=== PATIENT | female | born 1995 | race Caucasian/White ===

== ENCOUNTER 2017-06-05 13:15 | Emergency (ER) | payer SELFPAY ==
[2017-06-05 13:16] VITALS: BP 136/69; PULSE 84; PULSE 95; RESP 18; TEMP 37.2; O2SAT 100; BMI 20.2
--- NOTE | 2017-06-05 13:30 | ED.VISSUMM ---
- ER Visit Summary Date of Service: 06/05/17 Chief Complaint: Right lower back pain for the past 2 days History of Present Illness: The patient is a 21 F who presents with right lower back pain for the past 2 days. She has not taken anything because she is fearful if she is drug screened at work she would lose her job. She denies fever, chills or night sweats. She denies any radicular pain. She denies bowel bladder dysfunction. I saddle paresthesia anesthesia. She denies foot drop. She denies weakness in her thigh muscles going up or down steps. She has no prior history of back problems. Movement exacerbates her pain. She denies any direct trauma. She denies rash or any skin lesions. Please read written note for complete detail Physical Examination: Blood pressure is slightly elevated 136/69. She is thin. HEENT is unremarkable. Heart is regular without murmur, gallop or rub. S1 and S2 are normal. Lungs are clear to auscultation with good movement of air bilaterally. Abdomen is soft with minimal tenderness on the right side. She does have pain to palpation right lower back. Straight leg test is negative. Crossover test is negative. Patella and ankle reflex are 2+. EHL is intact. She has normal sensation. DP PT pulses are palpable. Movement exacerbates her pain. Palpation exacerbates her pain. No skin lesions are noted. Test Results: None are indicated Emergency Department Course and Treatment: Patient was informed she has a back strain recommend rest ice and anti-inflammatory. Because of concern for cost she states she would get [id number] medication. Treatment Plan: Appropriate home-going instructions Disposition: Discharged to home with significant other Impression: Acute right lower back pain/muscle strain lumbar sacral initial encounter This note was generated with [employer] dictation software. It may contain incorrect words, spelling, and punctuation that were not noted in review of the chart prior to signing ED Disposition - Plan for ED Patient: Disposition: Home or Assisted Living Chief Complaint: Back Instructions: ED Sprain Strain Lumbar Referrals: Joe Jaimes MD [Primary Care Provider] - 1 Week if not improving Additional Instructions: The proper dose of ibuprofen 4 units is 3 tablets every 8 hours or you can take 2 Aleve tablets every 12 hours. By ice to area of discomfort 20-30 minutes at a time 6-8 times a day. Avoid movement or activity that worsens your pain.
--- NOTE | 2017-06-05 13:34 | ED.DCSUM_ITS ---
- ER Visit Summary Date of Service: 06/05/17 Chief Complaint: Right lower back pain for the past 2 days History of Present Illness: The patient is a 21 F who presents with right lower back pain for the past 2 days. She has not taken anything because she is fearful if she is drug screened at work she would lose her job. She denies fever, chills or night sweats. She denies any radicular pain. She denies bowel bladder dysfunction. I saddle paresthesia anesthesia. She denies foot drop. She denies weakness in her thigh muscles going up or down steps. She has no prior history of back problems. Movement exacerbates her pain. She denies any direct trauma. She denies rash or any skin lesions. Please read written note for complete detail Physical Examination: Blood pressure is slightly elevated 136/69. She is thin. HEENT is unremarkable. Heart is regular without murmur, gallop or rub. S1 and S2 are normal. Lungs are clear to auscultation with good movement of air bilaterally. Abdomen is soft with minimal tenderness on the right side. She does have pain to palpation right lower back. Straight leg test is negative. Crossover test is negative. Patella and ankle reflex are 2+. EHL is intact. She has normal sensation. DP PT pulses are palpable. Movement exacerbates her pain. Palpation exacerbates her pain. No skin lesions are noted. Test Results: None are indicated Emergency Department Course and Treatment: Patient was informed she has a back strain recommend rest ice and anti-inflammatory. Because of concern for cost she states she would get [id number]-[id number] medication. Treatment Plan: Appropriate home-going instructions Disposition: Discharged to home with significant other Impression: Acute right lower back pain/muscle strain lumbar sacral initial encounter This note was generated with [employer] dictation software. It may contain incorrect words, spelling, and punctuation that were not noted in review of the chart prior to signing ED Disposition - Plan for ED Patient: Disposition: Home or Assisted Living Chief Complaint: Back Instructions: ED Sprain Strain Lumbar Referrals: Joe Jaimes MD [Primary Care Provider] - 1 Week if not improving Additional Instructions: The proper dose of ibuprofen 4 units is 3 tablets every 8 hours or you can take 2 Aleve tablets every 12 hours. By ice to area of discomfort 20-30 minutes at a time 6-8 times a day. Avoid movement or activity that worsens your pain.
== END 2017-06-05 13:56 | disposition home or self-care (01) ==
PROVIDERS: Emergency Provider Emergency Medicine; Family Provider Family Medicine; PCP Family Medicine
DX: S39.012A Strain of muscle, fascia and tendon of lower back, initial encounter (principal); M54.5 Low back pain; Z79.899 Other long term (current) drug therapy; X58.XXXA Exposure to other specified factors, initial encounter; Y93.9 Activity, unspecified; Y92.9 Unspecified place or not applicable; Y99.9 Unspecified external cause status
CPT/HCPCS: 99282

== ENCOUNTER 2017-11-07 23:13 | Emergency (ER) | payer SELFPAY ==
[2017-11-07 23:14] VITALS: BP 130/69; PULSE 92; RESP 16; TEMP 37.1; O2SAT 100; BMI 21.3
--- NOTE | 2017-11-07 23:30 | EKG12_ITS ---
Test Reason : HEADACHE Blood Pressure : / mmHG Vent. Rate : 079 BPM Atrial Rate : 079 BPM P-R Int : 188 ms QRS Dur : 078 ms QT Int : 336 ms P-R-T Axes : 062 084 048 degrees QTc Int : 385 ms Normal sinus rhythm Normal ECG Confirmed by KYLIE BYERS, SANTIAGO ([id number]), assistant film editor GORDON HARGROVE ([id number]) on 11/09/2017 1:59:30 PM Referred By: LANEY Confirmed By:SANTIAGO ESPINAL MD
--- NOTE | 2017-11-07 23:36 | ED.RN ---
NO OLD EKGS IN MUSE.
[2017-11-07] MEDS: Metoclopramide 10 MG/2 ML Vial IV (23:55)
[2017-11-07] MEDS: 0.9% Normal Saline 1,000 ML 999 ML IV (23:55)
[2017-11-07 23:57] VITALS: BP 113/60; BP 120/73; BP 125/72; PULSE 76; PULSE 82; PULSE 86
[2017-11-08 00:07] LABS: Absolute Lymphocyte Count 1.92 X10^3/ul (0.83-4.51); Absolute Neutrophil Count 4.4 X10^3/uL (2.0-7.7); Basophil# 0.01 X10^3/uL; Basophil% 0.1 % (0-1); Eosinophils% 2.9 % (0-5); Hematocrit 41.4 % (37-47); Hemoglobin 13.7 g/dl (12.0-15.0); Lymphocyte # 1.92 X10^3/ul (4.0); Lymphocyte % 27.9 % (19-41); Mean Corp Hgb Conc 33.1 g/gl (32-36); Mean Corpuscular Hgb 30.6 pg (27.0-32.0); Mean Corpuscular Volume 92.4 fL (81-99); Mean Platelet Vol. 11.4 fl (6.2-12.0); Monocyte# 0.36 X10^3/uL; Monocyte% 5.2 % (0-10); Neutrophil # 4.37 X10^3/uL (2.7-7.7); Neutrophil % 63.8 % (47-70); POSITIVE COUNT NO; POSITIVE DIFFERENTIAL NO; POSITIVE MORPHOLOGY NO; Platelet Count 137 K/mm3 (150-450); RBC Distribution Width CV 12.2 % (11.6-14.6); RBC Distribution Width SD 41.6 fl (35.1-43.9); Red Blood Count 4.48 M/mm3 (4.2-5.4); White Blood Count 6.9 K/mm3 (4.4-11.0)
[2017-11-08 00:14] LABS: International Normalized Ratio 1.2; Prothrombin Time (Protime)PT. 14.7 SECONDS (11.7-14.9)
[2017-11-08 00:21] LABS: Anion Gap 5 (5-15); BUN 10 mg/dL (7-18); BUN/Creat Ratio 15.2 RATIO (10-20); Calcium,Total 8.4 mg/dL (8.5-10.1); Chloride 110 mmol/L (98-107); Creatinine, Serum 0.66 mg/dL (0.55-1.02); EST Glomerular Filtration Rate 122 mL/min (>60); Est Glom Filt Rate - Afr Amer 148 mL/min (>60); Estimated Creatinine Clearance 107.54 ml/min; Glucose 89 mg/dL (74-106); Potassium 3.6 mmol/L (3.5-5.1); Sodium Level 144 mmol/L (136-145)
[2017-11-08 02:59] LABS: Body Fluid Mononuclear WBC # 0.001 10^3/uL; Body Fluid Polynuclear WBC # 0.001 10^3/uL; Total Cell Count CSF 0.002 10^3/uL (0.000-0.000); White Count, CSF 0.002 10^3/uL (0.000-0.000)
[2017-11-08 03:02] LABS: Appearance CSF (character) CLEAR (Clear); Auto B Fluid Analyzer BKGD Ct COUNTS W/IN LIMITS (W/IN LIMITS); CSF Color COLORLESS (Colorless); RBC Count, Spinal Fluid 1 /mm-3 (None seen); Tested Tube # 4
[2017-11-08 03:03] LABS: Body Fluid QC Type(s) BF1Q
[2017-11-08 03:18] LABS: Glucose Spinal Fluid 62 mg/dL (40-75)
--- NOTE | 2017-11-08 03:33 | ED.VISSUMM ---
- ER Visit Summary Date of Service: 11/08/17 Chief Complaint: Headache History of Present Illness: The patient is a 22 F who presents with a headache. She has a history of a seizure disorder. She has been off of her seizure medication for several months. Today she developed a stabbing bitemporal headache. This was gradual onset throughout the day. She does report some light sensitivity and photophobia. No fall or head injury. No neck pain or stiffness. No fevers nausea vomiting or recent illness otherwise. No URI-like illness or infectious symptoms. She states that she went outside to smoke and after she came back and she began to feel dizzy and lightheaded. Her roommate had reported that she passed out. Patient states her roommate told her that her eyes were twitching. However there was no incontinence or tongue biting or seizure-like activity. No chest pain or shortness of breath. Physical Examination: Afebrile vitals are normal Moist mucous membranes Heart regular rate and rhythm Lungs are clear Abdomen soft Alert and oriented with no focal or lateralizing neurological deficits Neck is supple with no meningismus Test Results: EKG shows sinus rhythm at a rate of 79. Orthostatic vital signs are negative. Serum laboratory studies including CBC BMP INR all normal. CT the head is normal. Cerebrospinal fluid shows 2 WBCs, 1 RBC, normal glucose normal protein and negative Gram stain. Emergency Department Course and Treatment: Given headache and associated syncope subarachnoid hemorrhage has to be considered. After discussion of risks and benefits with informed consent lumbar puncture was performed which is negative. No evidence of subarachnoid hemorrhage or infectious process meningitis. Patient complains of a gradual onset headache throughout the day associated with some photophobia. I suspect this is most likely related to migraine. She was treated with IV Reglan. She did report some improvement of symptoms. I suspect her syncope was likely a vagal response related to pain. She did feel dizzy beforehand. Her EKG and orthostatics are normal. The patient will be discharged to follow-up with her primary care physician. She understands return for new or worsening symptoms. Treatment Plan: [] Disposition: Discharge Impression: Headache Syncope This note was generated with [employer] software. It may contain incorrect words, spelling, and punctuation that were not noted in review of the chart prior to signing ED Disposition - Plan for ED Patient: Chief Complaint: Syncope Referrals: Joe Jaimes MD [Primary Care Provider] -
--- NOTE | 2017-11-08 03:38 | ED.DEP ---
ED Disposition - Plan for ED Patient: Chief Complaint: Syncope Instructions: ED Syncope Vasovagal, ED Cephalgia Unspecified Referrals: Joe Jaimes MD [Primary Care Provider] -
[2017-11-08 03:48] VITALS: BP 136/62; PULSE 91; RESP 16; O2SAT 98
[2017-11-08 15:25] LABS: Pathologist Review Reviewed
--- NOTE | 2017-11-08 23:30 | CT_ITS ---
STUDY: CT BRAIN WITHOUT CONTRAST REASON FOR EXAM: Female, 22 years old. Headache RADIATION DOSAGE (If Supplied By Facility): CTDIvol = ( 44.99 ) mGy, DLP = ( 798.92 ) mGycm TECHNIQUE: Transaxial CT imaging of the brain was performed without administration of intravenous contrast material. Individualized dose optimization techniques were used for this CT. COMPARISON: None. FINDINGS: Normal soft tissue structures. Normal calvarium. Normal size ventricles and extra-axial spaces for the patient's age. Normal white matter tracts of the cerebral hemispheres. Normal basal ganglia and thalami. Normal brainstem. Normal cerebellum. There is no intracranial hemorrhage. There are no findings of an acute ischemic infarction. Normal visualized paranasal sinuses. CT/Brain/Head without Contrast IMPRESSION: Normal unenhanced CT scan of the brain. Electronically Signed: Brett Pierre MD at 1:34 EDT , Service support ,
== END 2017-11-08 06:12 | disposition home or self-care (01) ==
LOC: ED 23:52
PROVIDERS: Emergency Provider Emergency Medicine; Family Provider Family Medicine; PCP Family Medicine
DX: R51 Headache (principal); R55 Syncope and collapse; G40.909 Epilepsy, unspecified, not intractable, without status epilepticus; Z72.0 Tobacco use
CPT/HCPCS: 62270; 70450; 80048; 82945; 84157; 85025; 85610; 87070; 87205; 89050; 89051; 93005; 96361; 96374; 99285; J7030

== ENCOUNTER 2017-12-23 12:23 | Emergency (ER) | payer SELFPAY ==
[2017-12-23 12:24] VITALS: BP 119/79; PULSE 90; RESP 18; TEMP 36.6; O2SAT 99; BMI 21.0
--- NOTE | 2017-12-23 12:43 | ED.DCSUM_ITS ---
- ER Visit Summary Date of Service: 12/23/17 Chief Complaint: Left lower gum swelling History of Present Illness: The patient is a 22 F past medical history of seizures currently on no medications. States for the last several days she is a gradual onset arm swelling left lower jaw. No trauma. No discharge. No fever. No trouble swallowing or breathing. Physical Examination: Well-appearing young female. Vital signs are stable afebrile. H EENT exam dentition is in good shape. Her left lower gum along the incisor is mildly swollen and tender. There is no abscess. There is no fluctuance. Other dentition is in good shape. No trouble opening or closing her mouth. No trismus. Posterior pharynx is normal. Neck nontender no lymphadenopathy. No facial swelling. Lungs clear to auscultation bilaterally. Heart regular rate and rhythm no murmur. Abdomen soft nontender. Otherwise exam unremarkable. Test Results: None Emergency Department Course and Treatment: Patient be started on Pen-Vee K 500 4 times daily. Treatment Plan: Pen-Vee K 500 4 times daily for 10 days. Follow-up with a dentist. Tylenol and/or Motrin for pain. Disposition: Discharge Impression: Acute gingivitis This note was generated with [employer] dictation software. It may contain incorrect words, spelling, and punctuation that were not noted in review of the chart prior to signing ED Disposition - Plan for ED Patient: Chief Complaint: Dental Referrals: Joe Jaimes MD [Primary Care Provider] -
--- NOTE | 2017-12-23 12:43 | ED.DEP ---
ED Disposition - Plan for ED Patient: Disposition: Home or Assisted Living Chief Complaint: Dental Instructions: Understanding Gingivitis Prescriptions: Penicillin Vk [Pen-Vee K , V-Cillin K] 500 mg PO 4X/DAY #40 tab Additional Instructions: Warm salt water gargling 3-5 times per day. Tylenol and/or Motrin for pain. Penicillin 500 mg 4 times a day for 10 days. Call follow-up with a dentist.
[2017-12-23] MEDS: Penicillin Vk 250 MG Tablet 500 MG PO (12:56)
[2017-12-23 13:00] VITALS: RESP 16
--- NOTE | 2017-12-23 13:00 | ED.RN ---
REVIEWED D/C INSTRUCTIONS, FOLLOW UP CARE, PRESCRIPTION, AND S/S THAT WOULD WARRANT A RETURN TO THE ED WITH PT. PT VERBALIZED AN UNDERSTANDING AND DENIES FURTHER QUESTIONS FOR THIS RN. PT SKIN P/W/D, RESP EVEN AND UNLABORED, PT A&O X 3, NO DISTRESS NOTED. PT AMBULATED OUT OF ED, GAIT STEADY.
== END 2017-12-23 13:02 | disposition home or self-care (01) ==
PROVIDERS: Emergency Provider Emergency Medicine; Family Provider Family Medicine; PCP Family Medicine
DX: K05.10 Chronic gingivitis, plaque induced (principal); K08.89 Other specified disorders of teeth and supporting structures; Z72.0 Tobacco use
CPT/HCPCS: 99283

== ENCOUNTER 2018-05-02 04:39 | Emergency (ER) | payer OTHER, SELFPAY ==
[2018-05-02 04:40] VITALS: BP 114/60; PULSE 72; RESP 14; TEMP 37.1; O2SAT 100; BMI 23.1
--- NOTE | 2018-05-02 04:53 | ED.VIS.GEN ---
History of Present Illness Chief Complaint: Sore Throat Narrative: Patient states she has had a sore throat for the last 2 days. She has been using Motrin. Positive sick contact with her significant other who recently had the flu as well as her. They both got over this. For the last 2 days she has had sore throat. No cough. No fevers or chills. Current severity is mild to moderate. He came in together for further evaluation. Past Medical History - Allergies and Home Meds Allergies/Adverse Reactions: Allergies peanut Allergy (Verified 12/23/17 12:23) Anaphylaxis Primary Care Physician: Joe Jaimes MD [Primary Care Provider] - Prior records reviewed: Yes Past Medical History: None Surgical History: noncontributory Lives: Spouse/ Significant Other Smoking Status: Former smoker Alcohol: None Drugs: None Review of Systems General: Denies: Chills, Fever, Sweats Eyes: Denies: Visual changes - bilaterally, Diplopia ENT: Reports: Sore throat. Denies: Rhinorrhea Cardiovascular: Denies: Chest pain, Palpitations Respiratory: Denies: Dyspnea, Cough, Dyspnea on exertion Gastrointestinal: Denies: Abdominal pain, Nausea, Vomiting, Diarrhea, Melena, Hematochezia Genitourinary: Denies: Dysuria, Hematuria, Frequency Musculoskeletal: Denies: Back pain, Extremity Pain Skin: Denies: Rash, Wounds Neurological: Denies: Headache, Weakness, Numbness Physical Exam Vital Signs/Narrative: Vital Signs Temp Pulse Resp BP Pulse Ox 05/02/18 04:40 98.7 F 72 14 114/60 100 General: Well nourished, Well developed, No Acute Distress Head: Normocephalic, Atraumatic Eyes: Perrl, EOMI ENT: Moist mucous membranes, No rhinorrhea Neck: Supple, Nontender Cardiovascular: Regular rate, Regular rhythm, No murmurs Respiratory: No distress, CTA bilaterally, Chest nontender Abdomen: Soft, Nontender, Nondistended, Normal bowel sounds Back: Nontender, Normal Inspection Extremities: Nontender, No edema Skin: Normal color, No rash Neurological: Alert, Oriented x3, Cranial nerves II-XII grossly intact, Normal Strength, Normal Sensation Psychological: Normal affect, Normal Mood Diagnostic/Tx/Re-eval - Medical Decision Making Patient given Tylenol. Rapid strep test obtained. Rapid strep negative. At this time I feel the patient likely just has a viral sore throat. We will follow-up as an outpatient and continue [id number] medications ED Disposition - Plan for ED Patient: Disposition: Home or Assisted Living Diagnosis: Viral sore throat Instructions: ED Pharyngitis Viral Referrals: Joe Jaimes MD [Primary Care Provider] -
[2018-05-02] MEDS: Acetaminophen 325 MG Tablet 650 MG PO (05:02)
--- NOTE | 2018-05-02 05:45 | ED.RN ---
PT REQUESTED NOTE FOR WORK. NOTE PROVIDED STATING WHAT TIME SHE CAME AND LEFT. ALL QUESTIONS ANSWERED, NO FURTHER CONCERNS.
== END 2018-05-02 05:45 | disposition home or self-care (01) ==
PROVIDERS: Emergency Provider Emergency Medicine; Family Provider Family Medicine; PCP Family Medicine
DX: J02.9 Acute pharyngitis, unspecified (principal); Z87.891 Personal history of nicotine dependence
CPT/HCPCS: 87880; 99283

== ENCOUNTER 2018-09-01 15:28 | Emergency (ER) | payer SELFPAY ==
[2018-09-01 15:29] VITALS: BP 133/71; PULSE 93; RESP 16; TEMP 36.4; O2SAT 100; BMI 20.6
[2018-09-01 16:25] LABS: Internal QC Validated? YES +Cl - CLEAR BKGD; Pregnancy, Urine Negative Negative
--- NOTE | 2018-09-01 16:27 | ED.DCSUM_ITS ---
- ER Visit Summary Date of Service: 09/01/18 Chief Complaint: Request test History of Present Illness: The patient is a 22 F requesting test. She states her last period was in June. She took 2 home tests which were both positive. She states she needs a confirmation test so she can apply for Medicaid. She denies vaginal bleeding. Denies pelvic cramping. Denies other complaints. Physical Examination: Vitals are stable. Patient is afebrile. Alert no acute distress. HEENT exam is unremarkable. Neck is supple. Lungs are clear and equal bilaterally. Heart is regular rate and rhythm. Abdomen is soft nontender nondistended. No guarding or rebound Extremities are unremarkable. Skin is warm and dry. Remainder of exam is unremarkable. Emergency Department Course and Treatment: Urine test is negative. Patient is advised to follow-up with LANDSCAPE TECHNICIAN for irregular periods. Advised to return to the ED for worsening complaints. Disposition: Discharge home Impression: Irregular menstrual periods This note was generated with [employer] dictation software. It may contain incorrect words, spelling, and punctuation that were not noted in review of the chart prior to signing ED Disposition - Plan for ED Patient: Referrals: Joe Jaimes MD [Primary Care Provider] -
--- NOTE | 2018-09-01 16:31 | ED.DEP ---
ED Disposition - Plan for ED Patient: Instructions: Amenorrhea Referrals: Joe Jaimes MD [Primary Care Provider] - Bridget Quintero MD [STAFF PHYSICIAN] -
== END 2018-09-01 16:54 | disposition home or self-care (01) ==
LOC: ED 16:19
PROVIDERS: Emergency Provider Emergency Medicine; Family Provider Family Medicine; PCP Family Medicine
DX: N92.6 Irregular menstruation, unspecified (principal); Z72.0 Tobacco use
CPT/HCPCS: 81025; 99282

== ENCOUNTER 2018-09-06 15:10 | Emergency (ER) | payer MEDICAID, SELFPAY ==
[2018-09-06 15:10] VITALS: BP 125/71; PULSE 113; RESP 18; TEMP 37.4; O2SAT 98; BMI 19.3
[2018-09-06 17:15] LABS: hCG Titer Quant., Serum 27 mIU/mL (1-3)
[2018-09-06 18:06] VITALS: BP 119/74; PULSE 92; RESP 18; O2SAT 99
--- NOTE | 2018-09-06 18:07 | ED.RN ---
THIS NURSE REVIEWED D/C INSTRUCTIONS WITH PT. PT VERBALIZED UNDERSTANDING OF INSTRUCTIONS. PT DENIES FURTHER NEEDS OR QUESTIONS AT THIS TIME
--- NOTE | 2018-09-06 23:21 | ED.DCSUM_ITS ---
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 She reports that she had a negative test in the [facility] September 01. She then went to the care center and had a posit alicia test. She is concerned because just prior to coming respiration she wiped after urinating and there was a spot of brown blood. She denies any bleeding other than that. She denies any dysuria or frequency. She has had no vaginal discharge. She denies any abdominal pain. Physical Examination: Vitals: Stable. Afebrile. General: Well-nourished and well-developed. Head: Normocephalic atraumatic. Neck: Supple, no lymphadenopathy. No JVD. Nontender. Cardiovascular: Regular rate and rhythm. No murmurs. Respiratory: No respiratory distress. Clear to auscultation bilaterally. Abdominal: Soft, nontender, nondistended, normal bowel sounds. No guarding, rebound, or peritoneal signs. Back: Nontender. Extremities: Nontender, no edema. Skin: Normal color, no rash. Neurologic: Alert and oriented ?3. Cranial nerves II through XII are intact. Normal strength and sensation. Psych: Normal affect. Test Results: Quantitative hCG is 27. Emergency Department Course and Treatment: Patient is resting comfortably. Treatment Plan: I discussed the patient with Dr. Solis. At this time she is not far enough along to see anything with ultrasound so this was not obtained. Is also felt that she is not far enough along for the fetus to have any blood and RhoGam would not be necessary. Because of this and ABO Rh was not obtained. She will be discharged with instructions to get a repeat quantitative hCG in [address] Solis within 3 to 5 days. Return to the emergency department for any worsening symptoms. Disposition: To home in improved and stable condition. Impression: 1. . 2. Vaginal bleeding. This note was generated with [employer] dictation software. It may contain incorrect words, spelling, and punctuation that were not noted in review of the chart prior to signing ED Disposition - Plan for ED Patient: Disposition: Home or Assisted Living Referrals: Joe Jaimes MD [Primary Care Provider] -
== END 2018-09-06 18:08 | disposition home or self-care (01) ==
PROVIDERS: Emergency Provider Emergency Medicine; Family Provider Family Medicine; PCP Family Medicine
DX: O46.90 Antepartum hemorrhage, unspecified, unspecified trimester (principal); O99.330 Smoking (tobacco) complicating pregnancy, unspecified trimester; Z3A.00 Weeks of gestation of pregnancy not specified
CPT/HCPCS: 84702; 99282

== ENCOUNTER → 2018-09-11 | Outpatient (CLI) | payer MEDICAID, SELFPAY ==
[2018-09-06 15:10] VITALS: BMI 19.3
[2018-09-11 12:57] LABS: hCG Titer Quant., Serum 3 mIU/mL (1-3)
== END | disposition home or self-care (01) ==
PROVIDERS: Family Provider Family Medicine; PCP Family Medicine; Referring Provider Emergency Medicine; Visit Provider Emergency Medicine
DX: Z34.90 Encounter for supervision of normal pregnancy, unspecified, unspecified trimester (principal)
CPT/HCPCS: 36415; 84702

== ENCOUNTER 2019-01-06 17:38 | Emergency (ER) | payer SELFPAY ==
[2019-01-06 17:39] VITALS: BP 126/62; PULSE 105; RESP 16; TEMP 37.1; O2SAT 100; BMI 21.2
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
--- NOTE | 2019-01-06 18:34 | ED.DEP ---
ED Disposition - Plan for ED Patient: Instructions: Abrasion Referrals: Joe Jaimes MD [Primary Care Provider] -
== END 2019-01-06 19:00 | disposition home or self-care (01) ==
PROVIDERS: Emergency Provider Emergency Medicine; Family Provider Family Medicine; PCP Family Medicine
DX: S00.511A Abrasion of lip, initial encounter (principal); X58.XXXA Exposure to other specified factors, initial encounter
CPT/HCPCS: 99283

== ENCOUNTER 2019-02-07 00:21 | Emergency (ER) | payer OTHER, SELFPAY ==
[2019-02-07 00:25] VITALS: BP 155/114; PULSE 117; RESP 15; TEMP 36.9; O2SAT 100; BMI 25.2
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
[2019-02-07 01:27] LABS: Hematocrit 41.4 % (37-47); Hemoglobin 13.9 g/dL (12.0-15.0); Mean Corp Hgb Conc 33.6 g/dL (32-36); Mean Corpuscular Hgb 31.6 pg (27.0-32.0); Mean Corpuscular Volume 94.1 fL (81-99); Platelet Count 181 K/mm3 (150-450); RBC Distribution Width CV 12.3 % (11.6-14.6); RBC Distribution Width SD 42.9 fl (35.1-43.9); White Blood Count 13.3 K/mm3 (4.4-11.0)
[2019-02-07 01:39] LABS: Anion Gap 6 (5-15); BUN 13 mg/dL (7-18); BUN/Creat Ratio 17.4 RATIO (10-20); Calcium,Total 8.7 mg/dL (8.5-10.1); Chloride 112 mmol/L (98-107); Creatinine, Serum 0.75 mg/dL (0.55-1.02); EST Glomerular Filtration Rate 104 mL/min (>60); Est Glom Filt Rate - Afr Amer 125 mL/min (>60); Estimated Creatinine Clearance 85.23 ml/min; Glucose 126 mg/dL (74-106); Potassium 3.5 mmol/L (3.5-5.1); Sodium Level 144 mmol/L (136-145)
[2019-02-07 02:00] VITALS: BP 125/68; PULSE 96; RESP 18; O2SAT 100
[2019-02-07 02:32] VITALS: BP 120/70; PULSE 90; RESP 18; O2SAT 98
== END 2019-02-07 02:33 | disposition home or self-care (01) ==
PROVIDERS: Emergency Provider Emergency Medicine
DX: G40.909 Epilepsy, unspecified, not intractable, without status epilepticus (principal); F17.200 Nicotine dependence, unspecified, uncomplicated
CPT/HCPCS: 80048; 85027; 99284; A4216

== ENCOUNTER 2019-06-30 13:38 | Emergency (ER) | payer SELFPAY ==
[2019-06-30 13:39] VITALS: BP 144/75; PULSE 91; RESP 16; TEMP 36.8; O2SAT 100; BMI 22.6
--- NOTE | 2019-06-30 13:58 | ED.DCSUM_ITS ---
History of Present Illness Chief Complaint: General Illness Informant: Patient Onset: Yesterday Context: Gradual Onset Timing: Continuous Quality: Burning dysuria Current Severity: Moderate Maximum Severity: Moderate Worsened by: Urinating Associated Symptoms: Loose stool x1 last night after eating a [place] cheese steak sandwich Narrative: Patient states since yesterday she does not feel right. She has malaise, felt like she might of had a fever, and felt like that when she arrived here in ER but has a normal temperature. She has no abdominal pain but has urinary frequency, dysuria, urgency. She has some discomfort in her low back nonlateralizing. She denies any severe pain when she wipes or painful rash. She denies any vaginal discharge or bleeding. She states her menses are irregular, her last one was last month sometime and does not think she is but states that she does not know. She does not have any abdominal pain. She wonders if she has an STD, I told her I do not think so based on her symptoms, then she states I used to do some bad things, and I want to know if there is anything wrong with my body. When asked to elaborate, she will not. Past Medical History - Allergies and Home Meds Allergies/Adverse Reactions: Allergies peanut Allergy (Verified 06/30/19 13:39) Anaphylaxis Primary Care Physician: Care Physician,No Primary [Primary Care Provider] - Smoking Status: Current every day smoker Review of Systems General: Reports: Fever, Malaise, Subjective. Denies: Chills, Sweats Eyes: Denies: Visual changes - bilaterally, Diplopia ENT: Denies: Bilateral ear pain, Rhinorrhea, Sore throat Cardiovascular: Denies: Chest pain, Palpitations Respiratory: Denies: Dyspnea, Cough, Dyspnea on exertion Gastrointestinal: Denies: Abdominal pain, Nausea, Vomiting, Diarrhea, Melena, Hematochezia Genitourinary: Reports: Dysuria, Frequency. Denies: Hematuria Musculoskeletal: Reports: Back pain. Denies: Neck pain, Swelling, Extremity Pain Skin: Denies: Rash, Wounds Neurological: Denies: Headache, Weakness, Numbness Physical Exam Vital Signs/Narrative: Vital Signs Temp Pulse Resp BP Pulse Ox 06/30/19 13:39 98.2 F 91 16 144/75 H 100 Inital Vital Signs reviewed: Yes General: Well nourished, Well developed, No Acute Distress - Well-appearing, conversive, laughing/smiling Head: Normocephalic, Atraumatic Eyes: Perrl, EOMI ENT: Moist mucous membranes, No rhinorrhea Neck: Supple, Nontender, No lymphadenopathy Cardiovascular: Regular rate, Regular rhythm, No murmurs Respiratory: No distress, CTA bilaterally, Chest nontender Abdomen: Soft, Nontender, Nondistended, Normal bowel sounds Back: Nontender, Normal Inspection. Negative for: CVA tenderness Extremities: Nontender, No edema Skin: Normal color, No rash, No Trauma Neurological: Alert, Oriented x3, Cranial nerves II-XII grossly intact, Normal Strength, Normal Sensation, Normal Gait Psychological: Normal affect, Normal Mood Diagnostic/Tx/Re-eval Laboratory Tests 06/30/19 06/30/19 Range/Units 14:00 14:00 Urine Color Yellow (Yellow) Urine Clarity Sl. Cloudy (Clear) Urine pH 6.0 (5.0 - 8.0) Ur Specific [place] 1.010 (1.002-1.030) Urine Protein Negative (Negative) mg/dl Urine Glucose (UA) Normal (Normal) mg/dl Urine Ketones Negative (Negative) mg/dl Urine Occult Blood Negative (Negative) /ul Urine Nitrite Negative (Negative) Urine Bilirubin Negative (Negative) mg/dL Urine Urobilinogen Normal (Normal) mg/dl Ur Leukocyte Esterase Negative (Negative) /ul Urine RBC 0 SEEN (0-5) /hpf Urine WBC 0 SEEN (0-5) /hpf Ur Squamous Epith Cells 0-5 SEEN (5-10) /hpf Urine Bacteria 1+ (None Seen) /hpf Urine Mucus 0 SEEN (<or=2+) /hpf Urine Test Negative Negative - Medical Decision Making Urinalysis shows negative , no sign of infection. I add a GC and chlamydia, but when I went back to see the patient she had eloped because she stated that her ride was getting impatient. Prior to this, we had a discussion about the possibility of rashes, STDs, herpes, she stated that she had no painful rash in her perineum he did not want me to evaluated at the time, but I did not get to reevaluate her and discussed the urine results. Disposition: [facility] ED Disposition - Plan for ED Patient: Disposition: Home or Assisted Living Diagnosis: Dysuria Referrals: Care Physician,No Primary [Primary Care Provider] -
[2019-06-30 14:11] LABS: Mucous, Urine 0 SEEN /hpf (<or=2+); Red Blood Cells-Urine 0 SEEN /hpf (0-5); White Blood Cells 0 SEEN /hpf (0-5)
[2019-06-30 14:17] LABS: Color, Urine Yellow (Yellow); Glucose, Dipstick Normal (Normal); Ketone-Dipstick Negative (Negative); Leukocyte Esterase-Dipstick Negative /ul (Negative); Nitrite-Dipstick Negative (Negative); Occult Blood-Urine Negative /ul (Negative); Protein-Dipstick Negative (Negative); Urine Bilirubin Dipstick Negative (Negative); Urine Clarity Sl. Cloudy (Clear); Urine Urobilinogen Normal (Normal)
[2019-06-30 14:18] LABS: Internal QC Validated? YES +Cl - CLEAR BKGD; Pregnancy, Urine Negative Negative
[2019-06-30 14:23] LABS: Bacteria 1+ /hpf (None Seen); Squamous Epithelial Cells - UA 0-5 SEEN /hpf (5-10)
--- NOTE | 2019-06-30 15:43 | ED.RN ---
pt states her ride is getting impatient and she needed to leave. dr. Corrigan made aware. pt exited the ER.
[2019-06-30 17:42] LABS: Chlamydia Trachomatis by PCR Negative (Negative); Neisserai gonorrhoeae by PCR Negative (Negative); Probe Check PASS; Sample Adequacy Control PASS; Specimen Processing Control PASS
== END 2019-06-30 15:53 | disposition home or self-care (01) ==
PROVIDERS: Emergency Provider Emergency Medicine
DX: R30.0 Dysuria (principal); F17.200 Nicotine dependence, unspecified, uncomplicated
CPT/HCPCS: 81001; 81025; 87491; 87591; 99282

== ENCOUNTER 2019-07-10 20:43 | Emergency (ER) | payer SELFPAY ==
[2019-07-10 20:45] VITALS: BP 131/100; PULSE 114; RESP 18; TEMP 37.2; O2SAT 97; BMI 23.3
[2019-07-10 20:54] VITALS: PULSE 84; RESP 16; O2SAT 98
[2019-07-10 22:25] LABS: Absolute Lymphocyte Count 1.06 X10^3/uL (0.83-4.51); Absolute Neutrophil Count 10.3 X10^3/uL (2.0-7.7); Basophil# 0.03 X10^3/uL; Basophil% 0.2 % (0-1); Eosinophil# 0.12 X10^3/uL; Hematocrit 44.1 % (37-47); Hemoglobin 14.6 g/dL (12.0-15.0); Lymphocyte # 1.06 X10^3/ul (4.0); Lymphocyte % 8.7 % (19-41); Mean Corp Hgb Conc 33.1 g/dL (32-36); Mean Corpuscular Hgb 31.5 pg (27.0-32.0); Mean Corpuscular Volume 95.2 fL (81-99); Mean Platelet Vol. 10.7 fl (6.2-12.0); Monocyte# 0.67 X10^3/uL; Monocyte% 5.5 % (0-10); NRBC Flagged by Analyzer 0 % (0-5); Neutrophil # 10.29 X10^3/uL (2.7-7.7); Neutrophil % 84.4 % (47-70); Platelet Count 255 K/mm3 (150-450); RBC Distribution Width CV 11.7 % (11.6-14.6); RBC Distribution Width SD 40.5 fl (35.1-43.9); Red Blood Count 4.63 M/mm3 (4.2-5.4); White Blood Count 12.2 K/mm3 (4.4-11.0)
[2019-07-10 22:36] LABS: ALB/GLOB Ratio 1.5 RATIO (0.9-2.4); AST(SGOT) 13 U/L (15-37); Alanine Aminotransfer ALT/SGPT 21 U/L (13-56); Albumin, Serum 4.4 g/dL (3.2-5.0); Alkaline Phosphatase 61 U/L (45-117); Anion Gap 7 (5-15); BUN 9 mg/dL (7-18); BUN/Creat Ratio 12.7 RATIO (10-20); Calcium,Total 9.2 mg/dL (8.5-10.1); Chloride 110 mmol/L (98-107); Creatinine, Serum 0.71 mg/dL (0.55-1.02); EST Glomerular Filtration Rate 110 mL/min (>60); Est Glom Filt Rate - Afr Amer 133 mL/min (>60); Estimated Creatinine Clearance 99.13 ml/min; Globulin 2.9 g/dL (2.2-4.2); Glucose 91 mg/dL (74-106); Potassium 3.6 mmol/L (3.5-5.1); Protein, Total 7.3 g/dL (6.4-8.2); Sodium Level 142 mmol/L (136-145)
[2019-07-10 22:40] LABS: Internal QC Validated? YES +Cl - CLEAR BKGD; Pregnancy, Serum, hCG Quali. NEGATIVE Negative
[2019-07-10 22:46] LABS: Amphetamine Urine VISTA NEGATIVE (<1000 ng/mL); Barbiturate Urine VISTA NEGATIVE (< 200 ng/mL); Benzodiazepine Urine VISTA NEGATIVE (< 200 ng/mL); Cocaine Urine VISTA NEGATIVE (< 300 ng/mL); Ecstacy Urine VISTA NEGATIVE (< 500 ng/mL); Methadone Urine VISTA NEGATIVE (< 300 ng/mL); PCP Urine VISTA NEGATIVE (< 25 ng/mL); THC Urine VISTA NEGATIVE (< 50 ng/mL); Vista UDS pH Range 6
[2019-07-10 23:04] VITALS: RESP 16
--- NOTE | 2019-07-10 23:12 | ED.DCSUM_ITS ---
- ER Visit Summary Date of Service: 07/10/19 Chief Complaint: Confused History of Present Illness: The patient is a 23 F who is brought in for confusion. Her family called police. According to police she was making threats about jumping out of a car. She was not suicidal, but rather she was having bizarre thoughts. She was talking about the red and blue. A friend had told police that she has a history of meth use and has not been sleeping. Patient says she has a history of seizures as a child but does not take medication for them. She has a history of methamphetamine, heroin, cocaine, and marijuana use. She denies any other complaints or suicidal thoughts. Physical Examination: Afebrile and vital signs unremarkable. Head and neck are atraumatic. Neck shows good range of motion and no meningeal signs. Heart regular. Lungs clear. Abdomen soft. Moves all extremities. No focal or lateralizing neurologic abnormalities. Patient makes bizarre comments, talking about a pin. She denies any suicidal or homicidal thoughts. She is labile and giddy/laughing at times. Test Results: White count 12.2. Metabolic panel unremarkable. Liver panel normal except for AST of 13. test negative. Talk screen negative. Alcohol negative. Emergency Department Course and Treatment: Patient presents with psychosis. There was concern based on her history for intoxication. Her tox screen and a lcohol were negative. She still may be under the influence. I cannot identify a medical cause at this time. Her vitals and exam are otherwise reassuring. I am also concerned for an underlying bipolar disorder or schizophrenia disorder causing psychosis. Will contact crisis for evaluation. Patient will likely need placement as I do not believe she is safe to go home at this time. She will be signed out to the oncoming physician for further disposition. Treatment Plan: As above Disposition: Pending Impression: Psychosis This note was generated with [employer] dictation software. It may contain incorrect words, spelling, and punctuation that were not noted in review of the chart prior to signing ED Disposition - Plan for ED Patient: Referrals: Care Physician,No Primary [Primary Care Provider] -
[2019-07-11] VITALS (8 sets, daily range): BP systolic 105–127; BP diastolic 48–62; PULSE 76–79; RESP 14–16; TEMP 36.6–37.3; O2SAT 97–100
--- NOTE | 2019-07-11 03:03 | EKG12_ITS ---
Test Reason : MHC Blood Pressure : / mmHG Vent. Rate : 074 BPM Atrial Rate : 074 BPM P-R Int : 192 ms QRS Dur : 070 ms QT Int : 338 ms P-R-T Axes : 054 076 063 degrees QTc Int : 375 ms Normal sinus rhythm with sinus arrhythmia Normal ECG Confirmed by YUVAL WERNER ([id number]), news editor GORDON HARGROVE ([id number]) on 07/14/2019 11:08:17 AM Referred By: ANDREW Confirmed By:YUVAL WERNER
[2019-07-11 07:10] LABS: Mucous, Urine 0 SEEN /hpf (<or=2+); Red Blood Cells-Urine 0 SEEN /hpf (0-5)
[2019-07-11 07:40] LABS: Color, Urine Straw (Yellow); Glucose, Dipstick Normal (Normal); Ketone-Dipstick Negative (Negative); Leukocyte Esterase-Dipstick Negative /ul (Negative); Nitrite-Dipstick Negative (Negative); Occult Blood-Urine 10 /ul (Negative); Protein-Dipstick Negative (Negative); Urine Bilirubin Dipstick Negative (Negative); Urine Clarity Clear (Clear); Urine Urobilinogen Normal (Normal); Urine pH 6.5 (5.0 - 8.0)
[2019-07-11 07:44] LABS: Bacteria 1+ /hpf (None Seen); Squamous Epithelial Cells - UA 0-5 SEEN /hpf (5-10); White Blood Cells 0-5 SEEN /hpf (0-5)
--- NOTE | 2019-07-11 11:33 | ED.RN ---
pt talking to mother on phone. contact numbers written down for pt
== END 2019-07-11 11:40 ==
PROVIDERS: Emergency Medicine; Emergency Provider Emergency Medicine
DX: F29 Unspecified psychosis not due to a substance or known physiological condition (principal)
CPT/HCPCS: 36415; 80053; 80307; 80320; 81001; 84703; 85025; 93005; 99285; G0480

== ENCOUNTER 2020-05-08 09:21 | Emergency (ER) | payer MEDICAID, SELFPAY ==
[2020-05-08 09:23] VITALS: BP 130/72; PULSE 93; RESP 17; TEMP 36.7; O2SAT 100; BMI 22.6
--- NOTE | 2020-05-08 10:34 | ED.DCSUM_ITS ---
History of Present Illness Chief Complaint: Female C/O Informant: Patient Narrative: 24-year-old female states that she woke today and urinated she noticed a discharge from her vagina. She states that she thought maybe it was yeast. She states that she feels irritated but not itchy. She denies any pelvic pain. No fevers. She states that she is concerned she may have contracted an STD. 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 She reports normal well woman exams in the past Past Medical History - Allergies and Home Meds Allergies/Adverse Reactions: Allergies peanut Allergy (Verified 05/08/20 09:22) Anaphylaxis Past Medical History: - - Depression anxiety Surgical History: noncontributory Smoking Status: Never smoker Drugs: None Review of Systems General: Denies: Chills, Fever, Sweats Eyes: Denies: Visual changes - bilaterally, Diplopia ENT: Denies: Rhinorrhea, Sore throat Cardiovascular: Denies: Chest pain, Palpitations Respiratory: Denies: Dyspnea, Cough, Dyspnea on exertion Gastrointestinal: Denies: Abdominal pain, Nausea, Vomiting, Diarrhea, Melena, Hematochezia Genitourinary: Reports: - - Vaginal discharge. Denies: Dysuria, Hematuria, Frequency Musculoskeletal: Denies: Back pain, Extremity Pain Skin: Denies: Rash, Wounds Neurological: Denies: Headache, Weakness, Numbness Physical Exam Vital Signs/Narrative: Vital Signs Temp Pulse Resp BP Pulse Ox 05/08/20 09:23 98.1 F 93 17 130/72 H 100 Inital Vital Signs reviewed: Yes General: Well nourished, Well developed, No Acute Distress Head: Normocephalic, Atraumatic Eyes: Perrl, EOMI ENT: Moist mucous membranes, No rhinorrhea Neck: Supple, Nontender Cardiovascular: Regular rate, Regular rhythm, No murmurs Respiratory: No distress, CTA bilaterally, Chest nontender Abdomen: Soft, Nontender, Nondistended, Normal bowel sounds : - - There is copious amounts of a whitish to yellow discharge. No evidence of yeast noted. No CMT. No adnexal masses or tenderness. Uterine nontender. Back: Nontender, Normal Inspection Extremities: Nontender, No edema Skin: Normal color, No rash Neurological: Alert, Oriented x3, Cranial nerves II-XII grossly intact, Normal Strength, Normal Sensation Psychological: Normal affect, Normal Mood Diagnostic/Tx/Re-eval Laboratory Last Values Urine Color Yellow (Yellow) 05/08/20 10:24 Urine Clarity Clear (Clear) 05/08/20 10:24 Urine pH 6.0 (5.0 - 8.0) 05/08/20 10:24 Ur Specific [place] 1.020 (1.002-1.030) 05/08/20 10:24 Urine Protein Negative mg/dl (Negative) 05/08/20 10:24 Urine Glucose (UA) Normal mg/dl (Normal) 05/08/20 10:24 Urine Ketones Negative mg/dl (Negative) 05/08/20 10:24 Urine Occult Blood 10 /ul (Negative) H 05/08/20 10:24 Urine Nitrite Negative (Negative) 05/08/20 10:24 Urine Bilirubin Negative mg/dL (Negative) 05/08/20 10:24 Urine Urobilinogen Normal mg/dl (Normal) 05/08/20 10:24 Ur Leukocyte Esterase 500 /ul (Negative) H 05/08/20 10:24 Urine RBC 0 SEEN /hpf (0-5) 05/08/20 10:24 Urine WBC 10-25 SEEN /hpf (0-5) 05/08/20 10:24 Ur Squamous Epith Cells 0-5 SEEN /hpf (5-10) 05/08/20 10:24 Urine Bacteria 1+ /hpf (None Seen) 05/08/20 10:24 Urine Mucus 2+ /hpf (<or=2+) 05/08/20 10:24 Urine Test Negative Negative 05/08/20 10:24 Chlam trachomat DNA PCR Negative (Negative) 05/08/20 10:24 N.gonorrhoeae DNA (PCR) Negative (Negative) 05/08/20 10:24 - Medical Decision Making Urinalysis shows 10-25 white cells 1+ bacteria. I think this is most likely from the copious amount of vaginal discharge. She does not have any urinary symptoms. Patient does not have the availability to wait for her gonorrhea and Chlamydia testing. I will treat this as bacterial vaginosis. If gonorrhea chlamydia come back positive she will receive a phone call with instructions to return to emergency. Yulia and Chlamydia test were negative. ED Disposition - Plan for ED Patient: Disposition: Home or Assisted Living Diagnosis: Bacterial vaginosis Instructions: Vaginal Infection: Bacterial Vaginosis Prescriptions: Metronidazole [Flagyl] 500 mg PO BID 7 Days #14 tablet Prescription Printed Additional Instructions: Please follow-up with your final canoe inspector within 2 weeks Please refrain from sexual intercourse until your symptoms have resolved and you are cleared by your final canoe inspector
[2020-05-08 10:39] LABS: Red Blood Cells-Urine 0 SEEN /hpf (0-5)
[2020-05-08 10:47] LABS: Color, Urine Yellow (Yellow); Glucose, Dipstick Normal (Normal); Ketone-Dipstick Negative (Negative); Leukocyte Esterase-Dipstick 500 /ul (Negative); Nitrite-Dipstick Negative (Negative); Occult Blood-Urine 10 /ul (Negative); Protein-Dipstick Negative (Negative); Urine Bilirubin Dipstick Negative (Negative); Urine Clarity Clear (Clear); Urine Urobilinogen Normal (Normal)
[2020-05-08 10:50] LABS: Internal QC Validated? YES +Cl - CLEAR BKGD; Pregnancy, Urine Negative Negative; Record Kit Lot#,Urine Preg 42077
[2020-05-08 10:54] VITALS: BP 110/72; PULSE 88; RESP 16; O2SAT 100
[2020-05-08 10:57] LABS: White Blood Cells 10-25 SEEN /hpf (0-5)
[2020-05-08 10:58] LABS: Mucous, Urine 2+ /hpf (<or=2+); Squamous Epithelial Cells - UA 0-5 SEEN /hpf (5-10)
[2020-05-08 10:59] LABS: Bacteria 1+ /hpf (None Seen)
[2020-05-08 12:47] LABS: Chlamydia Trachomatis by PCR Negative (Negative); Neisserai gonorrhoeae by PCR Negative (Negative); Probe Check PASS; Sample Adequacy Control PASS; Specimen Processing Control PASS
== END 2020-05-08 10:55 | disposition home or self-care (01) ==
LOC: ED 10:48
PROVIDERS: Emergency Provider Emergency Medicine
DX: N76.0 Acute vaginitis (principal); B96.89 Other specified bacterial agents as the cause of diseases classified elsewhere; F41.9 Anxiety disorder, unspecified; F32.9 Major depressive disorder, single episode, unspecified; Z79.899 Other long term (current) drug therapy
CPT/HCPCS: 81001; 81025; 87491; 87591; 99282

== ENCOUNTER → 2024-06-03 | Outpatient (CLI) | payer OTHER, MEDICAID, SELFPAY ==
[2024-06-03 17:04] LABS: Absolute Lymphocyte Count 1.92 X10^3/uL (0.83-4.51); Absolute Neutrophil Count 7.2 X10^3/uL (2.0-7.7); Basophil# 0.05 X10^3/uL; Basophil% 0.5 % (0-1); Eosinophil# 0.22 X10^3/uL; Eosinophils% 2.2 % (0-5); Hematocrit 39.5 % (37-47); Hemoglobin 13.3 g/dL (12.0-15.0); Lymphocyte # 1.92 X10^3/ul (0.83-4.51); Lymphocyte % 19.4 % (19-41); Mean Corp Hgb Conc 33.7 g/dL (32-36); Mean Corpuscular Hgb 31.4 pg (27.0-32.0); Mean Corpuscular Volume 93.2 fL (81-99); Mean Platelet Vol. 11.9 fl (6.2-12.0); NRBC Flagged by Analyzer 0 % (0-5); Neutrophil # 7.19 X10^3/uL (2.7-7.7); Neutrophil % 72.5 % (47-70); Platelet Count 220 K/mm3 (150-450); RBC Distribution Width SD 41.1 fl (35.1-43.9); Red Blood Count 4.24 M/mm3 (4.2-5.4); White Blood Count 9.9 K/mm3 (4.4-11.0)
[2024-06-03 17:34] LABS: Hemoglobin A1c 4.6 % (<=5.6)
[2024-06-03 17:52] LABS: AST(SGOT) 17 U/L (<=31); Alanine Aminotransfer ALT/SGPT 20 U/L (<=34); Albumin, Serum 4.5 g/dL (3.5-5.0); Alkaline Phosphatase 64 U/L (35-104); Anion Gap 10 (5-15); BUN 11 mg/dL (4-19); BUN/Creat Ratio 13.8 RATIO (10-20); CPK Total, Creatine Kinase 66 U/L (24-195); Calcium,Total 9.2 mg/dL (7.6-11.0); Carbon Dioxide 24.4 mmol/L (21.0-32.0); Chloride 106 mmol/L (98-108); Cholesterol 151 mg/dL (<=200); Creatinine, Serum 0.77 mg/dL (0.70-1.20); EST Glomerular Filtration Rate 109 (>60); Globulin 2.3 g/dL (2.2-4.2); Glucose 79 mg/dL (70-99); High Density Lipoprotein 51 mg/dL; Low Density Lipoprotein Calc. 82 mg/dL; Magnesium 1.9 mg/dL (1.5-2.2); Protein, Total 6.8 g/dL (5.9-8.4); Sodium Level 140 mmol/L (133-145); Total Bilirubin 0.24 mg/dL (0.00-1.30); Triglycerides 90 mg/dL; Very Low Density Lipoprotein 18 mg/dL (5-40); Vitamin D,25 Hydroxy 31.9 ng/mL (30-100); cholesterol:hdl ratio screen 2.94
[2024-06-05 13:08] LABS: Anti-Centromere B Ab <0.2 AI (0.0-0.9); Anti-Chromatin <0.2 AI (0.0-0.9); Anti-Jo <0.2 AI (0.0-0.9); Anti-Scleroderma-70 AB <0.2 AI (0.0-0.9); Anti-dsDNA Ab 4 IU/mL (0-9); RNP Ab <0.2 AI (0.0-0.9); SJOGREN'S Anti-SS-A test < 0.2 AI (0.0-0.9); SJOGREN'S Anti-SS-B test < 0.2 AI (0.0-0.9); Smith Ab <0.2 AI (0.0-0.9)
== END | disposition home or self-care (01) ==
LOC: BIMLAB 15:00
PROVIDERS: PCP Internal Medicine; Referring Provider Internal Medicine; Visit Provider Internal Medicine
DX: F41.9 Anxiety disorder, unspecified (principal); F29 Unspecified psychosis not due to a substance or known physiological condition; G40.909 Epilepsy, unspecified, not intractable, without status epilepticus; F32.A Depression, unspecified; Z79.899 Other long term (current) drug therapy; R52 Pain, unspecified
CPT/HCPCS: 36415; 80053; 80061; 82306; 82550; 83036; 83735; 84443; 85025; 86225; 86235

== ENCOUNTER 2024-07-02 11:27 | Emergency (ER) | payer MEDICARE, MEDICAID, SELFPAY ==
[2024-07-02 11:28] VITALS: BP 118/76; PULSE 88; RESP 16; TEMP 36.6; O2SAT 99; BMI 22.4
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
[2024-07-02 12:35] VITALS: BP 115/68; PULSE 79; RESP 16; TEMP 36.8; O2SAT 99
== END 2024-07-02 12:36 | disposition home or self-care (01) ==
PROVIDERS: Emergency Provider Emergency Medicine; PCP Internal Medicine; Visit Provider Emergency Medicine
DX: S00.521A Blister (nonthermal) of lip, initial encounter (principal); Z79.899 Other long term (current) drug therapy; X58.XXXA Exposure to other specified factors, initial encounter
CPT/HCPCS: 99283

== ENCOUNTER 2024-08-14 15:58 | Emergency (ER) | payer MEDICARE, MEDICAID, SELFPAY ==
[2024-08-14 15:59] VITALS: BP 127/92; PULSE 74; RESP 18; TEMP 36.2; O2SAT 100; BMI 22.6
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
[2024-08-14 17:17] VITALS: BP 104/56; PULSE 68; RESP 16; TEMP 36.7; O2SAT 100
== END 2024-08-14 17:18 | disposition home or self-care (01) ==
PROVIDERS: Emergency Provider Emergency Medicine; PCP Internal Medicine; Visit Provider Emergency Medicine
DX: L23.9 Allergic contact dermatitis, unspecified cause (principal); Z87.891 Personal history of nicotine dependence; Z79.899 Other long term (current) drug therapy; Z87.2 Personal history of diseases of the skin and subcutaneous tissue
CPT/HCPCS: 99282

== ENCOUNTER 2024-08-15 09:26 | Emergency (ER) | payer MEDICARE, MEDICAID, SELFPAY ==
[2024-08-15 09:27] VITALS: BP 120/80; PULSE 76; RESP 16; TEMP 36.9; O2SAT 100; BMI 22.3
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
[2024-08-15] MEDS: Ketorolac 30 MG/ML Syringe IM (10:48)
--- OUTSIDE RECORDS SUMMARY | 2024-08-15 11:05 | XMS RPT_ITS | CCD ---
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 ([place]) Comment on above: Performed By: #### T SH, A1C, CBC, ADIFF, ANEU, FE, CMP, FERR, GFR, FT4, VIDH ####[place] [address] RBC 4.55 10 6/mcL Normal 4.10-5.30 [facility] ([place] Comment on above: Performed By: #### T SH, A1C, CBC, ADIFF, ANEU, FE, CMP, FERR, GFR, FT4, VIDH ####[place] [address] WBC 7.7 10 3/mcL Normal 4.5-10.8 [facility] ([place] Comment on above: Performed By: #### T SH, A1C, CBC, ADIFF, ANEU, FE, CMP, FERR, GFR, FT4, VIDH ####[place] [address] CMPon 03-16-2023 Albumin Level 4.0 G/dL Normal 3.2-4.8 [facility] ([place] Comment on above: Performed By: #### T SH, A1C, CBC, ADIFF, ANEU, FE, CMP, FERR, GFR, FT4, VIDH ####[address] [address] Albumin/Globulin [Mass ratio] 1.4 {ratio} Normal 0.9-1.6 [facility] ([place]) Comment on above: Performed By: #### T SH, A1C, CBC, ADIFF, ANEU, FE, CMP, FERR, GFR, FT4, VIDH ####[address] [address] ALP [Catalytic activity/Vol] 45 U/L Normal 38-126 [facility] ([place]) Comment on above: Performed By: #### T SH, A1C, CBC, ADIFF, ANEU, FE, CMP, FERR, GFR, FT4, VIDH ####[place] [id number] ALT [Catalytic activity/Vol] 13 U/L Normal 10-49 [facility] ([place]) Comment on above: Performed By: #### T SH, A1C, CBC, ADIFF, ANEU, FE, CMP, FERR, GFR, FT4, VIDH ####[place] [id number] AST [Catalytic activity/Vol] 12 U/L Normal 8-34 [facility] ([place]) Comment on above: Performed By: #### T SH, A1C, CBC, ADIFF, ANEU, FE, CMP, FERR, GFR, FT4, VIDH ####[place] [id number] Bili Total 0.50 mg/dL Normal 0.20-1.20 [facility] ([place]) Comment on above: Result Comment: Use of this assay is not recommended for patients undergoing treatment with eltrombopag due to the potential for falsely elevated results. Performed By: #### T SH, A1C, CBC, ADIFF, ANEU, FE, CMP, FERR, GFR, FT4, VIDH ####[place] [address] BUN/Creatinine Ratio 16.2 ratio Normal 10.0-22.0 [facility] ([place] Comment on above: Performed By: #### T SH, A1C, CBC, ADIFF, ANEU, FE, CMP, FERR, GFR, FT4, VIDH ####[address] [address] Calcium [Mass/Vol] 9.7 mg/dL Normal 8.7-10.4 [facility] ([place] Comment on above: Performed By: #### T SH, A1C, CBC, ADIFF, ANEU, FE, CMP, FERR, GFR, FT4, VIDH ####[place] [id number] Chloride [Moles/Vol] 111 mmol/L High 98-110 [facility] ([place] Comment on above: Performed By: #### T SH, A1C, CBC, ADIFF, ANEU, FE, CMP, FERR, GFR, FT4, VIDH ####[place] [address] CO2 [Moles/Vol] 33 mmol/L High 22-32 [facility] ([place] Comment on above: Performed By: #### T SH, A1C, CBC, ADIFF, ANEU, FE, CMP, FERR, GFR, FT4, VIDH ####[place] [address] Creatinine [Mass/Vol] 1.05 mg/dL Normal 0.50-1.20 [facility] ([place] Comment on above: Performed By: #### T SH, A1C, CBC, ADIFF, ANEU, FE, CMP, FERR, GFR, FT4, VIDH ####[place] [address] Electrolyte Balance 0.0 mEq/L Low 4.0-15.0 [facility] ([place]) Comment on above: Performed By: #### T SH, A1C, CBC, ADIFF, ANEU, FE, CMP, FERR, GFR, FT4, VIDH ####[place] [address] Globulin 2.8 G/dL Normal 1.5-3.8 [facility] ([place]) Comment on above: Performed By: #### T SH, A1C, CBC, ADIFF, ANEU, FE, CMP, FERR, GFR, FT4, VIDH ####[address] [address] Glucose [Mass/Vol] 80 mg/dL Normal 70-110 [facility] ([place] Comment on above: Performed By: #### T SH, A1C, CBC, ADIFF, ANEU, FE, CMP, FERR, GFR, FT4, VIDH ####[place] [address] Potassium [Moles/Vol] 4.5 mmol/L Normal 3.5-5.0 [facility] ([place]) Comment on above: Performed By: #### T SH, A1C, CBC, ADIFF, ANEU, FE, CMP, FERR, GFR, FT4, VIDH ####[place] [address] Sodium [Moles/Vol] 144 mmol/L Normal 136-145 [facility] ([place]) Comment on above: Performed By: #### T SH, A1C, CBC, ADIFF, ANEU, FE, CMP, FERR, GFR, FT4, VIDH ####[place] [address] Total Protein 6.8 G/dL Normal 5.7-8.2 [facility] ([place]) Comment on above: Result Comment: No te - New Reference Range in effect 19 Performed By: #### T SH, A1C, CBC, ADIFF, ANEU, FE, CMP, FERR, GFR, FT4, VIDH ####[place] [address] Urea nitrogen [Mass/Vol] 17.0 mg/dL Normal 8.0-22.0 [facility] ([place]) Comment on above: Performed By: #### T SH, A1C, CBC, ADIFF, ANEU, FE, CMP, FERR, GFR, FT4, VIDH ####[address] [address] FEon 03-16-2023 Iron [Mass/Vol] 117 ug/dL Normal 50-170 [facility] ([place]) Comment on above: Performed By: #### T SH, A1C, CBC, ADIFF, ANEU, FE, CMP, FERR, GFR, FT4, VIDH ####[place] [id number] Iggy 03-16-2023 Ferritin [Mass/Vol] 14.3 ng/mL Normal 8.0-252.0 [facility] ([place] Comment on above: Performed By: #### T SH, A1C, CBC, ADIFF, ANEU, FE, CMP, FERR, GFR, FT4, VIDH ####[place] [id number] [address] [place], [place] [id number] FT4on 03-16-2023 Free T4 [Mass/Vol] 1.12 ng/dL Normal 0.89-1.76 [facility] ([place]) Comment on above: Result Comment: No te - New Reference Range in effect 19 Performed By: #### T SH, A1C, CBC, ADIFF, ANEU, FE, CMP, FERR, GFR, FT4, VIDH ####[place] [address] LABORATORYOrdered By: SYSTEM SYSTEM on 03-16-2023 25-hydroxyvitamin D3 [Mass/Vol] 38.4 ng/mL Invalid Interpretation Code ADM SS Comment on above: Interpretive Data: I nterpretive Values Based on Total 25(OH)D: Severe Deficiency <20 ng/mL Mild to Moderate Deficiency 20-30 ng/mL Optimum Levels 30-100 ng/mL Toxicity Possible >100 ng/mL Albumin BCP dye [Mass/Vol] 4.0 G/dL Normal 3.2 - 4.8 G/dL ADM SS Albumin/Globulin [Mass ratio] 1.4 {ratio} Normal 0.9 - 1.6 ratio ADM SS ALP [Catalytic activity/Vol] 45 U/L Normal 38 - 126 U/L ADM SS ALT No additional P-5'-P [Catalytic activity/Vol] 13 U/L Normal 10 - 49 U/L ADM SS AST [Catalytic activity/Vol] 12 U/L Normal 8 - 34 U/L ADM SS Basophils (Bld) [#/Vol] 0.0 103/mcL Normal 0.0 - 0.3 10^3/mcL Workflow SS Basophils/100 WBC (Bld) 0.5 % Normal 0.0 - 2.5 % Workflow SS Bilirubin [Mass/Vol] 0.50 mg/dL Normal 0.20 - 1.20 mg/dL ADM SS Comment on above: Interpretive Data: U se of this assay is not recommended for patients undergoing treatment with eltrombopag due to the potential for falsely elevated results. Calcium [Mass/Vol] 9.7 mg/dL Normal 8.7 - 10. 4 mg/dL ADM SS Chloride [Moles/Vol] 111 mmol/L High 98 - 110 mEq/L ADM SS CO2 [Moles/Vol] 33 mmol/L High 22 - 32 mEq/L ADM SS Creatinine [Mass/Vol] 1.05 mg/dL Normal 0.50 - 1.20 mg/dL ADM SS Electrolyte Balance 0.0 mEq/L Low 4.0 - 15.0 mEq/L ADM SS Eosinophils (Bld) [#/Vol] 0.1 103/mcL Normal 0.0 - 0.7 10^3/mcL Workflow SS Eosinophils/100 WBC (Bld) 1.1 % Normal 0.0 - 6.0 % Workflow SS Erythrocyte distribution width (RBC) [Ratio] 12.7 % Normal 11.5 - 15.5 % Workflow SS Ferritin [Mass/Vol] 14.3 ng/mL Normal 8.0 - 252.0 ng/mL ADM SS Free T4 [Mass/Vol] 1.12 ng/dL Normal 0.89 - 1.76 ng/dL ADM SS Comment on above: Interpretive Data: * *Note - New Reference Range in effect 19 GFR/1.73 sq M.predicted among blacks MDRD (S/P/Bld) [Vol rate/Area] ml/min/1.73sqm Invalid Interpretation Code Chemistry S Comment on above: Interpretive Data: GFR Population mean for , Non- Americans Ages 20-29 = 116 mL/min/1.73 sq.m. Ages 30-39 = 107 mL/min/1.73 sq.m. Ages 40-49 = 99 mL/min/1.73 sq.m. Ages 50-59 = 93 mL/min/1.73 sq.m. Ages 60-69 = 85 mL/min/1.73 sq.m. Ages 70+ = 75 mL/min/1.73 sq.m. Chronic Kidney Disease: Less than 60 mL/min/1.73 square meters End Stage Renal Disease: Less than 15 mL/min/1.73 square meters GFR/1.73 sq M.predicted among non-blacks MDRD (S/P/Bld) [Vol rate/Area] ml/min/1.73sqm Invalid Interpretation Code AH Chemistry S Comment on above: Interpretive Data: GFR Population mean for , Non- Americans Ages 20-29 = 116 mL/min/1.73 sq.m. Ages 30-39 = 107 mL/min/1.73 sq.m. Ages 40-49 = 99 mL/min/1.73 sq.m. Ages 50-59 = 93 mL/min/1.73 sq.m. Ages 60-69 = 85 mL/min/1.73 sq.m. Ages 70+ = 75 mL/min/1.73 sq.m. Chronic Kidney Disease: Less than 60 mL/min/1.73 square meters End Stage Renal Disease: Less than 15 mL/min/1.73 square meters Globulin 2.8 G/dL Normal 1.5 - 3.8 G/dL ADM SS Glucose [Mass/Vol] 80 mg/dL Normal 70 - 110 mg/dL ADM SS HbA1c (Bld) [Mass fraction] 4.5 % Normal 4.0 - 6.0 % Auto Chem SS Hematocrit (Bld) [Volume fraction] 41.9 % Normal 34.0 - 46.0 % AH Workflow SS Hemoglobin (Bld) [Mass/Vol] 14.0 G/dL Normal 12.0 - 16.0 G/dL AH Workflow SS Iron [Mass/Vol] 117 ug/dL Normal 50 - 170 mcg/dL ADM SS Lymphocytes (Bld) [#/Vol] 1.4 103/mcL Normal 0.9 - 4.3 10^3/mcL AH Workflow SS Lymphocytes/100 WBC (Bld) 18.6 % Low 20.0 - 40.0 % AH Workflow SS MCH (RBC) [Entitic mass] 30.8 pg Normal 27.0 - 33.0 pg AH Workflow SS MCHC 33.4 G/dL Normal 32.0 - 36.0 G/dL AH Workflow SS MCV (RBC) [Entitic vol] 92.0 fL Normal 80.0 - 99.0 fL AH Workflow SS Monocytes (Bld) [#/Vol] 0.3 103/mcL Normal 0.1 - 1.4 10^3/mcL AH Workflow SS Monocytes/100 WBC (Bld) 3.5 % Normal 2.0 - 13.0 % AH Workflow SS Neutrophils (Bld) [#/Vol] 5.9 103/mcL Normal 2.3 - 8.1 10^3/mcL AH Workflow SS Neutrophils/100 WBC (Bld) 76.3 % High 50.0 - 75.0 % AH Workflow SS Platelet mean volume (Bld) [Entitic vol] 11.0 fL High 6.6 - 10.5 fL AH Workflow SS Platelets (Bld) [#/Vol] 159 103/mcL Normal 150 - 450 10^3/mcL AH Workflow SS Potassium [Moles/Vol] 4.5 mmol/L Normal 3.5 - 5.0 mEq/L AH ADM SS Protein [Mass/Vol] 6.8 G/dL Normal 5.7 - 8.2 G/dL AH ADM SS Comment on above: Interpretive Data: * *Note - New Reference Range in effect 19 RBC (Bld) [#/Vol] 4.55 106/mcL Normal 4.10 - 5.30 10^6/mcL AH Workflow SS Sodium [Moles/Vol] 144 mmol/L Normal 136 - 145 mEq/L AH ADM SS TSH Qn 0.703 mIU/mL Normal 0.550 - 4.780 mIU/mL AH ADM SS Comment on above: Interpretive Data: * *Note - New Reference Range in effect 19 Urea nitrogen [Mass/Vol] 17.0 mg/dL Normal 8.0 - 22.0 mg/dL AH ADM SS Urea nitrogen/Creatinin e [Mass ratio] 16.2 ratio Normal 10.0 - 22.0 ratio AH ADM SS WBC (Bld) [#/Vol] 7.7 103/mcL Normal 4.5 - 10.8 10^3/mcL AH Workflow SS TSHon 03-16-2023 TSH 0.703 mIU/mL Normal 0.550-4.78 0 [facility] ([place]) Comment on above: Result Comment: No te - New Reference Range in effect 19 Performed By: #### T SH, A1C, CBC, ADIFF, ANEU, FE, CMP, FERR, GFR, FT4, VIDH ####[place] [id number] [address] [place] [address] VIDHon 03-16-2023 Vit. D 25-Hydroxy 38.4 ng/mL Normal [facility] ([place]) Comment on above: Result Comment: Inte rpretive Values Based on Total 25(OH)D: Severe Deficiency <20 ng/mL Mild to Moderate Deficiency 20-30 ng/mL Optimum Levels 30-100 ng/mL Toxicity Possible >100 ng/mL Performed By: #### T SH, A1C, CBC, ADIFF, ANEU, FE, CMP, FERR, GFR, FT4, VIDH ####[address] [address] CTPCRon 11-22-2022 C. trachomatis Interp Normal See CT Interp N [facility] ([place]) Comment on above: Result Comment: C. t rachomatis DNA not detected. Specimen is presumptive negative for C. trachomatis. A negative result does not preclude C. trachomatis infection because results depend on adequate specimen collection, absence of inhibitors, and sufficient DNA to be detected. See CT Interp N Performed By: #### C TPCR, NGPCR1 #### [address] [address] C.trachomatis PCR Negative Normal Negative [facility] ([place] Comment on above: Result Comment: Mole cular (PCR) assay performed on the Xenoportas [id number] system. Performed By: #### C TPCR, NGPCR1 #### [address] [address] Chlam Source Cervix Normal [facility] ([place]) Comment on above: Performed By: #### C TPCR, NGPCR1 #### [address] [address] [id number] 11-22-2022 GC PCR Source Cervix Normal [facility] ([place] Comment on above: Performed By: #### C TPCR, NGPCR1 #### [address] [address] N. gonorrhoeae (PCR) Negative Normal Negative [facility] ([place] Comment on above: Result Comment: Mole cular (PCR) assay performed on the [employer] 4800 System. Performed By: #### C TPCR, NGPCR1 #### [place] [address] N. gonorrhoeae Interp Normal See NG Interp N [facility] ([place]) Comment on above: Result Comment: N. g onorrhoeae DNA not detected. Specimen is presumptive negative for N. gonorrhoeae. A negative result does not preclude Neisseria gonorrhoeae infection because results depend on adequate specimen collection, absence of inhibitors, and sufficient DNA to be detected. See NG Interp N Performed By: #### C TPCR, NGPCR1 #### [place] [address] HBSAG 11-21-2022 Hep B Surf Ag Non-Reactive Normal Non-Reacti [facility] ([place]) Comment on above: Performed By: #### H BSAG, HCV1, HIV, RPR #### [place] [address] HCVon 11-21-2022 Hep C Ab Non-Reactive Normal Non-Reacti [facility] ([place]) Comment on above: Performed By: #### H BSAG, HCV1, HIV, RPR #### [place] [address] Hep C Ab Int Normal [facility] ([place]) Comment on above: Result Comment: Nonr eactive: Samples with a value < 0.80 are considered nonreactive (negative) for antibodies to HCV. A negative test result does not exclude the possibility of exposure to or infection with HCV. HCV antibodies may be undetectable in some stages of the infection and in some clinical conditions. See Interp Performed By: #### H BSAG, HCV1, HIV, RPR #### [place] [address] HIV 11-21-2022 HIV 1/2 [facility] Comment on above: Result Comment: Spec imen is negative for anti-HIV-1 and anti-HIV-2. Performed By: #### H BSAG, HCV1, HIV, RPR #### [address] [address] RPRon 11-21-2022 Reagin Ab RPR Ql (S) Non-Reactive Normal Non-Reacti ve [facility] ([place] Comment on above: Result Comment: The RPR test is a non-treponemal assay useful as an aid in the diagnosis of primary and secondary syphilis. It converts to positive generally within 2 weeks after the appearance of a lesion. This test is also useful for monitoring response to antibiotic therapy. A positive RPR screening test will be followed by the FTA ABS test. False positive RPR tests may occur in 1) patients with underlying autoimmune disorders, 2) elderly patients, 3) , and 4) other conditions with abnormal serum globulins. Performed By: #### H BSAG, HCV1, HIV, RPR ####[address] [address] .Auto Diffon 11-14-2022 Basophil, Absolute 0.1 10 3/mcL Normal 0.0-0.3 [facility] ([place]) Comment on above: Performed By: #### C MP, GFR, CBC, ADIFF, MD PAULOW, LIP ####[address] [address] Basophils/100 WBC (Bld) 0.5 % Normal 0.0-2.5 [facility] ([place] Comment on above: Performed By: #### C MP, GFR, CBC, ADIFF, PAULO, MDW, LIP ####[address] [address] Eosinophil, Absolute 0.1 10 3/mcL Normal 0.0-0.7 [facility] ([place] Comment on above: Performed By: #### C MP, GFR, CBC, ADIFF, PAULO, MDW, LIP ####[address] [address] Eosinophils/100 WBC (Bld) 0.6 % Normal 0.0-6.0 [facility] ([place] Comment on above: Performed By: #### C MP, GFR, CBC, ADIFF, ANEU, MDW, LIP ####[address] [address] Lymphocyte, Absolute 2.0 10 3/mcL Normal 0.9-4.3 [facility] ([place] Comment on above: Performed By: #### C MP, GFR, CBC, ADIFF, LEON BATES, LIP ####[address] [address] Lymphocytes/100 WBC (Bld) 14.6 % Low 20.0-40.0 [facility] ([place] Comment on above: Performed By: #### C MP, GFR, CBC, ADIFF, ANEU, W, LIP ####[address] [address] Monocyte, Absolute 0.7 10 3/mcL Normal 0.1-1.4 [facility] ([place] Comment on above: Performed By: #### C MP, GFR, CBC, ADIFF, ANEU, W, LIP ####[address] [address] Monocytes/100 WBC (Bld) 5.1 % Normal 2.0-13.0 [facility] ([place] Comment on above: Performed By: #### C MP, GFR, CBC, ADIFF, ANEU, W, LIP ####[address] [address] Neutrophils/100 WBC (Bld) 79.2 % High 50.0-75.0 [facility] ([place] Comment on above: Performed By: #### C MP, GFR, CBC, ADIFF, ANEU, LEON, LIP ####[address] [address] .GFRon 11-14-2022 GFR >60 Normal [facility] ([place] Comment on above: Result Comment: GFR Population mean for , Non- Americans Ages 20-29 = 116 mL/min/1.73 sq.m. Ages 30-39 = 107 mL/min/1.73 sq.m. Ages 40-49 = 99 mL/min/1.73 sq.m. Ages 50-59 = 93 mL/min/1.73 sq.m. Ages 60-69 = 85 mL/min/1.73 sq.m. Ages 70+ = 75 mL/min/1.73 sq.m. Chronic Kidney Disease: Less than 60 mL/min/1.73 square meters End Stage Renal Disease: Less than 15 mL/min/1.73 square meters Performed By: #### C MP, GFR, CBC, ADIFF, ANEU, MDW, LIP ####[address] [address] GFR Non- >60 Normal [facility] ([place] Comment on above: Result Comment: GFR Population mean for , Non- Americans Ages 20-29 = 116 mL/min/1.73 sq.m. Ages 30-39 = 107 mL/min/1.73 sq.m. Ages 40-49 = 99 mL/min/1.73 sq.m. Ages 50-59 = 93 mL/min/1.73 sq.m. Ages 60-69 = 85 mL/min/1.73 sq.m. Ages 70+ = 75 mL/min/1.73 sq.m. Chronic Kidney Disease: Less than 60 mL/min/1.73 square meters End Stage Renal Disease: Less than 15 mL/min/1.73 square meters Performed By: #### C MP, GFR, CBC, ADIFF, ANEU, MDW, LIP ####[place] [address] .MDWon 11-14-2022 Monocyte Distribution Width 15.71 Normal 0.00-20.00 [facility] ([place] Comment on above: Result Comment: For ED adult patients suspected of sepsis, MDW<=20.0 does not rule out sepsis or risk of sepsis Performed By: #### C MP, GFR, CBC, ADIFF, ANEU, MDW, LIP ####[address] [address] .NEUABSon 11-14-2022 Neutrophil, Absolute 10.9 10 3/mcL High 2.3-8.1 [facility] ([place]) Comment on above: Performed By: #### C MP, GFR, CBC, ADIFF, ANEU, MDW, LIP ####[place] [address] CBCon 11-14-2022 Erythrocyte distribution width (RBC) [Ratio] 12.7 % Normal 11.5-15.5 [facility] ([place] Comment on above: Performed By: #### C MP, GFR, CBC, ADIFF, ANEU, MDW, LIP ####[place] [address] Hematocrit (Bld) [Volume fraction] 32.1 % Low 34.0-46.0 [facility] ([place] Comment on above: Performed By: #### C MP, GFR, CBC, ADIFF, ANEU, MDW, LIP ####[place] [address] Hgb 10.9 G/dL Low 12.0-16.0 [facility] ([place] Comment on above: Performed By: #### C MP, GFR, CBC, ADIFF, ANEU, MDW, LIP ####[place] [address] MCH (RBC) [Entitic mass] 31.5 pg Normal 27.0-33.0 [facility] ([place]) Comment on above: Performed By: #### C MP, GFR, CBC, ADIFF, ANEU, MDW, LIP ####[place] [address] MCHC 34.1 G/dL Normal 32.0-36.0 [facility] ([place]) Comment on above: Performed By: #### C MP, GFR, CBC, ADIFF, ANEU, MDW, LIP ####[place] [address] MCV (RBC) [Entitic vol] 92.3 fL Normal 80.0-99.0 [facility] ([place]) Comment on above: Performed By: #### C MP, GFR, CBC, ADIFF, ANEU, MDW, LIP ####[place] [address] Platelet 180 10 3/mcL Normal 150-450 [facility] ([place]) Comment on above: Performed By: #### C MP, GFR, CBC, ADIFF, ANEU, MDW, LIP ####[place] [address] Platelet mean volume (Bld) [Entitic vol] 9.7 fL Normal 6.6-10.5 [facility] [facility] ([place] Comment on above: Performed By: #### C MP, GFR, CBC, ADIFF, PAULO, W, LIP ####[address] [address] RBC 3.47 10 6/mcL Low 4.10-5.30 [facility] ([place]) Comment on above: Performed By: #### C MP, GFR, CBC, ADIFF, ANEU, W, LIP ####[address] [address] WBC 13.8 10 3/mcL High 4.5-10.8 [facility] ([place]) Comment on above: Performed By: #### C MP, GFR, CBC, ADIFF, PAULO, W, LIP ####[address] [address] CMPon 11-14-2022 Albumin Level 3.9 G/dL Normal 3.2-4.8 [facility] ([place]) Comment on above: Performed By: #### C MP, GFR, CBC, ADIFF, ANEU, MDW, LIP ####[place] [address] Albumin/Globulin [Mass ratio] 1.7 {ratio} High 0.9-1.6 [facility] ([place]) Comment on above: Performed By: #### C MP, GFR, CBC, ADIFF, PAULO, MDW, LIP ####[place] [address] ALP [Catalytic activity/Vol] 42 U/L Normal 38-126 [facility] ([place]) Comment on above: Performed By: #### C MP, GFR, CBC, ADIFF, ANEU, W, LIP ####[place] [address] ALT [Catalytic activity/Vol] 13 U/L Normal 10-49 [facility] ([place]) Comment on above: Performed By: #### C MP, GFR, CBC, ADIFF, ANEU, MDW, LIP ####[address] [address] AST [Catalytic activity/Vol] 13 U/L Normal 8-34 [facility] ([place]) Comment on above: Performed By: #### C MP, GFR, CBC, PAULO SANDERS MDW, LIP ####[address] [address] Bili Total 0.40 mg/dL Normal 0.20-1.20 [facility] ([place]) Comment on above: Result Comment: Use of this assay is not recommended for patients undergoing treatment with eltrombopag due to the potential for falsely elevated results. Performed By: #### C MP, GFR, CBC, PAULO SANDERS MDW, LIP ####[place] [address] BUN/Creatinine Ratio 14.6 ratio Normal 10.0-22.0 [facility] ([place]) Comment on above: Performed By: #### C MP, GFR, CBC, PAULO SANDERS MDW, LIP ####[place] [address] Calcium [Mass/Vol] 8.9 mg/dL Normal 8.7-10.4 [facility] ([place]) Comment on above: Performed By: #### C MP, GFR, CBC, PAULO SANDERS MDW, LIP ####[address] [address] Chloride [Moles/Vol] 108 mmol/L Normal 98-110 [facility] ([place]) Comment on above: Performed By: #### C MP, GFR, CBC, PAULO SANDERS MDW, LIP ####[address] [address] CO2 [Moles/Vol] 27 mmol/L Normal 22-32 [facility] ([place]) Comment on above: Performed By: #### C MP, GFR, CBC, PAULO SANDERS MDW, LIP ####[address] [address] Creatinine [Mass/Vol] 0.82 mg/dL Normal 0.50-1.20 [facility] ([place]) Comment on above: Performed By: #### C MP, GFR, CBC, PAULO SANDERS MDW, LIP ####[address] [address] Electrolyte Balance 6.0 mEq/L Normal 4.0-15.0 [facility] ([place]) Comment on above: Performed By: #### C MP, GFR, CBC, TOMMY, LEON BATES, LIP ####[address] [address] Globulin 2.3 G/dL Normal 1.5-3.8 [facility] ([place]) Comment on above: Performed By: #### C MP, GFR, CBC, ADCHASITY, LEON BATES, LIP ####[address] [address] Glucose [Mass/Vol] 52 mg/dL Low 70-110 [facility] ([place]) Comment on above: Performed By: #### C MP, GFR, CBC, ADCHASITY, LEON BATES, LIP ####[place] [id number] Potassium [Moles/Vol] 3.7 mmol/L Normal 3.5-5.0 [facility] ([place]) Comment on above: Performed By: #### C MP, GFR, CBC, TOMMY, LEON BATES, LIP ####[address] [address] Sodium [Moles/Vol] 141 mmol/L Normal 136-145 [facility] ([place]) Comment on above: Performed By: #### C MP, GFR, CBC, TOMMY, LEON BATES, LIP ####[address] [address] Total Protein 6.2 G/dL Normal 5.7-8.2 [facility] ([place]) Comment on above: Result Comment: No te - New Reference Range in effect 19 Performed By: #### C MP, GFR, CBC, ADCHASITY, LEON BATES, LIP ####[address] [address] Urea nitrogen [Mass/Vol] 12.0 mg/dL Normal 8.0-22.0 [facility] ([place]) Comment on above: Performed By: #### C MP, GFR, CBC, ADIFF, ANEU, MDW, LIP ####[place] [id number] [address] [place] [address] CT ABD/PELVIS W/ IV CONTRAST ONLYon 11-14-2022 CT ABD/PELVIS W/ IV CONTRAST ONLY ORIGINAL EXAMINATION: CT OF THE ABDOMEN AND PELVIS WITH CONTRAST 11/14/2022 3:14 pm TECHNIQUE: CT of the abdomen and pelvis was performed with the administration of intravenous contrast. Multiplanar reformatted images are provided for review. Automated exposure control, iterative reconstruction, and/or weight based adjustment of the mA/kV was utilized to reduce the radiation dose to as low as reasonably achievable. COMPARISON: CT abdomen pelvis February 24, 2022 HISTORY: ORDERING SYSTEM PROVIDED HISTORY: Reason for Exam: RT SIDED ABD AND FLANK PAIN X 1 DAY abdominal and flank pain FINDINGS: Lower Chest: No focal consolidation. Organs: The liver, gallbladder, spleen, pancreas adrenal glands and kidneys are unremarkable. No hydronephrosis. GI/Bowel: Small to moderate amount of greater than simple density fluid in the abdomen or pelvis. Small amount of more discrete blood products in the pelvis. No bowel obstruction or pneumoperitoneum. Nondilated appendix. Pelvis: Heterogeneity to the left ovary. Uterus grossly unremarkable. Bladder decompressed. Peritoneum/Retroperitoneum: Nonaneurysmal abdominal aorta. No enlarged lymph nodes. Bones/Soft Tissues: No acute findings. IMPRESSION: Small to moderate amount of blood products in the abdomen pelvis, more discretely in the pelvis. Findings are could reflect sequelae of ovarian cyst rupture/hemorrhage. Interpreted by: Elver Collins Preliminary Report By: Elver Collins Electronically signed By Elver Collins Dictated Date: 11/14/2022 4:36:21 PM Prelim Date: 11/14/2022 4:41:55 PM Sign Date: 11/14/2022 4:41:55 PM Ordering Provider: MARK Bartlett [facility] ([place]) LABORATORYOrdered By: Juan Carlos mcguire on 11-14-2022 Beta HCG ( test) Ql (U) Negative (11/14/22 10:33 AM) [facility] Work Phone: LABORATORYOrdered By: SYSTEM SYSTEM on 11-14-2022 Albumin BCP dye [Mass/Vol] 3.9 G/dL Invalid Interpretation Code 3.2 - 4.8 G/dL AH ADM SS Albumin/Globulin [Mass ratio] 1.7 {ratio} Invalid Interpretation Code 0.9 - 1.6 ratio AH ADM SS ALP [Catalytic activity/Vol] 42 U/L Invalid Interpretation Code 38 - 126 U/L AH ADM SS ALT No additional P-5'-P [Catalytic activity/Vol] 13 U/L Invalid Interpretation Code 10 - 49 U/L AH ADM SS AST [Catalytic activity/Vol] 13 U/L Invalid Interpretation Code 8 - 34 U/L AH ADM SS Basophils (Bld) [#/Vol] 0.1 103/mcL Invalid Interpretation Code 0.0 - 0.3 10^3/mcL AH Workflow SS Basophils/100 WBC (Bld) 0.5 % Invalid Interpretation Code 0.0 - 2.5 % Workflow SS Bilirubin [Mass/Vol] 0.40 mg/dL Invalid Interpretation Code 0.20 - 1.20 mg/dL ADM SS Comment on above: Interpretive Data: U se of this assay is not recommended for patients undergoing treatment with eltrombopag due to the potential for falsely elevated results. Calcium [Mass/Vol] 8.9 mg/dL Invalid Interpretation Code 8.7 - 10.4 mg/dL ADM SS Chloride [Moles/Vol] 108 mmol/L Invalid Interpretation Code 98 - 110 mEq/L ADM SS CO2 [Moles/Vol] 27 mmol/L Invalid Interpretation Code 22 - 32 mEq/L ADM SS Creatinine [Mass/Vol] 0.82 mg/dL Invalid Interpretation Code 0.50 - 1.20 mg/dL ADM SS Electrolyte Balance 6.0 mEq/L Invalid Interpretation Code 4.0 - 15.0 mEq/L ADM SS Eosinophils (Bld) [#/Vol] 0.1 103/mcL Invalid Interpretation Code 0.0 - 0.7 10^3/mcL Workflow SS Eosinophils/100 WBC (Bld) 0.6 % Invalid Interpretation Code 0.0 - 6.0 % Workflow SS Erythrocyte distribution width (RBC) [Ratio] 12.7 % Invalid Interpretation Code 11.5 - 15.5 % Workflow SS GFR/1.73 sq M.predicted among blacks MDRD (S/P/Bld) [Vol rate/Area] ml/min/1.73sqm Invalid Interpretation Code AH ADM SS Comment on above: Interpretive Data: GFR Population mean for , Non- Americans Ages 20-29 = 116 mL/min/1.73 sq.m. Ages 30-39 = 107 mL/min/1.73 sq.m. Ages 40-49 = 99 mL/min/1.73 sq.m. Ages 50-59 = 93 mL/min/1.73 sq.m. Ages 60-69 = 85 mL/min/1.73 sq.m. Ages 70+ = 75 mL/min/1.73 sq.m. Chronic Kidney Disease: Less than 60 mL/min/1.73 square meters End Stage Renal Disease: Less than 15 mL/min/1.73 square meters GFR/1.73 sq M.predicted among non-blacks MDRD (S/P/Bld) [Vol rate/Area] ml/min/1.73sqm Invalid Interpretation Code [facility] Comment on above: Interpretive Data: GFR Population mean for , Non- Americans Ages 20-29 = 116 mL/min/1.73 sq.m. Ages 30-39 = 107 mL/min/1.73 sq.m. Ages 40-49 = 99 mL/min/1.73 sq.m. Ages 50-59 = 93 mL/min/1.73 sq.m. Ages 60-69 = 85 mL/min/1.73 sq.m. Ages 70+ = 75 mL/min/1.73 sq.m. Chronic Kidney Disease: Less than 60 mL/min/1.73 square meters End Stage Renal Disease: Less than 15 mL/min/1.73 square meters Globulin 2.3 G/dL Invalid Interpretation Code 1.5 - 3.8 G/dL ADM Glucose [Mass/Vol] 52 mg/dL Invalid Interpretation Code 70 - 110 mg/dL ADM Hematocrit (Bld) [Volume fraction] 32.1 % Invalid Interpretation Code 34.0 - 46.0 % Workflow SS Hemoglobin (Bld) [Mass/Vol] 10.9 G/dL Invalid Interpretation Code 12.0 - 16.0 G/dL Workflow Lipase [Catalytic activity/Vol] 35 U/L Invalid Interpretation Code 12 - 53 U/L [facility] Comment on above: Interpretive Data: * *Note - New Reference Range in effect 19 Lymphocytes (Bld) [#/Vol] 2.0 103/mcL Invalid Interpretation Code 0.9 - 4.3 10^3/mcL AH Workflow SS Lymphocytes/100 WBC (Bld) 14.6 % Invalid Interpretation Code 20.0 - 40.0 % AH Workflow SS MCH (RBC) [Entitic mass] 31.5 pg Invalid Interpretation Code 27.0 - 33.0 pg AH Workflow SS MCHC 34.1 G/dL Invalid Interpretation Code 32.0 - 36.0 G/dL AH Workflow SS MCV (RBC) [Entitic vol] 92.3 fL Invalid Interpretation Code 80.0 - 99.0 fL AH Workflow SS Monocyte distribution width Auto (Bld) [Entitic vol] 15.71 1 Invalid Interpretation Code 0.00 - 20.00 AH Workflow SS Comment on above: Result Comment: For ED adult patients suspected of sepsis, MDW<=20.0 does not rule out sepsis or risk of sepsis Monocytes (Bld) [#/Vol] 0.7 103/mcL Invalid Interpretation Code 0.1 - 1.4 10^3/mcL AH Workflow SS Monocytes/100 WBC (Bld) 5.1 % Invalid Interpretation Code 2.0 - 13.0 % AH Workflow SS Neutrophils (Bld) [#/Vol] 10.9 103/mcL Invalid Interpretation Code 2.3 - 8.1 10^3/mcL AH Workflow SS Neutrophils/100 WBC (Bld) 79.2 % Invalid Interpretation Code 50.0 - 75.0 % AH Workflow SS Platelet mean volume (Bld) [Entitic vol] 9.7 fL Invalid Interpretation Code 6.6 - 10.5 fL AH Workflow SS Platelets (Bld) [#/Vol] 180 103/mcL Invalid Interpretation Code 150 - 450 10^3/mcL AH Workflow SS Potassium [Moles/Vol] 3.7 mmol/L Invalid Interpretation Code 3.5 - 5.0 mEq/L AH ADM SS Protein [Mass/Vol] 6.2 G/dL Invalid Interpretation Code 5.7 - 8.2 G/dL AH ADM SS Comment on above: Interpretive Data: * *Note - New Reference Range in effect 19 RBC (Bld) [#/Vol] 3.47 106/mcL Invalid Interpretation Code 4.10 - 5.30 10^6/mcL AH Workflow SS Sodium [Moles/Vol] 141 mmol/L Invalid Interpretation Code 136 - 145 mEq/L AH ADM SS Urea nitrogen [Mass/Vol] 12.0 mg/dL Invalid Interpretation Code 8.0 - 22.0 mg/dL AH ADM SS Urea nitrogen/Creatinin e [Mass ratio] 14.6 ratio Invalid Interpretation Code 10.0 - 22.0 ratio AH ADM SS WBC (Bld) [#/Vol] 13.8 103/mcL Invalid Interpretation Code 4.5 - 10.8 10^3/mcL AH Workflow SS LABORATORYOrdered By: Yael Hosue on 11-14-2022 Appearance (U) Cloudy *ABN* (11/14/22 10:20 AM) Invalid Interpretation Code Clear AH Auto Urine SS Bacteria LM.HPF (Urine sed) [#/Area] 2 /[HPF] Invalid Interpretation Code Negative AH Auto Urine SS Bilirubin Ql (U) Negative (11/14/22 10:20 AM) Invalid Interpretation Code Neg-Trace AH Auto Urine SS Color (U) Straw (11/14/22 10:20 AM) Invalid Interpretation Code AH Auto Urine SS Glucose Test strip (U) [Mass/Vol] Negative Invalid Interpretation Code Negative AH Auto Urine SS Hemoglobin Auto test strip (U) [Mass/Vol] Small *ABN* (11/14/22 10:20 AM) Invalid Interpretation Code Neg-Trace AH Auto Urine SS Ketones Ql (U) Negative Invalid Interpretation Code Neg-Trace AH Auto Urine SS UA Glitter cells 50-100 /HPF Invalid Interpretation Code AH Auto Urine SS UA Leuk Est Large *ABN* (11/14/22 10:20 AM) Invalid Interpretation Code Negative AH Auto Urine SS UA Mucous 2+ /HPF Invalid Interpretation Code AH Auto Urine SS UA Nitrite Negative (11/14/22 10:20 AM) Invalid Interpretation Code Negative AH Auto Urine SS UA pH 6.0 (11/14/22 10:20 AM) Invalid Interpretation Code 5.0 - 8.0 AH Auto Urine SS UA Protein Negative Invalid Interpretation Code Negative AH Auto Urine SS UA RBC 0-2 /HPF Invalid Interpretation Code 0-2 AH Auto Urine SS UA Spec Grav 1.010 (11/14/22 10:20 AM) Invalid Interpretation Code 1.006-1.02 9 AH Auto Urine SS UA Specimen Type Not Given (11/14/22 10:20 AM) Invalid Interpretation Code AH Auto Urine SS UA Squam Epithelial 3-5 /HPF Invalid Interpretation Code 0-20 AH Auto Urine SS UA Urobilinogen 0.2 E.U./dL Invalid Interpretation Code 0.2-1.0 AH Auto Urine SS WBC LM.HPF (Urine sed) [#/Area] 25-50 /HPF Invalid Interpretation Code 0-5 AH Auto Urine SS LIPon 11-14-2022 Lipase Level 35 U/L Normal 12-53 [facility] ([place]) Comment on above: Result Comment: No te - New Reference Range in effect 19 Performed By: #### C MP, GFR, CBC, ADIFF, ANEU, MDW, LIP ####[place] [address] UAon 11-14-2022 Color (U) Straw Normal [facility] ([place]) Comment on above: Performed By: #### U A, UAMIC #### [place] [address] Glucose (U) [Mass/Vol] Negative Normal Negative [facility] ([place]) Comment on above: Performed By: #### U A, UAMIC #### [place] [address] Ketones Ql (U) Negative Normal Neg-Trace [facility] ([place]) Comment on above: Performed By: #### U A, UAMIC #### [place] [address] UA Appear Cloudy Abnormal Clear [facility] ([place] Comment on above: Performed By: #### U A, UAMIC #### [place] [address] UA Blood Small Abnormal Neg-Trace [facility] ([place]) Comment on above: Performed By: #### U A, UAMIC #### [address] [address] UA Leuk Est Large Abnormal Negative [facility] ([place]) Comment on above: Performed By: #### U A, UAMIC #### [place] [id number] UA Nitrite Negative Normal Negative [facility] ([place] Comment on above: Performed By: #### U A, UAMIC #### [place] [address] UA pH 6.0 Normal 5.0 - 8.0 [facility] ([place] Comment on above: Performed By: #### U A, UAMIC #### [place] [address] UA Protein Negative Normal Negative [facility] ([place] Comment on above: Performed By: #### U A, UAMIC #### [place] [address] UA Spec Grav 1.010 Normal 1.006-1.02 9 [facility] ([place] Comment on above: Performed By: #### U A, UAMIC #### [place] [address] UA Specimen Type Not Given Normal [facility] ([place] Comment on above: Performed By: #### U A, UAMIC #### [place] [address] UA Urobilinogen 0.2 E.U./dL Normal 0.2-1.0 [facility] ([place] Comment on above: Performed By: #### U A, UAMIC #### [place] [address] Urobilinogen (U) [Mass/Vol] Negative Normal Neg-Trace [facility] ([place] Comment on above: Performed By: #### U A, UAMIC #### [place] [address] UAMICon 11-14-2022 UA Bacteria 2+ /hpf Abnormal Negative [facility] ([place] Comment on above: Performed By: #### U A, UAMIC #### [place] [address] UA Glitter cells 50-100 Abnormal [facility] ([place]) Comment on above: Performed By: #### U A, UAMIC #### [place] [address] UA Mucous 2+ /hpf Normal [facility] ([place] Comment on above: Performed By: #### U A, UAMIC #### [facility] [address] [place] [address] UA RBC 0-2 Normal 0-2 [facility] ([place] Comment on above: Performed By: #### U A, UAMIC #### [facility] [address] [place], [place] [id number] UA Squam Epithelial 3-5 Normal 0-20 [facility] ([place]) Comment on above: Performed By: #### U A, UAMIC #### [facility] [address] [place], [place] [id number] UA WBC 25-50 Abnormal 0-5 [facility] ([place] Comment on above: Performed By: #### U A, UAMIC #### [facility] [address] [place] [address] CNOVon 04-16-2022 CNOV Office Visit (U[facility]MAS ) RONNA AGUAYO ([id number]) 1995 F Date Time Provider [facility] During your visit today, we recorded the following information about you: Temperature Pulse Respiration Blood pressure 98 degrees 80/minute 16/minute 121/67 Weight Last Period 51.7 kg 04/16/22 Nishi Munoz DO 04/16/2022 11:57 AM Signed Ronna Dunlap Olivier is a 26 year old FEMALE who presents with Sinusitis (Left side tooth pain head aches--1 week) HPI History reviewed. No pertinent past medical history. ACTIVE PROBLEM LIST Intractable Epilepsy (Hcc) Seizure Disorder (Hcc) Current Outpatient Medications Medication Sig Dispense Refill ARIPiprazole (ABILIFY) 10 mg tablet buPROPion XL (WELLBUTRIN XL) 150 mg 24 hr tablet ondansetron orally disintegrating (ZOFRAN ODT) 4 mg disintegrating tablet Take 1 tablet by mouth every 6 hours as needed for Nausea/Vomiting. 12 tablet 0 amoxicillin (AMOXIL) 875 mg tablet Take 1 tablet by mouth twice daily for 10 days. 20 tablet 0 meloxicam (MOBIC) 15 mg tablet Take 1 tablet by mouth once daily. 30 tablet 0 levETIRAcetam (KEPPRA) 250 mg tablet Take 1 tablet by mouth twice daily. (Patient not taking: Reported on 04/16/2022) 60 tablet 1 pimecrolimus(ELIDEL 1 % TOPICAL CREAM) (Patient not taking: Reported on 04/16/2022) 0 montelukast sodium(SINGULAIR 5 MG CHEWABLE TAB) Take one(1) tablet daily at bedtime. (Patient not taking: Reported on 04/16/2022) 0 No current facility-administered medications for this visit. Social History Tobacco Use Smoking status: Every Day Packs/day: 0.25 Years: 1.00 Pack years: 0.25 Types: Cigarettes Smokeless tobacco: Never Substance Use Topics Alcohol use: No Drug use: No Alcohol Use: No Tobacco Use: 0.25 packs/day, for 1 years. Types: Cigarettes FAMILY HISTORY Adopted: Yes ROS BP 121/67 Pulse 80 Temp 98 Resp 16 Wt 114 lb (51.7kg) SpO2 100% LMP 04/16/2022 Physical Exam Vitals and nursing note reviewed. HENT: Mouth/Throat: Comments: The patient has fractured and carious teeth #1314 and #18. These seem to be giving her the pain if you tap on these teeth it radiates up into the sinuses the sinuses themselves are clear no evidence of any infection. Teeth are in moderate repair. The patient did call a dentist but that it was 2 months until she can get and that the reason she came here. She also missed her shift at [employer] because the heat and [employer] was making her teeth hurt worse so she wants a slip to be off today and tomorrow from [employer]. And she was given that. Patient will be placed on amoxicillin she is to finish the course she was also given meloxicam once a day for 30 days to help with the discomfort and she is to persist in trying to get into a dentist I explained to her that that is the ultimate treatment what were doing here is just a temporary fix she states she understands and is this dictation. ASSESSMENT/PLAN: 1. Odontalgia - ICD9: 525.9, ICD10: K08.89 - AMOXICILLIN 875 MG TABLET - MELOXICAM 15 MG TABLET Nishi Munoz DO 04/16/2022 12:10 PM Signed Addended by: NISHI MUNOZ on: 04/16/2022 12:10 PM Modules accepted: Orders Referring Provider: SELF [[id number]] Allergies As of Date: 04/16/2022 Noted Allergy Reaction PEANUTS 12/14/2016 7 - Swelling Date Reviewed: 04/16/2022 Reviewed by: Nishi Munoz DO - Fully Assessed Reason for Visit: Sinusitis [127] Cmt: Left side tooth pain head aches--1 week Primary Visit Diagnosis:Odontalgia [K08.89] Order(s):amoxicillin (AMOXIL) 875 mg tabletTake 1 tablet by mouth twice daily for 10 days.Disp: 20 tabletRfl: 0 meloxicam (MOBIC) 15 mg tabletTake 1 tablet by mouth once daily.Disp: 30 tabletRfl: 0 Prescriptions as of 04/16/2022 - ARIPiprazole (ABILIFY) 10 mg tablet - buPROPion XL (WELLBUTRIN XL) 150 mg 24 hr tablet - amoxicillin (AMOXIL) 875 mg tablet Take 1 tablet by mouth twice daily for 10 days. - meloxicam (MOBIC) 15 mg tablet Take 1 tablet by mouth once daily. - ondansetron orally disintegrating (ZOFRAN ODT) 4 mg disintegrating tablet Take 1 tablet by mouth every 6 hours as needed for Nausea/Vomiting. - levETIRAcetam (KEPPRA) 250 mg tablet Take 1 tablet by mouth twice daily. - pimecrolimus(ELIDEL 1 % TOPICAL CREAM) - montelukast sodium(SINGULAIR 5 MG CHEWABLE TAB) Take one(1) tablet daily at bedtime. Problem List As Of Date 04/16/2022 Noted Resolved Intractable epilepsy (HCC) [G40.919] 04/25/2016 Seizure disorder (HCC) [G40.909] 04/25/2016 Prescriptions ordered this encounter Disp Refills Start End AMOXICILLIN 875 MG TABLET 20 t* 0 04/16/2022 04/16/2022 Route: ORAL Sig: Take 1 tablet by mouth twice daily for 10 days. MELOXICAM 15 MG TABLET 30 t* 0 04/16/2022 04/16/2022 Route: ORAL Sig: Take 1 tablet by mouth once daily. AMOXICILLIN 875 MG TABLET (more content not included)... Normal [facility] LABORATORYOrdered By: Mahsa Figueroa on 02-24-2022 Beta HCG ( test) Ql (U) Negative (02/24/22 12:24 PM) [facility] Work Phone: LABORATORYOrdered By: SYSTEM SYSTEM on 02-24-2022 Albumin BCP dye [Mass/Vol] 4.4 G/dL Invalid Interpretation Code 3.2 - 4.8 G/dL ADM SS Albumin/Globulin [Mass ratio] 1.9 {ratio} Invalid Interpretation Code 0.9 - 1.6 ratio ADM SS ALP [Catalytic activity/Vol] 58 U/L Invalid Interpretation Code 38 - 126 U/L ADM SS ALT No additional P-5'-P [Catalytic activity/Vol] 19 U/L Invalid Interpretation Code 10 - 49 U/L ADM SS AST [Catalytic activity/Vol] 15 U/L Invalid Interpretation Code 8 - 34 U/L ADM SS Basophils (Bld) [#/Vol] 0.0 103/mcL Invalid Interpretation Code 0.0 - 0.3 10^3/mcL Workflow SS Basophils/100 WBC (Bld) 0.1 % Invalid Interpretation Code 0.0 - 2.5 % Workflow SS Bilirubin [Mass/Vol] 1.00 mg/dL Invalid Interpretation Code 0.20 - 1.20 mg/dL ADM SS Calcium [Mass/Vol] 9.6 mg/dL Invalid Interpretation Code 8.7 - 10.4 mg/dL ADM SS Chloride [Moles/Vol] 107 mmol/L Invalid Interpretation Code 98 - 110 mEq/L ADM SS CO2 [Moles/Vol] 29 mmol/L Invalid Interpretation Code 22 - 32 mEq/L ADM SS Creatinine [Mass/Vol] 0.89 mg/dL Invalid Interpretation Code 0.50 - 1.20 mg/dL ADM SS Electrolyte Balance 4.0 mEq/L Invalid Interpretation Code 4.0 - 15.0 mEq/L ADM SS Eosinophils (Bld) [#/Vol] 0.0 103/mcL Invalid Interpretation Code 0.0 - 0.7 10^3/mcL AH Workflow SS Eosinophils/100 WBC (Bld) 0.4 % Invalid Interpretation Code 0.0 - 6.0 % AH Workflow SS Erythrocyte distribution width (RBC) [Ratio] 12.9 % Invalid Interpretation Code 11.5 - 15.5 % AH Workflow SS GFR/1.73 sq M.predicted among blacks MDRD (S/P/Bld) [Vol rate/Area] ml/min/1.73sqm Invalid Interpretation Code AH ADM SS GFR/1.73 sq M.predicted among non-blacks MDRD (S/P/Bld) [Vol rate/Area] ml/min/1.73sqm Invalid Interpretation Code AH ADM SS Globulin 2.3 G/dL Invalid Interpretation Code 1.5 - 3.8 G/dL ADM SS Glucose [Mass/Vol] 85 mg/dL Invalid Interpretation Code 70 - 110 mg/dL ADM SS Hematocrit (Bld) [Volume fraction] 40.8 % Invalid Interpretation Code 34.0 - 46.0 % AH Workflow SS Hemoglobin (Bld) [Mass/Vol] 13.7 G/dL Invalid Interpretation Code 12.0 - 16.0 G/dL AH Workflow SS Lipase [Catalytic activity/Vol] 29 U/L Invalid Interpretation Code 12 - 53 U/L ADM SS Lymphocytes (Bld) [#/Vol] 0.9 103/mcL Invalid Interpretation Code 0.9 - 4.3 10^3/mcL AH Workflow SS Lymphocytes/100 WBC (Bld) 7.2 % Invalid Interpretation Code 20.0 - 40.0 % AH Workflow SS MCH (RBC) [Entitic mass] 30.6 pg Invalid Interpretation Code 27.0 - 33.0 pg AH Workflow SS MCHC 33.6 G/dL Invalid Interpretation Code 32.0 - 36.0 G/dL AH Workflow SS MCV (RBC) [Entitic vol] 91.3 fL Invalid Interpretation Code 80.0 - 99.0 fL AH Workflow SS Monocyte distribution width Auto (Bld) [Entitic vol] 18.18 Invalid Interpretation Code 0.00 - 20.00 AH Workflow SS Comment on above: Result Comment: For ED adult patients suspected of sepsis, MDW<=20.0 does not rule out sepsis or risk of sepsis Monocytes (Bld) [#/Vol] 0.6 103/mcL Invalid Interpretation Code 0.1 - 1.4 10^3/mcL AH Workflow SS Monocytes/100 WBC (Bld) 4.4 % Invalid Interpretation Code 2.0 - 13.0 % AH Workflow SS Neutrophils (Bld) [#/Vol] 11.6 103/mcL Invalid Interpretation Code 2.3 - 8.1 10^3/mcL AH Workflow SS Neutrophils/100 WBC (Bld) 87.9 % Invalid Interpretation Code 50.0 - 75.0 % AH Workflow SS Platelet mean volume (Bld) [Entitic vol] 9.5 fL Invalid Interpretation Code 6.6 - 10.5 fL AH Workflow SS Platelets (Bld) [#/Vol] 153 103/mcL Invalid Interpretation Code 150 - 450 10^3/mcL AH Workflow SS Potassium [Moles/Vol] 4.3 mmol/L Invalid Interpretation Code 3.5 - 5.0 mEq/L AH ADM SS Protein [Mass/Vol] 6.7 G/dL Invalid Interpretation Code 5.7 - 8.2 G/dL AH ADM SS RBC (Bld) [#/Vol] 4.47 106/mcL Invalid Interpretation Code 4.10 - 5.30 10^6/mcL AH Workflow SS Sodium [Moles/Vol] 140 mmol/L Invalid Interpretation Code 136 - 145 mEq/L AH ADM SS Urea nitrogen [Mass/Vol] 16.0 mg/dL Invalid Interpretation Code 8.0 - 22.0 mg/dL AH ADM SS Urea nitrogen/Creatinin e [Mass ratio] 18.0 ratio Invalid Interpretation Code 10.0 - 22.0 ratio AH ADM SS WBC (Bld) [#/Vol] 13.2 103/mcL Invalid Interpretation Code 4.5 - 10.8 10^3/mcL AH Workflow SS LABORATORYOrdered By: Yael House on 02-24-2022 Appearance (U) Cloudy *ABN* (02/24/22 11:53 AM) Invalid Interpretation Code Clear AH Auto Urine SS Bacteria LM.HPF (Urine sed) [#/Area] 1 /[HPF] Invalid Interpretation Code Negative/H PF AH Auto Urine SS Bilirubin Ql (U) Small *ABN* (02/24/22 11:53 AM) Invalid Interpretation Code Neg-Trace AH Auto Urine SS Color (U) Dark Yellow *NA* (02/24/22 11:53 AM) Invalid Interpretation Code AH Auto Urine SS Glucose Test strip (U) [Mass/Vol] Negative Invalid Interpretation Code Negativemg /dL AH Auto Urine SS Hemoglobin Auto test strip (U) [Mass/Vol] Negative (02/24/22 11:53 AM) Invalid Interpretation Code Neg-Trace AH Auto Urine SS Ketones Ql (U) Trace mg/dL Invalid Interpretation Code Neg-Tracem g/dL AH Auto Urine SS UA Leuk Est Moderate *ABN* (02/24/22 11:53 AM) Invalid Interpretation Code Negative AH Auto Urine SS UA Mucous 2+ /HPF Invalid Interpretation Code Auto Urine SS UA Nitrite Negative (02/24/22 11:53 AM) Invalid Interpretation Code Negative Auto Urine SS UA pH 6.5 (02/24/22 11:53 AM) Invalid Interpretation Code 5.0 - 8.0 AH Auto Urine SS UA Protein 100 mg/dL Invalid Interpretation Code Negativemg /dL Auto Urine SS UA RBC 0-2 /HPF Invalid Interpretation Code 0-2/HPF Auto Urine SS UA Spec Grav >=1.030 *ABN* (02/24/22 11:53 AM) Invalid Interpretation Code 1.006-1.02 9 Auto Urine SS UA Specimen Type Clean Catch (02/24/22 11:53 AM) Invalid Interpretation Code Auto Urine SS UA Squam Epithelial 10-20 /HPF Invalid Interpretation Code 0-20/HPF Auto Urine SS UA Urobilinogen 1.0 E.U./dL Invalid Interpretation Code 0.2-1.0E.U ./dL Auto Urine SS WBC LM.HPF (Urine sed) [#/Area] 10-20 /HPF Invalid Interpretation Code 0-5/HPF Auto Urine SS LABORATORYOrdered By: Renato Bradshaw on 11-19-2021 Appearance (U) Clear (11/19/21 11:39 AM) [facility] Work Phone: Beta HCG ( test) Ql (U) Negative (11/19/21 11:39 AM) [facility] Work Phone: Bilirubin Urine Dipstick Negative (11/19/21 11:39 AM) [facility] Work Phone: Blood Urine Dipstick Negative (11/19/21 11:39 AM) [facility] Work Phone: Glucose Urine Dipstick Negative (10/8/22 11:39 AM) [facility] Work Phone: Ketones Urine Dipstick Negative (11/19/21 11:39 AM) [facility] Work Phone: Leukocytes Urine Dipstick Negative (11/19/21 11:39 AM) [facility] Work Phone: Nitrite Urine Dipstick Negative (11/19/21 11:39 AM) [facility] Work Phone: pH Urine Dipstick 6 (11/19/21 11:39 AM) [facility] Work Phone: Protein Urine Dipstick Negative (11/19/21 11:39 AM) [facility] Work Phone: Specific [place] Urine Dipstick 1.010 (11/19/21 11:39 AM) [facility] Work Phone: Urine Color Urine Dipstick Yellow (11/19/21 11:39 AM) [facility] Work Phone: Urobilinogen Urine Dipstick 0.2 mg/dl (11/19/21 11:39 AM) [facility] Work Phone: LABORATORYOrdered By: SYSTEM SYSTEM on 11-19-2021 Albumin BCP dye [Mass/Vol] 4.5 G/dL Invalid Interpretation Code 3.2 - 4.8 G/dL ADM SS Albumin/Globulin [Mass ratio] 1.6 {ratio} Invalid Interpretation Code 0.9 - 1.6 ratio ADM SS ALP [Catalytic activity/Vol] 67 U/L Invalid Interpretation Code 38 - 126 U/L ADM SS ALT No additional P-5'-P [Catalytic activity/Vol] 19 U/L Invalid Interpretation Code 10 - 49 U/L ADM SS AST [Catalytic activity/Vol] 14 U/L Invalid Interpretation Code 8 - 34 U/L ADM SS Basophils (Bld) [#/Vol] 0.0 103/mcL Invalid Interpretation Code 0.0 - 0.3 10^3/mcL Workflow SS Basophils/100 WBC (Bld) 0.5 % Invalid Interpretation Code 0.0 - 2.5 % Workflow SS Bilirubin [Mass/Vol] 0.50 mg/dL Invalid Interpretation Code 0.20 - 1.20 mg/dL ADM SS Calcium [Mass/Vol] 9.9 mg/dL Invalid Interpretation Code 8.7 - 10.4 mg/dL ADM SS Chloride [Moles/Vol] 106 mmol/L Invalid Interpretation Code 98 - 110 mEq/L ADM SS CO2 [Moles/Vol] 32 mmol/L Invalid Interpretation Code 22 - 32 mEq/L ADM SS Creatinine [Mass/Vol] 0.78 mg/dL Invalid Interpretation Code 0.50 - 1.20 mg/dL ADM SS Electrolyte Balance 3.0 mEq/L Invalid Interpretation Code 4.0 - 15.0 mEq/L ADM SS Eosinophils (Bld) [#/Vol] 0.1 103/mcL Invalid Interpretation Code 0.0 - 0.7 10^3/mcL AH Workflow SS Eosinophils/100 WBC (Bld) 2.1 % Invalid Interpretation Code 0.0 - 6.0 % Workflow SS Erythrocyte distribution width (RBC) [Ratio] 12.6 % Invalid Interpretation Code 11.5 - 15.5 % Workflow SS GFR/1.73 sq M.predicted among blacks MDRD (S/P/Bld) [Vol rate/Area] ml/min/1.73sqm Invalid Interpretation Code ADM SS GFR/1.73 sq M.predicted among non-blacks MDRD (S/P/Bld) [Vol rate/Area] ml/min/1.73sqm Invalid Interpretation Code ADM SS Globulin 2.9 G/dL Invalid Interpretation Code 1.5 - 3.8 G/dL ADM SS Glucose [Mass/Vol] 49 mg/dL Invalid Interpretation Code 70 - 110 mg/dL ADM SS Comment on above: Result Comment: read back by Henrietta Stewart RN Hematocrit (Bld) [Volume fraction] 43.3 % Invalid Interpretation Code 34.0 - 46.0 % Workflow SS Hemoglobin (Bld) [Mass/Vol] 14.8 G/dL Invalid Interpretation Code 12.0 - 16.0 G/dL Workflow SS Lipase [Catalytic activity/Vol] 46 U/L Invalid Interpretation Code 12 - 53 U/L ADM SS Lymphocytes (Bld) [#/Vol] 1.8 103/mcL Invalid Interpretation Code 0.9 - 4.3 10^3/mcL AH Workflow SS Lymphocytes/100 WBC (Bld) 25.8 % Invalid Interpretation Code 20.0 - 40.0 % AH Workflow SS MCH (RBC) [Entitic mass] 31.3 pg Invalid Interpretation Code 27.0 - 33.0 pg AH Workflow SS MCHC 34.2 G/dL Invalid Interpretation Code 32.0 - 36.0 G/dL AH Workflow SS MCV (RBC) [Entitic vol] 91.5 fL Invalid Interpretation Code 80.0 - 99.0 fL AH Workflow SS Monocyte distribution width Auto (Bld) [Entitic vol] 14.57 Invalid Interpretation Code 0.00 - 20.00 AH Workflow SS Comment on above: Result Comment: For ED adult patients suspected of sepsis, MDW<=20.0 does not rule out sepsis or risk of sepsis Monocytes (Bld) [#/Vol] 0.4 103/mcL Invalid Interpretation Code 0.1 - 1.4 10^3/mcL AH Workflow SS Monocytes/100 WBC (Bld) 5.9 % Invalid Interpretation Code 2.0 - 13.0 % AH Workflow SS Neutrophils (Bld) [#/Vol] 4.5 103/mcL Invalid Interpretation Code 2.3 - 8.1 10^3/mcL AH Workflow SS Neutrophils/100 WBC (Bld) 65.7 % Invalid Interpretation Code 50.0 - 75.0 % AH Workflow SS Platelet mean volume (Bld) [Entitic vol] 9.3 fL Invalid Interpretation Code 6.6 - 10.5 fL AH Workflow SS Platelets (Bld) [#/Vol] 215 103/mcL Invalid Interpretation Code 150 - 450 10^3/mcL AH Workflow SS Potassium [Moles/Vol] 3.9 mmol/L Invalid Interpretation Code 3.5 - 5.0 mEq/L AH ADM SS Protein [Mass/Vol] 7.4 G/dL Invalid Interpretation Code 5.7 - 8.2 G/dL AH ADM SS RBC (Bld) [#/Vol] 4.74 106/mcL Invalid Interpretation Code 4.10 - 5.30 10^6/mcL AH Workflow SS Sodium [Moles/Vol] 141 mmol/L Invalid Interpretation Code 136 - 145 mEq/L ADM SS Urea nitrogen [Mass/Vol] 14.0 mg/dL Invalid Interpretation Code 8.0 - 22.0 mg/dL AH ADM SS Urea nitrogen/Creatinin e [Mass ratio] 17.9 ratio Invalid Interpretation Code 10.0 - 22.0 ratio AH ADM SS WBC (Bld) [#/Vol] 6.9 103/mcL Invalid Interpretation Code 4.5 - 10.8 10^3/mcL AH Workflow SS ED NOTEon 2021 ED NOTE HNO ID: [id number] Author: Zainab Veloz RN Service: ASSESSMENT Author Type: Registered Nurse Type: ED Notes Filed: 2021 12:20 AM Note Text: Pt presents to the ER for c/o rectal bleeding episode x1 today during BM with a hx of hemorrhoids during . Pt states pain in rectum as well. No other c/o no acute distress. [facility] ED PROV NOTEon 2021 ED PROV NOTE HNO ID: [id number] Author: Charbel Vazquez PA-C Service: Emergency Medicine Author Type: Physician [employer] Technical Officer Type: ED Provider Notes Filed: 10/01/2021 11:54 PM Note Text: Attestation signed by Denisha Kumar MD at 2021 12:18 AM Attending Note: I Confirm that I have reviewed the mid-level provider's documentation and agree with the evaluation, plan of care, and disposition. Signature: Denisha Kumar MD Date: 2021 Time: 12:18 AM ED Provider Note Patient Name: Ronna Aguayo : 1995 SERVICE DATE: 10/01/21 History Patient presents with: Rectal Bleeding: PT PRESENTS TO ED WITH C/O X1 EPISODE OF BLOODY STOOL TODAY. PT STATES IT WAS A DIARRHEA STOOL WITH MIX OF BRIGHT AND RED BLOOD. C/O 6/10 RECTAL PAIN AT PRESENT TIME. HX HEMMRHOIDS. NO OTHER COMPLAINTS. DENIES N/V. DENIES URINARY SYMPTOMS. Patient comes in for evaluation of rectal bleeding. She has been constipated recently. She had problems with hemorrhoids during . She started noticing bleeding today after she took milk of magnesia. She is noticing some burning focal to the rectal area. No abdominal pain, no other complaints No past medical history on file. PAST SURGICAL HISTORY Procedure Laterality Date NONE FAMILY HISTORY Adopted: Yes Social History Tobacco Use Smoking status: Every Day Packs/day: 0.25 Years: 1.00 Pack years: 0.25 Types: Cigarettes Smokeless tobacco: Never Substance and Sexual Activity Alcohol use: No Drug use: No Sexual activity: Not on file ALLERGIES Allergen Reactions Peanuts Swelling Review of Systems Constitutional: Negative. HENT: Negative. Eyes: Negative. Respiratory: Negative. Cardiovascular: Negative. Gastrointestinal: Positive for anal bleeding. Endocrine: Negative. Genitourinary: Negative. Musculoskeletal: Negative. Skin: Negative. Allergic/Immunologic: Negative. Neurological: Negative. Hematological: Negative. Psychiatric/Behavioral: Negative. All other systems reviewed and are negative. Physical Exam Vitals [10/01/21 1805] BP Pulse Temp Temp src Resp SpO2 Weight Height 128/68 70 36.9 ?C (98.5 ?F) Oral 16 99 % 54.4 kg (120 lb) 1.575 m (5' 2) Physical Exam Vitals and nursing note reviewed. Constitutional: General: She is not in acute distress. Appearance: Normal appearance. She is normal weight. She is not ill-appearing or toxic-appearing. HENT: Head: Normocephalic and atraumatic. Right Ear: Tympanic membrane, ear canal and external ear normal. Left Ear: Tympanic membrane, ear canal and external ear normal. Nose: Nose normal. Mouth/Throat: Mouth: Mucous membranes are moist. Pharynx: Oropharynx is clear. Eyes: Extraocular Movements: Extraocular movements intact. Conjunctiva/sclera: Conjunctivae normal. Pupils: Pupils are equal, round, and reactive to light. Cardiovascular: Rate and Rhythm: Normal rate and regular rhythm. Pulses: Normal pulses. Heart sounds: Normal heart sounds. Pulmonary: Effort: Pulmonary effort is normal. Breath sounds: Normal breath sounds. Abdominal: General: Abdomen is flat. Bowel sounds are normal. Palpations: There is no mass. Tenderness: There is no abdominal tenderness. There is no guarding. Genitourinary: Comments: Rectal exam with nursing staff present identifies a small fissure at the coccygeal region. No active bleeding, no evidence any hemorrhoid at this time Musculoskeletal: General: Normal range of motion. Cervical back: Normal range of motion. Skin: General: Skin is warm and dry. Neurological: General: No focal deficit present. Mental Status: She is alert and oriented to person, place, and time. Psychiatric: Mood and Affect: Mood normal. Behavior: Behavior normal. Diagnostic Testing ED Labs Ordered and Reviewed - No data to display Procedures ED Course / Clinical Impression Clinical Impressions as of 10/01/21 2354 Rectal fissure MDM / Disposition / Plan Patient comes in for evaluation of rectal bleeding. She has been constipated recently. She had problems with hemorrhoids during . She started noticing bleeding today after she took milk of magnesia. She is noticing some burning focal to the rectal area. No abdominal pain, no other complaints Exam as described above with nursing staff present. Patient is comfortable doing sitz bath's. Should be discharged to also use Metamucil Disposition The patient was discharged. Counseled patient regarding suspected diagnosis. As well as the need for follow-up. Discharged home with verbal and written instructions. They were instructed to return as needed for persistent or worsening symptoms or any new concerns. Condition at disposition is stable. SIGNATURE: FILIBERTO Mueller (more content not included)... Normal [facility] LABORATORYOrdered By: Yolanda Rich on 09-02-2021 Beta HCG ( test) Ql (U) Negative (09/02/21 11:49 AM) [facility] Work Phone: LABORATORYOrdered By: Yael House on 09-02-2021 Appearance (U) Clear (09/02/21 11:43 AM) Invalid Interpretation Code Clear AH Auto Urine SS Bilirubin Ql (U) Negative (09/02/21 11:43 AM) Invalid Interpretation Code Neg-Trace AH Auto Urine SS Color (U) Yellow (09/02/21 11:43 AM) Invalid Interpretation Code AH Auto Urine SS Glucose Test strip (U) [Mass/Vol] Negative Invalid Interpretation Code Negativemg /dL AH Auto Urine SS Hemoglobin Auto test strip (U) [Mass/Vol] Negative (09/02/21 11:43 AM) Invalid Interpretation Code Neg-Trace AH Auto Urine SS Ketones Ql (U) Negative Invalid Interpretation Code Neg-Tracem g/dL AH Auto Urine SS UA Leuk Est Negative (09/02/21 11:43 AM) Invalid Interpretation Code Negative AH Auto Urine SS UA Nitrite Negative (09/02/21 11:43 AM) Invalid Interpretation Code Negative AH Auto Urine SS UA pH 6.5 (09/02/21 11:43 AM) Invalid Interpretation Code 5.0 - 8.0 AH Auto Urine SS UA Protein Negative Invalid Interpretation Code Negativemg /dL AH Auto Urine SS UA Spec Grav 1.015 (09/02/21 11:43 AM) Invalid Interpretation Code 1.006-1.02 9 Auto Urine SS UA Specimen Type Clean Catch (09/02/21 11:43 AM) Invalid Interpretation Code Auto Urine SS UA Urobilinogen 0.2 E.U./dL Invalid Interpretation Code 0.2-1.0E.U ./dL Auto Urine SS LABORATORYOrdered By: SYSTEM SYSTEM on 09-02-2021 Albumin BCP dye [Mass/Vol] 4.1 G/dL Invalid Interpretation Code 3.2 - 4.8 G/dL ADM SS Albumin/Globulin [Mass ratio] 1.6 {ratio} Invalid Interpretation Code 0.9 - 1.6 ratio ADM SS ALP [Catalytic activity/Vol] 71 U/L Invalid Interpretation Code 38 - 126 U/L ADM SS ALT No additional P-5'-P [Catalytic activity/Vol] 25 U/L Invalid Interpretation Code 10 - 49 U/L AH ADM SS AST [Catalytic activity/Vol] 20 U/L Invalid Interpretation Code 8 - 34 U/L AH ADM SS Basophils (Bld) [#/Vol] 0.0 103/mcL Invalid Interpretation Code 0.0 - 0.3 10^3/mcL Workflow SS Basophils/100 WBC (Bld) 0.3 % Invalid Interpretation Code 0.0 - 2.5 % Workflow SS Bilirubin [Mass/Vol] 0.50 mg/dL Invalid Interpretation Code 0.20 - 1.20 mg/dL AH ADM SS Calcium [Mass/Vol] 9.7 mg/dL Invalid Interpretation Code 8.7 - 10.4 mg/dL ADM SS Chloride [Moles/Vol] 110 mmol/L Invalid Interpretation Code 98 - 110 mEq/L ADM SS CO2 [Moles/Vol] 27 mmol/L Invalid Interpretation Code 22 - 32 mEq/L ADM SS Creatinine [Mass/Vol] 0.69 mg/dL Invalid Interpretation Code 0.50 - 1.20 mg/dL ADM SS Electrolyte Balance 8.0 mEq/L Invalid Interpretation Code 4.0 - 15.0 mEq/L ADM SS Eosinophils (Bld) [#/Vol] 0.0 103/mcL Invalid Interpretation Code 0.0 - 0.7 10^3/mcL Workflow SS Eosinophils/100 WBC (Bld) 0.1 % Invalid Interpretation Code 0.0 - 6.0 % Workflow SS Erythrocyte distribution width (RBC) [Ratio] 12.7 % Invalid Interpretation Code 11.5 - 15.5 % Workflow SS GFR/1.73 sq M.predicted among blacks MDRD (S/P/Bld) [Vol rate/Area] ml/min/1.73sqm Invalid Interpretation Code ADM SS GFR/1.73 sq M.predicted among non-blacks MDRD (S/P/Bld) [Vol rate/Area] ml/min/1.73sqm Invalid Interpretation Code ADM SS Globulin 2.5 G/dL Invalid Interpretation Code 1.5 - 3.8 G/dL ADM SS Glucose [Mass/Vol] 124 mg/dL Invalid Interpretation Code 70 - 110 mg/dL ADM SS Hematocrit (Bld) [Volume fraction] 38.8 % Invalid Interpretation Code 34.0 - 46.0 % Workflow SS Hemoglobin (Bld) [Mass/Vol] 12.8 G/dL Invalid Interpretation Code 12.0 - 16.0 G/dL Workflow SS Lipase [Catalytic activity/Vol] 49 U/L Invalid Interpretation Code 12 - 53 U/L ADM SS Lymphocytes (Bld) [#/Vol] 0.9 103/mcL Invalid Interpretation Code 0.9 - 4.3 10^3/mcL Workflow SS Lymphocytes/100 WBC (Bld) 17.7 % Invalid Interpretation Code 20.0 - 40.0 % Workflow SS MCH (RBC) [Entitic mass] 30.5 pg Invalid Interpretation Code 27.0 - 33.0 pg AH Workflow SS MCHC 33.1 G/dL Invalid Interpretation Code 32.0 - 36.0 G/dL AH Workflow SS MCV (RBC) [Entitic vol] 92.3 fL Invalid Interpretation Code 80.0 - 99.0 fL AH Workflow SS Monocyte distribution width Auto (Bld) [Entitic vol] 17.97 Invalid Interpretation Code 0.00 - 20.00 AH Workflow SS Comment on above: Result Comment: For ED adult patients suspected of sepsis, MDW<=20.0 does not rule out sepsis or risk of sepsis Monocytes (Bld) [#/Vol] 0.2 103/mcL Invalid Interpretation Code 0.1 - 1.4 10^3/mcL AH Workflow SS Monocytes/100 WBC (Bld) 4.6 % Invalid Interpretation Code 2.0 - 13.0 % AH Workflow SS Neutrophils (Bld) [#/Vol] 3.9 103/mcL Invalid Interpretation Code 2.3 - 8.1 10^3/mcL AH Workflow SS Neutrophils/100 WBC (Bld) 77.3 % Invalid Interpretation Code 50.0 - 75.0 % AH Workflow SS Platelet mean volume (Bld) [Entitic vol] 9.2 fL Invalid Interpretation Code 6.6 - 10.5 fL AH Workflow SS Platelets (Bld) [#/Vol] 172 103/mcL Invalid Interpretation Code 150 - 450 10^3/mcL AH Workflow SS Potassium [Moles/Vol] 4.1 mmol/L Invalid Interpretation Code 3.5 - 5.0 mEq/L AH ADM SS Protein [Mass/Vol] 6.6 G/dL Invalid Interpretation Code 5.7 - 8.2 G/dL AH ADM SS RBC (Bld) [#/Vol] 4.20 106/mcL Invalid Interpretation Code 4.10 - 5.30 10^6/mcL AH Workflow SS Sodium [Moles/Vol] 145 mmol/L Invalid Interpretation Code 136 - 145 mEq/L AH ADM SS Urea nitrogen [Mass/Vol] 10.0 mg/dL Invalid Interpretation Code 8.0 - 22.0 mg/dL AH ADM SS Urea nitrogen/Creatinin e [Mass ratio] 14.5 ratio Invalid Interpretation Code 10.0 - 22.0 ratio AH ADM SS WBC 5.0 103/mcL Invalid Interpretation Code 4.5 - 10.8 10^3/mcL AH Workflow SS CBC panel Auto (Bld)on 08-18 Erythrocyte distribution width (RBC) [Ratio] 11.4 % Low 11.5-15.0 [facility] Comment on above: Order Comment: Speci men Type: BLOOD SPECIMEN Ordering Facility: [facility] Address: [address] [place] [address] Performed By: #### 5 8410-2 #### [facility] CLIA [id number] [address] [place] [address] OF [place] Hematocrit (Bld) [Volume fraction] 39.0 % Normal 36.0-46.0 [facility] Comment on above: Order Comment: Speci men Type: BLOOD SPECIMEN Ordering Facility: [facility] Address: [address] [place] [address] Performed By: #### 5 8410-2 #### [facility] CLIA [id number] [address] [place] [address] [place] Hemoglobin (Bld) [Mass/Vol] 13.2 g/dL Normal 11.5-15.5 [facility] Comment on above: Order Comment: Speci men Type: BLOOD SPECIMEN Ordering Facility: [facility] Address: [address] [place] [address] Performed By: #### 5 8410-2 #### [facility] CLIA [id number] [address] [place] [address] [place] MCH (RBC) [Entitic mass] 30.3 pg Normal 26.0-34.0 [facility] Comment on above: Order Comment: Speci men Type: BLOOD SPECIMEN Ordering Facility: [facility] Address: [address] [place] [address] Performed By: #### 5 8410-2 #### [facility] CLIA [id number] [address] [place] [address] [place] MCHC (RBC) [Mass/Vol] 33.8 g/dL Normal 30.5-36.0 [facility] Comment on above: Order Comment: Speci men Type: BLOOD SPECIMEN Ordering Facility: [facility] Address: [address] [place], [place] [id number] Performed By: #### 5 8410-2 #### [facility] CLIA [id number] [address] [place] [address] [place] MCV (RBC) [Entitic vol] 89.7 fL Normal 80.0-100.0 [facility] Comment on above: Order Comment: Speci men Type: BLOOD SPECIMEN Ordering Facility: [facility] Address: [address] [place], [place] [id number] Performed By: #### 5 8410-2 #### [facility] CLIA [id number] [address] [place] [address] [place] Nucleated RBC (Bld) [#/Vol] 10*3/uL Normal <0.01 [facility] Comment on above: Order Comment: Speci men Type: BLOOD SPECIMEN Ordering Facility: [facility] Address: [address] [place] [address] Performed By: #### 5 8410-2 #### [facility] CLIA [id number] [address] [place] [address] [place] Platelet mean volume (Bld) [Entitic vol] 11.2 fL Normal 9.0-12.7 [facility] Comment on above: Order Comment: Speci men Type: BLOOD SPECIMEN Ordering Facility: [facility] Address: [address] [place], [place] [id number] Performed By: #### 5 8410-2 #### [facility] CLIA [id number] [address] [place] [address] [place] Platelets (Bld) [#/Vol] 181 10*3/uL Normal 150-400 [facility] Comment on above: Order Comment: Speci men Type: BLOOD SPECIMEN Ordering Facility: [facility] Address: [address] [place], [place] [id number] Performed By: #### 5 8410-2 #### [facility] CLIA [id number] [address] [place] [address] [place] RBC (Bld) [#/Vol] 4.35 10*6/uL Normal 3.90-5.20 [facility] Comment on above: Order Comment: Speci men Type: BLOOD SPECIMEN Ordering Facility: [facility] Address: [address] [place] [address] Performed By: #### 5 8410-2 #### [facility] CLIA [id number] [address] [place] [address] [place] WBC (Bld) [#/Vol] 6.30 10*3/uL Normal 3.70-11.00 [facility] Comment on above: Order Comment: Speci men Type: BLOOD SPECIMEN Ordering Facility: [facility] Address: [address] [place] [address] Performed By: #### 5 8410-2 #### [facility] CLIA [id number] [address] [place] [address] [place] [facility] Comprehensive metabolic 2000 panelon 08-18-2021 Albumin [Mass/Vol] 3.8 g/dL Normal 3.2-5.0 [facility] Comment on above: Order Comment: Speci men Type: BLOOD SPECIMEN Ordering Facility: [facility] Address: [address] [place] [address] Performed By: #### 2 4323-8, 5643-2 #### [facility] CLIA [id number] [address] [place] [address] [place] ALP [Catalytic activity/Vol] 91 U/L Normal 45-117 [facility] Comment on above: Order Comment: Speci men Type: BLOOD SPECIMEN Ordering Facility: [facility] Address: [address] [place], [place] [id number] Performed By: #### 2 4323-8, 5643-2 #### [facility] CLIA [id number] [address] [place] [address] [place] ALT [Catalytic activity/Vol] 24 U/L Normal 13-61 [facility] Comment on above: Order Comment: Speci men Type: BLOOD SPECIMEN Ordering Facility: [facility] Address: [address] [place] [address] Result Comment: Resu lts may be falsely depressed after the administration of Sulfasalazine and/or Sulfapyridine. Performed By: #### 2 4323-8, 5643-2 #### [facility] CLIA [id number] [address] [place] [address] [place] Anion gap [Moles/Vol] 6 mmol/L Normal 5-16 [facility] Comment on above: Order Comment: Whitneyi men Type: BLOOD SPECIMEN Ordering Facility: [facility] Address: [address] [place] [address] Performed By: #### 2 4323-8, 5643-2 #### [facility] CLIA [id number] [address] [place] [address] [place] AST [Catalytic activity/Vol] 18 U/L Normal 8-34 [facility] Comment on above: Order Comment: Nitin john Type: BLOOD SPECIMEN Ordering Facility: [facility] Address: [address] [place] [address] Result Comment: Resu lts may be falsely depressed after the administration of Sulfasalazine and/or Sulfapyridine. Performed By: #### 2 4323-8, 5643-2 #### [facility] CLIA [id number] [address] [place] [address] [place] Bilirubin [Mass/Vol] 0.4 mg/dL Normal 0.2-1.0 [facility] Comment on above: Order Comment: Nitin john Type: BLOOD SPECIMEN Ordering Facility: [facility] Address: [address] [place] [address] Performed By: #### 2 4323-8, 5643-2 #### [facility] CLIA [id number] [address] [place] [address] [place] Calcium [Mass/Vol] 10.0 mg/dL Normal 8.5-10.5 [facility] Comment on above: Order Comment: Nitin john Type: BLOOD SPECIMEN Ordering Facility: [facility] Address: [address] [address] Performed By: #### 2 4323-8, 5643-2 #### [facility] CLIA [id number] [address] [place] [address] [place] Chloride [Moles/Vol] 107 mmol/L Normal 98-107 [facility] Comment on above: Order Comment: Speci men Type: BLOOD SPECIMEN Ordering Facility: [facility] Address: [address] [place] [address] Performed By: #### 2 4323-8, 5643-2 #### [facility] CLIA [id number] [address] [place] [address] [place] CO2 [Moles/Vol] 29 mmol/L Normal 21-32 [facility] Comment on above: Order Comment: Speci men Type: BLOOD SPECIMEN Ordering Facility: [facility] Address: [address] [place] [address] Performed By: #### 2 4323-8, 5643-2 #### [facility] CLIA [id number] [address] [place] [address] [place] Creatinine [Mass/Vol] 0.91 mg/dL Normal 0.51-0.95 [facility] Comment on above: Order Comment: Speci men Type: BLOOD SPECIMEN Ordering Facility: [facility] Address: [address] [place] [address] Result Comment: Tatum ents receiving either N-Acetylcysteine (NAC) or Metamizole prior to venipuncture, may have falsely depressed results. Performed By: #### 2 4323-8, 5643-2 #### [facility] CLIA [id number] [address] [place] [address] [place] ESTIMATED GLOMERULAR FILTRATION RATE 91 mL/min/1.73m??? Normal >=60 [facility] Comment on above: Order Comment: Speci men Type: BLOOD SPECIMEN Ordering Facility: [facility] Address: [address] [place] [address] Result Comment: Bess mated Glomerular Filtration Rate (eGFR) is calculated using the 2020 CKD-EPI creatinine equation. This equation utilizes serum creatinine, sex, and age as parameters. The creatinine assay has traceable calibration to isotope dilution-mass spectrometry. Refer to KDIGO guidelines for clinical interpretation. In patients with unstable renal function, e.g. those with acute kidney injury, the eGFR may not accurately reflect actual GFR. Performed By: #### 2 4323-8, 5643-2 #### [facility] CLIA [id number] [address] [place] [address] [place] Glucose [Mass/Vol] 81 mg/dL Normal 70-100 [facility] Comment on above: Order Comment: Nitin john Type: BLOOD SPECIMEN Ordering Facility: [facility] Address: [address] [place], [place] [id number] Result Comment: The [place] Diabetes Association (ADA) provides guidance for cutoff values for fasting glucose and random glucose. The ADA defines fasting as no caloric intake for at least 8 hours. Fasting plasma glucose results between 100 to 125 mg/dL indicate increased risk for diabetes (prediabetes). Fasting plasma glucose results greater than or equal to 126 mg/dL meet the criteria for diagnosis of diabetes. In the absence of unequivocal hyperglycemia, results should be confirmed by repeat testing. In a patient with classic symptoms of hyperglycemia or hyperglycemic crisis, random plasma glucose results greater than or equal to 200 mg/dL meet the criteria for diagnosis of diabetes. Reference: Standards of Medical Care in Diabetes 2016, British Diabetes Association. Diabetes Care. 2016.39(Suppl 1). Results may be falsely elevated after the administration of Sulfapyridine. Results may be falsely depressed after the administration of Sulfasalazine. Performed By: #### 2 4323-8, 5643-2 #### [facility] CLIA [id number] [address] [place] [address] [place] Potassium [Moles/Vol] 4.2 mmol/L Normal 3.5-5.1 [facility] Comment on above: Order Comment: Nitin john Type: BLOOD SPECIMEN Ordering Facility: [facility] Address: [address] [place] [address] Performed By: #### 2 4323-8, 5643-2 #### [facility] CLIA [id number] [address] [place] [address] [place] Protein [Mass/Vol] 6.4 g/dL Normal 6.0-8.5 [facility] Comment on above: Order Comment: Speci men Type: BLOOD SPECIMEN Ordering Facility: [facility] Address: [address] [place] [address] Performed By: #### 2 4323-8, 5643-2 #### [facility] CLIA [id number] [address] [place] [address] [place] Sodium [Moles/Vol] 142 mmol/L Normal 136-145 [facility] Comment on above: Order Comment: Speci men Type: BLOOD SPECIMEN Ordering Facility: [facility] Address: [address] [place] [address] Performed By: #### 2 4323-8, 5643-2 #### [facility] CLIA [id number] [address] [place] [address] [place] Urea nitrogen [Mass/Vol] 7 mg/dL Normal 7-26 [facility] Comment on above: Order Comment: Speci men Type: BLOOD SPECIMEN Ordering Facility: [facility] Address: [address] [place] [address] Performed By: #### 2 4323-8, 5643-2 #### [facility] CLIA [id number] [address] [place] [address] [place] ED NOTEon 08-18-2021 ED NOTE HNO ID: [id number] Author: Fredy Grider RN Service: Emergency Medicine Author Type: Registered Nurse Type: ED Notes Filed: 08/18/2021 5:17 PM Note Text: Per phone interview and disucssion with luis per psychiatric facility, pt is determined to be to be d/c home. Pt aaox3, vss, will be given d/c instructions and verbalized understanding. Normal [facility] ED NOTE HNO ID: [id number] Author: Fredy Grider RN Service: Emergency Medicine Author Type: Registered Nurse Type: ED Notes Filed: 08/18/2021 3:02 PM Note Text: Pt provided breast pump earlier for pt, [facility] called and intake completed over phone w/ pt present. [facility] ED NOTE HNO ID: [id number] Author: Koko Gonzalez RN Service: ? Author Type: Registered Nurse Type: ED Notes Filed: 08/18/2021 11:38 AM Note Text: Bed: 43-ED Expected date: 08/18/21 Expected time: 11:16 AM Means of arrival: [facility] Comments: Coming from [facility]. Psych Eval [facility] ED NOTE HNO ID: [id number] Author: Fredy Grider RN Service: Emergency Medicine Author Type: Registered Nurse Type: ED Notes Filed: 08/18/2021 11:37 AM Note Text: C/o manic episodes, not compliant w/ meds, also has had multiple pysch meds in past months with no success per patient, denies any SI or HI thoughts/ideas. aaox3 on arrival. [place] slipped by crisis due to erratic thoughts. Had baby July 19, baby was taken away from pt due to safety per her story. [facility] ED NOTE HNO ID: [id number] Author: Fredy Grider RN Service: Emergency Medicine Author Type: Registered Nurse Type: ED Notes Filed: 08/18/2021 5:19 PM Note Text: Pt belonging and valuables scanned by security and removed and placed in secure locker outside of room. [facility] ED PROV NOTEon 08-18-2021 ED PROV NOTE HNO ID: [id number] Author: Adelaide Pillai DO Service: Emergency Medicine Author Type: Physician Type: ED Provider Notes Filed: 08/18/2021 5:14 PM Note Text: EMERGENCY DEPARTMENT NOTE [facility] Ronna Aguayo Room: [facility]ED HISTORY OF PRESENT ILLNESS: Ronna Aguayo is a 25 year old female with history of depression, anxiety, follows up with [facility] and [facility], who presents today from [facility] on a pink slip for concerns of acute david. Per [facility] staffing, the patient has been exhibiting symptoms of agitation as well as disorganized thoughts, delusions, rapid and pressured speech. She also expresses suicidal gestures and will not contract for safety. In addition, she did give to a 1 month ago and expresses that she does not want to care for her child. Upon presentation to the emergency department, the patient does admit to these concerns, she states that she is hearing voices, she has always been concerned that she has schizophrenia however has never been diagnosed. She was recently started on Abilify and has been taking this as prescribed. She denies any associated alcohol or drug use. She denies any current thoughts at the time of evaluation of suicidal or homicidal ideation. She does admit to some mild abdominal cramping at times, otherwise denies any significant medical complaints. REVIEW OF SYSTEMS: Constitutional: No F/C, No excessive fatigue HENT: No sore throat, No rhinorrhea Resp: No SOB, No cough Cardio: No palpitations, No chest pain GI: Wants to abdominal pain, No nausea, No vomiting : No dysuria, No hematuria Musculoskeletal: No new joint swelling, No back pain Neuro: No isolated numbness or weakness, No headaches Skin: No skin yellowing/jaundice, No pruritus PHYSICAL EXAM: Initial Vital Signs: BP 109/64 Pulse 82 Temp 37 ?C (98.6 ?F) (Oral) Resp 18 Ht 160.2 cm (5' 3.07) Wt 64.9 kg (143 lb) LMP 11/30/2016 SpO2 100% BMI 25.27 kg/m? Constitutional: Stated Age, anxious appearing HENT: NC/AT, Mucous membranes moist Neck: No nuchal rigidity, Supple, Trachea midline Cardiac: Regular rate and rhythm, S1 and S2 normal, no S3, S4, no murmurs gallops or rubs Thorax AND Lungs: Clear to auscultation bilaterally, no wheezes, crackles or rhonchi, No chest tenderness Abdomen: Soft, non-tender, non-distended, no rebound or guarding Back: No CVA tenderness Skin: No rashes, warm, dry, pink Extremities:, No deformities Musculoskeletal: Normal tone Neurologic: Alert and oriented x3, Sensory and motor strength intact in all extremities, no focal deficits noted. No facial asymmetry, no aphasia or dysarthria. Psychiatric: Rapid and pressured speech, flight of ideas, auditory hallucinations, denies suicidal or homicidal ideations, appropriately oriented for baseline CURRENT MEDICATIONS: No current facility-administered medications for this encounter. Current Outpatient Medications: - ondansetron orally disintegrating (ZOFRAN ODT) 4 mg disintegrating tablet, Take 1 tablet by mouth every 6 hours as needed for Nausea/Vomiting., Disp: 12 tablet, Rfl: 0 - levETIRAcetam (KEPPRA) 250 mg tablet, Take 1 tablet by mouth twice daily., Disp: 60 tablet, Rfl: 1 - pimecrolimus(ELIDEL 1 % TOPICAL CREAM), , Disp: , Rfl: 0 - montelukast sodium(SINGULAIR 5 MG CHEWABLE TAB), Take one(1) tablet daily at bedtime., Disp: , Rfl: 0 ALLERGIES: Peanuts MEDICAL DECISION MAKING/ED COURSE RADIOLOGY: I personally reviewed the radiographic images. The radiologist's interpretation reveals: No orders to display LABS: Labs Reviewed HCG QUAL UR - Abnormal; Notable for the following components: Result Value Specific [place], Ur 1.002 (*) All other components within normal limits CBC - Abnormal; Notable for the following components: RDW-CV 11.4 (*) All other components within normal limits URINALYSIS, WITH MICROSCOPIC - Abnormal; Notable for the following components: Specific [place], Ur <1.005 (*) Hemoglobin/Blood,Ur 1+ (*) Bacteria Rare (*) All other components within normal limits COMP METABOLIC PANEL - Normal TOX SCREEN ROUT UR - Normal Narrative: Urine Drugs of Abuse results are qualitative, providing a preliminary analytical result. A positive result for an assay should be confirmed by another nonimmunological, reference method. A negative result indicates that the assay material is either not present, or present at levels below the cutoff threshold for the analytical method range (AMR) validation. ALCOHOL/ETHANOL BLD - Normal EXPEDITED COVID19 - Normal MEDICATIONS RECEIVED IN THE ED: Medications - No data to display DISCHARGE MEDICATION: New Prescriptions No medications on file MDM DISCUSSION: VITAL SIGNS: BP 109/64 Pulse 82 Temp 37 ?C (98.6 ?F) (Oral) Resp 18 Ht 160.2 cm (5' 3.07) Wt 64.9 kg (143 lb) LMP 11/30/2016 (more content not included)... Normal [facility] Ethanol [Mass/Vol] mg/dL Normal <0.010 [facility] Comment on above: Order Comment: Speci men Type: BLOOD SPECIMEN Ordering Facility: [facility] Address: [address] [place] [address] Performed By: #### 2 4323-8, 5643-2 #### [facility] CLIA [id number] [address] [place] [address] HCG ( test) Ql (U)o n 08-18-2021 Specific gravity (U) [Rel density] 1.002 Low 1.005-1.03 0 [facility] Comment on above: Order Comment: Speci men Type: URINE SPECIMEN Ordering Facility: [facility] Address: [address] [place] [address] Performed By: #### 2 106-3, UTOX2 #### [facility] CLIA [id number] [address] [place] [address] [place] HCG Preg Ur Qlon 08-18-2021 HCG ( test) Ql (U) Negative Normal Negative [facility] Comment on above: Order Comment: Speci men Type: URINE SPECIMEN Ordering Facility: [facility] Address: [address] [place] [address] Result Comment: This test is intended to aid in the early detection of . Very dilute urine samples, as indicated by a low specific gravity, may not contain commissary representative levels of hCG. This test detects intact hCG only. This test does not reliably detect hCG degradation products, including free-beta subunit and beta-core fragment. Therefore, this test may show reduced reactivity in urine after 8 weeks gestation. A number of conditions other than , including trophoblastic disease and certain non-trophoblastic neoplasms cause elevated levels of hCG. As with any assay employing mouse antibodies, the possibility exists for interference by human anti-mouse antibodies (HAMA) in the specimen. The test provides a presumptive diagnosis for . Performed By: #### 2 106-3, UTOX2 #### [facility] CLIA [id number] [address] [place] [address] [place] SARS-CoV-2 RNA Resp Ql AMY+p robeon 08-18-2021 SARS-CoV-2 (COVID-19) RNA AMY+probe Ql (Resp) COVID 19 RESULT: SARS-CoV-2 (Agent of COVID-19) Not Detected by RT-PCR or equivalent method. This test has been authorized by FDA under an Emergency Use Authorization (EUA). Normal [facility] Comment on above: Performed By: #### 9 4500-6 #### [facility] CLIA [id number] [address] [place] [address] [place] TOX SCREEN ROUT URon 022 Amphetamines Confirm (U) [Mass/Vol] Negative Normal Negative [facility] Comment on above: Order Comment: Speci men Type: URINE SPECIMEN Ordering Facility: [facility] Address: [address] [place] [address] Result Comment: Cuto ff threshold at 1000 ng/mL. Performed By: #### 2 106-3, UTOX2 #### [facility] CLIA [id number] [address] [place] [address] [place] BARBITURATES, URINE Negative Normal Negative [facility] Comment on above: Order Comment: Speci men Type: URINE SPECIMEN Ordering Facility: [facility] Address: [address] [place] [address] Result Comment: Cuto ff threshold at 200 ng/mL. Performed By: #### 2 106-3, UTOX2 #### [facility] CLIA [id number] [address] [place] [address] [place] BENZODIAZEPINES, UR Negative Normal Negative [facility] Comment on above: Order Comment: Speci men Type: URINE SPECIMEN Ordering Facility: [facility] Address: [address] [place] [address] Result Comment: Cuto ff threshold at 200 ng/mL. Performed By: #### 2 106-3, UTOX2 #### [facility] CLIA [id number] [address] [place] [address] [place] CANNABINOIDS,URINE Negative Normal Negative [facility] Comment on above: Order Comment: Speci men Type: URINE SPECIMEN Ordering Facility: [facility] Address: [address] [place], [place] [phone] Result Comment: Cuto ff threshold at 50 ng/mL. Performed By: #### 2 106-3, UTOX2 #### [facility] CLIA [id number] [address] [place] [address] Cocaine Ql (U) Negative Normal Negative [facility] Comment on above: Order Comment: Speci men Type: URINE SPECIMEN Ordering Facility: [facility] Address: [address] [place] [address] Result Comment: Cuto ff threshold at 300 ng/mL. Performed By: #### 2 106-3, UTOX2 #### [facility] CLIA [id number] [address] [place] [address] Opiates Screen Ql (U) Negative Normal Negative [facility] Comment on above: Order Comment: Speci men Type: URINE SPECIMEN Ordering Facility: [facility] Address: [address] [place] [address] Result Comment: Cuto ff threshold at 300 ng/mL. Performed By: #### 2 106-3, UTOX2 #### [facility] CLIA [id number] [address] [place] [address] Phencyclidine Ql (U) Negative Normal Negative [facility] Comment on above: Order Comment: Speci men Type: URINE SPECIMEN Ordering Facility: [facility] Address: [address] [place] [address] Result Comment: Cuto ff threshold at 25 ng/mL. Performed By: #### 2 106-3, UTOX2 #### [facility] CLIA [id number] [address] [place] [address] Urinalysis complete panel (U )on 08-18-2021 Bacteria LM.HPF (Urine sed) [#/Area] Rare Abnormal None Seen [facility] Comment on above: Order Comment: Speci men Type: URINE SPECIMEN Ordering Facility: [facility] Address: [address] [place] [address] Performed By: #### 2 4356-8 #### [facility] CLIA [id number] [address] [place] [address] [place] Bilirubin Ql (U) Negative Normal Negative [facility] Comment on above: Order Comment: Speci men Type: URINE SPECIMEN Ordering Facility: [facility] Address: [address] [place] [address] Performed By: #### 2 4356-8 #### [facility] CLIA [id number] [address] [place] [address] [place] Clarity (Unsp spec) Clear Normal Clear [facility] Comment on above: Order Comment: Speci men Type: URINE SPECIMEN Ordering Facility: [facility] Address: [address] [place] [address] Performed By: #### 2 4356-8 #### [facility] CLIA [id number] [address] [place] [address] [place] Color (U) Straw Normal Yellow [facility] Comment on above: Order Comment: Speci men Type: URINE SPECIMEN Ordering Facility: [facility] Address: [address] [place] [address] Performed By: #### 2 4356-8 #### [facility] CLIA [id number] [address] [place] [address] [place] Epithelial cells LM.HPF (Urine sed) [#/Area] Few Normal [facility] Comment on above: Order Comment: Speci men Type: URINE SPECIMEN Ordering Facility: [facility] Address: [address] [place] [address] Performed By: #### 2 4356-8 #### [facility] CLIA [id number] [address] [place] [address] [place] Glucose Test strip (U) [Mass/Vol] Negative Normal Negative [facility] Comment on above: Order Comment: Speci men Type: URINE SPECIMEN Ordering Facility: [facility] Address: [address] [place] [address] Performed By: #### 2 4356-8 #### [facility] CLIA [id number] [address] [place] [address] [place] Hemoglobin Ql (U) 1+ Abnormal Negative [facility] Comment on above: Order Comment: Speci men Type: URINE SPECIMEN Ordering Facility: [facility] Address: [address] [place] [address] Performed By: #### 2 4356-8 #### [facility] CLIA [id number] [address] [place] [address] [place] Ketones Ql (U) Negative Normal Negative [facility] Comment on above: Order Comment: Speci men Type: URINE SPECIMEN Ordering Facility: [facility] Address: [address] [place] [address] Performed By: #### 2 4356-8 #### [facility] CLIA [id number] [address] [place] [address] [place] Leukocyte esterase Test strip Ql (U) Negative Normal Negative [facility] [facility] Comment on above: Order Comment: Speci men Type: URINE SPECIMEN Ordering Facility: [facility] Address: [address] [place] [address] Performed By: #### 2 4356-8 #### [facility] CLIA [id number] [address] [place] [address] [place] Nitrite Ql (U) Negative Normal Negative [facility] Comment on above: Order Comment: Speci men Type: URINE SPECIMEN Ordering Facility: [facility] Address: [address] [place] [address] Performed By: #### 2 4356-8 #### [facility] CLIA [id number] [address] [place] [address] [place] pH (U) 8.0 [pH] Normal 5.0-8.0 [facility] Comment on above: Order Comment: Speci men Type: URINE SPECIMEN Ordering Facility: [facility] Address: [address] [place] [address] Performed By: #### 2 4356-8 #### [facility] CLIA [id number] [address] [place] [address] [place] Protein (U) [Mass/Vol] Normal [facility] Comment on above: Order Comment: Speci men Type: URINE SPECIMEN Ordering Facility: [facility] Address: [address] [place] [address] Result Comment: Visi ble blood causes falsely elevated results for analyte Protein. Due to this limitation, Protein will not be reported for patients whose urine contains visible blood. Performed By: #### 2 4356-8 #### [facility] CLIA [id number] [address] [place] [address] [place] RBC LM.HPF (Urine sed) [#/Area] 0-3 /HPF Normal 0-3 /HPF [facility] Comment on above: Order Comment: Speci men Type: URINE SPECIMEN Ordering Facility: [facility] Address: [address] [place] [address] Performed By: #### 2 4356-8 #### [facility] CLIA [id number] [address] [place] [address] [place] Specific gravity (U) [Rel density] <1.005 Low 1.005-1.03 0 [facility] Comment on above: Order Comment: Speci men Type: URINE SPECIMEN Ordering Facility: [facility] Address: [address] [place] [address] Performed By: #### 2 4356-8 #### [facility] CLIA [id number] [address] [place] [address] [place] Urobilinogen Ql (U) Negative Normal Negative [facility] Comment on above: Order Comment: Speci men Type: URINE SPECIMEN Ordering Facility: [facility] Address: [address] [place] [address] Performed By: #### 2 4356-8 #### [facility] CLIA [id number] [address] [place] [address] [place] WBC LM.HPF (Urine sed) [#/Area] 0-5 /HPF Normal 0-5 /HPF [facility] Comment on above: Order Comment: Speci men Type: URINE SPECIMEN Ordering Facility: [facility] Address: [address] [place] [address] Performed By: #### 2 4356-8 #### [facility] CLIA [id number] [address] [place] [address] [place] LABORATORYOrdered By: SYSTEM SYSTEM on 07-20-2021 Hematocrit (Bld) [Volume fraction] 38.2 % Invalid Interpretation Code 34.0 - 46.0 % AH Workflow SS Hgb 13.2 G/dL Invalid Interpretation Code 12.0 - 16.0 G/dL AH Workflow SS LABORATORYOrdered By: Hannah meehan on 07-18-2021 ABO and Rh group Nom (Bld) Blood group A Rh(D) positive Invalid Interpretation Code AH BB Auto SS Blood group antibody screen Ql NEG (07/18/21 8:01 AM) Invalid Interpretation Code AH BB Auto SS LABORATORYOrdered By: SYSTEM SYSTEM on 07-18-2021 Basophils (Bld) [#/Vol] 0.0 103/mcL Invalid Interpretation Code 0.0 - 0.3 10^3/mcL AH Workflow SS Basophils/100 WBC (Bld) 0.4 % Invalid Interpretation Code 0.0 - 2.5 % AH Workflow SS Eosinophil, Absolute 0.1 103/mcL Invalid Interpretation Code 0.0 - 0.7 10^3/mcL AH Workflow SS Eosinophils/100 WBC (Bld) 1.1 % Invalid Interpretation Code 0.0 - 6.0 % AH Workflow SS Erythrocyte distribution width (RBC) [Ratio] 12.7 % Invalid Interpretation Code 11.5 - 15.5 % AH Workflow SS Hematocrit (Bld) [Volume fraction] 35.9 % Invalid Interpretation Code 34.0 - 46.0 % AH Workflow SS Hgb 12.6 G/dL Invalid Interpretation Code 12.0 - 16.0 G/dL AH Workflow SS Lymphocyte, Absolute 1.3 103/mcL Invalid Interpretation Code 0.9 - 4.3 10^3/mcL AH Workflow SS Lymphocytes/100 WBC (Bld) 14.6 % Invalid Interpretation Code 20.0 - 40.0 % AH Workflow SS MCH (RBC) [Entitic mass] 32.4 pg Invalid Interpretation Code 27.0 - 33.0 pg AH Workflow SS MCHC 35.1 G/dL Invalid Interpretation Code 32.0 - 36.0 G/dL AH Workflow SS MCV (RBC) [Entitic vol] 92.3 fL Invalid Interpretation Code 80.0 - 99.0 fL AH Workflow SS Monocyte distribution width Auto (Bld) [Entitic vol] Not Performed 1 *NA* (07/18/21 8:01 AM) Invalid Interpretation Code 0.00 - 20.00 Hematology S Comment on above: Result Comment: MDW testing performed only on adult ER patients between the ages of 18-89 years. Monocyte, Absolute 0.6 103/mcL Invalid Interpretation Code 0.1 - 1.4 10^3/mcL AH Workflow SS Monocytes/100 WBC (Bld) 7.2 % Invalid Interpretation Code 2.0 - 13.0 % AH Workflow SS Neutrophil, Absolute 6.9 103/mcL Invalid Interpretation Code 2.3 - 8.1 10^3/mcL AH Workflow SS Neutrophils/100 WBC (Bld) 76.7 % Invalid Interpretation Code 50.0 - 75.0 % AH Workflow SS Platelet 124 103/mcL Invalid Interpretation Code 150 - 450 10^3/mcL AH Workflow SS Platelet mean volume (Bld) [Entitic vol] 10.4 fL Invalid Interpretation Code 6.6 - 10.5 fL AH Workflow SS RBC 3.89 106/mcL Invalid Interpretation Code 4.10 - 5.30 10^6/mcL AH Workflow SS WBC 9.0 103/mcL Invalid Interpretation Code 4.5 - 10.8 10^3/mcL AH Workflow SS LABORATORYOrdered By: Maite Sanchez on 07-18-2021 Reagin Ab RPR Ql (S) Non-Reactive (07/18/21 8:01 AM) Invalid Interpretation Code Non-Reacti ve AH Man Viro/Sero SS MSCon 05-22-2021 [facility] REPORT Normal [facility] DATE OF SERVICE: 11/2021 REASON OF VISIT: Requesting test. HISTORY OF PRESENT ILLNESS: This is a 25-year-old female, presenting with test request. She does not have any symptom except that she feels hot sometimes. No nausea, vomiting. When I ask her about her last menstruation period, patient stated that she does not know but she is concerned of . I tried to get as much information as possible and asked her about her general health symptoms but she would answer, I don't know with every question I asked her. She sometimes feel cramping in her abdomen. She is eating and drinking well. no urinary symptom. No bowel problems. ALLERGIES: NKA. MEDICATIONS: None. PHYSICAL EXAMINATION: She is awake, alert, not in distress. No dyspnea. Temperature 98.3, blood pressure 131/77, pulse 105, respiration 16, pulse oximetry 99% on room air. Pain score 0/10. HEENT: Unremarkable. Chest: Clear to auscultate. Heart: Regular rhythm. Abdomen: It appears to be that her abdomen was a gravid abdomen. When I palpated her abdomen, I could feel [facility] PATIENT NAME: RONNA AGUAYO [address] MEDICAL REC #: [id number] [place] [address] [facility] REPORT [facility] movements in the abdomen, which to my impression, those were the movements and I could feel parts. I tried to listen to the heart sound but could not really hear any heart sound but felt the movements many times during my abdominal examination. It appears that her uterus is at the umbilicus level, so I decided to do a urinary test, and it was reported positive. ASSESSMENT: . PLAN: Clinical findings discussed with patient in detail. I explained to the patient that her test is positive. Patient made the expression of being very surprised. It appears that patient was not aware at all that she is and again when I tried to get information about her menstrual history and related health questions, she would answer, I don't know with every question I asked her. ASSESSMENT: . PLAN: Clinical findings discussed with patient in detail. I had a detailed discussion with this patient and explained to her about the , and explained to her that she needs to see an OB for further evaluation and care of her . The nursing staff here today also provided her with list of OB with contact [facility] PATIENT NAME: SARAHY AGUAYOCHRISTOPHER Rodríguez [address] MEDICAL REC #: [id number] [place] [address] [facility] REPORT [facility] information and she was explained in great detail that tomorrow she should call an OB and try to get an appointment and be seen by an OB and get continuity of care of her as well. I instructed her to notify her family members. Patient understands and agreed. Hoang Sweeney MD /[id number] [facility] File#: [id number] END OF DOCUMENT / CHANGE LOG FOLLOWS Last Edited By Elec. Signed By Hoang Sweeney MD #PAWPR Hoang Sweeney MD #[id number] on 05/25/2021 15:14 ET on 05/25/2021 15:14 ET Revision Number - 2 Verified/Reviewed by 05/25/21 1514 LUCHO [facility] PATIENT NAME: OLIVIERRONNA Dunlap R [address] MEDICAL REC #: [id number] [place] [address] [facility] REPORT [facility] Normal [facility] URINE PREGNANCYon 05-22-2021 Beta HCG ( test) Ql (U) Positive Normal NEGATIVE [facility] Comment on above: Order Comment: Shital echols: BENJA UR SPEC GRAV 1.010 Normal 1.005-1.03 0 [facility] Comment on above: Order Comment: Campu s: MAS LABORATORYOrdered By: Frannie Michael on 05-21-2021 Appearance (U) Clear (05/21/21 12:48 AM) Invalid Interpretation Code Clear Auto Urine SS Bilirubin Ql (U) Negative (05/21/21 12:48 AM) Invalid Interpretation Code Neg-Trace AH Auto Urine SS Color (U) Yellow (05/21/21 12:48 AM) Invalid Interpretation Code AH Auto Urine SS Glucose Test strip (U) [Mass/Vol] Negative Invalid Interpretation Code Negativemg /dL AH Auto Urine SS Hemoglobin Auto test strip (U) [Mass/Vol] Negative (05/21/21 12:48 AM) Invalid Interpretation Code Neg-Trace AH Auto Urine SS Ketones Ql (U) 40 mg/dL Invalid Interpretation Code Neg-Tracem g/dL AH Auto Urine SS UA Leuk Est Trace *NA* (05/21/21 12:48 AM) Invalid Interpretation Code Negative Auto Urine SS UA Nitrite Negative (05/21/21 12:48 AM) Invalid Interpretation Code Negative Auto Urine SS UA pH 6.5 (05/21/21 12:48 AM) Invalid Interpretation Code 5.0 - 8.0 Auto Urine SS UA Protein Negative Invalid Interpretation Code Negativemg /dL Auto Urine SS UA Spec Grav 1.015 (05/21/21 12:48 AM) Invalid Interpretation Code 1.006-1.02 9 Auto Urine SS UA Specimen Type Clean Catch (05/21/21 12:48 AM) Invalid Interpretation Code AH Auto Urine SS UA Urobilinogen 0.2 E.U./dL Invalid Interpretation Code 0.2-1.0E.U ./dL AH Auto Urine SS LABORATORYOrdered By: SYSTEM SYSTEM on 05-09-2021 Albumin [Mass/Vol] 2.7 G/dL Invalid Interpretation Code 3.2 - 4.8 G/dL AH ADM SS Albumin/Globulin [Mass ratio] 0.8 {ratio} Invalid Interpretation Code 0.9 - 1.6 ratio AH ADM SS ALP [Catalytic activity/Vol] 57 U/L Invalid Interpretation Code 38 - 126 U/L AH ADM SS ALT [Catalytic activity/Vol] 26 U/L Invalid Interpretation Code 10 - 49 U/L AH ADM SS AST [Catalytic activity/Vol] 14 U/L Invalid Interpretation Code 8 - 34 U/L AH ADM SS Base excess Calc (BldMV) [Moles/Vol] 3.0 mEq/L Invalid Interpretation Code 4.0 - 15.0 mEq/L AH ADM SS Basophils (Bld) [#/Vol] 0.00 103/mcL Invalid Interpretation Code 0.00 - 0.27 10^3/mcL AH Remisol SS Basophils/100 WBC (Bld) 0.4 % Invalid Interpretation Code 0.0 - 2.5 % AH Remisol SS Bilirubin [Mass/Vol] 0.2 mg/dL Invalid Interpretation Code 0.2 - 1.2 mg/dL AH ADM SS Calcium [Mass/Vol] 8.4 mg/dL Invalid Interpretation Code 8.4 - 10.1 mg/dL AH ADM SS Chloride [Moles/Vol] 109 mmol/L Invalid Interpretation Code 98 - 110 mEq/L AH ADM SS CO2 [Moles/Vol] 28 mmol/L Invalid Interpretation Code 22 - 32 mEq/L AH ADM SS Creatinine [Mass/Vol] 0.51 mg/dL Invalid Interpretation Code 0.50 - 1.20 mg/dL AH ADM SS Eosinophils (Bld) [#/Vol] 0.10 103/mcL Invalid Interpretation Code 0.00 - 0.65 10^3/mcL AH Remisol SS Eosinophils/100 WBC (Bld) 1.5 % Invalid Interpretation Code 0.0 - 6.0 % AH Remisol SS Erythrocyte distribution width (RBC) [Ratio] 12.9 % Invalid Interpretation Code 11.5 - 15.5 % AH Remisol SS GFR/1.73 sq M.predicted among blacks MDRD (S/P/Bld) [Vol rate/Area] ml/min/1.73sqm Invalid Interpretation Code AH ADM SS GFR/1.73 sq M.predicted among non-blacks MDRD (S/P/Bld) [Vol rate/Area] ml/min/1.73sqm Invalid Interpretation Code AH ADM SS Globulin (S) [Mass/Vol] 3.3 G/dL Invalid Interpretation Code 1.5 - 3.8 G/dL AH ADM SS Glucose [Mass/Vol] 76 mg/dL Invalid Interpretation Code 70 - 110 mg/dL AH ADM SS Hematocrit (Bld) [Volume fraction] 34.7 % Invalid Interpretation Code 34.0 - 46.0 % AH Remisol SS Hemoglobin (Bld) [Mass/Vol] 11.9 G/dL Invalid Interpretation Code 12.0 - 16.0 G/dL AH Remisol SS Lipase [Catalytic activity/Vol] 53 U/L Invalid Interpretation Code 12 - 53 U/L AH ADM SS Lymphocytes (Bld) [#/Vol] 1.50 103/mcL Invalid Interpretation Code 0.90 - 4.32 10^3/mcL AH Remisol SS Lymphocytes/100 WBC (Bld) 19.8 % Invalid Interpretation Code 20.0 - 40.0 % AH Remisol SS MCH (RBC) [Entitic mass] 32.1 pg Invalid Interpretation Code 27.0 - 33.0 pg AH Remisol SS MCHC (RBC) [Mass/Vol] 34.4 G/dL Invalid Interpretation Code 32.0 - 36.0 G/dL AH Remisol SS MCV (RBC) [Entitic vol] 93.2 fL Invalid Interpretation Code 80.0 - 99.0 fL AH Remisol SS Monocytes (Bld) [#/Vol] 0.60 103/mcL Invalid Interpretation Code 0.09 - 1.40 10^3/mcL AH Remisol SS Monocytes/100 WBC (Bld) 7.8 % Invalid Interpretation Code 2.0 - 13.0 % AH Remisol SS Neutrophils (Bld) [#/Vol] 5.50 103/mcL Invalid Interpretation Code 2.25 - 8.10 10^3/mcL AH Remisol SS Neutrophils/100 WBC (Bld) 70.5 % Invalid Interpretation Code 50.0 - 75.0 % AH Remisol SS Platelet mean volume (Bld) [Entitic vol] 8.9 fL Invalid Interpretation Code 6.6 - 10.5 fL AH Remisol SS Platelets (Bld) [#/Vol] 202 103/mcL Invalid Interpretation Code 150 - 450 10^3/mcL AH Remisol SS Potassium [Moles/Vol] 3.9 mmol/L Invalid Interpretation Code 3.5 - 5.0 mEq/L AH ADM SS Protein [Mass/Vol] 6.0 G/dL Invalid Interpretation Code 6.0 - 8.5 G/dL AH ADM SS RBC (Bld) [#/Vol] 3.72 106/mcL Invalid Interpretation Code 4.10 - 5.30 10^6/mcL AH Remisol SS Sodium [Moles/Vol] 140 mmol/L Invalid Interpretation Code 136 - 145 mEq/L AH ADM SS Urea nitrogen [Mass/Vol] 9.0 mg/dL Invalid Interpretation Code 8.0 - 22.0 mg/dL AH ADM SS Urea nitrogen/Creatinin e [Mass ratio] 17.6 ratio Invalid Interpretation Code 10.0 - 22.0 ratio AH ADM SS WBC (Bld) [#/Vol] 7.70 103/mcL Invalid Interpretation Code 4.50 - 10.80 10^3/mcL AH Remisol SS MSCon 04-13-2021 [facility] REPORT Normal [facility] DATE OF SERVICE: 03/2021 REASON FOR VISIT: Rash. HISTORY OF PRESENT ILLNESS: This is a 25-year-old female who presented with rash on both legs. It is more on the right side than left side but she also has rash in other parts of the body as well. Upon detailed questioning,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 [address] BAN ALVES MD [facility] 02-24-2022 11:06-0500 Body temperature 97.88 [degF] DR BAN ALVES MD [facility] 02-24-2022 11:06-0500 Body weight [address] BAN ALVES MD [address] [place] [address] 02-24-2022 11:06-0500 Diastolic Blood Pressure Non-Invasive [address] BAN ALVES MD [address] [place] [address] 02-24-2022 11:06-0500 Heart rate 95 /min DR BAN ALVES MD [address] [place] [address] 02-24-2022 11:06-0500 Respiratory rate 16 /min DR BAN ALVES MD [address] [place] [address] 02-24-2022 11:06-0500 Systolic Blood Pressure Non-Invasive [address] BAN ALVES MD [address] 02-13-2022 10:03-0500 Body temperature 99.14 [degF] DR ARAMIS GEORGE MD [facility] 02-13-2022 10:03-0500 Body weight [address] ARAMIS GEORGE MD [address] [place] [address] 02-13-2022 10:03-0500 Diastolic Blood Pressure Non-Invasive [address] ARAMIS GEORGE MD [address] [place] [address] 02-13-2022 10:03-0500 Heart rate 87 /min DR ARAMIS GEORGE MD [address] [place] [address] 02-13-2022 10:03-0500 Respiratory rate 16 /min DR ARAMIS GEORGE MD [facility] 02-13-2022 10:03-0500 Systolic Blood Pressure Non-Invasive [address] ARAMIS GEORGE MD [facility] 11-19-2021 10:32-0400 Body temperature 97.7 [degF] JAMAAL CRUZ DO [facility] 11-19-2021 10:32-0400 Body weight 54 kg JAMAAL [employer] 11-19-2021 10:32-0400 Diastolic blood pressure 86 mm[Hg] JAMAAL FLOR[facility] 11-19-2021 10:32-0400 Heart rate 81 /min JAMAAL [employer] [facility] 11-19-2021 10:32-0400 Respiratory rate 18 /min JAMAAL FLORENTINOHOSTING [facility] 11-19-2021 10:32-0400 Systolic blood pressure 162 mm[Hg] [facility]AL [facility] 09-11-2021 13:14-0400 Body weight 54.5 kg JAYJAY ALVES MD [address] [place] [address] 09-11-2021 13:14-0400 Diastolic blood pressure 72 mm[Hg] JAYJAY ALVES MD [facility] 09-11-2021 13:14-0400 Heart rate 70 /min JAYJAY ALVES MD [address] 09-11-2021 13:14-0400 Respiratory rate 16 /min JAYJAY ALVES MD [facility] 09-11-2021 13:14-0400 Systolic blood pressure 119 mm[Hg] JAYJAY ALVES MD [facility] 09-08-2021 20:30-0400 Body temperature 98.06 [degF] JAYJAY ALVES MD [facility] 09-08-2021 20:30-0400 Body weight 55.7 kg JAYJAY ALVES MD [address] [place] [address] 09-08-2021 20:30-0400 Diastolic blood pressure 77 mm[Hg] JAYJAY ALVES MD [facility] 09-08-2021 20:30-0400 Heart rate 81 /min JAYJAY ALVES MD [address] [place] [address] 09-08-2021 20:30-0400 Respiratory rate 18 /min JAYJAY ALVES MD [facility] 09-08-2021 20:30-0400 Systolic blood pressure 121 mm[Hg] JAYJAY ALVES MD [facility] 09-02-2021 13:36-0400 Diastolic blood pressure 69 mm[Hg] JAYJAY ALVES MD [address] 09-02-2021 13:36-0400 Heart rate 61 /min JAYJAY ALVES MD [address] [place] [address] 09-02-2021 13:36-0400 Respiratory rate 18 /min JAYJAY ALVES MD [address] 09-02-2021 13:36-0400 Systolic blood pressure 109 mm[Hg] JAYJAY ALVES MD [address] [place] [address] 09-02-2021 11:41-0400 Diastolic blood pressure 68 mm[Hg] JAYJAY ALVES MD [address] 09-02-2021 11:41-0400 Heart rate 66 /min JAYJAY ALVES MD [address] [place] [address] 09-02-2021 11:41-0400 Respiratory rate 16 /min JAYJAY ALVES MD [address] 09-02-2021 11:41-0400 Systolic blood pressure 119 mm[Hg] JAYJAY ALVES MD [facility] 09-02-2021 10:18-0400 Body temperature 98.06 [degF] JAYJAY ALVES MD [address] [place] [address] 09-02-2021 10:18-0400 Body weight 55.5 kg JAYJAY ALVES MD [address] [place] [address] 09-02-2021 10:18-0400 Diastolic blood pressure 75 mm[Hg] JAYJAY ALVES MD [address] [place] [address] 09-02-2021 10:18-0400 Heart rate 80 /min JAYJAY ALVES MD [address] [place] [address] 09-02-2021 10:18-0400 Respiratory rate 18 /min JAYJAY ALVES MD [facility] 09-02-2021 10:18-0400 Systolic blood pressure 122 mm[Hg] JAYJAY ALVES MD [facility] 07-21-2021 00:10-0400 Body temperature 97.52 [degF] DOM OROSCO MD [facility] 07-21-2021 00:10-0400 Diastolic blood pressure 61 mm[Hg] DOM OROSCO MD [facility] 07-21-2021 00:10-0400 Heart rate 82 /min DOM OROSCO MD [facility] 07-21-2021 00:10-0400 Mean blood pressure 84 mm[Hg] DOM OROSCO MD [facility] 07-21-2021 00:10-0400 Respiratory rate 16 /min DOM OROSCO MD [facility] 07-21-2021 00:10-0400 Systolic blood pressure 131 mm[Hg] DOM OROSCO MD [facility] 07-20-2021 15:10-0400 Body temperature 98.24 [degF] DOM OROSCO MD [facility] 07-20-2021 15:10-0400 Diastolic blood pressure 63 mm[Hg] DOM OROSCO MD [facility] 07-20-2021 15:10-0400 Heart rate 81 /min DOM OROSCO MD [facility] 07-20-2021 15:10-0400 Mean blood pressure 79 mm[Hg] DOM OROSCO MD [facility] 07-20-2021 15:10-0400 Respiratory rate 18 /min DOM OROSCO MD [facility] 07-20-2021 15:10-0400 Systolic blood pressure 111 mm[Hg] DOM OROSCO MD [facility] 07-20-2021 07:00-0400 Body temperature 98.6 [degF] DOM OROSCO MD [facility] 07-20-2021 07:00-0400 Diastolic blood pressure 78 mm[Hg] DOM OROSCO MD [facility] 07-20-2021 07:00-0400 Heart rate 58 /min DOM OROSCO MD [facility] 07-20-2021 07:00-0400 Mean blood pressure 92 mm[Hg] DOM OROSCO MD [facility] 07-20-2021 07:00-0400 Systolic blood pressure 119 mm[Hg] DOM OROSCO MD [facility] 07-18-2021 07:40-0400 Body height 157.5 cm DOM OROSCO MD [facility] 07-18-2021 07:40-0400 Body weight 68.2 kg DOM OROSCO MD [facility] 07-18-2021 07:40-0400 Body weight 27.49 kg/m2 DOM OROSCO MD [facility] 07-16-2021 14:15-0400 Body height 157.5 cm GIULIANO SHAFFER MD [facility] 07-16-2021 14:15-0400 Body temperature 97.52 [degF] GIULIANO SHAFFER MD [facility] 07-16-2021 14:15-0400 Body weight 68.2 kg GIULIANO SHAFFER MD [facility] 07-16-2021 14:15-0400 Body weight 27.49 kg/m2 GIULIANO SHAFFER MD [facility] 07-16-2021 14:15-0400 Diastolic blood pressure 79 mm[Hg] GIULIANO SHAFFER MD [facility] 07-16-2021 14:15-0400 Heart rate 106 /min GIULIANO SHAFFER MD [facility] 07-16-2021 14:15-0400 Mean blood pressure 95 mm[Hg] GIULIANO SHAFFER MD [facility] 07-16-2021 14:15-0400 Respiratory rate 20 /min GIULIANO SHAFFER MD [facility] 07-16-2021 14:15-0400 Systolic blood pressure 127 mm[Hg] GIULIANO SHAFFER MD [facility] 07-16-2021 09:55-0400 Body temperature 98.24 [degF] GIULIANO SHAFFER MD [facility] 07-16-2021 09:55-0400 Diastolic blood pressure 74 mm[Hg] GIULIANO SHAFFER MD [facility] 07-16-2021 09:55-0400 Heart rate 87 /min GIULIANO SHAFFER MD [facility] 07-16-2021 09:55-0400 Mean blood pressure 91 mm[Hg] GIULIANO SHAFFER MD [facility] 07-16-2021 09:55-0400 Respiratory rate 18 /min GIULIANO SHAFFER MD [facility] 07-16-2021 09:55-0400 Systolic blood pressure 124 mm[Hg] GIULIANO SHAFFER MD [facility] 07-16-2021 09:53-0400 Body height 157.5 cm GIULIANO SHAFFER MD [facility] 07-16-2021 09:53-0400 Body weight 68.5 kg GIULIANO SHAFFER MD [facility] 07-16-2021 09:53-0400 Body weight 27.61 kg/m2 GIULIANO SHAFFER MD [facility] 07-07-2021 12:02-0400 Body temperature 98.6 [degF] GIFTY WRAY MD [facility] 07-07-2021 12:02-0400 Diastolic blood pressure 73 mm[Hg] GIFTY WRAY MD [facility] 07-07-2021 12:02-0400 Heart rate 77 /min GIFTY WRAY MD [facility] 07-07-2021 12:02-0400 Mean blood pressure 91 mm[Hg] GIFTY WRAY MD [facility] 07-07-2021 12:02-0400 Respiratory rate 18 /min GIFTY WRAY MD [facility] 07-07-2021 12:02-0400 Systolic blood pressure 127 mm[Hg] GIFTY WRAY MD [facility] 07-07-2021 11:57-0400 Body height 157.5 cm GIFTY WRAY MD [facility] 07-07-2021 11:57-0400 Body weight 68 kg GIFTY WRAY MD [facility] 07-07-2021 11:57-0400 Body weight 27.41 kg/m2 GIFTY WRAY MD [facility] 06-22-2021 16:16-0400 Diastolic blood pressure 72 mm[Hg] DR ARAMIS GEORGE MD [facility] 06-22-2021 16:16-0400 Heart rate 70 /min DR ARAMIS GEORGE MD [facility] 06-22-2021 16:16-0400 Respiratory rate 18 /min DR ARAMIS GEORGE MD [facility] 06-22-2021 16:16-0400 Systolic blood pressure 151 mm[Hg] DR ARAMIS GEORGE MD [facility] 06-22-2021 14:43-0400 Body temperature 98.06 [degF] DR ARAMIS GEORGE MD [facility] 06-22-2021 14:43-0400 Body weight 66.[address] ARAMIS GEORGE MD [facility] 06-22-2021 14:43-0400 Diastolic blood pressure 78 mm[Hg] DR ARAMIS GEORGE MD [facility] 06-22-2021 14:43-0400 Heart rate 101 /min DR ARAMIS GEORGE MD [facility] 06-22-2021 14:43-0400 Respiratory rate 18 /min DR ARAMIS GEORGE MD [facility] 06-22-2021 14:43-0400 Systolic blood pressure 119 mm[Hg] DR ARAMIS GEORGE MD [facility] 06-21-2021 21:39-0400 Body height 157.5 cm KAYE COLVIN [facility] 06-21-2021 21:39-0400 Body weight 65.9 kg KAYE VINICIUS DO [facility] 06-21-2021 21:39-0400 Body weight 26.57 kg/m2 KAYE VINICIUS DO [facility] 06-21-2021 21:36-0400 Body temperature 98.42 [degF] KAYE VINICIUS DO [facility] 06-21-2021 21:36-0400 Diastolic blood pressure 72 mm[Hg] KAYE VINICIUS DO [facility] 06-21-2021 21:36-0400 Heart rate 118 /min KAYE VINICIUS DO [facility] 06-21-2021 21:36-0400 Mean blood pressure 87 mm[Hg] KAYE VINICIUS DO [facility] 06-21-2021 21:36-0400 Respiratory rate 18 /min KAYE VINICIUS DO [facility] 06-21-2021 21:36-0400 Systolic blood pressure 116 mm[Hg] KAYE VINICIUS DO [facility] 06-15-2021 15:57-0400 Body temperature 98.06 [degF] JOSÉ MIGUEL ARTHUR MD [facility] 06-15-2021 15:57-0400 Diastolic blood pressure 64 mm[Hg] JOSÉ MIGUEL ARTHUR MD [facility] 06-15-2021 15:57-0400 Heart rate 94 /min JOSÉ MIGUEL ARTHUR MD [facility] 06-15-2021 15:57-0400 Mean blood pressure 81 mm[Hg] JOSÉ MIGUEL ARTHUR MD [facility] 06-15-2021 15:57-0400 Respiratory rate 14 /min JOSÉ MIGUEL ARTHUR MD [facility] 06-15-2021 15:57-0400 Systolic blood pressure 114 mm[Hg] JOSÉ MIGUEL ARTHUR MD [facility] 06-15-2021 15:53-0400 Body height 157.5 cm JOSÉ MIGUEL ARTHUR MD [facility] 06-15-2021 15:53-0400 Body weight 65.9 kg JOSÉ MIGUEL ARTHUR MD [facility] 06-15-2021 15:53-0400 Body weight 26.57 kg/m2 JOSÉ MIGUEL ARTHUR MD [facility] 05-21-2021 08:35-0400 Body temperature 98.24 [degF] KILLIAN GOOD MD [facility] 05-21-2021 08:35-0400 Diastolic blood pressure 59 mm[Hg] KILLIAN GOOD MD [facility] 05-21-2021 08:35-0400 Heart rate 89 /min KILLIAN GOOD MD [facility] 05-21-2021 08:35-0400 Mean blood pressure 77 mm[Hg] KILLIAN GOOD MD [facility] 05-21-2021 08:35-0400 Respiratory rate 18 /min KILLIAN GOOD MD [facility] 05-21-2021 08:35-0400 Systolic blood pressure 113 mm[Hg] KILLIAN GOOD MD [facility] 05-20-2021 23:05-0400 Body height 157.5 cm JOSÉ MIGUEL ARTHUR MD [facility] 05-20-2021 23:05-0400 Body temperature 98.24 [degF] JOSÉ MIGUEL ARTHUR MD [facility] 05-20-2021 23:05-0400 Body weight 63.6 kg JOSÉ MIGUEL ARTHUR MD [facility] 05-20-2021 23:05-0400 Body weight 25.64 kg/m2 JOSÉ MIGUEL ARTHUR MD [facility] 05-20-2021 23:05-0400 Diastolic blood pressure 54 mm[Hg] JOSÉ MIGUEL ARTHUR MD [facility] 05-20-2021 23:05-0400 Heart rate 76 /min JOSÉ MIGUEL ARTHUR MD [facility] 05-20-2021 23:05-0400 Mean blood pressure 68 mm[Hg] JOSÉ MIGUEL ARTHUR MD [facility] 05-20-2021 23:05-0400 Respiratory rate 16 /min JOSÉ MIGUEL ARTHUR MD [facility] 05-20-2021 23:05-0400 Systolic blood pressure 95 mm[Hg] JOSÉ MIGUEL ARTHUR MD [facility] 05-19-2021 11:59-0400 Body temperature 98.42 [degF] JULIANNA MCCLAIN MD [facility] 05-19-2021 11:59-0400 Diastolic blood pressure 69 mm[Hg] JULIANNA MCCLAIN MD [facility] 05-19-2021 11:59-0400 Heart rate 98 /min JULIANNA MCCLAIN MD [facility] 05-19-2021 11:59-0400 Mean blood pressure 77 mm[Hg] JULIANNA MCCLAIN MD [facility] 05-19-2021 11:59-0400 Respiratory rate 18 /min JULIANNA MCCLAIN MD [facility] 05-19-2021 11:59-0400 Systolic blood pressure 94 mm[Hg] JULIANNA MCCLAIN MD [facility] 05-19-2021 11:53-0400 Body height 157.5 cm JULIANNA MCCLAIN MD [facility] 05-19-2021 11:53-0400 Body weight 62 kg JULIANNA MCCLAIN MD [facility] 05-19-2021 11:53-0400 Body weight 24.99 kg/m2 JULIANNA MCCLAIN MD [facility] 05-09-2021 16:38-0400 Diastolic blood pressure 54 mm[Hg] JULIANNA BUCK MD [facility] 05-09-2021 16:38-0400 Heart rate 97 /min JULIANNA BUCK MD [facility] 05-09-2021 16:38-0400 Respiratory rate 16 /min JULIANNA BUCK MD [facility] 05-09-2021 16:38-0400 Systolic blood pressure 106 mm[Hg] JULIANNA BUCK MD [facility] 05-09-2021 15:00-0400 Body temperature 97.88 [degF] JULIANNA BUCK MD [facility] 05-09-2021 15:00-0400 Body weight 63.4 kg JULIANNA BUCK MD [facility] 05-09-2021 15:00-0400 Diastolic blood pressure 65 mm[Hg] JULIANNA BUCK MD [facility] 05-09-2021 15:00-0400 Heart rate 103 /min JULIANNA BUCK MD [facility] 05-09-2021 15:00-0400 Systolic blood pressure 115 mm[Hg] JULIANNA BUCK MD [facility] 05-03-2021 13:25-0400 Respiratory rate 16 /min JOSÉ MIGUEL ARTHUR MD [facility] 05-03-2021 12:09-0400 Body height 157.5 cm JOSÉ MIGUEL ARTHUR MD [facility] 05-03-2021 12:09-0400 Body temperature 98.6 [degF] JOSÉ MIGUEL ARTHUR MD [facility] 05-03-2021 12:09-0400 Body weight 63.2 kg JOSÉ MIGUEL ARTHUR MD [facility] 05-03-2021 12:09-0400 Body weight 25.48 kg/m2 JOSÉ MIGUEL ARTHUR MD [facility] 05-03-2021 12:09-0400 Diastolic blood pressure 63 mm[Hg] JOSÉ MIGUEL ARTHUR MD [facility] 05-03-2021 12:09-0400 Heart rate 92 /min JOSÉ MIGUEL ARTHUR MD [facility] 05-03-2021 12:09-0400 Mean blood pressure 81 mm[Hg] JOSÉ MIGUEL ARTHUR MD [facility] 05-03-2021 12:09-0400 Respiratory rate 16 /min JOSÉ MIGUEL ARTHUR MD [facility] 05-03-2021 12:09-0400 Systolic blood pressure 118 mm[Hg] JOSÉ MIGUEL ARTHUR MD [facility] 04-01-2021 01:17-0500 Body temperature 97.52 [degF] STAR PINEDA MD [facility] 04-01-2021 01:17-0500 Body weight 62.2 kg STAR PINEDA MD [facility] 04-01-2021 01:17-0500 Diastolic blood pressure 66 mm[Hg] STAR PINEDA MD [facility] 04-01-2021 01:17-0500 Heart rate 115 /min STAR PINEDA MD [facility] 04-01-2021 01:17-0500 Respiratory rate 20 /min STAR PINEDA MD [facility] 04-01-2021 01:17-0500 Systolic blood pressure 136 mm[Hg] STAR PINEDA MD [facility] 03-27-2021 09:00-0500 Diastolic blood pressure 66 mm[Hg] KAYE MOOREJUANKA DO [facility] 03-27-2021 09:00-0500 Heart rate 70 /min KAYE TERESAJUANKA DO [facility] 03-27-2021 09:00-0500 Mean blood pressure 79 mm[Hg] KAYE CATHYKA DO [facility] 03-27-2021 09:00-0500 Systolic blood pressure 105 mm[Hg] KAYE TERESAESKA DO [facility] 03-27-2021 07:32-0500 Body temperature 98.42 [degF] KAYE TERESAESKA DO [facility] 03-27-2021 07:32-0500 Diastolic blood pressure 53 mm[Hg] KAYE TERESAESKA DO [facility] 03-27-2021 07:32-0500 Heart rate 73 /min KAYE CATHYKA DO [facility] 03-27-2021 07:32-0500 Respiratory rate 17 /min KAYE DURESKA DO [facility] 03-27-2021 07:32-0500 Systolic blood pressure 91 mm[Hg] KAYE DURESKA DO [facility] 03-27-2021 01:25-0500 Diastolic blood pressure 59 mm[Hg] KAYE DURESKA DO [facility] 03-27-2021 01:25-0500 Heart rate 76 /min KAYE CATHYKA DO [facility] 03-27-2021 01:25-0500 Respiratory rate 18 /min KAYE DURESKA DO [facility] 03-27-2021 01:25-0500 Systolic blood pressure 113 mm[Hg] KAYE DURESKA DO [facility] 03-25-2021 21:06-0500 Body temperature 97.88 [degF] KAYE TERESAESKA DO [facility] 03-25-2021 21:06-0500 Mean blood pressure 86 mm[Hg] KAYE DURESKA DO [facility] 03-25-2021 21:06-0500 Reason For Taking VItal Signs KAYE MORGANKA DO [facility] 03-25-2021 13:53-0500 Body temperature 98.06 [degF] KAYE PORTER DO [facility] 03-25-2021 04:47-0500 Reason For Taking VItal Signs KAYE PORTER DO [facility] 03-24-2021 14:10-0500 Reason For Taking VItal Signs KAYE PORTER DO [facility] 03-24-2021 01:34-0500 Heart rate 89 /min KAYE MORGANKA DO [facility] 03-23-2021 18:38-0500 Heart rate 86 /min KAYE PORTER DO [facility] 03-23-2021 12:30-0500 Heart rate 86 /min KAYE PORTER DO [facility] 03-22-2021 22:01-0500 Mean blood pressure 60 mm[Hg] KAYE PORTER DO [facility] 03-11-2021 20:45-0500 Diastolic blood pressure 58 mm[Hg] PETER SHANE MD [facility] 03-11-2021 20:45-0500 Heart rate 78 /min PETER SHANE MD [facility] 03-11-2021 20:45-0500 Mean blood pressure 79 mm[Hg] PETER SHANE MD [facility] 03-11-2021 20:45-0500 Respiratory rate 15 /min PETER SHANE MD [facility] 03-11-2021 20:45-0500 Systolic blood pressure 120 mm[Hg] PETER SHANE MD [facility] 03-11-2021 20:33-0500 Body height 157.5 cm PETER SHANE MD [facility] 03-11-2021 20:33-0500 Body weight 58.6 kg PETER SHANE MD [facility] 03-11-2021 20:33-0500 Body weight 23.62 kg/m2 PETER SHANE MD [facility] 03-11-2021 20:30-0500 Body temperature 97.7 [degF] PETER SHANE MD [facility] 01-31-2021 10:04-0500 Body temperature 98.78 [degF] MARIA L JAIME PA-C [facility] 01-31-2021 10:04-0500 Body weight 57 kg MARIA L JAIME PA-C [facility] 01-31-2021 10:04-0500 Diastolic blood pressure 67 mm[Hg] MARIA L JAIEM PA-C [facility] 01-31-2021 10:04-0500 Heart rate 72 /min MARIA L JAIME PA-C [facility] 01-31-2021 10:04-0500 Respiratory rate 18 /min [employer] [facility] 01-31-2021 10:04-0500 Systolic blood pressure 103 mm[Hg] [employer] [facility] Encounters Encounter Date Encounter Type Care Provider Facility Start: 07-29-2024 End: 07-29-2024 ambulatory [facility] Facility:[facility] Start: 07-28-2024 End: 07-28-2024 ambulatory [facility] Facility:[facility] Start: 07-02-2024 End: 07-02-2024 Emergency department patient visit [facility] Facility:[facility] Start: 06-03-2024 End: 06-03-2024 ambulatory [facility] Facility:[facility] Start: 06-03-2024 End: 06-03-2024 ambulatory [facility] Facility:[facility] Start: 03-18-2024 End: 03-18-2024 Telephone encounter Kaley Henry APRN.WOUND CARE NURSE Work Phone: [facility] Comment on above: Results Start: 03-17-2024 End: 03-17-2024 ambulatory Facility:[facility] Start: 03-17-2024 End: 03-17-2024 Patient encounter procedure Ra Cantu APRN.WOUND CARE NURSE Work Phone: [facility] Comment on above: Sore throat (Primary Dx); URI, acute Start: 10-24-2023 End: 10-24-2023 ambulatory Facility:[facility] Start: 10-24-2023 End: 10-24-2023 Office outpatient visit 15 minutes Rodrigue Paul APRN.WOUND CARE NURSE Work Phone: [facility] Comment on above: Acute otitis media, right (Primary Dx) Start: 09-10-2023 End: 09-14-2023 ambulatory ALO LO MD Facility:A Start: 03-16-2023 End: 03-16-2023 ambulatory LAURIE ERVIN WOUND CARE NURSE Facility:A Start: 03-16-2023 End: 03-16-2023 Patient encounter procedure LAURIE ERVIN WOUND CARE NURSE [facility] Start: 11-20-2022 End: 11-24-2022 ambulatory VADIM HARRIS MD Facility:[facility] Start: 11-20-2022 End: 11-24-2022 ambulatory VADIM AHRRIS MD Facility:[facility] Start: 11-16-2022 End: 11-16-2022 Emergency department patient visit [facility] Facility:A Start: 11-14-2022 End: 11-14-2022 Emergency department patient visit JAYJAY ALVES MD [facility] Start: 05-06-2022 End: 05-06-2022 Emergency department patient visit DR ELYSSA BOLDEN MD [facility] Start: 04-16-2022 End: 04-16-2022 ambulatory DENISHA KUMAR Facility:[id number] Start: 04-16-2022 End: 04-16-2022 Patient encounter procedure [facility] Work Phone: [facility] Comment on above: Odontalgia (Primary Dx) Start: 02-24-2022 End: 02-24-2022 Emergency department patient visit DR BAN ALVES MD [facility] Start: 02-13-2022 End: 02-13-2022 Emergency department patient visit DR ARAMIS GEORGE MD [facility] Start: 11-19-2021 End: 11-19-2021 Emergency department patient visit JAMAAL CRUZ DO [facility] Start: 2021 End: 2021 Emergency department patient visit DENISHA KUMAR Facility:[id number] Start: 09-11-2021 End: 09-11-2021 Emergency department patient visit JAYJAY ALVES MD [facility] Start: 09-08-2021 End: 09-09-2021 Emergency department patient visit JAYJAY ALVES MD [facility] Start: 09-02-2021 End: 09-02-2021 Emergency department patient visit JAYJAY ALVES MD [facility] Start: 08-18-2021 Admission to establishment Mounika Christensen [facility] Start: 08-18-[address] [facility] Comment on above: Psychiatric Problem Start: 08-18-2021 End: 08-18-2021 Emergency department patient visit ELYSSA LANCE Facility:[id number] Start: 07-18-2021 End: 07-21-2021 Evaluation and management of inpatient DOM OROSCO MD [facility] Start: 07-16-2021 End: 07-16-2021 SAME DAY STAY GIULIANO SHAFFER MD [facility] Start: 07-16-2021 End: 07-16-2021 SAME DAY STAY GIULIANO SHAFFER MD [facility] Start: 07-07-2021 End: 07-07-2021 SAME DAY STAY GIFTY WRAY MD [facility] Start: 06-22-2021 End: 06-22-2021 Emergency department patient visit DR ARAMIS GEORGE MD [facility] Start: 06-21-2021 End: 06-21-2021 SAME DAY STAY KAYE COLVIN DO [facility] Start: 06-15-2021 End: 06-15-2021 SAME DAY STAY JOSÉ MIGUEL ARTHUR MD [facility] Start: 05-22-2021 End: 05-22-2021 Subsequent hospital visit by physician Hoang Sweeney Work Phone: [facility] Comment on above: REQUESTING TEST Start: 05-21-2021 End: 05-21-2021 SAME DAY STAY KILLIAN GOOD MD [facility] Start: 05-20-2021 End: 05-21-2021 SAME DAY STAY JOSÉ MIGUEL ARTHUR MD [facility] Start: 05-19-2021 End: 05-19-2021 SAME DAY STAY JULIANNA MCCLAIN MD [facility] Start: 05-09-2021 End: 05-09-2021 Emergency department patient visit JULIANNA BUCK MD [facility] Start: 05-03-2021 End: 05-03-2021 SAME DAY STAY JOSÉ MIGUEL ARTHUR MD [facility] Start: 04-01-2021 End: 04-01-2021 Emergency department patient visit STAR PINEDA MD [facility] Start: 03-21-2021 End: 03-27-2021 Emergency department patient visit KAYE PORTER DO [facility] Start: 03-11-2021 End: 03-11-2021 SAME DAY STAY PETER SHANE MD [facility] Start: 02-22-2021 Patient encounter procedure Hoang Sweeney MD Work Phone: [facility] Start: 02-22-2021 Progress Note Hoang Sweeney MD Work Phone: [facility] Start: 01-31-2021 End: 01-31-2021 Emergency department patient visit MARIA L SANDOVAL PA-C [facility] Start: 11-22-2020 Patient encounter procedure Hoang Sweeney MD Work Phone: [facility] Start: 11-22-2020 Progress Note Hoang Sweeney MD Work Phone: [facility] Start: 09-27-2020 Patient encounter procedure Nishi Munoz DO Work Phone: [facility] Start: 09-27-2020 Progress Note Nishi jones DO Work Phone: [facility] Start: 06-12-2020 Patient encounter procedure [facility] Provider [facility] Start: 06-12-2020 Progress Note [facility] Provider [facility] Start: 02-18-2020 Patient encounter procedure Hoang Sweeney MD Work Phone: [facility] Start: 02-18-2020 Progress Note Hoang Sweeney MD Work Phone: [facility] Start: 12-05-2019 Patient encounter procedure Hoang Sweeney MD Work Phone: [facility] Start: 12-05-2019 Progress Note Hoang Sweeney MD Work Phone: [facility] Procedures Date Procedure Procedure Detail Performing Clinician Start: 03-17-2024 STREP A MOLECULAR (POC) Ra Cantu APRN.CNP Work Phone: Start: 04-25-2016 Adult depression screening assessment Hoang Sweeney Work Phone: Plan of Treatment Date Care Activity Detail Author Start: 05-03-2031 Urine microalbumin profile DTaP,Tdap,Td Vaccine (3 - Td or Tdap) [facility] Start: 10-14-2023 Covid-19 Vaccine () Covid-19 Vaccine ( season) [facility] Start: 10-14-2023 Covid-19 Vaccine ( season) Covid-19 Vaccine ( season) [facility] Start: 10-14-2023 Influenza vaccination Influenza Vacc ine (#1) [facility] Start: 02-12-2022 DEPRESSION ASSESSMENT DEPRESSION ASS ESSMENT [facility] Start: 01-14-2022 COVID-19 VACCINE (2 - Moderna series) COVID-19 VACCINE (2 - Moderna series) [facility] Start: 10-13-2021 Influenza vaccination C [facility] Start: 10-13-2020 Influenza vaccination INFLUENZA (#1) [facility] Start: 2018 PAP TESTING PAP TESTING [facility] Start: 2018 Screening for malign ant neoplasm of cervix Cervical Cancer Screening [facility] Start: 04-25-2017 Adult depression screening assessment DEPRESSION SCREENING [facility] Start: 2016 Hepatitis B Vaccine (1 of 3 - 19+ 3-dose series) Hepatitis B Vaccine (1 of 3 - 19+ 3-dose series) [facility] Start: 2016 Urine microalbumin profile DTAP,TDAP,TD (1 - Tdap) [facility] Start: 10-03-2015 Anxiety Screening Anxiety Screening [facility] Start: 10-03-2015 CHLAMYDIA SCREENING (18-) CHLAMYDIA SCREENING (18-) [facility] Start: 10-03-2015 Depression Screening Depression Scre ening [facility] Start: 10-03-2015 GC (GONORRHEA) SCREE RUSSEL (18-24) GC (GONORRHEA) SCREENING (18-24) [facility] Start: 10-03-2015 HEPATITIS C SCREENING HEPATITIS C SC REENING [facility] Start: 10-03-2015 Hepatitis C screening Hepatitis C Jeremiah avila [facility] Start: 10-03-2015 HIV SCREENING HIV SCREENING [facility] Start: 10-03-2015 HIV screening HIV Screening [facility] Start: 2012 HPV Vaccine (1 - 3-d ose series) HPV Vaccine (1 - 3-dose series) [facility] Start: 10-03-2011 PEDS TO ADULT TRANSI TION ANNUAL ASSESSMENT PEDS TO ADULT TRANSITION ANNUAL ASSESSMENT [facility] Start: 2009 PEDS TO ADULT TRANSI TION INITIAL DISCUSSION PEDS TO ADULT TRANSITION INITIAL DISCUSSION [facility] Start: 2008 HPV VACCINE (1 - 2-d ose series) HPV VACCINE (1 - 2-dose series) [facility] Start: 10-03-2007 MENINGOCOCCAL B: Consider based on risk (1 of 2 - Risk Bexsero 2-dose series) MENINGOCOCCAL B: Consider based on risk (1 of 2 - Risk Bexsero 2-dose series) [facility] Start: 10-03-2003 PNEUMOCOCCAL (1 - PCV) PNEUMOCOCCAL (1 - PCV) [facility] Start: 2002 COVID-19 VACCINE (#1) COVID-19 VACCI NE (#1) [facility] Start: 2002 COVID-19 VACCINE (1) COVID-19 VACCIN E (1) [facility] Start: 04-04-1998 COVID-19 VACCINE (#1) COVID-19 VACCI NE (#1) [facility] Start: 1997 HEPATITIS B (1 of 3 - 3-dose series) HEPATITIS B (1 of 3 - 3-dose series) [facility] COVID & INFLUENZA A/ B & RSV PCR, ROUTINE COVID & INFLUENZA A/B & RSV PCR, ROUTINE Microbiology Routine URI, acute Ordered: 03/17/2024 [facility] Work Phone: Comment on above: Ordered: 03/17/2024 Immunizations Immunization Date Immunization Notes Care Provider John bauer 12-17-2021 influenza virus vacc ine, unspecified formulation Rodrigue Paul APRN.CNP Work Phone: [facility] 01-24-2021 tetanus toxoid, redu warren diphtheria toxoid, and acellular pertussis vaccine, adsorbed MARIA L SANDOVAL PA-C [facility] 03-05-2015 meningococcal polysaccharide (groups A, C, Y and W-135) diphtheria toxoid conjugate vaccine (MCV4P) KAYE PORTER DO [facility] 12-09-2013 influenza virus vacc ine, unspecified formulation KAYE PORTER DO [facility] 11-06-2012 influenza virus vacc ine, unspecified formulation KAYE PORTER DO [facility] 12-13-2011 influenza virus vacc ine, unspecified formulation KAYE PORTER DO [facility] Payers Date Payer Category Payer Medicare MMO MEDICARE MMO MEDADVANTAGE HMO [id number] 2024-Present [phone] [address] [place] [address] O [id number] 2024 Medicaid [id number] 2024 Unknown [id number] 2024 Self-pay 2022 Medicaid [id number] 2022 Medicaid [id number] 2020 Medicaid [employer] MEDICAID [id number] 2020-Present [phone] [address] [place] [address] Medicaid [id number] 2020 Medicaid [id number] 2018 Unknown [employer] [id number] 2018-Present [phone] [address] [address] [place] [address] PPO [id number] 1997 Unknown [id number] 1997 Unknown [id number] 1997 Unknown [id number] 1997 Unknown [id number] 1997 Unknown [id number] 1997 Unknown [id number] Unknown [id number] Unknown [id number] Unknown [id number] Unknown [id number] Unknown [id number] Social History Date Type Detail Facility Start: 01-01-2021 Never smoked t obacco (finding) [facility] Sex Assigned At [facility] Start: 04-25-2016 End: 02-11-2018 Tobacco smoking status PRIS Smokes tobacco daily [facility] History of tobacco use Cigarette Smoker C [facility] Start: 04-25-2016 End: 04-16-2022 Cigarettes smoked current (pack per day) - Reported 0.25 [facility] Start: 04-25-2016 End: 10-24-2023 Tobacco use and exposure Smokeless tobacco non-user [facility] Start: 04-05-2018 End: 10-24-2023 Alcohol intake Current non-drinker of alcohol (finding) [facility] Start: 1997 Sex Assigned At Not on file [facility] Start: 08-08-2021 End: 08-18-2021 Exposure to SARS-CoV-2 (event) Not sure [facility] Start: 10-27-2021 End: 10-24-2023 Tobacco smoking status Ex-smoker (finding) [facility] History of tobacco use Current smoker [facility] Start: 04-16-2022 End: 10-24-2023 Tobacco use panel [facility] Adult Depression Screening Assessment 0 [facility] Functional Status Date Assessment Result Facility 11-14-2022 Functional Status Standard Safet y ID band on, Call device within reach, Bed in low position, Wheels locked, Phone within reach, personal items within reach, Assistive devices within reach, Safety level maintained, Hazards removed from floor [facility] 05-06-2022 Functional Status ID band on, Safety level maintained [facility] 02-24-2022 Functional Status ID band on, Call device within reach, Bed in low position, Wheels locked, Phone within reach, personal items within reach, Assistive devices within reach, Safety level maintained, Hazards removed from [facility] 11-19-2021 Functional Status Standard Safet y ID band on, Call device within reach, Bed in low position, Wheels locked, Upper/Half-Length side-rails up, Bedside Cart Locked, Safety level maintained [facility] 07-21-2021 Functional Status Rooming in [facility] 07-21-2021 Functional Status [facility] 07-21-2021 Functional Status [facility] 07-21-2021 Functional Status [facility] 07-21-2021 Functional Status [facility] 07-21-2021 Functional Status [facility] 07-20-2021 Functional Status [facility] 07-19-2021 Functional Status [facility] 07-18-2021 Functional Status Living [place] on Home independently [facility] 07-18-2021 Functional Status [facility] 07-16-2021 Functional Status Independent [facility] 06-22-2021 Functional Status [facility] 06-22-2021 Functional Status [facility] 06-21-2021 Functional Status [facility] 05-21-2021 Functional Status [facility] 05-20-2021 Functional Status [facility] Mental Status Date Assessment Result Facility 11-14-2022 Mental Status Orientation Oriented x 4 [facility] 05-06-2022 Mental Status Oriented x 4 [facility] 02-24-2022 Mental Status Oriented x 4 [facility] 02-13-2022 Mental Status Oriented x 4 [facility] 11-19-2021 Mental Status Orientation Oriented x 4 [facility] 11-19-2021 Mental Status [facility] 07-21-2021 Mental Status Orientation Oriented x 4 [facility] 07-16-2021 Mental Status Orientation Oriented x 4 [facility] 07-16-2021 Mental Status Orientation Oriented x 4 [facility] 06-22-2021 [facility] Status [facility] 06-21-2021 Mental Status [facility] 05-21-2021 Mental Status [facility] Clinical Notes 12-05-2019 to 03-18-2024 Telephone Encounter - Ofe Frye LPN - 03/18/2024 7:47 AM ESTTelephone Encounter - Ofe Frye LPN - 03/18/2024 7:47 AM Ra Aguilar APRN.CNP - 03/17/2024 10:21 AM EST Note Date & Type Note Facility 03-18-2024 Telephone encounter Note Formatting of this note might be differe nt from the original. Patient notified.Ofe Frye LPN [facility] 03-18-2024 Miscellaneous Notes Formatting of this note might be differe nt from the original. Patient notified.Ofe Frye LPN Please notify patient she was positive for influenza A. Continue Tamiflu as prescribed * Seek medical care immediately, call 911, go to ER if you have chest pain, difficulty breathing, shortness of breath, inability to swallow. documented in this encounter [facility] 03-18-2024 Telephone encounter Note Formatting of this note might be differe nt from the original. Please notify patient she was positive for influenza A. Continue Tamiflu as prescribed * Seek medical care immediately, call 911, go to ER if you have chest pain, difficulty breathing, shortness of breath, inability to swallow. [facility] Work Phone: 03-17-2024 Note HNO ID: [id number] Author: RA CANTU APRN.[facility] Service: ? Author Type: Nurse Practitioner Type: Progress Notes Filed: 03/17/2024 10:24 Note Text: CC: Patient presents with: Sore Throat: bodyaches and headache x 2 days HPI: Ronna Aguayo is a 28 year old female who presents to the office with complaint of cough, nonproductive and sore throat for 2 days. Symptoms are staying the same. Associated symptoms includes headache and body aches. Denies fever, nausea, vomiting , and diarrhea. Treatments tried include nothing so far. with no relief of symptoms. Sick contacts: unknown. History of asthma, frequent episodes of bronchitis, chronic bronchitis, bronchiectasis or COPD: No Smoker: No Seasonal/environmental allergies: No The ROS is otherwise negative. The patient's pmh, medications, allergies, and past visits are reviewed. PHYSICAL EXAM: BP 116/74 Pulse 84 Temp 36.8 ?C (98.3 ?F) Resp 16 Wt 55.9 kg (123 lb 3.8 oz) LMP 10/17/2023 (Approximate) SpO2 97% BMI 22.54 kg/m? General appearance: alert, cooperative, pleasant, in no acute distress Head: Normocephalic Eyes: EOM's intact, conjunctiva pink and moist, no icterus, sclera white, non-injected Ears: Right ear: External ear/canal- Normal, TM - clear with good landmarks. Left ear: External ear/canal- Normal, TM - clear with good landmarks Oropharynx:moist without lesions, No erythema, exudates or tonsillar hypertrophy. Heart: Negative. RRR without obvious murmur, gallop, or rubs. No ectopy. Lungs: clear to auscultation, without rales or wheeze, good air exchange PAST MEDICAL HISTORY Diagnosis Date Depression Generalized anxiety disorder PAST SURGICAL HISTORY Procedure Laterality Date NONE ALLERGIES Peanuts MEDICATIONS fluticasone (FLONASE) 50 mcg/actuation nasal spray Use 2 Sprays in each nostril daily at bedtime. ARIPiprazole (ABILIFY) 10 mg tablet Take 1 tablet by mouth. buPROPion XL (WELLBUTRIN XL) 150 mg 24 hr tablet Take 1 tablet by mouth once daily. benzonatate (TESSALON PERLE) 100 mg capsule Take 1 capsule by mouth every 8 hours as needed for cough. (Patient not taking: Reported on 03/17/2024) ondansetron orally disintegrating (ZOFRAN ODT) 4 mg disintegrating tablet Take 1 tablet by mouth every 6 hours as needed for Nausea/Vomiting. (Patient not taking: Reported on 06/27/2022) levETIRAcetam (KEPPRA) 250 mg tablet Take 1 tablet by mouth twice daily. (Patient not taking: Reported on 04/16/2022) pimecrolimus(ELIDEL 1 % TOPICAL CREAM) (Patient not taking: Reported on 04/16/2022) montelukast sodium(SINGULAIR 5 MG CHEWABLE TAB) Take one(1) tablet daily at bedtime. (Patient not taking: Reported on 04/16/2022) FAMILY HISTORY Adopted: Yes Social History Tobacco Use Smoking status: Former Current packs/day: 0.25 Average packs/day: 0.3 packs/day for 1 year (0.3 ttl pk-yrs) Types: Cigarettes Smokeless tobacco: Never Substance Use Topics Alcohol use: No Drug use: No ASSESSMENT/PLAN: 1. Sore throat - ICD9: 462, ICD10: J02.9 (primary diagnosis) - STREP A MOLECULAR (POC) - neg 2. URI, acute - ICD9: 465.9, ICD10: J06.9 - OSELTAMIVIR 75 MG CAPSULE Suspect Patient to be positive for influenza A. If influenza A test comes back negative please have her stop Tamiflu. Denies any kidney issues. Prescription instructions reviewed with patient as applicable. Potential red flag symptoms discussed with the patient. Reviewed appropriate action plan to take if red flag symptoms occur. Patient agreeable to treatment plan. Ra Cantu APRN.[facility] 03-17-2024 History of Present illness Narrative Formatting of this note is different fro m the original. CC: Patient presents with: Sore Throat: bodyaches and headache x 2 days HPI: Ronna Aguayo is a 28 year old female who presents to the office with complaint of cough, nonproductive and sore throat for 2 days. Symptoms are staying the same. Associated symptoms includes headache and body aches. Denies fever, nausea, vomiting , and diarrhea. Treatments tried include nothing so far. with no relief of symptoms. Sick contacts: unknown. History of asthma, frequent episodes of bronchitis, chronic bronchitis, bronchiectasis or COPD: No Smoker: No Seasonal/environmental allergies: No The ROS is otherwise negative. The patient's pmh, medications, allergies, and past visits are reviewed. PHYSICAL EXAM: BP 116/74 Pulse 84 Temp 36.8 C (98.3 F) Resp 16 Wt 55.9 kg (123 lb 3.8 oz) LMP 10/17/2023 (Approximate) SpO2 97% BMI 22.54 kg/m General appearance: alert, cooperative, pleasant, in no acute distress Head: Normocephalic Eyes: EOM's intact, conjunctiva pink and moist, no icterus, sclera white, non-injected Ears: Right ear: External ear/canal- Normal, TM - clear with good landmarks. Left ear: External ear/canal- Normal, TM - clear with good landmarks Oropharynx:moist without lesions, No erythema, exudates or tonsillar hypertrophy. Heart: Negative. RRR without obvious murmur, gallop, or rubs. No ectopy. Lungs: clear to auscultation, without rales or wheeze, good air exchange PAST MEDICAL HISTORY Diagnosis Date Depression Generalized anxiety disorder PAST SURGICAL HISTORY Procedure Laterality Date NONE ALLERGIES Peanuts MEDICATIONS fluticasone (FLONASE) 50 mcg/actuation nasal spray Use 2 Sprays in each nostril daily at bedtime. ARIPiprazole (ABILIFY) 10 mg tablet Take 1 tablet by mouth. buPROPion XL (WELLBUTRIN XL) 150 mg 24 hr tablet Take 1 tablet by mouth once daily. benzonatate (TESSALON PERLE) 100 mg capsule Take 1 capsule by mouth every 8 hours as needed for cough. (Patient not taking: Reported on 03/17/2024) ondansetron orally disintegrating (ZOFRAN ODT) 4 mg disintegrating tablet Take 1 tablet by mouth every 6 hours as needed for Nausea/Vomiting. (Patient not taking: Reported on 06/27/2022) levETIRAcetam (KEPPRA) 250 mg tablet Take 1 tablet by mouth twice daily. (Patient not taking: Reported on 04/16/2022) pimecrolimus(ELIDEL 1 % TOPICAL CREAM) (Patient not taking: Reported on 04/16/2022) montelukast sodium(SINGULAIR 5 MG CHEWABLE TAB) Take one(1) tablet daily at bedtime. (Patient not taking: Reported on 04/16/2022) FAMILY HISTORY Adopted: Yes Social History Tobacco Use Smoking status: Former Current packs/day: 0.25 Average packs/day: 0.3 packs/day for 1 year (0.3 ttl pk-yrs) Types: Cigarettes Smokeless tobacco: Never Substance Use Topics Alcohol use: No Drug use: No ASSESSMENT/PLAN: 1. Sore throat - ICD9: 462, ICD10: J02.9 (primary diagnosis) - STREP A MOLECULAR (POC) - neg 2. URI, acute - ICD9: 465.9, ICD10: J06.9 - OSELTAMIVIR 75 MG CAPSULE Suspect Patient to be positive for influenza A. If influenza A test comes back negative please have her stop Tamiflu. Denies any kidney issues. Prescription instructions reviewed with patient as applicable. Potential red flag symptoms discussed with the patient. Reviewed appropriate action plan to take if red flag symptoms occur. Patient agreeable to treatment plan. Ra Cantu APRN.[facility] documented in this encounter [facility] 10-24-2023 Note HNO ID: [id number] Author: RODRIGUE PAUL APRN.[facility] Service: ? Author Type: Nurse Practitioner Type: Progress Notes Filed: 10/24/2023 09:37 Note Text: Patient presents with: Ear Infection: RIGHT ear x 3 weeks SUBJECTIVE: Ronna Aguayo is a 28 year old year old female who presents for the past 3 weeks with symptoms that are:gradually worsening. Treated for AOM 10 days ago at in [place] - amoxicillin x 7d She reports her ear is hurting and feels like cotton pressure, increasing over the last few days Some congestion and cough that are improving Risk factors: none Social History Tobacco Use Smoking status: Former Current packs/day: 0.25 Average packs/day: 0.3 packs/day for 1 year (0.3 ttl pk-yrs) Types: Cigarettes Smokeless tobacco: Never Substance Use Topics Alcohol use: No Drug use: No PAST MEDICAL HISTORY No date: Depression No date: Generalized anxiety disorder 10/24/23 09 BP: 112/64 Pulse: 96 Resp: 16 Temp: 36.9 ?C (98.5 ?F) TempSrc: Left Tympanic SpO2: 100% Weight: 55.8 kg (123 lb 0.3 oz) ALLERGIES Allergen Reactions Peanuts Swelling Medications: benzonatate (TESSALON PERLE) 100 mg capsule Take 1 capsule by mouth every 8 hours as needed for cough. ARIPiprazole (ABILIFY) 10 mg tablet Take 1 tablet by mouth. buPROPion XL (WELLBUTRIN XL) 150 mg 24 hr tablet Take 1 tablet by mouth once daily. amoxicillin-clavulanate potassium (AUGMENTIN) 875-125 mg per tablet Take 1 tablet by mouth every 12 hours for 7 days. fluticasone (FLONASE) 50 mcg/actuation nasal spray Use 2 Sprays in each nostril daily at bedtime. ondansetron orally disintegrating (ZOFRAN ODT) 4 mg disintegrating tablet Take 1 tablet by mouth every 6 hours as needed for Nausea/Vomiting. (Patient not taking: Reported on 06/27/2022) levETIRAcetam (KEPPRA) 250 mg tablet Take 1 tablet by mouth twice daily. (Patient not taking: Reported on 04/16/2022) pimecrolimus(ELIDEL 1 % TOPICAL CREAM) (Patient not taking: Reported on 04/16/2022) montelukast sodium(SINGULAIR 5 MG CHEWABLE TAB) Take one(1) tablet daily at bedtime. (Patient not taking: Reported on 04/16/2022) Review of Systems Constitutional: Negative for chills, fever, malaise/fatigue and weight loss. HENT: Positive for congestion and ear pain. Negative for ear discharge and sore throat. Eyes: Negative for discharge and redness. Respiratory: Positive for cough. Physical Exam Vitals and nursing note reviewed. Constitutional: General: She is not in acute distress. Appearance: Normal appearance. She is not ill-appearing or toxic-appearing. HENT: Head: Normocephalic. Right Ear: External ear normal. A middle ear effusion (honey colored) is present. Tympanic membrane is erythematous. Left Ear: Tympanic membrane, ear canal and external ear normal. Nose: Nose normal. Mouth/Throat: Mouth: Oropharynx is clear and moist. Pharynx: No oropharyngeal exudate. Eyes: General: Right eye: No discharge. Left eye: No discharge. Conjunctiva/sclera: Conjunctivae normal. Cardiovascular: Rate and Rhythm: Normal rate and regular rhythm. Heart sounds: Normal heart sounds. Pulmonary: Effort: Pulmonary effort is normal. No respiratory distress. Breath sounds: Normal breath sounds. No wheezing or rales. Musculoskeletal: Cervical back: Neck supple. Lymphadenopathy: Cervical: No cervical adenopathy. Skin: General: Skin is warm and dry. Findings: No rash. Neurological: General: No focal deficit present. Mental Status: She is alert and oriented to person, place, and time. Psychiatric: Mood and Affect: Mood normal. Behavior: Behavior normal. ASSESSMENT/PLAN: 1. Acute otitis media, right - ICD9: 382.9, ICD10: H66.91 - Will begin treatment with Augmentin 875 mg PO BID for 7 days - The patient should also be given flonase for the first 5-7 days of treatment. - Supportive care with plenty of fluids, rest, and analgesia prn. - Follow up with ENT in 3-5 days if symptoms persist or worsen. Rodrigue Paul, DAISY.[facility] 10-24-2023 History of Present illness Narrative Formatting of this note is different fro m the original. Patient presents with: Ear Infection: RIGHT ear x 3 weeks SUBJECTIVE: Ronna Aguayo is a 28 year old year old female who presents for the past 3 weeks with symptoms that are:gradually worsening. Treated for AOM 10 days ago at in [place] - amoxicillin x 7d She reports her ear is hurting and feels like cotton pressure, increasing over the last few days Some congestion and cough that are improving Risk factors: none Social History Tobacco Use Smoking status: Former Current packs/day: 0.25 Average packs/day: 0.3 packs/day for 1 year (0.3 ttl pk-yrs) Types: Cigarettes Smokeless tobacco: Never Substance Use Topics Alcohol use: No Drug use: No PAST MEDICAL HISTORY No date: Depression No date: Generalized anxiety disorder 10/24/23 09 BP: 112/64 Pulse: 96 Resp: 16 Temp: 36.9 C (98.5 F) TempSrc: Left Tympanic SpO2: 100% Weight: 55.8 kg (123 lb 0.3 oz) ALLERGIES Allergen Reactions Peanuts Swelling Medications: benzonatate (TESSALON PERLE) 100 mg capsule Take 1 capsule by mouth every 8 hours as needed for cough. ARIPiprazole (ABILIFY) 10 mg tablet Take 1 tablet by mouth. buPROPion XL (WELLBUTRIN XL) 150 mg 24 hr tablet Take 1 tablet by mouth once daily. amoxicillin-clavulanate potassium (AUGMENTIN) 875-125 mg per tablet Take 1 tablet by mouth every 12 hours for 7 days. fluticasone (FLONASE) 50 mcg/actuation nasal spray Use 2 Sprays in each nostril daily at bedtime. ondansetron orally disintegrating (ZOFRAN ODT) 4 mg disintegrating tablet Take 1 tablet by mouth every 6 hours as needed for Nausea/Vomiting. (Patient not taking: Reported on 06/27/2022) levETIRAcetam (KEPPRA) 250 mg tablet Take 1 tablet by mouth twice daily. (Patient not taking: Reported on 04/16/2022) pimecrolimus(ELIDEL 1 % TOPICAL CREAM) (Patient not taking: Reported on 04/16/2022) montelukast sodium(SINGULAIR 5 MG CHEWABLE TAB) Take one(1) tablet daily at bedtime. (Patient not taking: Reported on 04/16/2022) Review of Systems Constitutional: Negative for chills, fever, malaise/fatigue and weight loss. HENT: Positive for congestion and ear pain. Negative for ear discharge and sore throat. Eyes: Negative for discharge and redness. Respiratory: Positive for cough. Physical Exam Vitals and nursing note reviewed. Constitutional: General: She is not in acute distress. Appearance: Normal appearance. She is not ill-appearing or toxic-appearing. HENT: Head: Normocephalic. Right Ear: External ear normal. A middle ear effusion (honey colored) is present. Tympanic membrane is erythematous. Left Ear: Tympanic membrane, ear canal and external ear normal. Nose: Nose normal. Mouth/Throat: Mouth: Oropharynx is clear and moist. Pharynx: No oropharyngeal exudate. Eyes: General: Right eye: No discharge. Left eye: No discharge. Conjunctiva/sclera: Conjunctivae normal. Cardiovascular: Rate and Rhythm: Normal rate and regular rhythm. Heart sounds: Normal heart sounds. Pulmonary: Effort: Pulmonary effort is normal. No respiratory distress. Breath sounds: Normal breath sounds. No wheezing or rales. Musculoskeletal: Cervical back: Neck supple. Lymphadenopathy: Cervical: No cervical adenopathy. Skin: General: Skin is warm and dry. Findings: No rash. Neurological: General: No focal deficit present. Mental Status: She is alert and oriented to person, place, and time. Psychiatric: Mood and Affect: Mood normal. Behavior: Behavior normal. ASSESSMENT/PLAN: 1. Acute otitis media, right - ICD9: 382.9, ICD10: H66.91 - Will begin treatment with Augmentin 875 mg PO BID for 7 days - The patient should also be given flonase for the first 5-7 days of treatment. - Supportive care with plenty of fluids, rest, and analgesia prn. - Follow up with ENT in 3-5 days if symptoms persist or worsen. Rodrigue Paul APRN.DEJUAN documented in this encounter [facility] 10-24-2023 Instructions Rodrigue Paul APRN.CNP - 10/24/2023 9:32 AM EDT Otitis media is an infection of the middle ear. The middle ear sits behind the eardrum. This infection may be caused by a virus or bacteria and often follows a cold. Otitis media is not contagious. INSTRUCTIONS: 1. If an antibiotic has been prescribed,it should be taken exactly as prescribed. Do not stop the medicine even if the symptoms go away. 2. Blar-kcl-tybhbvx pain medication may be taken or other pain medication as prescribed by the doctor. 3. Nothing should be placed in the ear unless instructed by your doctor. 4. The patient may return to school or work when the temperature is normal (98.6 F or 37 C). 5. The patient should not swim while the ear is infected. CALL YOUR PRIMARY CARE PROVIDERS OFFICE- -If you do not feel better within 48-72 hours. -If you develop a temperature over 102 F (39 C). -If you develop drainage from the affected ear. -If you have any new problem that may be related to the medicine prescribed. documented in this encounter [facility] 11-21-2022 Note . MICRO - Microbiology PROCEDURE: Affirm Pathogens DNA Direct Probe [*1] SOURCE: Vaginal Fluid BODY SITE: Vagina COLLECTED DATE/TIME: 11/20/2022 14:54 EDT RECEIVED DATE/TIME: 11/21/2022 07:34 EDT START DATE/TIME: 11/21/2022 07:35 EDT FREE TEXT SOURCE: FINAL REPORTS Final Report [] Verified Date/Time/Personnel: 11/21/2022 10:00 EDT Gardnerella vaginalis DNA Probe Negative Trichomonas vaginalis DNA Probe Negative Cristina species DNA Probe Negative Performing Locations *1: This test was performed at: [address], [facility] , [facility] ([place]) 11-14-2022 Hospital Discharge instructions Patient Education 11/14/2022 17:06:48 Ovarian Cysts Ovarian Cysts A cyst is usually a fluid-filled sac, like a small water balloon. Cysts are almost always harmless, and many go away on their own. Usually they grow slowly. They can vary in size from as small as a pea to larger than a grapefruit. Many cause no symptoms at all. Often they are felt only during a pelvic exam. Ovarian cysts are usually not cancer. Functional cyst A functional cyst is the most common kind of cyst. It forms when a follicle does not release a mature egg or continues to grow after releasing the egg. Functional cysts usually occur on only one ovary at a time. They usually shrink on their own in 1 to 3 months. In rare cases, a cyst will burst (rupture), causing pain. Pain might also be caused by the twisting of an ovary that is enlarged because of the cyst growing on it. Dermoid cyst Sometimes cells that are present from will start to grow into different kinds of tissue such as skin, fat, hair, and teeth. This kind of cyst is called a dermoid cyst. Dermoid cysts can grow on one or both ovaries. Usually they cause no symptoms. But if they leak or the ovary becomes twisted, they can cause severe pain. Endometrioma Sometimes tissue similar to the lining of the uterus (endometrium) grows and becomes part of the ovary. This kind of cyst is often called a chocolate cyst because of its dark-brown color. These cysts can grow on one or both ovaries. They often cause pain, especially around menstruation or during sex. Benign cystadenoma If the capsule that surrounds the ovary grows, it can form a cystadenoma. These cysts can grow on one or both ovaries. Usually they cause no symptoms if they are small. But if they become large, they can press on organs near the ovaries, causing pain. They can also cause pain by stretching the ovarian capsule. A cyst that pushes on the bladder can cause frequent urination. Sometimes these cysts rupture and bleed. Malignant cysts These cysts can invade other tissues or spread to other parts of the body. [id number] [employer]. [address] [place] [address], [place] [address]. All rights reserved. This information is not intended as a substitute for professional medical care. Always follow your healthcare professional's instructions. Follow Up Care 11/14/2022 09:31:44 With:[facility] Address: [address] [place] [address]- When:3-7 days [facility] 11-14-2022 Emergency department Discharge summary Discharge Instructions Thank you for allowing [facility] to assist you with your healthcare needs. The following is important discharge information regarding your hospital visit. Diagnosis from Today's Visit Chest pain with deep breathing Ovarian cyst rupture UTI (urinary tract infection) What to Do Next Instructions from Your Care Team No qualifying data available. Post Acute Orders No qualifying data available. You Need to Schedule the Following Appointments Follow Up with [facility] When Within 3-7 days Where: [address] [place] [address]- Allergies NKA Medications Please ask your primary doctor or pharmacist before taking any other medication not listed, including over the counter drugs, herbal medications, vitamins and or supplements as they may interact with your home medications. What How Much When Why Instructions Last Dose New acetaminophen-oxyCODONE (Percocet 5 mg-325 mg oral tablet) 1 tab(s) by mouth Every 6 hours as needed for for pain Ovarian cyst rupture Duration: 3 Days Printed Prescription New cephalexin (cephalexin 500 mg oral capsule) 1 cap by mouth Every 12 hours Duration: 7 Days Printed Prescription New ondansetron (ondansetron 4 mg oral tablet) 1 tab(s) by mouth Every 6 hours as needed for Nausea/Vomiting Printed Prescription Unchanged ARIPiprazole (ARIPiprazole 5 mg oral tablet) 1 tab(s) by mouth Every day Unchanged buPROPion (buPROPion 300 mg/ 24 hours (XL) oral tablet, extended release) 1 tab(s) by mouth Once a day Unchanged dicyclomine (Bentyl use dicyclomine ) 20 Milligram by mouth Four (4) times a day Duration: 7 Days Unchanged dicyclomine (Bentyl use dicyclomine ) 20 Milligram by mouth Four (4) times a day Abdominal pain - cause unknown Unchanged docusate (Colace 100 mg oral capsule) 1 cap by mouth Two (2) times a day Unchanged docusate (Colace 100 mg oral capsule) 1 cap by mouth Two (2) times a day as needed for as needed for constipation Duration: 30 Days Unchanged famotidine (Pepcid 20 mg oral tablet) 1 tab(s) by mouth Two (2) times a day Unchanged ibuprofen (ibuprofen 600 mg oral tablet) 1 tab(s) by mouth Every 6 hours Take with food or milk. Unchanged multivitamin, ( Multivitamins with Folic Acid 1 mg oral tablet) 1 tab(s) by mouth Every day Please take this list to your next doctor s visit. Bring all medications you take, including over the counter medications, herbals and other supplements with you to your doctor s visit. Patients and families are reminded to discard old lists and to update any records with all medication providers or retail pharmacies. Education Materials Ovarian Cysts A cyst is usually a fluid-filled sac, like a small water balloon. Cysts are almost always harmless, and many go away on their own. Usually they grow slowly. They can vary in size from as small as a pea to larger than a grapefruit. Many cause no symptoms at all. Often they are felt only during a pelvic exam. Ovarian cysts are usually not cancer. Functional cyst A functional cyst is the most common kind of cyst. It forms when a follicle does not release a mature egg or continues to grow after releasing the egg. Functional cysts usually occur on only one ovary at a time. They usually shrink on their own in 1 to 3 months. In rare cases, a cyst will burst (rupture), causing pain. Pain might also be caused by the twisting of an ovary that is enlarged because of the cyst growing on it. Dermoid cyst Sometimes cells that are present from will start to grow into different kinds of tissue such as skin, fat, hair, and teeth. This kind of cyst is called a dermoid cyst. Dermoid cysts can grow on one or both ovaries. Usually they cause no symptoms. But if they leak or the ovary becomes twisted, they can cause severe pain. Endometrioma Sometimes tissue similar to the lining of the uterus (endometrium) grows and becomes part of the ovary. This kind of cyst is often called a chocolate cyst because of its dark-brown color. These cysts can grow on one or both ovaries. They often cause pain, especially around menstruation or during sex. Benign cystadenoma If the capsule that surrounds the ovary grows, it can form a cystadenoma. These cysts can grow on one or both ovaries. Usually they cause no symptoms if they are small. But if they become large, they can press on organs near the ovaries, causing pain. They can also cause pain by stretching the ovarian capsule. A cyst that pushes on the bladder can cause frequent urination. Sometimes these cysts rupture and bleed. Malignant cysts These cysts can invade other tissues or spread to other parts of the body. [id number] [employer]. [address] [place] [address]. All rights reserved. This information is not intended as a substitute for professional medical care. Always follow your healthcare professional's instructions. Additional Information VACCINATE! IT SAVES LIVES! Members of the community who have not yet received the COVID-19 vaccine and would like to receive it can visit one of [facility] vaccine clinics. There are many vaccine clinic locations within the [facility]. For locations and available times, please visit www.gettheshot.coronavirus.[place].gov/. It is important to note that some COVID mobile vaccine clinics are held outdoors and may be canceled in rainy or stormy conditions. To learn more about pediatric vaccinations (ages 5-11), we invite you to visit the [facility] webpage. [email or web address]/pages/2019-Novel- Ygiwwlfkuky-Qaxbzhxyvt-Ldlfe-Questions.html To learn more about the COVID-19 vaccine, we invite you to visit the CDC website for a list of frequently asked questions. https://www.cdc.gov/coronavirus/2019-ncov/vaccin es/faq.html [facility] Patient Portal Access Instructions: Stay connected with your healthcare team and access your personal medical information anytime with the [facility] Patient Portal. If you would like a full copy of your medical records please contact the [facility] Medical Records Department Sunday through Sunday between 8a.m. and 4:30p.m. Please follow the directions below to access the portal: 1.Access the email account you provided upon registration to the [facility].2.Look for an invitation email from [facility].3.Open the email and access the invitation link: Accept Invitation to [facility]4.Fill in the required adame to create your account. Sign into [email or web address] with your username and password that you created in the above steps to stay up to date. You can then view a summary of results, a summary of your visits, and the ability to download your summaries to your computer or send the information securely to a physician. Remember that your healthcare information is confidential, so carefully consider who you will allow to register on the [facility] Patient Portal for access to your information. You can also access the [facility] Patient Portal on the [employer] cinthya. Simply click on Health Records under Health Data and then click on the [employer] logo. HOW TO SAFELY DISPOSE OF PRESCRIPTION MEDICATIONS Please use one of the following methods to safely dispose of your unused medications. 1.Use a drug disposal kit: the drug disposal pouch allows you to safely discard your old and unused drugs. Ask your nurse to give you one when you are discharged.2.Visit a local take-back location: Many local pharmacies and police departments have programs that collect old and unwanted prescription drugs. Call your local pharmacy or go to http://bit.[employer]/5F1Nr4w to find one close to you.3.Make use of household items: Use cat litter or old coffee grounds to dispose medications if other options are not available. Mix your drugs with these household products, seal them in an airtight container and throw it into the garbage. Call [facility]: [phone] to be sure your drugs can be disposed of in this way. Some medicines may require a different approach.4.Never flush your medications down the toilet. IF YOU HAVE BEEN PRESCRIBED AN OPIOIDS FOR PAIN If you have been prescribed an opioid (such as hydrocodone, oxycodone or morphine), it is critical to understand the possible side effects and risks of opioid pain medications. Even when taken as directed, opioids can have several side effects including: Tolerance, meaning you might need to take more of a medication for the same pain relief. Nausea, vomiting and/or constipation. Sleepiness, dizziness, dry mouth, confusion, depression or itching. Physical dependence, meaning you have withdrawal symptoms when a medication is stopped ? this can develop within a few days. KNOW YOUR RESPONSIBILITIES It is important to know exactly how much and how often to take the opioid pain medications you are prescribed. Never take opioids in higher amounts or more often than prescribed. Do not combine opioids with alcohol or other drugs that cause drowsiness, such as benzodiazepines, also known as benzos, including diazepam and alprazolam, muscle relaxants or sleep aids. Never sell or share prescription opioids. This is illegal. Store opioids in a secure place and out of reach of others (including children, family, friends and visitors). The last page(s) of this document has been signed and retained as a CHART COPY Signatures Patient Education Materials Ovarian Cysts Medication Leaflets My discharge plan and instructions have been reviewed and explained to me and IOLIVIER NATASHA L understand my current condition and have read and understand these discharge instructions. I have received a written copy of the plan/instructions. If I have questions, I am aware that I should contact my doctor. Patient/Field Representative/Health Education Signature: Date/Time: Relationship to Patient: Witness Name/Signature: Date/Time: [facility] 11-14-2022 Note ORIGINAL EXAMINATION: CT OF THE ABDOMEN AND PELVIS WITH CONTRAST 11/14/2022 3:14 pm TECHNIQUE: CT of the abdomen and pelvis was performed with the administration of intravenous contrast. Multiplanar reformatted images are provided for review. Automated exposure control, iterative reconstruction, and/or weight based adjustment of the mA/kV was utilized to reduce the radiation dose to as low as reasonably achievable. COMPARISON: CT abdomen pelvis February 24, 2022 HISTORY: ORDERING SYSTEM PROVIDED HISTORY: Reason for Exam: RT SIDED ABD AND FLANK PAIN X 1 DAY abdominal and flank pain FINDINGS: Lower Chest: No focal consolidation. Organs: The liver, gallbladder, spleen, pancreas adrenal glands and kidneys are unremarkable. No hydronephrosis. GI/Bowel: Small to moderate amount of greater than simple density fluid in the abdomen or pelvis. Small amount of more discrete blood products in the pelvis. No bowel obstruction or pneumoperitoneum. Nondilated appendix. Pelvis: Heterogeneity to the left ovary. Uterus grossly unremarkable. Bladder decompressed. Peritoneum/Retroperitoneum: Nonaneurysmal abdominal aorta. No enlarged lymph nodes. Bones/Soft Tissues: No acute findings. IMPRESSION: Small to moderate amount of blood products in the abdomen pelvis, more discretely in the pelvis. Findings are could reflect sequelae of ovarian cyst rupture/hemorrhage. Interpreted by: Elver Collins Preliminary Report By: Elver Collins Electronically signed By Elver Collins Dictated Date: 11/14/2022 4:36:21 PM Prelim Date: 11/14/2022 4:41:55 PM Sign Date: 11/14/2022 4:41:55 PM Ordering Provider: MARK KUMAR [facility] 11-14-2022 Note SINUS RHYTHM Electronic Signature: JAYJAY ALVES MD 11/14/2022 10:32:16 [facility] 05-06-2022 Hospital Discharge instructions Patient Education 05/06/2022 20:59:14 Dental Abscess Dental Abscess An abscess is a sac of pus. A dental abscess forms when a tooth or the tissue around it becomes infected with bacteria. The bacteria can enter through a cavity or a crack in a tooth. It can also infect the gum tissue or bone around a tooth. An untreated abscess can cause the loss of the tooth. It can even spread to other parts of the body and become life-threatening. Symptoms of a dental abscess Signs of a dental abscess include: Toothache, often severe Tooth pain with hot, cold, or pressure Pain in the gums, cheek, or jaw Bad breath or bitter taste in the mouth Trouble swallowing or opening the mouth Fever Swollen or enlarged glands in the neck Diagnosing a dental abscess An abscess is diagnosed by looking at your teeth and gums. You will be told if any tests are needed, such as dental X-rays. Treating a dental abscess Treatments for a dental abscess may include the following: Antibiotic medicines. These treat the underlying infection. Pain relievers. These help you feel more comfortable. Your healthcare provider may prescribe a medicine for you. Or you may use szeg-hcu-zapcwlg pain relievers, such as acetaminophen or ibuprofen. Warm saltwater rinses. These can soothe discomfort and help clear away pus. Root canal surgery. This may be done if needed to save the tooth. With a root canal, the infected part of the tooth is removed. A special substance is then used to fill the empty space in the tooth. Draining the abscess. This may be doneif needed. Incisions are made to allow the infected material to drain from the tooth. Removing the tooth. This is done in cases of severe infection that can t be treated another way. You may need to be admitted to a hospital if the infection is severe, has spread, or doesn t respond to treatment. When to call the dentist Call your dentist right away if you have any of the following: Fever of 100.4 F (38 C) or higher Increased pain, redness, drainage, or swelling in the treated area Swelling of the face or jawbone Pain that can't be controlled with medicines Preventing dental abscess To prevent another abscess in the future, keep your teeth clean and healthy. [place] twice a day and floss at least once daily. See your dentist for regular tooth cleanings. And stay away from sugary foods and drinks that can lead to tooth decay. [id number] [employer]. [address] [place] [address], [place] [address]. All rights reserved. This information is not intended as a substitute for professional medical care. Always follow your healthcare professional's instructions. Follow Up Care 05/06/2022 20:16:29 With:your dentist Address: When:2-4 days With:[facility] Address: [address] [place] [phone] When:2-4 days [facility] 05-06-2022 Emergency department Discharge summary Discharge Instructions Thank you for allowing [facility] to assist you with your healthcare needs. The following is important discharge information regarding your hospital visit. Diagnosis from Today's Visit Dental abscess Dental pain What to Do Next Instructions from Your Care Team Discharge Return to Work, School, or Sports (Return to Work, School, or Sports) - Ordered -- May return to: work, Off work 05/06/2022 and 05/07/2022. May return 05/08/2022., 05/06/22 20:59:00 EDT Post Acute Orders No qualifying data available. You Need to Schedule the Following Appointments Follow Up with your dentist When Within 2-4 days Where: Follow Up with [facility] When Within 2-4 days Where: [address] [place] [phone] Allergies NKA Medications Please ask your primary doctor or pharmacist before taking any other medication not listed, including over the counter drugs, herbal medications, vitamins and or supplements as they may interact with your home medications. What How Much When Why Instructions Last Dose New penicillin V potassium (penicillin V potassium 500 mg oral tablet) 1 tab(s) by mouth Four (4) times a day Dental abscess Duration: 10 Days Printed Prescription Unchanged ARIPiprazole (ARIPiprazole 5 mg oral tablet) 1 tab(s) by mouth Every day Unchanged buPROPion (buPROPion 300 mg/ 24 hours (XL) oral tablet, extended release) 1 tab(s) by mouth Once a day Unchanged dicyclomine (Bentyl use dicyclomine ) 20 Milligram by mouth Four (4) times a day Duration: 7 Days Unchanged docusate (Colace 100 mg oral capsule) 1 cap by mouth Two (2) times a day Unchanged docusate (Colace 100 mg oral capsule) 1 cap by mouth Two (2) times a day as needed for as needed for constipation Duration: 30 Days Unchanged famotidine (Pepcid 20 mg oral tablet) 1 tab(s) by mouth Two (2) times a day Unchanged ibuprofen (ibuprofen 600 mg oral tablet) 1 tab(s) by mouth Every 6 hours Take with food or milk. Unchanged multivitamin, ( Multivitamins with Folic Acid 1 mg oral tablet) 1 tab(s) by mouth Every day Please take this list to your next doctor s visit. Bring all medications you take, including over the counter medications, herbals and other supplements with you to your doctor s visit. Patients and families are reminded to discard old lists and to update any records with all medication providers or retail pharmacies. Education Materials Dental Abscess An abscess is a sac of pus. A dental abscess forms when a tooth or the tissue around it becomes infected with bacteria. The bacteria can enter through a cavity or a crack in a tooth. It can also infect the gum tissue or bone around a tooth. An untreated abscess can cause the loss of the tooth. It can even spread to other parts of the body and become life-threatening. Symptoms of a dental abscess Signs of a dental abscess include: Toothache, often severe Tooth pain with hot, cold, or pressure Pain in the gums, cheek, or jaw Bad breath or bitter taste in the mouth Trouble swallowing or opening the mouth Fever Swollen or enlarged glands in the neck Diagnosing a dental abscess An abscess is diagnosed by looking at your teeth and gums. You will be told if any tests are needed, such as dental X-rays. Treating a dental abscess Treatments for a dental abscess may include the following: Antibiotic medicines. These treat the underlying infection. Pain relievers. These help you feel more comfortable. Your healthcare provider may prescribe a medicine for you. Or you may use ypwm-lko-fmnpkxi pain relievers, such as acetaminophen or ibuprofen. Warm saltwater rinses. These can soothe discomfort and help clear away pus. Root canal surgery. This may be done if needed to save the tooth. With a root canal, the infected part of the tooth is removed. A special substance is then used to fill the empty space in the tooth. Draining the abscess. This may be doneif needed. Incisions are made to allow the infected material to drain from the tooth. Removing the tooth. This is done in cases of severe infection that can t be treated another way. You may need to be admitted to a hospital if the infection is severe, has spread, or doesn t respond to treatment. When to call the dentist Call your dentist right away if you have any of the following: Fever of 100.4 F (38 C) or higher Increased pain, redness, drainage, or swelling in the treated area Swelling of the face or jawbone Pain that can't be controlled with medicines Preventing dental abscess To prevent another abscess in the future, keep your teeth clean and healthy. [place] twice a day and floss at least once daily. See your dentist for regular tooth cleanings. And stay away from sugary foods and drinks that can lead to tooth decay. [id number] [employer]. [address] [place] [address], [place] [address]. All rights reserved. This information is not intended as a substitute for professional medical care. Always follow your healthcare professional's instructions. Additional Information VACCINATE! IT SAVES LIVES! Members of the community who have not yet received the COVID-19 vaccine and would like to receive it can visit one of [facility] vaccine clinics. There are many vaccine clinic locations within the [facility]. For locations and available times, please visit [email or web address] It is important to note that some COVID mobile vaccine clinics are held outdoors and may be canceled in rainy or stormy conditions. To learn more about pediatric vaccinations (ages 5-11), we invite you to visit the [facility] webpage. [email or web address] To learn more about the COVID-19 vaccine, we invite you to visit the CDC website for a list of frequently asked questions. https://www.cdc.gov/coronavirus/2019-ncov/vaccin es/faq.html AlertMe Patient Portal Access Instructions: Stay connected with your healthcare team and access your personal medical information anytime with the [facility] Patient Portal. If you would like a full copy of your medical records please contact the [facility] Medical Records Department Sunday through Sunday between 8a.m. and 4:30p.m. Please follow the directions below to access the portal: 1.Access the email account you provided upon registration to the [facility].2.Look for an invitation email from [facility].3.Open the email and access the invitation link: Accept Invitation to [facility]4.Fill in the required adame to create your account. Sign into [email or web address] with your username and password that you created in the above steps to stay up to date. You can then view a summary of results, a summary of your visits, and the ability to download your summaries to your computer or send the information securely to a physician. Remember that your healthcare information is confidential, so carefully consider who you will allow to register on the [facility] Patient Portal for access to your information. You can also access the [facility] Patient Portal on the [employer] cinthya. Simply click on Health Records under Health Data and then click on the Backspaces logo. HOW TO SAFELY DISPOSE OF PRESCRIPTION MEDICATIONS Please use one of the following methods to safely dispose of your unused medications. 1.Use a drug disposal kit: the drug disposal pouch allows you to safely discard your old and unused drugs. Ask your nurse to give you one when you are discharged.2.Visit a local take-back location: Many local pharmacies and police departments have programs that collect old and unwanted prescription drugs. Call your local pharmacy or go to http://Vir2us.[employer]/9X0Pt5k to find one close to you.3.Make use of household items: Use cat litter or old coffee grounds to dispose medications if other options are not available. Mix your drugs with these household products, seal them in an airtight container and throw it into the garbage. Call [facility]: [phone] to be sure your drugs can be disposed of in this way. Some medicines may require a different approach.4.Never flush your medications down the toilet. IF YOU HAVE BEEN PRESCRIBED AN OPIOIDS FOR PAIN If you have been prescribed an opioid (such as hydrocodone, oxycodone or morphine), it is critical to understand the possible side effects and risks of opioid pain medications. Even when taken as directed, opioids can have several side effects including: Tolerance, meaning you might need to take more of a medication for the same pain relief. Nausea, vomiting and/or constipation. Sleepiness, dizziness, dry mouth, confusion, depression or itching. Physical dependence, meaning you have withdrawal symptoms when a medication is stopped ? this can develop within a few days. KNOW YOUR RESPONSIBILITIES It is important to know exactly how much and how often to take the opioid pain medications you are prescribed. Never take opioids in higher amounts or more often than prescribed. Do not combine opioids with alcohol or other drugs that cause drowsiness, such as benzodiazepines, also known as benzos, including diazepam and alprazolam, muscle relaxants or sleep aids. Never sell or share prescription opioids. This is illegal. Store opioids in a secure place and out of reach of others (including children, family, friends and visitors). The last page(s) of this document has been signed and retained as a CHART COPY Signatures Patient Education Materials Dental Abscess Medication Leaflets My discharge plan and instructions have been reviewed and explained to me and I,RONNA AGUAYO understand my current condition and have read and understand these discharge instructions. I have received a written copy of the plan/instructions. If I have questions, I am aware that I should contact my doctor. Patient/Field Representative/Health Education Signature: Date/Time: Relationship to Patient: Witness Name/Signature: Date/Time: [facility] 04-16-2022 Note HNO ID: [id number] Author: Nishi Munoz, DO Service: ? Author Type: Physician Type: Progress Notes Filed: 04/16/2022 11:57 AM Note Text: Ronna Aguayo is a 26 year old FEMALE who presents with Sinusitis (Left side tooth pain head aches--1 week) HPI History reviewed. No pertinent past medical history. ACTIVE PROBLEM LIST Intractable Epilepsy (Hcc) Seizure Disorder (Hcc) Current Outpatient Medications Medication Sig Dispense Refill ARIPiprazole (ABILIFY) 10 mg tablet buPROPion XL (WELLBUTRIN XL) 150 mg 24 hr tablet ondansetron orally disintegrating (ZOFRAN ODT) 4 mg disintegrating tablet Take 1 tablet by mouth every 6 hours as needed for Nausea/Vomiting. 12 tablet 0 amoxicillin (AMOXIL) 875 mg tablet Take 1 tablet by mouth twice daily for 10 days. 20 tablet 0 meloxicam (MOBIC) 15 mg tablet Take 1 tablet by mouth once daily. 30 tablet 0 levETIRAcetam (KEPPRA) 250 mg tablet Take 1 tablet by mouth twice daily. (Patient not taking: Reported on 04/16/2022) 60 tablet 1 pimecrolimus(ELIDEL 1 % TOPICAL CREAM) (Patient not taking: Reported on 04/16/2022) 0 montelukast sodium(SINGULAIR 5 MG CHEWABLE TAB) Take one(1) tablet daily at bedtime. (Patient not taking: Reported on 04/16/2022) 0 No current facility-administered medications for this visit. Social History Tobacco Use Smoking status: Every Day Packs/day: 0.25 Years: 1.00 Pack years: 0.25 Types: Cigarettes Smokeless tobacco: Never Substance Use Topics Alcohol use: No Drug use: No Alcohol Use: No Tobacco Use: 0.25 packs/day, for 1 years. Types: Cigarettes FAMILY HISTORY Adopted: Yes ROS BP 121/67 Pulse 80 Temp 98 Resp 16 Wt 114 lb (51.7kg) SpO2 100% LMP 04/16/2022 Physical Exam Vitals and nursing note reviewed. HENT: Mouth/Throat: Comments: The patient has fractured and carious teeth #1314 and #18. These seem to be giving her the pain if you tap on these teeth it radiates up into the sinuses the sinuses themselves are clear no evidence of any infection. Teeth are in moderate repair. The patient did call a dentist but that it was 2 months until she can get and that the reason she came here. She also missed her shift at [employer] because the heat and [employer] was making her teeth hurt worse so she wants a slip to be off today and tomorrow from [employer]. And she was given that. Patient will be placed on amoxicillin she is to finish the course she was also given meloxicam once a day for 30 days to help with the discomfort and she is to persist in trying to get into a dentist I explained to her that that is the ultimate treatment what were doing here is just a temporary fix she states she understands and is this dictation. ASSESSMENT/PLAN: 1. Odontalgia - ICD9: 525.9, ICD10: K08.89 - AMOXICILLIN 875 MG TABLET - MELOXICAM 15 MG TABLET Nishi D Munoz [facility] 04-16-2022 Miscellaneous Notes Addended by: NISHI MUNOZ on: 04/16/2022 12:10 PM Modules accepted: Orders documented in this encounter [facility] 04-16-2022 History of Present illness Narrative Formatting of this note is different fro m the original. Images from the original note were not included. Ronna Aguayo is a 26 year old FEMALE who presents with Sinusitis (Left side tooth pain head aches--1 week) HPI History reviewed. No pertinent past medical history. ACTIVE PROBLEM LIST Intractable Epilepsy (Hcc) Seizure Disorder (Hcc) Current Outpatient Medications Medication Sig Dispense Refill ARIPiprazole (ABILIFY) 10 mg tablet buPROPion XL (WELLBUTRIN XL) 150 mg 24 hr tablet ondansetron orally disintegrating (ZOFRAN ODT) 4 mg disintegrating tablet Take 1 tablet by mouth every 6 hours as needed for Nausea/Vomiting. 12 tablet 0 amoxicillin (AMOXIL) 875 mg tablet Take 1 tablet by mouth twice daily for 10 days. 20 tablet 0 meloxicam (MOBIC) 15 mg tablet Take 1 tablet by mouth once daily. 30 tablet 0 levETIRAcetam (KEPPRA) 250 mg tablet Take 1 tablet by mouth twice daily. (Patient not taking: Reported on 04/16/2022) 60 tablet 1 pimecrolimus(ELIDEL 1 % TOPICAL CREAM) (Patient not taking: Reported on 04/16/2022) 0 montelukast sodium(SINGULAIR 5 MG CHEWABLE TAB) Take one(1) tablet daily at bedtime. (Patient not taking: Reported on 04/16/2022) 0 No current facility-administered medications for this visit. Social History Tobacco Use Smoking status: Every Day Packs/day: 0.25 Years: 1.00 Pack years: 0.25 Types: Cigarettes Smokeless tobacco: Never Substance Use Topics Alcohol use: No Drug use: No Alcohol Use: No Tobacco Use: 0.25 packs/day, for 1 years. Types: Cigarettes FAMILY HISTORY Adopted: Yes ROS BP 121/67 Pulse 80 Temp 98 Resp 16 Wt 114 lb (51.7kg) SpO2 100% LMP 04/16/2022 Physical Exam Vitals and nursing note reviewed. HENT: Mouth/Throat: Comments: The patient has fractured and carious teeth #1314 and #18. These seem to be giving her the pain if you tap on these teeth it radiates up into the sinuses the sinuses themselves are clear no evidence of any infection. Teeth are in moderate repair. The patient did call a dentist but that it was 2 months until she can get and that the reason she came here. She also missed her shift at [employer] because the heat and [employer] was making her teeth hurt worse so she wants a slip to be off today and tomorrow from [employer]. And she was given that. Patient will be placed on amoxicillin she is to finish the course she was also given meloxicam once a day for 30 days to help with the discomfort and she is to persist in trying to get into a dentist I explained to her that that is the ultimate treatment what were doing here is just a temporary fix she states she understands and is this dictation. ASSESSMENT/PLAN: 1. Odontalgia - ICD9: 525.9, ICD10: K08.89 - AMOXICILLIN 875 MG TABLET - MELOXICAM 15 MG TABLET Nishi Munoz documented in this encounter [facility] 02-24-2022 Hospital Discharge instructions Patient Education 02/24/2022 14:13:21 Gastritis (Adult) Gastritis (Adult) Gastritis is inflammation and irritation of the stomach lining. You can have it for a short time (acute) or be long lasting (chronic). Infection with bacteria called H pylori most often causes gastritis. More than a third of people in the [place] have these bacteria in their bodies. In many cases, H pylori causes no problems or symptoms. In some people, though, the infection irritates the stomach lining and causes gastritis. H. pylori may be diagnosed through blood, stool, or breath tests, we well as through biopsy during an endoscopy. Other causes of stomach irritation include drinking alcohol, smoking or chewing tobacco, or taking pain-relieving medicines called NSAIDs (such as aspirin or ibuprofen). Certain drugs (such as cocaine) and immune conditions can also cause gastritis. Symptoms of gastritis can include: Belly pain or bloating Feeling full quickly Loss of appetite Nausea or vomiting Vomiting blood or having black stools Feeling more tired than usual An inflamed and irritated stomach lining is more likely to develop a sore called an ulcer. To help prevent this, gastritis should be treated. Home care If needed, our healthcare provider may prescribe medicines. If you have H pylori infection, treating it will likely relieve your symptoms. Other changes can help reduce stomach irritation and help it heal. If you have been prescribed medicines for H pylori infection, take them as directed. Take all of the medicine until it is finished or your healthcare provider tells you to stop, even if you feel better. Your healthcare provider may advise you not to take NSAIDs. If you take daily aspirin for your heart or other medical reasons, do not stop without talking to your healthcare provider first. Don't drink alcohol. Stop smoking. Smoking can irritate the stomach and delay healing. As much as possible, stay away from second hand smoke. Follow-up care Follow up with your healthcare provider, or as advised by our staff. You may need testing to check for inflammation or an ulcer. When to seek medical advice Call your healthcare provider for any of the following: Stomach pain that gets worse or moves to the lower right belly (appendix area) Chest pain that appears or gets worse, or spreads to the back, neck, shoulder, or arm Frequent vomiting (can t keep down liquids) Blood in the stool or vomit (red or black in color) Feeling weak or dizzy Shortness of breath Unexplained weight loss Fever of 100.4 F (38 C) or higher, or as directed by your healthcare provider [id number] [employer]. [address] [place] [address]. All rights reserved. This information is not intended as a substitute for professional medical care. Always follow your healthcare professional's instructions. 02/24/2022 14:13:00 Diet, [place] (Adult) [place] Diet Your healthcare provider may recommend a bland diet if you have an upset stomach. It consists of foods that are mild and easy to digest. It is better to eat small frequent meals rather than 3 large meals a day. Beverages OK: Fruit juices, non-caffeinated teas and coffee, non-carbonated montaño Avoid: Carbonated beverage, caffeinated tea and coffee, all alcoholic beverages Bread OK: Refined white, wheat or rye bread, mckenzie or soda crackers, [place] toast, plain rolls, bagels Avoid: Whole-grain bread Cereal OK: Refined cereals: cooked or ready to eat Avoid: Whole-grain cereals and granola, or those containing bran, seeds or nuts Desserts OK: Peanut butter and all others except those to avoid Avoid: Chocolate, cocoa, coconut, popcorn, nuts, seeds, jam, marmalade Fruits OK: Canned, cooked, frozen or fresh fruits without seeds or tough skin Avoid: Olives, skin and seeds of fruit, dried fruit Meats OK: All fresh or preserved meat, fish and fowl Avoid: Any that are prepared with those spices to avoid Cheese and eggs OK: Eggs, cottage cheese, cream cheese, other cheeses Avoid: All cheeses made with those spices to avoid Potatoes and pasta OK: Potato, rice, macaroni, noodles, spaghetti Avoid: None Soups OK: All soups without heavy seasoning Avoid: Soups made with those spices to avoid Vegetables OK: Canned, cooked, fresh or frozen mildly flavored vegetables without seeds, skins or coarse fiber Avoid: Vegetables prepared with those spices to avoid; skin and seeds of vegetables and those with coarse fiber, broccoli, cabbage, cauliflower, cucumber, green peppers, and corn Spices OK: Salt, lemon and limejuice, vinegar, all extracts, rizwan, cinnamon, thyme, mace, allspice, paprika Avoid: [place] powder, cloves, pepper, seed spices, garlic, gravy pickles, highly seasoned salad dressings [id number] [employer] [place] [address]. All rights reserved. This information is not intended as a substitute for professional medical care. Always follow your healthcare professional's instructions. Follow Up Care 02/24/2022 11:01:50 With:[facility] Address: [address] [place] [phone] When:2-4 days [facility] 02-24-2022 Emergency department Discharge summary Discharge Instructions Thank you for allowing [facility] to assist you with your healthcare needs. The following is important discharge information regarding your hospital visit. Diagnosis from Today's Visit Colitis Viral colitis Abdominal pain What to Do Next Instructions from Your Care Team No qualifying data available. Post Acute Orders No qualifying data available. You Need to Schedule the Following Appointments Follow Up with [facility] When Within 2-4 days Where: [address] [place] [phone] Allergies NKA Medications Please ask your primary doctor or pharmacist before taking any other medication not listed, including over the counter drugs, herbal medications, vitamins and or supplements as they may interact with your home medications. What How Much When Instructions Last Dose New metroNIDAZOLE (metroNIDAZOLE 500 mg oral tablet) 1 tab(s) by mouth Two (2) times a day Duration: 7 Days Printed Prescription New ondansetron (ondansetron 4 mg oral tablet) 1 tab(s) by mouth Every 6 hours Duration: 2 Days Printed Prescription New polyethylene glycol 3350 (MiraLax oral powder for reconstitution) 17 gram(s) by mouth Every day Duration: 30 Days Printed Prescription Changed docusate (Colace 100 mg oral capsule) 1 cap by mouth Two (2) times a day Printed Prescription Changed docusate (Colace 100 mg oral capsule) 1 cap by mouth Two (2) times a day as needed for as needed for constipation Duration: 30 Days Unchanged ARIPiprazole (ARIPiprazole 5 mg oral tablet) 1 tab(s) by mouth Every day Unchanged buPROPion (buPROPion 300 mg/ 24 hours (XL) oral tablet, extended release) 1 tab(s) by mouth Once a day Unchanged dicyclomine (Bentyl use dicyclomine ) 20 Milligram by mouth Four (4) times a day Duration: 7 Days Unchanged famotidine (Pepcid 20 mg oral tablet) 1 tab(s) by mouth Two (2) times a day Unchanged ibuprofen (ibuprofen 600 mg oral tablet) 1 tab(s) by mouth Every 6 hours Take with food or milk. Unchanged multivitamin, ( Multivitamins with Folic Acid 1 mg oral tablet) 1 tab(s) by mouth Every day Please take this list to your next doctor s visit. Bring all medications you take, including over the counter medications, herbals and other supplements with you to your doctor s visit. Patients and families are reminded to discard old lists and to update any records with all medication providers or retail pharmacies. Education Materials Gastritis (Adult) Gastritis is inflammation and irritation of the stomach lining. You can have it for a short time (acute) or be long lasting (chronic). Infection with bacteria called H pylori most often causes gastritis. More than a third of people in the [place] have these bacteria in their bodies. In many cases, H pylori causes no problems or symptoms. In some people, though, the infection irritates the stomach lining and causes gastritis. H. pylori may be diagnosed through blood, stool, or breath tests, we well as through biopsy during an endoscopy. Other causes of stomach irritation include drinking alcohol, smoking or chewing tobacco, or taking pain-relieving medicines called NSAIDs (such as aspirin or ibuprofen). Certain drugs (such as cocaine) and immune conditions can also cause gastritis. Symptoms of gastritis can include: Belly pain or bloating Feeling full quickly Loss of appetite Nausea or vomiting Vomiting blood or having black stools Feeling more tired than usual An inflamed and irritated stomach lining is more likely to develop a sore called an ulcer. To help prevent this, gastritis should be treated. Home care If needed, our healthcare provider may prescribe medicines. If you have H pylori infection, treating it will likely relieve your symptoms. Other changes can help reduce stomach irritation and help it heal. If you have been prescribed medicines for H pylori infection, take them as directed. Take all of the medicine until it is finished or your healthcare provider tells you to stop, even if you feel better. Your healthcare provider may advise you not to take NSAIDs. If you take daily aspirin for your heart or other medical reasons, do not stop without talking to your healthcare provider first. Don't drink alcohol. Stop smoking. Smoking can irritate the stomach and delay healing. As much as possible, stay away from second hand smoke. Follow-up care Follow up with your healthcare provider, or as advised by our staff. You may need testing to check for inflammation or an ulcer. When to seek medical advice Call your healthcare provider for any of the following: Stomach pain that gets worse or moves to the lower right belly (appendix area) Chest pain that appears or gets worse, or spreads to the back, neck, shoulder, or arm Frequent vomiting (can t keep down liquids) Blood in the stool or vomit (red or black in color) Feeling weak or dizzy Shortness of breath Unexplained weight loss Fever of 100.4 F (38 C) or higher, or as directed by your healthcare provider [phone] [employer]. [address] [place] [address], [place] [address]. All rights reserved. This information is not intended as a substitute for professional medical care. Always follow your healthcare professional's instructions. [place] Diet Your healthcare provider may recommend a bland diet if you have an upset stomach. It consists of foods that are mild and easy to digest. It is better to eat small frequent meals rather than 3 large meals a day. Beverages OK: Fruit juices, non-caffeinated teas and coffee, non-carbonated montaño Avoid: Carbonated beverage, caffeinated tea and coffee, all alcoholic beverages Bread OK: Refined white, wheat or rye bread, mckenzie or soda crackers, [place] toast, plain rolls, bagels Avoid: Whole-grain bread Cereal OK: Refined cereals: cooked or ready to eat Avoid: Whole-grain cereals and granola, or those containing bran, seeds or nuts Desserts OK: Peanut butter and all others except those to avoid Avoid: Chocolate, cocoa, coconut, popcorn, nuts, seeds, jam, marmalade Fruits OK: Canned, cooked, frozen or fresh fruits without seeds or tough skin Avoid: Olives, skin and seeds of fruit, dried fruit Meats OK: All fresh or preserved meat, fish and fowl Avoid: Any that are prepared with those spices to avoid Cheese and eggs OK: Eggs, cottage cheese, cream cheese, other cheeses Avoid: All cheeses made with those spices to avoid Potatoes and pasta OK: Potato, rice, macaroni, noodles, spaghetti Avoid: None Soups OK: All soups without heavy seasoning Avoid: Soups made with those spices to avoid Vegetables OK: Canned, cooked, fresh or frozen mildly flavored vegetables without seeds, skins or coarse fiber Avoid: Vegetables prepared with those spices to avoid; skin and seeds of vegetables and those with coarse fiber, broccoli, cabbage, cauliflower, cucumber, green peppers, and corn Spices OK: Salt, lemon and limejuice, vinegar, all extracts, rizwan, cinnamon, thyme, mace, allspice, paprika Avoid: [place] powder, cloves, pepper, seed spices, garlic, gravy pickles, highly seasoned salad dressings [id number] [employer]. [address] [place] [address], [place] [address]. All rights reserved. This information is not intended as a substitute for professional medical care. Always follow your healthcare professional's instructions. Additional Information VACCINATE! IT SAVES LIVES! Members of the community who have not yet received the COVID-19 vaccine and would like to receive it can visit one of [facility] vaccine clinics. There are many vaccine clinic locations within the [facility]. For locations and available times, please visit [email or web address]. It is important to note that some COVID mobile vaccine clinics are held outdoors and may be canceled in rainy or stormy conditions. To learn more about pediatric vaccinations (ages 5-11), we invite you to visit the [facility] webpage. [email or web address]/pages/2019-Novel- Gymqprsbimx-Fuergkayqa-Embwx-Questions.html To learn more about the COVID-19 vaccine, we invite you to visit the [facility] website for a list of frequently asked questions. [email or web address]-iab-[email or web address] /patwh-[email or web address]-[email or web address].pdf [facility] Patient Portal Access Instructions: Stay connected with your healthcare team and access your personal medical information anytime with the [facility] Patient Portal. If you would like a full copy of your medical records please contact the [facility] Medical Records Department Sunday through Sunday between 8a.m. and 4:30p.m. Please follow the directions below to access the portal: 1.Access the email account you provided upon registration to the hospital.2.Look for an invitation email from [facility].3.Open the email and access the invitation link: Accept Invitation to [facility]4.Fill in the required adame to create your account. Sign into [email or web address] with your username and password that you created in the above steps to stay up to date. You can then view a summary of results, a summary of your visits, and the ability to download your summaries to your computer or send the information securely to a physician. Remember that your healthcare information is confidential, so carefully consider who you will allow to register on the [facility] Patient Portal for access to your information. You can also access the [facility] Patient Portal on the [employer] cinthya. Simply click on Health Records under Health Data and then click on the Backspaces logo. HOW TO SAFELY DISPOSE OF PRESCRIPTION MEDICATIONS Please use one of the following methods to safely dispose of your unused medications. 1.Use a drug disposal kit: the drug disposal pouch allows you to safely discard your old and unused drugs. Ask your nurse to give you one when you are discharged.2.Visit a local take-back location: Many local pharmacies and police departments have programs that collect old and unwanted prescription drugs. Call your local pharmacy or go to http://Vir2us.[employer]pet[employer]/5J5Wp2z to find one close to you.3.Make use of household items: Use cat litter or old coffee grounds to dispose medications if other options are not available. Mix your drugs with these household products, seal them in an airtight container and throw it into the garbage. Call [facility]: [phone] to be sure your drugs can be disposed of in this way. Some medicines may require a different approach.4.Never flush your medications down the toilet. IF YOU HAVE BEEN PRESCRIBED AN OPIOIDS FOR PAIN If you have been prescribed an opioid (such as hydrocodone, oxycodone or morphine), it is critical to understand the possible side effects and risks of opioid pain medications. Even when taken as directed, opioids can have several side effects including: Tolerance, meaning you might need to take more of a medication for the same pain relief. Nausea, vomiting and/or constipation. Sleepiness, dizziness, dry mouth, confusion, depression or itching. Physical dependence, meaning you have withdrawal symptoms when a medication is stopped ? this can develop within a few days. KNOW YOUR RESPONSIBILITIES It is important to know exactly how much and how often to take the opioid pain medications you are prescribed. Never take opioids in higher amounts or more often than prescribed. Do not combine opioids with alcohol or other drugs that cause drowsiness, such as benzodiazepines, also known as benzos, including diazepam and alprazolam, muscle relaxants or sleep aids. Never sell or share prescription opioids. This is illegal. Store opioids in a secure place and out of reach of others (including children, family, friends and visitors). The last page(s) of this document has been signed and retained as a CHART COPY Signatures Patient Education Materials Gastritis (Adult) Diet, Gilpin (Adult) Medication Leaflets My discharge plan and instructions have been reviewed and explained to me and I,RONNA AGUAYO understand my current condition and have read and understand these discharge instructions. I have received a written copy of the plan/instructions. If I have questions, I am aware that I should contact my doctor. Patient/Field Representative/Health Education Signature: Date/Time: Relationship to Patient: Witness Name/Signature: Date/Time: [facility] 02-24-2022 Evaluation + Plan note Diagnostic Tests PendingUrine Culture 02/24/22 [facility] 02-24-2022 Note ORIGINAL HISTORY: No COMPARISON: No TECHNIQUE: CT of the Abdomen and Pelvis following uncomplicated administration of intravenous contrast, with sagittal and coronal reconstructions. This exam was performed according to our departmental dose optimization program, and includes the following measures where applicable: automated exposure control, adjustment of the mAs and/or kVp according to patient size and/or exam, and an iterative reconstruction algorithm. FINDINGS: There is mild periportal edema in the inferior liver. The remaining abdominal organs are unremarkable in appearance. Bowel is poorly evaluated in the absence of oral contrast. There is questionable faint infiltration around the ascending colon. the appendix is partly visualized and is normal in caliber. No associated inflammatory changes are seen. The uterus is prominent but otherwise unremarkable. There is no free fluid. IMPRESSION: Questionable mild inflammatory changes around the right colon, at most mildly suggestive of colitis. Mild periportal edema. This has a broad differential diagnosis including inflammation, fluid status, trauma, etc.. Interpreted by: Philip Stafford MD Preliminary Report By: Philip Stafford MD Electronically signed By Philip Stafford MD Dictated Date: 02/24/2022 1:28:04 PM Prelim Date: 02/24/2022 1:32:37 PM Sign Date: 02/24/2022 1:32:37 PM Ordering Provider: [facility] 02-24-2022 Note ORIGINAL HISTORY: No COMPARISON: No TECHNIQUE: CT of the Abdomen and Pelvis following uncomplicated administration of intravenous contrast, with sagittal and coronal reconstructions. This exam was performed according to our departmental dose optimization program, and includes the following measures where applicable: automated exposure control, adjustment of the mAs and/or kVp according to patient size and/or exam, and an iterative reconstruction algorithm. FINDINGS: There is mild periportal edema in the inferior liver. The remaining abdominal organs are unremarkable in appearance. Bowel is poorly evaluated in the absence of oral contrast. There is questionable faint infiltration around the ascending colon. the appendix is partly visualized and is normal in caliber. No associated inflammatory changes are seen. The uterus is prominent but otherwise unremarkable. There is no free fluid. IMPRESSION: Questionable mild inflammatory changes around the right colon, at most mildly suggestive of colitis. Mild periportal edema. This has a broad differential diagnosis including inflammation, fluid status, trauma, etc.. Interpreted by: Philip Stafford MD Preliminary Report By: Philip Stafford MD Electronically signed By Philip Stafford MD Dictated Date: 02/24/2022 1:28:04 PM Prelim Date: 02/24/2022 1:32:37 PM Sign Date: 02/24/2022 1:32:37 PM Ordering Provider: [facility] 02-13-2022 Hospital Discharge instructions Patient Education 02/13/2022 11:52:04 Wrist Splint, Velcro Wrist Splint: Velcro A splint is designed to prevent movement of the bones, muscles and tendons. Velcro wrist splints are used because of their comfort and convenience for wrist and hand injuries. In certain conditions, the splint can be removed when bathing or changing clothes. The condition you are being treated for will determine how long you should wear the splint and if it is safe to remove your splint before your next visit. If you are unsure, ask your nurse or doctor. When to seek medical advice Call your healthcare provider right away if any of these occur: Increased pain or swelling under the splint or in the hand or fingers Fingers or hand becomes cold, blue, numb or tingly [id number] [employer]. [address] [place] [address]. All rights reserved. This information is not intended as a substitute for professional medical care. Always follow your healthcare professional's instructions. 02/13/2022 11:52:02 Wrist Sprain Wrist Sprain A sprain is an injury to the ligaments or capsule that holds a joint together. There are no broken bones. Most sprains take about 3 to 6 weeks to heal. If it a severe sprain where the ligament is completely torn, it can take months to recover. Most wrist sprains are treated with a splint, wrist brace, or elastic wrap for support. Severe sprains may require surgery. Home care Keep your arm elevated to reduce pain and swelling. This is very important during the first 48 hours. Apply an ice pack over the injured area for 15 to 20 minutes every 3 to 6 hours. You should do this for the first 24 to 48 hours. You can make an ice pack by filling a plastic bag that seals at the top with ice cubes and then wrapping it with a thin towel. Continue to use ice packs for relief of pain and swelling as needed. As the ice melts, be careful to avoid getting your wrap, splint, or cast wet. After 48 hours, apply heat (warm shower or warm bath) for 15 to 20 minutes several times a day, or alternate ice and heat. You may use xgmq-hot-hmcgnby pain medicine to control pain, unless another pain medicine was prescribed. If you have chronic liver or kidney disease or ever had a stomach ulcer or gastrointestinal bleeding, talk with your doctor before using these medicines. If you were given a splint or brace, wear it for the time advised by your doctor. Follow-up care Follow up with your healthcare provider, or as advised. Any X-rays you had today don t show any broken bones, breaks, or fractures. Sometimes fractures don t show up on the first X-ray. Bruises and sprains can sometimes hurt as much as a fracture. These injuries can take time to heal completely. If your symptoms don t improve or they get worse, talk with your doctor. You may need a repeat X-ray. If X-rays were taken, you will be told of any new findings that may affect your care. When to seek medical advice Call your healthcare provider right away if any of these occur: Pain or swelling increases Fingers or hand becomes cold, blue, numb, or tingly [employer]. [address] [place] [address]. All rights reserved. This information is not intended as a substitute for professional medical care. Always follow your healthcare professional's instructions. 02/13/2022 11:51:49 Hand and Wrist Exercises: Forearm Clearance Rep and Wrist Exercises: Forearm Roll This exercise is designed to stretch and strengthen your hands and wrists. Before beginning, read through all the instructions. While exercising, breathe normally. If you feel any pain, stop the exercise. If pain persists, inform your healthcare provider. Grasp a hammer or hand weight in your hand. Place your wrist, palm down, over the end of your knee or on the edge of a table. Keeping your forearm against your thigh or a table, rotate your hand until your palm is up. Hold for seconds. Then return to starting position. Repeat times. Do sets a day. [employer]. [address] [place] [address]. All rights reserved. This information is not intended as a substitute for professional medical care. Always follow your healthcare professional's instructions. Follow Up Care 02/13/2022 09:33:08 With:[facility] Address: [address] [place] [address] [address] [address] [place] [address] Business (1) When:2-4 days With:[facility] Address: [address] [place] [phone] Business (1) When:2-4 days Comments:Return to ED if symptoms worsen [facility] 02-13-2022 Emergency department Discharge summary Discharge Instructions Thank you for allowing [facility] to assist you with your healthcare needs. The following is important discharge information regarding your hospital visit. Diagnosis from Today's Visit Wrist sprain Wrist pain-swelling What to Do Next Instructions from Your Care Team No qualifying data available. Post Acute Orders No qualifying data available. You Need to Schedule the Following Appointments Follow Up with [facility] When Within 2-4 days Where: [address] [address] [place] [address] Business (1) Follow Up with [facility] When Within 2-4 days Why: Return to ED if symptoms worsen Where: [address] [place] [address]- [phone] Business (1) Allergies [facility] Medications Please ask your primary doctor or pharmacist before taking any other medication not listed, including over the counter drugs, herbal medications, vitamins and or supplements as they may interact with your home medications. What How Much When Why Instructions Last Dose New naproxen (naproxen 500 mg oral tablet) 1 tab(s) by mouth Two (2) times a day Wrist sprain Duration: 7 Days Printed Prescription Unchanged dicyclomine (Bentyl use dicyclomine ) 20 Milligram by mouth Four (4) times a day Duration: 7 Days Unchanged docusate (Colace 100 mg oral capsule) 1 cap by mouth Two (2) times a day as needed for as needed for constipation Duration: 30 Days Unchanged famotidine (Pepcid 20 mg oral tablet) 1 tab(s) by mouth Two (2) times a day Unchanged ibuprofen (ibuprofen 600 mg oral tablet) 1 tab(s) by mouth Every 6 hours Take with food or milk. Unchanged multivitamin, ( Multivitamins with Folic Acid 1 mg oral tablet) 1 tab(s) by mouth Every day Please take this list to your next doctor s visit. Bring all medications you take, including over the counter medications, herbals and other supplements with you to your doctor s visit. Patients and families are reminded to discard old lists and to update any records with all medication providers or retail pharmacies. Education Materials Wrist Splint: Velcro A splint is designed to prevent movement of the bones, muscles and tendons. Velcro wrist splints are used because of their comfort and convenience for wrist and hand injuries. In certain conditions, the splint can be removed when bathing or changing clothes. The condition you are being treated for will determine how long you should wear the splint and if it is safe to remove your splint before your next visit. If you are unsure, ask your nurse or doctor. When to seek medical advice Call your healthcare provider right away if any of these occur: Increased pain or swelling under the splint or in the hand or fingers Fingers or hand becomes cold, blue, numb or tingly [phone] [employer] [place] [address]. All rights reserved. This information is not intended as a substitute for professional medical care. Always follow your healthcare professional's instructions. Wrist Sprain A sprain is an injury to the ligaments or capsule that holds a joint together. There are no broken bones. Most sprains take about 3 to 6 weeks to heal. If it a severe sprain where the ligament is completely torn, it can take months to recover. Most wrist sprains are treated with a splint, wrist brace, or elastic wrap for support. Severe sprains may require surgery. Home care Keep your arm elevated to reduce pain and swelling. This is very important during the first 48 hours. Apply an ice pack over the injured area for 15 to 20 minutes every 3 to 6 hours. You should do this for the first 24 to 48 hours. You can make an ice pack by filling a plastic bag that seals at the top with ice cubes and then wrapping it with a thin towel. Continue to use ice packs for relief of pain and swelling as needed. As the ice melts, be careful to avoid getting your wrap, splint, or cast wet. After 48 hours, apply heat (warm shower or warm bath) for 15 to 20 minutes several times a day, or alternate ice and heat. You may use ylhk-lyj-euuhtmx pain medicine to control pain, unless another pain medicine was prescribed. If you have chronic liver or kidney disease or ever had a stomach ulcer or gastrointestinal bleeding, talk with your doctor before using these medicines. If you were given a splint or brace, wear it for the time advised by your doctor. Follow-up care Follow up with your healthcare provider, or as advised. Any X-rays you had today don t show any broken bones, breaks, or fractures. Sometimes fractures don t show up on the first X-ray. Bruises and sprains can sometimes hurt as much as a fracture. These injuries can take time to heal completely. If your symptoms don t improve or they get worse, talk with your doctor. You may need a repeat X-ray. If X-rays were taken, you will be told of any new findings that may affect your care. When to seek medical advice Call your healthcare provider right away if any of these occur: Pain or swelling increases Fingers or hand becomes cold, blue, numb, or tingly [employer]. [address] [place] [address]. All rights reserved. This information is not intended as a substitute for professional medical care. Always follow your healthcare professional's instructions. Hand and Wrist Exercises: Forearm Roll This exercise is designed to stretch and strengthen your hands and wrists. Before beginning, read through all the instructions. While exercising, breathe normally. If you feel any pain, stop the exercise. If pain persists, inform your healthcare provider. Grasp a hammer or hand weight in your hand. Place your wrist, palm down, over the end of your knee or on the edge of a table. Keeping your forearm against your thigh or a table, rotate your hand until your palm is up. Hold for seconds. Then return to starting position. Repeat times. Do sets a day. [employer]. [address] [place] [address]. All rights reserved. This information is not intended as a substitute for professional medical care. Always follow your healthcare professional's instructions. Additional Information VACCINATE! IT SAVES LIVES! Members of the community who have not yet received the COVID-19 vaccine and would like to receive it can visit one of [facility] vaccine clinics. There are many vaccine clinic locations within the [facility]. For locations and available times, please visit [email or web address]. It is important to note that some COVID mobile vaccine clinics are held outdoors and may be canceled in rainy or stormy conditions. To learn more about pediatric vaccinations (ages 5-11), we invite you to visit the [facility] webpage. https://www.[email or web address]/pages/2019-Novel- Nwfefgebait-Jmatdpowaw-Kunym-Questions.html To learn more about the COVID-19 vaccine, we invite you to visit the [facility] website for a list of frequently asked questions. [email or web address] [email or web address]/Jgejggdt-iet-Cjppfphi /jkqrc-[email or web address].pdf [facility] Patient Portal Access Instructions: Stay connected with your healthcare team and access your personal medical information anytime with the [facility] Patient Portal. If you would like a full copy of your medical records please contact the [facility] Medical Records Department Sunday through Sunday between 8a.m. and 4:30p.m. Please follow the directions below to access the portal: 1.Access the email account you provided upon registration to the [facility].2.Look for an invitation email from [facility].3.Open the email and access the invitation link: Accept Invitation to [facility]4.Fill in the required adame to create your account. Sign into www.[email or web address] International with your username and password that you created in the above steps to stay up to date. You can then view a summary of results, a summary of your visits, and the ability to download your summaries to your computer or send the information securely to a physician. Remember that your healthcare information is confidential, so carefully consider who you will allow to register on the [facility] Patient Portal for access to your information. You can also access the [facility] Patient Portal on the Me[employer] Ticket cinthya. Simply click on Health Records under Health Data and then click on the [employer] logo. HOW TO SAFELY DISPOSE OF PRESCRIPTION MEDICATIONS Please use one of the following methods to safely dispose of your unused medications. 1.Use a drug disposal kit: the drug disposal pouch allows you to safely discard your old and unused drugs. Ask your nurse to give you one when you are discharged.2.Visit a local take-back location: Many local pharmacies and police departments have programs that collect old and unwanted prescription drugs. Call your local pharmacy or go to http://bit.Perpetual [employer]/4R2Ji4h to find one close to you.3.Make use of household items: Use cat litter or old coffee grounds to dispose medications if other options are not available. Mix your drugs with these household products, seal them in an airtight container and throw it into the garbage. Call [facility]: [phone] to be sure your drugs can be disposed of in this way. Some medicines may require a different approach.4.Never flush your medications down the toilet. IF YOU HAVE BEEN PRESCRIBED AN OPIOIDS FOR PAIN If you have been prescribed an opioid (such as hydrocodone, oxycodone or morphine), it is critical to understand the possible side effects and risks of opioid pain medications. Even when taken as directed, opioids can have several side effects including: Tolerance, meaning you might need to take more of a medication for the same pain relief. Nausea, vomiting and/or constipation. Sleepiness, dizziness, dry mouth, confusion, depression or itching. Physical dependence, meaning you have withdrawal symptoms when a medication is stopped ? this can develop within a few days. KNOW YOUR RESPONSIBILITIES It is important to know exactly how much and how often to take the opioid pain medications you are prescribed. Never take opioids in higher amounts or more often than prescribed. Do not combine opioids with alcohol or other drugs that cause drowsiness, such as benzodiazepines, also known as benzos, including diazepam and alprazolam, muscle relaxants or sleep aids. Never sell or share prescription opioids. This is illegal. Store opioids in a secure place and out of reach of others (including children, family, friends and visitors). The last page(s) of this document has been signed and retained as a CHART COPY Signatures Patient Education Materials Wrist Splint, Velcro Wrist Sprain Hand and Wrist Exercises: Forearm Roll Medication Leaflets My discharge plan and instructions have been reviewed and explained to me and I,RONNA AGUAYO understand my current condition and have read and understand these discharge instructions. I have received a written copy of the plan/instructions. If I have questions, I am aware that I should contact my doctor. Patient/Field Representative/Health Education Signature: Date/Time: Relationship to Patient: Witness Name/Signature: Date/Time: [facility] 02-13-2022 Note ORIGINAL EXAMINATION: THREE XRAY VIEWS OF THE RIGHT WRIST02/13/2022 10:31 am COMPARISON: None HISTORY: ORDERING SYSTEM PROVIDED HISTORY: Reason for Exam: pain FINDINGS: No acute fracture or dislocation is identified. The joint spaces are maintained. There is no radiopaque foreign body. IMPRESSION: No acute fracture or dislocation. Interpreted by: Fautsino Bailey MD Preliminary Report By: Faustino Bailey MD Electronically signed By Faustino Bailey MD Dictated Date: 02/13/2022 10:33:29 AM Prelim Date: 02/13/2022 10:33:45 AM Sign Date: 02/13/2022 10:33:45 AM Ordering Provider: [facility] 02-13-2022 Note ORIGINAL EXAMINATION: THREE XRAY VIEWS OF THE RIGHT WRIST02/13/2022 10:31 am COMPARISON: None HISTORY: ORDERING SYSTEM PROVIDED HISTORY: Reason for Exam: pain FINDINGS: No acute fracture or dislocation is identified. The joint spaces are maintained. There is no radiopaque foreign body. IMPRESSION: No acute fracture or dislocation. Interpreted by: Faustino Bailey MD Preliminary Report By: Faustino Bailey MD Electronically signed By Faustino Bailey MD Dictated Date: 02/13/2022 10:33:29 AM Prelim Date: 02/13/2022 10:33:45 AM Sign Date: 02/13/2022 10:33:45 AM Ordering Provider: [facility] 11-19-2021 Hospital Discharge instructions Patient Education 11/19/2021 12:25:28 Abdominal Pain, Unknown Cause, (Female) Unknown Causes of Abdominal Pain (Female) The exact cause of your belly (abdominal) pain is not clear. This does not mean that this is something to worry about. Everyone likes to know the exact cause of the problem. But sometimes with belly pain, there is no clear-cut cause, and this could be a good thing. The good news is that your symptoms can be treated, and you will feel better. Your condition does not seem serious now. But sometimes the signs of a serious problem may take more time to appear. For this reason, it is important for you to watch for any new symptoms, problems, or worsening of your condition. Over the next few days, the abdominal pain may come and go. Or it may be constant. Other common symptoms can include nausea and vomiting. Sometimes it can be difficult to tell if you feel nauseous. You may just feel bad and not connect that feeling to nausea. Constipation, diarrhea, and a fever may go along with the pain. The pain may continue even if treated correctly over the following days. Depending on how things go, sometimes the cause can become clear and may need more or different treatment. Additional evaluations, medicines, or tests may also be needed. Home care Your healthcare provider may prescribe medicine for pain, symptoms, or an infection. Follow the healthcare provider's instructions for taking these medicines. General care Rest as much as you can until your next exam. No strenuous activities. Try to find positions that ease discomfort. A small pillow placed on the abdomen may help relieve pain. Something warm on your abdomen (such as a heating pad) may help, but be careful not to burn yourself. Diet Don t force yourself to eat, especially if having cramps, vomiting, or diarrhea. Water is important so you don't get dehydrated. Soup may also be good. Sports drinks may also help, especially if they are not too acidic. Don't drink sugary drinks as this can make things worse. Take liquids in small amounts. Don t guzzle them. Caffeine sometimes makes the pain and cramping worse. Don t take dairy products if you have vomiting or diarrhea. Don't eat large amounts at a time. Wait a few minutes between bites. Eat a diet low in fiber (called a low-residue diet). Foods allowed include refined breads, white rice, fruit and vegetable juices without pulp, tender meats. These foods will pass more easily through the intestine. Don t have whole-grain foods, whole fruits and vegetables, meats, seeds and nuts, fried or fatty foods, dairy, alcohol and spicy foods until your symptoms go away. Follow-up care Follow up with your healthcare provider, or as advised, if your pain does not begin to improve in the next 24 hours. Call 911 Call 911 if any of these occur: Trouble breathing Confusion Fainting or loss of consciousness Rapid heart rate Seizure When to seek medical advice Call your healthcare provider right away if any of these occur: Pain gets worse or moves to the right lower abdomen New or worsening vomiting or diarrhea Swelling of the abdomen Unable to pass stool for more than 3 days Fever of 100.4 F (38 C) or higher, or as directed by your healthcare provider. Blood in vomit or bowel movements (dark red or black color) Yellow color of eyes and skin (jaundice) Weakness, dizziness Chest, arm, back, neck, or jaw pain Unexpected vaginal bleeding or missed period Can't keep down liquids or water and you are getting dehydrated 7972-30[address] [employer]. [address] [place] [address]. All rights reserved. This information is not intended as a substitute for professional medical care. Always follow your healthcare professional's instructions. Follow Up Care 11/19/2021 10:30:34 With:MD TANYA PARISI MD Address: [address] [place] [address] [facility] [address] [phone] When:2-4 days [facility] 11-19-2021 Emergency department Discharge summary Discharge Instructions Thank you for allowing [facility] to assist you with your healthcare needs. The following is important discharge information regarding your hospital visit. Diagnosis from Today's Visit Acute LUQ pain What to Do Next Instructions from Your Care Team No qualifying data available. Post Acute Orders No qualifying data available. You Need to Schedule the Following Appointments Follow Up with MD TANYA PARISI MD When Within 2-4 days Where: [address] [place] [address] [facility] [address]- [phone] Allergies NKA Medications Please ask your primary doctor or pharmacist before taking any other medication not listed, including over the counter drugs, herbal medications, vitamins and or supplements as they may interact with your home medications. What How Much When Instructions Last Dose New dicyclomine (Bentyl use dicyclomine ) 20 Milligram by mouth Four (4) times a day Duration: 7 Days Printed Prescription New famotidine (Pepcid 20 mg oral tablet) 1 tab(s) by mouth Two (2) times a day Printed Prescription Unchanged docusate (Colace 100 mg oral capsule) 1 cap by mouth Two (2) times a day as needed for as needed for constipation Duration: 30 Days Unchanged ibuprofen (ibuprofen 600 mg oral tablet) 1 tab(s) by mouth Every 6 hours Take with food or milk. Unchanged multivitamin, ( Multivitamins with Folic Acid 1 mg oral tablet) 1 tab(s) by mouth Every day Please take this list to your next doctor s visit. Bring all medications you take, including over the counter medications, herbals and other supplements with you to your doctor s visit. Patients and families are reminded to discard old lists and to update any records with all medication providers or retail pharmacies. Education Materials Unknown Causes of Abdominal Pain (Female) The exact cause of your belly (abdominal) pain is not clear. This does not mean that this is something to worry about. Everyone likes to know the exact cause of the problem. But sometimes with belly pain, there is no clear-cut cause, and this could be a good thing. The good news is that your symptoms can be treated, and you will feel better. Your condition does not seem serious now. But sometimes the signs of a serious problem may take more time to appear. For this reason, it is important for you to watch for any new symptoms, problems, or worsening of your condition. Over the next few days, the abdominal pain may come and go. Or it may be constant. Other common symptoms can include nausea and vomiting. Sometimes it can be difficult to tell if you feel nauseous. You may just feel bad and not connect that feeling to nausea. Constipation, diarrhea, and a fever may go along with the pain. The pain may continue even if treated correctly over the following days. Depending on how things go, sometimes the cause can become clear and may need more or different treatment. Additional evaluations, medicines, or tests may also be needed. Home care Your healthcare provider may prescribe medicine for pain, symptoms, or an infection. Follow the healthcare provider's instructions for taking these medicines. General care Rest as much as you can until your next exam. No strenuous activities. Try to find positions that ease discomfort. A small pillow placed on the abdomen may help relieve pain. Something warm on your abdomen (such as a heating pad) may help, but be careful not to burn yourself. Diet Don t force yourself to eat, especially if having cramps, vomiting, or diarrhea. Water is important so you don't get dehydrated. Soup may also be good. Sports drinks may also help, especially if they are not too acidic. Don't drink sugary drinks as this can make things worse. Take liquids in small amounts. Don t guzzle them. Caffeine sometimes makes the pain and cramping worse. Don t take dairy products if you have vomiting or diarrhea. Don't eat large amounts at a time. Wait a few minutes between bites. Eat a diet low in fiber (called a low-residue diet). Foods allowed include refined breads, white rice, fruit and vegetable juices without pulp, tender meats. These foods will pass more easily through the intestine. Don t have whole-grain foods, whole fruits and vegetables, meats, seeds and nuts, fried or fatty foods, dairy, alcohol and spicy foods until your symptoms go away. Follow-up care Follow up with your healthcare provider, or as advised, if your pain does not begin to improve in the next 24 hours. Call 911 Call 911 if any of these occur: Trouble breathing Confusion Fainting or loss of consciousness Rapid heart rate Seizure When to seek medical advice Call your healthcare provider right away if any of these occur: Pain gets worse or moves to the right lower abdomen New or worsening vomiting or diarrhea Swelling of the abdomen Unable to pass stool for more than 3 days Fever of 100.4 F (38 C) or higher, or as directed by your healthcare provider. Blood in vomit or bowel movements (dark red or black color) Yellow color of eyes and skin (jaundice) Weakness, dizziness Chest, arm, back, neck, or jaw pain Unexpected vaginal bleeding or missed period Can't keep down liquids or water and you are getting dehydrated [id number] [employer]. [address] [place] [address]. All rights reserved. This information is not intended as a substitute for professional medical care. Always follow your healthcare professional's instructions. Additional Information VACCINATE! IT SAVES LIVES! Members of the community who have not yet received the COVID-19 vaccine and would like to receive it can visit one of [facility] vaccine clinics. There are many vaccine clinic locations within the [facility]. For locations and available times, please visit [email or web address]. It is important to note that some COVID mobile vaccine clinics are held outdoors and may be canceled in rainy or stormy conditions. To learn more about pediatric vaccinations (ages 5-11), we invite you to visit the [facility] webpage. [email or web address] To learn more about the COVID-19 vaccine, we invite you to visit the [facility] website for a list of frequently asked questions. [email or web address] [facility] Patient Portal Access Instructions: Stay connected with your healthcare team and access your personal medical information anytime with the [facility] Patient Portal. If you would like a full copy of your medical records please contact the [facility] Medical Records Department Sunday through Sunday between 8a.m. and 4:30p.m. Please follow the directions below to access the portal: 1.Access the email account you provided upon registration to the [facility].2.Look for an invitation email from [facility].3.Open the email and access the invitation link: Accept Invitation to [facility]4.Fill in the required adame to create your account. Sign into [email or web address] with your username and password that you created in the above steps to stay up to date. You can then view a summary of results, a summary of your visits, and the ability to download your summaries to your computer or send the information securely to a physician. Remember that your healthcare information is confidential, so carefully consider who you will allow to register on the [facility] Patient Portal for access to your information. You can also access the [facility] Patient Portal on the [employer] cinthya. Simply click on Health Records under Health Data and then click on the [employer] logo. HOW TO SAFELY DISPOSE OF PRESCRIPTION MEDICATIONS Please use one of the following methods to safely dispose of your unused medications. 1.Use a drug disposal kit: the drug disposal pouch allows you to safely discard your old and unused drugs. Ask your nurse to give you one when you are discharged.2.Visit a local take-back location: Many local pharmacies and police departments have programs that collect old and unwanted prescription drugs. Call your local pharmacy or go to http://bit.[employer]/8H1Re2c to find one close to you.3.Make use of household items: Use cat litter or old coffee grounds to dispose medications if other options are not available. Mix your drugs with these household products, seal them in an airtight container and throw it into the garbage. Call [facility]: [phone] to be sure your drugs can be disposed of in this way. Some medicines may require a different approach.4.Never flush your medications down the toilet. IF YOU HAVE BEEN PRESCRIBED AN OPIOIDS FOR PAIN If you have been prescribed an opioid (such as hydrocodone, oxycodone or morphine), it is critical to understand the possible side effects and risks of opioid pain medications. Even when taken as directed, opioids can have several side effects including: Tolerance, meaning you might need to take more of a medication for the same pain relief. Nausea, vomiting and/or constipation. Sleepiness, dizziness, dry mouth, confusion, depression or itching. Physical dependence, meaning you have withdrawal symptoms when a medication is stopped ? this can develop within a few days. KNOW YOUR RESPONSIBILITIES It is important to know exactly how much and how often to take the opioid pain medications you are prescribed. Never take opioids in higher amounts or more often than prescribed. Do not combine opioids with alcohol or other drugs that cause drowsiness, such as benzodiazepines, also known as benzos, including diazepam and alprazolam, muscle relaxants or sleep aids. Never sell or share prescription opioids. This is illegal. Store opioids in a secure place and out of reach of others (including children, family, friends and visitors). The last page(s) of this document has been signed and retained as a CHART COPY Signatures Patient Education Materials Abdominal Pain, Unknown Cause, (Female) Medication Leaflets My discharge plan and instructions have been reviewed and explained to me and IOLIVIER NATASHA L understand my current condition and have read and understand these discharge instructions. I have received a written copy of the plan/instructions. If I have questions, I am aware that I should contact my doctor. Patient/Field Representative/Health Education Signature: Date/Time: Relationship to Patient: Witness Name/Signature: Date/Time: [facility] 09-08-2021 Note ORIGINAL EXAMINATION: TWO XRAY VIEWS OF THE CHEST09/08/2021 9:06 pm COMPARISON: None HISTORY: ORDERING SYSTEM PROVIDED HISTORY: Reason for Exam: archer sternal pain FINDINGS: The heart size is normal. There is no pulmonary consolidation. No pneumothorax or pleural effusion. No aggressive osseous lesions identified. IMPRESSION: No acute radiographic findings. Interpreted by: Faustino Bailey MD Preliminary Report By: Faustino Bailey MD Electronically signed By Faustino Bailey MD Dictated Date: 09/08/2021 9:12:45 PM Prelim Date: 09/08/2021 9:13:07 PM Sign Date: 09/08/2021 9:13:07 PM Ordering Provider: [facility] 09-08-2021 Note ORIGINAL EXAMINATION: TWO XRAY VIEWS OF THE CHEST09/08/2021 9:06 pm COMPARISON: None HISTORY: ORDERING SYSTEM PROVIDED HISTORY: Reason for Exam: archer sternal pain FINDINGS: The heart size is normal. There is no pulmonary consolidation. No pneumothorax or pleural effusion. No aggressive osseous lesions identified. IMPRESSION: No acute radiographic findings. Interpreted by: Faustino Bailey MD Preliminary Report By: Faustino Bailey MD Electronically signed By Faustino Bailey MD Dictated Date: 09/08/2021 9:12:45 PM Prelim Date: 09/08/2021 9:13:07 PM Sign Date: 09/08/2021 9:13:07 PM Ordering Provider: [facility] 09-02-2021 Evaluation + Plan note Diagnostic Tests PendingUrine Culture 09/02/21 [facility] 08-18-2021 Miscellaneous Notes BEHAVIORAL HEALTH INTAKE NOTE SERVICE DATE: 08/18/21 SERVICE TIME: 2:59p Nature of the crisis: [place] slipped from [facility] to ED due to manic behavior Presenting Problem: Ronna Aguayo is a 25 year old female brought in to [facility] ED from Outpatient Office by ambulance for psych evaluation. Pt states that she was upset about something her sister said to her over phone (sister was demanding pt's WIC) and they were talking about anger in an emotions class and pt punched a wall at the [facility] ([facility]). Pt's adoptive sister Roma is currently caring for her 1 month old daughter while she is in [facility]. 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 Pt started on Abilify when she arrived at [facility] on August 10 2021. Pt prescribed meds by Christi VILLA and sees pillowcase folder Enedelia. Pt denies SI/HI. Per Sandra ([facility] employee): Pt was admitted to [facility] on August 09 due to increased depression and being 4 weeks post . Pt came there for meds and support and CPS is involved with her and her daughter. Today, pt was slamming things, banging on wells and being disruptive and the DAISY felt like pt needed higher level of care. Pt was throwing temper tantrums and not expressing self appropriately. 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 PAST MEDICAL HISTORY: No past medical history on file. SOCIAL HISTORY: Social History Tobacco Use Smoking status: Current Every Day Smoker Packs/day: 0.25 Years: 1.00 Pack years: 0.25 Types: Cigarettes Smokeless tobacco: Never Used Substance Use Topics Alcohol use: No Drug use: No MEDICATIONS: ondansetron orally disintegrating (ZOFRAN ODT) 4 mg disintegrating tablet Take 1 tablet by mouth every 6 hours as needed for Nausea/Vomiting. levETIRAcetam (KEPPRA) 250 mg tablet Take 1 tablet by mouth twice daily. pimecrolimus(ELIDEL 1 % TOPICAL CREAM) montelukast sodium(SINGULAIR 5 MG CHEWABLE TAB) Take one(1) tablet daily at bedtime. No medication comments found. MEDICATION COMPLIANCE: Yes ALLERGIES Allergen Reactions Peanuts Swelling PAST SURGICAL HISTORY: PAST SURGICAL HISTORY Procedure Laterality Date NONE SOCIOECONOMIC HISTORY: Employer And Job Title: None on file Years Of Education Completed: Not specified Marital Status: Single SOCIAL INFORMATION: Living Arrangements: Home Does Patient Have Minor Children for Whom He/She is Responsible?: Yes Care Provided When Patient is Unable: pt's sister is currently caring for her daughter Employment Status: Full-Time Gender Specific Sex at Time of : Female Patient Identified Gender: Female Preferred Pronoun: She/Her/Hers FAMILY HISTORY: FAMILY HISTORY Adopted: Yes OBSERVATIONS Level of Consciousness Alert: Yes Orientation: Person;Time;Situation;Place Physical Appearance Appears: Average Speech Rate: Appropriate Volume: Appropriate Quality: Appropriate to Topic Quantity: Appropriate Thought Processes Thought: Linear and Organized Thought Content Delusions: None Observed Hallucinations: None Evident Illusions: None Evident Memory: Intact Remote;Intact Recent Mood & Affect Patient Described Mood: I'm a little bit tired but I feel like I'm ok Observed/Reported: Euthymic Range of Affect: Full Sleep: No Disturbance Appetite: Normal Appetite Energy: No Significant Change in Energy Non-Suicidal Self Injury Non-Suicidal Self Injury: Patient Denies Suicidal Ideation Suicidal Ideation: Patient Denies Homicidal Ideation Homicidal Ideation: Patient Denies Non-Lethal Harm to Others or Damage/Destruction to Property Harm to Others or Damage/Destruction of Property: Patient Denies Access To Weapons Access To Weapons: No Medical Conditions Medical Conditions Increasing Risks: None CHEMICAL DEPENDENCY ACTIVITY Activities of Daily Living: Independent Mobility: No Assistance MENTAL HEALTH SERVICES: Current Mental Health Providers: Garry Beth Agency/Organization: [facility] Mental Health Treatment History: Over 90 Days Ago Details of Past Hospitalization: Last Hospitalization: 2019 INTERVENTIONS Sources of Information: Patient;Epic;ED Staff;Other: See Comment (crisis staff) Patient Assessed by Intake via: Telephone Coordination of care with: ED LIP;ED RN;Crisis Providers Interventions: Therapeutic Interventions Therapeutic Interventions: Crisis Assessment Goals/Objectives: Discharge from hospital with referrals/linkage to supportive services/current providers DISPOSITION & PLAN: Patient Assessed by Intake via: Telephone Patient stated goals: Goals: To not be hospitalized/be discharged from ED Coordination of Care with: ED LIP;ED RN;Crisis Providers Assessment/Impressions: Discharge Plan: Discharge Goals/Objectives: Discharge from hospital with referrals/linkage to supportive services/current providers Total time spent (minutes) in Supportive Care for this patient: 30 MEDICAL CLEARANCE Reviewed medical history with physician: No Reviewed abnormal labs with physician: No Discussed case with Dr. Pillai (ED LIP) who states that Ronna Aguayo is not a candidate for admission. Is Patient Less Than 18 Years of Age or have a Guardian/Healthcare Power of Hand Spring Former?: No Disposition Date: 08/18/21 Disposition Time: 1521 SIGNATURE: REEMA Lazcano PATIENT NAME: Ronna Aguayo DATE: August 18, 2021 TIME: 3:29 PM documented in this encounter [facility] 07-21-2021 Hospital Discharge instructions Patient Education 07/21/2021 07:14:21 Hypertension Hypertension hypertension is high blood pressure that remains higher than normal after childbirth. You may not realize that you have hypertension if your blood pressure is not being checked regularly. In most cases, hypertension will go away on its own, usually within a week of delivery. However, for some women, medical treatment is required to prevent serious complications, such as seizures or stroke. What are the causes? This condition may be caused by one or more of the following: Hypertension that existed before (chronic hypertension). Hypertension that comes on as a result of (gestational hypertension). Hypertensive disorders during (preeclampsia) or seizures in women who have high blood pressure during (eclampsia). A condition in which the liver, platelets, and red blood cells are damaged during (HELLP syndrome). A condition in which the thyroid produces too much hormones (hyperthyroidism). Other rare problems of the nerves (neurological disorders) or blood disorders. In some cases, the cause may not be known. What increases the risk? The following factors may make you more likely to develop this condition: Chronic hypertension. In some cases, this may not have been diagnosed before . Obesity. Type 2 diabetes. Kidney disease. History of preeclampsia or eclampsia. Other medical conditions that change the level of hormones in the body (hormonal imbalance). What are the signs or symptoms? As with all types of hypertension, hypertension may not have any symptoms. Depending on how high your blood pressure is, you may experience: Headaches. These may be mild, moderate, or severe. They may also be steady, constant, or sudden in onset (thunderclap headache). Changes in your ability to see (visual changes). Dizziness. Shortness of breath. Swelling of your hands, feet, lower legs, or face. In some cases, you may have swelling in more than one of these locations. Heart palpitations or a racing heartbeat. Difficulty breathing while lying down. Decrease in the amount of urine that you pass. Other rare signs and symptoms may include: Sweating more than usual. This lasts longer than a few days after delivery. Chest pain. Sudden dizziness when you get up from sitting or lying down. Seizures. Nausea or vomiting. Abdominal pain. How is this diagnosed? This condition may be diagnosed based on the results of a physical exam, blood pressure measurements, and blood and urine tests. You may also have other tests, such as a CT scan or an MRI, to check for other problems of hypertension. How is this treated? If blood pressure is high enough to require treatment, your options may include: Medicines to reduce blood pressure (antihypertensives). Tell your health care provider if you are or if you plan to breastfeed. There are many antihypertensive medicines that are safe to take while . Stopping medicines that may be causing hypertension. Treating medical conditions that are causing hypertension. Treating the complications of hypertension, such as seizures, stroke, or kidney problems. Your health care provider will also continue to monitor your blood pressure closely until it is within a safe range for you. Follow these instructions at home: Take pogv-ooc-bxoeids and prescription medicines only as told by your health care provider. Return to your normal activities as told by your health care provider. Ask your health care provider what activities are safe for you. Do not use any products that contain nicotine or tobacco, such as cigarettes and e-cigarettes. If you need help quitting, ask your health care provider. Keep all follow-up visits as told by your health care provider. This is important. Contact a health care provider if: Your symptoms get worse. You have new symptoms, such as: ?A headache that does not get better. ?Dizziness. ?Visual changes. Get help right away if: You suddenly develop swelling in your hands, ankles, or face. You have sudden, rapid weight gain. You develop difficulty breathing, chest pain, racing heartbeat, or heart palpitations. You develop severe pain in your abdomen. You have any symptoms of a stroke. BE FAST is an easy way to remember the main warning signs of a stroke: ?B - Balance. Signs are dizziness, sudden trouble walking, or loss of balance. ?E - Eyes. Signs are trouble seeing or a sudden change in vision. ?F - Face. Signs are sudden weakness or numbness of the face, or the face or eyelid drooping on one side. ?A - Arms. Signs are weakness or numbness in an arm. This happens suddenly and usually on one side of the body. ?S - Speech. Signs are sudden trouble speaking, slurred speech, or trouble understanding what people say. ?T - Time. Time to call emergency services. Write down what time symptoms started. You have other signs of a stroke, such as: ?A sudden, severe headache with no known cause. ?Nausea or vomiting. ?Seizure. These symptoms may represent a serious problem that is an emergency. Do not wait to see if the symptoms will go away. Get medical help right away. Call your local emergency services (911 in the [place] Do not drive yourself to the hospital. Summary hypertension is high blood pressure that remains higher than normal after childbirth. In most cases, hypertension will go away on its own, usually within a week of delivery. For some women, medical treatment is required to prevent serious complications, such as seizures or stroke. This information is not intended to replace advice given to you by your health care provider. Make sure you discuss any questions you have with your health care provider. Document Released: 2014 Document Revised: 03/07/2019 Document Reviewed: 11/19/2017 [employer] Patient Education 2020 [employer] 07/21/2021 07:14:21 Hemorrhage Hemorrhage hemorrhage is excessive blood loss after childbirth. Vaginal bleeding after delivery is normal and should be expected. Bleeding (lochia) will occur for several days after childbirth. This can be expected with normal vaginal deliveries and deliveries. However, hemorrhage is a potentially serious condition. What are the causes? This condition is caused by: A loss of muscle tone in the uterus after childbirth. This can be caused by: ?An abnormal placenta. ?Infection. ?Bladder swelling (distension). Failure to deliver all of the placenta or the retention of clots. Wounds in the canal caused by delivery of the fetus. Infection of the uterus. Infection of tissue around the fetus. A tear in the uterus. Tearing of the vagina or cervix during delivery. A maternal bleeding disorder that prevents blood from clotting (rare). What increases the risk? This condition is likely to develop in people who: Have a history of hemorrhage. Had a delivery that lasted longer than usual. Have an excess of amniotic fluid in the amniotic sac (polyhydramnios), leading the uterus to stretch too much. Have delivered quintuplets or more babies. Had high blood pressure, seizures, or coma during . Had a condition called preeclampsia or eclampsia during . Had problems with the placenta. Had complications during labor or delivery. Are obese. Are 40 years old or older. Are or . What are the signs or symptoms? Symptoms of this condition include: Passing large clots or pieces of tissue. These may be small pieces of placenta left after delivery. Soaking more than one sanitary pad per hour for several hours. Heavy, bright-red bleeding that occurs 4 days or more after delivery. Discharge that has a bad smell. An unexplained fever. Nausea or vomiting. Pain or swelling near the vagina or perineum. A drop in blood pressure. Lightheadedness or fainting. Shortness of breath. A fast heart rate that happens with very little activity. Signs of shock, such as: ?Blurry vision. ?Chills. ?Dizziness. ?Weakness. How is this diagnosed? This condition may be diagnosed based on: Your symptoms. A physical exam of your perineum, vagina, cervix, and uterus. Tests, including: ?Blood pressure and pulse measurements. ?Blood tests. ?Blood clotting tests. ?Ultrasonography. How is this treated? Treatment for this condition depends on the severity of your symptoms. It may include: Uterine massage. Medicines to help the uterus contract. Blood transfusions. Fluids given through the vein. A medical procedure to compress arteries supplying the uterus. Sometimes bleeding occurs if portions of the placenta are left behind in the uterus after delivery. If this happens, a curettage or scraping of the inside of the uterus must be done (rare). This usually stops the bleeding. If curettage does not stop the bleeding, surgery may be done to remove the uterus (hysterectomy), but this rarely occurs. If bleeding is due to clotting or bleeding problems that are not related to the , other treatments may be needed. Follow these instructions at home: Limit your activity as directed by your health care provider. Your health care provider may order bed rest (getting up to go to the bathroom only) or may allow you to continue light activity. Keep track of the number of pads you use each day and how soaked (saturated) they are. Write down this information. Do not use tampons. Do not douche or have sexual intercourse until your health care provider approves. Drink enough fluids to keep your urine clear or pale yellow. Get enough rest. Eat foods that are rich in iron, such as spinach, red meat, and legumes. Take any qgfo-jak-aqthshw and prescription medicines only as told by your health care provider. Keep all follow-up visits as told by your health care provider. This is important. Get help right away if: You experience severe cramps in your stomach, back, or abdomen. You have a fever. You pass large clots or tissue. Save any tissue for your health care provider to look at. Your bleeding increases. You have heavy bleeding that soaks one pad per hour for 2 hours in a row. You faint or become dizzy, weak, or lightheaded. Your sanitary pad count per hour is increasing. You are urinating less than usual or not at all. You have shortness of breath. Your heart rate is faster than usual. You have sudden chest pain. This information is not intended to replace advice given to you by your health care provider. Make sure you discuss any questions you have with your health care provider. Document Released: 04/20/2004 Document Revised: 01/11/2018 Document Reviewed: 09/01/2016 [employer] Patient Education 2020 [employer] 07/21/2021 07:14:19 7- Home Care Instructions After Delivery 03/2019 (CUSTOM) Home Care Instructions After Delivery After discharge you may discover that you still have questions about body changes, activity, and care during the next few weeks. The following information should be helpful in answering many of your questions. ACTIVITY Resume your daily activities at home gradually. Allow time for rest periods during the day Avoid heavy lifting (more than 10 pounds/4.5 kilograms) and strenuous work or sports. If you had a , you should refrain from vacuuming, stair-climbing, and driving a car for 2 to 3 weeks. VAGINAL FLOW & RETURN OF MENSES Vaginal flow may continue for 4 to 6 weeks after delivery. Usually the amount decreases and the color of blood gets combined rail operator. Bright red and increased flow may reoccur if you have been too active. Lie down, rest, and call your caregiver if you are soaking more than 1 pad an hour or passing large clots. Menstrual period will usually return 6 to 8 weeks after delivery. PERINEAL CARE Use the irma-bottle and change sanitary pads each time you go to the bathroom. Use towelettes in place of toilet paper until stitches are healed. Continue to use tucks and/or spray dermoplast. Lidocaine cream for episiotomy pain with your care givers approval. Do not use tampons or douches until vaginal bleeding has stopped (about 4 weeks). No Sexual intercourse until seen by physician. INCISION (CUT BY THE SURGEON) CARE Following , shower as desired but try to keep your incision dry. A small amount of clear or pink drainage is normal. The incision site will be tender for several weeks. Take prescription or efqa-rji-vkqmyex medications for pain with your care givers approval. Contact your caregiver if the drainage increases, becomes foul smelling, the incision reddens, or you develop a fever. BOWELS/HEMORRHOIDS Try to avoid constipation by increasing the fluids and fiber in your diet. Drink at least 6 to 8 glasses of non-caffeinated fluids per day. Include whole grains, raw fruits and vegetables in your diet. Avoid straining when trying to pass a stool. Vfrh-exk-tfnxhex medications, stool softeners, can be used. Check with your caregiver. NUTRITION Eat a well-balanced diet that includes the basic food groups. Do not try to lose weight quickly by drastically cutting back on calories. EXERCISES Kegel exercises Start this exercise right after delivery. You can do it while standing, sitting, or lying down. Tighten your stomach muscles and the muscles surrounding your canal. Hold for a few seconds and then relax. Do Kegel exercises when you take a sitz bath. Repeat often during the day. Choose special times during the day when you will remember to do this (for example, when using the bathroom, turning the water faucet on, etc.). Repeat 5 times each time. Make Kegel exercises a part of your daily routine to maintain the tone of muscles that support your vagina, bladder, and bowels. SELF BREAST EXAMINATION A self breast exam needs to be an important part of every woman's self-care. Do your self breast exam once a month, 5 to 7 days after your period begins, unless you are . Do self breast exams at the same time of the month each month, on a day of your choice. Any lump, bump or discharge should be reported to your caregiver. SEEK MEDICAL CARE IMMEDIATELY IF YOU NOTICE: Sanitary pad soaked with blood in 1 hour or less. Severe lower abdominal pain or cramping. Foul-smelling discharge from vagina. Increased rather than decreased pain around stitches and/or swelling, redness or hardness in area. Pain and/or redness in calf of the leg. Nausea with vomiting for 12 hours. Sudden, severe chest pain. Shortness of breath. Painful urination. Severe headache. Area of the breast is red and sore and you have a fever. (You may feel like you have flu symptoms.) Follow Up Care 07/17/2021 16:19:39 With:[facility] Address: [address] [place] [address] (Mon-Fri from 8:30am - 5:00pm) [place] [id number]- When:09/01/2021 Comments:Follow-up as needed [facility] 07-16-2021 Hospital Discharge instructions Patient Education 07/16/2021 17:05:07 7 - Labor and Delivery Outpatient Instructions (CUSTOM) [facility] HOME-GOING INSTRUCTIONS _X_ You are to follow up with your physician as scheduled ACTIVITY ___ Bedrest _x__Activity as tolerated ___ No work/school for ___ days. ___Other PRESCRIPTION GIVEN ___Yes NAUSEA/VOMITING _x__ Take small, frequent amounts of clear liquids. Avoid fruit juices and milk. _x__ Increase fluid intake to a minimum of 8 ounces of fluid every hour while awake. _x__ Soft diet. Rice, crackers, bananas, Jell-O, cooked carrots, applesauce. __x_ Gilpin diet. Avoid caffeine, chocolate, alcohol, spiced/greasy foods. Call your physician if you experience: __x_ Increase in vaginal discharge, leaking fluid, or vaginal bleeding. _x__ More than 6 contractions in one hour. __x_ Burning and frequency with urination. DECREASED MOVEMENT _x__ Lie down on your left side, drink some fluids and relax. Count the movements. You need to have 10 movements in 2 hours. __x_ If you do not feel the 10 movements, call your physician. OTHER _x__ After an exam you may experience some spotting or discharge. As long as it is not bright red and heavy like a period or continues to leak as if your water broke, it is to be expected. ___ LABOR Call your physician if you experience: _x__ Painful uterine contractions every _2-3__ minutes for _2__ hours. _x__A gush or continuous trickle of watery discharge. COME TO THE HOSPITAL AND CALL PHYSICIAN IF: _x__ Your abdomen feels continually firm. __x_ *Bleeding is bright red and enough to saturate a pad in one hour or less. *Call 911 or go to the nearest Emergency Room for assistance. Form [id number] D: 01/20 Document Released: 01/29/2006 Document Revised: 01/18/2012 Document Reviewed: 01/29/2006 [facility] Patient Information 2012 [employer] Follow Up Care 07/16/2021 13:09:43 With:RODRIGUE PLATT DO Address: [address] [place] [address] [place] [address]- [phone] When: Unknown Comments:Follow-up as scheduled [facility] 07-16-2021 Hospital Discharge instructions Patient Education 07/16/2021 10:47:10 7 - Labor and Delivery Outpatient Instructions (CUSTOM) [facility] HOME-GOING INSTRUCTIONS _X_ You are to follow up with your physician as scheduled ACTIVITY ___ Bedrest _X__Activity as tolerated ___ No work/school for ___ days. ___Other PRESCRIPTION GIVEN ___Yes NAUSEA/VOMITING ___ Take small, frequent amounts of clear liquids. Avoid fruit juices and milk. ___ Increase fluid intake to a minimum of 8 ounces of fluid every hour while awake. ___ Soft diet. Rice, crackers, bananas, Jell-O, cooked carrots, applesauce. ___ Gilpin diet. Avoid caffeine, chocolate, alcohol, spiced/greasy foods. URINARY TRACT INFECTION ___ Drink 8-12 glasses of water every day. ___ Urinate frequently; do not limit fluids to reduce frequency of urination. ___ Call your physician if burning and frequency with urination returns after taking all your medication. ___ Call your physician if you have a temperature of 100.4 degrees Fahrenheit or higher. ___ Wipe from front to back. SIGNS OF PRE-ECLAMPSIA ___ Severe heartburn. ___ Persistent headache not relieved by Tylenol. ___ Increased in swelling of face, hands and feet. ___ Blurred vision, double vision, or spots in the eyes. ___ Persistent vomiting. ___ *Convulsions or seizures. LABOR ___ Restrict activity. ___ Drink 8-12 glasses of water every day. ___ Urinate frequently ___ Pelvic rest. No sexual intercourse/ Call your physician if you experience: ___ Increase in vaginal discharge, leaking fluid, or vaginal bleeding. ___ More than 4, 5, or 6 contractions in one hour. ___ Burning and frequency with urination. DECREASED MOVEMENT _X__ Lie down on your left side, drink some fluids and relax. Count the movements. You need to have 10 movements in 2 hours. _X__ If you do not feel the 10 movements, call your physician. OTHER _X__ After an exam you may experience some spotting or discharge. As long as it is not bright red and heavy like a period or continues to leak as if your water broke, it is to be expected. ___ LABOR Call your physician if you experience: _X__ Painful uterine contractions every _3-5__ minutes for _1-2__ hours. _X__A gush or continuous trickle of watery discharge. COME TO THE HOSPITAL AND CALL PHYSICIAN IF: _X__ Your abdomen feels continually firm. _X__ *Bleeding is bright red and enough to saturate a pad in one hour or less. *Call 911 or go to the nearest Emergency Room for assistance. Form [id number] D: 01/20 Document Released: 01/29/2006 Document Revised: 01/18/2012 Document Reviewed: 01/29/2006 [facility] Patient Information 2012 [employer] Follow Up Care 07/16/2021 09:32:25 With:OB, OB CLINIC Address: [address] [place] [address]- When: Unknown Comments:Follow-up as scheduledinduction of labor scheduled for 07-18-21 [facility] 07-07-2021 Hospital Discharge instructions Patient Education 07/07/2021 12:44:06 7 - Labor and Delivery Outpatient Instructions (CUSTOM) [facility] HOME-GOING INSTRUCTIONS _X_ You are to follow up with your physician in ___ days/weeks. ACTIVITY ___ Bedrest _X__Activity as tolerated ___ No work/school for ___ days. ___Other PRESCRIPTION GIVEN ___Yes NAUSEA/VOMITING ___ Take small, frequent amounts of clear liquids. Avoid fruit juices and milk. ___ Increase fluid intake to a minimum of 8 ounces of fluid every hour while awake. ___ Soft diet. Rice, crackers, bananas, Jell-O, cooked carrots, applesauce. ___ Gilpin diet. Avoid caffeine, chocolate, alcohol, spiced/greasy foods. URINARY TRACT INFECTION ___ Drink 8-12 glasses of water every day. ___ Urinate frequently; do not limit fluids to reduce frequency of urination. ___ Call your physician if burning and frequency with urination returns after taking all your medication. ___ Call your physician if you have a temperature of 100.4 degrees Fahrenheit or higher. ___ Wipe from front to back. SIGNS OF PRE-ECLAMPSIA ___ Severe heartburn. ___ Persistent headache not relieved by Tylenol. ___ Increased in swelling of face, hands and feet. ___ Blurred vision, double vision, or spots in the eyes. ___ Persistent vomiting. ___ *Convulsions or seizures. LABOR ___ Restrict activity. ___ Drink 8-12 glasses of water every day. ___ Urinate frequently ___ Pelvic rest. No sexual intercourse/ Call your physician if you experience: ___ Increase in vaginal discharge, leaking fluid, or vaginal bleeding. ___ More than 4, 5, or 6 contractions in one hour. ___ Burning and frequency with urination. DECREASED MOVEMENT _X__ Lie down on your left side, drink some fluids and relax. Count the movements. You need to have 10 movements in 2 hours. _X__ If you do not feel the 10 movements, call your physician. OTHER _X__ After an exam you may experience some spotting or discharge. As long as it is not bright red and heavy like a period or continues to leak as if your water broke, it is to be expected. ___ LABOR Call your physician if you experience: _X__ Painful uterine contractions every 2-3___ minutes for 1-2__ hours. _X__A gush or continuous trickle of watery discharge. COME TO THE HOSPITAL AND CALL PHYSICIAN IF: _X__ Your abdomen feels continually firm. _X__ *Bleeding is bright red and enough to saturate a pad in one hour or less. *Call 911 or go to the nearest Emergency Room for assistance. Form [id number] D: 01/20 Document Released: 01/29/2006 Document Revised: 01/18/2012 Document Reviewed: 01/29/2006 [employer] Patient Information 2012 [employer] Follow Up Care 07/07/2021 11:41:49 With:[facility] Address: [address] [place] [address] (Mon-Fri from 8:30am - 5:00pm) [place] [address]- When: Unknown Comments:Follow-up as scheduled [facility] 06-22-2021 Hospital Discharge instructions Patient Education 06/22/2021 17:31:36 Ankle Sprain (Adult) Ankle Sprain (Adult) An ankle sprain is a stretching or tearing of the ligaments that hold the ankle joint together. There are no broken bones. An ankle sprain is a common injury for both children and adults. It happens when the ankle turns, twists, or rolls in an awkward way. This can be caused by a sports injury. Or it can happen from doing something as simple as stepping on an uneven surface. Ligaments are made of tough connective tissue. Normally, ligaments stretch a certain amount and then go back to their normal place. A sprain happens when a ligament is forced to stretch more than the normal amount. A severe sprain can actually tear the ligaments. If you have a severe sprain, you may have felt or heard something like a pop when you were injured. Ankle sprains are given a grade depending on whether they are mild, moderate, or severe: Grade 1 sprain. A mild sprain with minor stretching and damage to the ligament. Grade 2 sprain. A moderate sprain where the ligament is partly torn. Grade 3 sprain. The most severe kind of sprain. The ligament is completely torn. Most sprains take about 4 to 6 weeks to heal. A severe sprain can take several months to recover. Your healthcare provider may order X-rays to be sure you don t have a fracture, or broken bone. The injured area will feel sore. Swelling and pain may make it hard to walk. You may need crutches if walking is painful. Or your provider may have you use a cast boot or air splint. This will depend on the grade of ankle sprain that you have. Home care For a Grade 1 sprain, use RICE (rest, ice, compression, and elevation): Rest your ankle. Don t walk on it. Ice should be used right away to help control swelling. Place an ice pack over the injured area for 20 minutes. Do this every 3 to 6 hours for the first 24 to 48 hours. Keep using ice packs to ease pain and swelling as needed. To make an ice pack, put ice cubes in a plastic bag that seals at the top. Wrap the bag in a clean, thin towel or cloth. Never put ice or an ice pack directly on the skin. The ice pack can be put right on the cast, bandage, or splint. As the ice melts, be careful that the cast, bandage, or splint doesn t get wet. If you have a boot, open it to apply an ice pack, unless told otherwise by your provider. Compression devices help to control swelling. They also keep the ankle from moving and support your injured ankle. These devices include dressings, bandages, and wraps. Elevate or raise your ankle above the level of your heart when sitting or lying down. This is very important for the first 48 hours. Follow the RICE guidelines for a Grade 2 sprain. This type of sprain will take longer to heal. Your provider may have you wear a splint, cast, or brace to keep your ankle from moving. If you have a Grade 3 sprain, you are at risk for long-term ankle instability. In rare cases, surgery may be needed. Your provider may have you wear a short leg cast or a walking boot for 2 to 3 weeks. After 48 hours, it may be helpful to apply heat for 20 minutes several times a day. You can do this with a heating pad or warm compress. Or you may want to go back and forth between using ice and heat. Never apply heat directly to the skin. Always wrap the heating pad or warm compress in a clean, thin towel or cloth. You may use vorh-glo-pqbztbh pain medicine (NSAIDS or nonsteroidal anti-inflammatory drugs) to control pain, unless another pain medicine was prescribed. Talk with your provider before using these medicines if you have chronic liver or kidney disease, or have ever had a stomach ulcer or gastrointestinal bleeding. Follow any rehabilitation exercises your provider gives you. These can help you be more flexible and improve your balance and coordination. This is helpful in preventing long-term ankle problems. Prevention To help prevent ankle sprains, it s important to have good strength, balance, and flexibility. Be sure to: Always warm up before you exercise or do something very active Be careful when walking or running on uneven or cracked surfaces Wear shoes that are in good condition and fit well Listen to your body s signals to slow down when you are in pain or tired Follow-up care Any X-rays you had today don t show any broken bones, breaks, or fractures. Sometimes fractures don t show up on the first X-ray. Bruises and sprains can sometimes hurt as much as a fracture. These injuries can take time to heal completely. If your symptoms don t get better or they get worse, talk with your healthcare provider. You may need a repeat X-ray. Follow up with your healthcare provider, or as advised. Check for any warning signs listed below. When to seek medical advice Call your healthcare provider right away if any of these occur: Fever of 100.4 F (38 C) or higher, or as directed by your healthcare provider [place] The injury doesn t seem to be healing The swelling comes back The cast or splint has a bad smell The plaster cast or splint gets wet or soft The fiberglass cast or splint gets wet and does not dry for 24 hours The pain or swelling increases, or redness appears Your toes become cold, blue, numb, or tingly The skin is discolored (looks blue, purple, or jackson), has blisters, or is irritated You re-injure your ankle [id number] [employer] [address] [place] [address], [place] [address]. All rights reserved. This information is not intended as a substitute for professional medical care. Always follow your healthcare professional's instructions. Follow Up Care 06/22/2021 14:41:21 With:MEDICAL, CLINIC Address: [address] [place] [id number]- When:2-4 days [facility] 06-22-2021 Hospital Discharge instructions Patient Education 06/21/2021 23:01:04 7 - Labor and Delivery Outpatient Instructions (CUSTOM) [facility] HOME-GOING INSTRUCTIONS _X_ You are to follow up with your physician as scheduled ACTIVITY ___ Bedrest _X__Activity as tolerated ___ No work/school for ___ days. ___Other PRESCRIPTION GIVEN ___Yes NAUSEA/VOMITING ___ Take small, frequent amounts of clear liquids. Avoid fruit juices and milk. ___ Increase fluid intake to a minimum of 8 ounces of fluid every hour while awake. ___ Soft diet. Rice, crackers, bananas, Jell-O, cooked carrots, applesauce. ___ [place] diet. Avoid caffeine, chocolate, alcohol, spiced/greasy foods. URINARY TRACT INFECTION ___ Drink 8-12 glasses of water every day. ___ Urinate frequently; do not limit fluids to reduce frequency of urination. ___ Call your physician if burning and frequency with urination returns after taking all your medication. ___ Call your physician if you have a temperature of 100.4 degrees Fahrenheit or higher. ___ Wipe from front to back. SIGNS OF PRE-ECLAMPSIA ___ Severe heartburn. ___ Persistent headache not relieved by Tylenol. ___ Increased in swelling of face, hands and feet. ___ Blurred vision, double vision, or spots in the eyes. ___ Persistent vomiting. ___ *Convulsions or seizures. LABOR ___ Restrict activity. ___ Drink 8-12 glasses of water every day. ___ Urinate frequently ___ Pelvic rest. No sexual intercourse/ Call your physician if you experience: ___ Increase in vaginal discharge, leaking fluid, or vaginal bleeding. ___ More than 4, 5, or 6 contractions in one hour. ___ Burning and frequency with urination. DECREASED MOVEMENT _X__ Lie down on your left side, drink some fluids and relax. Count the movements. You need to have 10 movements in 2 hours. __X_ If you do not feel the 10 movements, call your physician. OTHER ___ After an exam you may experience some spotting or discharge. As long as it is not bright red and heavy like a period or continues to leak as if your water broke, it is to be expected. ___ LABOR Call your physician if you experience: __X_ Painful uterine contractions every 3-5_ minutes for _2__ hours. _X__A gush or continuous trickle of watery discharge. COME TO THE HOSPITAL AND CALL PHYSICIAN IF: ___ Your abdomen feels continually firm. ___ *Bleeding is bright red and enough to saturate a pad in one hour or less. *Call 911 or go to the nearest Emergency Room for assistance. Form [id number] D: 01/20 Document Released: 01/29/2006 Document Revised: 01/18/2012 Document Reviewed: 01/29/2006 [employer] Patient Information 2012 [employer] Follow Up Care 06/21/2021 21:30:35 With:ADJUNCT TRAINER, CLINIC Address: [address] [place] [address] (Mon-Fri from 8:30am - 5:00pm) [facility] [place] [address]- When: Unknown Comments:Follow-up as scheduledFollow-up as scheduled [facility] 06-15-2021 Hospital Discharge instructions Patient Education 06/15/2021 16:37:26 7 - Labor and Delivery Outpatient Instructions (CUSTOM) [facility] OUT[facility] HOME-GOING INSTRUCTIONS _X_ You are to follow up with your physician as scheduled ACTIVITY ___ Bedrest _x__Activity as tolerated ___ No work/school for ___ days. ___Other SIGNS OF PRE-ECLAMPSIA ___ Severe heartburn. ___ Persistent headache not relieved by Tylenol. ___ Increased in swelling of face, hands and feet. ___ Blurred vision, double vision, or spots in the eyes. ___ Persistent vomiting. ___ *Convulsions or seizures. LABOR ___ Restrict activity. _x__ Drink 8-12 glasses of water every day. _x__ Urinate frequently ___ Pelvic rest. No sexual intercourse/ Call your physician if you experience: _x__ Increase in vaginal discharge, leaking fluid, or vaginal bleeding. _x__ More than 4, 5, or 6 contractions in one hour. _x__ Burning and frequency with urination. DECREASED MOVEMENT _x__ Lie down on your left side, drink some fluids and relax. Count the movements. You need to have 10 movements in 2 hours. _x__ If you do not feel the 10 movements, call your physician. OTHER ___ After an exam you may experience some spotting or discharge. As long as it is not bright red and heavy like a period or continues to leak as if your water broke, it is to be expected. ___ LABOR Call your physician if you experience: ___ Painful uterine contractions every ___ minutes for ___ hours. ___A gush or continuous trickle of watery discharge. COME TO THE HOSPITAL AND CALL PHYSICIAN IF: _x__ Your abdomen feels continually firm. _x__ *Bleeding is bright red and enough to saturate a pad in one hour or less. *Call 911 or go to the nearest Emergency Room for assistance. Form [id number] D: 01/20 Document Released: 01/29/2006 Document Revised: 01/18/2012 Document Reviewed: 01/29/2006 [employer] Patient Information 2012 [employer] Follow Up Care 06/15/2021 15:10:30 With:ADJUNCT TRAINER, CLINIC Address: [address] [place] [address] (Mon-Fri from 8:30am - 5:00pm) [place] [address]- Business (1) When: Unknown Comments:Follow-up as scheduled [facility] 05-21-2021 Evaluation + Plan note Diagnostic Tests PendingUrine Culture 05/21/21 [facility] 05-21-2021 Hospital Discharge instructions Patient Education 05/21/2021 09:31:07 7 - Labor and Delivery Outpatient Instructions(CUSTOM) [facility] HOME-GOING INSTRUCTIONS Keep scheduled appointment ACTIVITY ___ Bedrest _X__Activity as tolerated ___ No work/school for ___ days. ___Other PRESCRIPTION GIVEN ___Yes ___none NAUSEA/VOMITING ___ Take small, frequent amounts of clear liquids. Avoid fruit juices and milk. ___ Increase fluid intake to a minimum of 8 ounces of fluid every hour while awake. ___ Soft diet. Rice, crackers, bananas, Jell-O, cooked carrots, applesauce. ___ [place] diet. Avoid caffeine, chocolate, alcohol, spiced/greasy foods. URINARY TRACT INFECTION ___ Drink 8-12 glasses of water every day. ___ Urinate frequently; do not limit fluids to reduce frequency of urination. ___ Call your physician if burning and frequency with urination returns after taking all your medication. ___ Call your physician if you have a temperature of 100.4 degrees Fahrenheit or higher. ___ Wipe from front to back. SIGNS OF PRE-ECLAMPSIA ___ Severe heartburn. ___ Persistent headache not relieved by Tylenol. ___ Increased in swelling of face, hands and feet. ___ Blurred vision, double vision, or spots in the eyes. ___ Persistent vomiting. ___ *Convulsions or seizures. LABOR ___ Restrict activity. _X__ Drink 8-12 glasses of water every day. _X__ Urinate frequently ___ Pelvic rest. No sexual intercourse/ Call your physician if you experience: _X__ Increase in vaginal discharge, leaking fluid, or vaginal bleeding. _X__ More than 4, 5, or 6 contractions in one hour. _X__ Burning and frequency with urination. DECREASED MOVEMENT _X__ Lie down on your left side, drink some fluids and relax. Count the movements. You need to have 10 movements in 2 hours. __X_ If you do not feel the 10 movements, call your physician. OTHER __X_ After an exam you may experience some spotting or discharge. As long as it is not bright red and heavy like a period or continues to leak as if your water broke, it is to be expected. ___ LABOR Call your physician if you experience: ___ Painful uterine contractions every ___ minutes for ___ hours. ___A gush or continuous trickle of watery discharge. COME TO THE HOSPITAL AND CALL PHYSICIAN IF: X___ Your abdomen feels continually firm. X___ *Bleeding is bright red and enough to saturate a pad in one hour or less. *Call 911 or go to the nearest Emergency Room for assistance. Form [id number] D: 01/20 Document Released: 01/29/2006 Document Revised: 01/18/2012 Document Reviewed: 01/29/2006 [facility] Patient Information 2011 [employer] Follow Up Care 05/21/2021 08:11:26 With:ROMA BAUER DO, [employer] Address: When: Unknown Comments:Follow-up as scheduled [facility] 05-21-2021 Hospital Discharge instructions Patient Education 05/21/2021 01:45:34 7 - Labor and Delivery Outpatient Instructions (CUSTOM) [facility] HOME-GOING INSTRUCTIONS _X_ You are to follow up with your physician as scheduled. ACTIVITY ___ Bedrest _X__Activity as tolerated ___ No work/school for ___ days. ___Other PRESCRIPTION GIVEN ___Yes NAUSEA/VOMITING ___ Take small, frequent amounts of clear liquids. Avoid fruit juices and milk. ___ Increase fluid intake to a minimum of 8 ounces of fluid every hour while awake. ___ Soft diet. Rice, crackers, bananas, Jell-O, cooked carrots, applesauce. ___ [place] diet. Avoid caffeine, chocolate, alcohol, spiced/greasy foods. URINARY TRACT INFECTION ___ Drink 8-12 glasses of water every day. ___ Urinate frequently; do not limit fluids to reduce frequency of urination. ___ Call your physician if burning and frequency with urination returns after taking all your medication. ___ Call your physician if you have a temperature of 100.4 degrees Fahrenheit or higher. ___ Wipe from front to back. SIGNS OF PRE-ECLAMPSIA ___ Severe heartburn. ___ Persistent headache not relieved by Tylenol. ___ Increased in swelling of face, hands and feet. ___ Blurred vision, double vision, or spots in the eyes. ___ Persistent vomiting. ___ *Convulsions or seizures. LABOR ___ Restrict activity. ___ Drink 8-12 glasses of water every day. ___ Urinate frequently ___ Pelvic rest. No sexual intercourse/ Call your physician if you experience: _X__ Increase in vaginal discharge, leaking fluid, or vaginal bleeding. _X__ More than 4, 5, or 6 contractions in one hour. _X__ Burning and frequency with urination. DECREASED MOVEMENT _X__ Lie down on your left side, drink some fluids and relax. Count the movements. You need to have 10 movements in 2 hours. _X__ If you do not feel the 10 movements, call your physician. OTHER _X__ After an exam you may experience some spotting or discharge. As long as it is not bright red and heavy like a period or continues to leak as if your water broke, it is to be expected. ___ LABOR Call your physician if you experience: ___ Painful uterine contractions every ___ minutes for ___ hours. ___A gush or continuous trickle of watery discharge. COME TO THE HOSPITAL AND CALL PHYSICIAN IF: ___ Your abdomen feels continually firm. ___ *Bleeding is bright red and enough to saturate a pad in one hour or less. *Call 911 or go to the nearest Emergency Room for assistance. Form [id number] D: 01/20 Document Released: 01/29/2006 Document Revised: 01/18/2012 Document Reviewed: 01/29/2006 [facility] Patient [facility] 2012 [employer] Follow Up Care 05/20/2021 22:37:09 With:OB, CLINIC Address: When: Unknown Comments:Follow-up as scheduled [facility] 05-19-2021 Hospital Discharge instructions Patient Education 05/19/2021 14:08:24 7 - Labor and Delivery Outpatient Instructions(CUSTOM) [facility] HOME-GOING INSTRUCTIONS _X_ You are to follow up with your physician in ___ days/weeks. ACTIVITY ___ Bedrest _x__Activity as tolerated ___ No work/school for ___ days. ___Other PRESCRIPTION GIVEN ___Yes NAUSEA/VOMITING ___ Take small, frequent amounts of clear liquids. Avoid fruit juices and milk. ___ Increase fluid intake to a minimum of 8 ounces of fluid every hour while awake. ___ Soft diet. Rice, crackers, bananas, Jell-O, cooked carrots, applesauce. ___ [place] diet. Avoid caffeine, chocolate, alcohol, spiced/greasy foods. URINARY TRACT INFECTION ___ Drink 8-12 glasses of water every day. ___ Urinate frequently; do not limit fluids to reduce frequency of urination. ___ Call your physician if burning and frequency with urination returns after taking all your medication. ___ Call your physician if you have a temperature of 100.4 degrees Fahrenheit or higher. ___ Wipe from front to back. SIGNS OF PRE-ECLAMPSIA ___ Severe heartburn. ___ Persistent headache not relieved by Tylenol. ___ Increased in swelling of face, hands and feet. ___ Blurred vision, double vision, or spots in the eyes. ___ Persistent vomiting. ___ *Convulsions or seizures. LABOR ___ Restrict activity. _x__ Drink 8-12 glasses of water every day. _x__ Urinate frequently ___ Pelvic rest. No sexual intercourse/ Call your physician if you experience: ___ Increase in vaginal discharge, leaking fluid, or vaginal bleeding. ___ More than 4, 5, or 6 contractions in one hour. ___ Burning and frequency with urination. DECREASED MOVEMENT _x__ Lie down on your left side, drink some fluids and relax. Count the movements. You need to have 10 movements in 2 hours. _x__ If you do not feel the 10 movements, call your physician. OTHER _x__ After an exam you may experience some spotting or discharge. As long as it is not bright red and heavy like a period or continues to leak as if your water broke, it is to be expected. ___ LABOR Call your physician if you experience: ___ Painful uterine contractions every ___ minutes for ___ hours. ___A gush or continuous trickle of watery discharge. COME TO THE HOSPITAL AND CALL PHYSICIAN IF: _x__ Your abdomen feels continually firm. _x__ *Bleeding is bright red and enough to saturate a pad in one hour or less. *Call 911 or go to the nearest Emergency Room for assistance. Form [id number] D: 01/20 Document Released: 01/29/2006 Document Revised: 01/18/2012 Document Reviewed: 01/29/2006 [employer] Patient Information 2012 [employer] Follow Up Care 05/19/2021 11:42:25 With:ADJUNCT TRAINER, CLINIC Address: When: Unknown Comments:Follow-up as scheduled [facility] 05-09-2021 Hospital Discharge instructions Patient Education 05/09/2021 15:50:55 Contact Dermatitis Contact Dermatitis Contact dermatitis is a skin rash caused by something that touches the skin and makes it irritated and inflamed. Your skin may be red, swollen, dry, and may be cracked. Blisters may form and ooze. The rash will itch. Contact dermatitis can form on the face and neck, backs of hands, forearms, genitals, and lower legs. People can get contact dermatitis from lots of sources. These include: Plants such as poison jose alejandro, oak, or sumac Chemicals in hair dyes and rinses, soaps, solvents, waxes, fingernail nigerien, and deodorants Jewelry or watchbands made of nickel Contact dermatitis is not passed from person to person. Talk with your healthcare provider about what may have caused the rash. A type of allergy testing called patch testing may be used to discover what you are allergic to. You will need to avoid the source of your rash in the future to prevent it from coming back. Treatment is done to relieve itching and prevent the rash from coming back. The rash should go away in a few days to a few weeks. Home care Your healthcare provider may prescribe medicine to relieve swelling and itching. Follow all instructions when using these medicines. General care: Avoid anything that heats up your skin, such as hot showers or baths, or direct sunlight. This can make itching worse. Apply cold compresses to soothe your sores to help relieve your symptoms. Do this for 30 minutes 3 to 4 times a day. You can make a cold compress by soaking a cloth in cold water. Squeeze out excess water. You can add colloidal oatmeal to the water to help reduce itching. For severe itching in a small area, apply an ice pack wrapped in a thin towel. Do this for 20 minutes 3 to 4 times a day. You can also try wet dressings. One way to do this is to wear a wet piece of clothing under a dry one. Wear a damp shirt under a dry shirt if your upper body is affected. This can relieve itching and prevent you from scratching the affected area. You can also help relieve large areas of itching by taking a lukewarm bath with colloidal oatmeal added to the water. Use hydrocortisone cream for redness and irritation, unless another medicine was prescribed. You can also use benzocaine anesthetic cream or spray. Calamine lotion can also relieve mild symptoms. Use oral diphenhydramine to help reduce itching. You can buy this antihistamine at drug and grocery stores. It can make you sleepy, so use lower doses during the daytime. Or you can use loratadine. This is an antihistamine that will not make you sleepy. Do not use diphenhydramine if you have glaucoma or have trouble urinating due to an enlarged prostate. If a plant causes your rash, make sure to wash your skin and the clothes you were wearing when you came into contact with the plant. This is to wash away the plant oils that gave you the rash and prevent more or worse symptoms. Stay away from the substance or object that causes your symptoms. If you can t avoid it, wear gloves or some other type of protection. Follow-up care Follow up with your healthcare provider, or as advised. When to seek medical advice Call your healthcare provider right away if any of these occur: Spreading of the rash to other parts of your body Severe swelling of your face, eyelids, mouth, throat or tongue Trouble urinating due to swelling in the genital area Fever of 100.4 F (38 C) or higher Redness or swelling that gets worse Pain that gets worse Foul-smelling fluid leaking from the skin Yellow-brown crusts on the open blisters [id number] [employer] [address] [place] [address], [place] [address]. All rights reserved. This information is not intended as a substitute for professional medical care. Always follow your healthcare professional's instructions. Follow Up Care 05/09/2021 14:47:43 With:ADJUNCT TRAINER, CLINIC Address: When:2-4 days [facility] 05-03-2021 Hospital Discharge instructions Patient Education 05/03/2021 13:25:32 7 - Labor and Delivery Outpatient Instructions (CUSTOM) [facility] OUTPAT[facility] HOME-GOING INSTRUCTIONS _X_ You are to follow up with your physician as scheduled ACTIVITY ___ Bedrest _x__Activity as tolerated ___ No work/school for ___ days. ___Other LABOR ___ Restrict activity. _x__ Drink 8-12 glasses of water every day. _x__ Urinate frequently ___ Pelvic rest. No sexual intercourse/ Call your physician if you experience: _x__ Increase in vaginal discharge, leaking fluid, or vaginal bleeding. _x__ More than 4, 5, or 6 contractions in one hour. _x__ Burning and frequency with urination. DECREASED MOVEMENT _x__ Lie down on your left side, drink some fluids and relax. Count the movements. You need to have 10 movements in 2 hours. _x__ If you do not feel the 10 movements, call your physician. OTHER _x__ After an exam you may experience some spotting or discharge. As long as it is not bright red and heavy like a period or continues to leak as if your water broke, it is to be expected. ___ LABOR Call your physician if you experience: ___ Painful uterine contractions every ___ minutes for ___ hours. ___A gush or continuous trickle of watery discharge. COME TO THE HOSPITAL AND CALL PHYSICIAN IF: _x__ Your abdomen feels continually firm. _x__ *Bleeding is bright red and enough to saturate a pad in one hour or less. *Call 911 or go to the nearest Emergency Room for assistance. Form [id number] D: 01/20 Document Released: 01/29/2006 Document Revised: 01/18/2012 Document Reviewed: 01/29/2006 [employer] Patient Information 2012 [employer] Follow Up Care 05/03/2021 11:50:34 With:ADJUNCT TRAINER, CLINIC Address: [address] (Mon-Fri from 8:30am - 5:00pm) [place] [id number]- Business (1) When: Unknown Comments:Follow-up as scheduled [facility] 04-01-2021 Hospital Discharge instructions Patient Education 04/01/2021 01:45:13 Constipation (Adult) Constipation (Adult) Constipation means that you have bowel movements that are less frequent than usual. Stools often become very hard and difficult to pass. Constipation is very common. At some point in life, it affects almost everyone. Since everyone's bowel habits are different, what is constipation to one person may not be to another. Your healthcare provider may do tests to diagnose constipation. It depends on what he or she finds when evaluating you. Symptoms of constipation include: Abdominal pain Bloating Vomiting Painful bowel movements Itching, swelling, bleeding, or pain around the anus Causes Constipation can have many causes. These include: Diet low in fiber Too much dairy Not drinking enough liquids Lack of exercise or physical activity (especially true for older adults) Changes in lifestyle or daily routine, including , aging, work, and travel Frequent use or misuse of laxatives Ignoring the urge to have a bowel movement or delaying it until later Medicines, such as certain prescription pain medicines, iron supplements, antacids, certain antidepressants, and calcium supplements Diseases like irritable bowel syndrome, bowel obstructions, stroke, diabetes, thyroid disease, Parkinson disease, hemorrhoids, and colon cancer Complications Potential complications of constipation can include: Hemorrhoids Rectal bleeding from hemorrhoids or anal fissures (skin tears) Hernias Dependency on laxatives Chronic constipation Fecal impaction, a severe form of constipation in which a large amount of hard stool is in your rectum that you can't pass Bowel obstruction or perforation Home care All treatment should be done after talking with your healthcare provider. This is especially true if you have another medical problems, are taking prescription medicines, or are an older adult. Treatment most often involves lifestyle changes. You may also need medicines. Your healthcare provider will tell you which will work best for you. Follow the advice below to help avoid this problem in the future. Lifestyle changes These lifestyle changes can help prevent constipation: Diet. Eat a high-fiber diet, with fresh fruit and vegetables, and reduce dairy intake, meats, and processed foods Fluids. It's important to get enough fluids each day. Drink plenty of water when you eat more fiber. If you are on diet that limits the amount of fluid you can have, talk about this with your healthcare provider. Regular exercise. Check with your healthcare provider first. Medicines Take any medicines as directed. Some laxatives are safe to use only every now and then. Others can be taken on a regular basis. While laxatives don't cause bowel dependence, they are treating the symptoms. So your constipation may return if you don't make other changes. Talk with your healthcare provider or pharmacist if you have questions. Prescription pain medicines can cause constipation. If you are taking this kind of medicine, ask your healthcare provider if you should also take a stool softener. Medicines you may take to treat constipation include: Fiber supplements Stool softeners Laxatives Enemas Rectal suppositories Follow-up care Follow up with your healthcare provider if symptoms don't get better in the next few days. You may need to have more tests or see a specialist. Call 911 Call 911 if any of these occur: Trouble breathing Stiff, rigid abdomen that is severely painful to touch Confusion Fainting or loss of consciousness Rapid heart rate Chest pain When to seek medical advice Call your healthcare provider right away if any of these occur: Fever of 100.4 F (38 C) or higher, or as directed by your healthcare provider Failure to resume normal bowel movements Pain in your abdomen or back gets worse Nausea or vomiting Swelling in your abdomen Blood in the stool Black, tarry stool Involuntary weight loss Weakness [id number] [employer]. [address] [place] [address]. All rights reserved. This information is not intended as a substitute for professional medical care. Always follow your healthcare professional's instructions. Follow Up Care 04/01/2021 01:15:58 With:Follow up with primary care provider Address:Unknown When:2-4 days With:MEDICAL, CLINIC Address: [address] [place] [phone]- When:2-4 days [facility] 03-27-2021 Hospital Discharge instructions Patient Education 03/27/2021 09:07:02 , New Dx Your exam today shows that you are . symptoms During your body s hormones change. This causes physical and emotional changes. This is normal. Knowing what to expect is important for your piece of mind and so you know when to seek help for a problem. Here are some of the most common symptoms: Morning sickness or nausea. This can happen any time of the day or night. Tender, swollen breasts Need to urinate frequently Tiredness or fatigue Dizziness Indigestion or heartburn Food cravings or turn-offs Constipation Emotional changes. This can range from anxiety to excitement to depression. General care for a healthy Here are things you can do to help make sure your baby is born healthy: Rest when you feel tired. This is especially true in the later months of . Drink more fluids. Your body needs more fluids than you may be used to. Drink 8 to10 glasses of juice, milk, or water every day. Eat well-balanced meals. Eat at regular times to give your body enough protein. You can expect to gain about 30 pounds during the . Don t try to diet or lose weight while you are . Take a vitamin every day. This helps you meet the extra nutritional needs of . Don t take any other medicine during your unless your healthcare provider tells you to. This includes prescription medicines and those you buy over the counter. Many medicines can harm the growing baby. If you have nausea or vomiting, don t eat greasy or fried foods. Eat several smaller meals throughout the day rather than 3 large meals. If you smoke, you must stop. The nicotine you breathe in goes right to the baby. Stay away from alcohol, even in moderate amounts. Daily drinking will harm your baby and can cause permanent brain damage. Don t use recreational drugs, especially cocaine, crack, and heroin. These will harm your baby. Also avoid marijuana. If you were using recreational drugs or prescribed medicine when you found out that you were , talk with your healthcare provider about possible effects on your growing baby. If you have medical problems that you need to take medicine for, talk with your healthcare provider. Follow-up care Call your healthcare provider to arrange for care. care is important. You can see your family provider, a specialist (church business administrator), or a primary care clinic. When to seek medical advice Call your healthcare provider right away if any of these occur: Vaginal bleeding Pain in your belly (abdomen) or back that is moderate or severe Lots of vomiting, or you can t keep any fluids down for 6 hours Burning feeling when you urinate Headache, dizziness, or rapid weight gain Fever Vision changes or blurred vision [phone] [employer]. [address] [place] [address]. All rights reserved. This information is not intended as a substitute for professional medical care. Always follow your healthcare professional's instructions. Follow Up Care 03/21/2021 10:44:13 With:[facility] Address: [address] [place] [phone]- Business (1) When:2-4 days With:[facility] ([facility]) Address: [address] [place] [phone]- [phone] Business (1) When:2-4 days With:[facility] Address: [address] [place] [phone] Business (1) When:2-4 days With:[facility] Address: [address] [phone]- Business (1) When:2-4 days With:MEDICAL, CLINIC Address: [address] [place] [phone]- When:2-4 days [facility] 03-12-2021 Hospital Discharge instructions Patient Education 03/11/2021 22:27:44 7 - Labor and Delivery Outpatient Instructions [facility] HOME-GOING INSTRUCTIONS _X_ You are to follow up with your physician in ___ days/weeks. ACTIVITY ___ Bedrest _X__Activity as tolerated ___ No work/school for ___ days. ___Other PRESCRIPTION GIVEN _X__Yes ____Flagyl NAUSEA/VOMITING ___ Take small, frequent amounts of clear liquids. Avoid fruit juices and milk. ___ Increase fluid intake to a minimum of 8 ounces of fluid every hour while awake. ___ Soft diet. Rice, crackers, bananas, Jell-O, cooked carrots, applesauce. ___ [place] diet. Avoid caffeine, chocolate, alcohol, spiced/greasy foods. URINARY TRACT INFECTION ___ Drink 8-12 glasses of water every day. ___ Urinate frequently; do not limit fluids to reduce frequency of urination. ___ Call your physician if burning and frequency with urination returns after taking all your medication. ___ Call your physician if you have a temperature of 100.4 degrees Fahrenheit or higher. ___ Wipe from front to back. SIGNS OF PRE-ECLAMPSIA ___ Severe heartburn. ___ Persistent headache not relieved by Tylenol. ___ Increased in swelling of face, hands and feet. ___ Blurred vision, double vision, or spots in the eyes. ___ Persistent vomiting. ___ *Convulsions or seizures. LABOR ___ Restrict activity. __X_ Drink 8-12 glasses of water every day. _X__ Urinate frequently ___ Pelvic rest. No sexual intercourse/ Call your physician if you experience: _X__ Increase in vaginal discharge, leaking fluid, or vaginal bleeding. _X__ More than 4, 5, or 6 contractions in one hour. _X__ Burning and frequency with urination. DECREASED MOVEMENT ___ Lie down on your left side, drink some fluids and relax. Count the movements. You need to have 10 movements in 2 hours. ___ If you do not feel the 10 movements, call your physician. OTHER _X__ After an exam you may experience some spotting or discharge. As long as it is not bright red and heavy like a period or continues to leak as if your water broke, it is to be expected. ___ LABOR Call your physician if you experience: ___ Painful uterine contractions every ___ minutes for ___ hours. ___A gush or continuous trickle of watery discharge. COME TO THE HOSPITAL AND CALL PHYSICIAN IF: ___ Your abdomen feels continually firm. ___ *Bleeding is bright red and enough to saturate a pad in one hour or less. *Call 911 or go to the nearest Emergency Room for assistance. Form 828232 D: 01/20 Document Released: 01/29/2006 Document Revised: 01/18/2012 Document Reviewed: 01/29/2006 [facility] Patient Information 2012 [employer] Follow Up Care 03/11/2021 20:28:39 With:[facility] CLINIC Address: [address] [place] [address] (Mon-Fri from 8:30am - 5:00pm) [facility] [place] [address]- Business (1) When: Unknown Comments:Follow-up as scheduled [facility] 03-11-2021 Evaluation + Plan note Diagnostic Tests PendingUrine Culture 03/11/21Chlamydia trachomatis PCR 03/11/21N. gonorrhoeae PCR 03/11/21 [facility] 02-22-2021 History of Present illness Narrative DATE OF SERVICE: 02/21/2021 REASON FOR VISIT: Rash on the face. HISTORY OF PRESENT ILLNESS: This is a 25-year-old female who was using a facewash mixed with bleach to apply on the rash on her forearm, but she used the same mixture and applied on her face as well. It happened yesterday and now her face is burning and red, and she feels itchy on the face. No other problem at this visit. She is for about 18 weeks. REVIEW OF SYSTEMS: Normal. ALLERGIES: NKA. MEDICATIONS: vitamins. PHYSICAL EXAMINATION: She is awake, alert, not in distress. No dyspnea. Temperature 98.2, blood pressure 138/55, pulse 89, respirations 16, pulse oximetry 100%. Pain score 6/10. HEENT exam reveals generalized erythema of the face on both sides, but no blister or pustule, no skin excoriation. Chest clear to auscultation. Heart regular rate and rhythm. She does not have any symptoms related to her today. ASSESSMENT: Contact dermatitis of the face, with . PLAN: Clinical findings discussed with the patient in detail. I explained to her that with her I cannot treat her with oral steroid, but I prescribed her 1% hydrocortisone cream to apply twice a day, 15 g with no refills. She should follow with her doctor for further evaluation and care. I also want her to discuss this with her OB as well and get confirmation with her OB that she can use topical steroids. She understands and agrees. Hoang Sweeney MD /[id number] [employer]SI File#: [id number] END OF DOCUMENT / CHANGE LOG FOLLOWS Last Edited By [employer]. Signed By Hoang Sweeney MD #PAWPR Hoang Sweeney MD #PAWPR on 02/24/2021 13:40 ET on 02/24/2021 13:40 ET Revision Number - 2 ^^^ Verified/Reviewed by 02/24/21 1340 LUCHO [facility] PATIENT NAME: RONNA AGUAYO [address] [facility] [address] [place] MEDICAL REC #: [id number] [place] [address] [facility] REPORT STATCARE PHYSICIAN documented in this encounter [facility] 01-31-2021 Hospital Discharge instructions Patient Education 01/31/2021 12:23:35 COVID-19 Prevent the Spread of COVID-19 If You Are Sick (07/01/2019)(CUSTOM) Prevent the Spread of COVID-19 If You Are Sick Accessible version: https://www.cdc.gov/coronavirus/2019-ncov/if-you -are-sick/gymwc-ookg-hivv.html If you are sick with COVID-19 or think you might have COVID-19, follow the steps below to help protect other people in your home and community. Stay home except to get medical care. Stay home. Most people with COVID-19 have mild illness and are able to recover at home without medical care. Do not leave your home, except to get medical care. Do not visit public areas. Take care of yourself. Get rest and stay hydrated. Get medical care when needed. Call your doctor before you go to their office for care. But, if you have trouble breathing or other concerning symptoms, call 911 for immediate help. Avoid public transportation, ride-sharing, or taxis. Separate yourself from other people and pets in your home. As much as possible, stay in a specific room and away from other people and pets in your home. Also, you should use a separate bathroom, if available. If you need to be around other people or animals in or outside of the home, wear a cloth face covering. See COVID-19 and Animals if you have questions about pets: https://www.cdc.gov/coronavirus/2019ncov/faq.htm l#GZDTM14mdvdcev Monitor your symptoms. Common symptoms of COVID-19 include fever and cough. Trouble breathing is a more serious symptom that means you should get medical attention. Follow care instructions from your healthcare provider and local health department. Your local health authorities will give instructions on checking your symptoms and reporting information. If you develop emergency warning signs for COVID-19 get medical attention immediately. Emergency warning signs include*: Trouble breathing Persistent pain or pressure in the chest New confusion or not able to be woken Bluish lips or face *This list is not all inclusive. Please consult your medical provider for any other symptoms that are severe or concerning to you. Call 911 if you have a medical emergency. If you have a medical emergency and need to call 911, notify the reconciliation machine operator that you have or think you might have, COVID-19. If possible, put on a facemask before medical help arrives Call ahead before visiting your doctor. Call ahead. Many medical visits for routine care are being postponed or done by phone or telemedicine. If you have a medical appointment that cannot be postponed, call your doctor s office. This will help the office protect themselves and other patients. If you are sick, wear a cloth covering over your nose and mouth. You should wear a cloth face covering over your nose and mouth if you must be around other people or animals, including pets (even at home). You don t need to wear the cloth face covering if you are alone. If you can t put on a cloth face covering (because of trouble breathing for example), cover your coughs and sneezes in some other way. Try to stay at least 6 feet away from other people. This will help protect the people around you. Note: During the COVID-19 pandemic, medical grade facemasks are reserved for healthcare workers and some first responders. You may need to make a cloth face covering using a scarf or bandana. Cover your coughs and sneezes. Cover your mouth and nose with a tissue when you cough or sneeze. Throw used tissues in a lined trash can. Immediately wash your hands with soap and water for at least 20 seconds. If soap and water are not available, clean your hands with an alcohol-based hand sheet metal apprentice that contains at least 60% alcohol. Clean your hands often. Wash your hands often with soap and water for at least 20 seconds. This is especially important after blowing your nose, coughing, or sneezing; going to the bathroom; and before eating or preparing food. Use hand sheet metal apprentice if soap and water are not available. Use an alcohol-based hand sheet metal apprentice with at least 60% alcohol, covering all surfaces of your hands and rubbing them together until they feel dry. Soap and water are the best option, especially if your hands are visibly dirty. \ Avoid touching your eyes, nose, and mouth with unwashed hands. Avoid sharing personal household items. Do not share dishes, drinking glasses, cups, eating utensils, towels, or bedding with other people in your home. Wash these items thoroughly after using them with soap and water or put them in the sterile process coordinator. Clean all high-touch surfaces everyday. Clean and disinfect high-touch surfaces in your sick room and bathroom. Let someone else clean and disinfect surfaces in common areas, but not your bedroom and bathroom. If a caregiver or other person needs to clean and disinfect a sick person s bedroom or bathroom, they should do so on an as-needed basis. The caregiver/other person should wear a mask and wait as long as possible after the sick person has used the bathroom High-touch surfaces include phones, remote controls, counters, tabletops, doorknobs, bathroom fixtures, toilets, keyboards, tablets, and bedside tables. Clean and disinfect areas that may have blood, stool, or body fluids on them. Use household sound cutter and disinfectants. Clean the area or item with soap and water or another detergent if it is dirty. Then use a household disinfectant. Be sure to follow the instructions on the label to ensure safe and effective use of the product. Many products recommend keeping the surface wet for several minutes to ensure germs are killed. Many also recommend precautions such as wearing gloves and making sure you have good ventilation during use of the product. Most EPA-registered household disinfectants should be effective. How to discontinue home isolation. People with COVID-19 who have stayed home (home isolated) can stop home isolation under the following conditions: If you will not have a test to determine if you are still contagious, you can leave home after these three things have happened: You have had no fever for at least 72 hours (that is three full days of no fever without the use of medicine that reduces fevers) AND other symptoms have improved (for example, when your cough or shortness of breath has improved) AND at least 10 days have passed since your symptoms first appeared. If you will be tested to determine if you are still contagious, you can leave home after these three things have happened: You no longer have a fever (without the use of medicine that reduces fevers) AND other symptoms have improved (for example, when your cough or shortness of breath has improved) AND you received two negative tests in a row, 24 hours apart. Your doctor will follow CDC guidelines. In all cases, follow the guidance of your healthcare provider and local health department. The decision to stop home isolation should be made in consultation with your healthcare provider and state and local health departments. Local decisions depend on local circumstances. cdc.gov/coronavirus 01/31/2021 10:08:34 URI, Viral, No Abx (Adult) Viral Upper Respiratory Illness (Adult) You have a viral upper respiratory illness (URI), which is another term for the common cold. This illness is contagious during the first few days. It is spread through the air by coughing and sneezing. It may also be spread by direct contact (touching the sick person and then touching your own eyes, nose, or mouth). Frequent handwashing will decrease risk of spread. Most viral illnesses go away within 7 to 10 days with rest and simple home remedies. Sometimes the illness may last for several weeks. Antibiotics will not kill a virus, and they are generally not prescribed for this condition. Home care If symptoms are severe, rest at home for the first 2 to 3 days. When you resume activity, don't let yourself get too tired. Don't smoke. If you need help stopping, talk with your healthcare provider. Avoid being exposed to cigarette smoke (yours or others ). You may use acetaminophen or ibuprofen to control pain and fever, unless another medicine was prescribed. If you have chronic liver or kidney disease, have ever had a stomach ulcer or gastrointestinal bleeding, or are taking blood-thinning medicines, talk with your healthcare provider before using these medicines. Aspirin should never be given to anyone under 18 years of age who is ill with a viral infection or fever. It may cause severe liver or brain damage. Your appetite may be poor, so a light diet is fine. Stay well hydrated by drinking 6 to 8 glasses of fluids per day (water, soft drinks, juices, tea, or soup). Extra fluids will help loosen secretions in the nose and lungs. Hxkx-zpg-qrxurvx cold medicines will not shorten the length of time you re sick, but they may be helpful for the following symptoms: cough, sore throat, and nasal and sinus congestion. If you take prescription medicines, ask your healthcare provider or pharmacist which kwsb-avr-bymzxyl medicines are safe to use. (Note: Don't use decongestants if you have high blood pressure.) Follow-up care Follow up with your healthcare provider, or as advised. When to seek medical advice Call your healthcare provider right away if any of these occur: Cough with lots of colored sputum (mucus) Severe headache; face, neck, or ear pain Difficulty swallowing due to throat pain Fever of 100.4 F (38 C) or higher, or as directed by your healthcare provider Call 911 Call 911 if any of these occur: Chest pain, shortness of breath, wheezing, or difficulty breathing Coughing up blood Very severe pain with swallowing, especially if it goes along with a muffled voice [phone] [employer]. [address] [place] [address]. All rights reserved. This information is not intended as a substitute for professional medical care. Always follow your healthcare professional's instructions. Follow Up Care 01/31/2021 09:55:05 With:[facility] Address: [phone] When:2-4 days [facility] 01-31-2021 HCoV 229E RNA AMY+non-probe Ql (Nph) Not Detected *NA* (01/31/21 10:10 AM) [facility]ero SS 11-22-2020 History of Present illness Narrative DATE OF SERVICE: 11/19/2020 REASON FOR VISIT: Body ache, left abdominal pain. HISTORY OF PRESENT ILLNESS: This is a 25-year-old female who recently found out that she was . She did home test 2 times and then later on she went to [facility] and had confirmation on her . She is about 5 weeks now. She has not seen OB yet but patient stated that she knows 1 OB and will try to go and get signed up. She is feeling some body ache, some pain in the left flank and is not sleeping well. No nausea, vomiting. No diarrhea. No cough, congestion or fever. No discharge. No vaginal bleeding. Denied any dysuria. She also has skin eczema on the lower part of the right leg. No other problem at this visit. REVIEW OF SYSTEMS: Review of other systems normal. PAST MEDICAL HISTORY, FAMILY HISTORY, SOCIAL HISTORY: Reviewed. ALLERGIES: SEASONAL ALLERGIES AND PEANUTS. PHYSICAL EXAMINATION: On examination, she is awake, alert, not in distress. No dyspnea. Temperature 98.2, blood pressure 120/80, pulse 90, respiratory rate 16, pulse oximetry 100% on room air, pain score 4/10. HEENT: Unremarkable. Chest: Clear to auscultation. No crackles, wheezes or rhonchi. Heart: Regular rhythm. No CVA tenderness. Abdomen: Soft. Nontender. No guarding. No distension. Liver and spleen were not palpable. No CVA tenderness. Back exam also normal. Overall, the exam did not show any positive findings. She had an eczema like rash on the lower part of the right leg. No blister or pustule. Urine dipstick was negative for leukocyte and nitrites, slightly positive for blood and protein. ASSESSMENT: . PLAN: Clinical findings discussed with the patient in detail. I explained to her of her , she should not smoke or drink. Not to do any heavy duty. I explained to her the different abnormal symptoms. If there are any abnormal symptoms, she must go to the hospital. Regarding seeing an ADJUNCT TRAINER, the patient stated that she knows [address] place in [place] but she will go and try to get established with that OB. Regarding the eczema, I told her about lyiy-upx-zssxcjd cortisone cream. I explained to her that I do not want to prescriber any strong cream, but ysrf-aag-vrathaw hydrocortisone cream should really help. I prescribed her vitamin 1 tablet daily, 30 tablets, with no refill and instructed her to see OB as soon as possible. The patient understands and agrees. Her questions were answered to her satisfaction. Hoang Sweeney MD PP/[id number] SSI File#: [id number] END OF DOCUMENT / CHANGE LOG FOLLOWS Last Edited By [employer]. Signed By Hoang Sweeney MD #PAWPR Hoang Sweeney MD #LUCHO on 11/29/2020 18:00 ET on 11/29/2020 18:00 ET Revision Number - 2 ^^^ Verified/Reviewed by 11/29/20 Shaista YEPEZ [facility] PATIENT NAME: RONNA AGUAYO [address] [facility] [address] [place] MEDICAL REC #: [id number] [place] [address] [facility] REPORT STATCARE PHYSICIAN documented in this encounter [facility] 09-27-2020 History of Present illness Narrative DATE OF SERVICE: 09/27/2020 HISTORY OF PRESENT ILLNESS: This is a 24-year-old female who presents today with a pale red rash scattered all over her body and neck. Patient states that it started about September 25. ALLERGIES: No known drug allergies. PAST MEDICAL HISTORY: Positive for anemia, frequent headaches, childhood seizures, depression, eczema, mental health issues. Nonsmoker, nondrinker. FAMILY HISTORY: Unremarkable. SOCIAL HISTORY: Unremarkable. PHYSICAL EXAMINATION: Weight 121 pounds. Blood pressure 102/70, pulse 78, respirations 16, temperature 98.6, pulse oximetry 98. This is a 24-year-old female. When I entered the room, the patient narrowed her eyes at me and looked very angry. I started talking to the patient who sat down and asked her about her history, and she immediately became hostile to the point that I asked her what was wrong. I said you seem very hostile, is something wrong. Then she said no, and then she said I have eczema. Haven't you every seen eczema. 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 At that point, it became apparent that she was having some sort of psychological problem here. I told the patient that I was very much aware of what eczema looked like but that I had asked her if she had any idea of what was going on, and if this was her typical eczema, why did she tell me no. The patient at that point did not seem to know what to say, so she let me see the rash very begrudgingly. On her neck, it is excoriated. It is very difficult to tell what it is. On her back, she has a series of punctate lesions that are maculopapular. I asked her if she had been on any medicines that were new or if she tried any new drinks or smoothies or anything that might have had something different in it, but the patient was just too angry to answer my questions. So, at this point, it was just ridiculous to try to carry on a pleasant conversation with a person who was absolutely not participating. I told the patient I could write her some medications that should get rid of the rash, at least get her some relief from it, and that perhaps she needed to get into a wireless retail manager or just follow up with her family doctor. The patient was again quite hostile. She said can I leave here? I told her go right ahead, there's the door, and she said well, give me my prescription. I said if you want your prescriptions, you are going to have to wait until I write them out, and then you have to sign for them. So, we did that, and as soon as she signed for it, she said thank you so much and have a wonderful day. I wished her a wonderful day, and she basically slammed the door into the wall and then grabbed back at it like she did not mean to do that, and then stomped right on down the [place] and out of the building. I have no idea what set her off, but I think she does have a history of mental health issues, and I think it was just an irrational response. She had not been like that with my nurse, and she immediately took that stance when I came in the room, so I am not sure exactly what happened here, but the patient was treated, and I did give her a Medrol Dosepak and loratadine. Recommended that she use Dial soap, which also set her off because she said it dries her out, that I obviously didn't know what I was talking about. I asked her if she needed a slip to be off work, and she told me no, and then changed at the last minute, so I put her off work September 28, and she was already off today. DO ROGER [id number] [facility] File#: [id number] END OF DOCUMENT / CHANGE LOG FOLLOWS Last Edited By Elec. Signed By Nishi Munoz Lisa D DO #[email or web address] on 10/01/2020 08:50 ET on 10/01/2020 08:50 ET Revision Number - 2 ^^^ Verified/Reviewed by 10/01/20 0850 [place] [facility] PATIENT NAME: RONNA AGUAYO [address] MEDICAL REC #: [id number] [place] [address] [facility] REPORT STATCARE PHYSICIAN documented in this encounter [facility] 06-12-2020 History of Present illness Narrative DATE OF SERVICE: 06/11/2020 SUBJECTIVE: This is a 24-year-old female presenting with chief complaint of 2-week history of low back pain, predominantly on the left side. She is concerned that it may be sciatica. She has been vomiting over the last day or so as well and is unsure if that may have aggravated things. Rates the pain as a 7 out of 10 on the pain scale. It does not go down her arms or legs at all. No incontinence of bowel or bladder. No weakness. No numbness or tingling. No injury to the area that she can think of. PAST MEDICAL HISTORY: Significant for seizure, depression. PAST SURGICAL HISTORY: None. SOCIAL HISTORY: No tobacco or alcohol use. Last menstrual period was 3 weeks ago, she thinks but she is not 100% sure. She is not on control. MEDICATIONS: Anxiety medicine. ALLERGIES: PEANUTS and SEASONAL. No other drug allergies indicated. No other allergies listed. REVIEW OF SYSTEMS: Constitutional: No fevers, chills, fatigue. Skin: No redness, arm swelling, bruising. Musculoskeletal: Left-sided low back pain, worse with certain movements because it is like a grinding sensation in the area when she is walking. Does not go down the arms or legs. Neurologic: No numbness, tingling, or weakness. PHYSICAL EXAMINATION: Blood pressure 113/56, pulse 61, respiratory rate 16, temperature 98.6. Pulse oximetry is 100%. General Appearance: Patient is seen in exam room, no acute distress. Alert and oriented x3. Pulmonary: Lungs are clear. No wheezing, rales, or rhonchi. Normal respiratory effort is observed. Cardiac: Normal rate and rhythm. No murmurs or gallops auscultated. Skin exam overall is within normal limits. Abdomen: Soft, nontender. Normal bowel sounds auscultated in all 4 quadrants. Musculoskeletal: Mild tenderness over the L4-L5 area of the lumbar spine, but no tenderness over the paraspinal areas bilaterally. She has got 5/5 strength in bilateral upper and lower extremities. Neurologic: She is neurovascularly intact. DIAGNOSTIC: Urine test was ordered. It came back negative. Lumbar spine with oblique section was obtained. My interpretation is no acute process. Radiology overread will be performed. ASSESSMENT AND PLAN/DIAGNOSIS: Low back strain. Patient was given a note to be off of work tomorrow, but she can go back on Sunday. Recommended Tylenol, Motrin, fluids, rest, and heating pad to the back. Patient agreeable. Stable on discharge. All questions answered. Micaela Guy PA-C [id number] [facility] File#: [id number] END OF DOCUMENT / CHANGE LOG FOLLOWS Last Edited By Elec. Signed By Micaela Guy PAC #WASTH Micaela Guy PAC #WASTH on 06/14/2020 13:38 ET on 06/14/2020 13:38 ET Revision Number - 2 ^^^ Verified/Reviewed by 06/14/20 1338 [place] [facility] PATIENT NAME: RONNA AGUAYO [address] MEDICAL REC #: [id number] [place] [address] [facility] REPORT STATCARE PHYSICIAN documented in this encounter [facility] 02-18-2020 History of Present illness Narrative DATE OF SERVICE: 02/18/2020 REASON OF VISIT: Sore throat and left ear pain. HISTORY OF PRESENT ILLNESS: This is a 24-year-old female presenting with left ear pain that started last night and this morning she started having sore throat, slightly hard to swallow. No cough, congestion, no drainage. Upon detailed questioning, patient uses Q-Tips on a regular basis and she is quite aggressive in using Q-Tips in the ear. REVIEW OF OTHER SYSTEMS: Normal. PAST MEDICAL HISTORY, FAMILY HISTORY, SOCIAL HISTORY: Reviewed. ALLERGIES: NKA. MEDICATIONS: None. PHYSICAL EXAMINATION: She is awake, alert, not in distress. No dyspnea. Temperature 97.3, blood pressure 125/71, pulse 71, respirations 14, pulse oximetry 99% on room air. Pain score 8/10. HEENT: Examination revealed throat was slightly injected. Right ear was normal. Left ear canal was significantly inflamed and swollen. There was significant tenderness at the external meatus and motion of the left earlobe was painful. Eardrum was not well-visualized. Chest: Clear to auscultation. Heart: Regular rate and rhythm. ASSESSMENT: Left otitis externa with acute pharyngitis. PLAN: Clinical findings were discussed with the patient in detail. I explained to the patient that her left ear canal is significantly inflamed. I gave her Keflex 500 mg 2 times a day for 7 days, and Cortisporin eardrops to use 4 hours to 6 hours for 1 week with no refills. I gave her strict instructions to stop using Q-Tips to the ear. For the throat, she should do salt-water gargles, take lozenges. Tylenol and Motrin as needed. Follow with her doctor for further evaluation and care. Patient understands and agrees. Hoang Sweeney MD [id number] [facility] File#: [id number] END OF DOCUMENT / CHANGE LOG FOLLOWS Last Edited By Elec. Signed By Hoang Sweeney MD #PAWPR Hoang Sweeney MD #PAWPR on 02/18/2020 19:09 ET on 02/18/2020 19:09 ET Revision Number - 2 ^^^ Verified/Reviewed by 02/18/20 1909 [place] [facility] PATIENT NAME: RONNA AGUAYO [address] [facility] [address] MEDICAL REC #: [id number] [place] [address] [facility] REPORT STATCARE PHYSICIAN documented in this encounter [facility] 12-05-2019 History of Present illness Narrative DATE OF SERVICE: 12/04/2019 REASON FOR VISIT: Headache, nausea. HISTORY OF PRESENT ILLNESS: This is a 24-year-old female with a headache for the last 2 days. Did not have any fever. No cough or congestion. No sore throat. No shortness of breath. Denies any body aches. Does not feel tired or fatigued. This morning she has some nausea but no vomiting, no diarrhea. Eating and drinking well. Symptoms come and go. Not very intense. REVIEW OF SYSTEMS: Review of all other systems normal. PAST MEDICAL HISTORY, FAMILY HISTORY AND SOCIAL HISTORY: Reviewed. ALLERGIES: NKDA. MEDICATIONS: Reviewed. PHYSICAL EXAMINATION: She is awake, alert, not in distress. No dyspnea. Temperature 98.6, blood pressure 108/65, pulse 78, respirations 16, pulse oximetry 98% on room air. Pain score is 6/10. HEENT is unremarkable. Chest: Clear to auscultate. Heart: Regular rate and rhythm. Abdomen: Soft, nontender, no guarding, not distended. Liver and spleen not palpable. Neurologically grossly intact. Overall the exam is quite normal. ASSESSMENT: Nausea. PLAN: Clinical findings were discussed with the patient in detail. I explained to her that my physical exam was quite normal. There are no significant findings. Symptoms could be from early or mild gastroenteritis. I want her to be on BRAT diet or soft diet for now. Maintain hydration. I gave her Zofran 4 mg ODT 1 tablet every 6 hours as needed for nausea and vomiting, 10-tablet prescription to keep. If she continues to feel nausea, she can fill the Zofran. If not, then she may not need to fill. If there is any change in the symptoms, she needs to be rechecked. I gave her a slip that she was seen here today for a doctor's visit and had a normal exam, and she is okay to return to work as of today. The patient understands and agrees. Hoang Sweeney MD [id number] [facility] File#: [id number] END OF DOCUMENT / CHANGE LOG FOLLOWS Last Edited By Elec. Signed By Hoang Sweeney MD #PAWPR Hoang Sweeney MD #PAWPR on 12/05/2019 17:35 ET on 12/05/2019 17:35 ET Revision Number - 2 ^^^ Verified/Reviewed by 12/05/19 1735 [place] [facility] PATIENT NAME: RONNA AGUAYO [address] MEDICAL REC #: [id number] [place] [address] [facility] REPORT STATCARE PHYSICIAN documented in this encounter [facility] Evaluation + Plan note No data available for this section [facility] Evaluation note Diagnosis Odontalgia- Primary Unspecified disorder of the teeth and supporting structures [facility] Acute otitis media, right- Primary Unspecified otitis media [facility] Sore throat- Primary Acute pharyngitis URI, acute Acute upper respiratory infections of unspecified site documented in this encounter [facility] Discharge instructions No data available for this section [facility] Progress note No data available for this section [facility] Summary Purpose Family History No Family History Records FoundNo Family History Records Found No data available for this section No data available for this section No Family History Records FoundNo Family History Records FoundNo Family History Records Found Advance Directives No Advanced Directives Records FoundDocuments on File Type Date Recorded Patient Field Representative/Health Education Expl anation Advance Directive(s) 08/18/2021 12:53 PM Health Concerns Infection Onset Date Last Indicated Resolved Time COVID-19 Rule-Out 08/18/2021 08/18/2021 08/18/2021 2:42 PM EDT Additional Source Comments Care Team (unrecognized sect ion and content) 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 Relationship Specialty Start Date End Date Elyssa Lance [address] [place] [id number] PCP - General Family Practice 12/14/16 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 Relationship Specialty Start Date End Date Elyssa Lance [address] [place] [id number] PCP - General Family Practice 12/14/16 Source Comments (unrecognize d section and content) In the event this informatio n is protected by the Federal Confidentiality of Alcohol and Drug Abuse Patient Records regulations: The Federal rules restrict any use of the information to criminally investigate or prosecute any alcohol or drug abuse patient.[facility] the event this information is protected by the Federal Confidentiality of Alcohol and Drug Abuse Patient Records regulations: The Federal rules restrict any use of the information to criminally investigate or prosecute any alcohol or drug abuse patient.[facility] the event this information is protected by the Federal Confidentiality of Alcohol and Drug Abuse Patient Records regulations: The Federal rules restrict any use of the information to criminally investigate or prosecute any alcohol or drug abuse patient.[facility] the event this information is protected by the Federal Confidentiality of Alcohol and Drug Abuse Patient Records regulations: The Federal rules restrict any use of the information to criminally investigate or prosecute any alcohol or drug abuse patient.[facility] the event this information is protected by the Federal Confidentiality of Alcohol and Drug Abuse Patient Records regulations: The Federal rules restrict any use of the information to criminally investigate or prosecute any alcohol or drug abuse patient.[facility] the event this information is protected by the Federal Confidentiality of Alcohol and Drug Abuse Patient Records regulations: The Federal rules restrict any use of the information to criminally investigate or prosecute any alcohol or drug abuse patient.[facility] the event this information is protected by the Federal Confidentiality of Alcohol and Drug Abuse Patient Records regulations: The Federal rules restrict any use of the information to criminally investigate or prosecute any alcohol or drug abuse patient.[facility] the event this information is protected by the Federal Confidentiality of Alcohol and Drug Abuse Patient Records regulations: The Federal rules restrict any use of the information to criminally investigate or prosecute any alcohol or drug abuse patient.[facility] the event this information is protected by the Federal Confidentiality of Alcohol and Drug Abuse Patient Records regulations: The Federal rules restrict any use of the information to criminally investigate or prosecute any alcohol or drug abuse patient.[facility] the event this information is protected by the Federal Confidentiality of Alcohol and Drug Abuse Patient Records regulations: The Federal rules restrict any use of the information to criminally investigate or prosecute any alcohol or drug abuse patient.[facility] the event this information is protected by the Federal Confidentiality of Alcohol and Drug Abuse Patient Records regulations: The Federal rules restrict any use of the information to criminally investigate or prosecute any alcohol or drug abuse patient.[facility] the event this information is protected by the Federal Confidentiality of Alcohol and Drug Abuse Patient Records regulations: The Federal rules restrict any use of the information to criminally investigate or prosecute any alcohol or drug abuse patient.[facility] INFORMATION SOURCE (unrecogn ized section and content) DATE CREATED AUTHOR 05/26/2021 [facility] [place] DATE CREATED AUTHOR AUTHOR'S ORGANIZ ATION 04/18/2022 [facility] DATE CREATED AUTHOR AUTHOR'S ORGANIZ ATION 09/15/2023 [facility] ([place]) DATE CREATED AUTHOR AUTHOR'S ORGANIZ ATION 03/18/2024 [facility] DATE CREATED AUTHOR AUTHOR'S ORGANPHILIPPE ATION 07/31/[address] [facility] Reason for Visit (unrecogniz ed section and content) Reason Onset Date Comments Psychiatric Problem 08/18/2021 Reason Comments Sinusitis Left side tooth pain head aches--1 week Reason Comments Ear Infection RIGHT ear x 3 weeks Reason Comments Sore Throat bodyaches and headac he x 2 days Reason Comments Results Care Team (unrecognized sect ion and content) Care Team Personnel Name: PHYSICIAN, NONE Position: Physician Member Role: Primary Care Physician Care Team Related Persons Name: DECLINED, Name: IRON AGUAYO Address: Home [address] [place] [address] Care Team Personnel Name: PHYSICIAN, NONE Position: Physician Member Role: Primary Care Physician Care Team Related Persons Name: DECLINED, Name: IRON AGUAYO Address: Home [address] [place] [address] Care Team Personnel Name: PHYSICIAN, NONE Position: Physician Member Role: Primary Care Physician Care Team Related Persons Name: DECLINED, Name: IRON AGUAYO Address: Home [address] Care Team Personnel Name: PHYSICIAN, NONE Position: Physician Member Role: Primary Care Physician Care Team Related Persons Name: DECLINED, Name: IRON AGUAYO Address: Home [address] Care Team Personnel Name: [facility] Member Role: Primary Care Physician Address: Address: [address] [place] [address] Name: Jackelyn Kaur CUSHION COVER INSPECTOR Position: ED CUSHION COVER INSPECTOR/CLS/MEDIC Member Role: ED CUSHION COVER INSPECTOR Name: MD ARAMIS GEORGE MD Position: ED Physician Member Role: Attending Physician Address: Address: [facility] [address] [place] [address]- Name: JAYJAY LAINEZ PA-C Position: ED Physician Earth Science Technical Officer Member Role: ED PA Address: Address: [address] [facility] [address] Care Team Related Persons Name: DECLINED, Name: IRON AGUAYO Address: Home [address] Care Team Personnel Name: [facility] Member Role: Primary Care Physician Address: Address: [address] [place], [place] [address] [[email or web address]] Name: BAN ALVES MD Position: ED Physician Member Role: Attending Physician Address: Address: [address] [place] [address] [[email or web address]] Name: ARELIS LEONG Position: ED Physician Earth Science Technical Officer Member Role: ED PA Address: Address: [address] [facility] [place], [place] [address] [[email or web address]] Name: ANDREA FLYNN DO Position: Resident Member Role: Resident Address: Address: [address] [facility] ED Resident [place], [place] [address] [[email or web address]] Name: KATHLEEN Marti Position: ED RN Member Role: ED RN Care Team Related Persons Name: RADHA, Name: IRON AGUAYO Address: Home [address] FOR RECORDS PERTAINING TO PATIENTS WHO ARE OR HAVE BEEN ENROLLED IN A CHEMICAL DEPENDENCY/SUBSTANCEABUSE PROGRAM, SOME INFORMATION MAY BE OMITTED. This clinical summary was aggregated from multiple sources. Caution should be exercised in using it in the provision of clinical care. This summary normalizes information from multiple sources, and as a consequence, information in this document may materially change the coding, format and clinical context of patient data. In addition, data may be omitted in some cases. CLINICAL DECISIONS SHOULD BE BASED ON THE PRIMARY CLINICAL RECORDS. [facility] [employer] [facility]. provides no warranty or guarantee of the accuracy or completeness of information in this document.
[2024-08-15 11:14] VITALS: BP 125/84; PULSE 87; RESP 16; TEMP 37.1; O2SAT 99
== END 2024-08-15 11:15 | disposition home or self-care (01) ==
LOC: ED 11:01
PROVIDERS: Emergency Provider Emergency Medicine; PCP Internal Medicine; Visit Provider Emergency Medicine
DX: L25.9 Unspecified contact dermatitis, unspecified cause (principal); Z87.891 Personal history of nicotine dependence; Z87.2 Personal history of diseases of the skin and subcutaneous tissue
CPT/HCPCS: 96372; 99282

== ENCOUNTER → 2024-09-10 | Outpatient (CLI) | payer MEDICARE, MEDICAID, SELFPAY ==
[2024-09-10 12:06] LABS: HIV Nonreactive (Nonreactive); Hepatitis B Surface Antigen Nonreactive (Nonreactive); Hepatitis C Antibody Nonreactive (Nonreactive); Syphilis Antibodies Nonreactive (Nonreactive)
[2024-09-12 06:07] LABS: Chlamydia By Nucleic Acid AMP Negative (Negative); Gonococcus By Nucleic Acid AMP Negative (Negative)
== END | disposition home or self-care (01) ==
LOC: BWCLAB 10:05
PROVIDERS: PCP Internal Medicine; Visit Provider Nurse Practitioner Family
DX: Z11.3 Encounter for screening for infections with a predominantly sexual mode of transmission (principal); R53.83 Other fatigue; Z12.4 Encounter for screening for malignant neoplasm of cervix; N89.8 Other specified noninflammatory disorders of vagina
CPT/HCPCS: 36415; 82627; 84403; 86695; 86696; 86703; 86706; 86780; 86803; 87070; 87077; 87186; 87205; 87340; 87491; 87591; 88175; 82626; G0145

== ENCOUNTER → 2024-09-12 | Outpatient (CLI) | payer MEDICARE, MEDICAID, SELFPAY | END | disposition home or self-care (01) | PROVIDERS: PCP Internal Medicine; Referring Provider Nurse Practitioner Family; Visit Provider Nurse Practitioner Family | DX: T83.32XA Displacement of intrauterine contraceptive device, initial encounter (principal) | CPT/HCPCS: 76830; 76856 ==

== ENCOUNTER 2024-10-17 14:42 | Emergency (ER) | payer MEDICARE, MEDICAID, SELFPAY ==
[2024-10-17 14:42] VITALS: BP 126/82; PULSE 75; RESP 15; TEMP 37.2; O2SAT 100; BMI 23.6
--- NOTE | 2024-10-17 15:05 | EX.ED.DYSGE1 ---
HPI History of Present Illness Chief Complaint: General Illness Narrative Narrative: 29-year-old female past medical history of epilepsy, not on medication presents with multiple somatic complaints. She states she has had a cough for a week and is bringing up phlegm. 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 She took Tylenol although she did not have a fever at that time. She is concerned because she has been coughing up phlegm for the last week. When she coughs, she states it makes her abdomen hurt. PFSH PFS Medical History Allergic dermatitis Seizures Migraines Home Medications ?Medication ?Instructions ?Recorded ?Last Taken ?Type mupirocin 2 % topical ointment 1 applic topical DAILY 7 days #15 07/02/24 Unknown Rx grams propranolol 10 mg tablet 10 mg PO DAILY 07/02/24 Unknown History fluoxetine 10 mg capsule 10 mg PO DAILY #90 caps 07/29/24 Unknown Rx sulfamethoxazole 800 1 tab PO BID #10 tabs 09/15/24 Unknown Rx mg-trimethoprim 160 mg tablet (Bactrim DS) aripiprazole 5 mg tablet 5 mg PO QDAY #14 tabs 10/10/24 Unknown Rx dupilumab 300 mg/2 mL subcutaneous mg subcut 10/10/24 Unknown History pen injector (Dupixent) risperidone 0.5 mg tablet 0.5 mg PO QHS #30 tabs 10/10/24 Unknown Rx Allergy/AdvReac Type Severity Reaction Status Date / Time peanut Allergy Anaphylaxis Verified 10/17/24 14:45 Family History Other Family history unknown Surgical History No pertinent past surgical history Social History adopted: Yes household members: none number of children: 1 current occupational status: 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 sexually active: Yes Smoking Status: Current some day smoker tobacco type: e-cigarettes Electronic Cigarette Use: with nicotine alcohol intake: current alcohol intake frequency: holidays/special occasions only details: holidays substance use type: former substance user Date of last use: 2019 caffeine: Yes Type: carbonated beverages eating out: 1-3 times/week during the past year weight has: increased > 10 lbs what type of physical activity do you participate in: walking frequency: 1-2 times per week duration: 30-45 minutes/day danish/mandaeism: None seatbelt use: always do you feel safe at home: Yes additional social history: Single ROS ROS ED ROS Narrative Review of systems positive for cough x 1 week, body aches, feeling flushed with subjective fever. Abdominal pain when coughing. No exacerbating or alleviating factors. EXAM Physical Exam Narrative Exam Narrative: Afebrile. Vital signs noted. Nontoxic-appearing. Cardiovascular examination feels regular rate and rhythm. Lungs are clear to auscultation bilaterally. No wheezing or stridor. Abdomen is soft and nontender without guarding or rebound. Positive bowel sounds. Neurological examination nonfocal, nonlateralizing. Const Vital Signs: 10/17/24 14:42 10/17/24 14:55 Temperature 98.9 F Temperature Source Oral Pulse Rate 75 Respiratory Rate 15 Respiratory Effort Normal Non-Labored Blood Pressure 126/82 H Blood Pressure Mean 96 Pulse Ox 100 Oxygen Delivery Method Room Air MDM MDM MDM Narrative Medical decision making narrative: The differential diagnosis includes but not limited to bronchitis versus pneumonia versus pneumothorax versus viral syndrome. She is afebrile here currently. Pulse ox 100% on room air without evidence of hypoxia. She was swabbed for COVID, influenza, and RSV. Additionally, chest x-ray 2 views was obtained and interpreted by myself to rule out pneumonia and the need for antibiotics as she has had a cough for a week. On my independent interpretation of her chest x-ray and 2 views, there is no evidence of pneumonia or pneumothorax. I reviewed the radiology report which confirms my independent interpretation. I reviewed her respiratory swab and she is negative for COVID, influenza, and RSV. Upon repeat examination, she is resting comfortably on the cot. I feel she probably has more of a viral syndrome and I do not feel antibiotics are indicated. She will take [id number] analgesics and follow-up with her primary care provider. Disposition is discharged home in stable condition. History & Record Review Discussion w/independent historian: Patient Radiography Diagnostic Testing: Clinical Impression(s) from Imaging Studies Chest X-Ray 10/17/24 15:25 IMPRESSION: Normal Reading Location: [facility] Discharge Plan Triage Chief Complaint: General Illness ED Provider: Delmer Amos Dx/Rx/DC Orders Clinical Impression: Body aches, Cough Instructions: ED Viral Syndrome (Adult), ED URI, Viral, No Abx (Adult) Prescriptions: No Action fluoxetine 10 mg capsule 10 mg PO DAILY Qty: 90 1RF Dupixent Pen 300 mg/2 mL pen injector subcut Patient Comments: [NO ORIGINAL SIG] aripiprazole 5 mg tablet 5 mg PO QDAY Qty: 14 0RF risperidone 0.5 mg tablet 0.5 mg PO QHS Qty: 30 1RF propranolol 10 mg tablet 10 mg PO DAILY mupirocin 2 % ointment 1 applic topical DAILY 7 Days Qty: 15 0RF sulfamethoxazole-trimethoprim [Bactrim DS] 800-160 mg tablet 1 tab PO BID Qty: 10 0RF Primary Care Provider: Melissa Jennings Referrals: Melissa Jennings MD [Primary Care Provider] - 1 Week if not improving Activity Restrictions/Additional Instructions: Continue Tylenol and/or ibuprofen as needed for pain. Drink plenty of oral fluids. Follow-up with your primary care provider. Print Language: Gabonese Disposition Disposition: Home, Self Care
--- NOTE | 2024-10-17 15:25 | RAD_ITS ---
PROCEDURE: CHEST PA AND LATERAL 10/17/2024 REASON FOR EXAM: COUGH TECHNIQUE: Procedure Code: RADCXR Modality: DX Procedure: CHEST PA AND LATERAL COMPARISON: None FINDINGS: Hardware: None Heart: Normal Mediastinum: Normal Lungs: Clear Bones: The bones are unremarkable. RAD/Chest PA and Lateral IMPRESSION: Normal Reading Location: [id number]
[2024-10-17 16:28] VITALS: BP 114/78; PULSE 59; RESP 15; TEMP 37.2; O2SAT 100
== END 2024-10-17 16:30 | disposition home or self-care (01) ==
PROVIDERS: Emergency Provider Emergency Medicine; PCP Internal Medicine; Visit Provider Emergency Medicine
DX: R05.9 Cough, unspecified (principal); F17.290 Nicotine dependence, other tobacco product, uncomplicated; R52 Pain, unspecified
CPT/HCPCS: 71046; 87631; 99282

== ENCOUNTER 2024-10-25 20:59 | Emergency (ER) | payer MEDICARE, MEDICAID, SELFPAY ==
[2024-10-25 21:00] VITALS: BP 134/72; PULSE 90; RESP 14; TEMP 36.9; O2SAT 98; BMI 23.8
--- NOTE | 2024-10-25 21:06 | EKG12_ITS ---
Test Reason : DYSRHYTHMIA Blood Pressure : */* mmHG Vent. Rate : 72 BPM Atrial Rate : 72 BPM P-R Int : 194 ms QRS Dur : 76 ms QT Int : 346 ms P-R-T Axes : 53 48 44 degrees QTcB Int : 378 ms Normal sinus rhythm Normal ECG Confirmed by Fredy Rowe ([id number]), editorial director ANGELITO MCGHEE ([id number]) on 10/27/2024 1:20:31 PM Referred By: Confirmed By: Fredy Rowe
--- NOTE | 2024-10-25 21:08 | EDS_ITS ---
HPI History of Present Illness Chief Complaint: Seizure Detail of Chief Complaint: Syncope and collapse followed by seizure Informant: patient, friend and EMS Onset/Context/Timing Onset: Today and Hours Context: Sudden Onset Timing: Intermittent Quality: Patient passed out while having a tattoo Location: Type II power Current Severity: Gone Maximum Severity: Severe Worsened by: History is consistent with vasovagal syncopal episode Relieved by: Time Associated Symptoms Associated Symptoms: Pallor, diaphoresis, Narrative Narrative: Patient is 29-year-old female. She had history of epilepsy as a child. She has no epilepsy as an adult. She states partially 5 months ago when IV was placed she became unresponsive and may have had seizure activity. Today she was having a test to placed on her anterior right thigh. There was some pain. She states she remembered feeling warm she was nauseous. The person who was doing a tattoo has arrived. She did become pale she was sweaty lips were blue. She fell backwards. She then had seizure activity. He was unresponsive approximately 3 minutes. There is no postictal state. There is no incontinence. Patient denies headache. Patient has double vision blurred vision loss of vision. She denies paresthesia or anesthesia upper or lower extremity. She denies problems with using her arms or legs. Presently she has no symptoms. Prior similar symptoms: Yes (5 months ago when she had an IV placed right upper extremity) Recent Illness/Hospitalization: No [facility] Medical History Allergic dermatitis Seizures Migraines Home Medications ?Medication ?Instructions ?Recorded ?Last Taken ?Type mupirocin 2 % topical ointment 1 applic topical DAILY 7 days #15 07/02/24 Unknown Rx grams propranolol 10 mg tablet 10 mg PO DAILY 07/02/24 Unkn own History fluoxetine 10 mg capsule 10 mg PO DAILY #90 caps 07/13 09/05 Unknown Rx sulfamethoxazole 800 1 tab PO BID #10 tabs Unknown Rx mg-trimethoprim 160 mg tablet (Bactrim DS) aripiprazole 5 mg tablet 5 mg PO QDAY #14 tabs Unknown Rx dupilumab 300 mg/2 mL subcutaneous mg subcut 10/10/24 Unknown History pen injector (Dupixent) risperidone 0.5 mg tablet 0.5 mg PO QHS #30 tabs 10/10 Unknown Rx Allergy/AdvReac Type Severity Reaction Status Date / Time peanut Allergy Anaphylaxis Verified 10/17/24 14:45 Family History Other Family history unknown Surgical History No pertinent past surgical history Social History adopted: Yes household members: none number of children: 1 current occupational status: 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 sexually active: Yes Smoking Status: Current some day smoker tobacco type: e-cigarettes Electronic Cigarette Use: with nicotine alcohol intake: current alcohol intake frequency: holidays/special occasions only details: holidays substance use type: former substance user Date of last use: 2019 caffeine: Yes Type: carbonated beverages eating out: 1-3 times/week during the past year weight has: increased > 10 lbs what type of physical activity do you participate in: walking frequency: 1-2 times per week duration: 30-45 minutes/day danish/roman catholic: None seatbelt use: always do you feel safe at home: Yes additional social history: Single ROS ROS ED Constitutional Constitutional ED: Denies chills, fever(s), subjective or sweats Eyes Eyes: Reports other Details: Patient became tunneled and black. ; Denies blurry vision, change in vision or diplopia ENT ENT ED: Reports other Details: Friend states her lips were blue. ; Denies ear pain, rhinorrhea or sore throat Cardiovascular Cardiovascular: Denies chest pain or palpitations Respiratory/Chest Respiratory/Chest: Denies cough, dyspnea or dyspnea on exertion Gastrointestinal Gastrointestinal: Reports nausea; Denies abdominal pain, diarrhea or vomiting Genitourinary Genitourinary ED: Denies dysuria, hematuria or urinary frequency Musculoskeletal Musculoskeletal: Denies arthralgias or myalgias Integumentary Denies rash Neurologic Neurologic: Denies headache(s), paresthesias or weakness Psychiatric Psychiatric: Denies anxiety or depression Endocrine Endocrinology: Denies cold intolerance or heat intolerance Hematologic/Lymphatic Hematologic/Lymphatic: Reports systems reviewed and no addt'l complaints, except as documented EXAM Physical Exam Const Vital Signs: 10/25/24 21:00 Temperature 98.5 F Temperature Source Oral Pulse Rate 90 Respiratory Rate 14 Blood Pressure 134/72 H Blood Pressure Mean 92 Pulse Ox 98 Oxygen Delivery Method Room Air Positive well nourished and well developed General Appearance ED: well developed and NAD; Negative for cyanotic, diaphoretic or pallor HEENT Reports moist mucous membranes HEENT Narrative: Head is atraumatic normocephalic. Ears normal. Nares patent. No hemotympanum. No clinic signs basilar skull fracture. Eyes PERRL and EOMs intact bilaterally General Eye ED: Negative for pale conjunctiva or scleral icterus Neck no lymphadenopathy, supple and no JVD Resp normal respiratory effort and clear to auscultation bilaterally Cardio regular rate, regular rhythm, S1 normal heart sound, S2 normal heart sound and no murmurs GI normal to inspection, nondistended, normoactive bowel sounds, non-tender and non-distended; Negative for hepatosplenomegaly or no masses Back/Spine no CVA tenderness Extremity normal to inspection General Extremety ED: Negative for edema or tenderness General Extremity: Negative for edema Neuro oriented x3, CN's II-XII intact bilaterally and no sensory deficits noted Neuro Narrative: There is no dysmetria. There is no clonus at the ankles. Negative Babinski sign bilaterally. Sensorium / Orientation: alert Motor Exam: strength 5/5 throughout Psych mental status grossly normal Skin no rashes or lesions noted, no wounds and skin turgor normal General Skin Exam: elasticity normal; Negative for jaundice or pallor MDM MDM MDM Narrative Medical decision making narrative: Were placed on the monitor to assess for any dysrhythmia. EKG was obtained to determine if there is any evidence to suggest preexcitation syndrome, but got to prolong QT etc. Patient and friend were told that she had a vasovagal episode in all likelihood. Will monitor to assure that nothing else may have caused this. EKG Initial EKG: Attestation: I personally reviewed and interpreted this EKG as follows: Interpretation: Sinus Rhythm (Normal sinus rhythm rate of 72. EKG is normal. MS interval is 194 ms. QRS duration is 76 ms. QT duration 246 ms. [place] is normal.) Treatment and Re-Evaluation :: Patient was observed until 2201. She has had no dysrhythmia on the monitor. Plan is to discharge to home. Discharge Plan Triage Chief Complaint: Seizure ED Provider: Rodriguez,Brandin Dx/Rx/DC Orders Clinical Impression: Vasovagal syncope, SAMI (generalized anxiety disorder), Seizure Instructions: ED Fainting, Vagal Reaction Prescriptions: No Action fluoxetine 10 mg capsule 10 mg PO DAILY Qty: 90 1RF Dupixent Pen 300 mg/2 mL pen injector subcut Patient Comments: [NO ORIGINAL SIG] aripiprazole 5 mg tablet 5 mg PO QDAY Qty: 14 0RF risperidone 0.5 mg tablet 0.5 mg PO QHS Qty: 30 1RF propranolol 10 mg tablet 10 mg PO DAILY mupirocin 2 % ointment 1 applic topical DAILY 7 Days Qty: 15 0RF sulfamethoxazole-trimethoprim [Bactrim DS] 800-160 mg tablet 1 tab PO BID Qty: 10 0RF Primary Care Provider: Melissa Jennings Referrals: Melissa Jennings MD [Primary Care Provider] - As Needed Print Language: Hungarian Disposition Disposition: Home, Self Care
--- OUTSIDE RECORDS SUMMARY | 2024-10-25 21:25 | XMS RPT_ITS | CCD ---
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 mL. TRANSABDOMINAL: Uterus: Normal size, myometrial echotexture, and contour. Endometrium: Unremarkable. Right ovary: Normal size and echotexture. Left ovary: There is a 4.8 cm 4.2 cm 3.9 cm simple cyst. Other: IUD is seen within the endometrium. Transvaginal sonography was performed to better visualize the endometrium. TRANSVAGINAL: Uterus: Anteverted. Normal contour and myometrial echotexture. Endometrium: Normal echotexture. Right ovary: Normal size and echotexture. Left ovary: 4.8 cm 4.2 cm 3.9 cm simple cyst. Other adnexal findings: None. Cul-de-sac: No free intraperitoneal fluid identified. Tenderness: US/Pelvic w/ Transvaginal IMPRESSION: IUD seen within the endometrium. 4.8 cm 4.2 cm 3.9 cm left simple ovarian cyst. Reading Location: [id number] CC: VIVI Killian; Dr. Melissa Jennings MD Didactic Instructor: Signed Normal [facility] DHEA Sulfateon 09-11-2024 DHEA SULFATE 228.0 ug/dL Normal 84.8-378.0 [facility] Comment on above: Order Comment: N Result Comment: Perf ormed at: CB [address] [id number] [place] Applier: Sachin Boudreaux PhD, Phone: [phone] Performed By: #### L 3890.6202, L3890.6006, L509.8002, L3400.1610, L3890.6102, L3890.6301, L3300.1500, L509.3001 #### [facility] [address] [facility] [place], [address] HSV 1 AND 2 IgGon 09-11-2024 HSV 1 IgG Reactive Abnormal Non Reactive [facility] Comment on above: Result Comment: Pl ease note reference interval change HSV-1 IgG testing performed using the Rachel Elecsys HSV-1 IgG assay. Performed By: #### L 3890.6202, L3890.6006, L509.8002, L3400.1610, L3890.6102, L3890.6301, L3300.1500, L509.3001 #### [facility] [address] [facility] [place], [address] HSV 2 IgG Non-Reactive Normal Non Reactive [facility] Comment on above: Result Comment: Pl ease note reference interval change Current guidelines and recommendations do not recommend routine screening for HSV-2 in asymptomatic individuals, including those that are . The detection of HSV-2 IgG antibodies in a single sample indicates previous exposure to HSV-2 but does not give information as to the site of HSV infection or the timing of exposure. The predictive value of positive and negative results depends on the population's prevalence and the pretest likelihood of HSV-2. HSV-2 IgG testing performed using the Rachel Elecsys HSV-2 IgG assay. Performed By: #### L 3890.6202, L3890.6006, L509.8002, L3400.1610, L3890.6102, L3890.6301, L3300.1500, L509.3001 #### [facility] [address] [facility] [place], [address] /on 09-11-2024 MR/BMS.BP [facility] [address] [facility], [address] [place] [address] OFFICE VISIT Date of Service: 09/11/24 MR#: [id number] Acct: [id number] Name: RONNA AGUAYO Rep #: [id number] : 1995 Provider: VIVI mae Age/Sex: 28/F Location: [facility].BP Status: Signed Intake Vital Signs 07/29/24 10:42 09/10/24 09:02 09/11/24 13:03 Height 5 ft 2 in 5 ft 2 in 5 ft 2 in Weight: 125 lb 126 lb BMI 22.8 23.0 BP 115/78 123/75 H Blood Pressure Location Lt brachial Position Sitting Respiration 16 Pulse 60 Pulse Source Monitor BP Intake Visit Reasons: 6 wk FU Accompanied by: Self Allergies peanut Allergy (Verified 09/11/24 13:13) Anaphylaxis Medications ???Medication ???Instructions ???Recorded ???Confirmed ???Type mupirocin 2 % topical ointment 1 applic topical DAILY 7 days #15 07/02/24 09/11/24 Rx grams propranolol 10 mg tablet 10 mg PO DAILY 07/02/24 09/11/24 H istory fluoxetine 10 mg capsule 10 mg PO DAILY #90 caps 07/29/24 0 09/11/24 Rx metronidazole 0.75 % (37.5 mg/5 1 appful vaginal QDAY 5 days #70 0 09/10/24 09/11/24 Rx gram) vaginal gel grams aripiprazole 10 mg tablet See Rx Instructions PO .COMPLEX 09/11/24 Rx #37 tabs PFSH Medical History Allergic dermatitis Seizures Migraines Surgical History No pertinent past surgical history Family History Other Family history unknown Social History adopted: Yes household members: none number of children: 1 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 occupational status: 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 sexually active: Yes Smoking Status: Current some day smoker tobacco type: e-cigarettes Electronic Cigarette Use: with nicotine alcohol intake: current alcohol intake frequency: holidays/special occasions only details: holidays substance use type: former substance user Date of last use: 2019 caffeine: Yes Type: carbonated beverages eating out: 1-3 times/week during the past year weight has: increased > 10 lbs what type of physical activity do you participate in: walking frequency: 1-2 times per week duration: 30-45 minutes/day danish/episcopal: None seatbelt use: always do you feel safe at home: Yes additional social history: Single HPI History of Present Illness History provided by: patient HPI: Ronna Aguayo is a 28 year old female patient presenting today for a follow up evaluation. Reports mood has been good overall. Is feeling more fatigued recently. Has stopped taking bupropion due to history of epilepsy. Admits to some occasional feelings of depression but has been infrequent. Depression occurs less than half the time. Reports she is going to get to see her daughter on 09/30. Admits to some recent feelings of anxiety but not often. Has had one panic attack since last appointment. Does not feel like she has been getting sound sleep and is not feeling well rested in the morning. Is getting 7-8 hours per night. Denies any issues falling asleep or staying asleep but does feel restless. Appetite has been increased. Admits to some occasional AH. Reports she feels it is distressing to her to have AH. Denies command AH. Denies VH. Reports she is irritable and has mood swings often. Does not feel that aripiprazole has been effective for her in reducing hallucinations. Previous similar episode: Yes Age of first onset of symptoms: 21-30 years Review of Systems Constitutional Reports: change in weight (gain 10 pound) and fatigue; Denies: fever(s) or chills Eyes Reports: blurry vision (morning mostly); Denies: change in vision Ears, Nose, Mouth, Throat Reports: throat pain and neck pain Cardiovascular Denies: chest pain, palpitations or dyspnea Respiratory Denies: dyspnea or wheezing Gastrointestinal Reports: abdominal pain, nausea, diarrhea and constipation; Denies: vomiting Genitourinary Denies: dysuria, urinary frequency or urinary urgency Musculoskeletal Reports: back pain, neck pain, joint pain and muscle cramps Integumentary/Breast Denies: rash, pruritus or erythema Neurological Reports: headache(s), numbness in extremities, weakness in extremities and seizure-like activity Psychiatric Reports: anxiety, mood swings, change in sleep pattern, hopelessness, loss of interest, irritability, paranoia, memory loss (short term), difficulty concentrating and auditory hallucinations (reduced); Denies: panic attacks, visual hallucinations, tactile hallucinations, suicidal ideation or homicidal ideation Endocrine Reports: fatigue Hematologic/Lymphatic Denies: easy bruising Allergic/Immunologic Denies: wheezing Exam Mental Status E (more content not included)... Normal [facility] Gram Stainon 09-10-2024 GS Reason for Exam: vag inal discharge Gram Stain 2+ Gram positive rods 2+ Gram variable woo No Gram negative diplococci No White Blood Cells Score = 4 Interpretation: 0-3 Normal, 4-6 Intermediate, 7-10 Positive BV Normal [facility] Comment on above: Performed By: #### L 3890.6202, L3890.6006, L509.8002, L3400.1610, L3890.6102, L3890.6301, L3300.1500, L509.3001 #### [facility] [address] [place], [address] HIVon 09-10-2024 HIV Non-Reactive Normal Nonreactive [facility] Comment on above: Result Comment: Non- Reactive Reactive Repeatedly reactive samples must be confirmed according to CDC recommended confirmatory algorithms. The subresults for either HIVAG or AHIV can be used as an aid in the selection of the confirmation algorithm for reactive samples. Send out specimens with Reactive results to [facility] for confirmation. Order the HIV antibody detection and differentiation: lc#[id number] Performed By: #### L 3890.6202, L3890.6006, L509.8002, L3400.1610, L3890.6102, L3890.6301, L3300.1500, L509.3001 #### [facility] [address] [place], [place], [id number] Hepatitis B Surface Antibody on 09-10-2024 HEP B Surf Ab Non-Reactive Normal [facility] Comment on above: Result Comment: <8.5 mIU/mL: Non-Reactive 8.5<= x <11.5 mIU/mL: Indeterminate >=11.5 mIU/mL: Reactive Non Reactive: Inconsistent with immunity less than <10 mIU/mL Reactive: Consistent with immunity greater than or equal to 10 mIU/mL Performed By: #### L 3890.6202, L3890.6006, L509.8002, L3400.1610, L3890.6102, L3890.6301, L3300.1500, L509.3001 #### [facility] [address] [facility]. [place], [place], [address] Hepatitis C Antibodyon 09-10 Hepatitis C Ab Non-Reactive Normal Nonreactive [facility] Comment on above: Result Comment: Reac tive: Presumptive evidence of antibodies to HCV. Follow CDC recommendations for supplemental testing. Non-Reactive: Antibodies to HCV were not detected; does not exclude the possibility of exposure to HCV Reactive Results are presumptive evidence of antibodies to HCV. Follow CDC recommendations for supplemental testing. Order confirmation testing: HCV Quant by PCR testing - HCVPCR #[id number] Non Reactive: < 0.8 Equivocal: >/= 0.8 to < 1.0 Reactive: >/= 1.0 The CDC requires that a reactive/equivocal HCV antibody result be sent out for confirmation. HCV Quant by PCR testing. Performed By: #### L 3890.6202, L3890.6006, L509.8002, L3400.1610, L3890.6102, L3890.6301, L3300.1500, L509.3001 #### [facility] [address] [facility] [place], [address] L3890.6102on 09-10-2024 HEP B Surf Ag Non-Reactive Normal Nonreactive [facility] Comment on above: Result Comment: Reac tive: Presumptive evidence of HBV. Repeatedly reactive samples must be confirmed using a neutralization test (Elecsys HBsAg Confirmatory Test) Non-Reactive: HBsAg not detected; does not exclude the possibility of exposure to HBV Performed By: #### L 3890.6202, L3890.6006, L509.8002, L3400.1610, L3890.6102, L3890.6301, L3300.1500, L509.3001 #### [facility] [address] [place], [address] L509.3001on 09-10-2024 Testosterone [Mass/Vol] 33.70 ng/dL Normal 9-58 [facility] Comment on above: Performed By: #### L 3890.6202, L3890.6006, L509.8002, L3400.1610, L3890.6102, L3890.6301, L3300.1500, L509.3001 #### [facility] [address] 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 Coil Winder Required: No Is patient in pain?: Yes (stomach) Pain scale (1-10): 6 Allergies peanut Allergy (Verified 09/10/24 09:05) Anaphylaxis Medications ???Medication ???Instructions ???Recorded ???Confirmed ???Type aripiprazole 20 mg tablet 20 mg PO QHS PRN PRN ASK PCP 07/0209/10/24 History mupirocin 2 % topical ointment 1 applic topical DAILY 7 days #15 07/02/24 09/10/24 Rx grams propranolol 10 mg tablet 10 mg PO DAILY 07/02/24 09/10/24 H istory bupropion HCl 150 mg 24 hr tablet, 150 mg PO QAM #30 tabs 07/29/24 09/10/24 Rx extended release fluoxetine 10 mg capsule 10 mg PO DAILY #90 caps 07/29/24 0 09/10/24 Rx metronidazole 0.75 % (37.5 mg/5 1 appful vaginal QDAY 5 days #70 0 09/10/24 09/10/24 Rx gram) vaginal gel grams Is last menstrual period known: No Post menopausal: No Patient : No : No Control Method: -[facility] Medical History Allergic dermatitis Seizures Migraines Surgical History No pertinent past surgical history Family History Other Family history unknown Social History adopted: Yes household members: none number of children: 1 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 occupational status: 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 sexually active: Yes Smoking Status: Current some day smoker tobacco type: e-cigarettes Electronic Cigarette Use: with nicotine alcohol intake: current alcohol intake frequency: holidays/special occasions only details: holidays substance use type: former substance user Date of last use: 2019 caffeine: Yes Type: carbonated beverages eating out: 1-3 times/week during the past year weight has: increased > 10 lbs what type of physical activity do you participate in: walking frequency: 1-2 times per week duration: 30-45 minutes/day danish/episcopal: None seatbelt use: always do you feel safe at home: Yes additional social history: Single History 3 Elective abortions Hx Para 1 Spontaneous abortions Hx # Term Pregnancies Ectopic pregnancies Hx # Pregnancies Multiple births # of living children 1 Past Pregnancies Del. Date Name GA/Weeks Outcome Route Bth Weight Gen Labor Lgth Anesthesia Del Locatn Provider FOB 07/19/22 Tanisha- adopted by sister HPI Encounter for routine gynecological examination Details: RONNA AGUAYO is a 28 year old who presents for annual exam and to establish care. She reports she has recently had unprotected sex; unsure if this man has be intercourse with others however would like to have STD testing. She states over the past week has noticed a vaginal odor-fishy. Denies vaginal discharge. She reports last night she had pelvic cramping and then today started with what she believes to be a menses. Reports she typically has spotting/bleeding at the beginning of the month. Denies fever, chills, or pelvic pain otherwise. Reports she Has mirena in place--completed in 2022--no records for review at this time. Last PAP: believes this was 2022-unsure results--believes negative. History of abnormal PAP: no Last mammogram: age 42 History of abnormal mammogram: n/a Colon cancer screening: age 47 Other preventative health care screenings: Dr. Jennings; PCP Female Reproductive History Last Menstrual Period: 08/06/24 Cycle Length: 21-35 Associated symptoms: mirena in place Questions: metrorrhagia: No, sexually active: Yes, dyspareunia: No and PCB: No ROS Const Constitutional: Denies chills, fatigue, fever(s) or weight loss Eyes Eyes: Denies change in vision ENT ENT: Denies dizziness Cardio Card: Denies chest pain at rest or palpitations Resp Resp: Denies cough or dyspnea GI GI: Denies abdominal pain, constipation or nausea : Reports as per HPI, vaginal discharge and vaginal odor; Denies difficulty voiding, dysuria, hematuria, pelvic pain (today), prolapse symptoms, urinary incontinence, vaginal dryness or vaginal pruritus Skin Skin/Breast: Denies alopecia or rash Neuro Neuro: Denies dizziness Psych Psych: Reports anxiety (controlled with meds) and depression (cont (more content not included)... Normal [facility] Syphilis Antibodieson 2024 Syphilis Abs Non-Reactive Normal Nonreactive [facility] Comment on above: Performed By: #### L 3890.6202, L3890.6006, L509.8002, L3400.1610, L3890.6102, L3890.6301, L3300.1500, L509.3001 #### [facility] [address] [place], [address] Emergency Department Summary on 08-15-2024 Emergency Department Summary [facility] Medical Records Department [address] [place] [address] Emergency Department Summary 08/15/24 MR#: [id number] Acct: [id number] Name: RONNA AGUAYO Rep #: [id number] : 1995 28 From: Koko Waters DO PCP: Dr. Melissa Jennings MD Status:PRE ER Location: ED HPI History of Present Illness Chief Complaint: Rash Narrative Narrative: Patient is a 28-year-old female with a past medical history of eczema, migraines, seizures, allergic dermatitis who presented to the emergency department with chief complaint of rash. States that she was here yesterday for the same thing however woke this morning it was painful therefore she came here for further evaluation management. Patient states that she was put on steroids and has been taking this as prescribed. States that she took 2 doses of ibuprofen did not help the pain therefore she came here for further evaluation management. Patient states that she used Fernández for hair removal recently and she states that she used this in the past and broke out in a very similar rash. Patient states that she is on her menstrual cycle currently and denies any possibility of retained foreign body denies any vaginal discharge denies any fevers [facility] Medical History Allergic dermatitis Seizures Migraines Home Medications ???Medication ???Instructions ???Recorded ???Last Taken ???Type aripiprazole 20 mg tablet 20 mg PO QHS PRN PRN ASK PCP 07/02 Unknown History mupirocin 2 % topical ointment 1 applic topical DAILY 7 days #15 07/02/24 Unknown Rx grams propranolol 10 mg tablet 10 mg PO DAILY 07/02/24 Unknown Hi story prednisone 10 mg tablet 10 mg PO DAILY #30 tabs 07/28/24 U nknown Rx bupropion HCl 150 mg 24 hr tablet, 150 mg PO QAM #30 tabs 07/29/24 Unknown Rx extended release fluoxetine 10 mg capsule 10 mg PO DAILY #90 caps 07/29/24 U nknown Rx prednisone 20 mg tablet 40 mg (2 x 20 mg) PO DAILY 7 days 08/14/24 Unknown Rx #14 tabs Allergy/AdvReac Type Severity Reaction Status Date / Time peanut Allergy Anaphylaxis Verified 08/15/24 09:54 Family History Other Family history unknown Surgical History No pertinent past surgical history Social History adopted: Yes household members: none current occupational [...] states she is in a [facility] [place] [facility] ) ROS ROS ED ROS Narrative Constitutional: Denies fevers, chills, headaches Cardiovascular: Denies chest pain Respiratory: Denies cough Abdomen: Denies nausea vomit diarrhea : Denies painful urination, increased frequency Neurological: Denies any numbness, wheeze, tingling Musculoskeletal: Denies back pain Skin: Complains of rash as noted above EXAM Physical Exam Narrative Exam Narrative: General: Patient lying in bed rest comfortably did not appear to be acute distress Head: Atraumatic, normocephalic Eyes, ears, nose and throat: PERRL bilaterally, EOMI by, no conjunctival injection noted, no intraoral lesions noted Neck: Soft, supple, trachea midline Cardiovascular: Regular in rhythm no murmurs Shows no Respiratory: Clear to auscultation bilaterally Abdomen: Soft, nondistended, no tense palpation Extremities: +5/5 strength noted in the bilateral upper and lower extremities Neurological: Patient follow commands knew that she was at [facility] years 2024 Skin: Warm, dry, patient has blanching/scabbing over rash on her inner thighs as well as her posterior right thigh. No petechia no purpura no sloughing of the skin noted, patient does also have in her antecubital fossa bilaterally eczematous rash noted. Const Vital Signs: 08/15/24 09:27 Temperature 98.5 F Temperature Source Oral Pulse Rate 76 Respiratory Rate 16 Blood Pressure 120/80 Blood Pressure Mean 93 Pulse Ox 100 Oxygen Delivery Method Room Air MDM MDM MDM Narrative Medical decision making narrative: Patient is a 28-year-old female who presented to the emergency department for acute complaint of rash. On the differential diagnose includes but not limited to, reaction to the nare, eczema flare, cellulitis a (more content not included)... Normal [facility] Emergency Department Summary on 08-14-2024 Emergency Department Summary [facility] Medical Records Department [address] [place] [address] Emergency Department Summary 08/14/24 MR#: [id number] Acct: [id number] Name: RONNA AGUAYO Rep #: [id number] : 1995 28 From: Alex Blood MD PCP: Dr. Melissa Jennings MD Status:REG ER Location: ED HPI History of Present Illness Chief Complaint: Rash Informant: patient Onset/Context/Timing Onset: Hours Context: Sudden Onset Timing: Continuous Current Severity: Moderate Maximum Severity: Moderate Narrative Narrative: 28-year-old female history of eczema and allergic dermatitis. Developed a rash 1 to 2 hours ago today. Has been on chronic antidepressant meds no recent med changes. No new foods. No new soaps or colognes. Says it does not itch. It is on her arms and legs primarily. She has had this before. Denies any recent illness. Prior similar symptoms: Yes Recent Illness/Hospitalization: No [facility] Medical History Allergic dermatitis Seizures Migraines Home Medications ???Medication ???Instructions ???Recorded ???Last Taken ???Type aripiprazole 20 mg tablet 20 mg PO QHS PRN PRN ASK PCP 07/02 Unknown History mupirocin 2 % topical ointment 1 applic topical DAILY 7 days #15 07/02/24 Unknown Rx grams propranolol 10 mg tablet 10 mg PO DAILY 07/02/24 Unknown Hi story prednisone 10 mg tablet 10 mg PO DAILY #30 tabs 07/28/24 U nknown Rx bupropion HCl 150 mg 24 hr tablet, 150 mg PO QAM #30 tabs 06/17/25 Unknown Rx extended release fluoxetine 10 mg capsule 10 mg PO DAILY #90 caps 07/29/24 U nknown Rx prednisone 20 mg tablet 40 mg (2 x 20 mg) PO DAILY 7 days 08/14/24 Unknown Rx #14 tabs Allergy/AdvReac Type Severity Reaction Status Date / Time peanut Allergy Anaphylaxis Verified 08/14/24 15:58 Family History Other Family history unknown Surgical History No pertinent past surgical history Social History adopted: Yes household members: none current occupational [...] states she is in [place] [facility] [place] [facility] ) ROS ROS ED ROS Narrative Rash today. No recent illness. Constitutional Constitutional ED: Denies chills or fever(s) Eyes Eyes: Denies blurry vision ENT ENT ED: Denies ear pain Cardiovascular Cardiovascular: Denies chest pain Respiratory/Chest Respiratory/Chest: Denies cough Gastrointestinal Gastrointestinal: Denies abdominal pain Genitourinary Genitourinary ED: Denies dysuria Musculoskeletal Musculoskeletal: Denies arthralgias Integumentary Reports rash; Denies abscess or Abrasions Neurologic Neurologic: Denies headache(s) Psychiatric Psychiatric: Denies anxiety Endocrine Endocrinology: Denies cold intolerance Hematologic/Lymphatic Hematologic/Lymphatic: Reports none Allergic/Immunologic Allergic/Immunologic ED: Denies mouth swelling, tongue swelling or urticaria EXAM Physical Exam Narrative Exam Narrative: Well-appearing 28-year-old female. Vital signs stable afebrile. No acute distress. EENT exam pupils round react light. Motions are intact. No swelling of her lips or tongue. No trouble breathing. No drooling. Neck nontender. Lungs clear to auscultation bilaterally. No wheezing. Heart regular rhythm no murmur rate about 70. Chest wall ribs nontender. Abdomen soft nontender. Back nontender. No rash on her chest back or abdomen. Extremities moving all 4. Nontender. No edema. She has a rash in both antecubital areas. In her medial proximal thighs. It does jarod. Is consistent with allergic reaction. No petechiae purpura. No sloughing of skin. No vesicles. No pustules. Neurologically she is awake alert. Answer questions follows commands. No focal motor deficits. Const Vital Signs: 08/14/24 15:59 Temperature 97.1 F L Temperature Source Temporal Pulse Rate 74 Respiratory Rate 18 Blood Pressure 127/92 H Blood Pressure Mean 103 Pulse Ox 100 Oxygen Delivery Method Room Air Positive well nourished and well developed; Negative for obese, cachectic, contractures or unkempt General Appearance ED: well developed and NAD; Negative for unkempt, cachectic, contracture (more content not included)... Normal [facility] MR/BMS.BPon 07-29-2024 MR/BMS.[address], [address] [place] [address] OFFICE VISIT Date of Service: 07/29/24 MR#: [id number] Acct: [id number] Name: RONNA AGUAYO Rep #: [id number] : 1995 Provider: VIVI mae Age/Sex: 28/F Location: [facility] Status: Signed Intake Vital Signs 06/03/24 14:03 [...] states she is in a [place] [facility] ) HPI History of Present Illness History [...] be poor. States memory fluctuates and sometimes mcc is good and sometimes it's not good. [...] 1 b (more content not included)... Normal [facility] Urgent Care Visit Reporton 0 07-28-2024 Urgent Care Visit Report [facility] [address], [address] [place] [address] OFFICE VISIT Date of Service: 07/28/24 MR#: [id number] Acct: [id number] Name: RONNA AGUAYO Rep #: [id number] : 1995 Provider: KVNG Oglesby Age/Sex: 28/F Location: [facility] Status: Signed Intake Vital Signs 07/02/24 11:28 [...] Intake Visit Reasons: Rash Chief Complaint: rash Multiple Coil Winder Required: No Is patient in pain?: No [...] 24 hours. denies additional areas of concern [facility] Medical History (Updated 07/28/24 @ 13:31 by KVNG Blas) Allergic dermatitis Seizures Migraines Surgical History No [...] states she is in a [place] [facility] ) HPI HPI Chief Complaint: rash Details: RONNA AGUAYO, is a 28 F who presents to the office today for bilateral forearm pruritic burning discomfort after applying Fernández product for hair removal from her forearms. No complaints of constricted/pruritic airway or shortness of breath/wheeze. No ttob-nqf-phqucwu topical products have been taken to assist [...] with D (more content not included)... Normal [facility] Emergency Department Summary on 07-02-2024 Emergency Department Summary [facility] Medical Records Department [address] [place] [address] Emergency Department Summary 07/02/24 MR#: [id number] Acct: [id number] Name: RONNA AGUAYO Rep #: [id number] : 1995 28 From: [place] Amos [...] states she is in a [place] [facility] ) ROS ROS ED ROS Narrative Review [...] oral antibiotics. She was instructed to use atai-ksl-sqfxnpn medications as needed but I did write [...] Instructions: Return (more content not included)... Normal [facility] MELA Comprehensive Panelon ANTI-CENT B AB <0.2 Normal 0.0-0.9 [facility] Comment on above: Performed By: #### L 500.4050, L501.3620, L100.0100, L501.9985, L501.5200, L500.4100, L3100.5440, L506.1001, L501.9520 ####[facility] [address] [place], [place], [phone] ANTI-DNA (DS)AB 4 IU/mL Normal 0-9 [facility] Comment on above: Result Comment: Nega tive <5 Equivocal 5 - 9 Positive >9 Performed By: #### L 500.4050, L501.3620, L100.0100, L501.9985, L501.5200, L500.4100, L3100.5440, L506.1001, L501.9520 ####[facility] [address] [place], [place], [phone] ANTI-JUDY-1 <0.2 Normal 0.0-0.9 [facility] Comment on above: Performed By: #### L 500.4050, L501.3620, L100.0100, L501.9985, L501.5200, L500.4100, L3100.5440, L506.1001, L501.9520 ####[facility] [address] [place], [place], [phone] ANTI-SS-A < 0.2 Normal 0.0-0.9 [facility] Comment on above: Performed By: #### L 500.4050, L501.3620, L100.0100, L501.9985, L501.5200, L500.4100, L3100.5440, L506.1001, L501.9520 ####[facility] [address] [place], [place], [phone] ANTI-SS-B < 0.2 Normal 0.0-0.9 [facility] Comment on above: Performed By: #### L 500.4050, L501.3620, L100.0100, L501.9985, L501.5200, L500.4100, L3100.5440, L506.1001, L501.9520 ####[facility] [address] [place], [address] ANTICHROMATIN <0.2 Normal 0.0-0.9 [facility] Comment on above: Performed By: #### L 500.4050, L501.3620, L100.0100, L501.9985, L501.5200, L500.4100, L3100.5440, L506.1001, L501.9520 ####[facility] [address] [place], [place], [phone] FINAL ASSEMBLER Ab <0.2 Normal 0.0-0.9 [facility] Comment on above: Performed By: #### L 500.4050, L501.3620, L100.0100, L501.9985, L501.5200, L500.4100, L3100.5440, L506.1001, L501.9520 ####[facility] [address] [place], [place], [phone] MICHAEL Ab <0.2 Normal 0.0-0.9 [facility] Comment on above: Performed By: #### L 500.4050, L501.3620, L100.0100, L501.9985, L501.5200, L500.4100, L3100.5440, L506.1001, L501.9520 ####[facility] [address] [place], [address] CBC W/Diff, Automatedon 04-2 -2024 Absolute Lymph 1.92 X10 3/uL Normal 0.83-4.51 [facility] Comment on above: Performed By: #### L 500.4050, L501.3620, L100.0100, L501.9985, L501.5200, L500.4100, L3100.5440, L506.1001, L501.9520 ####[facility] [address] [place], [address] Absolute Neut 7.2 X10 3/uL Normal 2.0-7.7 [facility] Comment on above: Performed By: #### L 500.4050, L501.3620, L100.0100, L501.9985, L501.5200, L500.4100, L3100.5440, L506.1001, L501.9520 ####[facility] [address] [place], [address] Basophils/100 WBC (Bld) 0.5 % Normal 0-1 [facility] Comment on above: Performed By: #### L 500.4050, L501.3620, L100.0100, L501.9985, L501.5200, L500.4100, L3100.5440, L506.1001, L501.9520 ####[facility] [address] [place], [address] Eosinophils/100 WBC (Bld) 2.2 % Normal 0-5 [facility] Comment on above: Performed By: #### L 500.4050, L501.3620, L100.0100, L501.9985, L501.5200, L500.4100, L3100.5440, L506.1001, L501.9520 ####[facility] [address] [place], [address] Erythrocyte distribution width (RBC) [Ratio] 12.0 % Normal 11.6-14.6 [facility] Comment on above: Performed By: #### L 500.4050, L501.3620, L100.0100, L501.9985, L501.5200, L500.4100, L3100.5440, L506.1001, L501.9520 ####[facility] [address] [place], [address] Hematocrit (Bld) [Volume fraction] 39.5 % Normal 37-47 [facility] Comment on above: Performed By: #### L 500.4050, L501.3620, L100.0100, L501.9985, L501.5200, L500.4100, L3100.5440, L506.1001, L501.9520 ####[facility] [address] [place], [address](892) Hemoglobin (Bld) [Mass/Vol] 13.3 g/dL Normal 12.0-15.0 [facility] Comment on above: Performed By: #### L 500.4050, L501.3620, L100.0100, L501.9985, L501.5200, L500.4100, L3100.5440, L506.1001, L501.9520 ####[facility] [address] [place], [place], [phone]) IG% 0.400 Normal 0.0-0.9 [facility] Comment on above: Result Comment: IG% - Immature Granulocytes (promyelocytes, myelocytes and metamyelocytes) > 1% indicates that a LEFT SHIFT is Present. Performed By: #### L 500.4050, L501.3620, L100.0100, L501.9985, L501.5200, L500.4100, L3100.5440, L506.1001, L501.9520 ####[facility] [address] [place], [place], [phone] Lymphocytes/100 WBC (Bld) 19.4 % Normal 19-41 [facility] Comment on above: Performed By: #### L 500.4050, L501.3620, L100.0100, L501.9985, L501.5200, L500.4100, L3100.5440, L506.1001, L501.9520 ####[facility] [address] [place], [address] MCH (RBC) [Entitic mass] 31.4 pg Normal 27.0-32.0 [facility] Comment on above: Performed By: #### L 500.4050, L501.3620, L100.0100, L501.9985, L501.5200, L500.4100, L3100.5440, L506.1001, L501.9520 ####[facility] [address] [place], [address] MCHC (RBC) [Mass/Vol] 33.7 g/dL Normal 32-36 [facility] Comment on above: Performed By: #### L 500.4050, L501.3620, L100.0100, L501.9985, L501.5200, L500.4100, L3100.5440, L506.1001, L501.9520 ####[facility] [address] [place], [address] MCV (RBC) [Entitic vol] 93.2 fL Normal 81-99 [facility] Comment on above: Performed By: #### L 500.4050, L501.3620, L100.0100, L501.9985, L501.5200, L500.4100, L3100.5440, L506.1001, L501.9520 ####[facility] [address] [place], [address] Monocytes/100 WBC (Bld) 5.0 % Normal 0-10 [facility] Comment on above: Performed By: #### L 500.4050, L501.3620, L100.0100, L501.9985, L501.5200, L500.4100, L3100.5440, L506.1001, L501.9520 ####[facility] [address] [place], [address] Neutrophils/100 WBC (Bld) 72.5 % High 47-70 [facility] Comment on above: Performed By: #### L 500.4050, L501.3620, L100.0100, L501.9985, L501.5200, L500.4100, L3100.5440, L506.1001, L501.9520 ####[facility] [address] [place], [address] Nucleated RBC (Bld) [#/Vol] 0 10*3/uL Normal 0-5 [facility] Comment on above: Performed By: #### L 500.4050, L501.3620, L100.0100, L501.9985, L501.5200, L500.4100, L3100.5440, L506.1001, L501.9520 ####[facility] [address] [place], [address] Platelet mean volume (Bld) [Entitic vol] 11.9 fL Normal 6.2-12.0 [facility] Comment on above: Performed By: #### L 500.4050, L501.3620, L100.0100, L501.9985, L501.5200, L500.4100, L3100.5440, L506.1001, L501.9520 ####[facility] [address] [place], [address] Platelets (Bld) [#/Vol] 220 10*3/uL Normal 150-450 [facility] Comment on above: Performed By: #### L 500.4050, L501.3620, L100.0100, L501.9985, L501.5200, L500.4100, L3100.5440, L506.1001, L501.9520 ####[facility] [address] [place], [address] RBC (Bld) [#/Vol] 4.24 10*6/uL Normal 4.2-5.4 [facility] Comment on above: Performed By: #### L 500.4050, L501.3620, L100.0100, L501.9985, L501.5200, L500.4100, L3100.5440, L506.1001, L501.9520 ####[facility] [address] [place], [address] RDW SD 41.1 fl Normal 35.1-43.9 [facility] Comment on above: Performed By: #### L 500.4050, L501.3620, L100.0100, L501.9985, L501.5200, L500.4100, L3100.5440, L506.1001, L501.9520 ####[facility] [address] [place], [address] WBC (Bld) [#/Vol] 9.9 10*3/uL Normal 4.4-11.0 [facility] Comment on above: Performed By: #### L 500.4050, L501.3620, L100.0100, L501.9985, L501.5200, L500.4100, L3100.5440, L506.1001, L501.9520 ####[facility] [address] [place], [address] CPK Total, Creatine Kinaseon 06-03-2024 CPK TOTAL 66 U/L Normal 24-195 [facility] Comment on above: Performed By: #### L 500.4050, L501.3620, L100.0100, L501.9985, L501.5200, L500.4100, L3100.5440, L506.1001, L501.9520 ####[facility] [address] [place], [place], [phone] Comprehensive Metabolic Prof ilon 06-03-2024 Albumin [Mass/Vol] 4.5 g/dL Normal 3.5-5.0 [facility] Comment on above: Performed By: #### L 500.4050, L501.3620, L100.0100, L501.9985, L501.5200, L500.4100, L3100.5440, L506.1001, L501.9520 ####[facility] [address] [place], [place], [phone] Albumin/Globulin [Mass ratio] 2.0 {ratio} Normal 0.9-2.4 [facility] Comment on above: Performed By: #### L 500.4050, L501.3620, L100.0100, L501.9985, L501.5200, L500.4100, L3100.5440, L506.1001, L501.9520 ####[facility] [address] [place], [place], [phone] ALK PHOS 64 U/L Normal 35-104 [facility] Comment on above: Performed By: #### L 500.4050, L501.3620, L100.0100, L501.9985, L501.5200, L500.4100, L3100.5440, L506.1001, L501.9520 ####[facility] [address] [place], [place], [phone] ALT [Catalytic activity/Vol] 20 U/L Normal <=34 [facility] Comment on above: Performed By: #### L 500.4050, L501.3620, L100.0100, L501.9985, L501.5200, L500.4100, L3100.5440, L506.1001, L501.9520 ####[facility] [address] [place], [address] AST [Catalytic activity/Vol] 17 U/L Normal <=31 [facility] Comment on above: Performed By: #### L 500.4050, L501.3620, L100.0100, L501.9985, L501.5200, L500.4100, L3100.5440, L506.1001, L501.9520 ####[facility] [address] [place], [address] Bilirubin [Mass/Vol] 0.24 mg/dL Normal 0.00-1.30 [facility] Comment on above: Performed By: #### L 500.4050, L501.3620, L100.0100, L501.9985, L501.5200, L500.4100, L3100.5440, L506.1001, L501.9520 ####[facility] [address] [place], [address] BUN/CRE 13.8 RATIO Normal 10-20 [facility] Comment on above: Performed By: #### L 500.4050, L501.3620, L100.0100, L501.9985, L501.5200, L500.4100, L3100.5440, L506.1001, L501.9520 ####[facility] [address] [place], [address] Calcium [Mass/Vol] 9.2 mg/dL Normal 7.6-11.0 [facility] Comment on above: Performed By: #### L 500.4050, L501.3620, L100.0100, L501.9985, L501.5200, L500.4100, L3100.5440, L506.1001, L501.9520 ####[facility] [address] [place], [address] Chloride [Moles/Vol] 106 mmol/L Normal 98-108 [facility] Comment on above: Performed By: #### L 500.4050, L501.3620, L100.0100, L501.9985, L501.5200, L500.4100, L3100.5440, L506.1001, L501.9520 ####[facility] [address] [place], [place], [phone](396) CO2 [Moles/Vol] 24.4 mmol/L Normal 21.0-32.0 [facility] Comment on above: Performed By: #### L 500.4050, L501.3620, L100.0100, L501.9985, L501.5200, L500.4100, L3100.5440, L506.1001, L501.9520 ####[facility] [address] [place], [place], [phone] Creatinine [Mass/Vol] 0.77 mg/dL Normal 0.70-1.20 [facility] Comment on above: Performed By: #### L 500.4050, L501.3620, L100.0100, L501.9985, L501.5200, L500.4100, L3100.5440, L506.1001, L501.9520 ####[facility] [address] [place], [place], [phone] GAP 10 Normal 5-15 [facility] Comment on above: Performed By: #### L 500.4050, L501.3620, L100.0100, L501.9985, L501.5200, L500.4100, L3100.5440, L506.1001, L501.9520 ####[facility] [address] [place], [place], [phone](324) GFR/1.73 sq M.predicted among non-blacks MDRD (S/P/Bld) [Vol rate/Area] 109 mL/min/{1.73_m2} Normal >60 [facility] Comment on above: Result Comment: mL/m in/1.73m2 CKD-EPI Creatinine Equation (2020) Performed By: #### L 500.4050, L501.3620, L100.0100, L501.9985, L501.5200, L500.4100, L3100.5440, L506.1001, L501.9520 ####[facility] [address] [place], [address] Globulin (S) [Mass/Vol] 2.3 g/dL Normal 2.2-4.2 [facility] Comment on above: Performed By: #### L 500.4050, L501.3620, L100.0100, L501.9985, L501.5200, L500.4100, L3100.5440, L506.1001, L501.9520 ####[facility] [address] [place], [address] Glucose [Mass/Vol] 79 mg/dL Normal 70-99 [facility] Comment on above: Performed By: #### L 500.4050, L501.3620, L100.0100, L501.9985, L501.5200, L500.4100, L3100.5440, L506.1001, L501.9520 ####[facility] [address] [place], [address] Potassium [Moles/Vol] 4.0 mmol/L Normal 3.3-5.1 [facility] Comment on above: Performed By: #### L 500.4050, L501.3620, L100.0100, L501.9985, L501.5200, L500.4100, L3100.5440, L506.1001, L501.9520 ####[facility] [address] [place], [address] Sodium [Moles/Vol] 140 mmol/L Normal 133-145 [facility] Comment on above: Performed By: #### L 500.4050, L501.3620, L100.0100, L501.9985, L501.5200, L500.4100, L3100.5440, L506.1001, L501.9520 ####[facility] [address] [place], [address] T PROT 6.8 g/dL Normal 5.9-8.4 [facility] Comment on above: Performed By: #### L 500.4050, L501.3620, L100.0100, L501.9985, L501.5200, L500.4100, L3100.5440, L506.1001, L501.9520 ####[facility] [address] [place], [address] Urea nitrogen [Mass/Vol] 11 mg/dL Normal 4-19 [facility] Comment on above: Performed By: #### L 500.4050, L501.3620, L100.0100, L501.9985, L501.5200, L500.4100, L3100.5440, L506.1001, L501.9520 ####[facility] [address] [place], [address] Hemoglobin A1con 06-03-2024 HbA1c (Bld) [Mass fraction] 4.6 % Normal <=5.6 [facility] Comment on above: Result Comment: Norm al < 5.7 % Prediabetic 5.7 - 6.4 % Diabetic >or= 6.5 % Please note range changes. Performed By: #### L 500.4050, L501.3620, L100.0100, L501.9985, L501.5200, L500.4100, L3100.5440, L506.1001, L501.9520 ####[facility] [address] [place], [address] Lipid Profileon 06-03-2024 CHOL:HDL 2.94 Normal [facility] Comment on above: Performed By: #### L 500.4050, L501.3620, L100.0100, L501.9985, L501.5200, L500.4100, L3100.5440, L506.1001, L501.9520 ####[facility] [address] [place], [place], [phone]) Cholesterol [Mass/Vol] 151 mg/dL Normal <=200 [facility] Comment on above: Result Comment: Chol esterol level, Desirable <200 mg/dL Borderline high cholesterol 200-239 mg/dL High cholesterol >=240 mg/dL Recommendations of the NCEP Adult Treatment Panel for the following risk-cutoff thresholds for the [place] population. Performed By: #### L 500.4050, L501.3620, L100.0100, L501.9985, L501.5200, L500.4100, L3100.5440, L506.1001, L501.9520 ####[facility] [address] [place], [place], [phone](220) Cholesterol in HDL [Mass/Vol] 51 mg/dL Normal [facility] Comment on above: Result Comment: Gemma onal Cholesterol Education Program (NCEP) guidelines: <40 mg/dL: Low HDL-cholesterol (major risk factor for CHD) >= 60 mg/dL: High HDL-cholesterol (negative risk factor for CHD) HDL-cholesterol is affected by a number of factors, e.g. smoking, exercise, hormones, sex and age. Performed By: #### L 500.4050, L501.3620, L100.0100, L501.9985, L501.5200, L500.4100, L3100.5440, L506.1001, L501.9520 ####[facility] [address] [place], [place], [phone]) Cholesterol in LDL [Mass/Vol] 82 mg/dL Normal [facility] Comment on above: Result Comment: Bord pwespk=845-251 mg/dL Higher Viyk=944 mg/dL or greater Performed By: #### L 500.4050, L501.3620, L100.0100, L501.9985, L501.5200, L500.4100, L3100.5440, L506.1001, L501.9520 ####[facility] [address] [place], [place], [phone] Cholesterol in VLDL [Mass/Vol] 18 mg/dL Normal 5-40 [facility] Comment on above: Performed By: #### L 500.4050, L501.3620, L100.0100, L501.9985, L501.5200, L500.4100, L3100.5440, L506.1001, L501.9520 ####[facility] [address] [place], [place], [phone] Triglyceride [Mass/Vol] 90 mg/dL Normal [facility] Comment on above: Result Comment: The drugs N-Acetylcysteine and Metamizole may falsely depress this assay. Normal range: <150 mg/dL Borderline High: 150-199 mg/dL High: 200-499 mg/dL Very High: >500 mg/dL Performed By: #### L 500.4050, L501.3620, L100.0100, L501.9985, L501.5200, L500.4100, L3100.5440, L506.1001, L501.9520 ####[facility] [address] [place], [place], [id number] Magnesiumon 06-03-2024 Magnesium [Mass/Vol] 1.9 mg/dL Normal 1.5-2.2 [facility] Comment on above: Performed By: #### L 500.4050, L501.3620, L100.0100, L501.9985, L501.5200, L500.4100, L3100.5440, L506.1001, L501.9520 ####[facility] [address] [place], [address] Thyroid Stim Hormone (TSH)on 06-03-2024 TSH 1.580 uIU/mL Normal 0.300-4.200 [facility] Comment on above: Performed By: #### L 500.4050, L501.3620, L100.0100, L501.9985, L501.5200, L500.4100, L3100.5440, L506.1001, L501.9520 ####[facility] [address] [place], [place], [address] Vitamin D,25 Hydroxyon 06-03 Vitamin D 25-OH 31.9 ng/mL Normal 30-100 [facility] Comment on above: Result Comment: Tegan min D Status Deficiency: <20 ng/mL (50nmol/L) Insufficiency: 20-30 ng/mL (50-75 nmol/L) Sufficiency: 30-100 ng/mL (75-250 nmol/L) Toxicity: >100 ng/mL (>250 nmol/L) Performed By: #### L 500.4050, L501.3620, L100.0100, L501.9985, L501.5200, L500.4100, L3100.5440, L506.1001, L501.9520 ####[facility] [address] [place], [place], [id number] Internal Medicine Office Vis belia 06-02-2024 Internal Medicine Office Visit [facility] [address] [place], [place] [address] OFFICE VISIT Date of Service: 06/03/24 MR#: [id number] Acct: [id number] Name: RONNA AGUAYO Rep #: [id number] : 1995 Provider: Dr. 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 [facility] Medical History (Updated 06/03/24 @ 16:39 by [...] states she is in a [place] ) Questionnaire PQH-9 BMS Over the last [...] and colleagues, with an educational jenelle from [employer]. SAMI-7 BMS SAMI-7 Feeling nervous, anxious, or [...] and colleagues, with an educational jenelle from [employer]. 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 Normal [facility] 03-18-2024 [facility] Telephone ([facility]) RONNA AGUAYO ([id number]) 1995 F Date Time Provider Department 03/18/24 KALEY HENRY [facility] During your visit today, we recorded the following information about you: Kaley Henry APRN.DENTAL OFFICE ASSISTANT 03/18/2024 7:40 AM Signed Please notify patient [...] Encounter Status:Closed by OFE FRYE on 03/18/24 [facility] CNOVon 03-17-2024 CN Office Visit ([facility] ) RONNA AGUAYO ([id number]) 1995 F Date Time Provider Department 03/17/24 10:00 AM RA CANTU [facility] During your visit today, we recorded the following information about you: Temperature Pulse Respiration Blood pressure 98.3 degrees 84/minute 16/minute 116/74 Weight 55.9 kg Ra Cantu APRN.[facility] 03/17/2024 10:24 AM Signed CC: Patient presents with: Sore Throat: bodyaches and headache x 2 days HPI: Ronnasandee Aguayo is a 28 year old female [...] Patient agreeable to treatment plan. Ra Cantu APRN.DENTAL OFFICE ASSISTANT Allergies As of Date: 03/17/2024 Noted Allergy Reaction PEANUTS 12/14/2016 7 - Swelling Date Reviewed: 03/17/2024 Reviewed by: Shanita Sexton MA - Fully Assessed Reason for Visit: Sore Throat [200] Cmt: bodyaches and headache x 2 days Primary Visit Diagnosis:Sore throat [J02.9] Other Visit Diagnosis:URI, acute [J06.9] Order(s):STREP A MOLECULAR (POC) [1982785] Order #: [id number]. #:[id number] oseltamivir (TAMIFLU) 75 mg capsuleTake 1 capsule by mouth two times a day for 5 days.Disp: 10 capsuleRfl: 0 COVID AND INFLUENZA A/B AND RSV PCR, ROUTINE [SQCVFLRS] Order #: [id number]. #:[id number] Prescriptions as of 03/17/2024 - oseltamivir (TAMIFLU) [...] XL (WELLBUTR (more content not included)... Normal [facility] COVID AND INFLUENZA A/B AND RSV PCR, ROUTINEon 03-17-2024 SARS-CoV-2 (COVID-19) RNA AMY+probe Ql (Unsp spec) SARS-COV-2 (AGENT OF COVID-19) RNA: Not detected INFLUENZA A RNA: Detected INFLUENZA B RNA: Not detected RESPIRATORY SYNCYTIAL VIRUS (RSV) RNA: Not detected Abnormal [facility] Comment on above: Performed By: #### C VFLRS #### [facility] CLIA [id number] [address] [place] [address] STATES OF [place] STREP A MOLECULAR (POC)on Procedural Control Valid [facility] Strep A (POCT) Negative Negative [facility] CNOVon 10-24-2023 CNOV Office Visit ([facility] ) RONNA AGUAYO ([id number]) 1995 F Date Time Provider Department 10/24/23 9:15 AM RODRIGUE PAUL [facility] During your visit today, we recorded the following information about you: Temperature Pulse Respiration Blood pressure 98.5 degrees 96/minute 16/minute 112/64 Weight Last Period 55.8 kg 10/17/23 Rodrigue Paul, HEALTH POLICY NURSE.DENTAL OFFICE ASSISTANT 10/24/2023 9:32 AM Signed Otitis media is [...] even if the symptoms go away. 2. Qzxi-[id number] pain medication may be taken or other [...] related to the medicine prescribed. Rodrigue Paul, HEALTH POLICY NURSE.DENTAL OFFICE ASSISTANT 10/24/2023 9:37 AM Signed Patient presents with: Ear Infection: RIGHT ear x 3 weeks SUBJECTIVE: Ronna Aguayo is a 28 year old year old female who presents for the past 3 weeks with symptoms that are:gradually worsening. Treated for AOM 10 days ago at in [place] - amoxicillin x 7d She reports her [...] Affect: Mood (more content not included)... Normal [facility] Campus Interviews Intern Cytology Reporton 2023 Campus Interviews Intern Cytology Report . Pathology Reports Accession: Collected Date/Time: Received Date/Time: Pathologist: [id number] 09/10/2023 13:20 EDT 09/10/2023 18:00 EDT Campus Interviews Intern Cytology Report SPECIMEN: Specimen Description: Liquid Prep Reflex ASCUS Specimen: Cervical/Endocervical Screening or Diagnostic: Screening RELEVANT HISTORY: LMP: na SPECIMEN ADEQUACY: SATISFACTORY FOR EVALUATION Endocervical/Transformational zone component present INTERPRETATION/RESULTS: NEGATIVE FOR INTRAEPITHELIAL LESION OR MALIGNANCY COMMENT: This Pap Test was successfully processed and evaluated with the assistance of the [employer] ThinPrep Test Imaging System. Electronically Signed by Pathology report verified by [facility] Screened by: [place] Electronically signed by Leyla FREEDMAN (ASCP) Sign-Out Date: 09/12/2023 11:40 Performing Lab: [facility], [address] [place] [address] Pathology Dept Disclaimer The Pap test is a screening test for cervical cancer. As evidenced by published data, it is subject to both inherent false negative and false positive results. Your patient's results should be interpreted in context with pertinent clinical history including gynecological examination. Normal [facility] ([place]) .Auto Diffon 03-16-2023 Basophil, Absolute 0.0 10 3/mcL Normal 0.0-0.3 [facility] ([place]) Comment on above: Performed By: #### T SH, A1C, CBC, ADIFF, ANEU, FE, CMP, FERR, GFR, FT4, VIDH ####[address] [address] Basophils/100 WBC (Bld) 0.5 % Normal 0.0-2.5 [facility] ([place]) Comment on above: Performed By: #### T SH, A1C, CBC, ADIFF, ANEU, FE, CMP, FERR, GFR, FT4, VIDH ####[address] [address] Eosinophil, Absolute 0.1 10 3/mcL Normal 0.0-0.7 [facility] ([place]) Comment on above: Performed By: #### T SH, A1C, CBC, ADIFF, ANEU, FE, CMP, FERR, GFR, FT4, VIDH ####[address] [address] Eosinophils/100 WBC (Bld) 1.1 % Normal 0.0-6.0 [facility] ([place] Comment on above: Performed By: #### T SH, A1C, CBC, ADIFF, ANEU, FE, CMP, FERR, GFR, FT4, VIDH ####[address] [address] Lymphocyte, Absolute 1.4 10 3/mcL Normal 0.9-4.3 [facility] ([place] Comment on above: Performed By: #### T SH, A1C, CBC, ADIFF, ANEU, FE, CMP, FERR, GFR, FT4, VIDH ####[address] [address] Lymphocytes/100 WBC (Bld) 18.6 % Low 20.0-40.0 [facility] ([place]) Comment on above: Performed By: #### T SH, A1C, CBC, ADIFF, ANEU, FE, CMP, FERR, GFR, FT4, VIDH ####[address] [address] Monocyte, Absolute 0.3 10 3/mcL Normal 0.1-1.4 [facility] ([place]) Comment on above: Performed By: #### T SH, A1C, CBC, ADIFF, ANEU, FE, CMP, FERR, GFR, FT4, VIDH ####[address] [address] Monocytes/100 WBC (Bld) 3.5 % Normal 2.0-13.0 [facility] ([place]) Comment on above: Performed By: #### T SH, A1C, CBC, ADIFF, ANEU, FE, CMP, FERR, GFR, FT4, VIDH ####[address] [address] Neutrophils/100 WBC (Bld) 76.3 % High 50.0-75.0 [facility] ([place] Comment on above: Performed By: #### T SH, A1C, CBC, ADIFF, ANEU, FE, CMP, FERR, GFR, FT4, VIDH ####[address] [address] .GFRon 03-16-2023 GFR >60 Normal [facility] ([place] Comment on above: Result Comment: GFR Population [...] ANEU, FE, CMP, FERR, GFR, FT4, VIDH ####[address] [address] GFR Non- >60 Normal [facility] ([place]) Comment on above: Result Comment: GFR Population [...] ANEU, FE, CMP, FERR, GFR, FT4, VIDH ####[address] [address] .NEUABSon 03-16-2023 Neutrophil, Absolute 5.9 10 3/mcL Normal 2.3-8.1 [facility] ([place]) Comment on above: Performed By: #### T SH, A1C, CBC, ADIFF, ANEU, FE, CMP, FERR, GFR, FT4, VIDH ####[place] [address] A1Con 03-16-2023 HbA1c (Bld) [Mass fraction] 4.5 % Normal 4.0-6.0 [facility] ([place]) Comment on above: Performed By: #### T SH, A1C, CBC, ADIFF, ANEU, FE, CMP, FERR, GFR, FT4, VIDH ####[place] [address] CBCon 03-16-2023 Erythrocyte distribution width (RBC) [Ratio] 12.7 % Normal 11.5-15.5 [facility] ([place]) Comment on above: Performed By: #### T SH, A1C, CBC, ADIFF, ANEU, FE, CMP, FERR, GFR, FT4, VIDH ####[place] [address] Hematocrit (Bld) [Volume fraction] 41.9 % Normal 34.0-46.0 [facility] ([place] Comment on above: Performed By: #### T SH, A1C, CBC, ADIFF, ANEU, FE, CMP, FERR, GFR, FT4, VIDH ####[place] [address] Hgb 14.0 G/dL Normal 12.0-16.0 [facility] ([place] Comment on above: Performed By: #### T SH, A1C, CBC, ADIFF, ANEU, FE, CMP, FERR, GFR, FT4, VIDH ####[place] [address] MCH (RBC) [Entitic mass] 30.8 pg Normal 27.0-33.0 [facility] ([place] Comment on above: Performed By: #### T SH, A1C, CBC, ADIFF, ANEU, FE, CMP, FERR, GFR, FT4, VIDH ####[place] [address] MCHC 33.4 G/dL Normal 32.0-36.0 [facility] ([place] Comment on above: Performed By: #### T SH, A1C, CBC, ADIFF, ANEU, FE, CMP, FERR, GFR, FT4, VIDH ####[place] [address] MCV (RBC) [Entitic vol] 92.0 fL Normal 80.0-99.0 [facility] ([place] Comment on above: Performed By: #### T SH, A1C, CBC, ADIFF, ANEU, FE, CMP, FERR, GFR, FT4, VIDH ####[place] [address] Platelet 159 10 3/mcL Normal 150-450 [facility] ([place]) Comment on above: Performed By: #### T SH, A1C, CBC, ADIFF, ANEU, FE, CMP, FERR, GFR, FT4, VIDH ####[place] [address] Platelet mean volume (Bld) [Entitic vol] 11.0 fL High 6.6-10.5 [facility] ([place] Comment on above: Performed By: #### T SH, A1C, CBC, ADIFF, ANEU, FE, CMP, FERR, GFR, FT4, VIDH ####[place] [address] RBC 4.55 10 6/mcL Normal 4.10-5.30 [facility] ([place] Comment on above: Performed By: #### T SH, A1C, CBC, ADIFF, ANEU, FE, CMP, FERR, GFR, FT4, VIDH ####[place] [address] WBC 7.7 10 3/mcL Normal 4.5-10.8 [facility] ([place] Comment on above: Performed By: #### T SH, A1C, CBC, ADIFF, ANEU, FE, CMP, FERR, GFR, FT4, VIDH ####[place] [address] CMPon 03-16-2023 Albumin Level 4.0 G/dL Normal 3.2-4.8 [facility] ([place] Comment on above: Performed By: #### T SH, A1C, CBC, ADIFF, ANEU, FE, CMP, FERR, GFR, FT4, VIDH ####[address] [address] Albumin/Globulin [Mass ratio] 1.4 {ratio} Normal 0.9-1.6 [facility] ([place] Comment on above: Performed By: #### T SH, A1C, CBC, ADIFF, ANEU, FE, CMP, FERR, GFR, FT4, VIDH ####[address] [address] ALP [Catalytic activity/Vol] 45 U/L Normal 38-126 [facility] ([place] Comment on above: Performed By: #### T SH, A1C, CBC, ADIFF, ANEU, FE, CMP, FERR, GFR, FT4, VIDH ####[place] [id number] ALT [Catalytic activity/Vol] 13 U/L Normal 10-49 [facility] ([place] Comment on above: Performed By: #### T SH, A1C, CBC, ADIFF, ANEU, FE, CMP, FERR, GFR, FT4, VIDH ####[place] [id number] AST [Catalytic activity/Vol] 12 U/L Normal 8-34 [facility] ([place] Comment on above: Performed By: #### T SH, A1C, CBC, ADIFF, ANEU, FE, CMP, FERR, GFR, FT4, VIDH ####[place] [id number] Bili Total 0.50 mg/dL Normal 0.20-1.20 [facility] ([place] Comment on above: Result Comment: Use of this assay is not recommended for patients undergoing treatment with eltrombopag due to the potential for falsely elevated results. Performed By: #### T SH, A1C, CBC, ADIFF, ANEU, FE, CMP, FERR, GFR, FT4, VIDH ####[place] [address] BUN/Creatinine Ratio 16.2 ratio Normal 10.0-22.0 [facility] ([place] Comment on above: Performed By: #### T SH, A1C, CBC, ADIFF, ANEU, FE, CMP, FERR, GFR, FT4, VIDH ####[address] [address] Calcium [Mass/Vol] 9.7 mg/dL Normal 8.7-10.4 [facility] ([place]) Comment on above: Performed By: #### T SH, A1C, CBC, ADIFF, ANEU, FE, CMP, FERR, GFR, FT4, VIDH ####[place] [id number] Chloride [Moles/Vol] 111 mmol/L High 98-110 [facility] ([place] Comment on above: Performed By: #### T SH, A1C, CBC, ADIFF, ANEU, FE, CMP, FERR, GFR, FT4, VIDH ####[place] [address] CO2 [Moles/Vol] 33 mmol/L High 22-32 [facility] ([place] Comment on above: Performed By: #### T SH, A1C, CBC, ADIFF, ANEU, FE, CMP, FERR, GFR, FT4, VIDH ####[place] [address] Creatinine [Mass/Vol] 1.05 mg/dL Normal 0.50-1.20 [facility] ([place]) Comment on above: Performed By: #### T SH, A1C, CBC, ADIFF, ANEU, FE, CMP, FERR, GFR, FT4, VIDH ####[place] [address] Electrolyte Balance 0.0 mEq/L Low 4.0-15.0 [facility] ([place] Comment on above: Performed By: #### T SH, A1C, CBC, ADIFF, ANEU, FE, CMP, FERR, GFR, FT4, VIDH ####[place] [address] Globulin 2.8 G/dL Normal 1.5-3.8 [facility] ([place] Comment on above: Performed By: #### T SH, A1C, CBC, ADIFF, ANEU, FE, CMP, FERR, GFR, FT4, VIDH ####[address] [address] Glucose [Mass/Vol] 80 mg/dL Normal 70-110 [facility] ([place]) Comment on above: Performed By: #### T SH, A1C, CBC, ADIFF, ANEU, FE, CMP, FERR, GFR, FT4, VIDH ####[place] [address] Potassium [Moles/Vol] 4.5 mmol/L Normal 3.5-5.0 [facility] ([place] Comment on above: Performed By: #### T SH, A1C, CBC, ADIFF, ANEU, FE, CMP, FERR, GFR, FT4, VIDH ####[place] [address] Sodium [Moles/Vol] 144 mmol/L Normal 136-145 [facility] ([place]) Comment on above: Performed By: #### T SH, A1C, CBC, ADIFF, ANEU, FE, CMP, FERR, GFR, FT4, VIDH ####[place] [address] Total Protein 6.8 G/dL Normal 5.7-8.2 [facility] ([place] Comment on above: Result Comment: No te - New Reference Range in effect 19 Performed By: #### T SH, A1C, CBC, ADIFF, ANEU, FE, CMP, FERR, GFR, FT4, VIDH ####[place] [address] Urea nitrogen [Mass/Vol] 17.0 mg/dL Normal 8.0-22.0 [facility] ([place] Comment on above: Performed By: #### T SH, A1C, CBC, ADIFF, ANEU, FE, CMP, FERR, GFR, FT4, VIDH ####[address] [address] FEon 03-16-2023 Iron [Mass/Vol] 117 ug/dL Normal 50-170 [facility] ([place] Comment on above: Performed By: #### T SH, A1C, CBC, ADIFF, ANEU, FE, CMP, FERR, GFR, FT4, VIDH ####[place] [id number] Iggy 03-16-2023 Ferritin [Mass/Vol] 14.3 ng/mL Normal 8.0-252.0 [facility] ([place] Comment on above: Performed By: #### T SH, A1C, CBC, ADIFF, ANEU, FE, CMP, FERR, GFR, FT4, VIDH ####[place] [address] [address] [place], [place] [id number] FT4on 03-16-2023 Free T4 [Mass/Vol] 1.12 ng/dL Normal 0.89-1.76 [facility] ([place]) Comment on above: Result Comment: No te - New Reference Range in effect 19 Performed By: #### T SH, A1C, CBC, ADIFF, ANEU, FE, CMP, FERR, GFR, FT4, VIDH ####[place] [address] LABORATORYOrdered By: SYSTEM SYSTEM on 03-16-2023 25-hydroxyvitamin [...] T4 [Mass/Vol] 1.12 ng/dL Normal 0.89 - 1. 76 ng/dL ADM SS Comment on above: Interpretive [...] (Bld) [#/Vol] 4.55 106/mcL Normal 4.10 - 5.3 0 10^6/mcL AH Workflow SS Sodium [Moles/Vol] 144 [...] SS TSHon 03-16-2023 TSH 0.703 mIU/mL Normal 0.550-4.780 [facility] ([place]) Comment on above: Result Comment: No te - New Reference Range in effect 19 Performed By: #### T SH, A1C, CBC, ADIFF, ANEU, FE, CMP, FERR, GFR, FT4, VIDH ####[place] [address] [address] [place] [address] VIDHon 03-16-2023 Vit. D 25-Hydroxy 38.4 ng/mL Normal [facility] ([place]) Comment on above: Result Comment: Inte rpretive Values Based on Total 25(OH)D: Severe Deficiency <20 ng/mL Mild to Moderate Deficiency 20-30 ng/mL Optimum Levels 30-100 ng/mL Toxicity Possible >100 ng/mL Performed By: #### T SH, A1C, CBC, ADIFF, ANEU, FE, CMP, FERR, GFR, FT4, VIDH ####[address] [address] CTPCRon 11-22-2022 C. trachomatis Interp Normal See CT Interp N [facility] ([place]) Comment on above: Result Comment: C. t rachomatis DNA not detected. Specimen is presumptive negative for C. trachomatis. A negative result does not preclude C. trachomatis infection because results depend on adequate specimen collection, absence of inhibitors, and sufficient DNA to be detected. See CT Interp N Performed By: #### C TPCR, NGPCR1 #### [address] [address] C.trachomatis PCR Negative Normal Negative [facility] ([place]) Comment on above: Result Comment: Mole cular (PCR) assay performed on the [employer] 4800 system. Performed By: #### C TPCR, NGPCR1 #### [address] [address] Chlam Source Cervix Normal [facility] ([place]) Comment on above: Performed By: #### C TPCR, NGPCR1 #### [address] [address] IJVOO5dy 11-22-2022 GC PCR Source Cervix Normal [facility] ([place]) Comment on above: Performed By: #### C TPCR, NGPCR1 #### [address] [address] N. gonorrhoeae (PCR) Negative Normal Negative [facility] ([place] Comment on above: Result Comment: Mole cular (PCR) assay performed on the [employer] 4800 System. Performed By: #### C TPCR, NGPCR1 #### [place] [address] N. gonorrhoeae Interp Normal See NG Interp N [facility] ([place]) Comment on above: Result Comment: N. g onorrhoeae DNA not detected. Specimen is presumptive negative for N. gonorrhoeae. A negative result does not preclude Neisseria gonorrhoeae infection because results depend on adequate specimen collection, absence of inhibitors, and sufficient DNA to be detected. See NG Interp N Performed By: #### C TPCR, NGPCR1 #### [place] [address] HBSAG 11-21-2022 Hep B Surf Ag Non-Reactive Normal Non-Reactive [facility] ([place]) Comment on above: Performed By: #### H BSAG, HCV1, HIV, RPR #### [place] [address] HCVon 11-21-2022 Hep C Ab Non-Reactive Normal Non-Reactive [facility] ([place]) Comment on above: Performed By: #### H BSAG, HCV1, HIV, RPR #### [place] [address] Hep C Ab Int Normal [facility] ([place] Comment on above: Result Comment: Nonr eactive: [...] #### H BSAG, HCV1, HIV, RPR #### [place] [address] HIV 11-21-2022 HIV 1/2 Ab Non-Reactive Normal Non-Reactive [facility] ([place] Comment on above: Result Comment: Spec imen is negative for anti-HIV-1 and anti-HIV-2. Performed By: #### H BSAG, HCV1, HIV, RPR #### [address] [address] RPRon 11-21-2022 Reagin Ab RPR Ql (S) Non-Reactive Normal Non-Reactive [facility] ([place] Comment on above: Result Comment: The RPR [...] By: #### H BSAG, HCV1, HIV, RPR ####[place] [address] .Auto Diffon 11-14-2022 Basophil, Absolute 0.1 10 3/mcL Normal 0.0-0.3 [facility] ([place]) Comment on above: Performed By: #### C MP, GFR, CBC, ADIFF, PAULO, MDW, LIP ####[place] [address] Basophils/100 WBC (Bld) 0.5 % Normal 0.0-2.5 [facility] ([place]) Comment on above: Performed By: #### C MP, GFR, CBC, ADIFF, MD PAULOW, LIP ####[address] [address] Eosinophil, Absolute 0.1 10 3/mcL Normal 0.0-0.7 [facility] ([place]) Comment on above: Performed By: #### C MP, GFR, CBC, ADIFF, PAULO, MDW, LIP ####[address] [address] Eosinophils/100 WBC (Bld) 0.6 % Normal 0.0-6.0 [facility] ([place] Comment on above: Performed By: #### C MP, GFR, CBC, ADIFF, PAULO, MDW, LIP ####[address] [address] Lymphocyte, Absolute 2.0 10 3/mcL Normal 0.9-4.3 [facility] ([place] Comment on above: Performed By: #### C MP, GFR, CBC, ADIFF, PAULO, W, LIP ####[address] [address] Lymphocytes/100 WBC (Bld) 14.6 % Low 20.0-40.0 [facility] ([place] Comment on above: Performed By: #### C MP, GFR, CBC, ADIFF, ANEU, MDW, LIP ####[address] [address] Monocyte, Absolute 0.7 10 3/mcL Normal 0.1-1.4 [facility] ([place]) Comment on above: Performed By: #### C MP, GFR, CBC, ADIFF, ANEU, MDW, LIP ####[address] [address] Monocytes/100 WBC (Bld) 5.1 % Normal 2.0-13.0 [facility] ([place] Comment on above: Performed By: #### C MP, GFR, CBC, ADIFF, ANEU, MDW, LIP ####[address] [address] Neutrophils/100 WBC (Bld) 79.2 % High 50.0-75.0 [facility] ([place] Comment on above: Performed By: #### C MP, GFR, CBC, ADIFF, ANEU, MDW, LIP ####[address] [address] .GFRon 11-14-2022 GFR >60 Normal [facility] ([place] Comment on above: Result Comment: GFR Population [...] Performed By: #### C MP, GFR, CBC, ADPAULO GASPAR MDW, LIP ####[address] [address] GFR Non- >60 Normal [facility] ([place] Comment on above: Result Comment: GFR Population [...] MP, GFR, CBC, ADIFF, LEON BATES, LIP ####[place] [address] .MDWon 11-14-2022 Monocyte Distribution Width 15.71 Normal 0.00-20.00 [facility] ([place] Comment on above: Result Comment: For ED adult patients suspected of sepsis, MDW<=20.0 does not rule out sepsis or risk of sepsis Performed By: #### C MP, GFR, CBC, ADIFF, LEON BATES, LIP ####[address] [address] .NEUABSon 11-14-2022 Neutrophil, Absolute 10.9 10 3/mcL High 2.3-8.1 [facility] ([place] Comment on above: Performed By: #### C MP, GFR, CBC, ADIFF, LEON BATES, LIP ####[address] [id number] CBCon 11-14-2022 Erythrocyte distribution width (RBC) [Ratio] 12.7 % Normal 11.5-15.5 [facility] ([place] Comment on above: Performed By: #### C MP, GFR, CBC, ADIFF, ANEU, MDW, LIP ####[place] [address] Hematocrit (Bld) [Volume fraction] 32.1 % Low 34.0-46.0 [facility] [place] Comment on above: Performed By: #### C MP, GFR, CBC, ADIFF, ANEU, MDW, LIP ####[place] [address] Hgb 10.9 G/dL Low 12.0-16.0 [facility] ([place] Comment on above: Performed By: #### C MP, GFR, CBC, ADIFF, ANEU, MDW, LIP ####[place] [address] MCH (RBC) [Entitic mass] 31.5 pg Normal 27.0-33.0 [facility] ([place] Comment on above: Performed By: #### C MP, GFR, CBC, ADIFF, ANEU, MDW, LIP ####[place] [address] MCHC 34.1 G/dL Normal 32.0-36.0 [facility] ([place] Comment on above: Performed By: #### C MP, GFR, CBC, ADIFF, ANEU, MDW, LIP ####[place] [address] MCV (RBC) [Entitic vol] 92.3 fL Normal 80.0-99.0 [facility] ([place] Comment on above: Performed By: #### C MP, GFR, CBC, ADIFF, ANEU, MDW, LIP ####[place] [id number] Platelet 180 10 3/mcL Normal 150-450 [facility] ([place] Comment on above: Performed By: #### C MP, GFR, CBC, ADIFF, ANEU, MDW, LIP ####[place] [address] Platelet mean volume (Bld) [Entitic vol] 9.7 fL Normal 6.6-10.5 [facility] ([place] Comment on above: Performed By: #### C MP, GFR, CBC, ADCHASITY, MD PAULOW, LIP ####[address] [address] RBC 3.47 10 6/mcL Low 4.10-5.30 [facility] ([place] Comment on above: Performed By: #### C MP, GFR, CBC, ADIFF, PAULO, W, LIP ####[address] [address] WBC 13.8 10 3/mcL High 4.5-10.8 [facility] ([place] Comment on above: Performed By: #### C MP, GFR, CBC, ADIFF, MD PAULOW, LIP ####[address] [address] CMPon 11-14-2022 Albumin Level 3.9 G/dL Normal 3.2-4.8 [facility] ([place] Comment on above: Performed By: #### C MP, GFR, CBC, ADIFF, PAULO, W, LIP ####[place] [address] Albumin/Globulin [Mass ratio] 1.7 {ratio} High 0.9-1.6 [facility] ([place] Comment on above: Performed By: #### C MP, GFR, CBC, ADIFF, PAULO, MDW, LIP ####[place] [address] ALP [Catalytic activity/Vol] 42 U/L Normal 38-126 [facility] ([place] Comment on above: Performed By: #### C MP, GFR, CBC, ADIFF, PAULO, W, LIP ####[place] [address] ALT [Catalytic activity/Vol] 13 U/L Normal 10-49 [facility] ([place] Comment on above: Performed By: #### C MP, GFR, CBC, ADIFF, ANEU, MDW, LIP ####[place] [id number] AST [Catalytic activity/Vol] 13 U/L Normal 8-34 [facility] ([place] Comment on above: Performed By: #### C MP, GFR, CBC, ADIFF, LEON BATES, LIP ####[address] [address] Bili Total 0.40 mg/dL Normal 0.20-1.20 [facility] ([place] Comment on above: Result Comment: Use of this assay is not recommended for patients undergoing treatment with eltrombopag due to the potential for falsely elevated results. Performed By: #### C MP, GFR, CBC, ADIFF, LEON BATES, LIP ####[address] [address] BUN/Creatinine Ratio 14.6 ratio Normal 10.0-22.0 [facility] ([place] Comment on above: Performed By: #### C MP, GFR, CBC, ADIFF, LEON BATES, LIP ####[address] [address] Calcium [Mass/Vol] 8.9 mg/dL Normal 8.7-10.4 [facility] ([place]) Comment on above: Performed By: #### C MP, GFR, CBC, ADIFF, LEON BATES, LIP ####[address] [address] Chloride [Moles/Vol] 108 mmol/L Normal 98-110 [facility] ([place] Comment on above: Performed By: #### C MP, GFR, CBC, ADIFF, LEON BATES, LIP ####[address] [address] CO2 [Moles/Vol] 27 mmol/L Normal 22-32 [facility] ([place] Comment on above: Performed By: #### C MP, GFR, CBC, ADIFF, LEON BATES, LIP ####[address] [address] Creatinine [Mass/Vol] 0.82 mg/dL Normal 0.50-1.20 [facility] ([place] Comment on above: Performed By: #### C MP, GFR, CBC, ADIFF, ANEU, MDW, LIP ####[address] [address] Electrolyte Balance 6.0 mEq/L Normal 4.0-15.0 [facility] ([place] Comment on above: Performed By: #### C MP, GFR, CBC, ADIFF, LEON BATES, LIP ####[address] [address] Globulin 2.3 G/dL Normal 1.5-3.8 [facility] ([place] Comment on above: Performed By: #### C MP, GFR, CBC, ADIFF, LEON BATES, LIP ####[address] [address] Glucose [Mass/Vol] 52 mg/dL Low 70-110 [facility] ([place] Comment on above: Performed By: #### C MP, GFR, CBC, ADIFF, MD PAULOW, LIP ####[address] [address] Potassium [Moles/Vol] 3.7 mmol/L Normal 3.5-5.0 [facility] ([place] Comment on above: Performed By: #### C MP, GFR, CBC, ADCHASITY, LEON BATES, LIP ####[place] [id number] Sodium [Moles/Vol] 141 mmol/L Normal 136-145 [facility] ([place] Comment on above: Performed By: #### C MP, GFR, CBC, ADCHASITY, LEON BATES, LIP ####[place] [id number] Total Protein 6.2 G/dL Normal 5.7-8.2 [facility] ([place] Comment on above: Result Comment: No te - New Reference Range in effect 19 Performed By: #### C MP, GFR, CBC, ADIFF, LEON BATES, LIP ####[address] [address] Urea nitrogen [Mass/Vol] 12.0 mg/dL Normal 8.0-22.0 [facility] ([place] Comment on above: Performed By: #### C MP, GFR, CBC, ADIFF, ANEU, MDW, LIP ####[place] [address] CT ABD/PELVIS W/ IV CONTRAST ONLYon 11-14-2022 [...] 11/14/2022 4:41:55 PM Ordering Provider: MARK Bartlett [facility] ([place] LABORATORYOrdered By: Juan Carlos mcguire on 11-14-2022 Beta HCG ( test) Ql (U) Negative (11/14/22 10:33 AM) [facility] Work Phone: LABORATORYOrdered By: SYSTEM SYSTEM on 11-14-2022 Albumin BCP dye [Mass/Vol] 3.9 G/dL Invalid Interpretation Code 3.2 - 4.8 G/dL ADM SS Albumin/Globulin [Mass ratio] 1.7 {ratio} Invalid Interpretation Code 0.9 - 1.6 ratio AH ADM SS ALP [Catalytic activity/Vol] 42 U/L Invalid Interpretation Code 38 - 126 U/L ADM SS ALT No additional P-5'-P [Catalytic activity/Vol] 13 U/L Invalid Interpretation Code 10 - 49 U/L ADM SS AST [Catalytic activity/Vol] 13 U/L Invalid Interpretation Code 8 - 34 U/L ADM SS Basophils (Bld) [#/Vol] 0.1 103/mcL [...] rate/Area] ml/min/1.73sqm Invalid Interpretation Code ADM SS Comment on [...] rate/Area] ml/min/1.73sqm Invalid Interpretation Code ADM SS Comment on [...] - 3.8 G/dL ADM SS Glucose [Mass/Vol] 52 mg/dL Invalid Interpretation Code 70 - 110 mg/dL ADM SS Hematocrit (Bld) [Volume fraction] 32.1 % Invalid Interpretation Code 34.0 - 46.0 % Workflow SS Hemoglobin (Bld) [Mass/Vol] 10.9 G/dL Invalid Interpretation Code 12.0 - 16.0 G/dL Workflow SS Lipase [Catalytic activity/Vol] 35 U/L Invalid Interpretation Code 12 - 53 U/L ADM SS Comment on above: Interpretive Data: [...] Invalid Interpretation Code 3.5 - 5.0 mEq/L ADM SS Protein [Mass/Vol] 6.2 G/dL Invalid Interpretation Code 5.7 - 8.2 G/dL ADM SS Comment on above: Interpretive Data: [...] Workflow SS LABORATORYOrdered By: Yael House on 11-14-2022 Appearance (U) Cloudy *ABN* (11/14/22 [...] 1.010 (11/14/22 10:20 AM) Invalid Interpretation Code 1.006-1.029 AH Auto Urine SS UA Specimen Type [...] 11-14-2022 Lipase Level 35 U/L Normal 12-53 [facility] ([place] Comment on above: Result Comment: No te - New Reference Range in effect 19 Performed By: #### C MP, GFR, CBC, ADIFF, ANEU, MDW, LIP ####[address] [address] UAon 11-14-2022 Color (U) Straw Normal [facility] ([place] Comment on above: Performed By: #### U A, UAMIC #### [place] [address] Glucose (U) [Mass/Vol] Negative Normal Negative [facility] ([place] Comment on above: Performed By: #### U A, UAMIC #### [place] [address] Ketones Ql (U) Negative Normal Neg-Trace [facility] ([place] Comment on above: Performed By: #### U A, UAMIC #### [place] [address] UA Appear Cloudy Abnormal Clear [facility] ([place] Comment on above: Performed By: #### U A, UAMIC #### [place] [address] UA Blood Small Abnormal Neg-Trace [facility] ([place] Comment on above: Performed By: #### U A, UAMIC #### [address] [address] UA Leuk Est Large Abnormal Negative [facility] ([place] Comment on above: Performed By: #### U A, UAMIC #### [place] [address] UA Nitrite Negative Normal Negative [facility] ([place] Comment on above: Performed By: #### U A, UAMIC #### [place] [address] UA pH 6.0 Normal 5.0 - 8.0 [facility] ([place] Comment on above: Performed By: #### U A, UAMIC #### [place] [address] UA Protein Negative Normal Negative [facility] ([place] Comment on above: Performed By: #### U A, UAMIC #### [place] [address] UA Spec Grav 1.010 Normal 1.006-1.029 [facility] ([place] Comment on above: Performed By: #### U A, UAMIC #### [place] [address] UA Specimen Type Not Given Normal [facility] ([place] Comment on above: Performed By: #### U A, UAMIC #### [place] [address] UA Urobilinogen 0.2 E.U./dL Normal 0.2-1.0 [facility] ([place] Comment on above: Performed By: #### U A, UAMIC #### [place] [address] Urobilinogen (U) [Mass/Vol] Negative Normal Neg-Trace [facility] ([place] Comment on above: Performed By: #### U A, UAMIC #### [place] [address] UAMICon 11-14-2022 UA Bacteria 2+ /hpf Abnormal Negative [facility] ([place] Comment on above: Performed By: #### U A, UAMIC #### [place] [address] UA Glitter cells 50-100 Abnormal [facility] ([place] Comment on above: Performed By: #### U A, UAMIC #### [place] [address] UA Mucous 2+ /hpf Normal [facility] ([place] Comment on above: Performed By: #### U A, UAMIC #### [facility] [address] [place] [address] UA RBC 0-2 Normal 0-2 [facility] ([place] Comment on above: Performed By: #### U A UAMIC #### [facility] [address] [place] [address] UA Squam Epithelial 3-5 Normal 0-20 [facility] ([place] Comment on above: Performed By: #### U A, UAMIC #### [address] [address] UA WBC 25-50 Abnormal 0-5 [facility] ([place] Comment on above: Performed By: #### U A, UAMIC #### [place] [address] CNOVon 04-16-2022 CNOV Office Visit (UCMMAS ) RONNA AGUAYO ([id number]) 1995 F Date Time Provider Department 04/16/22 11:10 AM [facility] MIRELES During your visit today, we recorded the [...] here. She also missed her shift at [employer] because the heat and [employer] was making her teeth hurt worse so she wants a slip to be off today and tomorrow from [employer]. And she was given that. Patient will [...] MG TABLET (more content not included)... Normal [facility] LABORATORYOrdered By: Mahsa Figueroa on 02-24-2022 Beta HCG ( test) Ql (U) Negative (02/24/22 12:24 PM) [facility] Work Phone: LABORATORYOrdered By: SYSTEM SYSTEM on 02-24-2022 Albumin BCP dye [Mass/Vol] 4.4 G/dL Invalid Interpretation Code 3.2 - 4.8 G/dL ADM SS Albumin/Globulin [Mass ratio] 1.9 {ratio} Invalid Interpretation Code 0.9 - 1.6 ratio AH ADM SS ALP [Catalytic activity/Vol] 58 U/L [...] 10^3/mcL AH Workflow SS Basophils/100 WBC (Bld) 0.1 % Invalid Interpretation Code 0.0 - 2.5 % AH Workflow SS Bilirubin [Mass/Vol] 1.00 mg/dL Invalid Interpretation Code 0.20 - 1.20 mg/dL ADM SS Calcium [Mass/Vol] 9.6 mg/dL Invalid Interpretation Code 8.7 - 10.4 mg/dL AH ADM SS Chloride [Moles/Vol] 107 mmol/L Invalid Interpretation Code 98 - 110 mEq/L AH ADM SS CO2 [Moles/Vol] 29 mmol/L Invalid Interpretation Code 22 - 32 mEq/L AH ADM SS Creatinine [Mass/Vol] 0.89 mg/dL Invalid Interpretation Code 0.50 - 1.20 mg/dL AH ADM SS Electrolyte Balance 4.0 mEq/L Invalid Interpretation Code 4.0 - 15.0 mEq/L AH ADM SS Eosinophils (Bld) [#/Vol] 0.0 103/mcL [...] 18.18 Invalid Interpretation Code 0.00 - 20.00 Workflow SS Comment on above: Result Comment: [...] sed) [#/Area] 1 /[HPF] Invalid Interpretation Code Negative/HPF AH Auto Urine SS Bilirubin Ql (U) Small *ABN* (02/24/22 11:53 AM) Invalid Interpretation Code Neg-Trace AH Auto Urine SS Color (U) Dark Yellow *NA* (02/24/22 11:53 AM) Invalid Interpretation Code AH Auto Urine SS Glucose Test strip (U) [Mass/Vol] Negative Invalid Interpretation Code Negativemg/d L AH Auto Urine SS Hemoglobin Auto test strip (U) [Mass/Vol] Negative (02/24/22 11:53 AM) Invalid Interpretation Code Neg-Trace Auto Urine SS Ketones Ql (U) Trace mg/dL Invalid Interpretation Code Neg-Tracemg/ dL Auto Urine SS UA Leuk Est Moderate *ABN* (02/24/22 11:53 AM) Invalid Interpretation Code Negative Auto Urine SS UA Mucous 2+ /HPF Invalid Interpretation Code Auto Urine SS UA Nitrite Negative (02/24/22 11:53 AM) Invalid Interpretation Code Negative Auto Urine SS UA pH 6.5 (02/24/22 11:53 AM) Invalid Interpretation Code 5.0 - 8.0 AH Auto Urine SS UA Protein 100 mg/dL Invalid Interpretation Code Negativemg/d L AH Auto Urine SS UA RBC 0-2 /HPF Invalid Interpretation Code 0-2/HPF Auto Urine SS UA Spec Grav >=1.030 *ABN* (02/24/22 11:53 AM) Invalid Interpretation Code 1.006-1.029 Auto Urine SS UA Specimen Type Clean Catch (02/24/22 11:53 AM) Invalid Interpretation Code Auto Urine SS UA Squam Epithelial 10-20 /HPF Invalid Interpretation Code 0-20/HPF Auto Urine SS UA Urobilinogen 1.0 E.U./dL Invalid Interpretation Code 0.2-1.0E.U./ dL Auto Urine SS WBC LM.HPF (Urine sed) [#/Area] 10-20 /HPF Invalid Interpretation Code 0-5/HPF Auto Urine SS LABORATORYOrdered By: Renato Bradshaw on 11-19-2021 Appearance (U) Clear (11/19/21 11:39 AM) [facility] Work Phone: Beta HCG ( test) Ql (U) Negative (11/19/21 11:39 AM) [facility] Work Phone: Bilirubin Urine Dipstick Negative (11/19/21 11:39 AM) [facility] Work Phone: Blood Urine Dipstick Negative (11/19/21 11:39 AM) [facility] Work Phone: Glucose Urine Dipstick Negative (11/19/21 11:39 AM) [facility] Work Phone: Ketones Urine Dipstick Negative (11/19/21 11:39 AM) [facility] Work Phone: Leukocytes Urine Dipstick Negative (11/19/21 11:39 AM) [facility] Work Phone: Nitrite Urine Dipstick Negative (11/19/21 11:39 AM) [facility] Work Phone: pH Urine Dipstick 6 (11/19/21 11:39 AM) [facility] Work Phone: Protein Urine Dipstick Negative (11/19/21 11:39 AM) [facility] Work Phone: Specific [place] Urine Dipstick 1.010 (11/19/21 11:39 AM) [facility] Work Phone: Urine Color Urine Dipstick Yellow (11/19/21 11:39 AM) [facility] Work Phone: Urobilinogen Urine Dipstick 0.2 mg/dl (11/19/21 11:39 AM) [facility] Work Phone: LABORATORYOrdered By: SYSTEM SYSTEM on [...] 0.7 10^3/mcL Workflow SS Eosinophils/100 WBC (Bld) 2.1 % [...] 4.3 10^3/mcL Workflow SS Lymphocytes/100 WBC (Bld) 25.8 % [...] mEq/L AH ADM SS Urea nitrogen [Mass/Vol] 14.0 mg/dL Invalid Interpretation Code 8.0 - 22.0 mg/dL AH ADM SS Urea nitrogen/Creatinin e [Mass ratio] 17.9 ratio Invalid Interpretation Code 10.0 - 22.0 ratio AH ADM SS WBC (Bld) [#/Vol] 6.9 103/mcL Invalid Interpretation Code 4.5 - 10.8 10^3/mcL AH Workflow SS ED NOTEon 2021 ED NOTE HNO ID: [id number] Author: Zainab Veloz, RN Service: ASSESSMENT Author Type: Registered Nurse Type: ED Notes Filed: 2021 12:20 AM Note Text: Pt presents to the ER for c/o rectal bleeding episode x1 today during BM with a hx of hemorrhoids during . Pt states pain in rectum as well. No other c/o no acute distress. [facility] ED PROV NOTEon 2021 ED PROV NOTE HNO ID: [id number] Author: Charbel Vazquez PA-C Service: Emergency Medicine Author Type: Physician [employer] Tester Type: ED Provider Notes Filed: 10/01/2021 11:54 [...] Clinical Impression Clinical Impressions as of 10/01/21 2357 Rectal fissure MDM / Disposition / Plan [...] FILIBERTO Mueller (more content not included)... Normal [facility] LABORATORYOrdered By: Yolanda Rich on 09-02-2021 Beta HCG ( test) Ql (U) Negative (09/02/21 11:49 AM) [facility] Work Phone: LABORATORYOrdered By: Yael House on 09-02-2021 Appearance (U) Clear (09/02/21 11:43 AM) Invalid Interpretation Code Clear AH Auto Urine SS Bilirubin Ql (U) Negative (09/02/21 11:43 AM) Invalid Interpretation Code Neg-Trace AH Auto Urine SS Color (U) Yellow (09/02/21 11:43 AM) Invalid Interpretation Code AH Auto Urine SS Glucose Test strip (U) [Mass/Vol] Negative Invalid Interpretation Code Negativemg/d L AH Auto Urine SS Hemoglobin Auto test strip (U) [Mass/Vol] Negative (09/02/21 11:43 AM) Invalid Interpretation Code Neg-Trace AH Auto Urine SS Ketones Ql (U) Negative Invalid Interpretation Code Neg-Tracemg/ dL AH Auto Urine SS UA Leuk Est Negative (09/02/21 11:43 AM) Invalid Interpretation Code Negative AH Auto Urine SS UA Nitrite Negative (09/02/21 11:43 AM) Invalid Interpretation Code Negative AH Auto Urine SS UA pH 6.5 (09/02/21 11:43 AM) Invalid Interpretation Code 5.0 - 8.0 AH Auto Urine SS UA Protein Negative Invalid Interpretation Code Negativemg/d L AH Auto Urine SS UA Spec Grav 1.015 (09/02/21 11:43 AM) Invalid Interpretation Code 1.006-1.029 AH Auto Urine SS UA Specimen Type Clean Catch (09/02/21 11:43 AM) Invalid Interpretation Code AH Auto Urine SS UA Urobilinogen 0.2 E.U./dL Invalid Interpretation Code 0.2-1.0E.U./ dL AH Auto Urine SS LABORATORYOrdered By: SYSTEM SYSTEM on 09-02-2021 Albumin BCP dye [Mass/Vol] 4.1 G/dL Invalid Interpretation Code 3.2 - 4.8 G/dL AH ADM SS Albumin/Globulin [Mass ratio] 1.6 {ratio} Invalid Interpretation Code 0.9 - 1.6 ratio AH ADM SS ALP [Catalytic activity/Vol] 71 U/L [...] Invalid Interpretation Code 27.0 - 33.0 pg Workflow SS MCHC 33.1 G/dL Invalid Interpretation Code 32.0 - 36.0 G/dL Workflow SS MCV (RBC) [Entitic vol] 92.3 fL Invalid Interpretation Code 80.0 - 99.0 fL Workflow SS Monocyte distribution width Auto (Bld) [Entitic vol] 17.97 Invalid Interpretation Code 0.00 - 20.00 Workflow SS Comment on above: Result Comment: For ED adult patients suspected of sepsis, MDW<=20.0 does not rule out sepsis or risk of sepsis Monocytes (Bld) [#/Vol] 0.2 103/mcL Invalid Interpretation Code 0.1 - 1.4 10^3/mcL Workflow SS Monocytes/100 WBC (Bld) 4.6 % Invalid Interpretation Code 2.0 - 13.0 % Workflow SS Neutrophils (Bld) [#/Vol] 3.9 103/mcL Invalid Interpretation Code 2.3 - 8.1 10^3/mcL Workflow SS Neutrophils/100 WBC (Bld) 77.3 % Invalid Interpretation Code 50.0 - 75.0 % Workflow SS Platelet mean volume (Bld) [Entitic vol] 9.2 fL Invalid Interpretation Code 6.6 - 10.5 fL Workflow SS Platelets (Bld) [#/Vol] 172 103/mcL Invalid Interpretation Code 150 - 450 10^3/mcL Workflow SS Potassium [Moles/Vol] 4.1 mmol/L Invalid Interpretation Code 3.5 - 5.0 mEq/L ADM SS Protein [Mass/Vol] 6.6 G/dL Invalid Interpretation Code 5.7 - 8.2 G/dL ADM SS RBC (Bld) [#/Vol] 4.20 106/mcL Invalid Interpretation Code 4.10 - 5.30 10^6/mcL Workflow SS Sodium [Moles/Vol] 145 mmol/L Invalid Interpretation Code 136 - 145 mEq/L ADM SS Urea nitrogen [Mass/Vol] 10.0 mg/dL Invalid Interpretation Code 8.0 - 22.0 mg/dL ADM SS Urea nitrogen/Creatinin e [Mass ratio] 14.5 ratio Invalid Interpretation Code 10.0 - 22.0 ratio AH ADM SS WBC 5.0 103/mcL Invalid Interpretation Code 4.5 - 10.8 10^3/mcL Workflow SS CBC panel Auto (Bld)on 07-07 -2022 Erythrocyte distribution width (RBC) [Ratio] 11.4 % Low 11.5-15.0 [facility] Comment on above: Order Comment: Speci men Type: BLOOD SPECIMEN Ordering Facility: [facility] Address: [address] [place] [address] Performed By: #### 5 8410-2 #### [facility] CLIA [id number] [address] [place] [address] [facility] [place] Hematocrit (Bld) [Volume fraction] 39.0 % Normal 36.0-46.0 [facility] Comment on above: Order Comment: Speci men Type: BLOOD SPECIMEN Ordering Facility: [facility] Address: [address] [place] [address] Performed By: #### 5 8410-2 #### [facility] CLIA [id number] [address] [place] [address] [place] Hemoglobin (Bld) [Mass/Vol] 13.2 g/dL Normal 11.5-15.5 [facility] Comment on above: Order Comment: Speci men Type: BLOOD SPECIMEN Ordering Facility: [facility] Address: [address] [place] [address] Performed By: #### 5 8410-2 #### [facility] CLIA [id number] [address] [place] [address] [place] MCH (RBC) [Entitic mass] 30.3 pg Normal 26.0-34.0 [facility] Comment on above: Order Comment: Speci men Type: BLOOD SPECIMEN Ordering Facility: [facility] Address: [address] [place], [place] [id number] Performed By: #### 5 8410-2 #### [facility] CLIA [id number] [address] [place] [address] [place] MCHC (RBC) [Mass/Vol] 33.8 g/dL Normal 30.5-36.0 [facility] Comment on above: Order Comment: Speci men Type: BLOOD SPECIMEN Ordering Facility: [facility] Address: [address] [place], [place] [address] Performed By: #### 5 8410-2 #### [facility] CLIA [id number] [address] [place] [address] [place] MCV (RBC) [Entitic vol] 89.7 fL Normal 80.0-100.0 [facility] Comment on above: Order Comment: Speci men Type: BLOOD SPECIMEN Ordering Facility: [facility] Address: [address] [place] [address] Performed By: #### 5 8410-2 #### [facility] CLIA [id number] [address] [place] [address] [place] Nucleated RBC (Bld) [#/Vol] 10*3/uL Normal <0.01 [facility] Comment on above: Order Comment: Speci men Type: BLOOD SPECIMEN Ordering Facility: [facility] Address: [address] [place] [address] Performed By: #### 5 8410-2 #### [facility] CLIA [id number] [address] [place] [address] [place] Platelet mean volume (Bld) [Entitic vol] 11.2 fL Normal 9.0-12.7 [facility] Comment on above: Order Comment: Speci men Type: BLOOD SPECIMEN Ordering Facility: [facility] Address: [address] [place] [address] Performed By: #### 5 8410-2 #### [facility] CLIA [id number] [address] [place] [address] [place] Platelets (Bld) [#/Vol] 181 10*3/uL Normal 150-400 [facility] Comment on above: Order Comment: Speci men Type: BLOOD SPECIMEN Ordering Facility: [facility] Address: [address] [place], [place] [address] Performed By: #### 5 8410-2 #### [facility] CLIA [id number] [address] [place] [address] [place] RBC (Bld) [#/Vol] 4.35 10*6/uL Normal 3.90-5.20 [facility] Comment on above: Order Comment: Speci men Type: BLOOD SPECIMEN Ordering Facility: [facility] Address: [address] [place] [id number] Performed By: #### 5 8410-2 #### [facility] CLIA [id number] [address] [place] [address] [facility] WBC (Bld) [#/Vol] 6.30 10*3/uL Normal 3.70-11.00 [facility] Comment on above: Order Comment: Speci men Type: BLOOD SPECIMEN Ordering Facility: [facility] Address: [address] [place], [place] [address] Performed By: #### 5 8410-2 #### [facility] CLIA [id number] [address] [place] [address] [facility] Comprehensive metabolic 2000 panelon 08-18-2021 Albumin [Mass/Vol] 3.8 g/dL Normal 3.2-5.0 [facility] Comment on above: Order Comment: Speci men Type: BLOOD SPECIMEN Ordering Facility: [facility] Address: [address] [place], [place] [address] Performed By: #### 2 4323-8, 5643-2 #### [facility] CLIA [id number] [address] [place] [address] [place] ALP [Catalytic activity/Vol] 91 U/L Normal 45-117 [facility] Comment on above: Order Comment: Speci men Type: BLOOD SPECIMEN Ordering Facility: [facility] Address: [address] [place], [place] [address] Performed By: #### 2 4323-8, 5643-2 #### [facility] CLIA [id number] [address] [place] [address] [place] ALT [Catalytic activity/Vol] 24 U/L Normal 13-61 [facility] Comment on above: Order Comment: Speci men Type: BLOOD SPECIMEN Ordering Facility: [facility] Address: [address] [place], [place] [address] Result Comment: Resu lts may be falsely depressed after the administration of Sulfasalazine and/or Sulfapyridine. Performed By: #### 2 4323-8, 5643-2 #### [facility] CLIA [id number] [address] [place] [address] [place] Anion gap [Moles/Vol] 6 mmol/L Normal 5-16 [facility] Comment on above: Order Comment: Speci men Type: BLOOD SPECIMEN Ordering Facility: [facility] Address: [address] [place] [address] Performed By: #### 2 4323-8, 5643-2 #### [facility] CLIA [id number] [address] [place] [address] [place] AST [Catalytic activity/Vol] 18 U/L Normal 8-34 [facility] Comment on above: Order Comment: Whitneyi dora Type: BLOOD SPECIMEN Ordering Facility: [facility] Address: [address] [place] [address] Result Comment: Resu lts may be falsely depressed after the administration of Sulfasalazine and/or Sulfapyridine. Performed By: #### 2 4323-8, 5643-2 #### [facility] CLIA [id number] [address] [place] [address] [place] Bilirubin [Mass/Vol] 0.4 mg/dL Normal 0.2-1.0 [facility] Comment on above: Order Comment: Whitneyi men Type: BLOOD SPECIMEN Ordering Facility: [facility] Address: [address] [address] Performed By: #### 2 4323-8, 5643-2 #### [facility] CLIA [id number] [address] [place] [address] [place] Calcium [Mass/Vol] 10.0 mg/dL Normal 8.5-10.5 [facility] Comment on above: Order Comment: Whitneyi men Type: BLOOD SPECIMEN Ordering Facility: [facility] Address: [address] [place] [address] Performed By: #### 2 4323-8, 5643-2 #### [facility] CLIA [id number] [address] [place], [place] [address] [place] Chloride [Moles/Vol] 107 mmol/L Normal 98-107 [facility] Comment on above: Order Comment: Speci men Type: BLOOD SPECIMEN Ordering Facility: [facility] Address: [address] [place] [address] Performed By: #### 2 4323-8, 5643-2 #### [facility] CLIA [id number] [address] [place], [place] [address] [place] CO2 [Moles/Vol] 29 mmol/L Normal 21-32 [facility] Comment on above: Order Comment: Speci men Type: BLOOD SPECIMEN Ordering Facility: [facility] Address: [address] [place] [address] Performed By: #### 2 4323-8, 5643-2 #### [facility] CLIA [id number] [address] [place] [address] [place] Creatinine [Mass/Vol] 0.91 mg/dL Normal 0.51-0.95 [facility] Comment on above: Order Comment: Speci men Type: BLOOD SPECIMEN Ordering Facility: [facility] Address: [address] [place] [address] Result Comment: Tatum ents receiving either N-Acetylcysteine (NAC) or Metamizole prior to venipuncture, may have falsely depressed results. Performed By: #### 2 4323-8, 5643-2 #### [facility] CLIA [id number] [address] [place], [place] [address] [place] ESTIMATED GLOMERULAR FILTRATION RATE 91 mL/min/1.73m??? Normal >=60 [facility] Comment on above: Order Comment: Speci men Type: BLOOD SPECIMEN Ordering Facility: [facility] Address: [address] [place] [address] Result Comment: Bess mated Glomerular Filtration Rate [...] Performed By: #### 2 4323-8, 5643-2 #### [facility] CLIA [id number] [address] [place], [place] [address] [place] Glucose [Mass/Vol] 81 mg/dL Normal 70-100 [facility] Comment on above: Order Comment: Nitin john Type: BLOOD SPECIMEN Ordering Facility: [facility] Address: [address] [place] [address] Result Comment: The [place] [employer] (ADA) provides guidance for cutoff [...] Standards of Medical Care in Diabetes 2016, [place] [employer]. Diabetes Care. 2016.39(Suppl 1). Results may be falsely elevated after the administration of Sulfapyridine. Results may be falsely depressed after the administration of Sulfasalazine. Performed By: #### 2 4323-8, 5643-2 #### [facility] CLIA [id number] [address] [place], [place] [address] [place] Potassium [Moles/Vol] 4.2 mmol/L Normal 3.5-5.1 [facility] Comment on above: Order Comment: Nitin john Type: BLOOD SPECIMEN Ordering Facility: [facility] Address: [address] [place] [address] Performed By: #### 2 4323-8, 5643-2 #### [facility] CLIA [id number] [address] [place] [address] [place] Protein [Mass/Vol] 6.4 g/dL Normal 6.0-8.5 [facility] Comment on above: Order Comment: Speci men Type: BLOOD SPECIMEN Ordering Facility: [facility] Address: [address] [place] [address] Performed By: #### 2 4323-8, 5643-2 #### [facility] CLIA [id number] [address] [place] [address] [place] Sodium [Moles/Vol] 142 mmol/L Normal 136-145 [facility] Comment on above: Order Comment: Speci men Type: BLOOD SPECIMEN Ordering Facility: [facility] Address: [address] [place] [address] Performed By: #### 2 4323-8, 5643-2 #### [facility] CLIA [id number] [address] [place] [address] [place] Urea nitrogen [Mass/Vol] 7 mg/dL Normal 7-26 [facility] Comment on above: Order Comment: Speci men Type: BLOOD SPECIMEN Ordering Facility: [facility] Address: [address] [place] [address] Performed By: #### 2 4323-8, 5643-2 #### [facility] CLIA [id number] [address] [place] [address] OF [place] ED NOTEon 08-18-2021 ED NOTE HNO ID: [id number] Author: Fredy Grider RN Service: Emergency Medicine Author Type: Registered Nurse Type: ED Notes Filed: 08/18/2021 5:17 PM Note Text: Per phone interview and disucssion with luis per psychiatric facility, pt is determined to be to be d/c home. Pt aaox3, vss, will be given d/c instructions and verbalized understanding. Normal [facility] ED NOTE HNO ID: [id number] Author: Fredy Grider RN Service: Emergency Medicine Author Type: Registered Nurse Type: ED Notes Filed: 08/18/2021 3:02 PM Note Text: Pt provided breast pump earlier for pt, [facility] called and intake completed over phone w/ pt present. [facility] ED NOTE HNO ID: [id number] Author: Koko Gonzalez RN Service: ? Author Type: Registered Nurse Type: ED Notes Filed: 08/18/2021 11:38 AM Note Text: Bed: 43-ED Expected date: 08/18/21 Expected time: 11:16 AM Means of arrival: [facility] Comments: Coming from [facility]. Psych Eval [facility] ED NOTE HNO ID: [id number] Author: Fredy Grider RN Service: Emergency Medicine Author Type: Registered Nurse Type: ED Notes Filed: 08/18/2021 11:37 AM Note Text: C/o manic episodes, not compliant w/ meds, also has had multiple pysch meds in past months with no success per patient, denies any SI or HI thoughts/ideas. aaox3 on arrival. Roseto slipped by crisis due to erratic thoughts. Had baby July 19, baby was taken away from pt due to safety per her story. [facility] ED NOTE HNO ID: [id number] Author: Fredy Grider RN Service: Emergency Medicine Author Type: Registered Nurse Type: ED Notes Filed: 08/18/2021 5:19 PM Note Text: Pt belonging and valuables scanned by security and removed and placed in secure locker outside of room. [facility] ED PROV NOTEon 08-18-2021 ED PROV NOTE HNO ID: [id number] Author: Adelaide Pillai DO Service: Emergency Medicine Author Type: Physician Type: ED Provider Notes Filed: 08/18/2021 5:14 PM Note Text: EMERGENCY DEPARTMENT NOTE [facility] Ronna Aguayo Room: [place] [address]ED HISTORY OF PRESENT ILLNESS: Ronna Aguayo is a 25 year old female with history of depression, anxiety, follows up with [facility], who presents today from [facility] on a pink slip for concerns of acute david. Per [facility] staffing, the patient has been exhibiting symptoms [...] for the following components: Result Value Specific [place], Ur 1.002 (*) All other components within normal limits CBC - Abnormal; Notable for the following components: RDW-CV 11.4 (*) All other components within normal limits URINALYSIS, WITH MICROSCOPIC - Abnormal; Notable for the following components: Specific [place], Ur <1.005 (*) Hemoglobin/Blood,Ur 1+ (*) Bacteria [...] LMP 11/30/2016 (more content not included)... Normal [facility] Ethanol SerPl-ncon 07-2 022 Ethanol [Mass/Vol] mg/dL Normal <0.010 [facility] Comment on above: Order Comment: Speci men Type: BLOOD SPECIMEN Ordering Facility: [facility] Address: [address] [place], [place] [address] Performed By: #### 2 4323-8, 5643-2 #### [facility] CLIA [id number] [address] [place], [place] [address] [facility] OF [place] HCG ( test) Ql (U)o n 08-18-2021 Specific gravity (U) [Rel density] 1.002 Low 1.005-1.030 [facility] Comment on above: Order Comment: Speci men Type: URINE SPECIMEN Ordering Facility: [facility] Address: [address] [place] [address] Performed By: #### 2 106-3, UTOX2 #### [facility] CLIA [id number] [address] [place] [address] [place] HCG Preg Ur Qlon 08-18-2021 HCG ( test) Ql (U) Negative Normal Negative [facility] Comment on above: Order Comment: Speci men Type: URINE SPECIMEN Ordering Facility: [facility] Address: [address] [place], [place] [address] Result Comment: This test is intended to aid in the early detection of . Very dilute urine samples, as indicated by a low specific gravity, may not contain client support representative levels of hCG. This test detects [...] Performed By: #### 2 106-3, UTOX2 #### [facility] CLIA [id number] [address] [place] [address] [place] SARS-CoV-2 RNA Resp Ql AMY+p robeon 08-18-2021 SARS-CoV-2 (COVID-19) RNA AMY+probe Ql (Resp) COVID 19 RESULT: SARS-CoV-2 (Agent of COVID-19) Not Detected by RT-PCR or equivalent method. This test has been authorized by FDA under an Emergency Use Authorization (EUA). Normal [facility] Comment on above: Performed By: #### 9 4500-6 #### [facility] CLIA [id number] [address] [place] [address] [place] TOX SCREEN ROUT URon 022 Amphetamines Confirm (U) [Mass/Vol] Negative Normal Negative [facility] Comment on above: Order Comment: Speci men Type: URINE SPECIMEN Ordering Facility: [facility] Address: [address] [place] [address] Result Comment: Cuto ff threshold at 1000 ng/mL. Performed By: #### 2 106-3, UTOX2 #### [facility] CLIA [id number] [address] [place] [address] [place] BARBITURATES, URINE Negative Normal Negative [facility] Comment on above: Order Comment: Speci men Type: URINE SPECIMEN Ordering Facility: [facility] Address: [address] [place] [address] Result Comment: Cuto ff threshold at 200 ng/mL. Performed By: #### 2 106-3, UTOX2 #### [facility] CLIA [id number] [address] [place] [address] [place] BENZODIAZEPINES, UR Negative Normal Negative [facility] Comment on above: Order Comment: Speci men Type: URINE SPECIMEN Ordering Facility: [facility] Address: [address] [place] [address] Result Comment: Cuto ff threshold at 200 ng/mL. Performed By: #### 2 106-3, UTOX2 #### [facility] CLIA [id number] [address] [place] [address] [place] CANNABINOIDS,URINE Negative Normal Negative [facility] Comment on above: Order Comment: Speci men Type: URINE SPECIMEN Ordering Facility: [facility] Address: [address], [place] [address] Result Comment: Cuto ff threshold at 50 ng/mL. Performed By: #### 2 106-3, UTOX2 #### [facility] CLIA [id number] [address] [place] [address] Cocaine Ql (U) Negative Normal Negative [facility] Comment on above: Order Comment: Speci men Type: URINE SPECIMEN Ordering Facility: [facility] Address: [address] [place] [address] Result Comment: Cuto ff threshold at 300 ng/mL. Performed By: #### 2 106-3, UTOX2 #### [facility] CLIA [id number] [address] [place] [address] Opiates Screen Ql (U) Negative Normal Negative [facility] Comment on above: Order Comment: Speci men Type: URINE SPECIMEN Ordering Facility: [facility] Address: [address] [place] [address] Result Comment: Cuto ff threshold at 300 ng/mL. Performed By: #### 2 106-3, UTOX2 #### [facility] CLIA [id number] [address] [place] [address] Phencyclidine Ql (U) Negative Normal Negative [facility] Comment on above: Order Comment: Speci men Type: URINE SPECIMEN Ordering Facility: [facility] Address: [address] [place] [address] Result Comment: Cuto ff threshold at 25 ng/mL. Performed By: #### 2 106-3, UTOX2 #### [facility] CLIA [id number] [address] [place] [address] Urinalysis complete panel (U )on 08-18-2021 Bacteria LM.HPF (Urine sed) [#/Area] Rare Abnormal None Seen [facility] Comment on above: Order Comment: Speci men Type: URINE SPECIMEN Ordering Facility: [facility] Address: [address] [place] [address] Performed By: #### 2 4356-8 #### [facility] CLIA [id number] [address] [place] [address] OF [place] Bilirubin Ql (U) Negative Normal Negative [facility] Comment on above: Order Comment: Speci men Type: URINE SPECIMEN Ordering Facility: [facility] Address: [address] [place] [address] Performed By: #### 2 4356-8 #### [facility] CLIA [id number] [address] [place] [address] OF [place] Clarity (Unsp spec) Clear Normal Clear [facility] Comment on above: Order Comment: Speci men Type: URINE SPECIMEN Ordering Facility: [facility] Address: [address] [place] [address] Performed By: #### 2 4356-8 #### [facility] CLIA [id number] [address] [place] [address] OF [facility] Color (U) Straw Normal Yellow [facility] Comment on above: Order Comment: Speci men Type: URINE SPECIMEN Ordering Facility: [facility] Address: [address] [place] [address] Performed By: #### 2 4356-8 #### [facility] CLIA [id number] [address] [place] [address] [place] Epithelial cells LM.HPF (Urine sed) [#/Area] Few Normal [facility] Comment on above: Order Comment: Speci men Type: URINE SPECIMEN Ordering Facility: [facility] Address: [address] [place] [address] Performed By: #### 2 4356-8 #### [facility] CLIA [id number] [address] [place] [address] OF [place] Glucose Test strip (U) [Mass/Vol] Negative Normal Negative [facility] Comment on above: Order Comment: Speci men Type: URINE SPECIMEN Ordering Facility: [facility] Address: [address] [place] [address] Performed By: #### 2 4356-8 #### [facility] CLIA [id number] [address] [place] [address] Hemoglobin Ql (U) 1+ Abnormal Negative [facility] Comment on above: Order Comment: Speci men Type: URINE SPECIMEN Ordering Facility: [facility] Address: [address] [place] [address] Performed By: #### 2 4356-8 #### [facility] CLIA [id number] [address] [place] [address] OF [facility] Ketones Ql (U) Negative Normal Negative [facility] Comment on above: Order Comment: Speci men Type: URINE SPECIMEN Ordering Facility: [facility] Address: [address] [place] [address] Performed By: #### 2 4356-8 #### [facility] CLIA [id number] [address] [place] [address] Leukocyte esterase Test strip Ql (U) Negative Normal Negative [facility] Comment on above: Order Comment: Speci men Type: URINE SPECIMEN Ordering Facility: [facility] Address: [address] [place] [address] Performed By: #### 2 4356-8 #### [facility] CLIA [id number] [address] [place] [address] Nitrite Ql (U) Negative Normal Negative [facility] Comment on above: Order Comment: Speci men Type: URINE SPECIMEN Ordering Facility: [facility] Address: [address] [place] [address] Performed By: #### 2 4356-8 #### [facility] CLIA [id number] [address] [place] [address] OF [facility] pH (U) 8.0 [pH] Normal 5.0-8.0 [facility] Comment on above: Order Comment: Speci men Type: URINE SPECIMEN Ordering Facility: [facility] Address: [address] [place] [address] Performed By: #### 2 4356-8 #### [facility] CLIA [id number] [address] [place] [address] [place] Protein (U) [Mass/Vol] Normal [facility] Comment on above: Order Comment: Speci men Type: URINE SPECIMEN Ordering Facility: [facility] Address: [address] [place] [address] Result Comment: Visi ble blood causes falsely elevated results for analyte Protein. Due to this limitation, Protein will not be reported for patients whose urine contains visible blood. Performed By: #### 2 4356-8 #### [facility] CLIA [id number] [address] [place] [address] [place] RBC LM.HPF (Urine sed) [#/Area] 0-3 /HPF Normal 0-3 /HPF [facility] Comment on above: Order Comment: Speci men Type: URINE SPECIMEN Ordering Facility: [facility] Address: [address] [place] [address] Performed By: #### 2 4356-8 #### [facility] CLIA [id number] [address] [place] [address] STATES [facility] Specific gravity (U) [Rel density] <1.005 Low 1.005-1.030 [facility] Comment on above: Order Comment: Speci men Type: URINE SPECIMEN Ordering Facility: [facility] Address: [address] [place] [address] Performed By: #### 2 4356-8 #### [facility] CLIA [id number] [address] [place] [address] [place] Urobilinogen Ql (U) Negative Normal Negative [facility] Comment on above: Order Comment: Speci men Type: URINE SPECIMEN Ordering Facility: [facility] Address: [address] [place] [address] Performed By: #### 2 4356-8 #### [facility] CLIA [id number] [address] [place] [address] [place] WBC LM.HPF (Urine sed) [#/Area] 0-5 /HPF Normal 0-5 /HPF [facility] Comment on above: Order Comment: Speci men Type: URINE SPECIMEN Ordering Facility: [facility] Address: [address] [place] [address] Performed By: #### 2 4356-8 #### [facility] CLIA [id number] [address] [place] [address] [place] OF [place] LABORATORYOrdered By: SYSTEM SYSTEM [...] Non-Reactive (07/18/21 8:01 AM) Invalid Interpretation Code Non-Reactive Man Viro/Sero SS MSCon 05-22-2021 [facility] DATE OF SERVICE: 11/2021 REASON OF VISIT: [...] I palpated her abdomen, I could feel [facility] PATIENT NAME: RONNA AGUAYO [address] [facility] [place] [address] MEDICAL REC #: [id number] [place] [id number] [facility] REPORT [facility] movements in the [...] her with list of OB with contact [facility] PATIENT NAME: RONNA AGUAYO [address] MEDICAL REC #: [id number] [place] [address] [facility] REPORT [facility] information and she was explained in great detail that tomorrow she should call an OB and try to get an appointment and be seen by an OB and get continuity of care of her as well. I instructed her to notify her family members. Patient understands and agreed. Hoang Sweeney MD /[id number] [facility] File#: [id number] END OF DOCUMENT / CHANGE LOG FOLLOWS Last Edited By [employer]. Signed By Hoang Sweeney MD #[id number] Hoang Sweeney MD #[id number] on 05/25/2021 15:14 ET on 05/25/2021 15:14 ET Revision Number - 2 Verified/Reviewed by 05/25/[address] [facility] PATIENT NAME: RONNA AGUAYO R [address] MEDICAL REC #: [id number] [place] [address] [facility] RE[facility] Normal [facility] [place] URINE PREGNANCYon 05-22-2021 Beta HCG ( test) Ql (U) Positive Normal NEGATIVE [facility] Comment on above: Order Comment: Shital stewart [facility] UR SPEC GRAV 1.010 Normal 1.005-1.030 [facility] Comment on above: Order Comment: Shital stewart [facility] LABORATORYOrdered By: Frannie Michael on 05-21-2021 Appearance (U) Clear (05/21/21 12:48 AM) Invalid Interpretation Code Clear AH Auto Urine SS Bilirubin Ql (U) Negative (05/21/21 12:48 AM) Invalid Interpretation Code Neg-Trace AH Auto Urine SS Color (U) Yellow (05/21/21 12:48 AM) Invalid Interpretation Code AH Auto Urine SS Glucose Test strip (U) [Mass/Vol] Negative Invalid Interpretation Code Negativemg/d L AH Auto Urine SS Hemoglobin Auto test strip (U) [Mass/Vol] Negative (05/21/21 12:48 AM) Invalid Interpretation Code Neg-Trace AH Auto Urine SS Ketones Ql (U) 40 mg/dL Invalid Interpretation Code Neg-Tracemg/ dL AH Auto Urine SS UA Leuk Est Trace *NA* (05/21/21 12:48 AM) Invalid Interpretation Code Negative AH Auto Urine SS UA Nitrite Negative (05/21/21 12:48 AM) Invalid Interpretation Code Negative Auto Urine SS UA pH 6.5 (05/21/21 12:48 AM) Invalid Interpretation Code 5.0 - 8.0 AH Auto Urine SS UA Protein Negative Invalid Interpretation Code Negativemg/d L AH Auto Urine SS UA Spec Grav 1.015 (05/21/21 12:48 AM) Invalid Interpretation Code 1.006-1.029 AH Auto Urine SS UA Specimen Type Clean Catch (05/21/21 12:48 AM) Invalid Interpretation Code AH Auto Urine SS UA Urobilinogen 0.2 E.U./dL Invalid Interpretation Code 0.2-1.0E.U./ dL AH Auto Urine SS LABORATORYOrdered By: SYSTEM [...] 10.80 10^3/mcL AH Remisol SS MSCon 04-13-2021 [facility] DATE OF SERVICE: 03/2021 REASON FOR VISIT: [...] and foot. Similar rash on the left [facility] PATIENT NAME: RONNA AGUAYO [address] MEDICAL REC #: [id number] [place] [address] [facility] REPORT STATCARE PHYSICIAN side but not [...] to her that she should see the clinical study manager again about her long-term eczema problem. The patient understands and agreed. Hoang Sweeney MD PP/[id number] [facility] File#: [id number] [facility] PATIENT NAME: RONNA AGUAYO [facility] [address] MEDICAL REC #: [id number] [place] [address] [facility] REPORT [facility]CARE PHYSICIAN END OF DOCUMENT / CHANGE LOG FOLLOWS Last Edited By Elec. Signed By Hoang Sweeney MD #PAWPR Hoang Sweeney MD #PAWPR on 04/14/2021 15:48 ET on 04/14/2021 15:48 ET Revision Number - 2 Verified/Reviewed by 04/14/[address] [facility] PATIENT NAME: RONNA AGUAYO Germán R [address] [facility] [address] MEDICAL REC #: [id number] [place] [address] [facility] REPORT [facility]ARE PHYSICIAN Normal [facility] LABORATORYOrdered By: Boubacar Jimenez on 03-26-2021 Date [...] Comment on above: Result Comment: Note s 1991 Hospitalized No (03/26/21 1:13 PM) Invalid Interpretation [...] notified. Results have been reported to the [place] [facility]. Notes 1990 Symptomatic as Defined [...] Comment on above: Result [place]: [place] [id number] FLU B PCR Negative 6 (03/21/21 4:24 PM) Invalid Interpretation Code Negative AH Auto Viro/Sero SS Comment on above: Result [place]: [place] [address] Hospitalized No (03/21/21 4:24 PM) Invalid Interpretation [...] Comment on above: Result Comment: [place] [id number] SARS-CoV-2 (COVID-19) RNA AMY+probe Ql (Unsp spec) Positive 2 *ABN* (03/21/21 4:24 PM) Invalid Interpretation Code Negative Auto Viro/Sero SS Comment on above: Result Comment: Note s [id number] This organism causes a reportable disease. Infection Control has been notified. Results have been reported to the [facility]. Symptomatic as Defined by CDC No (03/21/21 4:24 PM) Invalid Interpretation Code Auto Viro/Sero SS LABORATORYOrdered By: Zackery henry on 03-21-2021 Glucose [Mass/Vol] 140 mg/dL Invalid Interpretation Code 70 - 110 mg/dL [facility] Work Phone: Appearance (U) Clear (03/21/21 2:47 PM) [facility] Work Phone: Bilirubin Urine Dipstick Negative (03/21/21 2:47 PM) [facility] Work Phone: Blood Urine Dipstick Negative (03/21/21 2:47 PM) [facility] Work Phone: Glucose Urine Dipstick Negative (03/21/21 2:47 PM) [facility] Work Phone: Ketones Urine Dipstick Negative (03/21/21 2:47 PM) [facility] Work Phone: Leukocytes Urine Dipstick Negative (03/21/21 2:47 PM) [facility] Work Phone: Nitrite Urine Dipstick Negative (03/21/21 2:47 PM) [facility] Work Phone: pH Urine Dipstick 7 (03/21/21 2:47 PM) [facility] Work Phone: Protein Urine Dipstick Negative (03/21/21 2:47 PM) [facility] Work Phone: Specific [place] Urine Dipstick 1.015 (03/21/21 2:47 PM) [facility] Work Phone: Urine Color Urine Dipstick Pale Yellow (03/21/21 2:47 PM) [facility] Work Phone: Urobilinogen Urine Dipstick 0.2 mg/dl (03/21/21 2:47 PM) [facility] Work Phone: LABORATORYOrdered By: Mahsa Gifford on [...] sed) [#/Area] 4 /[HPF] Invalid Interpretation Code Negative/HPF AH Auto Urine SS Bilirubin Ql (U) Negative (03/11/21 9:05 PM) Invalid Interpretation Code Neg-Trace AH Auto Urine SS Color (U) Yellow (03/11/21 9:05 PM) Invalid Interpretation Code AH Auto Urine SS Glucose Test strip (U) [Mass/Vol] Negative Invalid Interpretation Code Negativemg/d L AH Auto Urine SS Hemoglobin Auto test strip (U) [Mass/Vol] Large *ABN* (03/11/21 9:05 PM) Invalid Interpretation Code Neg-Trace AH Auto Urine SS Ketones Ql (U) Negative Invalid Interpretation Code Neg-Tracemg/ dL AH Auto Urine SS RBC.non-dysmorphic LM Ql [...] UA Protein 30 mg/dL Invalid Interpretation Code Negativemg/d L AH Auto Urine SS UA RBC 50-100 /HPF Invalid Interpretation Code 0-2/HPF AH Auto Urine SS UA Spec Grav 1.015 (03/11/21 9:05 PM) Invalid Interpretation Code 1.006-1.029 AH Auto Urine SS UA Specimen Type Clean Catch (03/11/21 9:05 PM) Invalid Interpretation Code AH Auto Urine SS UA Squam Epithelial 0-2 /HPF Invalid Interpretation Code 0-20/HPF AH Auto Urine SS UA Urobilinogen 0.2 E.U./dL Invalid Interpretation Code 0.2-1.0E.U./ dL AH Auto Urine SS WBC LM.HPF (Urine sed) [#/Area] LOADED /HPF Invalid Interpretation Code 0-5/HPF AH Auto Urine SS MSCon 02-21-2021 [facility] REPORT Normal [facility] DATE OF SERVICE: 11/2021 REASON FOR VISIT: [...] Contact dermatitis of the face, with . [facility] PATIENT NAME: RONNA AGUAYO [address] [facility] [address] MEDICAL REC #: [id number] [place] [address] [facility] REPORT STATCARE PHYSICIAN PLAN: Clinical findings [...] use topical steroids. She understands and agrees. Pratheep Pawa, MD PP/[id number] [facility] File#: [id number] END OF DOCUMENT / CHANGE LOG FOLLOWS Last Edited By Elec. Signed By Hoang Sweeney MD #PAWPR Hoang Sweeney MD #PAWPR on 02/24/2021 13:40 ET on 02/24/2021 13:40 ET Revision Number - 2 Verified/Reviewed by [facility] PATIENT NAME: RONNA AGUAYO [facility] [address] MEDICAL REC #: [id number] [place] [address] [facility] REPORT STATCARE PHYSICIAN 02/24/[address] [facility] PATIENT NAME: RONNA AGUAYO [facility] [address] MEDICAL REC #: [id number] [place] [address] [facility] REPORT STATCARE PHYSICIAN Normal [facility] LABORATORYOrdered By: Washington Sung on 01-31-2021 Adenovirus [...] Detected AH Auto Viro/Sero SS RSV RNA AMY+non-probe Ql (Nph) Not Detected *NA* (01/31/21 10:10 AM) Invalid Interpretation Code Not Detected AH Auto Viro/Sero SS SARS-CoV-2 (COVID-19) RNA AMY+probe Ql (Unsp spec) Detected 1 *ABN* (01/31/21 10:10 AM) Invalid Interpretation Code Not Detected AH Auto Viro/Sero SS Comment on above: Result Comment: This organism causes a reportable disease. Infection Control has been notified. Results have been reported to the [facility]. Sandy 01-01-2021 EMERGENCY PHYSICIAN REPORT This is a preliminary report only, as the practitioner review and authentication has not occurred. [facility] ER PHYSICIAN ASSESSMENT DEMOGRAPHICS [employer] Patient: RONNA AGUAYO Sex: F : 1995 Age: 25 yr Account No: [id number] Registration Date: 08:01/01/2021 Address: [address] [place] [address] Address: [place] [address] REGISTRATION ED Number: [id number] Marital Status: S Financial Class: [facility] Priority: 3 - Urgent Complaint: Complaint: Vaginal Drainage Stated Complaint: PT IS 11 WEEKS AND REPORTS DISCHARGE THAT SHE NOTICED YESTERDAY. PT DENIES BLEEDING. PT DENIES PAIN. Arrival Date: 01/01/2021 08:25 Triage Date: 01/01/2021 08:37 Mode of Arrival: *Privately Owned Vehicle WC: N Language: Malaysian Transport: Ambulatory/Walk In BED E38 In: 01/01/2021 11:21:07 01/01/2021 [facility] PATIENT NAME: RONNA AGUAYO R [address] [facility] [address] MEDICAL REC #: [id number] [place] [address] EMERGENCY DEPARTMENT REPORT EMERGENCY DEPARTMENT PHYSICIAN 11:21:07 [...] past month? Where no 01/01/2021 08:[address] [facility] PATIENT NAME: SARAHY AGUAYOSANDEE Rodríguez [address] [facility] [address] MEDICAL REC #: [id number] [place] [address] EMERGENCY DEPARTMENT REPORT EMERGENCY DEPARTMENT PHYSICIAN PAST HUM[employer] PROFESSIONAL HIST Social History: Last Menstrual Period 01/01/2021 [...] 08:37 Pain Level: 0 01/01/2021 08:[address] [facility] PATIENT NAME: RONNA AGUAYO [address] [facility] [address] MEDICAL REC #: [id number] [place] [address] EMERGENCY DEPARTMENT REPORT EMERGENCY DEPARTMENT PHYSICIAN VS-G[facility] [...] called for placement (more content not included)... [facility] 11-24-2020 EMERGENCY PHYSICIAN REPORT This is a preliminary report only, as the practitioner review and authentication has not occurred. [facility] ER PHYSICIAN ASSESSMENT RECORDS : FlexChartData Event Time: 11/24/2020 18:05 Status: Signed [facility] Ronna Aguayo [[id number]] Mid-Level Chart (V2b) 1995 Chart created at 11/24/2020 17:56 by Jesusita Powell Chart closed at 11/24/2020 18:15 Entry in Emergency Department at 11/24/2020 16:41, departure at 11/24/2020 18:26 Patient Name: Ronna Aguayo Record Number: [id number] Date: 11/24/2020 17:56 Entered Department at: 11/24/2020 [...] been currently staying in [place] [facility]. She also has a history of eczema where she has had similar flareups in the past, in [facility] PATIENT NAME: RONNA AGUAYO [address] [facility] [address] MEDICAL REC #: [id number] [place] [address] EMERGENCY DEPARTMENT REPORT EMERGENCY DEPARTMENT PHYSICIAN which [...] patient does have a rash consistent with [facility] PATIENT NAME: RONNA AGUAYO [address] [facility] [address] MEDICAL REC #: [id number] [place] [address] EMERGENCY DEPARTMENT REPORT EMERGENCY DEPARTMENT PHYSICIAN dermatitis. It is possible there may be an allergic component. She has been currently staying [place] and has had a change of detergents and soaps over the course of the last few months which may be contributory. There is no evidence of any hives, anaphylactic reaction. No evidence of any cellulitis at this time. [place], and she does have diffuse itching, so [...] and electro (more content not included)... Normal [facility] DIPSTICKon 11-19-2020 POC APPEARANCE CLEAR Normal CLEAR [facility] Comment on above: Order Comment: Rameshu s: MAS POC BILIRUBIN Negative Normal NEGATIVE [facility] Comment on above: Order Comment: Campu s: MAS POC BLOOD 10 Normal NEGATIVE [facility] Comment on above: Order Comment: Rameshu s: MAS POC COLOR YELLOW Normal [facility] Comment on above: Order Comment: Campu s: MAS POC KETONE Negative Normal NEGATIVE [facility] Comment on above: Order Comment: Campu s: MAS POC LEUK EST Negative Normal NEGATIVE [facility] Comment on above: Order Comment: Campu s: MAS POC NITRITE Negative Normal NEGATIVE [facility] Comment on above: Order Comment: Campu s: MAS POC PROTEIN 15 MG/DL Normal NEGATIVE [facility] Comment on above: Order Comment: Rameshu s: MAS POC SPEC GRAV 1.030 Normal 1.005-1.030 [facility] Comment on above: Order Comment: Campu s: MAS POC UA GLUCOSE NORMAL Normal NORMAL [facility] Comment on above: Order Comment: Campu s: MAS POC UA PH 5.0 Normal 5-6 [facility] Comment on above: Order Comment: Rameshu s: MAS POC UROBIL NORMAL Normal NORMAL [facility] Comment on above: Order Comment: Shital s: BENJA MSCon 11-19-2020 [facility] REPORT Normal [facility] DATE OF SERVICE: 09/2020 REASON FOR VISIT: [...] on room air, pain score 4/10. HEENT: [facility] PATIENT NAME: RONNA AGUAYO [address] [facility] [address] MEDICAL REC #: [id number] [place] [id number] [facility] REPORT STATCARE PHYSICIAN Unremarkable. Chest: Clear [...] go to the hospital. Regarding seeing an HUMAN RESOURCES PROFESSIONAL, the patient stated that she knows [address] in [place] but she will go and try to get established with that OB. Regarding the eczema, I told her about jqwj-ueu-jpvybnv cortisone cream. I explained to her that I do not want to prescriber any strong cream, but sdtx-pnc-kmohxwa hydrocortisone cream should really help. I prescribed her vitamin [address] [facility] PATIENT NAME: RONNA AGUAYO [address] MEDICAL REC #: [id number] [place] [address] [facility] REPORT STATCARE PHYSICIAN daily, 30 tablets, with no refill and instructed her to see OB as soon as possible. The patient understands and agrees. Her questions were answered to her satisfaction. Hoang Sweeney MD PP/[id number] [facility] File#: [id number] END OF DOCUMENT / CHANGE LOG FOLLOWS Last Edited By Elec. Signed By Hoang Sweeney MD #PAWPR Hoang Sweeney MD #PAWPR on 11/29/2020 18:00 ET on 11/29/2020 18:00 ET Revision Number - 2 Verified/Reviewed by 11/29/[address] [facility] PATIENT NAME: RONNA AGUAYO [address] MEDICAL REC #: [id number] [place] [address] [facility] REPORT STATCARE PHYSICIAN Normal [facility] CBC W/DIFFon 11-13-2020 BASO ABS 0.00 K/CU MM Normal 0-0.2 [facility] Comment on above: Order Comment: Campu s: M Performed By: #### L 200.91844 #### [facility] LABORATORY [address] [place] [address] Basophils/100 WBC (Bld) 0.3 % Normal 0-2 [facility] Comment on above: Order Comment: Campu s: M Performed By: #### L 200.41550 #### [facility] LABOR[facility]ORY [address] [place] [address] EOS ABS 0.30 K/CU MM Normal 0-0.5 [facility] Comment on above: Order Comment: Campu s: M Performed By: #### L 200.75305 #### [facility] [address] [place] [address] Eosinophils/100 WBC (Bld) 3.5 % Normal 0-5 [facility] Comment on above: Order Comment: Campu s: M Performed By: #### L 200.15596 #### [facility] [address] [place] [address] Erythrocyte distribution width (RBC) [Ratio] 12.2 % Normal 11-14.5 [facility] Comment on above: Order Comment: Campu s: M Performed By: #### L 200.73685 #### [facility] [address] [place] [address] Hematocrit (Bld) [Volume fraction] 39.6 % Normal 35.0-47.0 [facility] Comment on above: Order Comment: Campu s: M Performed By: #### L 200.39290 #### [facility] [address] [place] [address] Hemoglobin (Bld) [Mass/Vol] 13.1 g/dL Normal 11.5-15.5 [facility] Comment on above: Order Comment: Campu s: M Performed By: #### L 200.95176 #### [facility] [address] [place] [address] IMMATR GRAN ABS 0.00 K/CU MM Normal Less than 2 [facility] Comment on above: Order Comment: Campu s: M Performed By: #### L 200.13997 #### [facility] [address] [place] [address] IMMATURE GRAN % 0.5 % Normal Less than 2 [facility] Comment on above: Order Comment: Campu s: M Performed By: #### L 200.90742 #### [facility] [address] [place] [address] LYMPH ABS 1.50 K/CU MM Normal 0.9-4.4 [facility] Comment on above: Order Comment: Campu s: M Performed By: #### L 200.94987 #### [facility] [address] [place] [address] Lymphocytes/100 WBC (Bld) 19.3 % Low 20-40 [facility] Comment on above: Order Comment: Campu s: M Performed By: #### L 200.30069 #### [facility] [address] [place] [address] MCHC (RBC) [Mass/Vol] 33.1 g/dL Normal 32.0-36.0 [facility] Comment on above: Order Comment: Campu s: M Performed By: #### L 200.67050 #### [facility] [address] [place] [address] MCV (RBC) [Entitic vol] 94.3 fL Normal 80.0-99.0 [facility] Comment on above: Order Comment: Campu s: M Performed By: #### L 200.78188 #### [facility] [address] [place] [address] MONO ABS 0.70 K/CU MM Normal 0.1-1.1 [facility] Comment on above: Order Comment: Campu s: M Performed By: #### L 200.27014 #### [facility] [address] [place] [address] Monocytes/100 WBC (Bld) 8.6 % Normal 2-10 [facility] Comment on above: Order Comment: Campu s: M Performed By: #### L 200.50110 #### [facility] [address] [place] [address] NEUTROPHIL ABS 5.30 K/CU MM Normal 2.0-8.3 [facility] Comment on above: Order Comment: Campu s: M Performed By: #### L 200.21115 #### [facility] [address] [place] [address] Neutrophils/100 WBC (Bld) 67.8 % Normal 45-75 [facility] Comment on above: Order Comment: Campu s: M Performed By: #### L 200.05574 #### [facility] [address] [place] [address] Nucleated RBC/100 WBC (Bld) [Ratio] 0.0 % Normal Less than 1 [facility] Comment on above: Order Comment: Campu s: M Performed By: #### L 200.85771 #### [facility] [address] [place] [address] Platelet mean volume (Bld) [Entitic vol] 11.4 fL Normal 9.4-12.4 [facility] Comment on above: Order Comment: Campu s: M Performed By: #### L 200.07686 #### [facility] [address] [place] [address] PLT 172 K/CU MM Normal 150-450 [facility] Comment on above: Order Comment: Campu s: M Performed By: #### L 200.68431 #### [facility] [address] [place] [address] RBC 4.20 M/CU MM Normal 3.90-5.30 [facility] Comment on above: Order Comment: Campu s: M Performed By: #### L 200.80728 #### [facility] [address] [place] [address] WBC 7.8 K/CUMM Normal 4.5-11.0 [facility] Comment on above: Order Comment: Campu s: M Performed By: #### L 200.08774 #### [facility] [address] [place] [address] Sandy 11-13-2020 EMERGENCY PHYSICIAN REPORT This is a preliminary report only, as the practitioner review and authentication has not occurred. Normal [facility] ER PHYSICIAN ASSESSMENT RECORDS : Discharge Report Event Time: 11/13/2020 15:02 : FlexChartData Event Time: 11/13/2020 15:35 Status: Signed [facility] Ronna Aguayo [[id number]] Attending Physician 1995 Chart (V2b) Chart created at 11/13/2020 14:58 by Michael Martinez Chart closed at 11/13/2020 15:00 Entry in Emergency Department at 11/13/2020 13:04, departure at 11/13/2020 15:28 Patient Name: Ronna Aguayo Record Number: [id number] Date: 11/13/2020 14:58 Entered Department at: 11/13/2020 [...] down some steps a few days ago [facility] PATIENT NAME: RONNA AGUAYO [address] [facility] [address] MEDICAL REC #: [id number] [place] 8294308 EMERGENCY DEPARTMENT REPORT EMERGENCY DEPARTMENT PHYSICIAN and [...] / 7.8 andgt;------andlt; 172 / 39.6 / [facility] PATIENT NAME: RONNA AGUAYO [address] [facility] [address] MEDICAL REC #: [id number] [place] [address] EMERGENCY DEPARTMENT REPORT EMERGENCY DEPARTMENT PHYSICIAN N:67.8 [...] Draft Reasons to Return to the ER: [facility] PATIENT NAME: RONNA AGUAYO [address] [facility] [address] MEDICAL REC #: [id number] [place] [address] EMERGENCY DEPARTMENT REPORT EMERGENCY DEPARTMENT (more content not included)... Normal [facility] SHOULDER MIN 2 VWS RTon 10 SHOULDER MIN 2 VWS RT SHOULDER MIN [...] GRAF M.D. Signed By: LAURIE GRAF M.D. 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 [facility] PATIENT NAME: RONNA AGUAYO [address] [facility] [address] MEDICAL REC #: [id number] [place] [address] [facility] REPORT STATCARE PHYSICIAN At that point, [...] perhaps she needed to get into a clinical study manager or just follow up with her [...] have to sign for them. So, we [facility] PATIENT NAME: RONNA AGUAYO R [address] [facility] [address] MEDICAL REC #: [id number] [place] [address] [facility] REPORT STATCARE PHYSICIAN did that, and [...] was already off today. Nishi Munoz DO /[id number] [facility] PATIENT NAME: RONNA AGUAYO R [address] [facility] [address] MEDICAL REC #: [id number] [place] [address] [facility] REPORT STATCARE PHYSICIAN SSI File#: [id number] END OF DOCUMENT / CHANGE LOG FOLLOWS Last Edited By Elec. Signed By Nishi Munoz DO #Nishi Boo DO #FELI on 10/01/2020 08:50 ET on 10/01/2020 08:50 ET Revision Number - 2 Verified/Reviewed by 10/01/20 0850 FELI DAVID (more content not included)... Normal [facility] BMPon 07-27-2020 Anion gap [Moles/Vol] 4 mmol/L Low - [facility] Comment on above: Order Comment: Rameshu s: M Performed By: #### L 500.50473, L500.48806, L500.92625 #### [facility] [address] [place] [address] Calcium [Mass/Vol] 9.7 mg/dL Normal 8.5-10.5 [facility] Comment on above: Order Comment: Campu s: M Result Comment: NOTE NEW NORMAL RANGE DUE TO REAGENT CHANGE Performed By: #### L 500.04953, L500.74295, L500.79188 #### [facility] [place] [address] Chloride [Moles/Vol] 108 mmol/L High 98-107 [facility] Comment on above: Order Comment: Campu s: M Performed By: #### L 500.52952, L500.32015, L500.51295 #### [facility] [address] [place] [address] CO2 [Moles/Vol] 31.0 mmol/L Normal 21-32 [facility] Comment on above: Order Comment: Campu s: M Performed By: #### L 500.39060, L500.96461, L500.22207 #### [facility] [address] [place] [address] Creatinine [Mass/Vol] 0.76 mg/dL Normal 0.510-0.950 [facility] Comment on above: Order Comment: Campu s: M Result Comment: Tatum ents receiving either N-Acetylcysteine (NAC) or Metamizole prior to venipuncture, may have falsely depressed results. Performed By: #### L 500.41298, L500.45752, L500.43389 #### [facility] [address] [place] [address] Glucose [Mass/Vol] 105 mg/dL High 70-100 [facility] Comment on above: Order Comment: Campu s: M Result Comment: 70-1 00- Normal Fasting; 100-125 Impaired Fasting; greater than 126 on more than one result- Diabetes. ADA guidelines. Results may be falsely elevated after the administration of Sulfapyridine. Results may be falsely depressed after the administration of Sulfasalazine. Performed By: #### L 500.29348, L500.26966, L500.16964 #### [facility] [address] [address] [place], [place] [id number] Potassium [Moles/Vol] 4.5 mmol/L Normal 3.5-5.1 [facility] Comment on above: Order Comment: Campu s: M Result Comment: Slig ht Hemolysis, Result may be affected. Performed By: #### L 500.52157, L500.62790, L500.25788 #### [facility] [place] [address] Sodium [Moles/Vol] 143 mmol/L Normal 136-145 [facility] Comment on above: Order Comment: Campu s: M Performed By: #### L 500.13122, L500.20070, L500.80864 #### [facility] [address] [place] [address] Urea nitrogen [Mass/Vol] 8 mg/dL Normal 7-26 [facility] Comment on above: Order Comment: Campu s: M Performed By: #### L 500.02627, L500.91155, L500.71962 #### [facility] [address] [place] [address] Urea nitrogen/Creatinin e [Mass ratio] 11 mg/mg Low 15-24 [facility] Comment on above: Order Comment: Campu s: M Performed By: #### L 500.77338, L500.21854, L500.41613 #### [facility] [address] [place], [place] [address] CBC W/DIFFon 07-27-2020 BASO ABS 0.00 K/CU MM Normal 0-0.2 [facility] Comment on above: Order Comment: Campu s: M Performed By: #### L 200.34790 ####[facility] [id number] [place], [place] [address]Uu# [phone] Basophils/100 WBC (Bld) 0.3 % Normal 0-2 [facility] Comment on above: Order Comment: Campu s: M Performed By: #### L 200.44822 ####[facility] [id number] [place], [place] [address]Ic# [phone] EOS ABS 0.30 K/CU MM Normal 0-0.5 [facility] [place] Comment on above: Order Comment: Campu s: M Performed By: #### L 200.11233 ####[address] [address]Bc# [phone] Eosinophils/100 WBC (Bld) 2.9 % Normal 0-5 [facility] [place] Comment on above: Order Comment: Campu s: M Performed By: #### L 200.60168 ####[place] [address]Ph# [phone] Erythrocyte distribution width (RBC) [Ratio] 12.3 % Normal 11-14.5 [facility] [place] Comment on above: Order Comment: Campu s: M Performed By: #### L 200.58056 ####[facility] [id number] [place], [place] [address]Ph# [phone] Hematocrit (Bld) [Volume fraction] 40.7 % Normal 35.0-47.0 [facility] [place] Comment on above: Order Comment: Campu s: M Performed By: #### L 200.28592 ####[address] [address]Dl# [phone] Hemoglobin (Bld) [Mass/Vol] 13.6 g/dL Normal 11.5-15.5 [facility] [place] Comment on above: Order Comment: Campu s: M Performed By: #### L 200.17589 ####[facility] [id number] [place] [address]Bb# [phone] IMMATR GRAN ABS 0.00 K/CU MM Normal Less than 2 [facility] [place] Comment on above: Order Comment: Campu s: M Performed By: #### L 200.30821 ####[facility] [id number] [place], [place] [address]Ph# [phone] IMMATURE GRAN % 0.3 % Normal Less than 2 [facility] [place] Comment on above: Order Comment: Campu s: M Performed By: #### L 200.88117 ####[facility] [id number] [place] [address]Ug# [phone] LYMPH ABS 1.60 K/CU MM Normal 0.9-4.4 [facility] [place] Comment on above: Order Comment: Campu s: M Performed By: #### L 200.19926 ####[place] [address]Ph# [phone] Lymphocytes/100 WBC (Bld) 13.7 % Low 20-40 [facility] Comment on above: Order Comment: Campu s: M Performed By: #### L 200.27811 ####[address] [address]Su# [phone] MCHC (RBC) [Mass/Vol] 33.4 g/dL Normal 32.0-36.0 [facility] [place] Comment on above: Order Comment: Campu s: M Performed By: #### L 200.89904 ####[place] [address]Ph# [phone] MCV (RBC) [Entitic vol] 94.7 fL Normal 80.0-99.0 [facility] Comment on above: Order Comment: Campu s: M Performed By: #### L 200.42606 ####[place] [address]Ph# [phone] MONO ABS 0.70 K/CU MM Normal 0.1-1.1 [facility] [place] Comment on above: Order Comment: Campu s: M Performed By: #### L 200.82014 ####[facility] [id number] [place] [address]Ga# [phone] Monocytes/100 WBC (Bld) 6.1 % Normal 2-10 [facility] Comment on above: Order Comment: Campu s: M Performed By: #### L 200.97431 ####[facility] [id number] [place], [place] [address]Du# [phone] NEUTROPHIL ABS 8.90 K/CU MM High 2.0-8.3 [facility] Comment on above: Order Comment: Campu s: M Performed By: #### L 200.52174 ####[facility] [id number] [place] [address]Vg# [phone] Neutrophils/100 WBC (Bld) 76.7 % High 45-75 [facility] Comment on above: Order Comment: Campu s: M Performed By: #### L 200.22136 ####[facility] [id number] [place], [place] [address]Ph# [phone] Nucleated RBC/100 WBC (Bld) [Ratio] 0.0 % Normal Less than 1 [facility] Comment on above: Order Comment: Campu s: M Performed By: #### L 200.66481 ####[facility] [id number] [place], [place] [address]Ph# [phone] Platelet mean volume (Bld) [Entitic vol] 11.2 fL Normal 9.4-12.4 [facility] Comment on above: Order Comment: Campu s: M Performed By: #### L 200.92176 ####[facility] [id number] [place] [address]Di# [phone] PLT 229 K/CU MM Normal 150-450 [facility] Comment on above: Order Comment: Campu s: M Performed By: #### L 200.71739 ####[facility] [id number] [place], [place] [address]Az# [phone] RBC 4.30 M/CU MM Normal 3.90-5.30 [facility] Comment on above: Order Comment: Campu s: M Performed By: #### L 200.53892 ####[facility] [id number] [place] [address]Ip# [phone] WBC 11.6 K/CUMM High 4.5-11.0 [facility] Comment on above: Order Comment: Shital onesimo: Meghan Performed By: #### L 200.83829 ####[facility] [id number] [place], [place] [address]Yz# [phone] CT CERVICAL SP. W/O CONon CT CERVICAL [...] ---- Signed By: Jayjay Chadwick MD FACR [email or web address] Dictated: 07/27/2020 8:02 AM Signed: 07/27/2020 8:05 AM Reported By: JAYJAY CHADWICK M.D. Signed By: JAYJAY CHADWICK M.D. Normal [facility] CT HEAD/BRAIN W/O CONon 07-13 CT HEAD/BRAIN [...] ---- Signed By: Jayjay Chadwick MD FACR [email or web address] Dictated: 07/27/2020 7:59 AM Signed: 07/27/2020 8:02 AM Reported By: JAYJAY CHADWICK M.D. Signed By: JAYJAY CHADWICK M.D. [facility] CT THORAX WITH CONon 06-15-[address] [...] ---- Signed By: Jayjay Chadwick MD FACR [email or web address] Dictated: 07/27/2020 8:05 AM Signed: 07/27/2020 8:09 AM Reported By: JAYJAY CHADWICK M.D. Signed By: JAYJAY CHADWICK M.D. [facility] Sandy 07-27-2020 EMERGENCY PHYSICIAN REPORT This is a preliminary report only, as the practitioner review and authentication has not occurred. [facility] ER PHYSICIAN ASSESSMENT RECORDS : FlexChartData Event Time: 07/27/2020 07:25 Status: Signed [facility] Ronna Aguayo [[id number]] Attending Physician 1995 Chart (V2b) Chart created at 07/27/2020 07:19 by Declan Garcia Chart closed at 07/27/2020 16:28 Entry in Emergency Department at 07/27/2020 02:58, departure at 07/27/2020 09:08 Patient Name: Ronna Aguayo Record Number: [id number] Date: 07/27/2020 07:19 Entered Department at: 07/27/2020 [...] did not black out or lose consciousness. [facility] PATIENT NAME: RONNA AGUAYO R [address] [facility] [address] MEDICAL REC #: [id number] [place] [address] EMERGENCY DEPARTMENT REPORT EMERGENCY DEPARTMENT PHYSICIAN Reports [...] W/DIFF, information as of 07/27/2020, 5:[address] [facility] PATIENT NAME: RONNA AGUAYO [address] Zarate MEDICAL REC #: [id number] [place] [address] EMERGENCY DEPARTMENT REPORT EMERGENCY DEPARTMENT PHYSICIAN 94.7 [...] information as of 07/27/2020, 5:57 am 143 --------+--------+--------and lt; 105* Anion Gap = 4 4.5 alert_gap=3 [...] thick axial images of the cervical spine [facility] PATIENT NAME: RONNA AGUAYO [address] [facility] [place] [address] Z[place] MEDICAL REC #: [id number] [place] [address] EMERGENCY DEPARTMENT REPORT EMERGENCY DEPARTMENT PHYSICIAN were obtained. Mult (more content not included)... Normal [facility] 07-27-2020 IF AMER Greater than [address] [facility] Comment on above: Order Comment: Campu s: M Performed By: #### L 500.38251, L500.75232, L500.29847 #### [facility] [address] [place] [address] IF non-AFR AMER Greater than [address] [facility] Comment on above: Order Comment: Campu s: M Performed By: #### L 500.33697, L500.01228, L500.99061 #### [facility] [address] [place] [address] HCGon 07-27-2020 HCG SER RESULT Negative Normal NEGATIVE [facility] Comment on above: Order Comment: Campu s: M Performed By: #### L 500.87701, L500.27628, L500.18680 #### [facility] [address] [place] [address] LUMBAR SPINE OBL MIN 4 VIEWS on [...] File ---- Signed By: Laurie Graf MD [email or web address] Dictated: 06/12/2020 7:39 AM Signed: 06/12/2020 7:40 AM Reported By: LAURIE GRAF M.D. Signed By: LAURIE GRAF M.D. [facility] REPORT [facility] DATE OF SERVICE: SUBJECTIVE: This is a [...] OF SYSTEMS: Constitutional: No fevers, chills, fatigue. [facility] PATIENT NAME: RONNA AGUAYO [address] [facility] [place] [address] [place] MEDICAL REC #: [id number] [place] [address] [facility] REPORT [facility] PHYSICIAN Skin: No redness, [...] acute process. Radiology overread will be performed. [facility] PATIENT NAME: RONNA AGUAYO [address] [facility] [place] [address] Zarate MEDICAL REC #: [id number] [place] [address] [facility] REPORT [facility] PHYSICIAN ASSESSMENT AND PLAN/DIAGNOSIS: Low back strain. Patient was given a note to be off of work tomorrow, but she can go back on Sunday. Recommended Tylenol, Motrin, fluids, rest, and heating pad to the back. Patient agreeable. Stable on discharge. All questions answered. FILIBERTO [id number] SSI File#: [id number] END OF DOCUMENT / CHANGE LOG FOLLOWS Last Edited By Elec. Signed By Micaela Guy Theresa PAC #WASTH on 06/14/2020 13:38 ET on 06/14/2020 13:38 ET Revision Number - 2 Verified/Reviewed by 06/14/[address] [facility] PATIENT NAME: RONNA AGUAYO [address] [facility] [address] [place] MEDICAL REC #: [id number] [place] [address] [facility] REPORT [facility] PHYSICIAN Normal [facility] URINE PREGNANCYon 06-11-2020 Beta HCG ( test) Ql (U) Negative Normal NEGATIVE [facility] Comment on above: Order Comment: Shital s: BENJA UR SPEC GRAV 1.010 Normal 1.005-1.030 [facility] Comment on above: Order Comment: Shital s: BENJA MSCon 06-09-2020 [facility] REPORT Normal [facility] MSC DATE OF SERVICE: REASON OF VISIT: [...] spleen were not palpable. Overall, exam did [facility] PATIENT NAME: RONNA AGUAYO [address] [facility] [address] [place] MEDICAL REC #: [id number] [place] [id number] [facility] REPORT STATCARE PHYSICIAN not show any [...] Patient understands and agrees. Hoang Sweeney MD [id number] SSI File#: [id number] END OF DOCUMENT / CHANGE LOG FOLLOWS [facility] PATIENT NAME: RONNA AGUAYO Alicia Zarate MEDICAL REC #: [id number] [place] [address] [facility] REPORT [facility] PHYSICIAN Last Edited By Elec. Signed By Hoang Sweeney MD #PAWPR Hoang Sweeney MD #PAWPR on 06/10/2020 18:38 ET on 06/10/2020 18:38 ET Revision Number - 2 Verified/Reviewed by 06/10/[address] [facility] PATIENT NAME: RONNA AGUAYO [address] [place] MEDICAL REC #: [id number] [place] [address] [facility] REPORT [facility] PHYSICIAN Normal [facility] Vital Signs Date Time Vital Sign Value Performing Clinician Facility 03-17-2024 10:07-0500 Body mass index (BMI) [Ratio] 22.54 kg/m2 Ra Cantu APRN.CNP Work Phone: [facility] 03-17-2024 10:07-0500 Body temperature 98.29 [degF] Ra Cantu APRN.CNP Work Phone: [facility] 03-17-2024 10:07-0500 Body weight 55.9 kg Ra Cantu APRN.DENTAL OFFICE ASSISTANT Work Phone: [facility] 03-17-2024 10:07-0500 Diastolic blood pressure 74 mm[Hg] Ra James HEALTH POLICY NURSE.DENTAL OFFICE ASSISTANT Work Phone: [facility] 03-17-2024 10:07-0500 Heart rate 84 /min Ra Cantu HEALTH POLICY NURSE.DENTAL OFFICE ASSISTANT Work Phone: [facility] 03-17-2024 10:07-0500 Respiratory rate 16 /min Ra Cantu HEALTH POLICY NURSE.DENTAL OFFICE ASSISTANT Work Phone: [facility] 03-17-2024 10:07-0500 SaO2% (BldA) [Mass fraction] 97 % Ra Cantu HEALTH POLICY NURSE.DENTAL OFFICE ASSISTANT Work Phone: [facility] 03-17-2024 10:07-0500 Systolic blood pressure 116 mm[Hg] Ra Cantu HEALTH POLICY NURSE.DENTAL OFFICE ASSISTANT Work Phone: [facility] 10-24-2023 09:22-0400 Body mass index (BMI) [Ratio] 22.5 kg/m2 Rodrigue Humberto HEALTH POLICY NURSE.DENTAL OFFICE ASSISTANT Work Phone: [facility] 10-24-2023 09:22-0400 Body temperature 98.49 [degF] Rodrigue Humberto HEALTH POLICY NURSE.DENTAL OFFICE ASSISTANT Work Phone: [facility] 10-24-2023 09:22-0400 Body weight 55.8 kg Rodrigue Humberto HEALTH POLICY NURSE.DENTAL OFFICE ASSISTANT Work Phone: [facility] 10-24-2023 09:22-0400 Diastolic blood pressure 64 mm[Hg] Rodrigue Scarletorf HEALTH POLICY NURSE.DENTAL OFFICE ASSISTANT Work Phone: [facility] 10-24-2023 09:22-0400 Heart rate 96 /min Rodrigue Novakorf HEALTH POLICY NURSE.DENTAL OFFICE ASSISTANT Work Phone: [facility] 10-24-2023 09:22-0400 Respiratory rate 16 /min Rodrigue Novakorf HEALTH POLICY NURSE.DENTAL OFFICE ASSISTANT Work Phone: [facility] 10-24-2023 09:22-0400 SaO2% (BldA) [Mass fraction] 100 % Rodrigue Paul HEALTH POLICY NURSE.DENTAL OFFICE ASSISTANT Work Phone: [facility] 10-24-2023 09:22-0400 Systolic blood pressure 112 mm[Hg] Rodrigue Paul HEALTH POLICY NURSE.DENTAL OFFICE ASSISTANT Work Phone: [facility] 11-14-2022 17:22-0400 Body temperature 97.7 [degF] JAYJAY ALVES MD [facility] 11-14-2022 17:22-0400 Diastolic Blood Pressure Non-Invasive 67 1 JAYJAY ALVES MD [address] [place] [address] 11-14-2022 17:22-0400 Heart rate 80 /min JAYJAY ALVES MD [address] [place] [address] 11-14-2022 17:22-0400 Respiratory rate 18 /min JAYJAY ALVES MD [address] [place] [address] 11-14-2022 17:22-0400 Systolic Blood Pressure Non-Invasive 112 1 JAYJAY ALVES MD [address] [place] [address] 11-14-2022 11:12-0400 Body temperature 98.06 [degF] JAYJAY ALVES MD [address] [place] [address] 11-14-2022 11:12-0400 Diastolic Blood Pressure Non-Invasive 62 1 JAYJAY ALVES MD [facility] 11-14-2022 11:12-0400 Heart rate 76 /min JAYJAY ALVES MD [facility] 11-14-2022 11:12-0400 Reason For Taking VItal Signs JAYJAY ALVES MD [facility] 11-14-2022 11:12-0400 Respiratory rate 16 /min JAYJAY ALVES MD [address] [place] [address] 11-14-2022 11:12-0400 Systolic Blood Pressure Non-Invasive 98 1 JAYJAY ALVES MD [facility] 11-14-2022 09:46-0400 Blood Pressure Cuff Size JAYJAY ALVES MD [facility] 11-14-2022 09:46-0400 Blood Pressure Location JAYJAY ALVES MD [facility] 11-14-2022 09:46-0400 Blood Pressure Method JAYJAY ALVES MD [address] [place] [address] 11-14-2022 09:46-0400 Body height 157.5 cm JAYJAY ALVES MD [facility] 11-14-2022 09:46-0400 Body temperature 98.96 [degF] JAYJAY ALVES MD [facility] 11-14-2022 09:46-0400 Body weight 52.6 kg JAYJAY ALVES MD [address] [place] [address] 11-14-2022 09:46-0400 Diastolic Blood Pressure Non-Invasive 76 1 JAYJAY ALVES MD [facility] 11-14-2022 09:46-0400 Heart rate 85 /min JAYJAY ALVES MD [address] [place] [address] 11-14-2022 09:46-0400 Systolic Blood Pressure Non-Invasive 112 1 JAYJAY ALVES MD [facility] 05-06-2022 20:27-0400 Body temperature 97.88 [degF] DR ELYSSA BOLDEN MD [facility] 05-06-2022 20:27-0400 Body weight 51.[address] ELYSSA BOLDEN MD [facility] 05-06-2022 20:27-0400 Diastolic Blood Pressure Non-Invasive [address] ELYSSA BOLDEN MD [facility] 05-06-2022 20:27-0400 Heart rate 77 /min DR ELYSSA BOLDEN MD [facility] 05-06-2022 20:27-0400 Respiratory rate 16 /min DR ELYSSA BOLDEN MD [facility] 05-06-2022 20:27-0400 Systolic Blood Pressure Non-Invasive [address] ELYSSA BOLDEN MD [facility] 04-16-2022 11:27-0500 Body temperature 98.01 [degF] [place] Work Phone: [facility] 04-16-2022 11:27-0500 Body weight 51.71 kg Urg [place] Work Phone: [facility] 04-16-2022 11:27-0500 Diastolic blood pressure 67 mm[Hg] Urg [place] Work Phone: [facility] 04-16-2022 11:27-0500 Heart rate 80 /min Urg [place] Work Phone: [facility] 04-16-2022 11:27-0500 Respiratory rate 16 /min Urg [place] Work Phone: [facility] 04-16-2022 11:27-0500 SaO2% (BldA) [Mass fraction] 100 % Urg [place] Work Phone: [facility] 04-16-2022 11:27-0500 Systolic blood pressure 121 mm[Hg] Urg [place] Work Phone: [facility] 02-24-2022 13:51-0500 Diastolic Blood Pressure Non-Invasive [address] BAN ALVES MD [facility] 02-24-2022 13:51-0500 Heart rate 83 /min DR BAN ALVES MD [facility] 02-24-2022 13:51-0500 Respiratory rate 16 /min DR BAN ALVES MD [facility] 02-24-2022 13:51-0500 Systolic Blood Pressure Non-Invasive [address] BAN ALVES MD [facility] 02-24-2022 11:06-0500 Body temperature 97.88 [degF] DR BAN ALVES MD [facility] 02-24-2022 11:06-0500 Body weight [address] BAN ALVES MD [facility] 02-24-2022 11:06-0500 Diastolic Blood Pressure Non-Invasive [address] BAN ALVES MD [facility] 02-24-2022 11:06-0500 Heart rate 95 /min DR BAN ALVES MD [facility] 02-24-2022 11:06-0500 Respiratory rate 16 /min DR BAN ALVES MD [facility] 02-24-2022 11:06-0500 Systolic Blood Pressure Non-Invasive [address] BAN ALVES MD [facility] 02-13-2022 10:03-0500 Body temperature 99.14 [degF] DR ARAMIS GEORGE MD [facility] 02-13-2022 10:03-0500 Body weight [address] ARAMIS GEORGE MD [facility] 02-13-2022 10:03-0500 Diastolic Blood Pressure Non-Invasive [address] ARAMIS GEORGE MD [facility] 02-13-2022 10:03-0500 Heart rate 87 /min DR ARAMIS GEORGE MD [facility] 02-13-2022 10:03-0500 Respiratory rate 16 /min DR ARAMIS GEORGE MD [facility] 02-13-2022 10:03-0500 Systolic Blood Pressure Non-Invasive [address] ARAMIS GEORGE MD [facility] 11-19-2021 10:32-0400 Body temperature 97.7 [degF] [facility] 11-19-2021 10:32-0400 Body weight 54 kg J[facility]AL [facility] MASSEY [facility] 11-19-2021 10:32-0400 Diastolic blood pressure 86 mm[Hg] JAMAAL CRUZ DO [facility] 11-19-2021 10:32-0400 Heart rate 81 /min JAMAAL FLORENTINOT DO [facility] 11-19-2021 10:32-0400 Respiratory rate 18 /min J[facility]AL [facility] 11-19-2021 10:32-0400 Systolic blood pressure 162 mm[Hg] JAMAAL CRUZ DO [facility] 09-11-2021 13:14-0400 Body weight 54.5 kg JAYJAY ALVES MD [facility] 09-11-2021 13:14-0400 Diastolic blood pressure 72 mm[Hg] JAYJAY ALVES MD [facility] 09-11-2021 13:14-0400 Heart rate 70 /min JAYJAY ALVES MD [facility] 09-11-2021 13:14-0400 Respiratory rate 16 /min JAYJAY ALVES MD [facility] 09-11-2021 13:14-0400 Systolic blood pressure 119 mm[Hg] JAYJAY ALVES MD [facility] 09-08-2021 20:30-0400 Body temperature 98.06 [degF] JAYJAY ALVES MD [facility] 09-08-2021 20:30-0400 Body weight 55.7 kg JAYJAY ALVES MD [facility] 09-08-2021 20:30-0400 Diastolic blood pressure 77 mm[Hg] JAYJAY ALVES MD [facility] 09-08-2021 20:30-0400 Heart rate 81 /min JAYJAY ALVES MD [facility] 09-08-2021 20:30-0400 Respiratory rate 18 /min JAYJAY ALVES MD [facility] 09-08-2021 20:30-0400 Systolic blood pressure 121 mm[Hg] JAYJAY ALVES MD [facility] 09-02-2021 13:36-0400 Diastolic blood pressure 69 mm[Hg] JAYJAY ALVES MD [address] 09-02-2021 13:36-0400 Heart rate 61 /min JAYJAY ALVES MD [address] [place] [address] 09-02-2021 13:36-0400 Respiratory rate 18 /min JAYJAY ALVES MD [address] 09-02-2021 13:36-0400 Systolic blood pressure 109 mm[Hg] JAYJAY ALVES MD [address] [place] [address] 09-02-2021 11:41-0400 Diastolic blood pressure 68 mm[Hg] JAYJAY ALVES MD [address] [place] [address] 09-02-2021 11:41-0400 Heart rate 66 /min JAYJAY ALVES MD [address] [place] [address] 09-02-2021 11:41-0400 Respiratory rate 16 /min JAYJAY ALVES MD [address] [place] [address] 09-02-2021 11:41-0400 Systolic blood pressure 119 mm[Hg] JAYJAY ALVES MD [address] [place] [address] 09-02-2021 10:18-0400 Body temperature 98.06 [degF] JAYJAY ALVES MD [address] [place] [address] 09-02-2021 10:18-0400 Body weight 55.5 kg JAYJAY ALVES MD [address] 09-02-2021 10:18-0400 Diastolic blood pressure 75 mm[Hg] JAYJAY ALVES MD [address] [place] [address] 09-02-2021 10:18-0400 Heart rate 80 /min JAYJAY ALVES MD [address] [place] [address] 09-02-2021 10:18-0400 Respiratory rate 18 /min JAYJAY ALVES MD [address] [place] [address] 09-02-2021 10:18-0400 Systolic blood pressure 122 mm[Hg] JAYJAY ALVES MD [facility] 07-21-2021 00:10-0400 Body temperature 97.52 [degF] DOM OROSCO MD [facility] 07-21-2021 00:10-0400 Diastolic blood pressure 61 mm[Hg] DOM OROSCO MD [facility] 07-21-2021 00:10-0400 Heart rate 82 /min DOM OROSCO MD [facility] 07-21-2021 00:10-0400 Mean blood pressure 84 mm[Hg] DOM OROSCO MD [facility] 07-21-2021 00:10-0400 Respiratory rate 16 /min DOM OROSCO MD [facility] 07-21-2021 00:10-0400 Systolic blood pressure 131 mm[Hg] DOM OROSCO MD [facility] 07-20-2021 15:10-0400 Body temperature 98.24 [degF] DOM OROSCO MD [facility] 07-20-2021 15:10-0400 Diastolic blood pressure 63 mm[Hg] DOM OROSCO MD [facility] 07-20-2021 15:10-0400 Heart rate 81 /min DOM OROSCO MD [facility] 07-20-2021 15:10-0400 Mean blood pressure 79 mm[Hg] DOM OROSCO MD [facility] 07-20-2021 15:10-0400 Respiratory rate 18 /min DOM OROSCO MD [facility] 07-20-2021 15:10-0400 Systolic blood pressure 111 mm[Hg] DOM OROSCO MD [facility] 07-20-2021 07:00-0400 Body temperature 98.6 [degF] DOM OROSCO MD [facility] 07-20-2021 07:00-0400 Diastolic blood pressure 78 mm[Hg] DOM OROSCO MD [facility] 07-20-2021 07:00-0400 Heart rate 58 /min DOM OROSCO MD [facility] 07-20-2021 07:00-0400 Mean blood pressure 92 mm[Hg] DOM OROSCO MD [facility] 07-20-2021 07:00-0400 Systolic blood pressure 119 mm[Hg] DOM OROSCO MD [facility] 07-18-2021 07:40-0400 Body height 157.5 cm DOM OROSCO MD [facility] 07-18-2021 07:40-0400 Body weight 68.2 kg DOM OROSCO MD [facility] 07-18-2021 07:40-0400 Body weight 27.49 kg/m2 DOM OROSCO MD [facility] 07-16-2021 14:15-0400 Body height 157.5 cm GIULIANO SHAFFER MD [facility] 07-16-2021 14:15-0400 Body temperature 97.52 [degF] GIULIANO SHAFFER MD [facility] 07-16-2021 14:15-0400 Body weight 68.2 kg GIULIANO SHAFFER MD [facility] 07-16-2021 14:15-0400 Body weight 27.49 kg/m2 GIULIANO SHAFFER MD [facility] 07-16-2021 14:15-0400 Diastolic blood pressure 79 mm[Hg] GIULIANO SHAFFER MD [facility] 07-16-2021 14:15-0400 Heart rate 106 /min GIULIANO SHAFFER MD [facility] 07-16-2021 14:15-0400 Mean blood pressure 95 mm[Hg] GIULIANO SHAFFER MD [facility] 07-16-2021 14:15-0400 Respiratory rate 20 /min GIULIANO SHAFFER MD [facility] 07-16-2021 14:15-0400 Systolic blood pressure 127 mm[Hg] GIULIANO SHAFFER MD [facility] 07-16-2021 09:55-0400 Body temperature 98.24 [degF] GIULIANO SHAFFER MD [facility] 07-16-2021 09:55-0400 Diastolic blood pressure 74 mm[Hg] GIULIANO SHAFFER MD [facility] 07-16-2021 09:55-0400 Heart rate 87 /min GIULIANO SHAFFER MD [facility] 07-16-2021 09:55-0400 Mean blood pressure 91 mm[Hg] GIULIANO SHAFFER MD [facility] 07-16-2021 09:55-0400 Respiratory rate 18 /min GIULIANO SHAFFER MD [facility] 07-16-2021 09:55-0400 Systolic blood pressure 124 mm[Hg] GIULIANO SHAFFER MD [facility] 07-16-2021 09:53-0400 Body height 157.5 cm GIULIANO SHAFFER MD [facility] 07-16-2021 09:53-0400 Body weight 68.5 kg GIULIANO SHAFFER MD [facility] 07-16-2021 09:53-0400 Body weight 27.61 kg/m2 GIULIANO SHAFFER MD [facility] 07-07-2021 12:02-0400 Body temperature 98.6 [degF] GIFTY WRAY MD [facility] 07-07-2021 12:02-0400 Diastolic blood pressure 73 mm[Hg] GIFTY WRAY MD [facility] 07-07-2021 12:02-0400 Heart rate 77 /min GIFTY WRAY MD [facility] 07-07-2021 12:02-0400 Mean blood pressure 91 mm[Hg] GIFTY WRAY MD [facility] 07-07-2021 12:02-0400 Respiratory rate 18 /min GIFTY WRAY MD [facility] 07-07-2021 12:02-0400 Systolic blood pressure 127 mm[Hg] GIFTY WRAY MD [facility] 07-07-2021 11:57-0400 Body height 157.5 cm GIFTY WRAY MD [facility] 07-07-2021 11:57-0400 Body weight 68 kg GIFTY WRAY MD [facility] 07-07-2021 11:57-0400 Body weight 27.41 kg/m2 GIFTY WRAY MD [facility] 06-22-2021 16:16-0400 Diastolic blood pressure 72 mm[Hg] DR ARAMIS GEORGE MD [facility] 06-22-2021 16:16-0400 Heart rate 70 /min DR ARAMIS GEORGE MD [facility] 06-22-2021 16:16-0400 Respiratory rate 18 /min DR ARAMIS GEORGE MD [facility] 06-22-2021 16:16-0400 Systolic blood pressure 151 mm[Hg] DR ARAMIS GEORGE MD [facility] 06-22-2021 14:43-0400 Body temperature 98.06 [degF] DR ARAMIS GEORGE MD [facility] 06-22-2021 14:43-0400 Body weight 66.[address] ARAMIS GEORGE MD [facility] 06-22-2021 14:43-0400 Diastolic blood pressure 78 mm[Hg] DR ARAMIS GEORGE MD [facility] 06-22-2021 14:43-0400 Heart rate 101 /min DR ARAMIS GEORGE MD [facility] 06-22-2021 14:43-0400 Respiratory rate 18 /min DR ARAMIS GEORGE MD [facility] 06-22-2021 14:43-0400 Systolic blood pressure 119 mm[Hg] DR ARAMIS GEORGE MD [facility] 06-21-2021 21:39-0400 Body height 157.5 cm KAYE VINICIUS DO [facility] 06-21-2021 21:39-0400 Body weight 65.9 kg KAYE VINICIUS DO [facility] 06-21-2021 21:39-0400 Body weight 26.57 kg/m2 KAYE VINICIUS DO [facility] 06-21-2021 21:36-0400 Body temperature 98.42 [degF] KAYE VINICIUS DO [facility] 06-21-2021 21:36-0400 Diastolic blood pressure 72 mm[Hg] KAYE VINICIUS DO [facility] 06-21-2021 21:36-0400 Heart rate 118 /min KAYE VINICIUS DO [facility] 06-21-2021 21:36-0400 Mean blood pressure 87 mm[Hg] KAYE VINICIUS DO [facility] 06-21-2021 21:36-0400 Respiratory rate 18 /min KAYE VINICIUS DO [facility] 06-21-2021 21:36-0400 Systolic blood pressure 116 mm[Hg] KAYE VINICIUS DO [facility] 06-15-2021 15:57-0400 Body temperature 98.06 [degF] JOSÉ MIGUEL ARTHUR MD [facility] 06-15-2021 15:57-0400 Diastolic blood pressure 64 mm[Hg] JOSÉ MIGUEL ARTHUR MD [facility] 06-15-2021 15:57-0400 Heart rate 94 /min JOSÉ MIGUEL ARTHUR MD [facility] 06-15-2021 15:57-0400 Mean blood pressure 81 mm[Hg] JOSÉ MIGUEL ARTHUR MD [facility] 06-15-2021 15:57-0400 Respiratory rate 14 /min JOSÉ MIGUEL ARTHUR MD [facility] 06-15-2021 15:57-0400 Systolic blood pressure 114 mm[Hg] JOSÉ MIGUEL ARTHUR MD [facility] 06-15-2021 15:53-0400 Body height 157.5 cm JOSÉ MIGUEL ARTHUR MD [facility] 06-15-2021 15:53-0400 Body weight 65.9 kg JOSÉ MIGUEL ARTHUR MD [facility] 06-15-2021 15:53-0400 Body weight 26.57 kg/m2 JOSÉ MIGUEL ARTHUR MD [facility] 05-21-2021 08:35-0400 Body temperature 98.24 [degF] KILLIAN GOOD MD [facility] 05-21-2021 08:35-0400 Diastolic blood pressure 59 mm[Hg] KILLIAN GOOD MD [facility] 05-21-2021 08:35-0400 Heart rate 89 /min KILLIAN GOOD MD [facility] 05-21-2021 08:35-0400 Mean blood pressure 77 mm[Hg] KILLIAN GOOD MD [facility] 05-21-2021 08:35-0400 Respiratory rate 18 /min KILLIAN GOOD MD [facility] 05-21-2021 08:35-0400 Systolic blood pressure 113 mm[Hg] KILLIAN GOOD MD [facility] 05-20-2021 23:05-0400 Body height 157.5 cm JOSÉ MIGUEL ARTHUR MD [facility] 05-20-2021 23:05-0400 Body temperature 98.24 [degF] JOSÉ MIGUEL ARTHUR MD [facility] 05-20-2021 23:05-0400 Body weight 63.6 kg JOSÉ MIGUEL ARTHUR MD [facility] 05-20-2021 23:05-0400 Body weight 25.64 kg/m2 JOSÉ MIGUEL ARTHUR MD [facility] 05-20-2021 23:05-0400 Diastolic blood pressure 54 mm[Hg] JOSÉ MIGUEL ARTHUR MD [facility] 05-20-2021 23:05-0400 Heart rate 76 /min JOSÉ MIGUEL ARTHUR MD [facility] 05-20-2021 23:05-0400 Mean blood pressure 68 mm[Hg] JOSÉ MIGUEL ARTHUR MD [facility] 05-20-2021 23:05-0400 Respiratory rate 16 /min JOSÉ MIGUEL ARTHUR MD [facility] 05-20-2021 23:05-0400 Systolic blood pressure 95 mm[Hg] JOSÉ MIGUEL ARTHUR MD [facility] 05-19-2021 11:59-0400 Body temperature 98.42 [degF] JULIANNA MCCLAIN MD [facility] 05-19-2021 11:59-0400 Diastolic blood pressure 69 mm[Hg] JULIANNA MCCLAIN MD [facility] 05-19-2021 11:59-0400 Heart rate 98 /min JULIANNA MCCLAIN MD [facility] 05-19-2021 11:59-0400 Mean blood pressure 77 mm[Hg] JULIANNA MCCLAIN MD [facility] 05-19-2021 11:59-0400 Respiratory rate 18 /min JULIANNA MCCLAIN MD [facility] 05-19-2021 11:59-0400 Systolic blood pressure 94 mm[Hg] JULIANNA MCCLAIN MD [facility] 05-19-2021 11:53-0400 Body height 157.5 cm JULIANNA MCCLAIN MD [facility] 05-19-2021 11:53-0400 Body weight 62 kg JULIANNA MCCLAIN MD [facility] 05-19-2021 11:53-0400 Body weight 24.99 kg/m2 JULIANNA MCCLAIN MD [facility] 05-09-2021 16:38-0400 Diastolic blood pressure 54 mm[Hg] JULIANNA BUCK MD [facility] 05-09-2021 16:38-0400 Heart rate 97 /min JULIANNA BUCK MD [facility] 05-09-2021 16:38-0400 Respiratory rate 16 /min JULIANNA BUCK MD [facility] 05-09-2021 16:38-0400 Systolic blood pressure 106 mm[Hg] JULIANNA BUCK MD [facility] 05-09-2021 15:00-0400 Body temperature 97.88 [degF] JULIANNA BUCK MD [facility] 05-09-2021 15:00-0400 Body weight 63.4 kg JULIANNA BUCK MD [facility] 05-09-2021 15:00-0400 Diastolic blood pressure 65 mm[Hg] JULIANNA BUCK MD [facility] 05-09-2021 15:00-0400 Heart rate 103 /min JULIANNA BUCK MD [facility] 05-09-2021 15:00-0400 Systolic blood pressure 115 mm[Hg] JULIANNA BUCK MD [facility] 05-03-2021 13:25-0400 Respiratory rate 16 /min JOSÉ MIGUEL ARTHUR MD [facility] 05-03-2021 12:09-0400 Body height 157.5 cm JOSÉ MIGUEL ARTHUR MD [facility] 05-03-2021 12:09-0400 Body temperature 98.6 [degF] JOSÉ MIGUEL ARTHUR MD [facility] 05-03-2021 12:09-0400 Body weight 63.2 kg JOSÉ MIGUEL ARTHUR MD [facility] 05-03-2021 12:09-0400 Body weight 25.48 kg/m2 JOSÉ MIGUEL ARTHUR MD [facility] 05-03-2021 12:09-0400 Diastolic blood pressure 63 mm[Hg] JOSÉ MIGUEL ARTHUR MD [facility] 05-03-2021 12:09-0400 Heart rate 92 /min JOSÉ MIGUEL ARTHUR MD [facility] 05-03-2021 12:09-0400 Mean blood pressure 81 mm[Hg] JOSÉ MIGUEL ARTHUR MD [facility] 05-03-2021 12:09-0400 Respiratory rate 16 /min JOSÉ MIGUEL ARTHUR MD [facility] 05-03-2021 12:09-0400 Systolic blood pressure 118 mm[Hg] JOSÉ MIGUEL ARTHUR MD [facility] 04-01-2021 01:17-0500 Body temperature 97.52 [degF] STAR PINEDA MD [facility] 04-01-2021 01:17-0500 Body weight 62.2 kg STAR PINEDA MD [facility] 04-01-2021 01:17-0500 Diastolic blood pressure 66 mm[Hg] STAR PINEDA MD [facility] 04-01-2021 01:17-0500 Heart rate 115 /min STAR PINEDA MD [facility] 04-01-2021 01:17-0500 Respiratory rate 20 /min STAR PINEDA MD [facility] 04-01-2021 01:17-0500 Systolic blood pressure 136 mm[Hg] TSAR PINEDA MD [facility] 03-27-2021 09:00-0500 Diastolic blood pressure 66 mm[Hg] KAYE MORGANKA DO [facility] 03-27-2021 09:00-0500 Heart rate 70 /min KAYE TERESAESKA DO [facility] 03-27-2021 09:00-0500 Mean blood pressure 79 mm[Hg] KAYE DURESKA DO [facility] 03-27-2021 09:00-0500 Systolic blood pressure 105 mm[Hg] KAYE DURESKA DO [facility] 03-27-2021 07:32-0500 Body temperature 98.42 [degF] KAYE DURESKA DO [facility] 03-27-2021 07:32-0500 Diastolic blood pressure 53 mm[Hg] KAYE DURESKA DO [facility] 03-27-2021 07:32-0500 Heart rate 73 /min KAYE DURESKA DO [facility] 03-27-2021 07:32-0500 Respiratory rate 17 /min KAYE DURESKA DO [facility] 03-27-2021 07:32-0500 Systolic blood pressure 91 mm[Hg] KAYE DURESKA DO [facility] 03-27-2021 01:25-0500 Diastolic blood pressure 59 mm[Hg] KAYE DURESKA DO [facility] 03-27-2021 01:25-0500 Heart rate 76 /min KAYE DURESKA DO [facility] 03-27-2021 01:25-0500 Respiratory rate 18 /min KAYE DURESKA DO [facility] 03-27-2021 01:25-0500 Systolic blood pressure 113 mm[Hg] KAYE DURESKA DO [facility] 03-25-2021 21:06-0500 Body temperature 97.88 [degF] KAYE DURESKA DO [facility] 03-25-2021 21:06-0500 Mean blood pressure 86 mm[Hg] KAYE DURESKA DO [facility] 03-25-2021 21:06-0500 Reason For Taking VItal Signs KAYE TERESAESKA DO [facility] 03-25-2021 13:53-0500 Body temperature 98.06 [degF] KAYE DURESKA DO [facility] 03-25-2021 04:47-0500 Reason For Taking VItal Signs KAYE PORTER DO [facility] 03-24-2021 14:10-0500 Reason For Taking VItal Signs KAYE PORTER DO [facility] 03-24-2021 01:34-0500 Heart rate 89 /min KAYE PORTER DO [facility] 03-23-2021 18:38-0500 Heart rate 86 /min KAYE PORTER DO [facility] 03-23-2021 12:30-0500 Heart rate 86 /min KAYE PORTER DO [facility] 03-22-2021 22:01-0500 Mean blood pressure 60 mm[Hg] KAYE PORTER DO [facility] 03-11-2021 20:45-0500 Diastolic blood pressure 58 mm[Hg] PETER SHANE MD [facility] 03-11-2021 20:45-0500 Heart rate 78 /min PETER SHANE MD [facility] 03-11-2021 20:45-0500 Mean blood pressure 79 mm[Hg] PETER SHANE MD [facility] 03-11-2021 20:45-0500 Respiratory rate 15 /min PETER SHANE MD [facility] 03-11-2021 20:45-0500 Systolic blood pressure 120 mm[Hg] PETER SHANE MD [facility] 03-11-2021 20:33-0500 Body height 157.5 cm PETER SHANE MD [facility] 03-11-2021 20:33-0500 Body weight 58.6 kg PETER SHANE MD [facility] 03-11-2021 20:33-0500 Body weight 23.62 kg/m2 PETER SHANE MD [facility] 03-11-2021 20:30-0500 Body temperature 97.7 [degF] PETER SHANE MD [facility] 01-31-2021 10:04-0500 Body temperature 98.78 [degF] MARIA L JAIME PA-C [facility] 01-31-2021 10:04-0500 Body weight 57 kg MARIA L JAIME PA-C [facility] 01-31-2021 10:04-0500 Diastolic blood pressure 67 mm[Hg] MARIA L JAIME PA-C [facility] 01-31-2021 10:04-0500 Heart rate 72 /min MARIA L JAIME PA-C [facility] 01-31-2021 10:04-0500 Respiratory rate 18 /min MARIA L JAIME PA-C [facility] 01-31-2021 10:04-0500 Systolic blood pressure 103 mm[Hg] MARIA L SANDOVAL PA-C [facility] Encounters Encounter Date Encounter Type Care Provider Facility Start: 10-17-2024 End: 10-17-2024 Emergency department patient visit Melissa Eastford Facility:[facility] Start: 10-10-2024 End: 10-10-2024 ambulatory Melissa Eastford Facility:[facility] Start: 09-26-2024 ambulatory Melissa Eastford Facility :[facility] Start: 09-11-2024 Encounter for gynecological examination (general) (routine) without abnormal findings [place] Maria D [facility] Start: 09-11-2024 End: 09-12-2024 ambulatory Melissa Eastford Facility:[facility] Start: 09-10-2024 End: 09-10-2024 ambulatory Melissa Eastford Facility:[facility] Start: 09-10-2024 End: 09-10-2024 ambulatory Melissa Dick Facility:[facility] Start: 08-15-2024 End: 08-15-2024 Emergency department patient visit Melissa Dick Facility:[facility] Start: 08-14-2024 End: 08-14-2024 Emergency department patient visit Alex Blood Facility:[facility] Start: 07-29-2024 End: 07-29-2024 ambulatory Wendy Zamora Facility:[facility] Start: 07-28-2024 End: 07-28-2024 ambulatory Getachew CALDERON Facility:[facility] Start: 07-02-2024 End: 07-02-2024 Emergency department patient visit Melissa Eastford Facility:[facility] Start: 06-03-2024 End: 06-03-2024 ambulatory No Primary Care Physician Facility:[facility] Start: 06-03-2024 End: 06-03-2024 ambulatory Melissa Dick Facility:[facility] Start: 03-18-2024 End: 03-18-2024 Telephone encounter Kaley Carl HEALTH POLICY NURSE.DENTAL OFFICE ASSISTANT Work Phone: [facility] Comment on above: Results Start: 03-17-2024 End: 03-17-2024 ambulatory Facility:[facility] Start: 03-17-2024 End: 03-17-2024 Patient encounter procedure Ra Philip HEALTH POLICY NURSE.DENTAL OFFICE ASSISTANT Work Phone: [facility] Comment on above: Sore throat (Primary Dx); URI, acute Start: 10-24-2023 End: 10-24-2023 ambulatory Facility:[facility] Start: 10-24-2023 End: 10-24-2023 Office outpatient visit 15 minutes Rodrigue Paul HEALTH POLICY NURSE.DENTAL OFFICE ASSISTANT Work Phone: [facility] Comment on above: Acute otitis media, right (Primary Dx) Start: 09-10-2023 End: 09-14-2023 ambulatory ALO LO MD Facility:[facility] Start: 03-16-2023 End: 03-16-2023 ambulatory LAURIE ERVIN CNP Facility:[facility] Start: 03-16-2023 End: 03-16-2023 Patient encounter procedure LAURIE ERVIN DENTAL OFFICE ASSISTANT [facility] Start: 11-20-2022 End: 11-24-2022 ambulatory VADIM HARRIS MD Facility:[facility] Obstetrics Start: 11-20-2022 End: 11-24-2022 ambulatory VADIM HARRIS MD Facility:[facility] Obstetrics Start: 11-16-2022 End: 11-16-2022 Emergency department patient visit [facility] Facility:[facility] Start: 11-14-2022 End: 11-14-2022 Emergency department patient visit JAYJAY ALVES MD [facility] Start: 05-06-2022 End: 05-06-2022 Emergency department patient visit DR ELYSSA BOLDEN MD [facility] Start: 04-16-2022 End: 04-16-2022 ambulatory DENISHA KUMAR Facility:[id number] Start: 04-16-2022 End: 04-16-2022 Patient encounter procedure [facility] Work Phone: [facility] Comment on above: Odontalgia (Primary Dx) Start: 02-24-2022 End: 02-24-2022 Emergency department patient visit DR BAN ALVES MD [facility] Start: 02-13-2022 End: 02-13-2022 Emergency department patient visit DR ARAMIS GEORGE MD [facility] Start: 11-19-2021 End: 11-19-2021 Emergency department patient visit JAMAAL CHADDVickey MASSEY [facility] Start: 2021 End: 2021 Emergency department patient visit DENISHA KUMAR Facility:[id number] Start: 09-11-2021 End: 09-11-2021 Emergency department patient visit JAYJAY ALVES MD [facility] Start: 09-08-2021 End: 09-09-2021 Emergency department patient visit JAYJAY ALVES MD [facility] Start: 09-02-2021 End: 09-02-2021 Emergency department patient visit JAYJAY ALVES MD [facility] Start: 08-18-2021 Admission to establishment [facility] Start: 08-18-2021 ambulatory Mounika BENAVIDEZ [facility] Int[facility] Comment on above: Psychiatric Problem Start: 08-18-2021 End: 08-18-2021 Emergency department patient visit ELYSSA LANCE Facility:[id number] Start: 07-18-2021 End: 07-21-2021 Evaluation and management of inpatient DOM OROSCO MD [facility] Start: 07-16-2021 End: 07-16-2021 SAME DAY STAY GIULIANO SHAFFER MD [facility] Start: 07-16-2021 End: 07-16-2021 SAME DAY STAY GIULIANO SHAFFER MD [facility] Start: 07-07-2021 End: 07-07-2021 SAME DAY STAY GIFTY WRAY MD [facility] Start: 06-22-2021 End: 06-22-2021 Emergency department patient visit DR ARAMIS GEORGE MD [facility] Start: 06-21-2021 End: 06-21-2021 SAME DAY STAY KAYE COLVIN DO [facility] Start: 06-15-2021 End: 06-15-2021 SAME DAY STAY JOSÉ MIGUEL ARTHUR MD [facility] Start: 05-22-2021 End: 05-22-2021 Subsequent hospital visit by physician Hoang Sweeney Work Phone: [facility] Comment on above: REQUESTING TEST Start: 05-21-2021 End: 05-21-2021 SAME DAY STAY KILLIAN GOOD MD [facility] Start: 05-20-2021 End: 05-21-2021 SAME DAY STAY JOSÉ MIGUEL ARTHUR MD [facility] Start: 05-19-2021 End: 05-19-2021 SAME DAY STAY JULIANNA MCCLAIN MD [facility] Start: 05-09-2021 End: 05-09-2021 Emergency department patient visit JULIANNA BUCK MD [facility] Start: 05-03-2021 End: 05-03-2021 SAME DAY STAY JOSÉ MIGUEL ARTHUR MD [facility] Start: 04-01-2021 End: 04-01-2021 Emergency department patient visit STAR PINEDA MD [facility] Start: 03-21-2021 End: 03-27-2021 Emergency department patient visit KAYE PORTER DO [facility] Start: 03-11-2021 End: 03-11-2021 SAME DAY STAY PETER SHANE MD [facility] Start: 02-22-2021 Patient encounter procedure Hoang Sweeney MD Work Phone: [facility] Start: 02-22-2021 Progress Note Hoang Sweeney MD Work Phone: [facility] Start: 01-31-2021 End: 01-31-2021 Emergency department patient visit MARIA L SANDOVAL PA-C [facility] Start: 11-22-2020 Patient encounter procedure Hoang Sweeney MD Work Phone: [facility] Start: 11-22-2020 Progress Note Hoang Sweeney MD Work Phone: [facility] Start: 09-27-2020 Patient encounter procedure Nishi Munoz DO Work Phone: [facility] Start: 09-27-2020 Progress Note Nishi Edmondosmany Hernandezwade hn DO Work Phone: [facility] Start: 06-12-2020 Patient encounter procedure [facility] Provider [facility] Start: 06-12-2020 Progress Note [facility] Provider [facility] Start: 02-18-2020 Patient encounter procedure Hoang Sweeney MD Work Phone: [facility] Start: 02-18-2020 Progress Note Hoang Sweeney MD Work Phone: [facility] Start: 12-05-2019 Patient encounter procedure Hoang Sweneey MD Work Phone: [facility] Start: 12-05-2019 Progress Note Hoang Sweeney MD Work Phone: [facility] Procedures Date Procedure Procedure Detail Performing Clinician Start: 03-17-2024 STREP A MOLECULAR (POC) Ra Cantu APRN.DENTAL OFFICE ASSISTANT Work Phone: Start: 04-25-2016 Adult depression screening assessment Hoang Sweeney Work Phone: Plan of Treatment Date Care Activity Detail Author Start: 05-03-2031 Urine microalbumin profile DTaP,Tdap,Td Vaccine (3 - Td or Tdap) [facility] Start: 10-14-2023 Covid-19 Vaccine ( season) Covid-19 Vaccine ( season) [facility] Start: 10-14-2023 Covid-19 Vaccine ( season) Covid-19 Vaccine ( season) [facility] Start: 10-14-2023 Influenza vaccination Influenza Vacc ine (#1) [facility] Start: 02-12-2022 DEPRESSION ASSESSMENT DEPRESSION ASS ESSMENT [facility] Start: 01-14-2022 COVID-19 VACCINE (2 - Moderna series) COVID-19 VACCINE (2 - Moderna series) [facility] Start: 10-13-2021 [facility]: 10-13-2020 Influenza vaccination INFLUENZA (#1) [facility] Start: 2018 PAP TESTING PAP TESTING [facility] Start: 2018 Screening for malign ant neoplasm of cervix Cervical Cancer Screening [facility] Start: 04-25-2017 Adult depression screening assessment DEPRESSION SCREENING [facility] Start: 2016 Hepatitis B Vaccine (1 of 3 - 19+ 3-dose series) Hepatitis B Vaccine (1 of 3 - 19+ 3-dose series) [facility] Start: 2016 Urine microalbumin profile DTAP,TDAP,TD (1 - Tdap) [facility] Start: 10-03-2015 Anxiety Screening Anxiety Screening [facility] Start: 10-03-2015 CHLAMYDIA SCREENING (18-24) CHLAMYDIA SCREENING (18-24) [facility] Start: 10-03-2015 Depression Screening Depression Scre ening [facility] Start: 10-03-2015 GC (GONORRHEA) SCREE RUSSEL (18-24) GC (GONORRHEA) SCREENING (18-24) [facility] Start: 10-03-2015 HEPATITIS C SCREENING HEPATITIS C [facility] Start: 10-03-2015 Hepatitis C screening Hepatitis C [facility] Start: 10-03-2015 HIV SCREENING HIV SCREENING [facility] Start: 10-03-2015 HIV screening HIV Screening [facility] Start: 2012 HPV Vaccine (1 - 3-d ose series) HPV Vaccine (1 - 3-dose series) [facility] Start: 10-03-2011 PEDS TO ADULT TRANSI TION ANNUAL ASSESSMENT PEDS TO ADULT TRANSITION ANNUAL ASSESSMENT [facility] Start: 2009 PEDS TO ADULT TRANSI TION INITIAL DISCUSSION PEDS TO ADULT TRANSITION INITIAL DISCUSSION [facility] Start: 2008 HPV VACCINE (1 - 2-d ose series) HPV VACCINE (1 - 2-dose series) [facility] Start: 10-03-2007 MENINGOCOCCAL B: Consider based on risk (1 of 2 - Risk Bexsero 2-dose series) MENINGOCOCCAL B: Consider based on risk (1 of 2 - Risk Bexsero 2-dose series) [facility] Start: 10-03-2003 PNEUMOCOCCAL (1 - PCV) PNEUMOCOCCAL (1 - PCV) [facility] Start: 2002 COVID-19 VACCINE (#1) COVID-19 VACCI NE (#1) [facility] Start: 2002 COVID-19 VACCINE (1) COVID-19 VACCIN E (1) [facility] Start: 04-04-1998 COVID-19 VACCINE (#1) COVID-19 VACCI NE (#1) [facility] Start: 1997 HEPATITIS B (1 of 3 - 3-dose series) HEPATITIS B (1 of 3 - 3-dose series) [facility] COVID & INFLUENZA A/ B & RSV PCR, ROUTINE COVID & INFLUENZA A/B & RSV PCR, ROUTINE Microbiology Routine URI, acute Ordered: 03/17/2024 [facility] Work Phone: Comment on above: Ordered: 03/17/2024 Immunizations Immunization Date Immunization Notes Care Provider Fa juancarlos 12-17-2021 influenza virus vacc ine, unspecified formulation Rodrigue Paul APRN.DENTAL OFFICE ASSISTANT Work Phone: [facility] 01-24-2021 tetanus toxoid, redu warren diphtheria toxoid, and acellular pertussis vaccine, adsorbed MARIA L SANDOVAL PA-C [facility] 03-05-2015 meningococcal polysaccharide (groups A, C, Y and W-135) diphtheria toxoid conjugate vaccine (MCV4P) KAYE PORTER DO [facility] 12-09-2013 influenza virus vacc ine, unspecified formulation KAYE PORTER DO [facility] 11-06-2012 influenza virus vacc ine, unspecified formulation KAYE PORTER DO [facility] 12-13-2011 influenza virus vacc ine, unspecified formulation KAYE PORTER DO [facility] Payers Date Payer Category Payer Medicare MMO MEDICARE MMO MEDADVANTAGE O [id number] 2024-Present [phone] [address] [place] [address] O [id number] 2024 Medicaid [id number] 2024 Unknown [id number] 2024 Self-pay 2022 Medicaid [id number] 2022 Medicaid [id number] 2020 Medicaid [employer] MED[employer] ID [employer] MEDICAID [id number] 2020-Present [phone] [address] [place] [address] Medicaid [id number] 2020 Medicaid [id number] 2018 Unknown [employer] [id number] 2018-Present [phone] [address] [address] [place] [address] PPO [id number] 1997 Unknown [id number] [id number] 1997 Unknown [id number] 2.840.1.989326.3.579.2.627 1997 Unknown [id number] 2.16840.1.457666.3.579.2.627 1997 Unknown [id number] 2.16840.1.866458.3.579.2.627 1997 Unknown [id number] 2.16840.1.804631.3.579.2.627 1997 Unknown [id number] 2.16.840.1.507555.3.579.2.627 Unknown [id number] 2.16840.1.451424.3.579.2.462 Unknown [id number] 2.16.840.1.974012.3.579.2.462 Unknown [id number] 2.16.840.1.375561.3.579.2.462 Unknown [id number] 2.16.840.1.994347.3.579.2.462 Unknown [id number] 2.16.840.1.674017.3.579.2.462 Unknown [id number] 2.16.840.1.903444.3.579.2.462 Unknown [id number] 2.16.840.1.049849.3.579.2.462 Unknown [id number] 2.16.840.1.318180.3.579.2.462 Unknown [id number] 2.16.840.1.416473.3.579.2.462 Unknown [id number] 2.16.840.1.740709.3.579.2.462 Unknown [id number] 2.16.840.1.723697.3.579.2.462 Unknown [id number] 2.16.840.1.226675.3.579.2.462 Unknown [id number] 2.16.840.1.426191.3.579.2.462 Unknown [id number] 2.16.840.1.086765.3.579.2.462 Social History Date Type Detail Facility Start: 01-01-2021 Never smoked t obacco (finding) [facility] Sex Assigned At [facility] Start: 04-25-2016 End: 02-11-2018 Tobacco smoking status TXIS Smokes tobacco daily [facility] History of tobacco use Cigarette Smoker [facility] Start: 04-25-2016 End: 04-16-2022 Cigarettes smoked current (pack per day) - Reported 0.25 [facility] Start: 04-25-2016 End: 10-24-2023 Tobacco use and exposure Smokeless tobacco non-user [facility] Start: 04-05-2018 End: 10-24-2023 Alcohol intake Current non-drinker of alcohol (finding) [facility] Start: 1997 Sex Assigned At Not on file [facility] Start: 08-08-2021 End: 08-18-2021 Exposure to SARS-CoV-2 (event) Not sure [facility] Start: 10-27-2021 End: 10-24-2023 Tobacco smoking status Ex-smoker (finding) [facility] History of tobacco use Current smoker [facility] Start: 04-16-2022 End: 10-24-2023 Tobacco use panel [facility] Adult Depression Screening Assessment 0 [facility] Functional Status Date Assessment Result Facility 11-14-2022 Functional Status Standard Safet y ID band on, Call device within reach, Bed in low position, Wheels locked, Phone within reach, personal items within reach, Assistive devices within reach, Safety level maintained, Hazards removed from floor [facility] 05-06-2022 Functional Status ID band on, Safety level maintained [facility] 02-24-2022 Functional Status ID band on, Call device within reach, Bed in low position, Wheels locked, Phone within reach, personal items within reach, Assistive devices within reach, Safety level maintained, Hazards removed from floor [facility] 11-19-2021 Functional Status Standard Safet y ID band on, Call device within reach, Bed in low position, Wheels locked, Upper/Half-Length side-rails up, Bedside Cart Locked, Safety level maintained [facility] 07-21-2021 Functional Status Rooming in [facility] 07-21-2021 Functional Status [facility] spital 07-21-2021 Functional Status [facility] spital 07-21-2021 [facility] 07-21-2021 [facility] 07-20-2021 Functional Status [facility] spital 07-19-2021 Functional Status [facility] 07-18-2021 Functional Status Living Situati on Home independently [facility] 07-18-2021 Functional Status [facility] 07-16-2021 Functional Status Independent [facility] 06-22-2021 Functional Status [facility] 06-22-2021 Functional Status [facility] 06-21-2021 Functional Status [facility] 05-21-2021 Functional Status [facility] 05-20-2021 Functional Status [facility] Mental Status Date Assessment Result Facility 11-14-2022 Mental Status Orientation Oriented x 4 [facility] 05-06-2022 Mental Status Oriented x 4 [facility] 02-24-2022 Mental Status Oriented x 4 [facility] 02-13-2022 Mental Status Oriented x 4 [facility] 11-19-2021 Mental Status Orientation Oriented x 4 [facility] 11-19-2021 Mental Status [facility] 07-21-2021 Mental Status Orientation Oriented x 4 [facility] 07-16-2021 Mental Status Orientation Oriented x 4 [facility] 07-16-2021 Mental Status Orientation Oriented x 4 [facility] 06-22-2021 [facility] Status [facility] Clinical Notes 12-05-2019 to 03-18-2024 Telephone Encounter - Ofe Frye LPN - 03/18/2024 7:47 AM ESTTelephone Encounter - Ofe Frye LPN - 03/18/2024 7:47 AM Ra Aguilar APRN.DEJUAN - 03/17/2024 10:21 AM EST Note Date & Type Note Facility 03-18-2024 Telephone encounter Note Formatting of this note might be differe nt from the original. Patient notified.Ofe Frye LPN [facility] 03-18-2024 Miscellaneous Notes Formatting of this note might be differe nt from the original. Patient notified.Ofe Frye LPN Please notify patient she was positive for influenza A. Continue Tamiflu as prescribed * Seek medical care immediately, call 911, go to ER if you have chest pain, difficulty breathing, shortness of breath, inability to swallow. documented in this encounter [facility] 03-18-2024 Telephone encounter Note Formatting of this note might be differe nt from the original. Please notify patient she was positive for influenza A. Continue Tamiflu as prescribed * Seek medical care immediately, call 911, go to ER if you have chest pain, difficulty breathing, shortness of breath, inability to swallow. [facility] Work Phone: 03-17-2024 Note HNO ID: [id number] Author: RA CANTU APRN.CNP Service: ? Author Type: Nurse Practitioner Type: [...] Patient agreeable to treatment plan. Ra Cantu APRN.[facility] 03-17-2024 History of Present illness Narrative Formatting [...] Patient agreeable to treatment plan. Ra Cantu APRN.DENTAL OFFICE ASSISTANT documented in this encounter [facility] 10-24-2023 Note HNO ID: [id number] Author: RODRIGUE PAUL APRN.DENTAL OFFICE ASSISTANT Service: ? Author Type: Nurse Practitioner Type: Progress Notes Filed: 10/24/2023 09:37 Note Text: Patient presents with: Ear Infection: RIGHT ear x 3 weeks SUBJECTIVE: Ronna Aguayo is a 28 year old year old female who presents for the past 3 weeks with symptoms that are:gradually worsening. Treated for AOM 10 days ago at in [place] - amoxicillin x 7d She reports her [...] date: Depression No date: Generalized anxiety disorder 10/24/23921 BP: 112/64 Pulse: 96 Resp: 16 Temp: [...] if symptoms persist or worsen. Rodrigue Paul, DAISY.[facility] 10-24-2023 History of Present illness Narrative Formatting of this note is different fro m the original. Patient presents with: Ear Infection: RIGHT ear x 3 weeks SUBJECTIVE: Ronna Aguayo is a 28 year old year old female who presents for the past 3 weeks with symptoms that are:gradually worsening. Treated for AOM 10 days ago at in [place] - amoxicillin x 7d She reports her [...] if symptoms persist or worsen. Rodrigue Paul APRN.CNP documented in this encounter [facility] 10-24-2023 Instructions Rodrigue Paul APRN.CNP - 10/24/2023 [...] even if the symptoms go away. 2. Iord-pbi-peggyik pain medication may be taken or other [...] the medicine prescribed. documented in this encounter [facility] 11-21-2022 Note . MICRO - Microbiology PROCEDURE: [...] Locations *1: This test was performed at: [facility], [address] [place] [address], [id number] , [facility] [place] 11-14-2022 Hospital Discharge instructions Patient Education 11/14/2022 [...] spread to other parts of the body. [phone] [employer] [address] [place] [address]. All rights reserved. This information is not intended as a substitute for professional medical care. Always follow your healthcare professional's instructions. Follow Up Care 11/14/2022 09:31:44 With:[facility] Address: [address] [place] [address]- When:3-7 days [facility] 11-14-2022 Emergency department Discharge summary Discharge Instructions Thank you for allowing [facility] to assist you with your healthcare needs. The following is important discharge information regarding your hospital visit. Diagnosis from Today's Visit Chest pain with deep breathing Ovarian cyst rupture UTI (urinary tract infection) What to Do Next Instructions from Your Care Team No qualifying data available. Post Acute Orders No qualifying data available. You Need to Schedule the Following Appointments Follow Up with [facility] CL[facility] When Within 3-7 days Where: [address] [place] [address]- Allergies NKA Medications Please ask your primary [...] spread to other parts of the body. [phone] [employer]. [address] [place] [address]. All rights reserved. This information is not intended as a substitute for professional medical care. Always follow your healthcare professional's instructions. Additional Information VACCINATE! IT SAVES LIVES! Members of the community who have not yet received the COVID-19 vaccine and would like to receive it can visit one of [facility] vaccine clinics. There are many vaccine clinic locations within the [facility]. For locations and available times, please visit [email or web address]/. It is important to note that some COVID mobile vaccine clinics are held outdoors and may be canceled in rainy or stormy conditions. To learn more about pediatric vaccinations (ages 5-11), we invite you to visit the [facility] webpage. https://www.[facility].org/pages/2019-Novel- Iydphwvyrvu-Ldkxkaqdhu-Imzru-Questions.html To learn more about the COVID-19 vaccine, we invite you to visit the CDC website for a list of frequently asked questions. https://www.cdc.gov/coronavirus/2019-ncov/vaccin es/faq.html [facility] Patient Portal Access Instructions: Stay connected with your healthcare team and access your personal medical information anytime with the [facility] [employer] Patient Portal. If you would like a full copy of your medical records please contact the [facility] Medical Records Department Sunday through Sunday between 8a.m. and 4:30p.m. Please follow the directions below to access the portal: 1.Access the email account you provided upon registration to [facility].2.Look for an invitation email from [facility].3.Open the email and access the invitation link: Accept Invitation to [facility] [employer]4.Fill in the required adame to create your account. Sign into [email or web address] with your username and password that you [...] you will allow to register on the [facility] [employer] Patient Portal for access to your information. You can also access the [facility] [employer] Patient Portal on the Innohat. Simply click on Health Records under Health Data and then click on the ShowUhow logo. HOW TO SAFELY DISPOSE OF PRESCRIPTION [...] Call your local pharmacy or go to http://bit.Voltaire/2F8Yw2g to find one close to you.3.Make use of household items: Use cat litter or old coffee grounds to dispose medications if other options are not available. Mix your drugs with these household products, seal them in an airtight container and throw it into the garbage. Call [facility]: [phone] to be sure your drugs can be [...] aware that I should contact my doctor. Patient/Collector Of Internal Revenue Signature: Date/Time: Relationship to Patient: Witness Name/Signature: Date/Time: [facility] 11-14-2022 Note ORIGINAL EXAMINATION: CT OF THE [...] 11/14/2022 4:41:55 PM Ordering Provider: MARK KUMAR [facility] 11-14-2022 Note SINUS RHYTHM Electronic Signature: JAYJAY ALVES MD 11/14/2022 10:32:16 [facility] 05-06-2022 Hospital Discharge instructions Patient Education 05/06/2022 [...] medicine for you. Or you may use awcx-xvd-mdrneud pain relievers, such as acetaminophen or ibuprofen. [...] future, keep your teeth clean and healthy. Kopperl twice a day and floss at least once daily. See your dentist for regular tooth cleanings. And stay away from sugary foods and drinks that can lead to tooth decay. [phone] [employer]. [address] [place] [address]. All rights reserved. This information is not intended as a substitute for professional medical care. Always follow your healthcare professional's instructions. Follow Up Care 05/06/2022 20:16:29 With:your dentist Address: When:2-4 days With:EDVIN, [facility] Address: [address] [place] [phone] When:2-4 days [facility] 05-06-2022 Emergency department Discharge summary Discharge Instructions Thank you for allowing [facility] to assist you with your healthcare needs. [...] days Where: Follow Up with [facility] When Within 2-4 days Where: [address] [place] [phone] [phone] Allergies NKA Medications Please ask your primary [...] medicine for you. Or you may use bwyt-egm-kyqvlvm pain relievers, such as acetaminophen or ibuprofen. [...] future, keep your teeth clean and healthy. Kopperl twice a day and floss at least once daily. See your dentist for regular tooth cleanings. And stay away from sugary foods and drinks that can lead to tooth decay. [phone] [employer]. [address] [place] [address], [place] [address]. All rights reserved. This information is not intended as a substitute for professional medical care. Always follow your healthcare professional's instructions. Additional Information VACCINATE! IT SAVES LIVES! Members of the community who have not yet received the COVID-19 vaccine and would like to receive it can visit one of [facility] vaccine clinics. There are many vaccine clinic locations within the [facility]. For locations and available times, please visit www.[email or web address]/. It is important to note that some COVID mobile vaccine clinics are held outdoors and may be canceled in rainy or stormy conditions. To learn more about pediatric vaccinations (ages 5-11), we invite you to visit the [facility] webpage. https://www.[facility].org/pages/2019-Novel- Lxjxctlzjjp-Okgdflvvpx-Cxyic-Questions.html To learn more about the COVID-19 vaccine, we invite you to visit the CDC website for a list of frequently asked questions. https://www.cdc.gov/coronavirus/2019-ncov/vaccin es/faq.html [facility] [employer] Patient Portal Access Instructions: Stay connected with your healthcare team and access your personal medical information anytime with the [facility] Patient Portal. If you would like a full copy of your medical records please contact the [facility] Medical Records Department Sunday through Sunday between 8a.m. and 4:30p.m. Please follow the directions below to access the portal: 1.Access the email account you provided upon registration to the hospital.2.Look for an invitation email from [facility].3.Open the email and access the invitation link: Accept Invitation to [facility]4.Fill in the required adame to create your account. Sign into [email or web address] with your username and password that you [...] you will allow to register on the [facility] Patient Portal for access to your information. You can also access the [facility] Patient Portal on the [employer] cinthya. Simply click on Health Records under Health Data and then click on the ShowUhow logo. HOW TO SAFELY DISPOSE OF PRESCRIPTION [...] Call your local pharmacy or go to http://TermSync.Voltaire/8L0Zr3u to find one close to you.3.Make use of household items: Use cat litter or old coffee grounds to dispose medications if other options are not available. Mix your drugs with these household products, seal them in an airtight container and throw it into the garbage. Call [facility]: [phone] to be sure your drugs can be [...] aware that I should contact my doctor. Patient/Collector Of Internal Revenue Signature: Date/Time: Relationship to Patient: Witness Name/Signature: Date/Time: [facility] 04-16-2022 Note HNO ID: [id number] Author: Nishi Munoz, DO Service: ? Author [...] here. She also missed her shift at [employer] because the heat and [employer] was making her teeth hurt worse so she wants a slip to be off today and tomorrow from [employer]. And she was given that. Patient will [...] - MELOXICAM 15 MG TABLET Nishi Munoz [facility] 04-16-2022 Miscellaneous Notes Addended by: NISHI MUNOZ on: 04/16/2022 12:10 PM Modules accepted: Orders documented in this encounter [facility] 04-16-2022 History of Present illness Narrative Formatting [...] here. She also missed her shift at [facility] [employer] because the heat and [employer] was making her teeth hurt worse so she wants a slip to be off today and tomorrow from [facility]. And she was given that. Patient will [...] TABLET Nishi Munoz documented in this encounter [facility] 02-24-2022 Hospital Discharge instructions Patient Education 02/24/2022 [...] or as directed by your healthcare provider [phone] [employer]. [address] [place] [address]. All rights reserved. This information is not intended as a substitute for professional medical care. Always follow your healthcare professional's instructions. 02/24/2022 14:13:00 Diet, [place] (Adult) [place] Diet Your healthcare provider may recommend a [...] or rye bread, mckenzie or soda crackers, [place] toast, plain rolls, bagels Avoid: Whole-grain bread [...] rizwan, cinnamon, thyme, mace, allspice, paprika Avoid: [place] powder, cloves, pepper, seed spices, garlic, gravy pickles, highly seasoned salad dressings [phone] [employer]. [address] [place] [address]. All rights reserved. This information is not intended as a substitute for professional medical care. Always follow your healthcare professional's instructions. Follow Up Care 02/24/2022 11:01:50 With:[facility]ILY [facility] Address: [address] [place] [phone]- [phone] When:2-4 days [facility] 02-24-2022 Emergency department Discharge summary Discharge Instructions Thank you for allowing [facility] to assist you with your healthcare needs. The following is important discharge information regarding your hospital visit. Diagnosis from Today's Visit Colitis Viral colitis Abdominal pain What to Do Next Instructions from Your Care Team No qualifying data available. Post Acute Orders No qualifying data available. You Need to Schedule the Following Appointments Follow Up with [facility] When Within 2-4 days Where: [address] [place] [phone] Allergies NKA Medications Please ask your primary [...] or as directed by your healthcare provider [phone] [employer] [address] [place] [address]. All rights reserved. This information is not intended as a substitute for professional medical care. Always follow your healthcare professional's instructions. [place] Diet Your healthcare provider may recommend a [...] or rye bread, mckenzie or soda crackers, [place] toast, plain rolls, bagels Avoid: Whole-grain bread [...] rizwan, cinnamon, thyme, mace, allspice, paprika Avoid: [place] powder, cloves, pepper, seed spices, garlic, gravy pickles, highly seasoned salad dressings [phone] [employer]. [address] [place] [address], [place] [address]. All rights reserved. This information is not intended as a substitute for professional medical care. Always follow your healthcare professional's instructions. Additional Information VACCINATE! IT SAVES LIVES! Members of the community who have not yet received the COVID-19 vaccine and would like to receive it can visit one of [facility] vaccine clinics. There are many vaccine clinic locations within the [facility]. For locations and available times, please visit [email or web address]. It is important to note that some COVID mobile vaccine clinics are held outdoors and may be canceled in rainy or stormy conditions. To learn more about pediatric vaccinations (ages 5-11), we invite you to visit the [facility] webpage. https://www.[facility].org/pages/2019-Novel- Uvkkdwwcjju-Krkymunwga-Xrnyr-Questions.html To learn more about the COVID-19 vaccine, we invite you to visit the [facility] website for a list of frequently asked questions. [email or web address] [facility] Patient Portal Access Instructions: Stay connected with your healthcare team and access your personal medical information anytime with the [facility] Patient Portal. If you would like a full copy of your medical records please contact the [facility] Medical Records Department Sunday through Sunday between 8a.m. and 4:30p.m. Please follow the directions below to access the portal: 1.Access the email account you provided upon registration to the hospital.2.Look for an invitation email from [facility].3.Open the email and access the invitation link: Accept Invitation to [facility]4.Fill in the required adame to create your account. Sign into [email or web address] with your username and password that you [...] you will allow to register on the [facility] Patient Portal for access to your information. You can also access the [facility] Patient Portal on the [facility] cinthya. Simply click on Health Records under Health Data and then click on the ShowUhow logo. HOW TO SAFELY DISPOSE OF PRESCRIPTION [...] Call your local pharmacy or go to [email or web address] to find one close to you.3.Make use of household items: Use cat litter or old coffee grounds to dispose medications if other options are not available. Mix your drugs with these household products, seal them in an airtight container and throw it into the garbage. Call [facility]: [phone] to be sure your drugs can be [...] Signatures Patient Education Materials Gastritis (Adult) Diet, [place] (Adult) Medication Leaflets My discharge plan and instructions have been reviewed and explained to me and I,RONNA AGUAYO understand my current condition and have read and understand these discharge instructions. I have received a written copy of the plan/instructions. If I have questions, I am aware that I should contact my doctor. Patient/Collector Of Internal Revenue Signature: Date/Time: Relationship to Patient: Witness Name/Signature: Date/Time: [facility] 02-24-2022 Evaluation + Plan note Diagnostic Tests PendingUrine Culture 02/24/22 [facility] 02-24-2022 Note ORIGINAL HISTORY: No COMPARISON: No [...] Sign Date: 02/24/2022 1:32:37 PM Ordering Provider: [facility] 02-24-2022 Note ORIGINAL HISTORY: No COMPARISON: [...] Sign Date: 02/24/2022 1:32:37 PM Ordering Provider: [facility] 02-13-2022 Hospital Discharge instructions Patient Education 02/13/2022 [...] hand becomes cold, blue, numb or tingly [id number] [employer]. [address] [place] [address]. All rights reserved. This information is not [...] alternate ice and heat. You may use cmqy-cvm-byaqizm pain medicine to control pain, unless another [...] becomes cold, blue, numb, or tingly [employer]. [address] [place] [address]. All rights reserved. This information is not intended as a substitute for professional medical care. Always follow your healthcare professional's instructions. 02/13/2022 11:51:49 Hand and Wrist Exercises: Forearm Prisoner Classification Interviewer and Wrist Exercises: Forearm Roll This exercise [...] position. Repeat times. Do sets a day. [employer]. [address] [place] [address]. All rights reserved. This information is not intended as a substitute for professional medical care. Always follow your healthcare professional's instructions. Follow Up Care 02/13/2022 09:33:08 With:[facility] Address: [address] [place] [phone] Business (1) When:2-4 days With:[facility] Address: [address] [place] [phone] [phone] Business (1) When:2-4 days Comments:Return to ED if symptoms worsen [facility] 02-13-2022 Emergency department Discharge summary Discharge Instructions Thank you for allowing [facility] to assist you with your healthcare needs. The following is important discharge information regarding your hospital visit. Diagnosis from Today's Visit Wrist sprain Wrist pain-swelling What to Do Next Instructions from Your Care Team No qualifying data available. Post Acute Orders No qualifying data available. You Need to Schedule the Following Appointments Follow Up with [facility] When Within 2-4 days Where: [address] [place] [address]. [address] [address] [place] [address] Business (1) Follow Up with [facility] When Within 2-4 days Why: Return to ED if symptoms worsen Where: [address] [place] [address] [phone] Business (1) Allergies NKA Medications Please ask [...] hand becomes cold, blue, numb or tingly [phone] [employer]. [address] [place] [address], [place] [address]. All rights reserved. This information is not [...] alternate ice and heat. You may use fmqj-uyy-dzjzuev pain medicine to control pain, unless another [...] becomes cold, blue, numb, or tingly [employer]. [address] [place] [address]. All rights reserved. This information is not [...] Repeat times. Do sets a day. [employer]. [address] [place] [address]. All rights reserved. This information is not intended as a substitute for professional medical care. Always follow your healthcare professional's instructions. Additional Information VACCINATE! IT SAVES LIVES! Members of the community who have not yet received the COVID-19 vaccine and would like to receive it can visit one of [facility] vaccine clinics. There are many vaccine clinic locations within the [facility]. For locations and available times, please visit [email or web address]. It is important to note that some COVID mobile vaccine clinics are held outdoors and may be canceled in rainy or stormy conditions. To learn more about pediatric vaccinations (ages 5-11), we invite you to visit the [facility] webpage. [email or web address]/pages/[email or web address]- Skimyejoqcd-Rryjulkwxi-[email or web address]-Questions.html To learn more about the COVID-19 vaccine, we invite you to visit the [employer] website for a list of frequently asked questions. [email or web address] [facility] Patient Portal Access Instructions: Stay connected with your healthcare team and access your personal medical information anytime with the [facility] [employer] Patient Portal. If you would like a full copy of your medical records please contact the [facility] Medical Records Department Sunday through Sunday between 8a.m. and 4:30p.m. Please follow the directions below to access the portal: 1.Access the email account you provided upon registration to [facility].2.Look for an invitation email from [facility].3.Open the email and access the invitation link: Accept Invitation to [facility] [employer]4.Fill in the required adame to create your account. Sign into [email or web address] with your username and password that you [...] you will allow to register on the [facility] [employer] Patient Portal for access to your information. You can also access the [facility] [employer] Patient Portal on the Glythera cinthya. Simply click on Health Records under [...] Call your local pharmacy or go to http://bit.Voltaire/3X7Fw8k to find one close to you.3.Make use of household items: Use cat litter or old coffee grounds to dispose medications if other options are not available. Mix your drugs with these household products, seal them in an airtight container and throw it into the garbage. Call [facility]: [phone] to be sure your drugs can be [...] aware that I should contact my doctor. Patient/Collector Of Internal Revenue Signature: Date/Time: Relationship to Patient: Witness Name/Signature: Date/Time: [facility] 02-13-2022 Note ORIGINAL EXAMINATION: THREE XRAY VIEWS [...] Sign Date: 02/13/2022 10:33:45 AM Ordering Provider: [facility] 02-13-2022 Note ORIGINAL EXAMINATION: THREE XRAY VIEWS [...] Sign Date: 02/13/2022 10:33:45 AM Ordering Provider: [facility] 11-19-2021 Hospital Discharge instructions Patient Education 11/19/2021 [...] or water and you are getting dehydrated [phone] [employer]. [address] [place] [address]. All rights reserved. This information is not intended as a substitute for professional medical care. Always follow your healthcare professional's instructions. Follow Up Care 11/19/2021 10:30:34 With:MD TANYA PARISI MD Address: [address] [place] [address] [address] [facility] [address] [phone] When:2-4 days [facility] 11-19-2021 Emergency department Discharge summary Discharge Instructions Thank you for allowing [facility] to assist you with your healthcare needs. The following is important discharge information regarding your hospital visit. Diagnosis from Today's Visit Acute LUQ pain What to Do Next Instructions from Your Care Team No qualifying data available. Post Acute Orders No qualifying data available. You Need to Schedule the Following Appointments Follow Up with MD TANYA PARISI MD When Within 2-4 days Where: [address] [place] [address] B [facility] [address]- [phone] Allergies NKA Medications Please ask your primary [...] or water and you are getting dehydrated [phone] [employer]. [address] [place] [address]. All rights reserved. This information is not intended as a substitute for professional medical care. Always follow your healthcare professional's instructions. Additional Information VACCINATE! IT SAVES LIVES! Members of the community who have not yet received the COVID-19 vaccine and would like to receive it can visit one of [facility] vaccine clinics. There are many vaccine clinic locations within the [facility]. For locations and available times, please visit [email or web address]. It is important to note that some COVID mobile vaccine clinics are held outdoors and may be canceled in rainy or stormy conditions. To learn more about pediatric vaccinations (ages 5-11), we invite you to visit the [facility] webpage. [email or web address]/pages/2019-Novel- Sdisflomstt-Tlbauoabgo-Sgmub-Questions.html To learn more about the COVID-19 vaccine, we invite you to visit the [facility] website for a list of frequently asked questions. [email or web address] /[email or web address] [facility] Patient Portal Access Instructions: Stay connected with your healthcare team and access your personal medical information anytime with the [facility] Patient Portal. If you would like a full copy of your medical records please contact the [facility] Medical Records Department Sunday through Sunday between 8a.m. and 4:30p.m. Please follow the directions below to access the portal: 1.Access the email account you provided upon registration to [facility].2.Look for an invitation email from [facility].3.Open the email and access the invitation link: Accept Invitation to [facility] [employer]4.Fill in the required adame to create your [...] you will allow to register on the [facility] Patient Portal for access to your information. You can also access the [facility] Patient Portal on the Glythera cinthya. Simply click on Health Records under [...] Call your local pharmacy or go to http://bit.Voltaire/1Q0Pp0n to find one close to you.3.Make use of household items: Use cat litter or old coffee grounds to dispose medications if other options are not available. Mix your drugs with these household products, seal them in an airtight container and throw it into the garbage. Call [facility]: [phone] to be sure your drugs can be [...] aware that I should contact my doctor. Patient/Collector Of Internal Revenue Signature: Date/Time: Relationship to Patient: Witness Name/Signature: Date/Time: [facility] 09-08-2021 Note ORIGINAL EXAMINATION: TWO XRAY VIEWS [...] Sign Date: 09/08/2021 9:13:07 PM Ordering Provider: [facility] 09-08-2021 Note ORIGINAL EXAMINATION: TWO XRAY VIEWS [...] Sign Date: 09/08/2021 9:13:07 PM Ordering Provider: [facility] 09-02-2021 Evaluation + Plan note Diagnostic Tests PendingUrine Culture 09/02/21 [facility] 08-18-2021 Miscellaneous Notes BEHAVIORAL HEALTH INTAKE NOTE SERVICE DATE: 08/18/21 SERVICE TIME: 2:59p Nature of the crisis: Sandra slipped from CSU to ED due to manic behavior Presenting Problem: Ronna Aguayo is a 25 year old female brought in to [facility] ED from Outpatient Office by ambulance for psych evaluation. Pt states that she was upset about something her sister said to her over phone (sister was demanding pt's WIC) and they were talking about anger in an emotions class and pt punched a wall at the [facility] ([facility]). Pt's adoptive sister Roma is currently caring for her 1 month old daughter while she is in CSU. 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 Pt started on Abilify when she arrived at [facility]SU on August 10 2021. Pt prescribed meds by Christi VILLA and sees caseworker protective services Enedelia. Pt denies SI/HI. Per Sandra (CSU [...] Current Mental Health Providers: Garry Beth Agency/Organization: [facility] Mental Health Treatment History: Over 90 Days Ago Details of Past Hospitalization: SI Last Hospitalization: 2019 INTERVENTIONS Sources of Information: Patient;Epic;ED Staff;Other: See Comment (crisis staff) Patient Assessed by Intake via: Telephone Coordination of care with: ED GUADALUPE;ED RN;Crisis Providers Interventions: Therapeutic Interventions Therapeutic Interventions: Crisis Assessment Goals/Objectives: Discharge from hospital with referrals/linkage to supportive services/current providers DISPOSITION & PLAN: Patient Assessed by Intake via: Telephone Patient stated goals: Goals: To not be hospitalized/be discharged from ED Coordination of Care with: ED GUADALUPE;ED RN;Crisis Providers Assessment/Impressions: Discharge Plan: Discharge Goals/Objectives: [...] Age or have a Guardian/Healthcare Power of Paper Products Machine Operator?: No Disposition Date: 08/18/21 Disposition Time: 1522 SIGNATURE: REEMA Lazcano PATIENT NAME: Ronna Aguayo DATE: August 18, 2021 TIME: 3:29 PM documented in this encounter [facility] 07-21-2021 Hospital Discharge instructions Patient Education 07/21/2021 [...] you. Follow these instructions at home: Take liil-kgy-vhfdekl and prescription medicines only as told by [...] 2014 Document Revised: 03/07/2019 Document Reviewed: 11/19/2017 [employer] Patient Education 2020 [employer]. 07/21/2021 07:14:21 Hemorrhage Hemorrhage hemorrhage is excessive [...] spinach, red meat, and legumes. Take any ljyq-xiz-ataxilx and prescription medicines only as told by [...] 04/20/2004 Document Revised: 01/11/2018 Document Reviewed: 09/01/2016 [employer] Patient Education 2020 [employer]. 07/21/2021 07:14:19 7- Home Care Instructions After [...] decreases and the color of blood gets charity fundraiser. Bright red and increased flow may reoccur [...] tender for several weeks. Take prescription or yevf-flu-xjpdnar medications for pain with your care givers [...] straining when trying to pass a stool. Reob-kks-agifuvc medications, stool softeners, can be used. Check [...] flu symptoms.) Follow Up Care 07/17/2021 16:19:39 With:HUMAN RESOURCES PROFESSIONAL, CLINIC Address: [address] [place] [address] (Mon-Fri from 8:30am - 5:00pm) [place] [address]- When:09/01/2021 Comments:Follow-up as needed [facility] 07-16-2021 Hospital Discharge instructions Patient Education 07/16/2021 17:05:07 7 - Labor and Delivery Outpatient Instructions (CUSTOM) [facility] HOME-GOING INSTRUCTIONS _X_ [...] crackers, bananas, Jell-O, cooked carrots, applesauce. __x_ [place] diet. Avoid caffeine, chocolate, alcohol, spiced/greasy foods. [...] the nearest Emergency Room for assistance. Form [id number] D: 01/20 Document Released: 01/29/2006 Document Revised: 01/18/2012 Document Reviewed: 01/29/2006 [employer] Patient Information 2012 [employer]. Follow Up Care 07/16/2021 13:09:43 With:RODRIGUE PLATT DO Address: [address] [place] [address] [employer] [place] [address]- [phone] When: Unknown Comments:Follow-up as scheduled [facility] 07-16-2021 Hospital Discharge instructions Patient Education 07/16/2021 10:47:10 7 - Labor and Delivery Outpatient Instructions (CUSTOM) [facility] HOME-GOING INSTRUCTIONS _X_ [...] crackers, bananas, Jell-O, cooked carrots, applesauce. ___ [place] diet. Avoid caffeine, chocolate, alcohol, spiced/greasy foods. [...] the nearest Emergency Room for assistance. Form [id number] D: 01/20 Document Released: 01/29/2006 Document Revised: 01/18/2012 Document Reviewed: 01/29/2006 [employer]Care Patient Information 2012 [employer]Net. Follow Up Care 07/16/2021 09:32:25 With:OB, OB CLINIC Address: [address] [place] [address]- When: Unknown Comments:Follow-up as scheduledinduction of labor scheduled for 07-18-21 [facility] 07-07-2021 Hospital Discharge instructions Patient Education 07/07/2021 12:44:06 7 - Labor and Delivery Outpatient Instructions (CUSTOM) [facility] HOME-GOING INSTRUCTIONS _X_ [...] crackers, bananas, Jell-O, cooked carrots, applesauce. ___ [place] diet. Avoid caffeine, chocolate, alcohol, spiced/greasy foods. [...] the nearest Emergency Room for assistance. Form [id number] D: 01/20 Document Released: 01/29/2006 Document Revised: 01/18/2012 Document Reviewed: 01/29/2006 [employer]Care Patient Information 2012 [employer]Net. Follow Up Care 07/07/2021 11:41:49 With:HUMAN RESOURCES PROFESSIONAL, CLINIC Address: [address] [place] [address] (Mon-Fri from 8:30am - 5:00pm) [place] [address]- When: Unknown Comments:Follow-up as scheduled [facility] 06-22-2021 Hospital Discharge instructions Patient Education 06/22/2021 [...] thin towel or cloth. You may use vpfx-aai-zfiuozy pain medicine (NSAIDS or nonsteroidal anti-inflammatory drugs) [...] or is irritated You re-injure your ankle [phone] [employer]. [address] [place] [address]. All rights reserved. This information is not intended as a substitute for professional medical care. Always follow your healthcare professional's instructions. Follow Up Care 06/22/2021 14:41:21 With:MEDICAL, CLINIC Address: [address] [place], [place] [phone]- When:2-4 days [facility] 06-22-2021 Hospital Discharge instructions Patient Education 06/21/2021 23:01:04 7 - Labor and Delivery Outpatient Instructions (CUSTOM) [facility] HOME-GOING INSTRUCTIONS _X_ [...] crackers, bananas, Jell-O, cooked carrots, applesauce. ___ [place] diet. Avoid caffeine, chocolate, alcohol, spiced/greasy foods. [...] the nearest Emergency Room for assistance. Form [id number] D: 01/20 Document Released: 01/29/2006 Document Revised: 01/18/2012 Document Reviewed: 01/29/2006 ExitCare Patient Information 2012 [employer]Net. Follow Up Care 06/21/2021 21:30:35 With:HUMAN RESOURCES PROFESSIONAL, CLINIC Address: [address] [place] [address] (Mon-Fri from 8:30am - 5:00pm) [facility] [address]- When: Unknown Comments:Follow-up as scheduledFollow-up as scheduled [facility] 06-15-2021 Hospital Discharge instructions Patient Education 06/15/2021 16:37:26 7 - Labor and Delivery Outpatient Instructions (CUSTOM) [facility] HOME-GOING INSTRUCTIONS _X_ [...] the nearest Emergency Room for assistance. Form [id number] D: 01/20 Document Released: 01/29/2006 Document Revised: 01/18/2012 Document Reviewed: 01/29/2006 ExitCare Patient Information 2011 LoopNet. Follow Up Care 06/15/2021 15:10:30 With:HUMAN RESOURCES PROFESSIONAL, CLINIC Address: [address] [place] [address] (Mon-Fri from 8:30am - 5:00pm) [place] [address]- Business (1) When: Unknown Comments:Follow-up as scheduled [facility] 05-21-2021 Evaluation + Plan note Diagnostic Tests PendingUrine Culture 05/21/21 [facility] 05-21-2021 Hospital Discharge instructions Patient Education 05/21/2021 09:31:07 7 - Labor and Delivery Outpatient Instructions(CUSTOM) [facility] HOME-GOING INSTRUCTIONS Keep [...] crackers, bananas, Jell-O, cooked carrots, applesauce. ___ [place] diet. Avoid caffeine, chocolate, alcohol, spiced/greasy foods. [...] the nearest Emergency Room for assistance. Form [id number] D: 01/20 Document Released: 01/29/2006 Document Revised: 01/18/2012 Document Reviewed: 01/29/2006 ExitCare Patient Information 2012 [employer]Net. Follow Up Care 05/21/2021 08:11:26 With:ROMA BAUER DO, DIESEL SCOOP OPERATOR-ONC Address: When: Unknown Comments:Follow-up as scheduled [facility] 05-21-2021 Hospital Discharge instructions Patient Education 05/21/2021 01:45:34 7 - Labor and Delivery Outpatient Instructions (CUSTOM) [facility] HOME-GOING INSTRUCTIONS _X_ [...] crackers, bananas, Jell-O, cooked carrots, applesauce. ___ [place] diet. Avoid caffeine, chocolate, alcohol, spiced/greasy foods. [...] the nearest Emergency Room for assistance. Form [id number] D: 01/20 Document Released: 01/29/2006 Document Revised: 01/18/2012 Document Reviewed: 01/29/2006 [employer] Patient Information 2012 [employer]Net. Follow Up Care 05/20/2021 22:37:09 With:OB, CLINIC Address: When: Unknown Comments:Follow-up as scheduled [facility] 05-19-2021 Hospital Discharge instructions Patient Education 05/19/2021 14:08:24 7 - Labor and Delivery Outpatient Instructions(CUSTOM) [facility] HOME-GOING INSTRUCTIONS _X_ [...] crackers, bananas, Jell-O, cooked carrots, applesauce. ___ [place] diet. Avoid caffeine, chocolate, alcohol, spiced/greasy foods. [...] the nearest Emergency Room for assistance. Form [id number] D: 01/20 Document Released: 01/29/2006 Document Revised: 01/18/2012 Document Reviewed: 01/29/2006 ExitCare Patient Information 2011 [employer]Net. Follow Up Care 05/19/2021 11:42:25 With:HUMAN RESOURCES PROFESSIONAL, CLINIC Address: When: Unknown Comments:Follow-up as scheduled [facility] 05-09-2021 Hospital Discharge instructions Patient Education 05/09/2021 [...] dyes and rinses, soaps, solvents, waxes, fingernail cayman islander, and deodorants Jewelry or watchbands made of [...] skin Yellow-brown crusts on the open blisters [phone] [employer]. [address] [place] [address], [place] [address]. All rights reserved. This information is not intended as a substitute for professional medical care. Always follow your healthcare professional's instructions. Follow Up Care 05/09/2021 14:47:43 With:HUMAN RESOURCES PROFESSIONAL, CLINIC Address: When:2-4 days [facility] 05-03-2021 Hospital Discharge instructions Patient Education 05/03/2021 13:25:32 7 - Labor and Delivery Outpatient Instructions (CUSTOM) [facility] HOME-GOING INSTRUCTIONS _X_ [...] the nearest Emergency Room for assistance. Form [id number] D: 01/20 Document Released: 01/29/2006 Document Revised: 01/18/2012 Document Reviewed: 01/29/2006 [facility] Patient Information [address] [facility]. Follow Up Care 05/03/2021 11:50:34 With:HUMAN RESOURCES PROFESSIONAL, CLINIC Address: [address] [place] [address] (Mon-Fri from 8:30am - 5:00pm) [place] [phone]- Business (1) When: Unknown Comments:Follow-up as scheduled [facility] 04-01-2021 Hospital Discharge instructions Patient Education 04/01/2021 [...] Black, tarry stool Involuntary weight loss Weakness [id number] [employer] [address] [place] [address]. All rights reserved. This information is not intended as a substitute for professional medical care. Always follow your healthcare professional's instructions. Follow Up Care 04/01/2021 01:15:58 With:Follow up with primary care provider Address:Unknown When:2-4 days With:MEDICAL, CLINIC Address: [facility] [place] [address]- When:2-4 days [facility] 03-27-2021 Hospital Discharge instructions Patient Education 03/27/2021 [...] can see your family provider, a specialist (belt repairer), or a primary care clinic. When to [...] gain Fever Vision changes or blurred vision 4523-1019 [employer] [address] [place] [address]. All rights reserved. This information is not intended as a substitute for professional medical care. Always follow your healthcare professional's instructions. Follow Up Care 03/21/2021 10:44:13 With:[facility] Address: [address] [place] [phone]- Business (1) When:2-4 days With:[facility] ([facility]) Address: [facility] [place] [address]- [phone] Business (1) When:2-4 days With:[facility] Address: [address] [place] [phone] Business (1) When:2-4 days With:[facility] Address: [address] [place] [phone]- Business (1) When:2-4 days With:MEDICAL, CLINIC Address: [address] [place] [address]- When:2-4 days [facility] 03-12-2021 Hospital Discharge instructions Patient Education 03/11/2021 22:27:44 7 - Labor and Delivery Outpatient Instructions [facility] HOME-GOING INSTRUCTIONS _X_ [...] crackers, bananas, Jell-O, cooked carrots, applesauce. ___ [place] diet. Avoid caffeine, chocolate, alcohol, spiced/greasy foods. [...] the nearest Emergency Room for assistance. Form 094606 D: 01/20 Document Released: 01/29/2006 Document Revised: 01/18/2012 Document Reviewed: 01/29/2006 [employer] Patient Information 2011 [employer]. Follow Up Care 03/11/2021 20:28:39 With:HUMAN RESOURCES PROFESSIONAL, CLINIC Address: [address] [place] [address] (Mon-Fri from 8:30am - 5:00pm) [facility] [address]- Business (1) When: Unknown Comments:Follow-up as scheduled [facility] 03-11-2021 Evaluation + Plan note Diagnostic Tests PendingUrine Culture 03/11/21Chlamydia trachomatis PCR 03/11/21N. gonorrhoeae PCR 03/11/21 [facility] 02-22-2021 History of Present illness Narrative DATE [...] She understands and agrees. Hoang Sweeney MD PP/[id number] [facility] File#: [id number] END OF DOCUMENT / CHANGE LOG FOLLOWS Last Edited By [employer]. Signed By Hoang Sweeney MD #PAWPR Hoang Sweeney MD #PAWPR on 02/24/2021 13:40 ET on 02/24/2021 13:40 ET Revision Number - 2 ^^^ Verified/Reviewed by 02/24/[address] [facility] PATIENT NAME: RONNA AGUAYO [address] [facility] [address] MEDICAL REC #: [id number] [place] [address] [facility] REPORT STATCARE PHYSICIAN documented in this encounter [facility] 01-31-2021 Hospital Discharge instructions Patient Education 01/31/2021 12:23:35 COVID-19 Prevent the Spread of COVID-19 If You Are Sick (07/01/2019)(CUSTOM) Prevent the Spread of COVID-19 If You Are Sick Accessible version: https://www.cdc.gov/coronavirus/2019-ncov/if-you -are-sick/wmtye-pcsf-paoz.html If you are sick with COVID-19 or [...] if you have questions about pets: https://www.cdc.gov/coronavirus/2019ncov/faq.htm l#INFNF70enxahzi Monitor your symptoms. Common symptoms of COVID-19 [...] and need to call 911, notify the char filter operator that you have or think you [...] clean your hands with an alcohol-based hand terminal computer operator that contains at least 60% alcohol. Clean your hands often. Wash your hands often with soap and water for at least 20 seconds. This is especially important after blowing your nose, coughing, or sneezing; going to the bathroom; and before eating or preparing food. Use hand terminal computer operator if soap and water are not available. Use an alcohol-based hand terminal computer operator with at least 60% alcohol, covering all [...] and water or put them in the imaging clerk. Clean all high-touch surfaces everyday. Clean and [...] or body fluids on them. Use household pastoral ministries professor and disinfectants. Clean the area or item [...] loosen secretions in the nose and lungs. Lycc-uln-lejmzvy cold medicines will not shorten the length of time you re sick, but they may be helpful for the following symptoms: cough, sore throat, and nasal and sinus congestion. If you take prescription medicines, ask your healthcare provider or pharmacist which mumd-gwd-wpqfaio medicines are safe to use. (Note: Don't [...] it goes along with a muffled voice [phone] [employer]. [address] [place] [address]. All rights reserved. This information is not intended as a substitute for professional medical care. Always follow your healthcare professional's instructions. Follow Up Care 01/31/2021 09:55:05 With:DILIPLUIS EDUARDO [facility] Address: [phone] When:2-4 days [facility] 01-31-2021 HCoV 229E RNA AMY+non-probe Ql (Nph) [...] go to the hospital. Regarding seeing an HUMAN RESOURCES PROFESSIONAL, the patient stated that she knows [address] place in [place] but she will go and try to get established with that OB. Regarding the eczema, I told her about dncj-wve-rqunyet cortisone cream. I explained to her that I do not want to prescriber any strong cream, but sgnm-hmq-bxjjcyn hydrocortisone cream should really help. I prescribed her vitamin 1 tablet daily, 30 tablets, with no refill and instructed her to see OB as soon as possible. The patient understands and agrees. Her questions were answered to her satisfaction. Hoang Sweeney MD PP/[id number] [facility] File#: [id number] END OF DOCUMENT / CHANGE LOG FOLLOWS Last Edited By Elec. Signed By Hoang Sweeney MD #PAWPR Hoang Sweeney MD #PAWPR on 11/29/2020 18:00 ET on 11/29/2020 18:00 ET Revision Number - 2 ^^^ Verified/Reviewed by 11/29/[address] [facility] PATIENT NAME: RONNA AGUAYO [address] [facility] [address] [facility] MEDICAL REC #: [id number] [place] [address] [facility] REPORT STATCARE PHYSICIAN documented in this encounter [facility] 09-27-2020 History of Present illness Narrative DATE [...] perhaps she needed to get into a clinical study manager or just follow up with her [...] was already off today. Nishi Munoz DO /[id number] [facility] File#: [id number] END OF DOCUMENT / CHANGE LOG FOLLOWS Last Edited By [employer]c. Signed By Nishi Munoz Lisa D DO #VAULI on 10/01/2020 08:50 ET on 10/01/2020 08:50 ET Revision Number - 2 ^^^ Verified/Reviewed by 10/01/[address] [facility] PATIENT NAME: RONNA AGUAYO [address] [facility] [address] [facility] MEDICAL REC #: [id number] [place] [address] [facility] REPORT STATCARE PHYSICIAN documented in this encounter [facility] 06-12-2020 History of Present illness Narrative DATE [...] agreeable. Stable on discharge. All questions answered. FILIBERTO Vega/[id number] [facility] File#: [id number] END OF DOCUMENT / CHANGE LOG FOLLOWS Last Edited By Elec. Signed By Micaela Guy PAC #WASMicaela Plaza PAC #WASTH on 06/14/2020 13:38 ET on 06/14/2020 13:38 ET Revision Number - 2 ^^^ Verified/Reviewed by 06/14/[address] [facility] PATIENT NAME: RONNA AGUAYO [address] [facility] [address] [facility] MEDICAL REC #: [id number] [place] [address] [facility] REPORT STATCARE PHYSICIAN documented in this encounter [facility] 02-18-2020 History of Present illness Narrative DATE [...] Patient understands and agrees. Hoang Sweeney MD PP/[id number] [facility] File#: [id number] END OF DOCUMENT / CHANGE LOG FOLLOWS Last Edited By Elec. Signed By Hoang Sweeney MD #PAWPR Hoang Sweeney MD #PAWPR on 02/18/2020 19:09 ET on 02/18/2020 19:09 ET Revision Number - 2 ^^^ Verified/Reviewed by 02/18/[address] [facility] PATIENT NAME: RONNA AGUAYO [address] [facility] [address] [facility] MEDICAL REC #: [id number] [place] [address] [facility] REPORT STATCARE PHYSICIAN documented in this encounter [facility] 12-05-2019 History of Present illness Narrative DATE [...] patient understands and agrees. Hoang Sweeney MD /[id number] [facility] File#: [id number] END OF DOCUMENT / CHANGE LOG FOLLOWS Last Edited By Elec. Signed By Hoang Sweeney MD #PAWPR Hoang Sweeney MD #PAWPR on 12/05/2019 17:35 ET on 12/05/2019 17:35 ET Revision Number - 2 ^^^ Verified/Reviewed by 12/05/[address] [facility] PATIENT NAME: RONNA AGUAYO [address] [facility] [address] [facility] MEDICAL REC #: [id number] [place] [id number] [facility] REPORT STATCARE PHYSICIAN documented in this encounter [facility] Evaluation + Plan note No data available for this section [facility] Evaluation note Diagnosis Odontalgia- Primary Unspecified disorder of the teeth and supporting structures [facility] Acute otitis media, right- Primary Unspecified otitis media [facility] Sore throat- Primary Acute pharyngitis URI, acute Acute upper respiratory infections of unspecified site [facility] No data available for this section [facility] Progress note No data available for this section [facility] Summary Purpose Family History No Family History Records FoundNo Family History Records Found No data available for this section No data available for this section No Family History Records FoundNo Family History Records FoundNo Family History Records Found Advance Directives No Advanced Directives Records FoundDocuments on File Type Date Recorded Patient Collector Of Internal Revenue Expl anation Advance Directive(s) 08/18/2021 12:53 PM Health Concerns Infection Onset Date Last Indicated Resolved Time COVID-19 Rule-Out 08/18/2021 08/18/2021 08/18/2021 2:42 PM EDT Additional Source Comments Care Team (unrecognized sect ion and content) Psychiatric Lpn Relationship Specialty Start Date End Date Elyssa Lance [address] [place] [address] PCP - General Family Practice 12/14/16 Psychiatric Lpn Relationship Specialty Start Date End Date Elyssa Lance [address] [place] [address] PCP - General Family Practice 12/14/16 Source Comments (unrecognize d section and content) In the event this informatio n is protected by the Federal Confidentiality of Alcohol and Drug Abuse Patient Records regulations: The Federal rules restrict any use of the information to criminally investigate or prosecute any alcohol or drug abuse patient.[facility] the event this information is protected by the Federal Confidentiality of Alcohol and Drug Abuse Patient Records regulations: The Federal rules restrict any use of the information to criminally investigate or prosecute any alcohol or drug abuse patient.[facility] the event this information is protected by the Federal Confidentiality of Alcohol and Drug Abuse Patient Records regulations: The Federal rules restrict any use of the information to criminally investigate or prosecute any alcohol or drug abuse patient.[facility] the event this information is protected by the Federal Confidentiality of Alcohol and Drug Abuse Patient Records regulations: The Federal rules restrict any use of the information to criminally investigate or prosecute any alcohol or drug abuse patient.[facility] the event this information is protected by the Federal Confidentiality of Alcohol and Drug Abuse Patient Records regulations: The Federal rules restrict any use of the information to criminally investigate or prosecute any alcohol or drug abuse patient.[facility] the event this information is protected by the Federal Confidentiality of Alcohol and Drug Abuse Patient Records regulations: The Federal rules restrict any use of the information to criminally investigate or prosecute any alcohol or drug abuse patient.[facility] the event this information is protected by the Federal Confidentiality of Alcohol and Drug Abuse Patient Records regulations: The Federal rules restrict any use of the information to criminally investigate or prosecute any alcohol or drug abuse patient.[facility] the event this information is protected by the Federal Confidentiality of Alcohol and Drug Abuse Patient Records regulations: The Federal rules restrict any use of the information to criminally investigate or prosecute any alcohol or drug abuse patient.[facility] the event this information is protected by the Federal Confidentiality of Alcohol and Drug Abuse Patient Records regulations: The Federal rules restrict any use of the information to criminally investigate or prosecute any alcohol or drug abuse patient.[facility] the event this information is protected by the Federal Confidentiality of Alcohol and Drug Abuse Patient Records regulations: The Federal rules restrict any use of the information to criminally investigate or prosecute any alcohol or drug abuse patient.[facility] the event this information is protected by the Federal Confidentiality of Alcohol and Drug Abuse Patient Records regulations: The Federal rules restrict any use of the information to criminally investigate or prosecute any alcohol or drug abuse patient.[facility] the event this information is protected by the Federal Confidentiality of Alcohol and Drug Abuse Patient Records regulations: The Federal rules restrict any use of the information to criminally investigate or prosecute any alcohol or drug abuse patient.[facility] INFORMATION SOURCE (unrecogn ized section and content) DATE CREATED AUTHOR 05/26/2021 [facility] [place] DATE CREATED AUTHOR AUTHOR'S ORGANIZ ATION 04/18/2022 [facility] DATE CREATED AUTHOR AUTHOR'S ORGANIZ ATION 09/15/2023 [facility] ([place]) DATE CREATED AUTHOR AUTHOR'S ORGANIZ ATION 03/18/2024 [facility] DATE CREATED AUTHOR AUTHOR'S ORGANIZ ATION 10/22/2024 [facility] Reason for Visit (unrecogniz ed section and [...] Care Team Related Persons Name: DECLINED, Name: TANISHA AGUAYO Address: Home [address] Care Team Personnel Name: PHYSICIAN, NONE Position: Physician Member Role: Primary Care Physician Care Team Related Persons Name: DECLINED, Name: TANISHA AGUAYO Address: Home [address] Care Team Personnel Name: PHYSICIAN, NONE Position: Physician Member Role: Primary Care Physician Care Team Related Persons Name: DECLINED, Name: TANISHA AGUAYO Address: Home [address] Care Team Personnel Name: PHYSICIAN, NONE Position: Physician Member Role: Primary Care Physician Care Team Related Persons Name: DECLINED, Name: TANISHA AGUAYO Address: Home [address] Care Team Personnel Name: [facility] Member Role: Primary Care Physician Address: Address: [address] [place] [address] Name: Jackelyn Kaur FIELD INTERVIEWER Position: ED FIELD INTERVIEWER/CLS/MEDIC Member Role: ED FIELD INTERVIEWER Name: MD ARAMIS GEORGE MD Position: ED Physician Member Role: Attending Physician Address: Address: [facility] [address] [place] [address] Name: JAYJAY LAINEZC Position: ED Physician Iron Pellet Tester Member Role: ED PA Address: Address: [address] [facility] Randa [address] Care Team Related Persons Name: DECLINED, Name: TANISHA AGUAYO Address: Home [address] Care Team Personnel Name: [facility] Member Role: Primary Care Physician Address: Address: [address] [place] [address] Name: BAN ALVES MD Position: ED Physician Member Role: Attending Physician Address: Address: [facility] [address] [place] [address] Name: AERLIS LEONG Position: ED Physician Iron Pellet Tester Member Role: ED PA Address: Address: [address] [place] [address] [facility] [address] Name: ANDREA FLYNN DO Position: Resident Member Role: Resident Address: Address: [address] [place] [address] ED Resident [address] Name: KATHLEEN Marti Position: ED RN Member Role: ED RN Care Team Related Persons Name: DECLINED, Name: TANISHA AGUAYO Address: Home [address] [facility] [address] FOR RECORDS PERTAINING TO PATIENTS WHO ARE [...] BE BASED ON THE PRIMARY CLINICAL RECORDS. [facility] [employer] provides no warranty or guarantee of the accuracy or completeness of information in this document.
[2024-10-25 22:12] VITALS: BP 102/88; PULSE 66; RESP 14; TEMP 36.6; O2SAT 99
== END 2024-10-25 22:13 | disposition home or self-care (01) ==
PROVIDERS: Emergency Provider Emergency Medicine; PCP Internal Medicine; Visit Provider Emergency Medicine
DX: R55 Syncope and collapse (principal); R56.9 Unspecified convulsions; F41.1 Generalized anxiety disorder; F17.290 Nicotine dependence, other tobacco product, uncomplicated
CPT/HCPCS: 93005; 99284

== ENCOUNTER 2024-10-26 13:03 | Emergency (ER) | payer MEDICARE, MEDICAID, SELFPAY ==
[2024-10-26 13:03] VITALS: BP 118/76; PULSE 70; RESP 16; TEMP 37.2; O2SAT 99; BMI 23.3
--- NOTE | 2024-10-26 13:16 | EDS_ITS ---
HPI History of Present Illness Chief Complaint: Headache Informant: patient Onset/Context/Timing Onset: Today Context: Gradual Timing: Continuous Quality -Headache: Positive for Sharp and Throbbing Location: Right side of head Worsened by: Nothing Relieved by: Nothing Associated Symptoms/Injury Associated Symptoms: Positive for Nausea, Sore Throat and Photophobia (Mild); Negative for Fever, Vomiting, Sinus Pressure, Numbness, Tingling, Preceding Aura, Visual Changes, Blurred Vision or Visual Loss Narrative Narrative: Patient presents with a headache that began today. Patient was seen here yesterday. Patient states she had a seizure yesterday. Patient states that she fell and hit her head during the seizure. Patient states she hit the right side of her head. Patient did not have a headache yesterday while she was here in the emergency department. Patient states she took Tylenol at home which did not help. Patient denies any visual changes. Patient admits to some nausea but denies any vomiting. Patient denies any paresthesias or weakness. Patient states she does feel dizzy. [facility] Medical History (Updated 10/26/24 @ 16:[address] Fabien Amaya, DO) Anxiety and depression Allergic dermatitis Seizures Migraines Home Medications ?Medication ?Instructions ?Recorded ?Last Taken ?Type propranolol 10 mg tablet 10 mg PO DAILY 07/02/2410/13 History fluoxetine 10 mg capsule 10 mg PO DAILY #90 caps 07/1310/26/24 Rx dupilumab 300 mg/2 mL subcutaneous 300 mg subcut .COMP ABHIJIT 10/10/24 10/20/24 History pen injector (Dupixent) aripiprazole 20 mg tablet 20 mg PO QHS 10/26/24 History bupropion HCl 300 mg 24 hr tablet, 300 mg PO DAILY 10/26/24 History extended release diphenhydramine HCl 25 mg capsule 50 mg PO DAILY PRN a llergic 10/26/24 10/24/24 History (Allergy (diphenhydramine)) reaction Allergy/AdvReac Type Severity Reaction Status Date / Time peanut Allergy Anaphylaxis Verified 10/26/24 13:05 Family History Other Family history unknown Surgical History No pertinent past surgical history Social History adopted: Yes household members: none number of children: 1 current occupational status: 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 sexually active: Yes Smoking Status: Current some day smoker tobacco type: e-cigarettes Electronic Cigarette Use: with nicotine alcohol intake: current alcohol intake frequency: holidays/special occasions only details: holidays substance use type: former substance user Date of last use: 2019 caffeine: Yes Type: carbonated beverages eating out: 1-3 times/week during the past year weight has: increased > 10 lbs what type of physical activity do you participate in: walking frequency: 1-2 times per week duration: 30-45 minutes/day danish/rastafarian: None seatbelt use: always do you feel safe at home: Yes additional social history: Single ROS ROS ED Constitutional Constitutional ED: Denies chills or fever(s) Eyes Eyes: Denies blurry vision or change in vision ENT ENT ED: Denies rhinorrhea or sore throat Cardiovascular Cardiovascular: Denies chest pain or palpitations Respiratory/Chest Respiratory/Chest: Denies cough or dyspnea Gastrointestinal Gastrointestinal: Reports nausea; Denies vomiting Genitourinary Genitourinary ED: Denies dysuria or hematuria Musculoskeletal Musculoskeletal: Denies back pain or neck pain Integumentary Denies abscess or rash Neurologic Neurologic: Reports headache(s); Denies weakness Allergic/Immunologic Allergic/Immunologic ED: Denies mouth swelling or urticaria EXAM Physical Exam Const Vital Signs: 10/26/24 13:03 10/26/24 15:03 10/26/24 16:46 Temperature 99 F 98.3 F Temperature Source Oral Pulse Rate 70 63 63 Respiratory Rate 16 16 16 Blood Pressure 118/76 110/72 110/72 Blood Pressure Mean 90 84 84 Pulse Ox 99 100 100 Oxygen Delivery Method Room Air Room Air Positive well nourished and well developed Constitutional Narrative: BMI is 23.4. General Appearance ED: well developed and NAD HEENT Reports normocephalic atraumatic, tenderness and temporal artery tenderness right Eyes PERRL and EOMs intact bilaterally Neck supple, no meningeal signs and no JVD Resp normal respiratory effort and clear to auscultation bilaterally Cardio regular rate GI non-tender and non-distended Palpation: soft Neuro oriented x3, CN's II-XII intact bilaterally and no sensory deficits noted [place] Coma Scale: document GCS findings Spontaneous Obeys Commands Oriented 15 Sensorium / Orientation: awake and alert Speech: speech normal Motor Exam: strength 5/5 throughout MDM MDM MDM Narrative Medical decision making narrative: Differential diagnosis includes intracranial bleeding, temporal arteritis, migraine headache, tension headache, and closed head injury. CT scan of the brain will be obtained to assess for intracranial bleeding. CBC will be obtained to assess for leukocytosis and anemia. Basic metabolic profile will be obtained to assess for electrolyte abnormality and renal function. Sed rate will be obtained to assess for temporal arteritis. History & Record Review Additional record(s) reviewed:: Prior outpatient record, Prior ED visit and Prior labs Lab Data Attestation: I reviewed the patient's lab results. Lab results narrative: CBC was reviewed and was within normal limits. Basic metabolic profile was reviewed and was within normal limits. Serum hCG was reviewed and was negative. Sed rate was reviewed and was less than 1. Labs: Laboratory Results - last 24 hr 10/26/24 13:55 WBC 6.9 RBC 4.18 L Hgb 13.1 Hct 39.2 MCV 93.8 MCH 31.3 MCHC 33.4 RDW Std Deviation 41.5 RDW Coeff of [place] 12.0 Plt Count 216 MPV 11.1 Immature Gran % (Auto) 0.300 Neut % (Auto) 69.5 Lymph % (Auto) 20.7 Walsh % (Auto) 6.3 Eos % (Auto) 2.9 Baso % (Auto) 0.3 Absolute Neuts (auto) 4.8 Absolute Lymphs (auto) 1.44 Nucleated RBC % 0 ESR < 1 Sodium 140 Potassium 4.3 Chloride 107 Carbon Dioxide 26.2 Anion Gap 7 BUN 13 Creatinine 0.73 Estim Creat Clear Calc 91.55 Est GFR (MDRD) Non-Af 116 BUN/Creatinine Ratio 18.3 Glucose 86 Calcium 9.3 Serum , Qual NEGATIVE Radiography Diagnostic Testing: Clinical Impression(s) from Imaging Studies Brain CT 10/26/24 13:30 IMPRESSION: No acute intracranial abnormality. Reading Location: [facility] CT scan of the brain was obtained. There is no acute intracranial abnormality. This was interpreted by the radiologist and was also independently reviewed by myself. Treatment and Re-Evaluation Narrative: Patient was given IV fluids, Compazine, and Benadryl. Patient was feeling better on reevaluation. Patient was advised of her findings. Patient was instructed to rest in a dark quiet room. Patient was instructed to follow-up with her primary care physician in 5 to 7 days. Patient understood and was agreeable with the plan. All questions were answered. Discharge Plan Triage Chief Complaint: Headache ED Provider: Fabien Amaya Dx/Rx/DC Orders Clinical Impression: Headache, SAMI (generalized anxiety disorder) Instructions: ED Headache Unspecified Prescriptions: No Action fluoxetine 10 mg capsule 10 mg PO DAILY Qty: 90 1RF Dupixent Pen 300 mg/2 mL pen injector 300 mg subcut .COMPLEX Patient Comments: [NO ORIGINAL SIG] Rx Instructions: 300 mg subcutaneously [id number]; propranolol 10 mg tablet 10 mg PO DAILY aripiprazole 20 mg tablet 20 mg PO QHS bupropion HCl 300 mg tablet extended release 24 hr 300 mg PO DAILY diphenhydramine HCl [Allergy (diphenhydramine)] 25 mg capsule 50 mg PO DAILY PRN (Reason: allergic reaction) Primary Care Provider: Melissa Jennings Referrals: Melissa Jennings MD [Primary Care Provider] - 5-7 Days Print Language: Ukrainian Disposition Disposition: Home, Self Care Discharge Date/Time: 10/26/24 16:49
--- NOTE | 2024-10-26 13:30 | CT_ITS ---
PROCEDURE: BRAIN/HEAD WITHOUT CONTRAST 10/26/2024 REASON FOR EXAM: PAIN TECHNIQUE: Procedure Code: CTBR Modality: CT Procedure: BRAIN/HEAD WITHOUT CONTRAST Coronal and Sagittal reconstruction series were provided. One or more dose reduction techniques were used (e.g., Automated exposure control, adjustment of the mA and/or kV according to patient size, use of iterative reconstruction technique. RADIATION DOSE SUMMARY: CTDlvol: 44.99 mGy DLP: 745 mGycm FINDINGS: BRAIN: No acute intraparenchymal hemorrhage. No mass lesion. No CT evidence for acute territorial infarct. No midline shift or extra-axial collection. VENTRICLES: No hydrocephalus. ORBITS: The orbits are unremarkable. SINUSES AND MASTOIDS: Partially imaged left maxillary sinus retention cyst/polyp. The mastoid air cells are clear. SOFT TISSUES: No acute abnormality seen. BONES: No acute osseous abnormality seen. CT/Brain/Head without Contrast IMPRESSION: No acute intracranial abnormality. Reading Location: [id number]
--- OUTSIDE RECORDS SUMMARY | 2024-10-26 13:30 | XMS RPT_ITS | CCD ---
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 [Mass/Vol] 1.05 mg/dL Normal 0.50-1.20 [facility] ([place] Comment on above: Performed By: #### T SH, A1C, CBC, ADIFF, ANEU, FE, CMP, FERR, GFR, FT4, VIDH ####[place] [address] Electrolyte Balance 0.0 mEq/L Low 4.0-15.0 [facility] ([place]) Comment on above: Performed By: #### T SH, A1C, CBC, ADIFF, ANEU, FE, CMP, FERR, GFR, FT4, VIDH ####[place] [address] Globulin 2.8 G/dL Normal 1.5-3.8 [facility] ([place]) Comment on above: Performed By: #### T SH, A1C, CBC, ADIFF, ANEU, FE, CMP, FERR, GFR, FT4, VIDH ####[address] [address] Glucose [Mass/Vol] 80 mg/dL Normal 70-110 [facility] ([place] Comment on above: Performed By: #### T SH, A1C, CBC, ADIFF, ANEU, FE, CMP, FERR, GFR, FT4, VIDH ####[place] [address] Potassium [Moles/Vol] 4.5 mmol/L Normal 3.5-5.0 [facility] ([place]) Comment on above: Performed By: #### T SH, A1C, CBC, ADIFF, ANEU, FE, CMP, FERR, GFR, FT4, VIDH ####[place] [address] Sodium [Moles/Vol] 144 mmol/L Normal 136-145 [facility] ([place] Comment on above: Performed By: #### T SH, A1C, CBC, ADIFF, ANEU, FE, CMP, FERR, GFR, FT4, VIDH ####[place] [address] Total Protein 6.8 G/dL Normal 5.7-8.2 [facility] ([place]) Comment on above: Result Comment: No te - New Reference Range in effect 19 Performed By: #### T SH, A1C, CBC, ADIFF, ANEU, FE, CMP, FERR, GFR, FT4, VIDH ####[place] [address] Urea nitrogen [Mass/Vol] 17.0 mg/dL Normal 8.0-22.0 [facility] ([place]) Comment on above: Performed By: #### T SH, A1C, CBC, ADIFF, ANEU, FE, CMP, FERR, GFR, FT4, VIDH ####[address] [address] FEon 03-16-2023 Iron [Mass/Vol] 117 ug/dL Normal 50-170 [facility] ([place]) Comment on above: Performed By: #### T SH, A1C, CBC, ADIFF, ANEU, FE, CMP, FERR, GFR, FT4, VIDH ####[place] [id number] Iggy 03-16-2023 Ferritin [Mass/Vol] 14.3 ng/mL Normal 8.0-252.0 [facility] ([place]) Comment on above: Performed By: #### T SH, A1C, CBC, ADIFF, ANEU, FE, CMP, FERR, GFR, FT4, VIDH ####[place] [id number] [address] [place], [place] [id number] FT4on 03-16-2023 Free T4 [Mass/Vol] 1.12 ng/dL Normal 0.89-1.76 [facility] ([place]) Comment on above: Result Comment: No te - New Reference Range in effect 19 Performed By: #### T SH, A1C, CBC, ADIFF, ANEU, FE, CMP, FERR, GFR, FT4, VIDH ####[place] [address] LABORATORYOrdered By: SYSTEM SYSTEM on 03-16-2023 25-hydroxyvitamin [...] TSHon 03-16-2023 TSH 0.703 mIU/mL Normal 0.550-4.780 [facility] ([place]) Comment on above: Result Comment: No te - New Reference Range in effect 19 Performed By: #### T SH, A1C, CBC, ADIFF, ANEU, FE, CMP, FERR, GFR, FT4, VIDH ####[place] [id number] [address] [place] [address] VIDHon 03-16-2023 Vit. D 25-Hydroxy 38.4 ng/mL Normal [facility] ([place]) Comment on above: Result Comment: Inte rpretive Values Based on Total 25(OH)D: Severe Deficiency <20 ng/mL Mild to Moderate Deficiency 20-30 ng/mL Optimum Levels 30-100 ng/mL Toxicity Possible >100 ng/mL Performed By: #### T SH, A1C, CBC, ADIFF, ANEU, FE, CMP, FERR, GFR, FT4, VIDH ####[address] [address] CTPCRon 11-22-2022 C. trachomatis Interp Normal See CT Interp N [facility] ([place]) Comment on above: Result Comment: C. t rachomatis DNA not detected. Specimen is presumptive negative for C. trachomatis. A negative result does not preclude C. trachomatis infection because results depend on adequate specimen collection, absence of inhibitors, and sufficient DNA to be detected. See CT Interp N Performed By: #### C TPCR, NGPCR1 #### [address] [address] C.trachomatis PCR Negative Normal Negative [facility] ([place]) Comment on above: Result Comment: Mole cular (PCR) assay performed on the [employer] 4800 system. Performed By: #### C TPCR, NGPCR1 #### [address] [address] Chlam Source Cervix Normal [facility] ([place]) Comment on above: Performed By: #### C TPCR, NGPCR1 #### [address] [address] [id number] 11-22-2022 GC PCR Source Cervix Normal [facility] ([place]) Comment on above: Performed By: #### C TPCR, NGPCR1 #### [address] [address] N. gonorrhoeae (PCR) Negative Normal Negative [facility] ([place]) Comment on above: Result Comment: Mole cular (PCR) assay performed on the [employer] 4800 System. Performed By: #### C TPCR, NGPCR1 #### [place] [address] N. gonorrhoeae Interp Normal See NG Interp N [facility] ([place]) Comment on above: Result Comment: N. g onorrhoeae DNA not detected. Specimen is presumptive negative for N. gonorrhoeae. A negative result does not preclude Neisseria gonorrhoeae infection because results depend on adequate specimen collection, absence of inhibitors, and sufficient DNA to be detected. See NG Interp N Performed By: #### C TPCR, NGPCR1 #### [place] [address] HBSAG 11-21-2022 Hep B Surf Ag Non-Reactive Normal Non-Reactive [facility] ([place]) Comment on above: Performed By: #### H BSAG, HCV1, HIV, RPR #### [place] [address] HCVon 11-21-2022 Hep C Ab Non-Reactive Normal Non-Reactive [facility] ([place]) Comment on above: Performed By: #### H BSAG, HCV1, HIV, RPR #### [place] [address] Hep C Ab Int Normal [facility] ([place]) Comment on above: Result Comment: Nonr eactive: [...] #### H BSAG, HCV1, HIV, RPR #### [place] [address] HIV 11-21-2022 HIV 1/2 Ab Non-Reactive Normal Non-Reactive [facility] ([place]) Comment on above: Result Comment: Spec imen is negative for anti-HIV-1 and anti-HIV-2. Performed By: #### H BSAG, HCV1, HIV, RPR #### [address] [address] RPRon 11-21-2022 Reagin Ab RPR Ql (S) Non-Reactive Normal Non-Reactive [facility] ([place]) Comment on above: Result Comment: The RPR [...] By: #### H BSAG, HCV1, HIV, RPR ####[place] [address] .Auto Diffon 11-14-2022 Basophil, Absolute 0.1 10 3/mcL Normal 0.0-0.3 [facility] ([place]) Comment on above: Performed By: #### C MP, GFR, CBC, ADIFF, PAULO, MDW, LIP ####[place] [address] Basophils/100 WBC (Bld) 0.5 % Normal 0.0-2.5 [facility] ([place]) Comment on above: Performed By: #### C MP, GFR, CBC, ADIFF, MD PAULOW, LIP ####[address] [address] Eosinophil, Absolute 0.1 10 3/mcL Normal 0.0-0.7 [facility] ([place]) Comment on above: Performed By: #### C MP, GFR, CBC, ADIFF, PAULO, MDW, LIP ####[address] [address] Eosinophils/100 WBC (Bld) 0.6 % Normal 0.0-6.0 [facility] ([place]) Comment on above: Performed By: #### C MP, GFR, CBC, ADIFF, PAULO, MDW, LIP ####[address] [address] Lymphocyte, Absolute 2.0 10 3/mcL Normal 0.9-4.3 [facility] ([place]) Comment on above: Performed By: #### C MP, GFR, CBC, ADIFF, PAULO, W, LIP ####[address] [address] Lymphocytes/100 WBC (Bld) 14.6 % Low 20.0-40.0 [facility] ([place]) Comment on above: Performed By: #### C MP, GFR, CBC, ADIFF, ANEU, MDW, LIP ####[address] [address] Monocyte, Absolute 0.7 10 3/mcL Normal 0.1-1.4 [facility] ([place]) Comment on above: Performed By: #### C MP, GFR, CBC, ADIFF, ANEU, MDW, LIP ####[address] [address] Monocytes/100 WBC (Bld) 5.1 % Normal 2.0-13.0 [facility] ([place]) Comment on above: Performed By: #### C MP, GFR, CBC, ADIFF, ANEU, MDW, LIP ####[address] [address] Neutrophils/100 WBC (Bld) 79.2 % High 50.0-75.0 [facility] ([place]) Comment on above: Performed By: #### C MP, GFR, CBC, ADIFF, ANEU, MDW, LIP ####[address] [address] .GFRon 11-14-2022 GFR >60 Normal [facility] ([place]) Comment on above: Result Comment: GFR Population [...] MP, GFR, CBC, ADPAULO GASPAR MDW, LIP ####[address] [address] GFR Non- >60 Normal [facility] ([place]) Comment on above: Result Comment: GFR Population [...] MP, GFR, CBC, ADIFF, LEON BATES, LIP ####[place] [address] .MDWon 11-14-2022 Monocyte Distribution Width 15.71 Normal 0.00-20.00 [facility] ([place]) Comment on above: Result Comment: For ED adult patients suspected of sepsis, MDW<=20.0 does not rule out sepsis or risk of sepsis Performed By: #### C MP, GFR, CBC, ADIFF, LEON BATES, LIP ####[address] [address] .NEUABSon 11-14-2022 Neutrophil, Absolute 10.9 10 3/mcL High 2.3-8.1 [facility] ([place]) Comment on above: Performed By: #### C MP, GFR, CBC, ADIFF, LEON BATES, LIP ####[address] [address] CBCon 11-14-2022 Erythrocyte distribution width (RBC) [Ratio] 12.7 % Normal 11.5-15.5 [facility] ([place]) Comment on above: Performed By: #### C MP, GFR, CBC, ADIFF, ANEU, MDW, LIP ####[place] [address] Hematocrit (Bld) [Volume fraction] 32.1 % Low 34.0-46.0 [facility] ([place]) Comment on above: Performed By: #### C MP, GFR, CBC, ADIFF, ANEU, MDW, LIP ####[place] [address] Hgb 10.9 G/dL Low 12.0-16.0 [facility] ([place]) Comment on above: Performed By: #### C MP, GFR, CBC, ADIFF, ANEU, MDW, LIP ####[place] [address] MCH (RBC) [Entitic mass] 31.5 pg Normal 27.0-33.0 [facility] ([place]) Comment on above: Performed By: #### C MP, GFR, CBC, ADIFF, ANEU, MDW, LIP ####[place] [address] MCHC 34.1 G/dL Normal 32.0-36.0 [facility] ([place]) Comment on above: Performed By: #### C MP, GFR, CBC, ADIFF, ANEU, MDW, LIP ####[place] [address] MCV (RBC) [Entitic vol] 92.3 fL Normal 80.0-99.0 [facility] ([place]) Comment on above: Performed By: #### C MP, GFR, CBC, ADIFF, ANEU, MDW, LIP ####[place] [id number] Platelet 180 10 3/mcL Normal 150-450 [facility] ([place]) Comment on above: Performed By: #### C MP, GFR, CBC, ADIFF, ANEU, MDW, LIP ####[place] [address] Platelet mean volume (Bld) [Entitic vol] 9.7 fL Normal 6.6-10.5 [facility] ([place]) Comment on above: Performed By: #### C MP, GFR, CBC, ADCHASITY, MD PAULOW, LIP ####[address] [address] RBC 3.47 10 6/mcL Low 4.10-5.30 [facility] ([place]) Comment on above: Performed By: #### C MP, GFR, CBC, ADIFF, PAULO, W, LIP ####[address] [address] WBC 13.8 10 3/mcL High 4.5-10.8 [facility] ([place]) Comment on above: Performed By: #### C MP, GFR, CBC, ADIFF, MD PAULOW, LIP ####[address] [address] CMPon 11-14-2022 Albumin Level 3.9 G/dL Normal 3.2-4.8 [facility] ([place]) Comment on above: Performed By: #### C MP, GFR, CBC, ADIFF, PAULO, W, LIP ####[place] [address] Albumin/Globulin [Mass ratio] 1.7 {ratio} High 0.9-1.6 [facility] ([place]) Comment on above: Performed By: #### C MP, GFR, CBC, ADIFF, PAULO, MDW, LIP ####[place] [address] ALP [Catalytic activity/Vol] 42 U/L Normal 38-126 [facility] ([place]) Comment on above: Performed By: #### C MP, GFR, CBC, ADIFF, PAULO, W, LIP ####[place] [address] ALT [Catalytic activity/Vol] 13 U/L Normal 10-49 [facility] ([place]) Comment on above: Performed By: #### C MP, GFR, CBC, ADIFF, ANEU, MDW, LIP ####[place] [id number] AST [Catalytic activity/Vol] 13 U/L Normal 8-34 [facility] ([place]) Comment on above: Performed By: #### C MP, GFR, CBC, ADIFF, LEON BATES, LIP ####[address] [address] Bili Total 0.40 mg/dL Normal 0.20-1.20 [facility] ([place]) Comment on above: Result Comment: Use of this assay is not recommended for patients undergoing treatment with eltrombopag due to the potential for falsely elevated results. Performed By: #### C MP, GFR, CBC, ADIFF, LEON BATES, LIP ####[address] [address] BUN/Creatinine Ratio 14.6 ratio Normal 10.0-22.0 [facility] ([place]) Comment on above: Performed By: #### C MP, GFR, CBC, ADIFF, LEON BATES, LIP ####[address] [address] Calcium [Mass/Vol] 8.9 mg/dL Normal 8.7-10.4 [facility] ([place] Comment on above: Performed By: #### C MP, GFR, CBC, ADIFF, LEON BATES, LIP ####[address] [address] Chloride [Moles/Vol] 108 mmol/L Normal 98-110 [facility] ([place] Comment on above: Performed By: #### C MP, GFR, CBC, ADIFF, LEON BATES, LIP ####[address] [address] CO2 [Moles/Vol] 27 mmol/L Normal 22-32 [facility] ([place] Comment on above: Performed By: #### C MP, GFR, CBC, ADIFF, LEON BATES, LIP ####[address] [address] Creatinine [Mass/Vol] 0.82 mg/dL Normal 0.50-1.20 [facility] ([place] Comment on above: Performed By: #### C MP, GFR, CBC, ADIFF, ANEU, MDW, LIP ####[address] [address] Electrolyte Balance 6.0 mEq/L Normal 4.0-15.0 [facility] ([place] Comment on above: Performed By: #### C MP, GFR, CBC, ADIFF, LEON BATES, LIP ####[address] [address] Globulin 2.3 G/dL Normal 1.5-3.8 [facility] ([place] Comment on above: Performed By: #### C MP, GFR, CBC, ADIFF, LEON BATES, LIP ####[address] [address] Glucose [Mass/Vol] 52 mg/dL Low 70-110 [facility] ([place] Comment on above: Performed By: #### C MP, GFR, CBC, ADIFF, MD PAULOW, LIP ####[address] [address] Potassium [Moles/Vol] 3.7 mmol/L Normal 3.5-5.0 [facility] ([place]) Comment on above: Performed By: #### C MP, GFR, CBC, ADCHASITY, LEON BATES, LIP ####[place] [id number] Sodium [Moles/Vol] 141 mmol/L Normal 136-145 [facility] ([place] Comment on above: Performed By: #### C MP, GFR, CBC, ADCHASITY, LEON BATES, LIP ####[place] [id number] Total Protein 6.2 G/dL Normal 5.7-8.2 [facility] ([place]) Comment on above: Result Comment: No te - New Reference Range in effect 19 Performed By: #### C MP, GFR, CBC, ADIFF, LEON BATES, LIP ####[address] [address] Urea nitrogen [Mass/Vol] 12.0 mg/dL Normal 8.0-22.0 [facility] ([place] Comment on above: Performed By: #### C MP, GFR, CBC, ADIFF, ANEU, MDW, LIP ####[place] [address] CT ABD/PELVIS W/ IV CONTRAST ONLYon 11-14-2022 [...] 11/14/2022 4:41:55 PM Ordering Provider: MARK Bartlett [facility] ([place]) LABORATORYOrdered By: Juan Carlos mcguire on 11-14-2022 Beta HCG ( test) Ql (U) Negative (11/14/22 10:33 AM) [facility] Work Phone: LABORATORYOrdered By: SYSTEM SYSTEM [...] 11-14-2022 Lipase Level 35 U/L Normal 12-53 [facility] ([place] Comment on above: Result Comment: No te - New Reference Range in effect 19 Performed By: #### C MP, GFR, CBC, ADIFF, ANEU, MDW, LIP ####[address] [address] UAon 11-14-2022 Color (U) Straw Normal [facility] ([place] Comment on above: Performed By: #### U A, UAMIC #### [place] [address] Glucose (U) [Mass/Vol] Negative Normal Negative [facility] ([place] Comment on above: Performed By: #### U A, UAMIC #### [place] [address] Ketones Ql (U) Negative Normal Neg-Trace [facility] ([place] Comment on above: Performed By: #### U A, UAMIC #### [place] [address] UA Appear Cloudy Abnormal Clear [facility] ([place] Comment on above: Performed By: #### U A, UAMIC #### [place] [address] UA Blood Small Abnormal Neg-Trace [facility] ([place] Comment on above: Performed By: #### U A, UAMIC #### [address] [address] UA Leuk Est Large Abnormal Negative [facility] ([place] Comment on above: Performed By: #### U A, UAMIC #### [place] [address] UA Nitrite Negative Normal Negative [facility] ([place] Comment on above: Performed By: #### U A, UAMIC #### [place] [address] UA pH 6.0 Normal 5.0 - 8.0 [facility] ([place] Comment on above: Performed By: #### U A, UAMIC #### [place] [address] UA Protein Negative Normal Negative [facility] ([place] Comment on above: Performed By: #### U A, UAMIC #### [place] [address] UA Spec Grav 1.010 Normal 1.006-1.029 [facility] ([place] Comment on above: Performed By: #### U A, UAMIC #### [place] [address] UA Specimen Type Not Given Normal [facility] ([place] Comment on above: Performed By: #### U A, UAMIC #### [place] [address] UA Urobilinogen 0.2 E.U./dL Normal 0.2-1.0 [facility] [place] Comment on above: Performed By: #### U A, UAMIC #### [place] [address] Urobilinogen (U) [Mass/Vol] Negative Normal Neg-Trace [facility] [place] Comment on above: Performed By: #### U A, UAMIC #### [place] [address] UAMICon 11-14-2022 UA Bacteria 2+ /hpf Abnormal Negative [facility] [place] Comment on above: Performed By: #### U A, UAMIC #### [place] [address] UA Glitter cells 50-100 Abnormal [facility] [place] Comment on above: Performed By: #### U A, UAMIC #### [place] [address] UA Mucous 2+ /hpf Normal [facility] [place] Comment on above: Performed By: #### U A, UAMIC #### [facility] [address] [place] [id number] UA RBC 0-2 Normal 0-2 [facility] [place] Comment on above: Performed By: #### U A UAMIC #### [facility] [address] [place] [id number] UA Squam Epithelial 3-5 Normal 0-20 [facility] [place] Comment on above: Performed By: #### U A, UAMIC #### [address] [address] UA WBC 25-50 Abnormal 0-5 [facility] [place] Comment on above: Performed By: #### U A, UAMIC #### [place] [address] CNOVon 04-16-2022 CNOV Office Visit ([facility] ) RONNA AGUAYO ([id number]) 1995 F Date Time Provider Department 04/16/22 11:10 AM [facility] LAK[facility]HA MIRELES During your visit today, [...] here. She also missed her shift at [employer] because the heat and [employer] was making her teeth hurt worse so she wants a slip to be off today and tomorrow from [employer]. And she was given that. Patient will [...] MG TABLET (more content not included)... Normal [facility] LABORATORYOrdered By: Mahsa Figueroa on 02-24-2022 Beta HCG ( test) Ql (U) Negative (02/24/22 12:24 PM) [facility] Work Phone: LABORATORYOrdered By: SYSTEM SYSTEM [...] 11-19-2021 Appearance (U) Clear (11/19/21 11:39 AM) [facility] Work Phone: Beta HCG ( test) Ql (U) Negative (11/19/21 11:39 AM) [facility] Work Phone: Bilirubin Urine Dipstick Negative (11/19/21 11:39 AM) [facility] Work Phone: Blood Urine Dipstick Negative (11/19/21 11:39 AM) [facility] Work Phone: Glucose Urine Dipstick Negative (11/19/21 11:39 AM) [facility] Work Phone: Ketones Urine Dipstick Negative (11/19/21 11:39 AM) [facility] Work Phone: Leukocytes Urine Dipstick Negative (11/19/21 11:39 AM) [facility] Work Phone: Nitrite Urine Dipstick Negative (11/19/21 11:39 AM) [facility] Work Phone: pH Urine Dipstick 6 (11/19/21 11:39 AM) [facility] Work Phone: Protein Urine Dipstick Negative (11/19/21 11:39 AM) [facility] Work Phone: Specific [place] Urine Dipstick 1.010 (11/19/21 11:39 AM) [facility] Work Phone: Urine Color Urine Dipstick Yellow (11/19/21 11:39 AM) [facility] Work Phone: Urobilinogen Urine Dipstick 0.2 mg/dl (11/19/21 11:39 AM) [facility] Work Phone: LABORATORYOrdered By: SYSTEM SYSTEM [...] ED NOTEon 2021 ED NOTE HNO ID: [id number] Author: Zainab Veloz, RN Service: ASSESSMENT Author Type: Registered Nurse Type: ED Notes Filed: 2021 12:20 AM Note Text: Pt presents to the ER for c/o rectal bleeding episode x1 today during BM with a hx of hemorrhoids during . Pt states pain in rectum as well. No other c/o no acute distress. [facility] ED PROV NOTEon 2021 ED PROV NOTE HNO ID: [id number] Author: Charbel Vazquez PA-C Service: Emergency Medicine Author Type: Physician Regulatory Internship Type: ED Provider Notes Filed: 10/01/2021 11:54 [...] FILIBERTO Mueller (more content not included)... Normal [facility] LABORATORYOrdered By: Yolanda Rich on 09-02-2021 Beta HCG ( test) Ql (U) Negative (09/02/21 11:49 AM) [facility] Work Phone: LABORATORYOrdered By: Yael House [...] width (RBC) [Ratio] 11.4 % Low 11.5-15.0 [facility] Comment on above: Order Comment: Speci men Type: BLOOD SPECIMEN Ordering Facility: [facility] Address: [address] [place] [address] Performed By: #### 5 8410-2 #### [facility] CLIA [id number] [address] [place] [address] [facility] [place] Hematocrit (Bld) [Volume fraction] 39.0 % Normal 36.0-46.0 [facility] Comment on above: Order Comment: Speci men Type: BLOOD SPECIMEN Ordering Facility: [facility] Address: [address] [place] [address] Performed By: #### 5 8410-2 #### [facility] CLIA [id number] [address] [place] [address] [place] Hemoglobin (Bld) [Mass/Vol] 13.2 g/dL Normal 11.5-15.5 [facility] Comment on above: Order Comment: Speci men Type: BLOOD SPECIMEN Ordering Facility: [facility] Address: [address] [place] [address] Performed By: #### 5 8410-2 #### [facility] CLIA [id number] [address] [place] [address] [place] MCH (RBC) [Entitic mass] 30.3 pg Normal 26.0-34.0 [facility] Comment on above: Order Comment: Speci men Type: BLOOD SPECIMEN Ordering Facility: [facility] Address: [address] [place], [place] [address] Performed By: #### 5 8410-2 #### [facility] CLIA [id number] [address] [place] [address] [place] MCHC (RBC) [Mass/Vol] 33.8 g/dL Normal 30.5-36.0 [facility] Comment on above: Order Comment: Speci men Type: BLOOD SPECIMEN Ordering Facility: [facility] Address: [address] [place], [place] [address] Performed By: #### 5 8410-2 #### [facility] CLIA [id number] [address] [place] [address] [place] MCV (RBC) [Entitic vol] 89.7 fL Normal 80.0-100.0 [facility] Comment on above: Order Comment: Speci men Type: BLOOD SPECIMEN Ordering Facility: [facility] Address: [address] [place] [address] Performed By: #### 5 8410-2 #### [facility] CLIA [id number] [address] [place] [address] [place] Nucleated RBC (Bld) [#/Vol] 10*3/uL Normal <0.01 [facility] Comment on above: Order Comment: Speci men Type: BLOOD SPECIMEN Ordering Facility: [facility] Address: [address] [place] [address] Performed By: #### 5 8410-2 #### [facility] CLIA [id number] [address] [place] [address] [place] Platelet mean volume (Bld) [Entitic vol] 11.2 fL Normal 9.0-12.7 [facility] Comment on above: Order Comment: Speci men Type: BLOOD SPECIMEN Ordering Facility: [facility] Address: [address] [place] [address] Performed By: #### 5 8410-2 #### [facility] CLIA [id number] [address] [place] [address] [place] Platelets (Bld) [#/Vol] 181 10*3/uL Normal 150-400 [facility] Comment on above: Order Comment: Speci men Type: BLOOD SPECIMEN Ordering Facility: [facility] Address: [address] [place], [place] [address] Performed By: #### 5 8410-2 #### [facility] CLIA [id number] [address] [place] [address] [place] RBC (Bld) [#/Vol] 4.35 10*6/uL Normal 3.90-5.20 [facility] Comment on above: Order Comment: Speci men Type: BLOOD SPECIMEN Ordering Facility: [facility] Address: [address] [place] [address] [address] Performed By: #### 5 8410-2 #### [facility] CLIA [id number] [address] [place] [address] [facility] WBC (Bld) [#/Vol] 6.30 10*3/uL Normal 3.70-11.00 [facility] Comment on above: Order Comment: Speci men Type: BLOOD SPECIMEN Ordering Facility: [facility] Address: [address] [place], [place] [address] Performed By: #### 5 8410-2 #### [facility] CLIA [id number] [address] [place] [address] OF [facility] Comprehensive metabolic 2000 panelon 08-18-2021 Albumin [Mass/Vol] 3.8 g/dL Normal 3.2-5.0 [facility] Comment on above: Order Comment: Speci men Type: BLOOD SPECIMEN Ordering Facility: [facility] Address: [address] [place], [place] [address] Performed By: #### 2 4323-8, 5643-2 #### [facility] CLIA [id number] [address] [place] [address] [place] ALP [Catalytic activity/Vol] 91 U/L Normal 45-117 [facility] Comment on above: Order Comment: Speci men Type: BLOOD SPECIMEN Ordering Facility: [facility] Address: [address] [place], [place] [address] Performed By: #### 2 4323-8, 5643-2 #### [facility] CLIA [id number] [address] [place] [address] [place] ALT [Catalytic activity/Vol] 24 U/L Normal 13-61 [facility] Comment on above: Order Comment: Speci men Type: BLOOD SPECIMEN Ordering Facility: [facility] Address: [address] [place], [place] [address] Result Comment: Resu lts may be falsely depressed after the administration of Sulfasalazine and/or Sulfapyridine. Performed By: #### 2 4323-8, 5643-2 #### [facility] CLIA [id number] [address] [place] [address] [place] Anion gap [Moles/Vol] 6 mmol/L Normal 5-16 [facility] Comment on above: Order Comment: Speci men Type: BLOOD SPECIMEN Ordering Facility: [facility] Address: [address] [place] [address] Performed By: #### 2 4323-8, 5643-2 #### [facility] CLIA [id number] [address] [place] [address] [place] AST [Catalytic activity/Vol] 18 U/L Normal 8-34 [facility] Comment on above: Order Comment: Whitneyi dora Type: BLOOD SPECIMEN Ordering Facility: [facility] Address: [address] [place] [address] Result Comment: Resu lts may be falsely depressed after the administration of Sulfasalazine and/or Sulfapyridine. Performed By: #### 2 4323-8, 5643-2 #### [facility] CLIA [id number] [address] [place] [address] [place] Bilirubin [Mass/Vol] 0.4 mg/dL Normal 0.2-1.0 [facility] Comment on above: Order Comment: Whitneyi men Type: BLOOD SPECIMEN Ordering Facility: [facility] Address: [address] [address] Performed By: #### 2 4323-8, 5643-2 #### [facility] CLIA [id number] [address] [place] [address] [place] Calcium [Mass/Vol] 10.0 mg/dL Normal 8.5-10.5 [facility] Comment on above: Order Comment: Whitneyi men Type: BLOOD SPECIMEN Ordering Facility: [facility] Address: [address] [place] [address] Performed By: #### 2 4323-8, 5643-2 #### [facility] CLIA [id number] [address] [place], [place] [address] [place] Chloride [Moles/Vol] 107 mmol/L Normal 98-107 [facility] Comment on above: Order Comment: Speci men Type: BLOOD SPECIMEN Ordering Facility: [facility] Address: [address] [place] [address] Performed By: #### 2 4323-8, 5643-2 #### [facility] CLIA [id number] [address] [place], [place] [address] [place]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 Comment: Rameshu s: MAS POC SPEC GRAV 1.030 Normal 1.005-1.030 [facility] Comment on above: Order Comment: Campu s: MAS POC UA GLUCOSE NORMAL Normal NORMAL [facility] Comment on above: Order Comment: Campu s: MAS POC UA PH 5.0 Normal 5-6 [facility] Comment on above: Order Comment: Rameshu s: MAS POC UROBIL NORMAL Normal NORMAL [facility] Comment on above: Order Comment: Shital s: BENJA MSCon 11-19-2020 [facility] REPORT Normal [facility] DATE OF SERVICE: 09/2020 REASON FOR VISIT: [...] on room air, pain score 4/10. HEENT: [facility] PATIENT NAME: RONNA AGUAYO [address] [facility] [address] MEDICAL REC #: [id number] [place] [id number] [facility] REPORT STATCARE PHYSICIAN Unremarkable. Chest: [...] go to the hospital. 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 Regarding the eczema, I told her about yxot-wnp-dhojpxk cortisone cream. I explained to her that I do not want to prescriber any strong cream, but wvwt-tyo-ipvymbh hydrocortisone cream should really help. I prescribed her vitamin 1 tablet [facility] PATIENT NAME: RONNA AGUAYO [address] MEDICAL REC #: [id number] [place] [address] [facility] REPORT STATCARE PHYSICIAN daily, 30 tablets, with no refill and instructed her to see OB as soon as possible. The patient understands and agrees. Her questions were answered to her satisfaction. Hoang Sweeney MD PP/[id number] [facility] File#: [id number] END OF DOCUMENT / CHANGE LOG FOLLOWS Last Edited By Elec. Signed By Hoang Sweeney MD #PAWPR Hoang Sweeney MD #PAWPR on 11/29/2020 18:00 ET on 11/29/2020 18:00 ET Revision Number - 2 Verified/Reviewed by 11/29/20 Shaista YEPEZ [facility] PATIENT NAME: RONAN AGUAYO [address] MEDICAL REC #: [id number] [place] [address] [facility] REPORT STATCARE PHYSICIAN Normal [facility] CBC W/DIFFon 11-13-2020 BASO ABS 0.00 K/CU MM Normal 0-0.2 [facility] Comment on above: Order Comment: Campu s: M Performed By: #### L 200.01983 #### [facility] [address] [place] [address] Basophils/100 WBC (Bld) 0.3 % Normal 0-2 [facility] Comment on above: Order Comment: Campu s: M Performed By: #### L 200.21404 #### [facility] [address] [place] [address] EOS ABS 0.30 K/CU MM Normal 0-0.5 [facility] Comment on above: Order Comment: Campu s: M Performed By: #### L 200.75169 #### [facility] [address] [place] [address] Eosinophils/100 WBC (Bld) 3.5 % Normal 0-5 [facility] Comment on above: Order Comment: Campu s: M Performed By: #### L 200.71687 #### [facility] [address] [place] [address] Erythrocyte distribution width (RBC) [Ratio] 12.2 % Normal 11-14.5 [facility] Comment on above: Order Comment: Campu s: M Performed By: #### L 200.65858 #### [facility] [address] [place] [address] Hematocrit (Bld) [Volume fraction] 39.6 % Normal 35.0-47.0 [facility] Comment on above: Order Comment: Campu s: M Performed By: #### L 200.69072 #### [facility] [address] [place] [address] Hemoglobin (Bld) [Mass/Vol] 13.1 g/dL Normal 11.5-15.5 [facility] Comment on above: Order Comment: Campu s: M Performed By: #### L 200.83638 #### [facility] [address] [place] [address] IMMATR GRAN ABS 0.00 K/CU MM Normal Less than 2 [facility] Comment on above: Order Comment: Campu s: M Performed By: #### L 200.64136 #### [facility] [address] [place] [address] IMMATURE GRAN % 0.5 % Normal Less than 2 [facility] Comment on above: Order Comment: Campu s: M Performed By: #### L 200.39582 #### [facility] [address] [place] [address] LYMPH ABS 1.50 K/CU MM Normal 0.9-4.4 [facility] Comment on above: Order Comment: Campu s: M Performed By: #### L 200.37424 #### [facility] [address] [place] [address] Lymphocytes/100 WBC (Bld) 19.3 % Low 20-40 [facility] Comment on above: Order Comment: Campu s: M Performed By: #### L 200.71442 #### [facility] [address] [place] [address] MCHC (RBC) [Mass/Vol] 33.1 g/dL Normal 32.0-36.0 [facility] Comment on above: Order Comment: Campu s: M Performed By: #### L 200.07554 #### [facility] [address] [place] [address] MCV (RBC) [Entitic vol] 94.3 fL Normal 80.0-99.0 [facility] Comment on above: Order Comment: Campu s: M Performed By: #### L 200.68628 #### [facility] [address] [place] [address] MONO ABS 0.70 K/CU MM Normal 0.1-1.1 [facility] Comment on above: Order Comment: Campu s: M Performed By: #### L 200.13404 #### [facility] [address] [place] [address] Monocytes/100 WBC (Bld) 8.6 % Normal 2-10 [facility] Comment on above: Order Comment: Campu s: M Performed By: #### L 200.39187 #### [facility] [address] [place] [address] NEUTROPHIL ABS 5.30 K/CU MM Normal 2.0-8.3 [facility] Comment on above: Order Comment: Campu s: M Performed By: #### L 200.57763 #### [facility] [address] [place] [address] Neutrophils/100 WBC (Bld) 67.8 % Normal 45-75 [facility] Comment on above: Order Comment: Campu s: M Performed By: #### L 200.58616 #### [facility] [address] [place] [address] Nucleated RBC/100 WBC (Bld) [Ratio] 0.0 % Normal Less than 1 [facility] Comment on above: Order Comment: Campu s: M Performed By: #### L 200.41261 #### [facility] [address] [place] [address] Platelet mean volume (Bld) [Entitic vol] 11.4 fL Normal 9.4-12.4 [facility] Comment on above: Order Comment: Campu s: M Performed By: #### L 200.60993 #### [facility] [address] [place] [address] PLT 172 K/CU MM Normal 150-450 [facility] Comment on above: Order Comment: Campu s: M Performed By: #### L 200.62766 #### [facility] [address] [place] [address] RBC 4.20 M/CU MM Normal 3.90-5.30 [facility] Comment on above: Order Comment: Campu s: M Performed By: #### L 200.26840 #### [facility] [address] [place] [address] WBC 7.8 K/CUMM Normal 4.5-11.0 [facility] Comment on above: Order Comment: Campu s: M Performed By: #### L 200.40097 #### [facility] [address] [place] [address] Sandy 11-13-2020 EMERGENCY PHYSICIAN REPORT This is a preliminary report only, as the practitioner review and authentication has not occurred. Normal [facility] ER PHYSICIAN ASSESSMENT RECORDS : Discharge Report Event Time: 11/13/2020 15:02 : FlexChartData Event Time: 11/13/2020 15:35 Status: Signed [facility] Ronna Aguayo [[id number]] Attending Physician 1995 Chart (V2b) Chart created at 11/13/2020 14:58 by Michael Martinez Chart closed at 11/13/2020 15:00 Entry in Emergency Department at 11/13/2020 13:04, departure at 11/13/2020 15:28 Patient Name: Ronna Aguayo Record Number: [id number] Date: 11/13/2020 14:58 Entered Department at: 11/13/2020 [...] down some steps a few days ago [facility] PATIENT NAME: RONNA AGUAYO [address] [facility] [address] MEDICAL REC #: [id number] [place] [id number] EMERGENCY DEPARTMENT REPORT EMERGENCY DEPARTMENT PHYSICIAN and [...] / 7.8 andgt;------andlt; 172 / 39.6 / [facility] PATIENT NAME: RONNA AGUAYO [address] [facility] [address] MEDICAL REC #: [id number] [place] [address] EMERGENCY DEPARTMENT REPORT EMERGENCY DEPARTMENT PHYSICIAN N:67.8 [...] Draft Reasons to Return to the ER: [facility] PATIENT NAME: RONNA AGUAYO [address] [facility] [address] MEDICAL REC #: [id number] [place] [address] EMERGENCY DEPARTMENT REPORT EMERGENCY DEPARTMENT (more content not included)... Normal [facility] SHOULDER MIN 2 VWS RTon 10 SHOULDER [...] GRAF M.D. Signed By: LAURIE GRAF M.D. 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 [facility] PATIENT NAME: RONNA AGUAYO [address] [facility] [address] MEDICAL REC #: [id number] [place] [address] [facility] REPORT STATCARE PHYSICIAN At that [...] perhaps she needed to get into a cooperative manager or just follow up with her [...] have to sign for them. So, we [facility] PATIENT NAME: RONNA AGUAYO R [address] [facility] [address] Zarate MEDICAL REC #: [id number] [place] [address] [facility] REPORT [facility] PHYSICIAN did that, [...] was already off today. Nishi Munoz DO /[id number] [facility] PATIENT NAME: RONNA AGUAYO R [address] [facility] [address] Zarate MEDICAL REC #: [id number] [place] [address] [facility] REPORT [facility] PHYSICIAN SSI File#: [id number] END OF DOCUMENT / CHANGE LOG FOLLOWS Last Edited By Elec. Signed By Nishi Munoz DO #Nishi Boo DO #FELI on 10/01/2020 08:50 ET on 10/01/2020 08:50 ET Revision Number - 2 Verified/Reviewed by 10/01/20 0850 FELI DAVID (more content not included)... Normal [facility] BMPon 07-27-2020 Anion gap [Moles/Vol] 4 mmol/L Low - [facility] Comment on above: Order Comment: Rameshu s: M Performed By: #### L 500.27340, L500.31767, L500.55287 #### [facility] [address] [place] [address] Calcium [Mass/Vol] 9.7 mg/dL Normal 8.5-10.5 [facility] Comment on above: Order Comment: Campu s: M Result Comment: NOTE NEW NORMAL RANGE DUE TO REAGENT CHANGE Performed By: #### L 500.91618, L500.30495, L500.89378 #### [facility] [place] [address] Chloride [Moles/Vol] 108 mmol/L High 98-107 [facility] Comment on above: Order Comment: Campu s: M Performed By: #### L 500.04082, L500.86216, L500.30655 #### [facility] [address] [place] [address] CO2 [Moles/Vol] 31.0 mmol/L Normal 21-32 [facility] Comment on above: Order Comment: Campu s: M Performed By: #### L 500.24872, L500.87250, L500.98660 #### [facility] [address] [place] [address] Creatinine [Mass/Vol] 0.76 mg/dL Normal 0.510-0.950 [facility] Comment on above: Order Comment: Campu s: M Result Comment: Tatum ents receiving either N-Acetylcysteine (NAC) or Metamizole prior to venipuncture, may have falsely depressed results. Performed By: #### L 500.16255, L500.45327, L500.32544 #### [facility] [address] [place] [address] Glucose [Mass/Vol] 105 mg/dL High 70-100 [facility] Comment on above: Order Comment: Campu s: M Result Comment: 70-1 00- Normal Fasting; 100-125 Impaired Fasting; greater than 126 on more than one result- Diabetes. ADA guidelines. Results may be falsely elevated after the administration of Sulfapyridine. Results may be falsely depressed after the administration of Sulfasalazine. Performed By: #### L 500.77126, L500.76584, L500.02320 #### [facility] [address] [place], [place] [address] Potassium [Moles/Vol] 4.5 mmol/L Normal 3.5-5.1 [facility] Comment on above: Order Comment: Campu s: M Result Comment: Slig ht Hemolysis, Result may be affected. Performed By: #### L 500.18937, L500.93754, L500.79832 #### [facility] [place] [address] Sodium [Moles/Vol] 143 mmol/L Normal 136-145 [facility] Comment on above: Order Comment: Campu s: M Performed By: #### L 500.80615, L500.25730, L500.34256 #### [facility] [address] [place] [address] Urea nitrogen [Mass/Vol] 8 mg/dL Normal 7-26 [facility] Comment on above: Order Comment: Campu s: M Performed By: #### L 500.32784, L500.71030, L500.63767 #### [facility] [address] [place] [address] Urea nitrogen/Creatinin e [Mass ratio] 11 mg/mg Low 15-24 [facility] Comment on above: Order Comment: Campu s: M Performed By: #### L 500.92841, L500.99850, L500.87863 #### [facility] [address] [place], [place] [address] CBC W/DIFFon 07-27-2020 BASO ABS 0.00 K/CU MM Normal 0-0.2 [facility] Comment on above: Order Comment: Campu s: M Performed By: #### L 200.06573 ####[facility] [id number] [place], [place] [address]To# [phone] Basophils/100 WBC (Bld) 0.3 % Normal 0-2 [facility] Comment on above: Order Comment: Campu s: M Performed By: #### L 200.71021 ####[facility] [id number] [place], [place] [address]Yq# [phone] EOS ABS 0.30 K/CU MM Normal 0-0.5 [facility] [place] Comment on above: Order Comment: Campu s: M Performed By: #### L 200.95891 ####[address] [address]Bc# [phone] Eosinophils/100 WBC (Bld) 2.9 % Normal 0-5 [facility] Comment on above: Order Comment: Campu s: M Performed By: #### L 200.98169 ####[place] [address]Ph# [phone] Erythrocyte distribution width (RBC) [Ratio] 12.3 % Normal 11-14.5 [facility] Comment on above: Order Comment: Campu s: M Performed By: #### L 200.36586 ####[facility] [id number] [place], [place] [address]Ph# [phone] Hematocrit (Bld) [Volume fraction] 40.7 % Normal 35.0-47.0 [facility] Comment on above: Order Comment: Campu s: M Performed By: #### L 200.93766 ####[address] [address]Ua# [phone] Hemoglobin (Bld) [Mass/Vol] 13.6 g/dL Normal 11.5-15.5 [facility] Comment on above: Order Comment: Campu s: M Performed By: #### L 200.13037 ####[facility] [id number] [place] [address]Ak# [phone] IMMATR GRAN ABS 0.00 K/CU MM Normal Less than 2 [facility] Comment on above: Order Comment: Campu s: M Performed By: #### L 200.74452 ####[facility] [id number] [place], [place] [address]Ph# [phone] IMMATURE GRAN % 0.3 % Normal Less than 2 [facility] Comment on above: Order Comment: Campu s: M Performed By: #### L 200.60631 ####[facility] [id number] [place] [address]Cj# [phone] LYMPH ABS 1.60 K/CU MM Normal 0.9-4.4 [facility] Comment on above: Order Comment: Campu s: M Performed By: #### L 200.22140 ####[place] [address]Ph# [phone] Lymphocytes/100 WBC (Bld) 13.7 % Low 20-40 [facility] Comment on above: Order Comment: Campu s: M Performed By: #### L 200.68288 ####[address] [address]Se# [phone] MCHC (RBC) [Mass/Vol] 33.4 g/dL Normal 32.0-36.0 [facility] Comment on above: Order Comment: Campu s: M Performed By: #### L 200.46129 ####[place] [address]Ph# [phone] MCV (RBC) [Entitic vol] 94.7 fL Normal 80.0-99.0 [facility] Comment on above: Order Comment: Campu s: M Performed By: #### L 200.85401 ####[place] [address]Ph# [phone] MONO ABS 0.70 K/CU MM Normal 0.1-1.1 [facility] Comment on above: Order Comment: Campu s: M Performed By: #### L 200.70400 ####[facility] [id number] [place] [address]Nt# [phone] Monocytes/100 WBC (Bld) 6.1 % Normal 2-10 [facility] Comment on above: Order Comment: Campu s: M Performed By: #### L 200.29922 ####[facility] [id number] [place], [place] [address]Ur# [phone] NEUTROPHIL ABS 8.90 K/CU MM High 2.0-8.3 [facility] Comment on above: Order Comment: Campu s: M Performed By: #### L 200.95930 ####[facility] [id number] [place] [address]Zc# [phone] Neutrophils/100 WBC (Bld) 76.7 % High 45-75 [facility] Comment on above: Order Comment: Campu s: M Performed By: #### L 200.94154 ####[facility] [id number] [place], [place] [address]Ph# [phone] Nucleated RBC/100 WBC (Bld) [Ratio] 0.0 % Normal Less than 1 [facility] Comment on above: Order Comment: Campu s: M Performed By: #### L 200.65728 ####[facility] [id number] [place], [place] [address]Ph# [phone] Platelet mean volume (Bld) [Entitic vol] 11.2 fL Normal 9.4-12.4 [facility] Comment on above: Order Comment: Campu s: M Performed By: #### L 200.03525 ####[facility] [id number] [place] [address]Fy# [phone] PLT 229 K/CU MM Normal 150-450 [facility] Comment on above: Order Comment: Campu s: M Performed By: #### L 200.60296 ####[facility] [id number] [place], [place] [address]Km# [phone] RBC 4.30 M/CU MM Normal 3.90-5.30 [facility] Comment on above: Order Comment: Campu s: M Performed By: #### L 200.57839 ####[facility] [id number] [place] [address]Cr# [phone] WBC 11.6 K/CUMM High 4.5-11.0 [facility] Comment on above: Order Comment: Shital onesimo: Meghan Performed By: #### L 200.81462 ####[facility] [id number] [place], [place] [address]Nk# [phone] CT CERVICAL SP. W/O CONon CT CERVICAL [...] M.D. Signed By: JAYJAY CHADWICK M.D. Normal [facility] CT HEAD/BRAIN W/O CONon 07-13 CT [...] CHADWICK M.D. Signed By: JAYJAY CHADWICK M.D. [facility] CT THORAX WITH CONon 06-15-2 021 [...] CHADWICK M.D. Signed By: JAYJAY CHADWICK M.D. [facility] Sandy 07-27-2020 EMERGENCY PHYSICIAN REPORT This is a preliminary report only, as the practitioner review and authentication has not occurred. [facility] ER PHYSICIAN ASSESSMENT RECORDS : FlexChartData Event Time: 07/27/2020 07:25 Status: Signed [facility] Ronna Aguayo [[id number]] Attending Physician 1995 Chart (V2b) Chart created at 07/27/2020 07:19 by Declan Garcia Chart closed at 07/27/2020 16:28 Entry in Emergency Department at 07/27/2020 02:58, departure at 07/27/2020 09:08 Patient Name: Ronna Aguayo Record Number: [id number] Date: 07/27/2020 07:19 Entered Department at: 07/27/2020 [...] did not black out or lose consciousness. [facility] PATIENT NAME: RONNA [facility]UAYO R [address] [facility] #: [id number] [place] [address] EMERGENCY DEPARTMENT REPORT EMERGENCY DEPARTMENT PHYSICIAN Reports [...] W/DIFF, information as of 07/27/2020, 5:48 am [facility] PATIENT NAME: RONNA AGUAYO [address] MEDICAL REC #: [id number] [place] [address] EMERGENCY DEPARTMENT REPORT EMERGENCY DEPARTMENT PHYSICIAN 94.7 [...] [facility]ENTER PATIENT NAME: RONNA AGUAYO [address] [facility] [address] Zarate MEDICAL REC #: [id number] [place] [address] EMERGENCY DEPARTMENT REPORT EMERGENCY DEPARTMENT PHYSICIAN were obtained. Mult (more content not included)... Normal [facility] 07-27-2020 IF AMER Greater than 60 Normal [facility] Comment on above: Order Comment: Campu s: M Performed By: #### L 500.99592, L500.12445, L500.17510 #### [facility] [address] [place] [address] IF non-AFR AMER Greater than 60 Normal [facility] Comment on above: Order Comment: Campu s: M Performed By: #### L 500.45787, L500.16463, L500.58400 #### [facility] [address] [place] [address] HCGon 07-27-2020 HCG SER RESULT Negative Normal NEGATIVE [facility] Comment on above: Order Comment: Campu s: M Performed By: #### L 500.67966, L500.74987, L500.05944 #### [facility] [address] [place] [address] LUMBAR SPINE OBL MIN 4 VIEWS on [...] GRAF M.D. Signed By: LAURIE GRAF M.D. [facility] REPORT [facility] DATE OF SERVICE: SUBJECTIVE: This is a [...] OF SYSTEMS: Constitutional: No fevers, chills, fatigue. [facility] PATIENT NAME: RONNA AGUAYO [address] [facility] [address] Zarate MEDICAL REC #: [id number] [place] [address] [facility] REPORT [facility] PHYSICIAN Skin: No [...] acute process. Radiology overread will be performed. [facility] PATIENT NAME: RONNA AGUAYO [address] [facility] [address] Zarate MEDICAL REC #: [id number] [place] [address] [facility] REPORT [facility] PHYSICIAN ASSESSMENT AND PLAN/DIAGNOSIS: Low back strain. Patient was given a note to be off of work tomorrow, but she can go back on Sunday. Recommended Tylenol, Motrin, fluids, rest, and heating pad to the back. Patient agreeable. Stable on discharge. All questions answered. FILIBERTO [id number] SSI File#: [id number] END OF DOCUMENT / CHANGE LOG FOLLOWS Last Edited By Elec. Signed By Micaela Guy Theresa PAC #WASTH on 06/14/2020 13:38 ET on 06/14/2020 13:38 ET Revision Number - 2 Verified/Reviewed by 06/14/20 1338 LA [facility] PATIENT NAME: RONNA AGUAYO [address] [facility] [address] Zarate MEDICAL REC #: [id number] [place] [address] [facility] REPORT [facility] PHYSICIAN Normal [facility] URINE PREGNANCYon 06-11-2020 Beta HCG ( test) Ql (U) Negative Normal NEGATIVE [facility] Comment on above: Order Comment: Shital s: BENJA UR SPEC GRAV 1.010 Normal 1.005-1.030 [facility] Comment on above: Order Comment: Shital s: BEJNA MSCon 06-09-2020 [facility] REPORT Normal [facility] MSC DATE OF SERVICE: REASON OF [...] spleen were not palpable. Overall, exam did [facility] PATIENT NAME: RONAN AGUAYO [address] [facility] [address] Zarate MEDICAL REC #: [id number] [place] [id number] [facility] REPORT [facility]ARE PHYSICIAN not show [...] Patient understands and agrees. Hoang Sweeney MD [id number] SSI File#: [id number] END OF DOCUMENT / CHANGE LOG FOLLOWS [facility] PATIENT NAME: RONNA AGUAYO [address] MEDICAL REC #: [id number] [place] [address] [facility] REPORT [facility] PHYSICIAN Last Edited By Elec. Signed By Hoang Sweeney MD #PAWPR Hoang Sweeney MD #PAWPR on 06/10/2020 18:38 ET on 06/10/2020 18:38 ET Revision Number - 2 Verified/Reviewed by 06/10/20 1838 LUCHO [facility] PATIENT NAME: RONNA AGUAYO [address] MEDICAL REC #: [id number] [place] [address] [facility] REPORT [facility] PHYSICIAN Normal [facility] Vital Signs Date Time Vital Sign Value Performing Clinician Facility 03-17-2024 10:07-0500 Body mass index (BMI) [Ratio] 22.54 kg/m2 Ra Cantu APRN.CNP Work Phone: [facility] 03-17-2024 10:07-0500 Body temperature 98.29 [degF] Ra Cantu APRN.CNP Work Phone: [facility] 03-17-2024 10:07-0500 Body weight 55.9 kg Ra Cantu APRN.STATION DETECTIVE Work Phone: [facility] 03-17-2024 10:07-0500 Diastolic blood pressure 74 mm[Hg] Ra James [employer]IONICS SYSTEMS ENGINEER.STATION DETECTIVE Work Phone: [facility] 03-17-2024 10:07-0500 Heart rate 84 /min Ra Cantu AVIONICS SYSTEMS ENGINEER.STATION DETECTIVE Work Phone: [facility] 03-17-2024 10:07-0500 Respiratory rate 16 /min Ra Cantu AVIONICS SYSTEMS ENGINEER.STATION DETECTIVE Work Phone: [facility] 03-17-2024 10:07-0500 SaO2% (BldA) [Mass fraction] 97 % Ra Cantu AVIONICS SYSTEMS ENGINEER.STATION DETECTIVE Work Phone: [facility] 03-17-2024 10:07-0500 Systolic blood pressure 116 mm[Hg] Ra Cantu AVIONICS SYSTEMS ENGINEER.STATION DETECTIVE Work Phone: [facility] 10-24-2023 09:22-0400 Body mass index (BMI) [Ratio] 22.5 kg/m2 Rodrigue Humberto AVIONICS SYSTEMS ENGINEER.STATION DETECTIVE Work Phone: [facility] 10-24-2023 09:22-0400 Body temperature 98.49 [degF] Rodrigue Humberto AVIONICS SYSTEMS ENGINEER.STATION DETECTIVE Work Phone: [facility] 10-24-2023 09:22-0400 Body weight 55.8 kg Rodrigue Humberto AVIONICS SYSTEMS ENGINEER.STATION DETECTIVE Work Phone: [facility] 10-24-2023 09:22-0400 Diastolic blood pressure 64 mm[Hg] Rodrigue Scarletorf AVIONICS SYSTEMS ENGINEER.STATION DETECTIVE Work Phone: [facility] 10-24-2023 09:22-0400 Heart rate 96 /min Rodrigue Novakorf AVIONICS SYSTEMS ENGINEER.STATION DETECTIVE Work Phone: [facility] 10-24-2023 09:22-0400 Respiratory rate 16 /min Rodrigue Novakorf AVIONICS SYSTEMS ENGINEER.STATION DETECTIVE Work Phone: [facility] 10-24-2023 09:22-0400 SaO2% (BldA) [Mass fraction] 100 % Rodrigue Paul [employer]IONICS SYSTEMS ENGINEER.STATION DETECTIVE Work Phone: [facility] 10-24-2023 09:22-0400 Systolic blood pressure 112 mm[Hg] Rodrigue Paul AVIONICS SYSTEMS ENGINEER.STATION DETECTIVE Work Phone: [facility] 11-14-2022 17:22-0400 Body temperature 97.7 [degF] JAYJAY ALVES MD [facility] 11-14-2022 17:22-0400 Diastolic Blood Pressure Non-Invasive 67 1 JAYJAY ALVES MD [address] [place] [address] 11-14-2022 17:22-0400 Heart rate 80 /min JAYJAY ALVES MD [address] [place] [address] 11-14-2022 17:22-0400 Respiratory rate 18 /min JAYJAY ALVES MD [address] [place] [address] 11-14-2022 17:22-0400 Systolic Blood Pressure Non-Invasive 112 1 JAYJAY ALVES MD [address] [place] [address] 11-14-2022 11:12-0400 Body temperature 98.06 [degF] JAYJAY ALVES MD [address] [place] [address] 11-14-2022 11:12-0400 Diastolic Blood Pressure Non-Invasive 62 1 JAYJAY ALVES MD [facility] 11-14-2022 11:12-0400 Heart rate 76 /min AJYJAY ALVES MD [facility] 11-14-2022 11:12-0400 Reason For Taking VItal Signs JAYJAY ALVES MD [facility] 11-14-2022 11:12-0400 Respiratory rate 16 /min JAYJAY ALVES MD [address] [place] [address] 11-14-2022 11:12-0400 Systolic Blood Pressure Non-Invasive 98 1 JAYJAY ALVES MD [facility] 11-14-2022 09:46-0400 Blood Pressure Cuff Size JAYJAY ALVES MD [facility] 11-14-2022 09:46-0400 Blood Pressure Location JAYJAY ALVES MD [facility] 11-14-2022 09:46-0400 Blood Pressure Method JAYJAY ALVES MD [address] [place] [address] 11-14-2022 09:46-0400 Body height 157.5 cm JAYJAY ALVES MD [facility] 11-14-2022 09:46-0400 Body temperature 98.96 [degF] JAYJAY ALVES MD [facility] 11-14-2022 09:46-0400 Body weight 52.6 kg JAYJAY ALVES MD [address] [place] [address] 11-14-2022 09:46-0400 Diastolic Blood Pressure Non-Invasive 76 1 JAYJAY ALVES MD [facility] 11-14-2022 09:46-0400 Heart rate 85 /min JAYJAY ALVES MD [address] [place] [address] 11-14-2022 09:46-0400 Systolic Blood Pressure Non-Invasive 112 1 JAYJAY ALVES MD [facility] 05-06-2022 20:27-0400 Body temperature 97.88 [degF] DR ELYSSA BOLDEN MD [facility] 05-06-2022 20:27-0400 Body weight 51.[address] ELYSSA BOLDEN MD [facility] 05-06-2022 20:27-0400 Diastolic Blood Pressure Non-Invasive [address] ELYSSA BOLDEN MD [facility] 05-06-2022 20:27-0400 Heart rate 77 /min DR ELYSSA BOLDEN MD [facility] 05-06-2022 20:27-0400 Respiratory rate 16 /min DR ELYSSA BOLDEN MD [facility] 05-06-2022 20:27-0400 Systolic Blood Pressure Non-Invasive [address] ELYSSA BOLDEN MD [facility] 04-16-2022 11:27-0500 Body temperature 98.01 [degF] Urg Kaufman Work Phone: [facility] 04-16-2022 11:27-0500 Body weight 51.71 kg Urg Kaufman Work Phone: [facility] 04-16-2022 11:27-0500 Diastolic blood pressure 67 mm[Hg] Urg Kaufman Work Phone: [facility] 04-16-2022 11:27-0500 Heart rate 80 /min Urg Kaufman Work Phone: [facility] 04-16-2022 11:27-0500 Respiratory rate 16 /min Urg Kaufman Work Phone: [facility] 04-16-2022 11:27-0500 SaO2% (BldA) [Mass fraction] 100 % Urg Kaufman Work Phone: [facility] 04-16-2022 11:27-0500 Systolic blood pressure 121 mm[Hg] Urg Kaufman Work Phone: [facility] 02-24-2022 13:51-0500 Diastolic Blood Pressure Non-Invasive [address] BAN ALVES MD [facility] 02-24-2022 13:51-0500 Heart rate 83 /min DR BAN ALVES MD [facility] 02-24-2022 13:51-0500 Respiratory rate 16 /min DR BAN ALVES MD [facility] 02-24-2022 13:51-0500 Systolic Blood Pressure Non-Invasive [address] BAN ALVES MD [facility] 02-24-2022 11:06-0500 Body temperature 97.88 [degF] DR BAN ALVES MD [facility] 02-24-2022 11:06-0500 Body weight [address] BAN ALVES MD [facility] 02-24-2022 11:06-0500 Diastolic Blood Pressure Non-Invasive [address] BAN ALVES MD [facility] 02-24-2022 11:06-0500 Heart rate 95 /min DR BAN ALVES MD [facility] 02-24-2022 11:06-0500 Respiratory rate 16 /min DR BAN ALVES MD [facility] 02-24-2022 11:06-0500 Systolic Blood Pressure Non-Invasive [address] BAN ALVES MD [facility] 02-13-2022 10:03-0500 Body temperature 99.14 [degF] DR ARAMIS GEORGE MD [facility] 02-13-2022 10:03-0500 Body weight [address] ARAMIS GEORGE MD [facility] 02-13-2022 10:03-0500 Diastolic Blood Pressure Non-Invasive [address] ARAMIS GEORGE MD [facility] 02-13-2022 10:03-0500 Heart rate 87 /min DR ARAMIS GEORGE MD [facility] 02-13-2022 10:03-0500 Respiratory rate 16 /min DR ARAMIS GEORGE MD [facility] 02-13-2022 10:03-0500 Systolic Blood Pressure Non-Invasive [address] ARAMIS GEORGE MD [facility] 11-19-2021 10:32-0400 Body temperature 97.7 [degF] J[facility]AL [facility] MASSEY [facility] 11-19-2021 10:32-0400 Body weight 54 kg JAMAAL [facility]ITAL[facility] MASSEY [facility] 11-19-2021 10:32-0400 Diastolic blood pressure 86 mm[Hg] JAMAAL CRUZ DO [facility] 11-19-2021 10:32-0400 Heart rate 81 /min JAMAAL FLORENTINOT DO [facility] 11-19-2021 10:32-0400 Respiratory rate 18 /min JAMAAL MCGHEEMOUNT [facility]ON [facility]OSPITALVickey DO [facility] 11-19-2021 10:32-0400 Systolic blood pressure 162 mm[Hg] JAMAAL CRUZ DO [facility] 09-11-2021 13:14-0400 Body weight 54.5 kg JAYJAY ALVES MD [facility] 09-11-2021 13:14-0400 Diastolic blood pressure 72 mm[Hg] JAYJAY ALVES MD [facility] 09-11-2021 13:14-0400 Heart rate 70 /min JAYJAY ALVES MD [facility] 09-11-2021 13:14-0400 Respiratory rate 16 /min JAYJAY ALVES MD [facility] 09-11-2021 13:14-0400 Systolic blood pressure 119 mm[Hg] JAYJAY ALVES MD [facility] 09-08-2021 20:30-0400 Body temperature 98.06 [degF] JAYJAY ALVES MD [facility] 09-08-2021 20:30-0400 Body weight 55.7 kg JAYJAY ALVES MD [facility] 09-08-2021 20:30-0400 Diastolic blood pressure 77 mm[Hg] JAYJAY ALVES MD [facility] 09-08-2021 20:30-0400 Heart rate 81 /min JAYJAY ALVES MD [facility] 09-08-2021 20:30-0400 Respiratory rate 18 /min JAYJAY ALVES MD [facility] 09-08-2021 20:30-0400 Systolic blood pressure 121 mm[Hg] JAYJAY ALVES MD [facility] 09-02-2021 13:36-0400 Diastolic blood pressure 69 mm[Hg] JAYJAY ALVES MD [address] 09-02-2021 13:36-0400 Heart rate 61 /min JAYJAY ALVES MD [address] [place] [address] 09-02-2021 13:36-0400 Respiratory rate 18 /min JAYJAY ALVES MD [address] 09-02-2021 13:36-0400 Systolic blood pressure 109 mm[Hg] JAYJAY ALVES MD [address] [place] [address] 09-02-2021 11:41-0400 Diastolic blood pressure 68 mm[Hg] JAYJAY ALVES MD [address] [place] [address] 09-02-2021 11:41-0400 Heart rate 66 /min JAYJAY ALVES MD [address] [place] [address] 09-02-2021 11:41-0400 Respiratory rate 16 /min JAYJAY ALVES MD [address] [place] [address] 09-02-2021 11:41-0400 Systolic blood pressure 119 mm[Hg] JAYJAY ALVES MD [address] [place] [address] 09-02-2021 10:18-0400 Body temperature 98.06 [degF] JAYJAY ALVES MD [address] [place] [address] 09-02-2021 10:18-0400 Body weight 55.5 kg JAYJAY ALVES MD [address] 09-02-2021 10:18-0400 Diastolic blood pressure 75 mm[Hg] JAYJAY ALVES MD [address] [place] [id number] 09-02-2021 10:18-0400 Heart rate 80 /min JAYJAY ALVES MD [address] [place] [address] 09-02-2021 10:18-0400 Respiratory rate 18 /min JAYJAY ALVES MD [address] [place] [id number] 09-02-2021 10:18-0400 Systolic blood pressure 122 mm[Hg] JAYJAY ALVES MD [facility] 07-21-2021 00:10-0400 Body temperature 97.52 [degF] DOM OROSCO MD [facility] 07-21-2021 00:10-0400 Diastolic blood pressure 61 mm[Hg] DOM OROSCO MD [facility] 07-21-2021 00:10-0400 Heart rate 82 /min DOM OROSCO MD [facility] 07-21-2021 00:10-0400 Mean blood pressure 84 mm[Hg] DOM OROSCO MD [facility] 07-21-2021 00:10-0400 Respiratory rate 16 /min DOM OROSCO MD [facility] 07-21-2021 00:10-0400 Systolic blood pressure 131 mm[Hg] DOM OROSCO MD [facility] 07-20-2021 15:10-0400 Body temperature 98.24 [degF] DOM OROSCO MD [facility] 07-20-2021 15:10-0400 Diastolic blood pressure 63 mm[Hg] DOM OROSCO MD [facility] 07-20-2021 15:10-0400 Heart rate 81 /min DOM OROSCO MD [facility] 07-20-2021 15:10-0400 Mean blood pressure 79 mm[Hg] DOM OROSCO MD [facility] 07-20-2021 15:10-0400 Respiratory rate 18 /min DOM OROSCO MD [facility] 07-20-2021 15:10-0400 Systolic blood pressure 111 mm[Hg] DOM OROSCO MD [facility] 07-20-2021 07:00-0400 Body temperature 98.6 [degF] DOM OROSCO MD [facility] 07-20-2021 07:00-0400 Diastolic blood pressure 78 mm[Hg] DOM OROSCO MD [facility] 07-20-2021 07:00-0400 Heart rate 58 /min DOM OROSCO MD [facility] 07-20-2021 07:00-0400 Mean blood pressure 92 mm[Hg] DOM OROSCO MD [facility] 07-20-2021 07:00-0400 Systolic blood pressure 119 mm[Hg] DOM OROSCO MD [facility] 07-18-2021 07:40-0400 Body height 157.5 cm DOM OROSCO MD [facility] 07-18-2021 07:40-0400 Body weight 68.2 kg DOM OROSCO MD [facility] 07-18-2021 07:40-0400 Body weight 27.49 kg/m2 DOM OROSCO MD [facility] 07-16-2021 14:15-0400 Body height 157.5 cm GIULIANO SHAFFER MD [facility] 07-16-2021 14:15-0400 Body temperature 97.52 [degF] GIULIANO SHAFFER MD [facility] 07-16-2021 14:15-0400 Body weight 68.2 kg GIULIANO SHAFFER MD [facility] 07-16-2021 14:15-0400 Body weight 27.49 kg/m2 GIULIANO SHAFFER MD [facility] 07-16-2021 14:15-0400 Diastolic blood pressure 79 mm[Hg] GIULIANO SHAFFER MD [facility] 07-16-2021 14:15-0400 Heart rate 106 /min GIULIANO SHAFFER MD [facility] 07-16-2021 14:15-0400 Mean blood pressure 95 mm[Hg] GIULIANO SHAFFER MD [facility] 07-16-2021 14:15-0400 Respiratory rate 20 /min GIUILANO SHAFFER MD [facility] 07-16-2021 14:15-0400 Systolic blood pressure 127 mm[Hg] GIULIANO SHAFFER MD [facility] 07-16-2021 09:55-0400 Body temperature 98.24 [degF] GIULIANO SHAFFER MD [facility] 07-16-2021 09:55-0400 Diastolic blood pressure 74 mm[Hg] GIULIANO SHAFFER MD [facility] 07-16-2021 09:55-0400 Heart rate 87 /min GIULIANO SHAFFER MD [facility] 07-16-2021 09:55-0400 Mean blood pressure 91 mm[Hg] GIULIANO SHAFFER MD [facility] 07-16-2021 09:55-0400 Respiratory rate 18 /min GIULIANO SHAFFER MD [facility] 07-16-2021 09:55-0400 Systolic blood pressure 124 mm[Hg] GIULIANO SHAFFER MD [facility] 07-16-2021 09:53-0400 Body height 157.5 cm GIULIANO SHAFFER MD [facility] 07-16-2021 09:53-0400 Body weight 68.5 kg GIULIANO SHAFFER MD [facility] 07-16-2021 09:53-0400 Body weight 27.61 kg/m2 GIULIANO SHAFFER MD [facility] 07-07-2021 12:02-0400 Body temperature 98.6 [degF] GIFTY WRAY MD [facility] 07-07-2021 12:02-0400 Diastolic blood pressure 73 mm[Hg] GIFTY WRAY MD [facility] 07-07-2021 12:02-0400 Heart rate 77 /min GIFTY WRAY MD [facility] 07-07-2021 12:02-0400 Mean blood pressure 91 mm[Hg] GIFTY WRAY MD [facility] 07-07-2021 12:02-0400 Respiratory rate 18 /min GIFTY WRAY MD [facility] 07-07-2021 12:02-0400 Systolic blood pressure 127 mm[Hg] GIFTY WRAY MD [facility] 07-07-2021 11:57-0400 Body height 157.5 cm GIFTY WRAY MD [facility] 07-07-2021 11:57-0400 Body weight 68 kg GIFTY WRAY MD [facility] 07-07-2021 11:57-0400 Body weight 27.41 kg/m2 GIFTY WRAY MD [facility] 06-22-2021 16:16-0400 Diastolic blood pressure 72 mm[Hg] DR ARAMIS GEORGE MD [facility] 06-22-2021 16:16-0400 Heart rate 70 /min DR ARAMIS GEORGE MD [facility] 06-22-2021 16:16-0400 Respiratory rate 18 /min DR ARAMIS GEORGE MD [facility] 06-22-2021 16:16-0400 Systolic blood pressure 151 mm[Hg] DR ARAMIS GEORGE MD [facility] 06-22-2021 14:43-0400 Body temperature 98.06 [degF] DR ARAMIS GEORGE MD [facility] 06-22-2021 14:43-0400 Body weight 66.[address] ARAMIS GEORGE MD [facility] 06-22-2021 14:43-0400 Diastolic blood pressure 78 mm[Hg] DR ARAMIS GEORGE MD [facility] 06-22-2021 14:43-0400 Heart rate 101 /min DR ARAMIS GEORGE MD [facility] 06-22-2021 14:43-0400 Respiratory rate 18 /min DR ARAMIS GEORGE MD [facility] 06-22-2021 14:43-0400 Systolic blood pressure 119 mm[Hg] DR ARAMIS GEORGE MD [facility] 06-21-2021 21:39-0400 Body height 157.5 cm KYAE VINICIUS DO [facility] 06-21-2021 21:39-0400 Body weight 65.9 kg KAYE VINICIUS DO [facility] 06-21-2021 21:39-0400 Body weight 26.57 kg/m2 KAYE VINICIUS DO [facility] 06-21-2021 21:36-0400 Body temperature 98.42 [degF] KAYE VINICIUS DO [facility] 06-21-2021 21:36-0400 Diastolic blood pressure 72 mm[Hg] KAYE VINICIUS DO [facility] 06-21-2021 21:36-0400 Heart rate 118 /min KAYE VINICIUS DO [facility] 06-21-2021 21:36-0400 Mean blood pressure 87 mm[Hg] KAYE VINICIUS DO [facility] 06-21-2021 21:36-0400 Respiratory rate 18 /min KAYE VINICIUS DO [facility] 06-21-2021 21:36-0400 Systolic blood pressure 116 mm[Hg] KAYE VINICIUS DO [facility] 06-15-2021 15:57-0400 Body temperature 98.06 [degF] JOSÉ MIGUEL ARTHUR MD [facility] 06-15-2021 15:57-0400 Diastolic blood pressure 64 mm[Hg] JOSÉ MIGUEL ARTHUR MD [facility] 06-15-2021 15:57-0400 Heart rate 94 /min JOSÉ MIGUEL ARTHUR MD [facility] 06-15-2021 15:57-0400 Mean blood pressure 81 mm[Hg] JOSÉ MIGUEL ARTHUR MD [facility] 06-15-2021 15:57-0400 Respiratory rate 14 /min JOSÉ MIGUEL ARTHUR MD [facility] 06-15-2021 15:57-0400 Systolic blood pressure 114 mm[Hg] JOSÉ MIGUEL ARTHUR MD [facility] 06-15-2021 15:53-0400 Body height 157.5 cm JOSÉ MIGUEL ARTHUR MD [facility] 06-15-2021 15:53-0400 Body weight 65.9 kg JOSÉ MIGUEL ARTHUR MD [facility] 06-15-2021 15:53-0400 Body weight 26.57 kg/m2 JOSÉ MIGUEL ARTHUR MD [facility] 05-21-2021 08:35-0400 Body temperature 98.24 [degF] KILLIAN GOOD MD [facility] 05-21-2021 08:35-0400 Diastolic blood pressure 59 mm[Hg] KILLIAN GOOD MD [facility] 05-21-2021 08:35-0400 Heart rate 89 /min KILLIAN GOOD MD [facility] 05-21-2021 08:35-0400 Mean blood pressure 77 mm[Hg] KILLIAN GOOD MD [facility] 05-21-2021 08:35-0400 Respiratory rate 18 /min KILLIAN GOOD MD [facility] 05-21-2021 08:35-0400 Systolic blood pressure 113 mm[Hg] KILLIAN GOOD MD [facility] 05-20-2021 23:05-0400 Body height 157.5 cm JOSÉ MIGUEL ARTHUR MD [facility] 05-20-2021 23:05-0400 Body temperature 98.24 [degF] JOSÉ MIGUEL ARTHUR MD [facility] 05-20-2021 23:05-0400 Body weight 63.6 kg JOSÉ MIGUEL ARTHUR MD [facility] 05-20-2021 23:05-0400 Body weight 25.64 kg/m2 JOSÉ MIGUEL ARTHUR MD [facility] 05-20-2021 23:05-0400 Diastolic blood pressure 54 mm[Hg] JOSÉ MIGUEL ARTHUR MD [facility] 05-20-2021 23:05-0400 Heart rate 76 /min JOSÉ MIGUEL ARTHUR MD [facility] 05-20-2021 23:05-0400 Mean blood pressure 68 mm[Hg] JOSÉ MIGUEL ARTHUR MD [facility] 05-20-2021 23:05-0400 Respiratory rate 16 /min JOSÉ MIGUEL ARTHUR MD [facility] 05-20-2021 23:05-0400 Systolic blood pressure 95 mm[Hg] JOSÉ MIGUEL ARTHUR MD [facility] 05-19-2021 11:59-0400 Body temperature 98.42 [degF] JULIANNA MCCLAIN MD [facility] 05-19-2021 11:59-0400 Diastolic blood pressure 69 mm[Hg] JULIANNA MCCLAIN MD [facility] 05-19-2021 11:59-0400 Heart rate 98 /min JULIANNA MCCLAIN MD [facility] 05-19-2021 11:59-0400 Mean blood pressure 77 mm[Hg] JULIANNA MCCLAIN MD [facility] 05-19-2021 11:59-0400 Respiratory rate 18 /min JULIANNA MCCLAIN MD [facility] 05-19-2021 11:59-0400 Systolic blood pressure 94 mm[Hg] JULIANNA MCCLAIN MD [facility] 05-19-2021 11:53-0400 Body height 157.5 cm JULIANNA MCCLAIN MD [facility] 05-19-2021 11:53-0400 Body weight 62 kg JULIANNA MCCLAIN MD [facility] 05-19-2021 11:53-0400 Body weight 24.99 kg/m2 JULIANNA MCCLAIN MD [facility] 05-09-2021 16:38-0400 Diastolic blood pressure 54 mm[Hg] JULIANNA BUCK MD [facility] 05-09-2021 16:38-0400 Heart rate 97 /min JULIANNA BUCK MD [facility] 05-09-2021 16:38-0400 Respiratory rate 16 /min JULIANNA BUCK MD [facility] 05-09-2021 16:38-0400 Systolic blood pressure 106 mm[Hg] JULIANNA BUCK MD [facility] 05-09-2021 15:00-0400 Body temperature 97.88 [degF] JULAINNA BUCK MD [facility] 05-09-2021 15:00-0400 Body weight 63.4 kg JULAINNA BUCK MD [facility] 05-09-2021 15:00-0400 Diastolic blood pressure 65 mm[Hg] JULIANNA BUCK MD [facility] 05-09-2021 15:00-0400 Heart rate 103 /min JULIANNA BUCK MD [facility] 05-09-2021 15:00-0400 Systolic blood pressure 115 mm[Hg] JULIANNA BUCK MD [facility] 05-03-2021 13:25-0400 Respiratory rate 16 /min JOSÉ MIGUEL ARTHUR MD [facility] 05-03-2021 12:09-0400 Body height 157.5 cm JOSÉ MIGUEL ARTHUR MD [facility] 05-03-2021 12:09-0400 Body temperature 98.6 [degF] JOSÉ MIGUEL ARTHUR MD [facility] 05-03-2021 12:09-0400 Body weight 63.2 kg JOSÉ MIGUEL ARTHUR MD [facility] 05-03-2021 12:09-0400 Body weight 25.48 kg/m2 JOSÉ MIGUEL ARTHUR MD [facility] 05-03-2021 12:09-0400 Diastolic blood pressure 63 mm[Hg] JOSÉ MIGUEL ARTHUR MD [facility] 05-03-2021 12:09-0400 Heart rate 92 /min JOSÉ MIGUEL ARTHUR MD [facility] 05-03-2021 12:09-0400 Mean blood pressure 81 mm[Hg] JOSÉ MIGUEL ARTHUR MD [facility] 05-03-2021 12:09-0400 Respiratory rate 16 /min JOSÉ MIGUEL ARTHUR MD [facility] 05-03-2021 12:09-0400 Systolic blood pressure 118 mm[Hg] JOSÉ MIGUEL ARTHUR MD [facility] 04-01-2021 01:17-0500 Body temperature 97.52 [degF] STAR PINEDA MD [facility] 04-01-2021 01:17-0500 Body weight 62.2 kg STAR PINEDA MD [facility] 04-01-2021 01:17-0500 Diastolic blood pressure 66 mm[Hg] STAR PINEDA MD [facility] 04-01-2021 01:17-0500 Heart rate 115 /min STAR PINEDA MD [facility] 04-01-2021 01:17-0500 Respiratory rate 20 /min STAR PINEDA MD [facility] 04-01-2021 01:17-0500 Systolic blood pressure 136 mm[Hg] STAR PINEDA MD [facility] 03-27-2021 09:00-0500 Diastolic blood pressure 66 mm[Hg] KAYE MORGANKA DO [facility] 03-27-2021 09:00-0500 Heart rate 70 /min KAYE TERESAESKA DO [facility] 03-27-2021 09:00-0500 Mean blood pressure 79 mm[Hg] KAYE DURESKA DO [facility] 03-27-2021 09:00-0500 Systolic blood pressure 105 mm[Hg] KAYE DURESKA DO [facility] 03-27-2021 07:32-0500 Body temperature 98.42 [degF] KAYE DURESKA DO [facility] 03-27-2021 07:32-0500 Diastolic blood pressure 53 mm[Hg] KAYE DURESKA DO [facility] 03-27-2021 07:32-0500 Heart rate 73 /min KAYE DURESKA DO [facility] 03-27-2021 07:32-0500 Respiratory rate 17 /min KAYE DURESKA DO [facility] 03-27-2021 07:32-0500 Systolic blood pressure 91 mm[Hg] KAYE DURESKA DO [facility] 03-27-2021 01:25-0500 Diastolic blood pressure 59 mm[Hg] KAYE DURESKA DO [facility] 03-27-2021 01:25-0500 Heart rate 76 /min KAYE DURESKA DO [facility] 03-27-2021 01:25-0500 Respiratory rate 18 /min KAYE DURESKA DO [facility] 03-27-2021 01:25-0500 Systolic blood pressure 113 mm[Hg] KAYE DURESKA DO [facility] 03-25-2021 21:06-0500 Body temperature 97.88 [degF] KAYE DURESKA DO [facility] 03-25-2021 21:06-0500 Mean blood pressure 86 mm[Hg] KAYE DURESKA DO [facility] 03-25-2021 21:06-0500 Reason For Taking VItal Signs KAYE TERESAESKA DO [facility] 03-25-2021 13:53-0500 Body temperature 98.06 [degF] KAYE DURESKA DO [facility] 03-25-2021 04:47-0500 Reason For Taking VItal Signs KAYE PORTER DO [facility] 03-24-2021 14:10-0500 Reason For Taking VItal Signs KAYE PORTER DO [facility] 03-24-2021 01:34-0500 Heart rate 89 /min KAYE PORTER DO [facility] 03-23-2021 18:38-0500 Heart rate 86 /min KAYE PORTER DO [facility] 03-23-2021 12:30-0500 Heart rate 86 /min KAYE PORTER DO [facility] 03-22-2021 22:01-0500 Mean blood pressure 60 mm[Hg] KAYE PORTER DO [facility] 03-11-2021 20:45-0500 Diastolic blood pressure 58 mm[Hg] PETER SHANE MD [facility] 03-11-2021 20:45-0500 Heart rate 78 /min PETER SHANE MD [facility] 03-11-2021 20:45-0500 Mean blood pressure 79 mm[Hg] PETER SHANE MD [facility] 03-11-2021 20:45-0500 Respiratory rate 15 /min PETER SHANE MD [facility] 03-11-2021 20:45-0500 Systolic blood pressure 120 mm[Hg] PETER SHANE MD [facility] 03-11-2021 20:33-0500 Body height 157.5 cm PETER SHANE MD [facility] 03-11-2021 20:33-0500 Body weight 58.6 kg PETER SHANE MD [facility] 03-11-2021 20:33-0500 Body weight 23.62 kg/m2 PETER SHANE MD [facility] 03-11-2021 20:30-0500 Body temperature 97.7 [degF] PETER SHANE MD [facility] 01-31-2021 10:04-0500 Body temperature 98.78 [degF] MARIA L JAIME PA-C [facility] 01-31-2021 10:04-0500 Body weight 57 kg MARIA L JAIME PA-C [facility] 01-31-2021 10:04-0500 Diastolic blood pressure 67 mm[Hg] MARIA L JAIME PA-C [facility] 01-31-2021 10:04-0500 Heart rate 72 /min MARIA L JAIME PA-C [facility] 01-31-2021 10:04-0500 Respiratory rate 18 /min MARIA L JAIME PA-C [facility] 01-31-2021 10:04-0500 Systolic blood pressure 103 mm[Hg] MARIA L SANDOVAL PA-C [facility] Encounters Encounter Date Encounter Type Care Provider Facility Start: 10-17-2024 End: 10-17-2024 Emergency department patient visit Melissa Woodruff Facility:[facility] Start: 10-10-2024 End: 10-10-2024 ambulatory Melissa Woodruff Facility:[facility] Start: 09-26-2024 ambulatory Melissa Woodruff Facility :[facility] Start: 09-11-2024 Encounter for gynecological examination (general) (routine) without abnormal findings [place] Maria D [facility] Start: 09-11-2024 End: 09-12-2024 ambulatory Melissa Woodruff Facility:[facility] Start: 09-10-2024 End: 09-10-2024 ambulatory Melissa Woodruff Facility:[facility] Start: 09-10-2024 End: 09-10-2024 ambulatory Melissa Dick Facility:[facility] Start: 08-15-2024 End: 08-15-2024 Emergency department patient visit Melissa Dick Facility:[facility] Start: 08-14-2024 End: 08-14-2024 Emergency department patient visit Alex Blood Facility:[facility] Start: 07-29-2024 End: 07-29-2024 ambulatory Wendy Zamora Facility:[facility] Start: 07-28-2024 End: 07-28-2024 ambulatory Getachew CALDERON Facility:[facility] Start: 07-02-2024 End: 07-02-2024 Emergency department patient visit Melissa Woodruff Facility:[facility] Start: 06-03-2024 End: 06-03-2024 ambulatory No Primary Care Physician Facility:[facility] Start: 06-03-2024 End: 06-03-2024 ambulatory Melissa Dick Facility:[facility] Start: 03-18-2024 End: 03-18-2024 Telephone encounter Kaley Carl [employer] SYSTEMS ENGINEER.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 DETECTIVE Work Phone: [facility] Comment on above: Results Start: 03-17-2024 End: 03-17-2024 ambulatory Facility:[facility] Start: 03-17-2024 End: 03-17-2024 Patient encounter procedure Ra Philip [employer]ION[employer] SYSTEMS ENGINEER.STATION DETECTIVE Work Phone: [facility] Comment on above: Sore throat (Primary Dx); URI, acute Start: 10-24-2023 End: 10-24-2023 ambulatory Facility:[facility] Start: 10-24-2023 End: 10-24-2023 Office outpatient visit 15 minutes Rodrigue Paul [employer]IONICS SYSTEMS ENGINEER.STATION DETECTIVE Work Phone: [facility] Comment on above: Acute otitis media, right (Primary Dx) Start: 09-10-2023 End: 09-14-2023 ambulatory ALO LO MD Facility:[facility] Start: 03-16-2023 End: 03-16-2023 ambulatory LAURIE ERVIN CNP Facility:[facility] Start: 03-16-2023 End: 03-16-2023 Patient encounter procedure LAURIE ERVIN STATION DETECTIVE [facility] Start: 11-20-2022 End: 11-24-2022 ambulatory VADIM HARRIS MD Facility:[facility] Start: 11-20-2022 End: 11-24-2022 ambulatory VADIM HARRIS MD Facility:[facility] Start: 11-16-2022 End: 11-16-2022 Emergency department patient visit [facility] Facility:A Start: 11-14-2022 End: 11-14-2022 Emergency department patient visit JAYJAY ALVES MD [facility] Start: 05-06-2022 End: 05-06-2022 Emergency department patient visit DR ELYSSA BOLDEN MD [facility] Start: 04-16-2022 End: 04-16-2022 ambulatory DENISHA KUMAR Facility:[id number] Start: 04-16-2022 End: 04-16-2022 Patient encounter procedure [facility] Work Phone: [facility] Comment on above: Odontalgia (Primary Dx) Start: 02-24-2022 End: 02-24-2022 Emergency department patient visit DR BAN ALVES MD [facility] Start: 02-13-2022 End: 02-13-2022 Emergency department patient visit DR ARAMIS GEORGE MD [facility] Start: 11-19-2021 End: 11-19-2021 Emergency department patient visit JAMAAL CHADDVickey MASSEY [facility] Start: 2021 End: 2021 Emergency department patient visit DENISHA KUMAR Facility:[id number] Start: 09-11-2021 End: 09-11-2021 Emergency department patient visit JAYJAY ALVES MD [facility] Start: 09-08-2021 End: 09-09-2021 Emergency department patient visit JAYJAY ALVES MD [facility] Start: 09-02-2021 End: 09-02-2021 Emergency department patient visit JAYJAY ALVES MD [facility] Start: 08-18-2021 Admission to [facility] Start: 08-18-2021 ambulatory Mounika BENAVIDEZ [facility] Comment on above: Psychiatric Problem Start: 08-18-2021 End: 08-18-2021 Emergency department patient visit ELYSSA LANCE Facility:[id number] Start: 07-18-2021 End: 07-21-2021 Evaluation and management of inpatient DOM OROSCO MD [facility] Start: 07-16-2021 End: 07-16-2021 SAME DAY STAY GIULIANO SHAFFER MD [facility] Start: 07-16-2021 End: 07-16-2021 SAME DAY STAY GIULIANO SHAFFER MD [facility] Start: 07-07-2021 End: 07-07-2021 SAME DAY STAY GIFTY WRAY MD [facility] Start: 06-22-2021 End: 06-22-2021 Emergency department patient visit DR ARAMIS GEORGE MD [facility] Start: 06-21-2021 End: 06-21-2021 SAME DAY STAY KAYE COLVIN DO [facility] Start: 06-15-2021 End: 06-15-2021 SAME DAY STAY JOSÉ MIGUEL ARTHUR MD [facility] Start: 05-22-2021 End: 05-22-2021 Subsequent hospital visit by physician Hoang Sweeney Work Phone: [facility] Comment on above: REQUESTING TEST Start: 05-21-2021 End: 05-21-2021 SAME DAY STAY KILLIAN GOOD MD [facility] Start: 05-20-2021 End: 05-21-2021 SAME DAY STAY JOSÉ IMGUEL ARTHUR MD [facility] Start: 05-19-2021 End: 05-19-2021 SAME DAY STAY JULIANNA MCCLAIN MD [facility] Start: 05-09-2021 End: 05-09-2021 Emergency department patient visit JULIANNA BUCK MD [facility] Start: 05-03-2021 End: 05-03-2021 SAME DAY STAY JOSÉ MIGUEL ARTHUR MD [facility] Start: 04-01-2021 End: 04-01-2021 Emergency department patient visit STAR PINEDA MD [facility] Start: 03-21-2021 End: 03-27-2021 Emergency department patient visit KAYE PORTER DO [facility] Start: 03-11-2021 End: 03-11-2021 SAME DAY STAY PETER SHANE MD [facility] Start: 02-22-2021 Patient encounter procedure Hoang Sweeney MD Work Phone: [facility] Start: 02-22-2021 Progress Note Hoang Sweeney MD Work Phone: [facility] Start: 01-31-2021 End: 01-31-2021 Emergency department patient visit MARIA L SANDOVAL PA-C [facility] Start: 11-22-2020 Patient encounter procedure Hoang Sweeney MD Work Phone: [facility] Start: 11-22-2020 Progress Note Hoang Sweeney MD Work Phone: [facility] Start: 09-27-2020 Patient encounter procedure Nishi Munoz DO Work Phone: [facility] Start: 09-27-2020 Progress Note Nishi Edmondosmany Hernandezwade hn DO Work Phone: [facility] Start: 06-12-2020 Patient encounter procedure [facility] Provider [facility] Start: 06-12-2020 Progress Note [facility] Provider [facility] Start: 02-18-2020 Patient encounter procedure Hoang Sweeney MD Work Phone: [facility] Start: 02-18-2020 Progress Note Hoang Sweeney MD Work Phone: [facility] Start: 12-05-2019 Patient encounter procedure Hoang Sweeney MD Work Phone: [facility] Start: 12-05-2019 Progress Note Hoang Sweeney MD Work Phone: [facility] Procedures Date Procedure Procedure Detail Performing Clinician Start: 03-17-2024 STREP A MOLECULAR (POC) Ra Cantu APRN.STATION DETECTIVE Work Phone: Start: 04-25-2016 Adult depression screening assessment Hoang Sweeney Work Phone: Plan of Treatment Date Care Activity Detail Author Start: 05-03-2031 Urine microalbumin profile DTaP,Tdap,Td Vaccine (3 - Td or Tdap) [facility] Start: 10-14-2023 Covid-19 Vaccine ( season) Covid-19 Vaccine ( season) [facility] Start: 10-14-2023 Covid-19 Vaccine ( season) Covid-19 Vaccine ( season) [facility] Start: 10-14-2023 Influenza vaccination Influenza Vacc ine (#1) [facility] Start: 02-12-2022 DEPRESSION ASSESSMENT DEPRESSION ASS ESSMENT [facility] Start: 01-14-2022 COVID-19 VACCINE (2 - Moderna series) COVID-19 VACCINE (2 - Moderna series) [facility] Start: 10-13-2021 [facility] 10-13-2020 Influenza vaccination INFLUENZA (#1) [facility] Start: 2018 PAP TESTING PAP TESTING [facility] Start: 2018 Screening for malign ant neoplasm of cervix Cervical Cancer Screening [facility] Start: 04-25-2017 Adult depression screening assessment DEPRESSION SCREENING [facility] Start: 2016 Hepatitis B Vaccine (1 of 3 - 19+ 3-dose series) Hepatitis B Vaccine (1 of 3 - 19+ 3-dose series) [facility] Start: 2016 Urine microalbumin profile DTAP,TDAP,TD (1 - Tdap) [facility] Start: 10-03-2015 Anxiety Screening Anxiety Screening [facility] Start: 10-03-2015 CHLAMYDIA SCREENING (18-24) CHLAMYDIA SCREENING (18-24) [facility] Start: 10-03-2015 Depression Screening Depression Scre ening [facility] Start: 10-03-2015 GC (GONORRHEA) SCREE RUSSEL (18-24) GC (GONORRHEA) SCREENING (18-24) [facility] Start: 10-03-2015 HEPATITIS C SCREENING HEPATITIS C [facility] Start: 10-03-2015 Hepatitis C screening Hepatitis C [facility] Start: 10-03-2015 HIV SCREENING HIV SCREENING [facility] Start: 10-03-2015 HIV screening HIV Screening [facility] Start: 2012 HPV Vaccine (1 - 3-d ose series) HPV Vaccine (1 - 3-dose series) [facility] Start: 10-03-2011 PEDS TO ADULT TRANSI TION ANNUAL ASSESSMENT PEDS TO ADULT TRANSITION ANNUAL ASSESSMENT [facility] Start: 2009 PEDS TO ADULT TRANSI TION INITIAL DISCUSSION PEDS TO ADULT TRANSITION INITIAL DISCUSSION [facility] Start: 2008 HPV VACCINE (1 - 2-d ose series) HPV VACCINE (1 - 2-dose series) [facility] Start: 10-03-2007 MENINGOCOCCAL B: Consider based on risk (1 of 2 - Risk Bexsero 2-dose series) MENINGOCOCCAL B: Consider based on risk (1 of 2 - Risk Bexsero 2-dose series) [facility] Start: 10-03-2003 PNEUMOCOCCAL (1 - PCV) PNEUMOCOCCAL (1 - PCV) [facility] Start: 2002 COVID-19 VACCINE (#1) COVID-19 VACCI NE (#1) [facility] Start: 2002 COVID-19 VACCINE (1) COVID-19 VACCIN E (1) [facility] Start: 04-04-1998 COVID-19 VACCINE (#1) COVID-19 VACCI NE (#1) [facility] Start: 1997 HEPATITIS B (1 of 3 - 3-dose series) HEPATITIS B (1 of 3 - 3-dose series) [facility] COVID & INFLUENZA A/ B & RSV PCR, ROUTINE COVID & INFLUENZA A/B & RSV PCR, ROUTINE Microbiology Routine URI, acute Ordered: 03/17/2024 [facility] Work Phone: Comment on above: Ordered: 03/17/2024 Immunizations Immunization Date Immunization Notes Care Provider Fa juancarlos 12-17-2021 influenza virus vacc ine, unspecified formulation Rodrigue Paul APRN.STATION DETECTIVE Work Phone: [facility] 01-24-2021 tetanus toxoid, redu warren diphtheria toxoid, and acellular pertussis vaccine, adsorbed MARIA L SANDOVAL PA-C [facility] 03-05-2015 meningococcal polysaccharide (groups A, C, Y and W-135) diphtheria toxoid conjugate vaccine (MCV4P) KAYE PORTER DO [facility] 12-09-2013 influenza virus vacc ine, unspecified formulation KAYE PORTER DO [facility] 11-06-2012 influenza virus vacc ine, unspecified formulation KAYE PORTER DO [facility] 12-13-2011 influenza virus vacc ine, unspecified formulation KAYE PORTER DO [facility] Payers Date Payer Category Payer Medicare MMO MEDICARE MMO MEDADVANTAGE O [id number] 2024-Present [phone] [address] [place] [address] O [id number] 2024 Medicaid [id number] 2024 Unknown [id number] 2024 Self-pay 2022 Medicaid [id number] 2022 Medicaid [id number] 2020 Medicaid [employer] MED[employer] ID [employer] MEDICAID [id number] 2020-Present [phone] [address] [place] [address] Medicaid [id number] 2020 Medicaid [id number] 2018 Unknown [employer] [id number] 2018-Present [phone] [address] [address] [place] [address] PPO [id number] 1997 Unknown [id number] [id number] 1997 Unknown 1941 [id number] 1997 Unknown [id number] [id number] 1997 Unknown [id number] 2.16840.1.684227.3.579.2.627 1997 Unknown [id number] 2.16840.1.918822.3.579.2.627 1997 Unknown [id number] 2.16.840.1.087015.3.579.2.627 Unknown [id number] 2.16840.1.701251.3.579.2.462 Unknown [id number] 2.16.840.1.113045.3.579.2.462 Unknown [id number] 2.16.840.1.194847.3.579.2.462 Unknown [id number] 2.16.840.1.478336.3.579.2.462 Unknown [id number] 2.16.840.1.799406.3.579.2.462 Unknown [id number] 2.16.840.1.631625.3.579.2.462 Unknown [id number] 2.16.840.1.051517.3.579.2.462 Unknown [id number] 2.16.840.1.066585.3.579.2.462 Unknown [id number] 2.16.840.1.639492.3.579.2.462 Unknown [id number] 2.16.840.1.337210.3.579.2.462 Unknown [id number] 2.16.840.1.744904.3.579.2.462 Unknown [id number] 2.16.840.1.074099.3.579.2.462 Unknown [id number] 2.16.840.1.668254.3.579.2.462 Unknown [id number] 2.16.840.1.364724.3.579.2.462 Social History Date Type Detail Facility Start: 01-01-2021 Never smoked t obacco (finding) [facility] Sex Assigned At [facility] Start: 04-25-2016 End: 02-11-2018 Tobacco smoking status ARIS Smokes tobacco daily [facility] History of tobacco use Cigarette Smoker [facility] Start: 04-25-2016 End: 04-16-2022 Cigarettes smoked current (pack per day) - Reported 0.25 [facility] Start: 04-25-2016 End: 10-24-2023 Tobacco use and exposure Smokeless tobacco non-user [facility] Start: 04-05-2018 End: 10-24-2023 Alcohol intake Current non-drinker of alcohol (finding) [facility] Start: 1995 Sex Assigned At Not on file [facility] Start: 08-08-2021 End: 08-18-2021 Exposure to SARS-CoV-2 (event) Not sure [facility] Start: 10-27-2021 End: 10-24-2023 Tobacco smoking status Ex-smoker (finding) [facility] History of tobacco use Current smoker [facility] Start: 04-16-2022 End: 10-24-2023 Tobacco use panel [facility] Adult Depression Screening Assessment 0 [facility] Functional Status Date Assessment Result Facility 11-14-2022 Functional Status Standard Safet y ID band on, Call device within reach, Bed in low position, Wheels locked, Phone within reach, personal items within reach, Assistive devices within reach, Safety level maintained, Hazards removed from floor [facility] 05-06-2022 Functional Status ID band on, Safety level maintained [facility] 02-24-2022 Functional Status ID band on, Call device within reach, Bed in low position, Wheels locked, Phone within reach, personal items within reach, Assistive devices within reach, Safety level maintained, Hazards removed from floor [facility] 11-19-2021 Functional Status Standard Safet y ID band on, Call device within reach, Bed in low position, Wheels locked, Upper/Half-Length side-rails up, Bedside Cart Locked, Safety level maintained [facility] 07-21-2021 Functional Status [facility] in [facility] 07-21-2021 Functional Status [facility] 07-21-2021 Functional Status [facility] 07-21-2021 Functional Status [facility] 07-21-2021 Functional Status [facility] 07-21-2021 Functional Status [facility] 07-20-2021 Functional Status [facility] 07-19-2021 Functional Status [facility] 07-18-2021 Functional Status Living Situati on Home independently [facility] 07-18-2021 Functional Status [facility] 07-16-2021 Functional Status Independent [facility] 06-22-2021 Functional Status [facility] 06-22-2021 Functional Status [facility] 06-21-2021 Functional Status [facility] 05-21-2021 Functional Status [facility] 05-20-2021 Functional Status [facility] Mental Status Date Assessment Result Facility 11-14-2022 Mental Status Orientation Oriented x 4 [facility] 05-06-2022 Mental Status Oriented x 4 [facility] 02-24-2022 Mental Status Oriented x 4 [facility] 02-13-2022 Mental Status Oriented x 4 [facility] 11-19-2021 Mental Status Orientation Oriented x 4 [facility] 11-19-2021 Mental Status [facility] 07-21-2021 Mental Status Orientation Oriented x 4 [facility] 07-16-2021 Mental Status Orientation Oriented x 4 [facility] 07-16-2021 Mental Status Orientation Oriented x 4 [facility] 06-22-2021 [facility] 06-21-2021 Mental [facility] 05-21-2021 Mental Status [facility] Clinical Notes 12-05-2019 to 03-18-2024 Telephone Encounter - Ofe Frye LPN - 03/18/2024 7:47 AM ESTTelephone Encounter - Ofe Frye LPN - 03/18/2024 7:47 AM Ra Aguilar APRN.DEJUAN - 03/17/2024 10:21 AM EST Note Date & Type Note Facility 03-18-2024 Telephone encounter Note Formatting of this note might be differe nt from the original. Patient notified.Ofe Frye LPN [facility] 03-18-2024 Miscellaneous Notes Formatting of this note might be differe nt from the original. Patient notified.Ofe Frye LPN Please notify patient she was positive for influenza A. Continue Tamiflu as prescribed * Seek medical care immediately, call 911, go to ER if you have chest pain, difficulty breathing, shortness of breath, inability to swallow. documented in this encounter [facility] 03-18-2024 Telephone encounter Note Formatting of this note might be differe nt from the original. Please notify patient she was positive for influenza A. Continue Tamiflu as prescribed * Seek medical care immediately, call 911, go to ER if you have chest pain, difficulty breathing, shortness of breath, inability to swallow. [facility] Work Phone: 03-17-2024 Note HNO ID: [id number] Author: RA CANTU APRN.CNP Service: ? Author [...] Patient agreeable to treatment plan. Ra Cantu APRN.[facility] 03-17-2024 History of Present illness Narrative Formatting [...] Patient agreeable to treatment plan. Ra Cantu APRN.STATION DETECTIVE documented in this encounter [facility] 10-24-2023 Note HNO ID: [id number] Author: RODRIGUE PAUL APRN.STATION DETECTIVE Service: ? Author Type: Nurse Practitioner Type: Progress Notes Filed: 10/24/2023 09:37 Note Text: Patient presents with: Ear Infection: RIGHT ear x 3 weeks SUBJECTIVE: Ronna Aguayo is a 28 year old year old female who presents for the past 3 weeks with symptoms that are:gradually worsening. Treated for AOM 10 days ago at in [place] - amoxicillin x 7d She reports her [...] if symptoms persist or worsen. Rodrigue Paul, DAISY.[facility] 10-24-2023 History of Present illness Narrative Formatting of this note is different fro m the original. Patient presents with: Ear Infection: RIGHT ear x 3 weeks SUBJECTIVE: Ronna Aguayo is a 28 year old year old female who presents for the past 3 weeks with symptoms that are:gradually worsening. Treated for AOM 10 days ago at in [place] - amoxicillin x 7d She reports her [...] Rodrigue Paul APRN.CNP documented in this encounter [facility] 10-24-2023 Instructions Rodrigue Paul APRN.CNP - 10/24/2023 [...] even if the symptoms go away. 2. Sjuq-wpi-eyjzfec pain medication may be taken or other [...] the medicine prescribed. documented in this encounter [facility] 11-21-2022 Note . MICRO - Microbiology PROCEDURE: [...] Locations *1: This test was performed at: [facility], [address] [place] [address], [address] , [facility] 11-14-2022 Hospital Discharge instructions Patient Education 11/14/2022 [...] spread to other parts of the body. [phone] [employer]. [address] [place] [address]. All rights reserved. This information is not intended as a substitute for professional medical care. Always follow your healthcare professional's instructions. Follow Up Care 11/14/2022 09:31:44 With:[facility] Address: [address] [place] [address]- When:3-7 days [facility] 11-14-2022 Emergency department Discharge summary Discharge Instructions Thank you for allowing [facility] to assist you with your healthcare needs. The following is important discharge information regarding your hospital visit. Diagnosis from Today's Visit Chest pain with deep breathing Ovarian cyst rupture UTI (urinary tract infection) What to Do Next Instructions from Your Care Team No qualifying data available. Post Acute Orders No qualifying data available. You Need to Schedule the Following Appointments Follow Up with [facility] When Within 3-7 days Where: [address] [place] [address]- Allergies NKA Medications Please ask your primary [...] spread to other parts of the body. [phone] [employer]. [address] [place] [address]. All rights reserved. This information is not intended as a substitute for professional medical care. Always follow your healthcare professional's instructions. Additional Information VACCINATE! IT SAVES LIVES! Members of the community who have not yet received the COVID-19 vaccine and would like to receive it can visit one of [facility] vaccine clinics. There are many vaccine clinic locations within the [facility]. For locations and available times, please visit www.[email or web address].[email or web address]/. It is important to note that some COVID mobile vaccine clinics are held outdoors and may be canceled in rainy or stormy conditions. To learn more about pediatric vaccinations (ages 5-11), we invite you to visit the [facility] webpage. https://www.[facility].org/pages/2019-Novel- Gdnqatlmxkk-Ugufodethg-Gejmm-Questions.html To learn more about the COVID-19 vaccine, we invite you to visit the CDC website for a list of frequently asked questions. https://www.cdc.gov/coronavirus/2019-ncov/vaccin es/faq.html [facility] Patient Portal Access Instructions: Stay connected with your healthcare team and access your personal medical information anytime with the [facility] [employer] [employer] Patient Portal. If you would like a full copy of your medical records please contact the [facility] Medical Records Department Sunday through Sunday between 8a.m. and 4:30p.m. Please follow the directions below to access the portal: 1.Access the email account you provided upon registration to the [facility].2.Look for an invitation email from [facility].3.Open the email and access the invitation link: Accept Invitation to [facility]4.Fill in the required adame to create your account. Sign into [email or web address] with your username and password that you [...] you will allow to register on the [facility] [employer] Patient Portal for access to your information. You can also access the [facility] [employer] Patient Portal on the [employer]. Simply click on Health Records under Health Data and then click on the [email or web address] logo. HOW TO SAFELY DISPOSE OF PRESCRIPTION [...] Call your local pharmacy or go to http://bit.studentSN/4T0Zv8j to find one close to you.3.Make use of household items: Use cat litter or old coffee grounds to dispose medications if other options are not available. Mix your drugs with these household products, seal them in an airtight container and throw it into the garbage. Call [facility]: [phone] to be sure your drugs can be [...] aware that I should contact my doctor. Patient/Geospatial Technician Signature: Date/Time: Relationship to Patient: Witness Name/Signature: Date/Time: [facility] 11-14-2022 Note ORIGINAL EXAMINATION: CT OF [...] 11/14/2022 4:41:55 PM Ordering Provider: MARK KUMAR [facility] 11-14-2022 Note SINUS RHYTHM Electronic Signature: JAYJAY ALVES MD 11/14/2022 10:32:16 [facility] 05-06-2022 Hospital Discharge instructions Patient Education [...] medicine for you. Or you may use ilmv-ase-gffcxdv pain relievers, such as acetaminophen or ibuprofen. [...] future, keep your teeth clean and healthy. Straughn twice a day and floss at least once daily. See your dentist for regular tooth cleanings. And stay away from sugary foods and drinks that can lead to tooth decay. [phone] [employer] [place] [address]. All rights reserved. This information is not intended as a substitute for professional medical care. Always follow your healthcare professional's instructions. Follow Up Care 05/06/2022 20:16:29 With:your dentist Address: When:2-4 days With:[facility], [facility] Address: [address] [place] [phone] When:2-4 days [facility] 05-06-2022 Emergency department Discharge summary Discharge [...] days Where: Follow Up with [facility] When Within 2-4 days Where: [address] [place] [phone]- [phone] Allergies NKA Medications Please ask your primary [...] medicine for you. Or you may use tgcz-lvb-cjhrcmj pain relievers, such as acetaminophen or ibuprofen. [...] future, keep your teeth clean and healthy. Straughn twice a day and floss at least once daily. See your dentist for regular tooth cleanings. And stay away from sugary foods and drinks that can lead to tooth decay. [phone] [employer]. [address] [place] [address], [place] [address]. All rights reserved. This information is not intended as a substitute for professional medical care. Always follow your healthcare professional's instructions. Additional Information VACCINATE! IT SAVES LIVES! Members of the community who have not yet received the COVID-19 vaccine and would like to receive it can visit one of [facility] vaccine clinics. There are many vaccine clinic locations within the [facility]. For locations and available times, please visit www.[email or web address].[email or web address]/. It is important to note that some COVID mobile vaccine clinics are held outdoors and may be canceled in rainy or stormy conditions. To learn more about pediatric vaccinations (ages 5-11), we invite you to visit the [facility] webpage. https://www.[facility].org/pages/2019-Novel- Dapclxorazn-Wivzgwimvj-Xkuut-Questions.html To learn more about the COVID-19 vaccine, we invite you to visit the CDC website for a list of frequently asked questions. https://www.cdc.gov/coronavirus/2019-ncov/vaccin es/faq.html [facility] [employer] Patient Portal Access Instructions: Stay connected with your healthcare team and access your personal medical information anytime with the [employer] Patient Portal. If you would like a full copy of your medical records please contact the [facility] Medical Records Department Sunday through Sunday between 8a.m. and 4:30p.m. Please follow the directions below to access the portal: 1.Access the email account you provided upon registration to the hospital.2.Look for an invitation email from [facility].3.Open the email and access the invitation link: Accept Invitation to [employer]4.Fill in the required adame to create your account. Sign into [email or web address] with your username and password that you [...] you will allow to register on the [facility] Patient Portal for access to your information. You can also access the [facility] Patient Portal on the [employer]. Simply click on Health Records under Health Data and then click on the [employer][email or web address] logo. HOW TO SAFELY DISPOSE OF PRESCRIPTION [...] Call your local pharmacy or go to http://CoPromote.studentSN/3I5Wl0e to find one close to you.3.Make use of household items: Use cat litter or old coffee grounds to dispose medications if other options are not available. Mix your drugs with these household products, seal them in an airtight container and throw it into the garbage. Call [facility]: [phone] to be sure your drugs can be [...] reviewed and explained to me and I,RONNA AUGAYO understand my current condition and have read and understand these discharge instructions. I have received a written copy of the plan/instructions. If I have questions, I am aware that I should contact my doctor. Patient/Geospatial Technician Signature: Date/Time: Relationship to Patient: Witness Name/Signature: Date/Time: [facility] 04-16-2022 Note HNO ID: [id number] Author: Nishi Munoz, DO Service: ? Author [...] here. She also missed her shift at [employer] because the heat and [employer] was making her teeth hurt worse so she wants a slip to be off today and tomorrow from [employer]. And she was given that. Patient will [...] - MELOXICAM 15 MG TABLET Nishi Munoz [facility] 04-16-2022 Miscellaneous Notes Addended by: NISHI MUNOZ on: 04/16/2022 12:10 PM Modules accepted: Orders documented in this encounter [facility] 04-16-2022 History of Present illness Narrative Formatting [...] here. She also missed her shift at [facility] because the heat and [employer] was making her teeth hurt worse so she wants a slip to be off today and tomorrow from [facility]. And she was given that. Patient will [...] TABLET Nishi Munoz documented in this encounter [facility] 02-24-2022 Hospital Discharge instructions Patient Education 02/24/2022 [...] or as directed by your healthcare provider [phone] [employer]. [address] [place] [address]. All rights reserved. This information is not intended as a substitute for professional medical care. Always follow your healthcare professional's instructions. 02/24/2022 14:13:00 Diet, [place] (Adult) Waterloo Diet Your healthcare provider may recommend a [...] rizwan, cinnamon, thyme, mace, allspice, paprika Avoid: Amboy powder, cloves, pepper, seed spices, garlic, gravy pickles, highly seasoned salad dressings [phone] [employer]. [address] [place] [address]. All rights reserved. This information is not intended as a substitute for professional medical care. Always follow your healthcare professional's instructions. Follow Up Care 02/24/2022 11:01:50 With:[facility] Address: [address] [place] [phone]- [phone] When:2-4 days [facility] 02-24-2022 Emergency department Discharge summary Discharge [...] Following Appointments Follow Up with [facility] When Within 2-4 days Where: [address] [place] [phone]- [phone] Allergies NKA Medications Please ask your primary [...] or as directed by your healthcare provider [phone] [employer]. [address] [place] [address]. All rights reserved. This information is not intended as a substitute for professional medical care. Always follow your healthcare professional's instructions. [place] Diet Your healthcare provider may recommend a [...] or rye bread, mckenzie or soda crackers, [place] toast, plain rolls, bagels Avoid: Whole-grain bread [...] rizwan, cinnamon, thyme, mace, allspice, paprika Avoid: Amboy powder, cloves, pepper, seed spices, garlic, gravy pickles, highly seasoned salad dressings [phone] [employer] [place] [address], [place] [address]. All rights reserved. This information is not intended as a substitute for professional medical care. Always follow your healthcare professional's instructions. Additional Information VACCINATE! IT SAVES LIVES! Members of the community who have not yet received the COVID-19 vaccine and would like to receive it can visit one of [facility] vaccine clinics. There are many vaccine clinic locations within the [facility]. For locations and available times, please visit [email or web address]. It is important to note that some COVID mobile vaccine clinics are held outdoors and may be canceled in rainy or stormy conditions. To learn more about pediatric vaccinations (ages 5-11), we invite you to visit the [facility] webpage. https://www.[facility].org/pages/2019-Novel- Etwiukcxzxk-Lspliijmvl-Spmxd-Questions.html To learn more about the COVID-19 vaccine, we invite you to visit the [employer] website for a list of frequently asked questions. [email or web address]/Srlfytgj-iyp-Lvcqqkqr /evign-Mqaryjo-Zdxsfexgaz_Oeefl-Questions.pdf [employer] Patient Portal Access Instructions: Stay connected with your healthcare team and access your personal medical information anytime with the [employer] Patient Portal. If you would like a full copy of your medical records please contact the [facility] Medical Records Department Sunday through Sunday between 8a.m. and 4:30p.m. Please follow the directions below to access the portal: 1.Access the email account you provided upon registration to the hospital.2.Look for an invitation email from [facility].3.Open the email and access the invitation link: Accept Invitation to [employer]4.Fill in the required adame to create your account. Sign into [email or web address] with your username and password that you [...] you will allow to register on the [facility] Patient Portal for access to your information. You can also access the [facility] Patient Portal on the [employer] cinthya. Simply click on Health Records under Health Data and then click on the Store-[email or web address].com logo. HOW TO SAFELY DISPOSE OF PRESCRIPTION [...] Call your local pharmacy or go to http://CoPromote.[email or web address]/[email or web address] to find one close to you.3.Make use of household items: Use cat litter or old coffee grounds to dispose medications if other options are not available. Mix your drugs with these household products, seal them in an airtight container and throw it into the garbage. Call [facility]: [phone] to be sure your drugs can be [...] Signatures Patient Education Materials Gastritis (Adult) Diet, Waterloo (Adult) Medication Leaflets My discharge plan and instructions have been reviewed and explained to me and I,RONNA AGUAYO understand my current condition and have read and understand these discharge instructions. I have received a written copy of the plan/instructions. If I have questions, I am aware that I should contact my doctor. Patient/Geospatial Technician Signature: Date/Time: Relationship to Patient: Witness Name/Signature: Date/Time: [facility] 02-24-2022 Evaluation + Plan note Diagnostic Tests PendingUrine Culture 02/24/22 [facility] 02-24-2022 Note ORIGINAL HISTORY: No COMPARISON: [...] 02/24/2022 1:32:37 PM Ordering Provider: [facility] 02-24-2022 Note ORIGINAL HISTORY: No COMPARISON: [...] 02/24/2022 1:32:37 PM Ordering Provider: [facility] 02-13-2022 Hospital Discharge instructions Patient Education [...] hand becomes cold, blue, numb or tingly [id number] [employer]. [address] [place] [address]34. All rights reserved. This information is not [...] alternate ice and heat. You may use lgyo-pyu-xxixkts pain medicine to control pain, unless another [...] becomes cold, blue, numb, or tingly [employer]. [address] [place] [address]. All rights reserved. This information is not intended as a substitute for professional medical care. Always follow your healthcare professional's instructions. 02/13/2022 11:51:49 Hand and Wrist Exercises: Forearm Perinatology Physician and Wrist Exercises: Forearm Roll This exercise [...] position. Repeat times. Do sets a day. [employer]. [address] [place] [address]. All rights reserved. This information is not intended as a substitute for professional medical care. Always follow your healthcare professional's instructions. Follow Up Care 02/13/2022 09:33:08 With:[facility] Address: [address] [place] [phone] Business (1) When:2-4 days With:[facility] Address: [address] [place] [phone]- [phone] Business (1) When:2-4 days Comments:Return to ED if symptoms worsen [facility] 02-13-2022 Emergency department Discharge summary Discharge [...] [facility] When Within 2-4 days Where: [address] [place] [address]. [address] [address] [place] [address] Business (1) Follow Up with [facility] When Within 2-4 days Why: Return to ED if symptoms worsen Where: [address] [place] [address] [phone] Business (1) Allergies NKA Medications Please ask [...] hand becomes cold, blue, numb or tingly [phone] [employer]. [address] [place] [address], [place] [address]. All rights reserved. This information is not [...] alternate ice and heat. You may use ayns-pgf-ukmzufa pain medicine to control pain, unless another [...] becomes cold, blue, numb, or tingly [employer]. [address] [place] [address]. All rights reserved. This information is not [...] Repeat times. Do sets a day. [employer]. [address] [place] [address]. All rights reserved. This information is not intended as a substitute for professional medical care. Always follow your healthcare professional's instructions. Additional Information VACCINATE! IT SAVES LIVES! Members of the community who have not yet received the COVID-19 vaccine and would like to receive it can visit one of [facility] vaccine clinics. There are many vaccine clinic locations within the [facility]. For locations and available times, please visit [email or web address]. It is important to note that some COVID mobile vaccine clinics are held outdoors and may be canceled in rainy or stormy conditions. To learn more about pediatric vaccinations (ages 5-11), we invite you to visit the [facility] webpage. https://www.[facility].org/pages/2019-Novel- Xakzkfmwufv-Ojqwxoprxp-Zttru-Questions.html To learn more about the COVID-19 vaccine, we invite you to visit the [employer]com website for a list of frequently asked questions. https://Igloo Vision.Tyromer/assets/Dgpseqjj-ezz-Ypglrisb /ndmws-Ivkooox-Plxxofpazu_Bdnkl-Questions.pdf [facility] Patient Portal Access Instructions: Stay connected with your healthcare team and access your personal medical information anytime with the [facility] [employer] Patient Portal. If you would like a full copy of your medical records please contact the [facility] Medical Records Department Sunday through Sunday between 8a.m. and 4:30p.m. Please follow the directions below to access the portal: 1.Access the email account you provided upon registration to the [facility].2.Look for an invitation email from [facility].3.Open the email and access the invitation link: Accept Invitation to [facility] [employer]4.Fill in the required adame to create your account. Sign into [email or web address] with your username and password that you [...] you will allow to register on the [facility] [employer] Patient Portal for access to your information. You can also access the [facility] [employer] Patient Portal on the [employer] cinthya. Simply click on Health Records under [...] Call your local pharmacy or go to http://bit.studentSN/8M7Tq0s to find one close to you.3.Make use of household items: Use cat litter or old coffee grounds to dispose medications if other options are not available. Mix your drugs with these household products, seal them in an airtight container and throw it into the garbage. Call [facility]: [phone] to be sure your drugs can be [...] aware that I should contact my doctor. Patient/Geospatial Technician Signature: Date/Time: Relationship to Patient: Witness Name/Signature: Date/Time: [facility] 02-13-2022 Note ORIGINAL EXAMINATION: THREE XRAY [...] Sign Date: 02/13/2022 10:33:45 AM Ordering Provider: [facility] 02-13-2022 Note ORIGINAL EXAMINATION: THREE [...] Sign Date: 02/13/2022 10:33:45 AM Ordering Provider: [facility] 11-19-2021 Hospital Discharge instructions Patient [...] or water and you are getting dehydrated [phone] [employer]. [address] [place] [address]. All rights reserved. This information is not intended as a substitute for professional medical care. Always follow your healthcare professional's instructions. Follow Up Care 11/19/2021 10:30:34 With:MD TANYA PARISI MD Address: [address] [place] [address] [address] [facility] [address]- [phone] When:2-4 days [facility] 11-19-2021 Emergency department Discharge summary Discharge Instructions Thank you for allowing [facility] to assist you with your healthcare needs. The following is important discharge information regarding your hospital visit. Diagnosis from Today's Visit Acute LUQ pain What to Do Next Instructions from Your Care Team No qualifying data available. Post Acute Orders No qualifying data available. You Need to Schedule the Following Appointments Follow Up with MD TANYA PARISI MD When Within 2-4 days Where: [address] [place] [address] B [facility] [address]- [phone] Allergies NKA Medications Please ask your primary [...] or water and you are getting dehydrated [phone] [employer]. [address] [place] [address]. All rights reserved. This information is not intended as a substitute for professional medical care. Always follow your healthcare professional's instructions. Additional Information VACCINATE! IT SAVES LIVES! Members of the community who have not yet received the COVID-19 vaccine and would like to receive it can visit one of [facility] vaccine clinics. There are many vaccine clinic locations within the [facility]. For locations and available times, please visit [email or web address]. It is important to note that some COVID mobile vaccine clinics are held outdoors and may be canceled in rainy or stormy conditions. To learn more about pediatric vaccinations (ages 5-11), we invite you to visit the [facility] webpage. https://www.[facility].org/pages/2019-Novel- Jcslcptlati-Rwbbrsusyj-Icwqx-Questions.html To learn more about the COVID-19 vaccine, we invite you to visit the [facility] website for a list of frequently asked questions. https://falling waters.[facility]/assets/Mzbbrntd-oir-Wghjfwfu /opjrn-Ucumlrs-Ffzievedza_Vsude-Questions.pdf [facility] Patient Portal Access Instructions: Stay connected with your healthcare team and access your personal medical information anytime with the [facility] Patient Portal. If you would like a full copy of your medical records please contact the [facility] Medical Records Department Sunday through Sunday between 8a.m. and 4:30p.m. Please follow the directions below to access the portal: 1.Access the email account you provided upon registration to the [facility].2.Look for an invitation email from [facility].3.Open the email and access the invitation link: Accept Invitation to [facility] [employer]4.Fill in the required adame to create your [...] you will allow to register on the [facility] Patient Portal for access to your information. You can also access the [facility] Patient Portal on the [employer] cinthya. Simply click on Health Records under [...] Call your local pharmacy or go to http://bit.studentSN/1A8Us4b to find one close to you.3.Make use of household items: Use cat litter or old coffee grounds to dispose medications if other options are not available. Mix your drugs with these household products, seal them in an airtight container and throw it into the garbage. Call [facility]: [phone] to be sure your drugs can be [...] aware that I should contact my doctor. Patient/Geospatial Technician Signature: Date/Time: Relationship to Patient: Witness Name/Signature: Date/Time: [facility] 09-08-2021 Note ORIGINAL EXAMINATION: TWO XRAY [...] Sign Date: 09/08/2021 9:13:07 PM Ordering Provider: [facility] 09-08-2021 Note ORIGINAL EXAMINATION: TWO XRAY [...] Sign Date: 09/08/2021 9:13:07 PM Ordering Provider: [facility] 09-02-2021 Evaluation + Plan note Diagnostic Tests PendingUrine Culture 09/02/21 [facility] 08-18-2021 Miscellaneous Notes BEHAVIORAL HEALTH INTAKE NOTE SERVICE DATE: 08/18/21 SERVICE TIME: 2:59p Nature of the crisis: Sandra slipped from CSU to ED due to manic behavior Presenting Problem: Ronna Aguayo is a 25 year old female brought in to [facility] ED from Outpatient Office by ambulance for psych evaluation. Pt states that she was upset about something her sister said to her over phone (sister was demanding pt's WIC) and they were talking about anger in an emotions class and pt punched a wall at the [facility] crisis unit ([facility]). Pt's adoptive sister Roma is currently caring for her 1 month old daughter while she is in CSU. 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 Pt started on Abilify when she arrived at CSU on August 10 2021. Pt prescribed meds by Christi VILLA and sees telephonic case manager Enedelia. Pt denies SI/HI. Per Sandra (CSU [...] Current Mental Health Providers: Garry Beth Agency/Organization: [facility] History: Over 90 Days [...] Age or have a Guardian/Healthcare Power of Earrings Fabricator?: No Disposition Date: 08/18/21 Disposition Time: 1522 SIGNATURE: REEMA Lazcnao PATIENT NAME: Ronna Aguayo DATE: August 18, 2021 TIME: 3:29 PM documented in this encounter [facility] 07-21-2021 Hospital Discharge instructions Patient Education 07/21/2021 [...] you. Follow these instructions at home: Take iuhc-unj-iicpqam and prescription medicines only as told by [...] 2014 Document Revised: 03/07/2019 Document Reviewed: 11/19/2017 [employer] Patient Education 2020 [employer]. 07/21/2021 07:14:21 Hemorrhage Hemorrhage hemorrhage is excessive [...] spinach, red meat, and legumes. Take any msug-poi-ejocvxb and prescription medicines only as told by [...] 04/20/2004 Document Revised: 01/11/2018 Document Reviewed: 09/01/2016 [employer] Patient Education 2020 [employer]. 07/21/2021 07:14:19 7- Home Care Instructions After [...] decreases and the color of blood gets rn neonatal icu. Bright red and increased flow may reoccur [...] tender for several weeks. Take prescription or zqfi-xmr-sguikrx medications for pain with your care givers [...] straining when trying to pass a stool. Zzxv-pls-msspsbt medications, stool softeners, can be used. Check [...] flu symptoms.) Follow Up Care 07/17/2021 16:19:39 With:[facility], CLINIC Address: [address] [place] [address] (Mon-Fri from 8:30am - 5:00pm) [place] [address]- When:09/01/2021 Comments:Follow-up as needed [facility] 07-16-2021 Hospital Discharge instructions Patient Education 07/16/2021 17:05:07 7 - Labor and Delivery Outpatient Instructions (CUSTOM) [facility] OUT[facility] HOME-GOING INSTRUCTIONS _X_ [...] crackers, bananas, Jell-O, cooked carrots, applesauce. __x_ Waterloo diet. Avoid caffeine, chocolate, alcohol, spiced/greasy foods. [...] the nearest Emergency Room for assistance. Form [id number] D: 01/20 Document Released: 01/29/2006 Document Revised: 01/18/2012 Document Reviewed: 01/29/2006 [facility] Patient Information 2012 [employer]. Follow Up Care 07/16/2021 13:09:43 With:RODRIGUE PLATT DO Address: [address] [place] [address] [place] [address]- [phone] When: Unknown Comments:Follow-up as scheduled [facility] 07-16-2021 Hospital Discharge instructions Patient Education 07/16/2021 10:47:10 7 - Labor and Delivery Outpatient Instructions (CUSTOM) [facility] HOME-GOING INSTRUCTIONS _X_ [...] crackers, bananas, Jell-O, cooked carrots, applesauce. ___ Waterloo diet. Avoid caffeine, chocolate, alcohol, spiced/greasy foods. [...] the nearest Emergency Room for assistance. Form [id number] D: 01/20 Document Released: 01/29/2006 Document Revised: 01/18/2012 Document Reviewed: 01/29/2006 [employer] Patient Information 2012 [employer]. Follow Up Care 07/16/2021 09:32:25 With:OB, OB CLINIC Address: [address] [place] [phone]- When: Unknown Comments:Follow-up as scheduledinduction of labor scheduled for 07-18-21 [facility] 07-07-2021 Hospital Discharge instructions Patient Education 07/07/2021 12:44:06 7 - Labor and Delivery Outpatient Instructions (CUSTOM) [facility] OUTPATIENT HOME-GOING INSTRUCTIONS _X_ [...] crackers, bananas, Jell-O, cooked carrots, applesauce. ___ Waterloo diet. Avoid caffeine, chocolate, alcohol, spiced/greasy foods. [...] the nearest Emergency Room for assistance. Form [id number] D: 01/20 Document Released: 01/29/2006 Document Revised: 01/18/2012 Document Reviewed: 01/29/2006 [employer]Care Patient Information 2012 [employer]. Follow Up Care 07/07/2021 11:41:49 With:[facility]PER[facility], CLINIC Address: [address] [place] [address] (Mon-Fri from 8:30am - 5:00pm) [place] [address]- When: Unknown Comments:Follow-up as scheduled [facility] 06-22-2021 Hospital Discharge instructions Patient Education [...] thin towel or cloth. You may use pcuk-dsr-nluywar pain medicine (NSAIDS or nonsteroidal anti-inflammatory drugs) [...] or is irritated You re-injure your ankle 8795-8748 [employer]. [address] [place] [address]. All rights reserved. This information is not intended as a substitute for professional medical care. Always follow your healthcare professional's instructions. Follow Up Care 06/22/2021 14:41:21 With:MEDICAL, CLINIC Address: [address] [place], [place] [phone]- When:2-4 days [facility] 06-22-2021 Hospital Discharge instructions Patient Education 06/21/2021 23:01:04 7 - Labor and Delivery Outpatient Instructions (CUSTOM) [facility] OUTPATIENT HOME-GOING INSTRUCTIONS _X_ [...] crackers, bananas, Jell-O, cooked carrots, applesauce. ___ Waterloo diet. Avoid caffeine, chocolate, alcohol, spiced/greasy foods. [...] the nearest Emergency Room for assistance. Form [id number] D: 01/20 Document Released: 01/29/2006 Document Revised: 01/18/2012 Document Reviewed: 01/29/2006 [employer]Care Patient Information 2012 [employer]. Follow Up Care 06/21/2021 21:30:35 With:[facility]PER[facility], CLINIC Address: [address] [place] [address] (Mon-Fri from 8:30am - 5:00pm) [facility] [place] [address]- When: Unknown Comments:Follow-up as scheduledFollow-up as scheduled [facility] 06-15-2021 Hospital Discharge instructions Patient Education 06/15/2021 16:37:26 7 - Labor and Delivery Outpatient Instructions (CUSTOM) [facility] OUTPATIENT HOME-GOING INSTRUCTIONS _X_ [...] the nearest Emergency Room for assistance. Form [id number] D: 01/20 Document Released: 01/29/2006 Document Revised: 01/18/2012 Document Reviewed: 01/29/2006 ExitCare Patient Information 2011 [employer]. Follow Up Care 06/15/2021 15:10:30 With:[facility]LO[facility]PERVISOR, CLINIC Address: [address] [place] [address] (Mon-Fri from 8:30am - 5:00pm) [place] [phone]- Business (1) When: Unknown Comments:Follow-up as scheduled [facility] 05-21-2021 Evaluation + Plan note Diagnostic Tests PendingUrine Culture 05/21/21 [facility] 05-21-2021 Hospital Discharge instructions Patient Education 05/21/2021 09:31:07 7 - Labor and Delivery Outpatient Instructions(CUSTOM) [facility]PATIENT HOME-GOING INSTRUCTIONS Keep [...] crackers, bananas, Jell-O, cooked carrots, applesauce. ___ Waterloo diet. Avoid caffeine, chocolate, alcohol, spiced/greasy foods. [...] the nearest Emergency Room for assistance. Form [id number] D: 01/20 Document Released: 01/29/2006 Document Revised: 01/18/2012 Document Reviewed: 01/29/2006 ExitCare Patient Information 2012 [employer]. Follow Up Care 05/21/2021 08:11:26 With:ROMA BAUER DO, CUT ORDER [employer] Address: When: Unknown Comments:Follow-up as scheduled [facility] 05-21-2021 Hospital Discharge instructions Patient Education 05/21/2021 01:45:34 7 - Labor and Delivery Outpatient Instructions (CUSTOM) [facility] OUTPATIENT HOME-GOING INSTRUCTIONS _X_ [...] crackers, bananas, Jell-O, cooked carrots, applesauce. ___ Waterloo diet. Avoid caffeine, chocolate, alcohol, spiced/greasy foods. [...] the nearest Emergency Room for assistance. Form [id number] D: 01/20 Document Released: 01/29/2006 Document Revised: 01/18/2012 Document Reviewed: 01/29/2006 [facility] Patient Information 2012 [employer]. Follow Up Care 05/20/2021 22:37:09 With:OB, CLINIC Address: When: Unknown Comments:Follow-up as scheduled [facility] 05-19-2021 Hospital Discharge instructions Patient Education 05/19/2021 14:08:24 7 - Labor and Delivery Outpatient Instructions(CUSTOM) [facility] OUTPATIENT HOME-GOING INSTRUCTIONS _X_ [...] crackers, bananas, Jell-O, cooked carrots, applesauce. ___ Waterloo diet. Avoid caffeine, chocolate, alcohol, spiced/greasy foods. [...] the nearest Emergency Room for assistance. Form [id number] D: 01/20 Document Released: 01/29/2006 Document Revised: 01/18/2012 Document Reviewed: 01/29/2006 ExitCare Patient Information 2011 [employer]. Follow Up Care 05/19/2021 11:42:25 With:[facility]PERVISOR, CLINIC Address: When: Unknown Comments:Follow-up as scheduled [facility] 05-09-2021 Hospital Discharge instructions Patient Education [...] dyes and rinses, soaps, solvents, waxes, fingernail guyanese, and deodorants Jewelry or watchbands made of [...] skin Yellow-brown crusts on the open blisters [phone] [employer]. [address] [place] [address], [place] [address]. All rights reserved. This information is not intended as a substitute for professional medical care. Always follow your healthcare professional's instructions. Follow Up Care 05/09/2021 14:47:43 With:[facility] FLOOR SUPERVISOR, CLINIC Address: When:2-4 days [facility] 05-03-2021 Hospital Discharge instructions Patient Education 05/03/2021 13:25:32 7 - Labor and Delivery Outpatient Instructions (CUSTOM) [facility] OUTPATIENT HOME-GOING INSTRUCTIONS _X_ [...] the nearest Emergency Room for assistance. Form [id number] D: 01/20 Document Released: 01/29/2006 Document Revised: 01/18/2012 Document Reviewed: 01/29/2006 [facility] Patient Information 2011 [employer] [facility]. Follow Up Care 05/03/2021 11:50:34 With:GAMING FLOOR SUPERVISOR, CLINIC Address: [address] [place] [address] (Mon-Fri from 8:30am - 5:00pm) [place] [phone]- Business (1) When: Unknown Comments:Follow-up as scheduled [facility] 04-01-2021 Hospital Discharge instructions Patient Education [...] Black, tarry stool Involuntary weight loss Weakness 8422-3874 [employer]. [address] [place] [address]. All rights reserved. This information is not intended as a substitute for professional medical care. Always follow your healthcare professional's instructions. Follow Up Care 04/01/2021 01:15:58 With:Follow up with primary care provider Address:Unknown When:2-4 days With:MEDICAL, CLINIC Address: [facility] [place] [address]- When:2-4 days [facility] 03-27-2021 Hospital Discharge instructions Patient Education [...] can see your family provider, a specialist (software test manager), or a primary care clinic. When to [...] gain Fever Vision changes or blurred vision [id number] [employer]. [address] [place] [address]. All rights reserved. This information is not intended as a substitute for professional medical care. Always follow your healthcare professional's instructions. Follow Up Care 03/21/2021 10:44:13 With:[facility] Address: [address] [place] [phone]- Business (1) When:2-4 days With:[facility] ([facility]) Address: [facility] [place] [address]- [phone] Business (1) When:2-4 days With:[facility] Address: [address] [place] [phone] Business (1) When:2-4 days With:[facility] Address: [address] [place] [phone]- Business (1) When:2-4 days With:MEDICAL, CLINIC Address: [address] [place] [address]- When:2-4 days [facility] 03-12-2021 Hospital Discharge instructions Patient Education 03/11/2021 22:27:44 7 - Labor and Delivery Outpatient Instructions [facility] OUTPATIENT HOME-GOING INSTRUCTIONS _X_ [...] crackers, bananas, Jell-O, cooked carrots, applesauce. ___ [place] diet. Avoid caffeine, chocolate, alcohol, spiced/greasy foods. [...] the nearest Emergency Room for assistance. Form 893870 D: 01/20 Document Released: 01/29/2006 Document Revised: 01/18/2012 Document Reviewed: 01/29/2006 [facility] Patient Information 2011 [employer]. Follow Up Care 03/11/2021 20:28:39 With:GAMING FLOOR SUPERVISOR, CLINIC Address: [address] [place] [address] (Mon-Fri from 8:30am - 5:00pm) [facility] [place] [address]- Business (1) When: Unknown Comments:Follow-up as scheduled [facility] 03-11-2021 Evaluation + Plan note Diagnostic Tests PendingUrine Culture 03/11/21Chlamydia trachomatis PCR 03/11/21N. gonorrhoeae PCR 03/11/21 [facility] 02-22-2021 History of Present illness Narrative [...] She understands and agrees. Hoang Sweeney MD PP/[id number] [facility] File#: [id number] END OF DOCUMENT / CHANGE LOG FOLLOWS Last Edited By [employer]. Signed By Hoang Sweeney MD #PAWPR Hoang Sweeney MD #PAWPR on 02/24/2021 13:40 ET on 02/24/2021 13:40 ET Revision Number - 2 ^^^ Verified/Reviewed by 02/24/21 1340 [facility] PATIENT NAME: RONNA AGUAYO [address] [facility] [address] Zraate MEDICAL REC #: [id number] [place] [address] [facility] REPORT STATCARE PHYSICIAN documented in this encounter [facility] 01-31-2021 Hospital Discharge instructions Patient Education 01/31/2021 12:23:35 COVID-19 Prevent the Spread of COVID-19 If You Are Sick (07/01/2019)(CUSTOM) Prevent the Spread of COVID-19 If You Are Sick Accessible version: https://www.cdc.gov/coronavirus/2019-ncov/if-you -are-sick/pyubd-kvry-tibt.html If you are sick with COVID-19 or [...] if you have questions about pets: https://www.cdc.gov/coronavirus/2019ncov/faq.htm l#THZSU88tydlkak Monitor your symptoms. Common symptoms of COVID-19 [...] and need to call 911, notify the milling planer operator that you have or think you [...] clean your hands with an alcohol-based hand farm management supervisor that contains at least 60% alcohol. Clean your hands often. Wash your hands often with soap and water for at least 20 seconds. This is especially important after blowing your nose, coughing, or sneezing; going to the bathroom; and before eating or preparing food. Use hand farm management supervisor if soap and water are not available. Use an alcohol-based hand farm management supervisor with at least 60% alcohol, covering all [...] and water or put them in the cable lacer. Clean all high-touch surfaces everyday. Clean and [...] or body fluids on them. Use household human resources designate and disinfectants. Clean the area or item [...] loosen secretions in the nose and lungs. Zmmi-yoo-jngwwwh cold medicines will not shorten the length of time you re sick, but they may be helpful for the following symptoms: cough, sore throat, and nasal and sinus congestion. If you take prescription medicines, ask your healthcare provider or pharmacist which xozx-hkx-bsrzsqo medicines are safe to use. (Note: Don't [...] it goes along with a muffled voice [phone] [employer]. [address] [place] [address]. All rights reserved. This information is not intended as a substitute for professional medical care. Always follow your healthcare professional's instructions. Follow Up Care 01/31/2021 09:55:05 With:[facility] Address: [phone] When:2-4 days [facility] 01-31-2021 HCoV 229E RNA AMY+non-probe Ql [...] go to the hospital. 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 Regarding the eczema, I told her about wdtv-bwy-paqygma cortisone cream. I explained to her that I do not want to prescriber any strong cream, but nbuu-fbr-shrvjyn hydrocortisone cream should really help. I prescribed her vitamin 1 tablet daily, 30 tablets, with no refill and instructed her to see OB as soon as possible. The patient understands and agrees. Her questions were answered to her satisfaction. Hoang Sweeney MD PP/[id number] [facility] File#: [id number] END OF DOCUMENT / CHANGE LOG FOLLOWS Last Edited By Elec. Signed By Hoang Sweeney MD #PAWPR Hoang Sweeney MD #PAWPR on 11/29/2020 18:00 ET on 11/29/2020 18:00 ET Revision Number - 2 ^^^ Verified/Reviewed by 11/29/20 1800 PAWPR [facility] PATIENT NAME: RONNA AGUAYO [address] [facility] [address] [place] MEDICAL REC #: [id number] [place] [address] [facility] REPORT STATCARE PHYSICIAN documented in this encounter [facility] 09-27-2020 History of Present illness Narrative DATE [...] perhaps she needed to get into a cooperative manager or just follow up with her [...] was already off today. Nishi Munoz DO /[id number] [facility] File#: [id number] END OF DOCUMENT / CHANGE LOG FOLLOWS Last Edited By Elec. Signed By Nishi Munoz Lisa D DO #VAULI on 10/01/2020 08:50 ET on 10/01/2020 08:50 ET Revision Number - 2 ^^^ Verified/Reviewed by 10/01/20 0850 [facility] PATIENT NAME: RONNA AGUAYO [address] [facility] [address] [place] MEDICAL REC #: [id number] [place] [address] [facility] REPORT STATCARE PHYSICIAN documented in this encounter [facility] 06-12-2020 History of Present illness Narrative DATE [...] Stable on discharge. All questions answered. FILIBERTO Vega/[id number] [facility] File#: [id number] END OF DOCUMENT / CHANGE LOG FOLLOWS Last Edited By Elec. Signed By Micaela Guy PAC #WASMicaela Plaza PAC #WASTH on 06/14/2020 13:38 ET on 06/14/2020 13:38 ET Revision Number - 2 ^^^ Verified/Reviewed by 06/14/20 1338 [facility] PATIENT NAME: RONNA AGUAYO [address] [facility] [address] [place] MEDICAL REC #: [id number] [place] [address] [facility] REPORT STATCARE PHYSICIAN documented in this encounter [facility] 02-18-2020 History of Present illness Narrative DATE [...] Patient understands and agrees. Hoang Sweeney MD PP/[id number] [facility] File#: [id number] END OF DOCUMENT / CHANGE LOG FOLLOWS Last Edited By Elec. Signed By Hoang Sweeney MD #PAWPR Hoang Sweeney MD #PAWPR on 02/18/2020 19:09 ET on 02/18/2020 19:09 ET Revision Number - 2 ^^^ Verified/Reviewed by 02/18/20 1909 [facility] PATIENT NAME: RONNA AGUAYO [address] [facility] [address] [place] MEDICAL REC #: [id number] [place] [address] [facility] REPORT STATCARE PHYSICIAN documented in this encounter [facility] 12-05-2019 History of Present illness Narrative DATE [...] patient understands and agrees. Hoang Sweeney MD /[id number] [facility] File#: [id number] END OF DOCUMENT / CHANGE LOG FOLLOWS Last Edited By Elec. Signed By Hoang Sweeney MD #PAWPR Hoang Sweeney MD #PAWPR on 12/05/2019 17:35 ET on 12/05/2019 17:35 ET Revision Number - 2 ^^^ Verified/Reviewed by 12/05/19 1735 PAWPR [facility] PATIENT NAME: RONNA AGUAYO [address] [facility] [address] [place] MEDICAL REC #: [id number] [place] [id number] [facility] REPORT STATCARE PHYSICIAN documented in this encounter [facility] Evaluation + Plan note No data available for this section [facility] Evaluation note Diagnosis Odontalgia- Primary Unspecified disorder of the teeth and supporting structures [facility] Acute otitis media, right- Primary Unspecified otitis media [facility] Diagnosis Sore throat- Primary Acute pharyngitis URI, acute Acute upper respiratory infections of unspecified site [facility] No data available for this section [facility] Progress note No data available for this section [facility] Summary Purpose Family History No Family History Records FoundNo Family History Records Found No data available for this section No data available for this section No Family History Records FoundNo Family History Records FoundNo Family History Records Found Advance Directives No Advanced Directives Records FoundDocuments on File Type Date Recorded 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 Advance Directive(s) 08/18/2021 12:53 PM Health Concerns Infection Onset Date Last Indicated Resolved Time COVID-19 Rule-Out 08/18/2021 08/18/2021 08/18/2021 2:42 PM EDT Additional Source Comments Care Team (unrecognized sect ion and content) Party Chief Relationship Specialty Start Date End Date Elyssa Lance [address] [place] [phone] PCP - General Family Practice 12/14/16 Party Chief Relationship Specialty Start Date End Date Elyssa Lance [address] [place] [address] PCP - General Family Practice 12/14/16 Source Comments (unrecognize d section and content) In the event this informatio n is protected by the Federal Confidentiality of Alcohol and Drug Abuse Patient Records regulations: The Federal rules restrict any use of the information to criminally investigate or prosecute any alcohol or drug abuse patient.[facility] the event this information is protected by the Federal Confidentiality of Alcohol and Drug Abuse Patient Records regulations: The Federal rules restrict any use of the information to criminally investigate or prosecute any alcohol or drug abuse patient.[facility] the event this information is protected by the Federal Confidentiality of Alcohol and Drug Abuse Patient Records regulations: The Federal rules restrict any use of the information to criminally investigate or prosecute any alcohol or drug abuse patient.[facility] the event this information is protected by the Federal Confidentiality of Alcohol and Drug Abuse Patient Records regulations: The Federal rules restrict any use of the information to criminally investigate or prosecute any alcohol or drug abuse patient.[facility] the event this information is protected by the Federal Confidentiality of Alcohol and Drug Abuse Patient Records regulations: The Federal rules restrict any use of the information to criminally investigate or prosecute any alcohol or drug abuse patient.[facility] the event this information is protected by the Federal Confidentiality of Alcohol and Drug Abuse Patient Records regulations: The Federal rules restrict any use of the information to criminally investigate or prosecute any alcohol or drug abuse patient.[facility] the event this information is protected by the Federal Confidentiality of Alcohol and Drug Abuse Patient Records regulations: The Federal rules restrict any use of the information to criminally investigate or prosecute any alcohol or drug abuse patient.[facility] the event this information is protected by the Federal Confidentiality of Alcohol and Drug Abuse Patient Records regulations: The Federal rules restrict any use of the information to criminally investigate or prosecute any alcohol or drug abuse patient.[facility] the event this information is protected by the Federal Confidentiality of Alcohol and Drug Abuse Patient Records regulations: The Federal rules restrict any use of the information to criminally investigate or prosecute any alcohol or drug abuse patient.[facility] the event this information is protected by the Federal Confidentiality of Alcohol and Drug Abuse Patient Records regulations: The Federal rules restrict any use of the information to criminally investigate or prosecute any alcohol or drug abuse patient.[facility] the event this information is protected by the Federal Confidentiality of Alcohol and Drug Abuse Patient Records regulations: The Federal rules restrict any use of the information to criminally investigate or prosecute any alcohol or drug abuse patient.[facility] HealthIn the event this information is protected by the Federal Confidentiality of Alcohol and Drug Abuse Patient Records regulations: The Federal rules restrict any use of the information to criminally investigate or prosecute any alcohol or drug abuse patient.[facility] INFORMATION SOURCE (unrecogn ized section and content) DATE CREATED AUTHOR 05/26/2021 [facility] [place] DATE CREATED AUTHOR AUTHOR'S ORGANIZ ATION 04/18/2022 [facility] DATE CREATED AUTHOR AUTHOR'S ORGANIZ ATION 09/15/2023 [facility] ([place]) DATE CREATED AUTHOR AUTHOR'S ORGANIZ ATION 03/18/2024 [facility] DATE CREATED AUTHOR AUTHOR'S ORGANIZ ATION 10/22/2024 [facility] Reason for Visit (unrecogniz ed section and [...] Home [address] Care Team Personnel Name: PHYSICIAN, NONE Position: Physician Member Role: Primary Care Physician Care Team Related Persons Name: DECLINED, Name: TANISHA AGUAYO Address: Home [address] Care Team Personnel Name: PHYSICIAN, NONE Position: Physician Member Role: Primary Care Physician Care Team Related Persons Name: DECLINED, Name: TANISHA AGUAYO Address: Home [address] Care Team Personnel Name: PHYSICIAN, NONE Position: Physician Member Role: Primary Care Physician Care Team Related Persons Name: DECLINED, Name: TANIHSA AGUAYO Address: Home [address] Care Team Personnel Name: [facility] Member Role: Primary Care Physician Address: Address: [address] [place] [address] Name: Jackelyn Kaur COUNTER HELP Position: ED COUNTER HELP/CLS/MEDIC Member Role: ED COUNTER HELP Name: MD ARAMIS GEORGE MD Position: ED Physician Member Role: Attending Physician Address: Address: [facility] [address] [place] [address] Name: JAYJAY LAINEZC Position: ED Physician Regulatory Internship Member Role: ED PA Address: Address: [address] [facility] Randa [address] Care Team Related Persons Name: DECLINED, Name: TANISHA AGUAYO Address: Home [address] Care Team Personnel Name: [facility] Member Role: Primary Care Physician Address: Address: [address] [place] [address] Name: BAN ALVES MD Position: ED Physician Member Role: Attending Physician Address: Address: [facility] [address] [place] [address] Name: ARELIS LEONG Position: ED Physician Regulatory Internship Member Role: ED PA Address: Address: [address] [place] [address] [facility] [address] Name: ANDREA FLYNN DO Position: Resident Member Role: Resident Address: Address: [address] [place] [address] ED Resident [address] Name: KATHLEEN Marti Position: ED RN Member Role: ED RN Care Team Related Persons Name: DECLINED, Name: TANISHA AGUAYO Address: Home [address] [facility] [address] FOR RECORDS PERTAINING TO PATIENTS WHO [...] BE BASED ON THE PRIMARY CLINICAL RECORDS. [facility] [employer] provides no warranty or guarantee of the accuracy or completeness of information in this document.
[2024-10-26] MEDS: 0.9% Normal Saline (1000mL) 1,000 ML 1000 ML IV (13:52)
[2024-10-26] MEDS: DiphenhydrAMINE 50 MG/ML Syringe 25 MG IV (13:52)
[2024-10-26 14:07] LABS: Hematocrit 39.2 % (37-47); Hemoglobin 13.1 g/dL (12.0-15.0); Immature Granulocytes Count 0.020 X10^3/uL (0.0-0.0); Mean Corp Hgb Conc 33.4 g/dL (32-36); Mean Corpuscular Volume 93.8 fL (81-99); Mean Platelet Vol. 11.1 fl (6.2-12.0); NRBC Flagged by Analyzer 0 % (0-5); Platelet Count 216 K/mm3 (150-450); RBC Distribution Width CV 12.0 % (11.6-14.6); RBC Distribution Width SD 41.5 fl (35.1-43.9); Red Blood Count 4.18 M/mm3 (4.2-5.4); White Blood Count 6.9 K/mm3 (4.4-11.0)
[2024-10-26 14:10] LABS: Internal QC Validated? YES +Cl - CLEAR BKGD; Pregnancy, Serum, hCG Quali. NEGATIVE Negative; Record Kit Lot#, Serum Preg. 964736
[2024-10-26 14:34] LABS: Anion Gap 7 (5-15); BUN 13 mg/dL (4-19); BUN/Creat Ratio 18.3 RATIO (10-20); Calcium,Total 9.3 mg/dL (7.6-11.0); Carbon Dioxide 26.2 mmol/L (21.0-32.0); Chloride 107 mmol/L (98-108); Estimated Creatinine Clearance 91.55 ml/min (50-250); Glucose 86 mg/dL (70-99); Potassium 4.3 mmol/L (3.3-5.1)
[2024-10-26 15:03] VITALS: BP 110/72; PULSE 63; RESP 16; O2SAT 100
[2024-10-26 16:46] VITALS: BP 110/72; PULSE 63; RESP 16; TEMP 36.8; O2SAT 100
== END 2024-10-26 16:49 | disposition home or self-care (01) ==
PROVIDERS: Emergency Provider Emergency Medicine; PCP Internal Medicine; Visit Provider Emergency Medicine
DX: R51.9 Headache, unspecified (principal); J02.9 Acute pharyngitis, unspecified; F41.1 Generalized anxiety disorder; R11.0 Nausea; Z79.899 Other long term (current) drug therapy; F17.290 Nicotine dependence, other tobacco product, uncomplicated
CPT/HCPCS: 70450; 80048; 84703; 85025; 85652; 96361; 96374; 99284; A4216

== ENCOUNTER → 2024-12-31 | Outpatient (CLI) | payer MEDICARE, MEDICAID, SELFPAY ==
[2025-01-02 21:07] LABS: Chlamydia By Nucleic Acid AMP Negative (Negative); Gonococcus By Nucleic Acid AMP Negative (Negative)
== END | disposition home or self-care (01) ==
LOC: LABSPEC 11:10
PROVIDERS: PCP Internal Medicine; Visit Provider Nurse Practitioner Family
DX: N89.8 Other specified noninflammatory disorders of vagina (principal)
CPT/HCPCS: 87070; 87205; 87491; 87591

== ENCOUNTER 2025-01-14 18:53 | Emergency (ER) | payer MEDICARE, MEDICAID, SELFPAY ==
[2025-01-14 18:54] VITALS: BP 131/76; PULSE 91; RESP 18; TEMP 36.2; O2SAT 97; BMI 23.2
--- NOTE | 2025-01-14 19:13 | ED.VIS.GI ---
HPI HPI - GI History of Present Illness Chief Complaint: Abd Pain Informant: patient Abdominal Pain/Flank Pain Onset: Hours (4) Context: Gradual Onset Timing: Continuous Quality: Aching and Stabbing Location: Diffuse Worsened by: Nothing Relieved by: - (Warm bath) Nausea/Vomiting/Emesis GI Symptom: Positive for Nausea; Negative for Vomiting Diarrhea/Melena/Hematochezia GI Symptom: Negative for Diarrhea, Melena or Hematochezia Associated Symptoms Associated Symptoms: Negative for Dysuria, Frequency or Hematuria LMP: 1 month ago Narrative Narrative: Patient presents with abdominal pain that began approximately 4 hours prior to arrival. Patient states it began gradually and has gotten worse. Patient states it is constant. Patient describes it as aching and stabbing. Patient states it is diffuse across her entire abdomen. Patient states she took a warm bath which seemed to help. Patient admits to some nausea but denies any vomiting. Patient denies any diarrhea, melena, or hematochezia. Patient states she has been constipated. Patient states her stools are hard and difficult to get out. Patient denies any dysuria, frequency, or hematuria. Patient states her last menstrual period was approximately 1 month ago. [facility] Medical History Anxiety and depression Allergic dermatitis Seizures Migraines Home Medications ?Medication ?Instructions ?Recorded ?Last Taken ?Type dupilumab 300 mg/2 mL subcutaneous 300 mg subcut .COMPLEX 10/10/24 10/20/24 History pen injector (Dupixent) diphenhydramine HCl 25 mg capsule 50 mg PO DAILY PRN allergic 10/26/24 10/24/24 History (Allergy (diphenhydramine)) reaction propranolol 10 mg tablet 10 mg PO DAILY PRN anxiety #30 tabs 12/02/24 Unknown Rx fluoxetine 20 mg capsule 20 mg PO DAILY #30 caps 12/19/24 Unknown Rx risperidone 1 mg tablet 1 mg PO QHS #30 tabs 12/19/24 Unknown Rx Allergy/AdvReac Type Severity Reaction Status Date / Time peanut Allergy Anaphylaxis Verified 01/14/25 18:54 Family History Other Family history unknown Surgical History No pertinent past surgical history no surgical history Social History adopted: Yes household members: none number of children: 1 current occupational status: 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 sexually active: Yes Smoking Status: Current some day smoker tobacco type: e-cigarettes Electronic Cigarette Use: with nicotine alcohol intake: current alcohol intake frequency: holidays/special occasions only details: holidays substance use type: former substance user Date of last use: 2019 caffeine: Yes Type: carbonated beverages eating out: 1-3 times/week during the past year weight has: increased > 10 lbs what type of physical activity do you participate in: walking frequency: 1-2 times per week duration: 30-45 minutes/day danish/protestant: None seatbelt use: always do you feel safe at home: Yes additional social history: Single ROS ROS ED Constitutional Constitutional ED: Denies chills or fever(s) Eyes Eyes: Denies blurry vision or change in vision ENT ENT ED: Denies rhinorrhea or sore throat Cardiovascular Cardiovascular: Denies chest pain or palpitations Respiratory/Chest Respiratory/Chest: Denies cough or dyspnea Gastrointestinal Gastrointestinal: Reports abdominal pain, constipation and nausea; Denies melena or vomiting Genitourinary Genitourinary ED: Denies dysuria or hematuria Musculoskeletal Musculoskeletal: Denies back pain or neck pain Integumentary Denies abscess or rash Neurologic Neurologic: Denies headache(s) or weakness Allergic/Immunologic Allergic/Immunologic ED: Denies mouth swelling or urticaria EXAM Physical Exam Const Vital Signs: 01/14/25 18:54 01/14/25 20:13 Temperature 97.1 F L 98.6 F Temperature Source Temporal Oral Pulse Rate 91 73 Respiratory Rate 18 18 Blood Pressure 131/76 H 125/57 H Blood Pressure Mean 94 79 Pulse Ox 97 98 Oxygen Delivery Method Room Air Room Air Positive well nourished and well developed Constitutional Narrative: BMI is 23.2. General Appearance ED: well developed and NAD HEENT Reports moist mucous membranes Eyes PERRL and EOMs intact bilaterally Neck supple and no JVD Resp normal respiratory effort and clear to auscultation bilaterally Cardio regular rate and regular rhythm GI non-distended Palpation: soft and tender epigastric, LLQ, RLQ, LUQ, RUQ, periumbilical and suprapubic; Negative for guarding or rebound tenderness present Extremity full ROM General Extremety ED: Negative for edema or tenderness General Extremity: Negative for edema Neuro CN's II-XII intact bilaterally, moves all extremities and no sensory deficits noted Sensorium / Orientation: alert Motor Exam: strength 5/5 throughout Psych mental status grossly normal and thought process normal MDM MDM MDM Narrative Medical decision making narrative: Differential diagnose includes bowel obstruction, perforation, appendicitis, urinary tract infection, ectopic , ureteral calculus, diverticulitis, colitis, and viral illness. CBC will be obtained to assess for leukocytosis and anemia. Comprehensive metabolic profile will be obtained to assess for hepatic function, renal function, and electrolyte abnormality. Lipase will be obtained to assess for pancreatitis. Serum hCG will be obtained to assess for . Urinalysis will be obtained to assess for urinary tract infection and hematuria. CT scan of the abdomen and pelvis will be obtained to assess for bowel obstruction, perforation, and ureteral calculus. Lab Data Labs: Laboratory Results - last 24 hr 01/14/25 19:10 WBC 6.2 RBC 4.22 Hgb 13.0 Hct 37.3 MCV 88.4 MCH 30.8 MCHC 34.9 RDW Std Deviation 38.1 RDW Coeff of [place] 11.8 Plt Count 190 MPV 11.0 Immature Gran % (Auto) 0.200 Neut % (Auto) 60.9 Lymph % (Auto) 30.3 [place] % (Auto) 5.8 Eos % (Auto) 2.3 Baso % (Auto) 0.5 Absolute Neuts (auto) 3.8 Absolute Lymphs (auto) 1.88 Nucleated RBC % 0 Sodium 142 Potassium 3.4 Chloride 104 Carbon Dioxide 26.0 Anion Gap 12 BUN 13 Creatinine 0.85 Estim Creat Clear Calc 78.63 Est GFR (MDRD) Non-Af 96 BUN/Creatinine Ratio 14.8 Glucose 79 Calcium 8.9 Total Bilirubin 0.27 AST 15 ALT 20 Alkaline Phosphatase 64 Total Protein 6.4 Albumin 4.4 Globulin 2.0 L Albumin/Globulin Ratio 2.2 Lipase 47 Serum , Qual NEGATIVE Urine Color Straw Urine Clarity Clear Urine pH 6.5 Ur Specific [place] 1.010 Urine Protein 15 H Urine Glucose (UA) Normal Urine Ketones Negative Urine Occult Blood Negative Urine Nitrite Negative Urine Bilirubin Negative Urine Urobilinogen Normal Ur Leukocyte Esterase Negative Urine RBC 0-5 SEEN Urine WBC 0-5 SEEN Ur Squamous Epith Cells 0-5 SEEN Urine Bacteria 0 SEEN Urine Mucus 0 SEEN Radiography Diagnostic Testing: Clinical Impression(s) from Imaging Studies Abdomen/Pelvis CT 01/14/25 20:01 IMPRESSION: 1. Small right and trace left pleural effusions. 2. Mild hepatomegaly. 3. Trace pelvic free fluid, likely physiologic. Reading Location: [facility] CT scan of the abdomen and pelvis was obtained. There is no evidence of bowel obstruction or perforation. There is mild hepatomegaly. There is trace fluid in the pelvis that is likely physiologic. This was interpreted by the radiologist. I also independently reviewed the images and did not see any evidence of bowel obstruction or perforation. There is some stool noted in the ascending and rectosigmoid colon. Treatment and Re-Evaluation :: Patient was given IV fluids and morphine. Patient was advised of her findings. Patient was instructed to take stool softeners and laxatives as needed for constipation. Patient was instructed to drink plenty of fluids. Patient was instructed to follow-up with her primary care physician in 5 to 7 days. Patient was instructed to return if worse in any way. Patient understood and was agreeable with the plan. All questions were answered Discharge Plan Triage Chief Complaint: Abd Pain ED Provider: Fabien Amaya Dx/Rx/DC Orders Clinical Impression: Abdominal pain, Constipation Instructions: ED Abdominal Pain Unkn Cause Fem, ED Constipation (Adult) Prescriptions: No Action Dupixent Pen 300 mg/2 mL pen injector 300 mg subcut .COMPLEX Patient Comments: [NO ORIGINAL SIG] Rx Instructions: 300 mg subcutaneously [id number]; risperidone 1 mg tablet 1 mg PO QHS Qty: 30 1RF fluoxetine 20 mg capsule 20 mg PO DAILY Qty: 30 1RF diphenhydramine HCl [Allergy (diphenhydramine)] 25 mg capsule 50 mg PO DAILY PRN (Reason: allergic reaction) propranolol 10 mg tablet 10 mg PO DAILY PRN (Reason: anxiety) Qty: 30 2RF Primary Care Provider: Melissa Jennings Referrals: Melissa Jennings MD [Primary Care Provider, Internal Medicine] - 5-7 Days Print Language: Ukrainian Disposition Disposition: Home, Self Care
[2025-01-14] MEDS: 0.9% Normal Saline (1000mL) 1,000 ML 999 ML IV (19:22)
[2025-01-14 19:25] LABS: Mucous, Urine 0 SEEN /hpf (<or=2+)
[2025-01-14 19:26] LABS: Hematocrit 37.3 % (37-47); Hemoglobin 13.0 g/dL (12.0-15.0); Immature Granulocytes Count 0.010 X10^3/uL (0.0-0.0); Mean Corp Hgb Conc 34.9 g/dL (32-36); Mean Corpuscular Volume 88.4 fL (81-99); Mean Platelet Vol. 11.0 fl (6.2-12.0); NRBC Flagged by Analyzer 0 % (0-5); Platelet Count 190 K/mm3 (150-450); RBC Distribution Width CV 11.8 % (11.6-14.6); RBC Distribution Width SD 38.1 fl (35.1-43.9); Red Blood Count 4.22 M/mm3 (4.2-5.4); White Blood Count 6.2 K/mm3 (4.4-11.0)
[2025-01-14 19:36] LABS: Color, Urine Straw (Yellow); Glucose, Dipstick Normal (Normal); Ketone-Dipstick Negative (Negative); Leukocyte Esterase-Dipstick Negative /ul (Negative); Nitrite-Dipstick Negative (Negative); Occult Blood-Urine Negative /ul (Negative); Protein-Dipstick 15 mg/dl (Negative); Specific Gravity, Urine 1.010 (1.002-1.030); Urine Bilirubin Dipstick Negative (Negative)
[2025-01-14 19:58] LABS: Internal QC Validated? YES +Cl - CLEAR BKGD; Pregnancy, Serum, hCG Quali. NEGATIVE Negative; Record Kit Lot#, Serum Preg. 980607
--- NOTE | 2025-01-14 20:01 | CT_ITS ---
PROCEDURE: ABDOMEN/PELVIS W IV CONT ONLY 01/14/2025 REASON FOR EXAM: ABDOMINAL PAIN TECHNIQUE: Procedure Code: [id number] Modality: CT Procedure: ABDOMEN/PELVIS W IV CONT ONLY Coronal and Sagittal reconstruction series were provided. CONTRAST: 100 cc of Isovue 370 One or more dose reduction techniques were used (e.g., Automated exposure control, adjustment of the mA and/or kV according to patient size, use of iterative reconstruction technique. COMPARISON: None available. FINDINGS: Lung bases: Small right and trace left pleural effusions with adjacent passive atelectasis. Liver: Mildly enlarged measuring 17.5 cm craniocaudally. No obvious hepatic mass. Gallbladder: Unremarkable. No biliary ductal dilatation. Spleen: Normal size. Pancreas: Normal size without evidence of mass surrounding inflammation or ductal dilation. Adrenals: No adrenal masses. Kidneys: Normal renal sizes. No hydronephrosis. Bladder: Unremarkable. Reproductive Organs: Normal uterine size and contour. IUD in place. Ovaries are unremarkable. Bowel: No bowel obstruction. No inflammatory changes. Appendix: Normal. Lymph nodes: Unremarkable. Vasculature: The abdominal aorta and IVC are normal. Peritoneum / Retroperitoneum: Small volume free fluid in the pelvis nonspecific and usually physiologic in a female patient of this age. No intraperitoneal free air. Bones: Bone window is unremarkable. No acute fractures. CT/Abdomen/Pelvis W IV Cont ONLY IMPRESSION: 1. Small right and trace left pleural effusions. 2. Mild hepatomegaly. 3. Trace pelvic free fluid, likely physiologic. Reading Location: [facility]
[2025-01-14 20:07] LABS: Red Blood Cells-Urine 0-5 SEEN /hpf (0-5); Squamous Epithelial Cells - UA 0-5 SEEN /hpf (5-10)
[2025-01-14 20:10] LABS: AST(SGOT) 15 U/L (<=31); Alanine Aminotransfer ALT/SGPT 20 U/L (<=34); Albumin, Serum 4.4 g/dL (3.5-5.0); Alkaline Phosphatase 64 U/L (35-104); Anion Gap 12 (5-15); BUN 13 mg/dL (4-19); BUN/Creat Ratio 14.8 RATIO (10-20); Calcium,Total 8.9 mg/dL (7.6-11.0); Carbon Dioxide 26.0 mmol/L (21.0-32.0); Chloride 104 mmol/L (98-108); Estimated Creatinine Clearance 78.63 ml/min (50-250); Globulin 2.0 g/dL (2.2-4.2); Glucose 79 mg/dL (70-99); Lipase 47 U/L (13-75); Potassium 3.4 mmol/L (3.3-5.1)
[2025-01-14 20:13] VITALS: BP 125/57; PULSE 73; RESP 18; TEMP 37; O2SAT 98
[2025-01-14 20:54] VITALS: BP 125/57; PULSE 73; RESP 18; TEMP 37; O2SAT 98
== END 2025-01-14 20:56 | disposition home or self-care (01) ==
PROVIDERS: Emergency Provider Emergency Medicine; PCP Internal Medicine; Visit Provider Emergency Medicine
DX: R10.9 Unspecified abdominal pain (principal); K59.00 Constipation, unspecified; R11.0 Nausea; F32.A Depression, unspecified; F41.9 Anxiety disorder, unspecified; Z79.899 Other long term (current) drug therapy; F17.290 Nicotine dependence, other tobacco product, uncomplicated
CPT/HCPCS: 74177; 80053; 81001; 83690; 84703; 85025; 96361; 96374; 99283; Q9967